=== PATIENT | male | born 1945 | race Caucasian/White ===

== ENCOUNTER → 2017-11-24 08:44 | Outpatient (CLI) | payer MEDICARE, OTHER, SELFPAY ==
[2017-11-24 10:03] LABS: AST(SGOT) 20 U/L (15-37); Alanine Aminotransfer ALT/SGPT 22 U/L (16-61); Albumin, Serum 3.5 g/dL (3.2-5.0); Alkaline Phosphatase 58 U/L (45-117); Bilirubin, Direct 0.26 mg/dL (0.00-0.30); Cholesterol 142 mg/dL (200); High Density Lipoprotein 48 mg/dL; Protein, Total 6.5 g/dL (6.4-8.2); Triglycerides 131 mg/dL; Very Low Density Lipoprotein 26 mg/dL (5-40)
== END ==
PROVIDERS: Family Provider Internal Medicine; PCP Internal Medicine; Visit Provider Internal Medicine Cardiovascular Disease
DX: E78.5 Hyperlipidemia, unspecified (principal); Z79.899 Other long term (current) drug therapy
CPT/HCPCS: 36415; 80061; 80076

== ENCOUNTER → 2018-04-30 10:15 | Outpatient (CLI) | payer MEDICARE, OTHER, SELFPAY ==
[2018-04-30 11:55] LABS: AST(SGOT) 23 U/L (15-37); Alanine Aminotransfer ALT/SGPT 24 U/L (16-61); Albumin, Serum 3.3 g/dL (3.2-5.0); Alkaline Phosphatase 61 U/L (45-117); Bilirubin, Direct 0.19 mg/dL (0.00-0.30); Cholesterol 129 mg/dL (200); Globulin 2.9 g/dL (2.2-4.2); High Density Lipoprotein 46 mg/dL; Protein, Total 6.2 g/dL (6.4-8.2); Triglycerides 95 mg/dL; Very Low Density Lipoprotein 19 mg/dL (5-40)
== END ==
PROVIDERS: Family Provider Internal Medicine; PCP Internal Medicine; Visit Provider Physician Assistant Medical
DX: E78.5 Hyperlipidemia, unspecified (principal); I25.810 Atherosclerosis of coronary artery bypass graft(s) without angina pectoris; Z79.899 Other long term (current) drug therapy
CPT/HCPCS: 80061; 80076

== ENCOUNTER 2018-05-10 04:40 | Inpatient (IN) | payer MEDICARE, OTHER, SELFPAY ==
[2018-05-10] VITALS (26 sets, daily range): BP systolic 63–124; BP diastolic 38–83; PULSE 69–104; RESP 16–20; TEMP 21.1–37.2; O2SAT 94–100; BMI 28.8; BMI 24.6; BMI 24.7
--- NOTE | 2018-05-10 | IMM_PTH ---
PATIENT: MARSHAL PIERCE LOC: [facility] U#:[id number] AGE/SX: 72/M ROOM: [facility] RE05/10/[address]: Dr. Tavia Putnam MD : [id number] BED: 1 DIS: 05/12/2018 SPEC #: [id number] RECD: 05/10/18 14:41 STATUS: SOUT REQ #: [id number] PETE: 05/10/18 00:[address]: Josue Patrick DEPT: IMMUNOHISTOCHEMISTRY RECD BY: Judy Thompson ENTERED: 05/10/18 14:42 SP TYPE: IMMUNO OTHR DR: MD Dr. Becky Cristina MD Dr. Prakash Chand, MD Tissues: Stomach, NOS Procedures: H Pylori (initial) Comments: @ Ordering doctor for H.PYLORI edited from to @ by SHANTEL at 05/10/18 144 @ Submitting doctor edited from to @ by SHANTEL at 05/10/18 144 PHYSICIAN & [place] [id number] SPECIMEN INFORMATION: Tissue Source: Antrum biopsy Clinical Info: GI bleed Specimen Number: [id number] CPT code: 72584 METHODOLOGY: Deparaffinized sections of prefer/formalin-fixed tissue or PAP/DQ stained slides are incubated with monoclonal/polyclonal antibodies/oligonucleotide probes. Localization is made via biotin free immunoperoxidase method. Appropriate controls are performed and reacted as expected. Results on target cell population are indicated in the following table: RESULTS: ANTIBODY / CLONE RESULT H Pylori (polyclonal) negative These tests were developed and their performance characteristics determined by [facility]. They may not have been cleared or approved by the U.S. Food and Drug Administration. The FDA has determined that such clearance or approval is not necessary. INTERPRETATION: Antrum biopsy: Negative for Helicobacter pylori organisms. ALONSO:gavino 05/11/18
--- NOTE | 2018-05-10 04:56 | EKG12_ITS ---
Test Reason : SOB Blood Pressure : / mmHG Vent. Rate : 094 BPM Atrial Rate : 094 BPM P-R Int : 184 ms QRS Dur : 150 ms QT Int : 400 ms P-R-T Axes : 054 -52 037 degrees QTc Int : 500 ms Normal sinus rhythm Right bundle branch block Left anterior fascicular block Bifascicular block Minimal voltage criteria for LVH, may be normal variant Cannot rule out Inferior infarct , age undetermined Abnormal ECG Confirmed by CESAR PAZ, RAKAN ([id number]), photographic editor SUHA HERNÁNDEZ ([id number]) on 05/11/2018 1:59:46 PM Referred By: IRMA Confirmed By:RAKAN GUERRERO MD
--- NOTE | 2018-05-10 04:56 | RAD_ITS ---
STUDY: X-RAY CHEST REASON FOR EXAM: Male, 72 years old. Shortness of breath and weakness TECHNIQUE: Single AP portable view of the chest. COMPARISON: 10/21/2014 FINDINGS: There are superimposed monitor leads. Postsurgical changes bilateral mediastinum as on previous exam. There is hyperinflation of the lungs consistent with chronic obstructive lung disease (COPD). Mild compression of bilateral basilar parenchyma. No focal consolidation detected. There is no demonstrated pleural abnormality. Sternal cerclage wires are present from a prior sternotomy. Normal mediastinum and christoph. Normal visualized pulmonary arteries. There is atherosclerotic calcification of the aortic arch with tortuosity. Obscured thoracic spine. Air distention off intestine below the left diaphragm. RAD/Chest 1 View (Portable) IMPRESSION: Stable COPD and postsurgical changes. Nonspecific compression of basilar parenchyma without confluent pneumonia. Other nonacute findings as outlined above. Electronically Signed: Carol Adhikari MD at 5:40 EDT , Service support ,
[2018-05-10] MEDS: Aspirin 81 MG TAB.CHEW 324 MG PO (05:00)
[2018-05-10 05:17] LABS: Anion Gap 9 (5-15); BUN 47 mg/dL (7-18); BUN/Creat Ratio 48.4 RATIO (10-20); Chloride 107 mmol/L (98-107); Creatinine, Serum 0.97 mg/dL (0.70-1.30); EST Glomerular Filtration Rate 80 mL/min (>60); Est Glom Filt Rate - Afr Amer 97 mL/min (>60); Estimated Creatinine Clearance 73.33 ml/min; Glucose 185 mg/dL (74-106); Potassium 4.8 mmol/L (3.5-5.1); Sodium Level 142 mmol/L (136-145)
[2018-05-10 05:18] LABS: Absolute Lymphocyte Count 2.65 X10^3/ul (0.83-4.51); Absolute Neutrophil Count 7.5 X10^3/uL (2.0-7.7); Basophil# 0.03 X10^3/uL; Basophil% 0.3 % (0-1); Eosinophil# 0.08 X10^3/uL; Eosinophils% 0.7 % (0-5); Hematocrit 35.2 % (40-54); Hemoglobin 11.7 g/dl (13.0-16.5); Lymphocyte # 2.65 X10^3/ul (4.0); Lymphocyte % 24.7 % (19-41); Mean Corp Hgb Conc 33.2 g/gl (32-36); Mean Corpuscular Hgb 31.9 pg (27.0-32.0); Mean Corpuscular Volume 95.9 fL (80-94); Mean Platelet Vol. 11.9 fl (6.2-12.0); Monocyte# 0.44 X10^3/uL; Monocyte% 4.1 % (0-10); Neutrophil # 7.49 X10^3/uL (2.7-7.7); Neutrophil % 69.9 % (47-70); Platelet Count 127 K/mm3 (150-450); RBC Distribution Width SD 43.8 fl (35.1-43.9); Red Blood Count 3.67 M/mm3 (4.6-6.2); White Blood Count 10.7 K/mm3 (4.4-11.0)
[2018-05-10 05:21] LABS: International Normalized Ratio 1.2; Prothrombin Time (Protime)PT. 14.9 SECONDS (11.7-14.9)
[2018-05-10 05:26] LABS: POSITIVE COUNT NO; POSITIVE DIFFERENTIAL NO; POSITIVE MORPHOLOGY NO
--- NOTE | 2018-05-10 05:47 | PCM.HP.STD ---
Problem List (1) HTN (hypertension) Status: Chronic Qualifiers: Hypertension type: essential hypertension Qualified Code(s): I10 - Essential (primary) hypertension (2) Paroxysmal ventricular tachycardia Status: Chronic (3) Atherosclerotic heart disease of [place] coronary artery without angina pectoris Status: Chronic Qualifiers: [place] vs. transplanted heart: unspecified whether [place] or transplanted heart Qualified Code(s): I25.10 - Atherosclerotic heart disease of [place] coronary artery without angina pectoris (4) Aortocoronary bypass status Status: Chronic Comment: CABG TORRES graft LAD, KAMLESH graft to RCA, sapehnous vein graft to Diag 1 (5) Hyperlipidemia Status: Chronic Qualifiers: Hyperlipidemia type: pure hypercholesterolemia Qualified Code(s): E78.00 - Pure hypercholesterolemia, unspecified; E78.0 - Pure hypercholesterolemia History of Present Illness Date of Admission: 05/10/18 Chief Complaint: Dyspnea, diaphoresis The patient is a 72 y/o M w/ PMHx: Hx PVT, HTN, HLD, Former tobacco use, CAD s/p CABG TORRES graft LAD, KAMLESH graft to RCA, sapehnous vein graft to Diag 1 and PCI LCx 05/24/12 and ROSY to LCx secondary to severe in-stent stenosis 12/03/14 who presents to the [facility] ED on 05/10/18 with intermittent diaphoresis and dyspnea over the starting the evening prior to presentation, noted to last < 5 minutes, occurring at rest and resolving; however, he had a more severe episode lasted ~1 hour prompting him to call EMS. He also notes the evening prior having had food that seemed to have not sat well with him with nausea without emesis and stool x 2, the 2nd more soft which is not his usual bowel pattern. Upon ED presentation he noted his symptoms to have resolved and had no further recurrence in the ED. No furthter symptoms upon ED presentation. In the ED work-up included T 97.6, heart rate 104-->88, BP 117/83--> 94/64, respiratory rate 20, 98% on room air, CBC with WBC 10.7, hemoglobin 11.7, platelet 127 without shift, unremarkable coags, BMP with BUN 47, glucose 25, troponin less than 0.015, EKG with slight elevation noted in lead III only, no ST elevation in 2 or aVF, some ST depression in leads V2 and V3 slightly changed from prior, chest x-ray with chronic COPD changes. In ED patient administered aspirin. He most recently evaluated by his executive administrative assistant on 05/07/18. He had a most recent stress test on 05/09/17 which demonstrated evidence of prior myocardial injury no acute evidence of ischemia and was scheduled to have a stress testing per his executive administrative assistant on 05/11/18. Past Medical History Past Medical History (Chronic Problems): Chronic Problems (Last Reviewed 05/07/18 @ 13:15 by Nurys Saldana) HTN (hypertension) (Chronic) Paroxysmal ventricular tachycardia (Chronic) Atherosclerotic heart disease of [place] coronary artery without angina pectoris (Chronic) Presence of stent in coronary artery (Chronic) PTCA with stenting of CX, 05/24/12 @ [facility]; [facility] with ROSY to LCx 12/03/14 Aortocoronary bypass status (Chronic ~07/1986) CABG TORRES graft LAD, KAMLESH graft to RCA, sapehnous vein graft to Diag 1 Encounter for long-term current use of high risk medication (Chronic) Supraventricular tachycardia (Chronic) Hyperlipidemia (Chronic) Medical History: Medical History (Last Reviewed 05/07/18 @ 13:15 by Nurys Saldana) Premature ventricular contraction (Acute) I49.3 Premature atrial contractions (Acute) I49.1 Paroxysmal ventricular tachycardia (Chronic) I47.2 Atherosclerotic heart disease of [place] coronary artery without angina pectoris (Chronic) I25.10 Presence of stent in coronary artery (Chronic) Z95.5 PTCA with stenting of CX, 05/24/12 @ [facility]; [facility] with ROSY to LCx 12/03/14 Encounter for long-term current use of high risk medication (Chronic) Z79.899 Supraventricular tachycardia (Chronic) I47.1 Old myocardial infarction (Resolved) I25.2 1985 Hyperlipidemia (Chronic) E78.5 Allergies No Known Allergies Allergy (Verified 05/10/18 04:45) Home Medications: Ambulatory Orders Medication Instructions Recorded aspirin 81 mg tablet,delayed 81 mg PO QDAY tab 11/23/17 release atorvastatin 80 mg tablet 40 mg PO QDAY 11/23/17 coenzyme Q10 100 mg capsule 100 mg PO QDAY 11/23/17 niacin ER 1,000 mg tablet,extended 1,000 mg PO QDAY tab 11/23/17 release nitroglycerin 0.4 mg sublingual 0.4 mg SUBLINGUAL Q5M PRN 11/23/17 tablet clopidogrel 75 mg tablet 75 mg PO QDAY #90 tab 11/27/17 ezetimibe 10 mg tablet 10 mg PO QDAY #90 tab 11/27/17 flaxseed oil 1,000 mg capsule 1,000 mg PO QDAY 11/27/17 lutein 6 mg capsule 6 mg PO QDAY 11/27/17 metoprolol succinate ER 25 mg 25 mg PO QDAY #90 tab 11/27/17 tablet,extended release 24 hr Surgical History: Surgical History (Last Updated 05/07/18 @ 13:15 by Nurys Saldana) Aortocoronary bypass status (Chronic) Onset Date: ~07/1986 Z95.1 CABG TORRES graft LAD, KAMLESH graft to RCA, sapehnous vein graft to Diag 1 Postsurgical percutaneous transluminal coronary angioplasty (PTCA) status Z98.61 PTCA with stenting of CX, 05/24/12 @ [facility]; [facility] with ROSY to LCx 12/03/14 History of eye surgery Z98.890 History of local excision of skin lesion Z98.890 Lt lower eyelid Surgical History: - - CABG, PCI, BL lower lid region skin CA resection. Psychiatric History: No pertinent psych hx Lives: Spouse/ Significant Other Smoking Status: Former smoker - Quit when he had his CABG 1985. Tobacco Use: Non-smoker Alcohol: None Drugs: None - *Family History Maternal Family History: Family History (Last Reviewed 05/07/18 @ 13:15 by Nurys Saldana) Father CAD (coronary artery disease) Mother CAD (coronary artery disease) Myocardial infarction History Items: Heart Disease Paternal Family History: Family History (Last Reviewed 05/07/18 @ 13:15 by Nurys Saldana) Father CAD (coronary artery disease) Mother CAD (coronary artery disease) Myocardial infarction History Items: Heart Disease Review of Systems Constitutional: Reports: Anorexia, Malaise, Weakness, Fatigue. Denies: Chills, Fever, Weight Change HEENT: Denies: Head Aches, Sinus Congestion, Sinus Drainage Cardiovascular: Denies: Chest Pain, Palpitations Respiratory: Reports: Shortness of Breath, Shortness of breath at rest, Shortness of breath upon exertion. Denies: Cough, Sputum production Gastrointestinal: Reports: Abdominal Pain - Stomach upset/dyspepsia., Dyspepsia, Nausea. Denies: Vomiting Genitourinary: Denies: Dysuria Musculoskeletal: Denies: Joint Pain, Joint Tenderness Skin: Denies: Rash, Wounds Neurological: Denies: Numbness, Tingling, Focal weakness Psychiatric: Denies: Anxiety, Depression, Homicidal Ideations, Suicidal Ideations Hematologic/ Lymphatic: Reports: Anemia. Denies: Easy Bruising, Easy Bleeding VTE Information - Inpt Only VTE Present on Admission: No VTE Mechan Device Prophylaxis: SCD's VTE Pharm Prophylaxis ordered?: Yes Subjective: Seated upright in the ED bed, NAD, notes no current dyspnea, still mild stomach upset and food does not sound appealing. Objective: Physical Examination: General: awake, alert, oriented x 3 and cooperative, seated upright in the ED bed in no apparent distress. Skin: Pale color, turgor, no icterus, cyanosis. HEENT: AT/NC, EOMI, PERRLA, mildly dry MM, no carotid bruits or JVD noted. Lungs: Diminished BS CTA bilaterally, moderate effort, mild decrease BL bases, no rales, ronchi or wheezing. Heart: Regular rate and rhythm; no gallop, rub audible. Abdomen: soft, NTTP, ND, hyperactive BS, no HSM. Extremities: no cyanosis, clubbing, or edema. Neurological: patient awake, alert, oriented x 3; cognitive function intact; pupils equally reactive to light and accomodation; cranial nerves II-XII grossly normal, moving all 4 extremities, no focal deficits, strength moderately globally decreased secondary to acute presentation. Psychiatric: affect appears mildly fatigued, no acute evidence of depressive or anxiety feelings. - Physical Exam Vital Signs Temp Pulse Resp BP Pulse Ox 97.6 F L 104 H 20 H 117/83 H 98 05/10/18 04:41 05/10/18 04:41 05/10/18 04:41 05/10/18 04:41 05/10/18 04:41 Oxygen Flow Rate (L/min) 2 Oxygen Delivery Method Nasal Cannula Weight: 212 lb 8.41 oz Body Mass Index (BMI) 28.8 Laboratory Tests Past 24 Hrs 05/10/18 05/10/18 05/10/18 04:45 04:45 04:45 WBC 10.7 RBC 3.67 L Hgb 11.7 L Hct 35.2 L MCV 95.9 H MCH 31.9 MCHC 33.2 RDW 13.0 RDW Differential 43.8 Plt Count 127 L MPV 11.9 Immature Gran % (Auto) 0.300 Neut % (Auto) 69.9 Lymph % (Auto) 24.7 [place] % (Auto) 4.1 Eos % (Auto) 0.7 Baso % (Auto) 0.3 Absolute Neuts (auto) 7.5 Absolute Lymphs (auto) 2.65 Total Counted Not Reportable PT 14.9 INR 1.2 Sodium 142 Potassium 4.8 Chloride 107 Carbon Dioxide 26.0 Anion Gap 9 BUN 47 H Creatinine 0.97 Estim Creat Clear Calc 73.33 Est GFR (MDRD) Af Amer 97 Est GFR (MDRD) Non-Af 80 BUN/Creatinine Ratio 48.4 H Glucose 185 H Calcium 8.0 L Troponin I < 0.015 Assessment/Plan All Active Problems (Last Reviewed 05/07/18 @ 13:15 by Nurys Saldana) Premature ventricular contraction (Acute) Premature atrial contractions (Acute) Old myocardial infarction (Resolved) The patient is a 72 y/o M w/ PMHx: Hx PVT, HTN, HLD, Former tobacco use, CAD s/p CABG TORRES graft LAD, KAMLESH graft to RCA, sapehnous vein graft to Diag 1 and PCI LCx 05/24/12 and ROSY to LCx secondary to severe in-stent stenosis 12/03/14 who presents to the [facility] ED on 05/10/18 with intermittent diaphoresis and dyspnea over the starting the evening prior to presentation, noted to last < 5 minutes, occurring at rest and resolving; however, he had a more severe episode lasted ~1 hour prompting him to call EMS. (1) Dyspnea, Diaphoresis: ED work-up included T 97.6, heart rate 104--> 88, BP 117/83--> 94/64, respiratory rate 20, 98% on room air, CBC with WBC 10.7, hemoglobin 11.7, platelet 127 without shift, unremarkable coags, BMP with BUN 47, glucose 25, troponin less than 0.015, EKG with slight elevation noted in lead III only, no ST elevation in 2 or aVF, some ST depression in leads V2 and V3 slightly changed from prior, chest x-ray with chronic COPD changes. Will admit to PCU, place on a monitored bed to assure no acute myocardial infarction with serial cardiac enzymes and EKGs. Patient is able to perform exercise and does not have LBBB or V-pacing but does have history of PCI/ST-T changes with unclear wall motion abnormality at rest thus will proceed with AM nuclear treadmill stress test. ASA, NG, morphine. FLP in AM. Mag pending. (2) CAD: s/p CABG TORRES graft LAD, KAMLESH graft to RCA, sapehnous vein graft to Diag 1 and PCI LCx 05/24/12 and ROSY to LCx secondary to severe in-stent stenosis 12/03/14, maintain on asa, plavix, BB, statin therapies. (3) Normocytic anemia: Admission Hgb 11.7, unclear baseline, Fe panel, ferritin, vitamin B12, folic acid pending. (4) Hyperlipidemia: Continue home statin regimen. AM FLP. (5) Hyperglycemia: Admission glucose 185, HgbA1c pending. (6) Former Tobacco use w/ Suspected Chronic COPD: ATC duonebs, PRN albuterol, HOB, IS parameters, encouraged PFTs w/ PCP outpatient. (7) Dyspepsia, Stomach Upset: Possibly secondary to #1; however, may be concurrent mild gastroenteritis, food poisoning. IVFs, PRN antiemetics. (8) DVT Prophylaxis: SCDs, lovenox. Code Visit OBSV E&M: 94060 Initial observation care L3
--- NOTE | 2018-05-10 05:53 | ED.DCSUM_ITS ---
- ER Visit Summary Date of Service: 05/10/18 Chief Complaint: Shortness of breath and diaphoresis History of Present Illness: The patient is a 72 M who presents with shortness of breath and diaphoresis. This has been intermittently occurring all night. He states he is intermittently became diaphoretic and short of breath and this has lasted 5-10 minutes. However before presentation he had a more severe episode which lasted about an hour. Currently he is not short of breath while resting in the bed. His diaphoresis has resolved. He had no associated chest pain. He otherwise denies recent illness except for some mild rhinorrhea. No fever cough nausea vomiting. He is concerned because he does have a significant history of coronary disease and prior PA. He notes that he never had chest pain with his previous heart attacks. He has a history of prior CABG and stents. He is actually scheduled for a routine yearly stress test tomorrow. Physical Examination: Heart rate 104 respiratory rate 20 vitals otherwise unremarkable Patient does appear to have pallor he is not currently diaphoretic Heart regular rate and rhythm Lungs are clear Abdomen soft and nontender Extremities nontender without edema 2+ symmetric radial pulses Test Results: EKG shows sinus rhythm at a rate of 94 with a right bundle branch block and left anterior fascicular block. There is slight elevation noted in lead III only, no ST elevation in 2 or aVF. There is some ST depression in leads V2 and V3. This is slightly changed from prior. Labs notable for hemoglobin 11.7, platelets 127. BUN is 47. Troponin is negative. Chest x-ray shows chronic changes and COPD no consolidation or acute process. Emergency Department Course and Treatment: Patient was given aspirin. Currently he denies any pain or shortness of breath. I am concerned that this is due to cardiac pathology. I feel he will require repeat EKGs serial troponins and cardiology consultation for further evaluation and management. Patient will be discussed with hospitalist and admitted. Treatment Plan: [] Disposition: Admit Impression: Shortness of breath Diaphoresis This note was generated with [employer] dictation software. It may contain incorrect words, spelling, and punctuation that were not noted in review of the chart prior to signing ED Disposition - Plan for ED Patient: Chief Complaint: Shortness of Breath Referrals: Becky Cabral MD [Primary Care Provider] -
--- NOTE | 2018-05-10 05:56 | HP.PCM_ITS ---
Problem List (1) HTN (hypertension) Status: Chronic Qualifiers: Hypertension type: essential hypertension Qualified Code(s): I10 - Essential (primary) hypertension (2) Paroxysmal ventricular tachycardia Status: Chronic (3) Atherosclerotic heart disease of [place] coronary artery without angina pectoris Status: Chronic Qualifiers: [place] vs. transplanted heart: unspecified whether [place] or transplanted heart Qualified Code(s): I25.10 - Atherosclerotic heart disease of [place] coronary artery without angina pectoris (4) Aortocoronary bypass status Status: Chronic Comment: CABG TORRES graft LAD, KAMLESH graft to RCA, sapehnous vein graft to Diag 1 (5) Hyperlipidemia Status: Chronic Qualifiers: Hyperlipidemia type: pure hypercholesterolemia Qualified Code(s): E78.00 - Pure hypercholesterolemia, unspecified; E78.0 - Pure hypercholesterolemia History of Present Illness Date of Admission: 05/10/18 Chief Complaint: Dyspnea, diaphoresis The patient is a 72 y/o M w/ PMHx: Hx PVT, HTN, HLD, Former tobacco use, CAD s/p CABG TORRES graft LAD, KAMLESH graft to RCA, sapehnous vein graft to Diag 1 and PCI LCx 05/24/12 and ROSY to LCx secondary to severe in-stent stenosis 12/03/14 [address] the [facility] ED on 05/10/18 with intermittent diaphoresis and dyspnea over the starting the evening prior to presentation, noted to last < 5 minutes, occurring at rest and resolving; however, he had a more severe episode lasted ~1 hour prompting him to call EMS. He also notes the evening prior having had food that seemed to have not sat well with him with nausea without emesis and stool x 2, the 2nd more soft which is not his usual bowel pattern. Upon ED presentation he noted his symptoms to have resolved and had no further recurrence in the ED. No furthter symptoms upon ED presentation. In the ED work-up included T 97.6, heart rate 104-->88, BP 117/83--> 94/64, respiratory rate 20, 98% on room air, CBC with WBC 10.7, hemoglobin 11.7, platelet 127 without shift, unremarkable coags, BMP with BUN 47, glucose 25, troponin less than 0.015, EKG with slight elevation noted in lead III only, no ST elevation in 2 or aVF, some ST depression in leads V2 and V3 slightly changed from prior, chest x-ray with chronic COPD changes. In ED patient administered aspirin. He most recently evaluated by his camera repairman on 05/07/18. He had a most recent stress test on 05/09/17 which demonstrated evidence of prior myocardial injury no acute evidence of ischemia and was scheduled to have a stress testing per his camera repairman on 05/11/18. Past Medical History Past Medical History (Chronic Problems): Chronic Problems (Last Reviewed 05/07/18 @ 13:15 by Nurys Saldana) HTN (hypertension) (Chronic) Paroxysmal ventricular tachycardia (Chronic) Atherosclerotic heart disease of [place] coronary artery without angina pectoris (Chronic) Presence of stent in coronary artery (Chronic) PTCA with stenting of CX, 05/24/12 @ [facility]; [facility] with ROSY to LCx 12/03/14 Aortocoronary bypass status (Chronic ~07/1986) CABG TORRES graft LAD, KAMLESH graft to RCA, sapehnous vein graft to Diag 1 Encounter for long-term current use of high risk medication (Chronic) Supraventricular tachycardia (Chronic) Hyperlipidemia (Chronic) Medical History: Medical History (Last Reviewed 05/07/18 @ 13:15 by Nurys Saldana) Premature ventricular contraction (Acute) I49.3 Premature atrial contractions (Acute) I49.1 Paroxysmal ventricular tachycardia (Chronic) I47.2 Atherosclerotic heart disease of [place] coronary artery without angina pectoris (Chronic) I25.10 Presence of stent in coronary artery (Chronic) Z95.5 PTCA with stenting of CX, 05/24/12 @ [facility]; [facility] with ROSY to LCx 12/03/14 Encounter for long-term current use of high risk medication (Chronic) Z79.899 Supraventricular tachycardia (Chronic) I47.1 Old myocardial infarction (Resolved) I25.2 1985 Hyperlipidemia (Chronic) E78.5 Allergies No Known Allergies Allergy (Verified 05/10/18 04:45) Home Medications: Ambulatory Orders Medication Instructions Recorded aspirin 81 mg tablet,delayed 81 mg PO QDAY tab 11/23/17 release atorvastatin 80 mg tablet 40 mg PO QDAY 11/23/17 coenzyme Q10 100 mg capsule 100 mg PO QDAY 11/23/17 niacin ER 1,000 mg tablet,extended 1,000 mg PO QDAY tab 11/23/17 release nitroglycerin 0.4 mg sublingual 0.4 mg SUBLINGUAL Q5M PRN 11/23/17 tablet clopidogrel 75 mg tablet 75 mg PO QDAY #90 tab 11/27/17 ezetimibe 10 mg tablet 10 mg PO QDAY #90 tab 11/27/17 flaxseed oil 1,000 mg capsule 1,000 mg PO QDAY 11/27/17 lutein 6 mg capsule 6 mg PO QDAY 11/27/17 metoprolol succinate ER 25 mg 25 mg PO QDAY #90 tab 11/27/17 tablet,extended release 24 hr Surgical History: Surgical History (Last Updated 05/07/18 @ 13:15 by Nurys Saldana) Aortocoronary bypass status (Chronic) Onset Date: ~07/1986 Z95.1 CABG TORRES graft LAD, KAMLESH graft to RCA, sapehnous vein graft to Diag 1 Postsurgical percutaneous transluminal coronary angioplasty (PTCA) status Z98.61 PTCA with stenting of CX, 05/24/12 @ [facility]; [facility] with ROSY to LCx 12/03/14 History of eye surgery Z98.890 History of local excision of skin lesion Z98.890 Lt lower eyelid Surgical History: - - CABG, PCI, BL lower lid region skin CA resection. Psychiatric History: No pertinent psych hx Lives: Spouse/ Significant Other Smoking Status: Former smoker - Quit when he had his CABG 1985. Tobacco Use: Non-smoker Alcohol: None Drugs: None - *Family History Maternal Family History: Family History (Last Reviewed 05/07/18 @ 13:15 by Nurys Saldana) Father CAD (coronary artery disease) Mother CAD (coronary artery disease) Myocardial infarction History Items: Heart Disease Paternal Family History: Family History (Last Reviewed 05/07/18 @ 13:15 by Nurys Saldana) Father CAD (coronary artery disease) Mother CAD (coronary artery disease) Myocardial infarction History Items: Heart Disease Review of Systems Constitutional: Reports: Anorexia, Malaise, Weakness, Fatigue. Denies: Chills, Fever, Weight Change HEENT: Denies: Head Aches, Sinus Congestion, Sinus Drainage Cardiovascular: Denies: Chest Pain, Palpitations Respiratory: Reports: Shortness of Breath, Shortness of breath at rest, Shortness of breath upon exertion. Denies: Cough, Sputum production Gastrointestinal: Reports: Abdominal Pain - Stomach upset/dyspepsia., Dyspepsia, Nausea. Denies: Vomiting Genitourinary: Denies: Dysuria Musculoskeletal: Denies: Joint Pain, Joint Tenderness Skin: Denies: Rash, Wounds Neurological: Denies: Numbness, Tingling, Focal weakness Psychiatric: Denies: Anxiety, Depression, Homicidal Ideations, Suicidal Idea tions Hematologic/ Lymphatic: Reports: Anemia. Denies: Easy Bruising, Easy Bleeding VTE Information - Inpt Only VTE Present on Admission: No VTE Mechan Device Prophylaxis: SCD's VTE Pharm Prophylaxis ordered?: Yes Subjective: Seated upright in the ED bed, NAD, notes no current dyspnea, still mild stomach upset and food does not sound appealing. Objective: Physical Examination: General: awake, alert, oriented x 3 and cooperative, seated upright in the ED bed in no apparent distress. Skin: Pale color, turgor, no icterus, cyanosis. HEENT: AT/NC, EOMI, PERRLA, mildly dry MM, no carotid bruits or JVD noted. Lungs: Diminished BS CTA bilaterally, moderate effort, mild decrease BL bases, no rales, ronchi or wheezing. Heart: Regular rate and rhythm; no gallop, rub audible. Abdomen: soft, NTTP, ND, hyperactive BS, no HSM. Extremities: no cyanosis, clubbing, or edema. Neurological: patient awake, alert, oriented x 3; cognitive function intact; pupils equally reactive to light and accomodation; cranial nerves II-XII grossly normal, moving all 4 extremities, no focal deficits, strength moderately globally decreased secondary to acute presentation. Psychiatric: affect appears mildly fatigued, no acute evidence of depressive or anxiety feelings. - Physical Exam Vital Signs Temp Pulse Resp BP Pulse Ox 97.6 F L 104 H 20 H 117/83 H 98 05/10/18 04:41 05/10/18 04:41 05/10/18 04:41 05/10/18 04:41 05/10/18 04:41 Oxygen Flow Rate (L/min) 2 Oxygen Delivery Method Nasal Cannula Weight: 212 lb 8.41 oz Body Mass Index (BMI) 28.8 Laboratory Tests Past 24 Hrs 05/10/18 05/10/18 05/10/18 04:45 04:45 04:45 WBC 10.7 RBC 3.67 L Hgb 11.7 L Hct 35.2 L MCV 95.9 H MCH 31.9 MCHC 33.2 RDW 13.0 RDW Differential 43.8 Plt Count 127 L MPV 11.9 Immature Gran % (Auto) 0.300 Neut % (Auto) 69.9 Lymph % (Auto) 24.7 [place] % (Auto) 4.1 Eos % (Auto) 0.7 Baso % (Auto) 0.3 Absolute Neuts (auto) 7.5 Absolute Lymphs (auto) 2.65 Total Counted Not Reportable PT 14.9 INR 1.2 Sodium 142 Potassium 4.8 Chloride 107 Carbon Dioxide 26.0 Anion Gap 9 BUN 47 H Creatinine 0.97 Estim Creat Clear Calc 73.33 Est GFR (MDRD) Af Amer 97 Est GFR (MDRD) Non-Af 80 BUN/Creatinine Ratio 48.4 H Glucose 185 H Calcium 8.0 L Troponin I < 0.015 Assessment/Plan All Active Problems (Last Reviewed 05/07/18 @ 13:15 by Nurys Saldana) Premature ventricular contraction (Acute) Premature atrial contractions (Acute) Old myocardial infarction (Resolved) The patient is a 72 y/o M w/ PMHx: Hx PVT, HTN, HLD, Former tobacco use, CAD s/p CABG TORRES graft LAD, KAMLESH graft to RCA, sapehnous vein graft to Diag 1 and PCI LCx 05/24/12 and ROSY to LCx secondary to severe in-stent stenosis 12/03/14 [address] the [facility] ED on 05/10/18 with intermittent diaphoresis and dyspnea over the starting the evening prior to presentation, noted to last < 5 minutes, occurring at rest and resolving; however, he had a more severe episode lasted ~1 hour prompting him to call EMS. (1) Dyspnea, Diaphoresis: ED work-up included T 97.6, heart rate 104--> 88, BP 117/83--> 94/64, respiratory rate 20, 98% on room air, CBC with WBC 10.7, hemoglobin 11.7, platelet 127 without shift, unremarkable coags, BMP with BUN 47, glucose 25, troponin less than 0.015, EKG with slight elevation noted in lead III only, no ST elevation in 2 or aVF, some ST depression in leads V2 and V3 slightly changed from prior, chest x-ray with chronic COPD changes. Will admit to PCU, place on a monitored bed to assure no acute myocardial infarction with serial cardiac enzymes and EKGs. Patient is able to perform exercise and does not have LBBB or V-pacing but does have history of PCI/ST-T changes with unclear wall motion abnormality at rest thus will proceed with AM nuclear treadmill stress test. ASA, NG, morphine. FLP in AM. Mag pending. (2) CAD: s/p CABG TORRES graft LAD, KAMLESH graft to RCA, sapehnous vein graft to Diag 1 and PCI LCx 05/24/12 and ROSY to LCx secondary to severe in-stent stenosis 12/03/14, maintain on asa, plavix, BB, statin therapies. (3) Normocytic anemia: Admission Hgb 11.7, unclear baseline, Fe panel, ferritin, vitamin B12, folic acid pending. (4) Hyperlipidemia: Continue home statin regimen. AM FLP. (5) Hyperglycemia: Admission glucose 185, HgbA1c pending. (6) Former Tobacco use w/ Suspected Chronic COPD: ATC duonebs, PRN albuterol, HOB, IS parameters, encouraged PFTs w/ PCP outpatient. (7) Dyspepsia, Stomach Upset: Possibly secondary to #1; however, may be concurrent mild gastroenteritis, food poisoning. IVFs, PRN antiemetics. (8) DVT Prophylaxis: SCDs, lovenox. Code Visit OBSV E&M: [id number] Initial observation care L3
--- NOTE | 2018-05-10 06:39 | EKG12_ITS ---
Test Reason : ADMISSION EKG Blood Pressure : / mmHG Vent. Rate : 090 BPM Atrial Rate : 090 BPM P-R Int : 164 ms QRS Dur : 152 ms QT Int : 412 ms P-R-T Axes : 073 -51 044 degrees QTc Int : 504 ms Normal sinus rhythm Right bundle branch block Left anterior fascicular block Bifascicular block Cannot rule out Inferior infarct , age undetermined Abnormal ECG Confirmed by Homa Bernstein ([id number]), editor sound SUHA HERNÁNDEZ ([id number]) on 05/14/2018 3:32:55 PM Referred By: Nurys Whitehead Confirmed By:Homa Bernstein
[2018-05-10 07:11] LABS: Ferritin 55 ng/mL (26-388); Iron 160 ug/dL (65-175); Iron Binding Capacity,Total 230 ug/dL (250-450); PERCENT IRON SATURATION 69.6 % (15.0-55.0)
[2018-05-10] MEDS: 0.9% Normal Saline 1,000 ML 100 ML IV (07:18)
[2018-05-10 07:47] LABS: Hemoglobin A1c 5.6 % (4.2-6.3)
--- NOTE | 2018-05-10 08:06 | PCM.PN.HOSP ---
Patient Problems: Active and Suspected Problems (Last Reviewed 05/10/18 @ 12:08 by Alessia Servin PA-C) Hematemesis (Acute) Lightheaded (Acute) Diaphoresis (Acute) Subjective: Nurse called me for hypotension, systolic blood pressure 88/62, map 70/min, heart rate 97/min pulse ox 97% on room air, respiratory rate 18-20/min with hematemesis. Patient had spaghetti and cake last night on the location of his 's birthday. His is not sick. Patient complain of mild upper abdominal discomfort with feeling of diaphoresis and shortness of breath starting last evening. Patient denies any previous history of GI bleed or vomiting. 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 Afterwards, he had 3 stents in left circumflex and is being followed by Dr. Latif. He had seen Dr. Latif a week ago. Patient immediately started on IV Protonix and normal saline 1 L bolus. Was again seen in afternoon. Patient blood pressure has recovered. Blood pressure is 110/69. No tachycardia. Patient had EGD which shows blood clot in the cardia. Cussed with Dr. Josue Patrick Vitals/I&O's: Vital Signs Temp Pulse Resp BP Pulse Ox 97.8 F 97 16 88/62 L 97 05/10/18 06:42 05/10/18 06:42 05/10/18 06:42 05/10/18 06:46 05/10/18 06:42 Oxygen Flow Rate (L/min) 2 Oxygen Delivery Method Room Air Weight: 181 lb 14.102 oz Body Mass Index (BMI) 24.6 General: Alert, Oriented x3, Cooperative HEENT: Atraumatic, PERRLA, EOMI, Normocephalic Neck: Supple, No JVD, Negative Carotid Bruits Lungs: Clear to auscultation, Normal air movement, No rhonchi, No wheeze Cardiovascular: Regular rate, Regular Rhythm, Normal S1, Normal S2, No murmurs, - - On traffic monitor specialist patient has one missed beat otherwise normal sinus rhythm Abdomen: Bowel Sounds Present, Soft, Non Tender Extremities: No edema, Capillary Refill Less than 3 Seconds Skin: No rashes, No breakdown Musculoskeletal: No Tenderness to Palpation of Joints or Extremities Neurological: Cranial nerves II-XII grossly intact Psych/Mental Status: Normal Affect, Appropriate Laboratory Results 05/10/18 04:45: WBC 10.7, RBC 3.67 L, Hgb 11.7 L, Hct 35.2 L, MCV 95.9 H, MCH 31.9, MCHC 33.2, RDW 13.0, RDW Differential 43.8, Plt Count 127 L, MPV 11.9, Immature Gran % (Auto) 0.300, Neut % (Auto) 69.9, Lymph % (Auto) 24.7, [place] % (Auto) 4.1, Eos % (Auto) 0.7, Baso % (Auto) 0.3, Absolute Neuts (auto) 7.5, Absolute Lymphs (auto) 2.65, Total Counted Not Reportable 05/10/18 04:45: PT 14.9, INR 1.2 05/10/18 04:45: Sodium 142, Potassium 4.8, Chloride 107, Carbon Dioxide 26.0, Anion Gap 9, BUN 47 H, Creatinine 0.97, Estim Creat Clear Calc 73.33, Est GFR (MDRD) Af Amer 97, Est GFR (MDRD) Non-Af 80, BUN/Creatinine Ratio 48.4 H, Glucose 185 H, Calcium 8.0 L, Troponin I < 0.015 05/10/18 04:45: Hemoglobin A1c 5.6 05/10/18 04:45: Vitamin B12 Pending 05/10/18 04:45: Iron 160, TIBC 230 L, Iron Saturation 69.6 H, Ferritin 55, Folate 16.80 05/10/18 07:40: Troponin I Pending Current Medications Acetaminophen (Tylenol) 650 mg PO Q6H PRN PRN PRN Reason: Non-cardiac pain (mod-severe) Hydrocodone Bitart/Acetaminophen (Bricelyn 5mg-325mg) 1 - 2 tablet PO Q6H PRN PRN PRN Reason: Moderate-severe pain Al Hydroxide/Mg Hydroxide (Mylanta Ii) 30 ml PO Q6H PRN PRN PRN Reason: Gastric burning Albuterol Sulfate (Ventolin Aerosols) 2.5 mg INHALATION Q2H PRN PRN PRN Reason: dyspnea, wheezing Albuterol/Ipratropium (Duoneb) 3 ml INHALATION Q6HWA.RT THIAGO Atorvastatin Calcium (Lipitor) 40 mg PO QHS [facility] Ezetimibe (Zetia) 10 mg PO DAILY [facility] Famotidine (Pepcid) 20 mg PO BID [facility] Sodium Chloride () 1,000 mls @ 100 mls/hr IV .Q10H [facility] Last Admin: 05/10/18 07:18 Dose: 100 mls/hr Sodium Chloride () 1,000 mls @ 999 mls/hr IV .Q1H1M ONE Stop: 05/10/18 08:39 Pantoprazole Sodium 40 mg/ (Sodium Chloride) 110 mls @ 330 mls/hr IV Q12 [facility] Magnesium Hydroxide (Milk Of Magnesia) 30 ml PO DAILY PRN PRN Reason: Constipation Metoprolol Succinate (Toprol Xl (Beta Corrine)) 25 mg PO DAILY [facility] Morphine Sulfate () 1 - 2 mg IV Q4H PRN PRN PRN Reason: PAIN Nitroglycerin (Nitrostat) 0.4 mg SUBLINGUAL Q5M PRN PRN Reason: CHEST PAIN Ondansetron HCl (Zofran) 4 mg IV Q8H PRN PRN PRN Reason: NAUSEA Promethazine HCl (Phenergan) 12.5 mg IV Q6H PRN PRN PRN Reason: NAUSEA/VOMITING Medical Necessity - Tobacco Use Smoking Status: Former smoker Tobacco Use: Non-smoker Assessment/Plan All Active Problems (Last Reviewed 05/10/18 @ 12:08 by Alessia Servin PA-C) Hematemesis (Acute) Lightheaded (Acute) Diaphoresis (Acute) Premature ventricular contraction (Acute) Premature atrial contractions (Acute) Old myocardial infarction (Resolved) The patient is a 72 y/o M WITH HISTORY OF HTN, HLD, Former tobacco use, CAD s/p CABG TORRES graft LAD, KAMLESH graft to RCA, sapehnous vein graft to Diag 1 and PCI LCx 05/24/12 and ROSY to LCx secondary to severe in-stent stenosis 12/03/14 was 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 1. Hypotension with hypovolemia most probably secondary to upper GI bleed: Started on IV fluid normal saline 1 L bolus and then 125 mill per hour. Titrate IV fluid as per urine output and vitals. General surgeon, Dr. Patrick called in anticipation of need of EGD. Monitor for further any episode of GI bleed. In view of hypotension and hematemesis, hold aspirin, Plavix and Lovenox. Repeat CBC does not show major drop hemoglobin stable at 11.7 and 11.5. Later, patient had EGD which showed a small hiatus hernia. Clotted blood was found in the cardia. Angle of approach was difficult but blood was not dislodged/removed because difficult angle to approach. Gastric antrum was normal. Monitor H&H every 6 hourly. The patient was started on Protonix drip. 2. Dyspnea, diaphoresis with history of coronary artery disease status post CABG and stents high suspicion of angina equivalent: First 2 troponins are negative. Patient had 3 twelve-lead EKG shows normal sinus rhythm with bifascicular block . In view of bifascicular block hard to interpret ST?T wave changes but patient has nonspecific T inversion in V1 and aVR and slight ST depression in V2 to V3. There is mild to be nonspecific in view of bifascicular block. She had a stress test in April 2017 she which reported no obvious ECG patterns during exercise. Chest x-ray chronic COPD changes. In view of follow-up new development, stress test is canceled. 2D echo ordered. Patient also said any previous episodes of MS and in-stent restenosis, he never had chest pain. Serial troponin enzymes to rule out ACS. Discussed verbally with Dr. Latif and reviewed the recent event. He agrees with plan of management. 3. Mild normochromic normal ascitic anemia: Hb terribly stable, 11.7 and 11.5. 4. Other comorbidities include dyslipidemia, hyperglycemia, former tobacco use with chronic COPD: Home medication reconciliation done. DVT propylaxis: On bilateral SCDs. Lovenox discontinued Total time spent in [id number] encounter, review of H&P, vitals, labs and plan of management including hemodynamic monitoring and stabilization, physician consult patient seen and discussion of management with the patient, his and nursing staff total 60 minutes Code Visit Procedures: [id number] Critial Care 1st Hr
--- NOTE | 2018-05-10 08:10 | PN_ITS ---
Patient Problems: Active and Suspected Problems (Last Reviewed 05/10/18 @ 12:08 by Alessia Servin PA-C) Hematemesis (Acute) Lightheaded (Acute) Diaphoresis (Acute) Subjective: Nurse called me for hypotension, systolic blood pressure 88/62, map 70/min, heart rate 97/min pulse ox 97% on room air, respiratory rate 18-20/min with h ematemesis. Patient had spaghetti and cake last night on the location of his 's birthday. His is not sick. Patient complain of mild upper abdominal discomfort with feeling of diaphoresis and shortness of breath starting last evening. Patient denies any previous history of GI bleed or vomiting. He had ND 32 years ago with three-vessel CABG about 3 months later. Afterwards, he had 3 stents in left circumflex and is being followed by Dr. Latif. He had seen Dr. Latif a week ago. Patient immediately started on IV Protonix and normal saline 1 L bolus. Was again seen in afternoon. Patient blood pressure has recovered. Blood pressure is 110/69. No tachycardia. Patient had EGD which shows blood clot in the cardia. Cussed with Dr. Josue Patrick Vitals/I&O's: Vital Signs Temp Pulse Resp BP Pulse Ox 97.8 F 97 16 88/62 L 97 05/10/18 06:42 05/10/18 06:42 05/10/18 06:42 05/10/18 06:46 05/10/18 06:42 Oxygen Flow Rate (L/min) 2 Oxygen Delivery Method Room Air Weight: 181 lb 14.102 oz Body Mass Index (BMI) 24.6 General: Alert, Oriented x3, Cooperative HEENT: Atraumatic, PERRLA, EOMI, Normocephalic Neck: Supple, No JVD, Negative Carotid Bruits Lungs: Clear to auscultation, Normal air movement, No rhonchi, No wheeze Cardiovascular: Regular rate, Regular Rhythm, Normal S1, Normal S2, No murmurs, - - On cardiac nurse specialist patient has one missed beat otherwise normal sinus rhythm Abdomen: Bowel Sounds Present, Soft, Non Tender Extremities: No edema, Capillary Refill Less than 3 Seconds Skin: No rashes, No breakdown Musculoskeletal: No Tenderness to Palpation of Joints or Extremities Neurological: Cranial nerves II-XII grossly intact Psych/Mental Status: Normal Affect, Appropriate Laboratory Results 05/10/18 04:45: WBC 10.7, RBC 3.67 L, Hgb 11.7 L, Hct 35.2 L, MCV 95.9 H, MCH 31.9, MCHC 33.2, RDW 13.0, RDW Differential 43.8, Plt Count 127 L, MPV 11.9, Immature Gran % (Auto) 0.300, Neut % (Auto) 69.9, Lymph % (Auto) 24.7, [place] % (Auto) 4.1, Eos % (Auto) 0.7, Baso % (Auto) 0.3, Absolute Neuts (auto) 7.5, Absolute Lymphs (auto) 2.65, Total Counted Not Reportable 05/10/18 04:45: PT 14.9, INR 1.2 05/10/18 04:45: Sodium 142, Potassium 4.8, Chloride 107, Carbon Dioxide 26.0, Anion Gap 9, BUN 47 H, Creatinine 0.97, Estim Creat Clear Calc 73.33, Est GFR (MDRD) Af Amer 97, Est GFR (MDRD) Non-Af 80, BUN/Creatinine Ratio 48.4 H, Glucose 185 H, Calcium 8.0 L, Troponin I < 0.015 05/10/18 04:45: Hemoglobin A1c 5.6 05/10/18 04:45: Vitamin B12 Pending 05/10/18 04:45: Iron 160, TIBC 230 L, Iron Saturation 69.6 H, Ferritin 55, Folate 16.80 05/10/18 07:40: Troponin I Pending Current Medications Acetaminophen (Tylenol) 650 mg PO Q6H PRN PRN PRN Reason: Non-cardiac pain (mod-severe) Hydrocodone Bitart/Acetaminophen ([place] 5mg-325mg) 1 - 2 tablet PO Q6H PRN PRN PRN Reason: Moderate-severe pain Al Hydroxide/Mg Hydroxide (Mylanta Ii) 30 ml PO Q6H PRN PRN PRN Reason: Gastric burning Albuterol Sulfate (Ventolin Aerosols) 2.5 mg INHALATION Q2H PRN PRN PRN Reason: dyspnea, wheezing Albuterol/Ipratropium (Duoneb) 3 ml INHALATION Q6HWA.RT THIAGO Atorvastatin Calcium (Lipitor) 40 mg PO QHS [facility] Ezetimibe (Zetia) 10 mg PO DAILY [facility] Famotidine (Pepcid) 20 mg PO BID [facility] Sodium Chloride () 1,000 mls @ 100 mls/hr IV .Q10H THIAGO Last Admin: 05/10/18 07:18 Dose: 100 mls/hr Sodium Chloride () 1,000 mls @ 999 mls/hr IV .Q1H1M ONE Stop: 05/10/18 08:39 Pantoprazole Sodium 40 mg/ (Sodium Chloride) 110 mls @ 330 mls/hr IV Q12 [facility] Magnesium Hydroxide (Milk Of Magnesia) 30 ml PO DAILY PRN PRN Reason: Constipation Metoprolol Succinate (Toprol Xl (Beta Corrine)) 25 mg PO DAILY [facility] Morphine Sulfate () 1 - 2 mg IV Q4H PRN PRN PRN Reason: PAIN Nitroglycerin (Nitrostat) 0.4 mg SUBLINGUAL Q5M PRN PRN Reason: CHEST PAIN Ondansetron HCl (Zofran) 4 mg IV Q8H PRN PRN PRN Reason: NAUSEA Promethazine HCl (Phenergan) 12.5 mg IV Q6H PRN PRN PRN Reason: NAUSEA/VOMITING Medical Necessity - Tobacco Use Smoking Status: Former smoker Tobacco Use: Non-smoker Assessment/Plan All Active Problems (Last Reviewed 05/10/18 @ 12:08 by Alessia Servin PA-C) Hematemesis (Acute) Lightheaded (Acute) Diaphoresis (Acute) Premature ventricular contraction (Acute) Premature atrial contractions (Acute) Old myocardial infarction (Resolved) The patient is a 72 y/o M WITH HISTORY OF HTN, HLD, Former tobacco use, CAD s/p CABG TORRES graft LAD, KAMLESH graft to RCA, sapehnous vein graft to Diag 1 and PCI LCx 05/24/12 and ROSY to LCx secondary to severe in-stent stenosis 12/03/14 was admitted der[facility] man 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 1. Hypotension with hypovolemia most probably secondary to upper GI bleed: Started on IV fluid normal saline 1 L bolus and then 125 mill per hour. Titrate IV fluid as per urine output and vitals. General surgeon, Dr. Cebul called in anticipation of need of EGD. Monitor for further any episode of GI bleed. In view of hypotension and hematemesis, hold aspirin, Plavix and Lovenox. Repeat CBC does not show major drop hemoglobin stable at 11.7 and 11.5. Later, patient had EGD which showed a small hiatus hernia. Clotted blood was found in the cardia. Angle of approach was difficult but blood was not dislodged/removed because difficult angle to approach. Gastric antrum was normal. Monitor H&H every 6 hourly. The patient was started on Protonix drip. 2. Dyspnea, diaphoresis with history of coronary artery disease status post CABG and stents high suspicion of angina equivalent: First 2 troponins are negative. Patient had 3 twelve-lead EKG shows normal sinus rhythm with bifascicular block . In view of bifascicular block hard to interpret ST?T wave changes but patient has nonspecific T inversion in V1 and aVR and slight ST depression in V2 to V3. There is mild to be nonspecific in view of bifascicular block. She had a stress test in April 2017 she which reported no obvious ECG patterns during exercise. Chest x-ray chronic COPD changes. In view of follow-up new development, stress test is canceled. 2D echo ordered. Patient also said any previous episodes of ND and in-stent restenosis, he never had chest pain. Serial troponin enzymes to rule out ACS. Discussed verbally with Dr. Latif and reviewed the recent event. He agrees with plan of management. 3. Mild normochromic normal ascitic anemia: Hb terribly stable, 11.7 and 11.5. 4. Other comorbidities include dyslipidemia, hyperglycemia, former tobacco use with chronic COPD: Home medication reconciliation done. DVT propylaxis: On bilateral SCDs. Lovenox discontinued Total time spent in [id number] encounter, review of H&P, vitals, labs and plan of management including hemodynamic monitoring and stabilization, physician consult patient seen and discussion of management with the patient, his and nursing staff total 60 minutes Code Visit Procedures: 97723 Critial Care 1st Hr
--- NOTE | 2018-05-10 08:18 | ECHOCS_ITS ---
Reason For Study: SOB Procedure This was a 2D Doppler, Color Flow transthoracic echocardiogram. The exam was of adequate technical quality. Exam performed portable in patient room. Left Ventricle Normal LV size. Mild concentric left ventricular hypertrophy. Segmental dysfunction with preserved ejection fraction (see wall motion). The estimated ejection fraction is 70 %. Normal diastology for age. Infero-Basal: Akinetic. Right Ventricle Normal RV size. Normal systolic function. Atria Normal left atrium. Normal right atrium. No doppler evidence for ASD. Mitral Valve There is no mitral annular calcification. Normal mitral valve. Trivial mitral valve insufficiency. Tricuspid Valve Normal tricuspid valve. Trivial tricuspid valve insufficiency. Right ventricular systolic pressure estimated to be 28 mmHg. Aortic Valve Trisinus/trileaflet aortic valve. Normal aortic valve. Pulmonic Valve The pulmonic valve is not well visualized. Great Vessels Normal sized aortic root. Pericardium/Pleural No pericardial effusion. MMode/2D Measurements & Calculations LVIDd: 4.2 cm IVSd: 1.3 cm Ao root diam: 3.4 cm LVIDs: 2.7 cm LVPWd: 1.4 cm LA dimension: 3.6 cm RVDd: 3.3 cm FS: 35.8 % LAV(MOD-bp): 26.6 ml EDV(MOD-sp4): 80.3 ml EDV(MOD-sp2): 86.0 ml LAV(MOD-bp) Indexed: 13.0 ml/m2 ESV(MOD-sp4): 23.5 ml EF(MOD-sp2): 63.3 % LAV(MOD-sp2): 31.2 ml EF(MOD-sp4): 70.8 % LAV(MOD-sp4): 22.6 ml SV(MOD-sp4): 56.9 ml SV(MOD-sp2): 54.4 ml LA A4 area: 11.2 cm2 RA A4 area: 9.9 cm2 Doppler Measurements & Calculations MV E max alonso: 45.4 cm/sec Lat Peak E' Alonso: 11.6 cm/sec Med Peak E' Alonso: 8.6 cm/sec MV A max alonso: 73.8 cm/sec E/E' lat: 3.9 E/E' med: 5.3 MV E/A: 0.61 Ao V2 max: 142.2 cm/sec LV V1 max: 104.1 cm/sec PA V2 max: 129.2 cm/sec Ao max P.1 mmHg LV V1 max P.3 mmHg TR max alonso: 250.0 cm/sec TR max P.0 mmHg Interpretation Summary Segmental dysfunction with preserved ejection fraction (see wall motion). The estimated ejection fraction is 70 %. Mild concentric left ventricular hypertrophy. Trivial mitral valve insufficiency. Trivial tricuspid valve insufficiency. Right ventricular systolic pressure estimated to be 28 mmHg. Normal diastology for age. Ordering Physician: Benjamin Coleman Referring Physician: Becky Cabral M.D. Performed By: Raven Farfan RDCS
[2018-05-10] MEDS: 0.9% Normal Saline 1,000 ML 999 ML IV (08:19)
[2018-05-10 08:22] LABS: Absolute Lymphocyte Count 0.82 X10^3/ul (0.83-4.51); Absolute Neutrophil Count 9.7 X10^3/uL (2.0-7.7); Basophil# 0.02 X10^3/uL; Basophil% 0.2 % (0-1); Hematocrit 34.5 % (40-54); Hemoglobin 11.5 g/dl (13.0-16.5); Lymphocyte # 0.82 X10^3/ul (4.0); Lymphocyte % 7.5 % (19-41); Mean Corp Hgb Conc 33.3 g/gl (32-36); Mean Corpuscular Hgb 31.8 pg (27.0-32.0); Mean Corpuscular Volume 95.3 fL (80-94); Monocyte# 0.35 X10^3/uL; Monocyte% 3.2 % (0-10); Neutrophil # 9.67 X10^3/uL (2.7-7.7); Neutrophil % 88.7 % (47-70); POSITIVE COUNT NO; POSITIVE DIFFERENTIAL NO; POSITIVE MORPHOLOGY NO; Platelet Count 122 K/mm3 (150-450); RBC Distribution Width CV 12.9 % (11.6-14.6); RBC Distribution Width SD 43.4 fl (35.1-43.9); Red Blood Count 3.62 M/mm3 (4.6-6.2); White Blood Count 10.9 K/mm3 (4.4-11.0)
[2018-05-10 08:52] LABS: Vitamin B12 425 pg/mL (211-911)
[2018-05-10] MEDS: Metoprolol(XL)Succ 25 MG Tablet PO (09:46)
[2018-05-10] MEDS: Famotidine 20 MG Tablet PO ×2 (09:46→21:16)
[2018-05-10] MEDS: Ezetimibe 10 MG Tablet PO (09:46)
--- NOTE | 2018-05-10 11:33 | PCM.CONS.GEN ---
Problem List (1) Hematemesis Status: Acute (2) Lightheaded Status: Acute (3) Diaphoresis Status: Acute Reason for Consult Date of Consultation: 05/10/18 Reason for Consultation: Acute hematemesis History of Present Illness: The patient is a 72 year old M who presented to the ED with diaphoresis, heaviness in his stomach. Patient noted he was out to eat at an [employer] restaurant for his wives birthday. He had consumed spaghetti, salad, and liliya cracker pie. Patient's noted he told her that his stomach is feeling heavy and that the food feels like it is sitting there. Patient noted he went home and took some TUMs. Patient noted around 1 AM this morning he woke up feeling hot. He tried to go to the bathroom and lay back down. He noted around 0400 AM he became diaphoretic, sweating profusely. Patient had called the squad. He presented to the ED. Patient denies abdominal pain/discomfort, chest pain. He noted shortness of breath and heaviness was his only symptom. Patient noted he was being wheeled to his room in PCU when he went to transfer, he felt lightheaded and nauseated. He vomited one episode of dark, coffee colored emesis. Patient was then placed into bed where his blood pressure was 80's/60's. Patient was given IV boluses. Per patient, ECHO was completed however I am not able to view this. Patient notes a history of cardiac issues. He noted 32 years ago he had a myocardial infarction. He had triple bypass at that time. He has had a stress test almost every year since then. Seventeen years later he had a stress test followed by a cardiac cath with 3 stent placements with non-coated stent. Three years ago he had another abnormal stress test followed by a cardiac cath with a drug coated stent placement within an old stent. Patient is currently on Plavix and aspirin. Patient notes he follows with Dr. Sinha with [facility] and Dr. Latif locally. He notes he is due for a colonoscopy. he denies family history of digestive cancers. He denies smoking. Patient was scheduled for a stress test tomorrow. Patient notes shortness of breath only. Patient notes recent history of basal cell carcinoma excision of the left eye a few weeks ago. Patient's noted he was very nervous for this procedure. She notes since this surgery is when she noticed he was taking more TUMs then normal. Hemoglobin 11.7---->11.5. Platelet count is typically in the 120's. 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 Past Medical History Past Medical History (Chronic Problems): Chronic Problems (Last Reviewed 05/10/18 @ 12:08 by Alessia Servin PA-C) HTN (hypertension) (Chronic) Paroxysmal ventricular tachycardia (Chronic) Atherosclerotic heart disease of [place] coronary artery without angina pectoris (Chronic) Presence of stent in coronary artery (Chronic) PTCA with stenting of CX, 05/24/12 @ [facility]; [facility] with ROSY to LCx 12/03/14 Aortocoronary bypass status (Chronic ~07/1986) CABG TORRES graft LAD, KAMLESH graft to RCA, sapehnous vein graft to Diag 1 Encounter for long-term current use of high risk medication (Chronic) Supraventricular tachycardia (Chronic) Hyperlipidemia (Chronic) Medical History: Medical History (Last Reviewed 05/10/18 @ 12:08 by Alessia Servin PA-C) Premature ventricular contraction (Acute) I49.3 Premature atrial contractions (Acute) I49.1 Paroxysmal ventricular tachycardia (Chronic) I47.2 Atherosclerotic heart disease of [place] coronary artery without angina pectoris (Chronic) I25.10 Presence of stent in coronary artery (Chronic) Z95.5 PTCA with stenting of CX, 05/24/12 @ [facility]; [facility] with ROSY to LCx 12/03/14 Encounter for long-term current use of high risk medication (Chronic) Z79.899 Supraventricular tachycardia (Chronic) I47.1 Old myocardial infarction (Resolved) I25.2 1986 Hyperlipidemia (Chronic) E78.5 Allergies No Known Allergies Allergy (Verified 05/10/18 04:45) Home Medications: Ambulatory Orders Medication Instructions Recorded aspirin 81 mg tablet,delayed 81 mg PO DAILY tab 11/23/17 release coenzyme Q10 100 mg capsule 100 mg PO DAILY 11/23/17 niacin ER 1,000 mg tablet,extended 1,000 mg PO DAILY tab 11/23/17 release nitroglycerin 0.4 mg sublingual 0.4 mg SUBLINGUAL Q5M PRN 11/23/17 tablet flaxseed oil 1,000 mg capsule 1,000 mg PO DAILY 11/27/17 lutein 6 mg capsule 6 mg PO DAILY 11/27/17 Atorvastatin Calcium 40 mg PO QHS 05/10/18 Clopidogrel Bisulfate [Clopidogrel] 75 mg PO DAILY 05/10/18 Ezetimibe 10 mg PO DAILY 05/10/18 Metoprolol(XL)Succ [Toprol Xl 25 mg PO DAILY 05/10/18 (Beta Corrine)] Surgical History: Surgical History (Last Reviewed 05/10/18 @ 12:08 by Alessia Servin PA-C) Aortocoronary bypass status (Chronic) Onset Date: ~07/1986 Z95.1 CABG TORRES graft LAD, KAMLESH graft to RCA, sapehnous vein graft to Diag 1 Postsurgical percutaneous transluminal coronary angioplasty (PTCA) status Z98.61 PTCA with stenting of CX, 05/24/12 @ [facility]; [facility] with ROSY to LCx 12/03/14 History of eye surgery Z98.890 History of local excision of skin lesion Z98.890 Lt lower eyelid Surgical History: - - CABG, PCI, BL lower lid region skin CA resection. Psychiatric History: No pertinent psych hx Lives: Spouse/ Significant Other Smoking Status: Former smoker Tobacco Use: Non-smoker Alcohol: None Drugs: None - *Family History Maternal Family History: Family History (Last Reviewed 05/07/18 @ 13:15 by Nurys Saldana) Father CAD (coronary artery disease) Mother CAD (coronary artery disease) Myocardial infarction History Items: Heart Disease Paternal Family History: Family History (Last Reviewed 05/07/18 @ 13:15 by Nurys Saldana) Father CAD (coronary artery disease) Mother CAD (coronary artery disease) Myocardial infarction History Items: Heart Disease Review of Systems Constitutional: Reports: Malaise, Fatigue HEENT: Denies: Head Aches, Sinus Congestion, Sinus Drainage Cardiovascular: Denies: Chest Pain, Palpitations Respiratory: Reports: Shortness of Breath Gastrointestinal: Reports: Hematemesis Genitourinary: Denies: Dysuria Musculoskeletal: Denies: Joint Pain, Joint Tenderness Skin: Denies: Rash, Wounds Neurological: Denies: Numbness, Tingling, Focal weakness Psychiatric: Denies: Anxiety, Depression, Homicidal Ideations, Suicidal Ideations Hematologic/ Lymphatic: Reports: Easy Bruising, Easy Bleeding Patient Problems: Active and Suspected Problems (Last Reviewed 05/10/18 @ 12:08 by Alessia Servin PA-C) Hematemesis (Acute) Lightheaded (Acute) Diaphoresis (Acute) - Physical Exam General: Alert, Oriented x3, Cooperative HEENT: Atraumatic, PERRLA, EOMI, Normocephalic Neck: Supple, No JVD, Negative Carotid Bruits Lungs: Clear to auscultation, Normal air movement Cardiovascular: Regular rate, No murmurs Abdomen: Bowel Sounds Present, Soft, Non Tender Extremities: No edema, Capillary Refill Less than 3 Seconds Skin: No rashes, No breakdown Musculoskeletal: No Tenderness to Palpation of Joints or Extremities Neurological: Neuro grossly intact Psych/Mental Status: Normal Affect, Appropriate Vital Signs Temp Pulse Resp BP Pulse Ox 98.9 F 91 18 113/61 97 05/10/18 09:40 05/10/18 09:46 05/10/18 09:40 05/10/18 09:40 05/10/18 09:40 Oxygen Flow Rate (L/min) 2 Oxygen Delivery Method Room Air Weight: 181 lb 14.102 oz Body Mass Index (BMI) 24.6 Laboratory Tests Past 24 Hrs 05/10/18 05/10/18 05/10/18 04:45 04:45 04:45 WBC 10.7 RBC 3.67 L Hgb 11.7 L Hct 35.2 L MCV 95.9 H MCH 31.9 MCHC 33.2 RDW 13.0 RDW Differential 43.8 Plt Count 127 L MPV 11.9 Immature Gran % (Auto) 0.300 Neut % (Auto) 69.9 Lymph % (Auto) 24.7 [place] % (Auto) 4.1 Eos % (Auto) 0.7 Baso % (Auto) 0.3 Absolute Neuts (auto) 7.5 Absolute Lymphs (auto) 2.65 Total Counted Not Reportable PT 14.9 INR 1.2 Sodium 142 Potassium 4.8 Chloride 107 Carbon Dioxide 26.0 Anion Gap 9 BUN 47 H Creatinine 0.97 Estim Creat Clear Calc 73.33 Est GFR (MDRD) Af Amer 97 Est GFR (MDRD) Non-Af 80 BUN/Creatinine Ratio 48.4 H Glucose 185 H Hemoglobin A1c Calcium 8.0 L Iron TIBC Iron Saturation Ferritin Troponin I < 0.015 Vitamin B12 Folate 05/10/18 05/10/18 05/10/18 04:45 04:45 04:45 WBC RBC Hgb Hct MCV MCH MCHC RDW RDW Differential Plt Count MPV Immature Gran % (Auto) Neut % (Auto) Lymph % (Auto) [place] % (Auto) Eos % (Auto) Baso % (Auto) Absolute Neuts (auto) Absolute Lymphs (auto) Total Counted PT INR Sodium Potassium Chloride Carbon Dioxide Anion Gap BUN Creatinine Estim Creat Clear Calc Est GFR (MDRD) Af Amer Est GFR (MDRD) Non-Af BUN/Creatinine Ratio Glucose Hemoglobin A1c 5.6 Calcium Iron 160 TIBC 230 L Iron Saturation 69.6 H Ferritin 55 Troponin I Vitamin B12 425 Folate 16.80 05/10/18 05/10/18 05/10/18 07:40 07:40 10:35 WBC 10.9 RBC 3.62 L Hgb 11.5 L Hct 34.5 L MCV 95.3 H MCH 31.8 MCHC 33.3 RDW 12.9 RDW Differential 43.4 Plt Count 122 L MPV 12.0 Immature Gran % (Auto) 0.400 Neut % (Auto) 88.7 H Lymph % (Auto) 7.5 L [place] % (Auto) 3.2 Eos % (Auto) 0.0 Baso % (Auto) 0.2 Absolute Neuts (auto) 9.7 H Absolute Lymphs (auto) 0.82 L Total Counted Not Reportable PT INR Sodium Potassium Chloride Carbon Dioxide Anion Gap BUN Creatinine Estim Creat Clear Calc Est GFR (MDRD) Af Amer Est GFR (MDRD) Non-Af BUN/Creatinine Ratio Glucose Hemoglobin A1c Calcium Iron TIBC Iron Saturation Ferritin Troponin I 0.016 0.019 Vitamin B12 Folate Assessment/Plan All Active Problems (Last Reviewed 05/10/18 @ 12:08 by Alessia Servin PA-C) Hematemesis (Acute) Lightheaded (Acute) Diaphoresis (Acute) Premature ventricular contraction (Acute) Premature atrial contractions (Acute) Old myocardial infarction (Resolved) I have been consulted in conjunction with Dr. Patrick. Impression: Hematemesis, diaphoresis, lightheadedness. Etiology unclear. Plan: Discussed patient with Dr. Patrick. Dr. Patrikc will plan to perform an emergent upper scope. Procedure details, risks and benefits have been explained. Patient and his have had the opportunity to ask and have questions answered. Patient verbally understands and agrees with the plan. Thank you for allowing us to participate in this patient's care. Code Visit Office Visits / Consults: [id number] IP Consult L3
--- NOTE | 2018-05-10 12:51 | OP.ENDO_ITS ---
Patient Name: Mauro Carrillo Procedure Date: 05/10/2018 12:06 PM Date of : 1945 Age: 72 Procedure: Upper GI endoscopy Indications: Hematemesis Providers: Josue Patrick MD Medicines: See the Anesthesia note for documentation of the administered medications Complications: No immediate complications. Procedure: Pre-Anesthesia Assessment: - Prior to the procedure, a History and Physical was performed, and patient medications and allergies were reviewed. The patient's tolerance of previous anesthesia was also reviewed. The risks and benefits of the procedure and the sedation options and risks were discussed with the patient. All questions were answered, and informed consent was obtained. Prior Anticoagulants: The patient has taken Plavix (clopidogrel), last dose was 4 days prior to procedure. ASA Grade Assessment: III - A patient with severe systemic disease. After reviewing the risks and benefits, the patient was deemed in satisfactory condition to undergo the procedure. - Monitored anesthesia care under the supervision of a CHEMISTRY MANAGER was determined to be medically necessary for this procedure based on review of the patient's medical history, medications, and prior anesthesia history. After obtaining informed consent, the endoscope was passed under direct vision. Throughout the procedure, the patient's blood pressure, pulse, and oxygen saturations were monitored continuously. The gastroscope was introduced through the mouth, and advanced to the second part of duodenum. The upper GI endoscopy was performed with difficulty due to excessive bleeding. The patient tolerated the procedure well. Scope In: 12:15:54 PM Scope Out: 12:34:07 PM Total Procedure Duration Time 0 hours 18 minutes 13 seconds Findings: A small hiatal hernia was present. The Z-line was regular and was found 40 cm from the incisors. Clotted blood was found in the cardia. I was not able to completely remove this for visualization. The angle of approach is very difficult. After irrigation and movement of some of the clot I stopped because I did not have an angle to address any bleeding if it were to start. The gastric antrum was normal. Biopsies were taken with a cold forceps for histology. The examined duodenum was normal. Impression: - Small hiatal hernia. - Z-line regular, 40 cm from the incisors. - Clotted blood in the cardia. - Normal antrum. Biopsied. - Normal examined duodenum. Recommendation: - Discontinue aspirin and NSAIDs for 4 days. - Discontinue Plavix (clopidogrel) for 4 weeks. - Observe patient's clinical course. - No aspirin, ibuprofen, naproxen, or other non-steroidal anti-inflammatory drugs for 4 days. Procedure Code(s): --- Professional --- 83697, Esophagogastroduodenoscopy, flexible, transoral; with biopsy, single or multiple Diagnosis Code(s): --- Professional --- K44.9, Diaphragmatic hernia without obstruction or gangrene K92.2, Gastrointestinal hemorrhage, unspecified K92.0, Hematemesis CPT copyright 2017 [employer]. All rights reserved. The codes documented in this report are preliminary and upon senior director review may be revised to meet current compliance requirements. Josue Patrick MD 05/10/2018 12:50:03 PM This report has been signed electronically. Number of Addenda: 0 Note Initiated On: 05/10/2018 12:06 PM
--- NOTE | 2018-05-10 13:00 | EGD_PTH ---
PATIENT: MARSHAL PIERCE LOC: [facility] U#:[id number] AGE/SX: 72/M ROOM: [facility] RE05/10/[address]: Dr. Tavia Putnam MD : [id number] BED: 1 DIS: 05/12/2018 SPEC #: [id number] RECD: 05/10/18 13:37 STATUS: BAO NORA #: [id number] PETE: 05/10/18 13:[address]: Josue Patrick DEPT: SURGICAL PATHOLOGY RECD BY: Stephanie Johnson ENTERED: 05/10/18 14:06 SP TYPE: EGD [facility] DR: MD Dr. Becky Cristina MD Dr. Prakash Chand, MD Tissues: Gastric mucous membrane Procedures: Surgery Specimen Level IV HEADER OPERATION: EGD ([facility] [place]) PRE-OP DIAGNOSIS: GI bleed TISSUE SUBMITTED: Antrum biopsy MICROSCOPIC DIAGNOSIS Antral biopsy: Mild gastritis. Fragments of food particles. ALONSO:gavino 05/11/18 COMMENT The results of immunohistochemistry for Helicobacter pylori will be reported separately ([id number]). MICROSCOPIC DESCRIPTION Slides are reviewed. The specimen shows fragments of gastric mucosa with chronic inflammatory cell infiltrates in the lamina propria consisting of lymphocytes and plasma cells, consistent with mild chronic gastritis. GROSS DESCRIPTION Received in fixative is one container labeled with the patient's name and designated antral biopsy for H. pylori. The specimen consists of one irregular fragment of light woods soft tissue that measures 0.2 x 0.2 x 0.1 cm. The specimen is totally submitted in one cassette. / ALONSO:gavino 05/10/18 TC:3 [facility]: [id number]
[2018-05-10] MEDS: Ipratropium/Albuterol Sulfate 3 ML AMPUL.NEB INHALATION ×2 (13:36→19:40)
[2018-05-10 18:37] LABS: Hematocrit 29.6 % (40-54); Hemoglobin 9.9 g/dl (13.0-16.5)
[2018-05-10] MEDS: Atorvastatin Calcium 40 MG Tablet PO (21:16)
[2018-05-11] VITALS (14 sets, daily range): BP systolic 95–126; BP diastolic 49–67; PULSE 63–78; RESP 16–18; TEMP 36.4–37.1; O2SAT 96–100
[2018-05-11] MEDS: 0.9% Normal Saline 1,000 ML 100 ML IV ×2 (03:19→08:28)
--- NOTE | 2018-05-11 05:12 | PCM.PN.SRG ---
Patient Problems: Active and Suspected Problems (Last Reviewed 05/10/18 @ 12:08 by Alessia Servin PA-C) Hematemesis (Acute) Lightheaded (Acute) Diaphoresis (Acute) Subjective: Pt comfortable,no nausea, no pain, no stools - Physical Exam Abdomen: Soft, Non Tender Vital Signs Temp Pulse Resp BP Pulse Ox 98.5 F 69 16 95/49 L 97 05/11/18 03:20 05/11/18 03:20 05/11/18 03:20 05/11/18 03:20 05/11/18 03:20 Oxygen Flow Rate (L/min) 2 Oxygen Delivery Method Room Air Weight: 181 lb 14.102 oz Body Mass Index (BMI) 24.6 Intake and Output for Last 24 Hours 05/09/18 05/10/18 05/11/18 23:59 23:59 23:59 Intake Total 2594.9 / 2594.9 Output Total 2024 / 2024 Balance 569.9 / 569.9 Laboratory Tests Past 24 Hrs 05/10/18 05/10/18 05/10/18 04:45 04:45 04:45 WBC 10.7 RBC 3.67 L Hgb 11.7 L Hct 35.2 L MCV 95.9 H MCH 31.9 MCHC 33.2 RDW 13.0 RDW Differential 43.8 Plt Count 127 L MPV 11.9 Immature Gran % (Auto) 0.300 Neut % (Auto) 69.9 Lymph % (Auto) 24.7 [place] % (Auto) 4.1 Eos % (Auto) 0.7 Baso % (Auto) 0.3 Absolute Neuts (auto) 7.5 Absolute Lymphs (auto) 2.65 Total Counted Not Reportable PT 14.9 INR 1.2 Sodium 142 Potassium 4.8 Chloride 107 Carbon Dioxide 26.0 Anion Gap 9 BUN 47 H Creatinine 0.97 Estim Creat Clear Calc 73.33 Est GFR (MDRD) Af Amer 97 Est GFR (MDRD) Non-Af 80 BUN/Creatinine Ratio 48.4 H Glucose 185 H Hemoglobin A1c Calcium 8.0 L Iron TIBC Iron Saturation Ferritin Troponin I < 0.015 Vitamin B12 Folate 05/10/18 05/10/18 05/10/18 04:45 04:45 04:45 WBC RBC Hgb Hct MCV MCH MCHC RDW RDW Differential Plt Count MPV Immature Gran % (Auto) Neut % (Auto) Lymph % (Auto) [place] % (Auto) Eos % (Auto) Baso % (Auto) Absolute Neuts (auto) Absolute Lymphs (auto) Total Counted PT INR Sodium Potassium Chloride Carbon Dioxide Anion Gap BUN Creatinine Estim Creat Clear Calc Est GFR (MDRD) Af Amer Est GFR (MDRD) Non-Af BUN/Creatinine Ratio Glucose Hemoglobin A1c 5.6 Calcium Iron 160 TIBC 230 L Iron Saturation 69.6 H Ferritin 55 Troponin I Vitamin B12 425 Folate 16.80 05/10/18 05/10/18 05/10/18 07:40 07:40 10:35 WBC 10.9 RBC 3.62 L Hgb 11.5 L Hct 34.5 L MCV 95.3 H MCH 31.8 MCHC 33.3 RDW 12.9 RDW Differential 43.4 Plt Count 122 L MPV 12.0 Immature Gran % (Auto) 0.400 Neut % (Auto) 88.7 H Lymph % (Auto) 7.5 L [place] % (Auto) 3.2 Eos % (Auto) 0.0 Baso % (Auto) 0.2 Absolute Neuts (auto) 9.7 H Absolute Lymphs (auto) 0.82 L Total Counted Not Reportable PT INR Sodium Potassium Chloride Carbon Dioxide Anion Gap BUN Creatinine Estim Creat Clear Calc Est GFR (MDRD) Af Amer Est GFR (MDRD) Non-Af BUN/Creatinine Ratio Glucose Hemoglobin A1c Calcium Iron TIBC Iron Saturation Ferritin Troponin I 0.016 0.019 Vitamin B12 Folate 05/10/18 18:13 WBC RBC Hgb 9.9 L Hct 29.6 L MCV MCH MCHC RDW RDW Differential Plt Count MPV Immature Gran % (Auto) Neut % (Auto) Lymph % (Auto) [place] % (Auto) Eos % (Auto) Baso % (Auto) Absolute Neuts (auto) Absolute Lymphs (auto) Total Counted PT INR Sodium Potassium Chloride Carbon Dioxide Anion Gap BUN Creatinine Estim Creat Clear Calc Est GFR (MDRD) Af Amer Est GFR (MDRD) Non-Af BUN/Creatinine Ratio Glucose Hemoglobin A1c Calcium Iron TIBC Iron Saturation Ferritin Troponin I Vitamin B12 Folate Medical Necessity - Tobacco Use Smoking Status: Former smoker Tobacco Use: Non-smoker Assessment/Plan All Active Problems (Last Reviewed 05/10/18 @ 12:08 by Alessia Servin PA-C) Hematemesis (Acute) Lightheaded (Acute) Diaphoresis (Acute) Premature ventricular contraction (Acute) Premature atrial contractions (Acute) Old myocardial infarction (Resolved) Will start clears Check serial labs
[2018-05-11 06:30] LABS: Hematocrit 25.8 % (40-54); Hemoglobin 8.6 g/dl (13.0-16.5); Mean Corp Hgb Conc 33.3 g/gl (32-36); Mean Corpuscular Hgb 31.7 pg (27.0-32.0); Mean Corpuscular Volume 95.2 fL (80-94); Mean Platelet Vol. 12.2 fl (6.2-12.0); Platelet Count 90 K/mm3 (150-450); RBC Distribution Width CV 13.2 % (11.6-14.6); Red Blood Count 2.71 M/mm3 (4.6-6.2); White Blood Count 4.8 K/mm3 (4.4-11.0)
[2018-05-11 06:32] LABS: Scan Indicated on CBC? Y/N NO
[2018-05-11 06:33] LABS: International Normalized Ratio 1.2; Prothrombin Time (Protime)PT. 15.4 SECONDS (11.7-14.9)
[2018-05-11 06:34] LABS: Partial Thromboplast Time 25.7 Seconds (24.1-36.2)
[2018-05-11 06:37] LABS: Anion Gap 7 (5-15); BUN 30 mg/dL (7-18); BUN/Creat Ratio 33.4 RATIO (10-20); Calcium,Total 7.4 mg/dL (8.5-10.1); Chloride 116 mmol/L (98-107); Cholesterol 83 mg/dL (200); EST Glomerular Filtration Rate 88 mL/min (>60); Est Glom Filt Rate - Afr Amer 106 mL/min (>60); Estimated Creatinine Clearance 79.04 ml/min; Glucose 88 mg/dL (74-106); High Density Lipoprotein 29 mg/dL; Potassium 3.6 mmol/L (3.5-5.1); Sodium Level 147 mmol/L (136-145); Triglycerides 151 mg/dL; Very Low Density Lipoprotein 30 mg/dL (5-40)
[2018-05-11] MEDS: Ipratropium/Albuterol Sulfate 3 ML AMPUL.NEB INHALATION ×3 (06:59→19:09)
[2018-05-11] MEDS: Ezetimibe 10 MG Tablet PO (09:30)
[2018-05-11] MEDS: Famotidine 20 MG Tablet PO (09:30)
[2018-05-11] MEDS: Metoprolol(XL)Succ 25 MG Tablet PO (09:33)
--- NOTE | 2018-05-11 11:17 | CASEMGMT ---
GABRIELLE SANTIAGO Assessment: Face to Face with patient for initial transition planning/care coordination assessment. GABRIELLE SANTIAGO introduced self and role at [facility], pt voices understanding and consents to assessment at this time. Pt is sitting up in chair in no distress at this time. Pt is A/O x4 at this time and answers all questions appropriately at this time. Care providers, pharmacy, and demographics verified at this time. PCP: Misha Specialists: Bhavya Diaz Pharmacy: [facility] Insurance: [facility] A/B, [employer] Prescription Benefit: [employer] Living Will/HPOA: Yes, has both and , Paulina Carrillo is HPOA and both are on file at [facility] at this time. LNOK: Paulina Carrillo, Living Arrangements: Pt states lives with in home with no concerns at home at this time. Transportation: Pt states drives self and states no transportation concerns at this time. DME/HHC: Cane(does not use currently) and grab bars in shower/tub. Pt states no need for any further DME at this time. Pt states no concerns with going home at time of discharge. Pt states is retired . Pt states does not smoke or drink ETOH. Pt states no further concerns/needs at this time. Advised pt to ask for CM if any further questions/concerns/needs arise, voices understanding Plan: [place] GABRIELLE SANTIAGO
--- NOTE | 2018-05-11 13:11 | PCM.PN.HOSP ---
Patient Problems: Active and Suspected Problems (Last Reviewed 05/10/18 @ 12:08 by Alessia Servin PA-C) Hematemesis (Acute) Lightheaded (Acute) Diaphoresis (Acute) Subjective: Patient entire further episode of hematemesis or melena since yesterday morning. Patient is on IV Protonix drip which we will discontinue and put on Protonix 40 twice daily. Clear liquid diet is started by Dr. Josue Patrick today Currently patient denies epigastric discomfort or pain. Vitals/I&O's: Vital Signs Temp Pulse Resp BP Pulse Ox 98.5 F 63 18 126/53 H 100 05/11/18 09:30 05/11/18 11:03 05/11/18 09:30 05/11/18 09:33 05/11/18 09:30 Oxygen Flow Rate (L/min) 2 Oxygen Delivery Method Room Air Weight: 181 lb 14.102 oz Body Mass Index (BMI) 24.6 Intake and Output for Last 24 Hours 05/09/18 05/10/18 05/11/18 23:59 23:59 23:59 Intake Total 2594.9 / 2594.9 884.1 / 884.1 Output Total 2024 / 2024 Balance 569.9 / 569.9 884.1 / 884.1 General: Alert, Oriented x3, Cooperative HEENT: Atraumatic, PERRLA, EOMI, Normocephalic Neck: Supple, No JVD, Negative Carotid Bruits Lungs: Clear to auscultation, Normal air movement, No rhonchi, No wheeze Cardiovascular: Regular rate, Normal S1, Normal S2, No murmurs Abdomen: Bowel Sounds Present, Soft, Non Tender, Non-Distended Extremities: No edema, Capillary Refill Less than 3 Seconds Skin: No rashes, No breakdown Musculoskeletal: No Tenderness to Palpation of Joints or Extremities, Arthritic Changes Neurological: Cranial nerves II-XII grossly intact Psych/Mental Status: Normal Affect, Appropriate Laboratory Results 05/10/18 18:13: Hgb 9.9 L, Hct 29.6 L 05/11/18 05:34: Sodium 147 H, Potassium 3.6, Chloride 116 H, Carbon Dioxide 24.0, Anion Gap 7, BUN 30 H, Creatinine 0.90, Estim Creat Clear Calc 79.04, Est GFR (MDRD) Af Amer 106, Est GFR (MDRD) Non-Af 88, BUN/Creatinine Ratio 33.4 H, Glucose 88, Calcium 7.4 L, Triglycerides 151, Cholesterol 83, LDL Cholesterol 24, VLDL Cholesterol 30, HDL Cholesterol 29 L 05/11/18 05:34: WBC 4.8, RBC 2.71 L, Hgb 8.6 L, Hct 25.8 L, MCV 95.2 H, MCH 31.7, MCHC 33.3, RDW 13.2, RDW Differential 44.0 H, Plt Count 90 L, MPV 12.2 H 05/11/18 05:34: PT 15.4 H, INR 1.2, APTT 25.7 Current Medications Acetaminophen (Tylenol) 650 mg PO Q6H PRN PRN PRN Reason: Non-cardiac pain (mod-severe) Hydrocodone Bitart/Acetaminophen ([place] 5mg-325mg) 1 - 2 tablet PO Q6H PRN PRN PRN Reason: Moderate-severe pain Al Hydroxide/Mg Hydroxide (Mylanta Ii) 30 ml PO Q6H PRN PRN PRN Reason: Gastric burning Albuterol Sulfate (Ventolin Aerosols) 2.5 mg INHALATION Q2H PRN PRN PRN Reason: dyspnea, wheezing Albuterol/Ipratropium (Duoneb) 3 ml INHALATION Q6HWA.RT [facility] Last Admin: 05/11/18 13:07 Dose: 3 ml Atorvastatin Calcium (Lipitor) 40 mg PO QHS [facility] Last Admin: 05/10/18 21:16 Dose: 40 mg Ezetimibe (Zetia) 10 mg PO DAILY [facility] Last Admin: 05/11/18 09:30 Dose: 10 mg Famotidine (Pepcid) 20 mg PO BID [facility] Last Admin: 05/11/18 09:30 Dose: 20 mg Sodium Chloride () 1,000 mls @ 100 mls/hr IV .Q10H [facility] Last Admin: 05/11/18 08:28 Dose: 100 mls/hr Pantoprazole Sodium 80 mg/ (Sodium Chloride) 100 mls @ 10 mls/hr CONT INF Q10H [facility] Last Admin: 05/11/18 03:19 Dose: 10 mls/hr Magnesium Hydroxide (Milk Of Magnesia) 30 ml PO DAILY PRN PRN Reason: Constipation Metoprolol Succinate (Toprol Xl (Beta Corrine)) 25 mg PO DAILY [facility] Last Admin: 05/11/18 09:33 Dose: 25 mg Morphine Sulfate () 1 - 2 mg IV Q4H PRN PRN PRN Reason: PAIN Nitroglycerin (Nitrostat) 0.4 mg SUBLINGUAL Q5M PRN PRN Reason: CHEST PAIN Ondansetron HCl (Zofran) 4 mg IV Q8H PRN PRN PRN Reason: NAUSEA Promethazine HCl (Phenergan) 12.5 mg IV Q6H PRN PRN PRN Reason: NAUSEA/VOMITING Sodium Chloride () 5 - 30 ml IV UD PRN PRN Reason: SALINE FLUSH Medical Necessity - Tobacco Use Smoking Status: Former smoker Tobacco Use: Non-smoker Assessment/Plan All Active Problems (Last Reviewed 05/10/18 @ 12:08 by Alessia Servin PA-C) Hematemesis (Acute) Lightheaded (Acute) Diaphoresis (Acute) Premature ventricular contraction (Acute) Premature atrial contractions (Acute) Old myocardial infarction (Resolved) The patient is a 72 y/o M WITH HISTORY OF HTN, HLD, Former tobacco use, CAD s/p CABG TORRES graft LAD, KAMLESH graft to RCA, sapehnous vein graft to Diag 1 and PCI LCx 05/24/12 and ROSY to LCx secondary to severe in-stent stenosis 12/03/14 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 1. Hypotension with hypovolemia most probably secondary to upper GI bleed: The patient was started on IV fluid normal saline 1 L bolus and then 125 mill per hour. Titrate IV fluid as per urine output and vitals. Monitor for further any episode of GI bleed. hold aspirin, Plavix and Lovenox. CBC monitoring which shows drop in hemoglobin from 11.7-8.6 g%. On 05/10/2018, patient had EGD which showed a small hiatus hernia. Clotted blood was found in the cardia. Angle of approach was difficult but blood was not dislodged/removed because difficult angle to approach. Gastric antrum was normal. Monitor H&H every 6 hourly. DC Protonix drip and start on Protonix 40 mg IV every 12 hourly. 2. Dyspnea, diaphoresis with history of coronary artery disease status post CABG and stents high suspicion of angina equivalent: Serial 3 troponins are negative. Acute coronary syndrome ruled out. Patient had 3 twelve-lead EKG shows normal sinus rhythm with bifascicular block . Nonspecific ST-T waves abnormalities, difficult to interpret in view of bifascicular block. Repeat 2D echo done yesterday shows EF 70% with segmental dysfunction, akinetic inferobasal. Normal right and left atria. Normal RV size and systolic function. Normal tricuspid and mitral valve with trivial MR. stress test in April 2017 she which reported no obvious ECG patterns during exercise. Chest x-ray chronic COPD changes. In view of follow-up new development, stress test is canceled. Discussed verbally with Dr. Latif and reviewed the recent event. He agrees with plan of management. 3. Acute anemia secondary to upper GI bleed with chronic normochromic normocytic anemia: As mentioned above 4. Other comorbidities include dyslipidemia, hyperglycemia, former tobacco use with chronic COPD: Home medication reconciliation done. DVT propylaxis: On bilateral SCDs. Lovenox discontinued Laboratory Results 05/10/18 18:13: Hgb 9.9 L, Hct 29.6 L 05/11/18 05:34: Sodium 147 H, Potassium 3.6, Chloride 116 H, Carbon Dioxide 24.0, Anion Gap 7, BUN 30 H, Creatinine 0.90, Estim Creat Clear Calc 79.04, Est GFR (MDRD) Af Amer 106, Est GFR (MDRD) Non-Af 88, BUN/Creatinine Ratio 33.4 H, Glucose 88, Calcium 7.4 L, Triglycerides 151, Cholesterol 83, LDL Cholesterol 24, VLDL Cholesterol 30, HDL Cholesterol 29 L 05/11/18 05:34: WBC 4.8, RBC 2.71 L, Hgb 8.6 L, Hct 25.8 L, MCV 95.2 H, MCH 31.7, MCHC 33.3, RDW 13.2, RDW Differential 44.0 H, Plt Count 90 L, MPV 12.2 H 05/11/18 05:34: PT 15.4 H, INR 1.2, APTT 25.7 Code Visit Inpatient E&M: 73533 Subs Hosp L3
--- NOTE | 2018-05-11 13:20 | PN_ITS ---
Patient Problems: Active and Suspected Problems (Last Reviewed 05/10/18 @ 12:08 by Alessia Servin PA-C) Hematemesis (Acute) Lightheaded (Acute) Diaphoresis (Acute) Subjective: Patient entire further episode of hematemesis or melena since yesterday morning. Patient is on IV Protonix drip which we will discontinue and put on Protonix 40 twice daily. Clear liquid diet is started by Dr. Josue Patrick today Currently patient denies epigastric discomfort or pain. Vitals/I&O's: Vital Signs Temp Pulse Resp BP Pulse Ox 98.5 F 63 18 126/53 H 100 05/11/18 09:30 05/11/18 11:03 05/11/18 09:30 05/11/18 09:33 05/11/18 09:30 Oxygen Flow Rate (L/min) 2 Oxygen Delivery Method Room Air Weight: 181 lb 14.102 oz Body Mass Index (BMI) 24.6 Intake and Output for Last 24 Hours 05/09/18 05/10/18 05/11/18 23:59 23:59 23:59 Intake Total 2594.9 / 2594.9 884.1 / 884.1 Output Total 2024 / 2024 Balance 569.9 / 569.9 884.1 / 884.1 General: Alert, Oriented x3, Cooperative HEENT: Atraumatic, PERRLA, EOMI, Normocephalic Neck: Supple, No JVD, Negative Carotid Bruits Lungs: Clear to auscultation, Normal air movement, No rhonchi, No wheeze Cardiovascular: Regular rate, Normal S1, Normal S2, No murmurs Abdomen: Bowel Sounds Present, Soft, Non Tender, Non-Distended Extremities: No edema, Capillary Refill Less than 3 Seconds Skin: No rashes, No breakdown Musculoskeletal: No Tenderness to Palpation of Joints or Extremities, Arthritic Changes Neurological: Cranial nerves II-XII grossly intact Psych/Mental Status: Normal Affect, Appropriate Laboratory Results 05/10/18 18:13: Hgb 9.9 L, Hct 29.6 L 05/11/18 05:34: Sodium 147 H, Potassium 3.6, Chloride 116 H, Carbon Dioxide 24.0, Anion Gap 7, BUN 30 H, Creatinine 0.90, Estim Creat Clear Calc 79.04, Est GFR (MDRD) Af Amer 106, Est GFR (MDRD) Non-Af 88, BUN/Creatinine Ratio 33.4 H, Glucose 88, Calcium 7.4 L, Triglycerides 151, Cholesterol 83, LDL Cholesterol 24, VLDL Cholesterol 30, HDL Cholesterol 29 L 05/11/18 05:34: WBC 4.8, RBC 2.71 L, Hgb 8.6 L, Hct 25.8 L, MCV 95.2 H, MCH 31.7, MCHC 33.3, RDW 13.2, RDW Differential 44.0 H, Plt Count 90 L, MPV 12.2 H 05/11/18 05:34: PT 15.4 H, INR 1.2, APTT 25.7 Current Medications Acetaminophen (Tylenol) 650 mg PO Q6H PRN PRN PRN Reason: Non-cardiac pain (mod-severe) Hydrocodone Bitart/Acetaminophen ([place] 5mg-325mg) 1 - 2 tablet PO Q6H PRN PRN PRN Reason: Moderate-severe pain Al Hydroxide/Mg Hydroxide (Mylanta Ii) 30 ml PO Q6H PRN PRN PRN Reason: Gastric burning Albuterol Sulfate (Ventolin Aerosols) 2.5 mg INHALATION Q2H PRN PRN PRN Reason: dyspnea, wheezing Albuterol/Ipratropium (Duoneb) 3 ml INHALATION Q6HWA.RT [facility] Last Admin: 05/11/18 13:07 Dose: 3 ml Atorvastatin Calcium (Lipitor) 40 mg PO QHS [facility] Last Admin: 05/10/18 21:16 Dose: 40 mg Ezetimibe (Zetia) 10 mg PO DAILY [facility] Last Admin: 05/11/18 09:30 Dose: 10 mg Famotidine (Pepcid) 20 mg PO BID [facility] Last Admin: 05/11/18 09:30 Dose: 20 mg Sodium Chloride () 1,000 mls @ 100 mls/hr IV .Q10H [facility] Last Admin: 05/11/18 08:28 Dose: 100 mls/hr Pantoprazole Sodium 80 mg/ (Sodium Chloride) 100 mls @ 10 mls/hr CONT INF Q10H [facility] Last Admin: 05/11/18 03:19 Dose: 10 mls/hr Magnesium Hydroxide (Milk Of Magnesia) 30 ml PO DAILY PRN PRN Reason: Constipation Metoprolol Succinate (Toprol Xl (Beta Corrine)) 25 mg PO DAILY [facility] Last Admin: 05/11/18 09:33 Dose: 25 mg Morphine Sulfate () 1 - 2 mg IV Q4H PRN PRN PRN Reason: PAIN Nitroglycerin (Nitrostat) 0.4 mg SUBLINGUAL Q5M PRN PRN Reason: CHEST PAIN Ondansetron HCl (Zofran) 4 mg IV Q8H PRN PRN PRN Reason: NAUSEA Promethazine HCl (Phenergan) 12.5 mg IV Q6H PRN PRN PRN Reason: NAUSEA/VOMITING Sodium Chloride () 5 - 30 ml IV UD PRN PRN Reason: SALINE FLUSH Medical Necessity - Tobacco Use Smoking Status: Former smoker Tobacco Use: Non-smoker Assessment/Plan All Active Problems (Last Reviewed 05/10/18 @ 12:08 by Alessia Servin PA-C) Hematemesis (Acute) Lightheaded (Acute) Diaphoresis (Acute) Premature ventricular contraction (Acute) Premature atrial contractions (Acute) Old myocardial infarction (Resolved) The patient is a 72 y/o M WITH HISTORY OF HTN, HLD, Former tobacco use, CAD s/p CABG TORRES graft LAD, KAMLESH graft to RCA, sapehnous vein graft to Diag 1 and PCI LCx 05/24/12 and ROSY to LCx secondary to severe in-stent stenosis 12/03/14 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 1. Hypotension with hypovolemia most probably secondary to upper GI bleed: The patient was started on IV fluid normal saline 1 L bolus and then 125 mill per hour. Titrate IV fluid as per urine output and vitals. Monitor for further any episode of GI bleed. hold aspirin, Plavix and Lovenox. CBC monitoring which shows drop in hemoglobin from 11.7-8.6 g%. On 05/10/2018, patient had EGD which showed a small hiatus hernia. Clotted blood was found in the cardia. Angle of approach was difficult but blood was not dislodged/removed because difficult angle to approach. Gastric antrum was normal. Monitor H&H every 6 hourly. DC Protonix drip and start on Protonix 40 mg IV every 12 hourly. 2. Dyspnea, diaphoresis with history of coronary artery disease status post CABG and stents high suspicion of angina equivalent: Serial 3 troponins are negative. Acute coronary syndrome ruled out. Patient had 3 twelve-lead EKG shows normal sinus rhythm with bifascicular block . Nonspecific ST-T waves abnormalities, difficult to interpret in view of bifascicular block. Repeat 2D echo done yesterday shows EF 70% with segmental dysfunction, akinetic inferobasal. Normal right and left atria. Normal RV size and systolic function . Normal tricuspid and mitral valve with trivial MR. stress test in April 2017 she which reported no obvious ECG patterns during exercise. Chest x-ray chronic COPD changes. In view of follow-up new development, stress test is canceled. Discussed verbally with Dr. Latif and reviewed the recent event. He agrees with plan of management. 3. Acute anemia secondary to upper GI bleed with chronic normochromic normocytic anemia: As mentioned above 4. Other comorbidities include dyslipidemia, hyperglycemia, former tobacco use with chronic COPD: Home medication reconciliation done. DVT propylaxis: On bilateral SCDs. Lovenox discontinued Laboratory Results 05/10/18 18:13: Hgb 9.9 L, Hct 29.6 L 05/11/18 05:34: Sodium 147 H, Potassium 3.6, Chloride 116 H, Carbon Dioxide 24.0, Anion Gap 7, BUN 30 H, Creatinine 0.90, Estim Creat Clear Calc 79.04, Est GFR (MDRD) Af Amer 106, Est GFR (MDRD) Non-Af 88, BUN/Creatinine Ratio 33.4 H, Glucose 88, Calcium 7.4 L, Triglycerides 151, Cholesterol 83, LDL Cholesterol 24, VLDL Cholesterol 30, HDL Cholesterol 29 L 05/11/18 05:34: WBC 4.8, RBC 2.71 L, Hgb 8.6 L, Hct 25.8 L, MCV 95.2 H, MCH 31.7, MCHC 33.3, RDW 13.2, RDW Differential 44.0 H, Plt Count 90 L, MPV 12.2 H 05/11/18 05:34: PT 15.4 H, INR 1.2, APTT 25.7 Code Visit Inpatient E&M: 93016 Subs Hosp L3
--- NOTE | 2018-05-11 13:21 | CASEMGMT ---
Patient has a healthcare power of ip attorney and healthcare living will on file in the e-chart. Rosario ALFORD MSW
[2018-05-11 16:33] LABS: Hematocrit 26.4 % (40-54); Hemoglobin 8.9 g/dl (13.0-16.5)
[2018-05-11] MEDS: 0.9% Normal Saline 1,000 ML 75 ML IV (19:02)
[2018-05-11] MEDS: Atorvastatin Calcium 40 MG Tablet PO (21:38)
[2018-05-11 22:16] LABS: Hematocrit 24.5 % (40-54); Hemoglobin 8.2 g/dl (13.0-16.5)
[2018-05-11] MEDS: 0.9% NaCl Peripheral Flush Adult/Peds IV (23:01)
[2018-05-12] VITALS (13 sets, daily range): BP systolic 102–121; BP diastolic 51–70; PULSE 68–89; RESP 14–18; TEMP 36.8–37.1; O2SAT 95–100
--- NOTE | 2018-05-12 05:44 | PCM.PN.SRG ---
Patient Problems: Active and Suspected Problems (Last Reviewed 05/10/18 @ 12:08 by Alessia Servin PA-C) Hematemesis (Acute) Lightheaded (Acute) Diaphoresis (Acute) Subjective: No stool yesterday Feels well - Physical Exam General: Alert, Oriented x3 Abdomen: Soft, Non Tender Vital Signs Temp Pulse Resp BP Pulse Ox 98.8 F 71 14 111/60 95 05/12/18 03:33 05/12/18 03:33 05/12/18 03:33 05/12/18 03:33 05/12/18 03:33 Oxygen Flow Rate (L/min) 2 Oxygen Delivery Method Room Air Weight: 181 lb 14.102 oz Body Mass Index (BMI) 24.6 Intake and Output for Last 24 Hours 05/10/18 05/11/18 05/12/18 23:59 23:59 23:59 Intake Total 2594.9 / 2594.9 4447.1 / 4447.1 Output Total 2024 Balance 569.9 / 569.9 4447.1 / 4447.1 Laboratory Tests Past 24 Hrs 05/11/18 05/11/18 05/11/18 05:34 05:34 05:34 WBC 4.8 RBC 2.71 L Hgb 8.6 L Hct 25.8 L MCV 95.2 H MCH 31.7 MCHC 33.3 RDW 13.2 RDW Differential 44.0 H Plt Count 90 L MPV 12.2 H PT 15.4 H INR 1.2 APTT 25.7 Sodium 147 H Potassium 3.6 Chloride 116 H Carbon Dioxide 24.0 Anion Gap 7 BUN 30 H Creatinine 0.90 Estim Creat Clear Calc 79.04 Est GFR (MDRD) Af Amer 106 Est GFR (MDRD) Non-Af 88 BUN/Creatinine Ratio 33.4 H Glucose 88 Calcium 7.4 L Triglycerides 151 Cholesterol 83 LDL Cholesterol 24 VLDL Cholesterol 30 HDL Cholesterol 29 L 05/11/18 05/11/18 16:12 22:00 WBC RBC Hgb 8.9 L 8.2 L Hct 26.4 L 24.5 L MCV MCH MCHC RDW RDW Differential Plt Count MPV PT INR APTT Sodium Potassium Chloride Carbon Dioxide Anion Gap BUN Creatinine Estim Creat Clear Calc Est GFR (MDRD) Af Amer Est GFR (MDRD) Non-Af BUN/Creatinine Ratio Glucose Calcium Triglycerides Cholesterol LDL Cholesterol VLDL Cholesterol HDL Cholesterol Medical Necessity - Tobacco Use Smoking Status: Former smoker Tobacco Use: Non-smoker Assessment/Plan All Active Problems (Last Reviewed 05/10/18 @ 12:08 by Alessia Servin PA-C) Hematemesis (Acute) Lightheaded (Acute) Diaphoresis (Acute) Premature ventricular contraction (Acute) Premature atrial contractions (Acute) Old myocardial infarction (Resolved) Pt clinically appears very stable Will await repeat labs He is not passing stool so I have a lower suspicion for significant gastric bleeding. Labs seem to be quite variable with different draws Will plan outpt EGD this coming week if remains stable Will hold anticoagulants till repeat exam performed
[2018-05-12 06:36] LABS: Hematocrit 22.8 % (40-54); Hemoglobin 7.5 g/dl (13.0-16.5); Mean Corp Hgb Conc 32.9 g/gl (32-36); Mean Corpuscular Hgb 31.6 pg (27.0-32.0); Mean Corpuscular Volume 96.2 fL (80-94); Mean Platelet Vol. 11.8 fl (6.2-12.0); Platelet Count 82 K/mm3 (150-450); RBC Distribution Width CV 13.4 % (11.6-14.6); RBC Distribution Width SD 44.3 fl (35.1-43.9); Red Blood Count 2.37 M/mm3 (4.6-6.2); White Blood Count 4.3 K/mm3 (4.4-11.0)
[2018-05-12 06:44] LABS: Scan Indicated on CBC? Y/N NO
[2018-05-12] MEDS: Ipratropium/Albuterol Sulfate 3 ML AMPUL.NEB INHALATION ×2 (07:45→11:25)
[2018-05-12] MEDS: 0.9% Normal Saline 1,000 ML 75 ML IV (10:16)
[2018-05-12] MEDS: Metoprolol(XL)Succ 25 MG Tablet PO (10:16)
[2018-05-12] MEDS: Ezetimibe 10 MG Tablet PO (10:16)
--- NOTE | 2018-05-12 12:53 | DCINST_ITS ---
- Discharge Diagnoses Current Active Problems: Current Active and Chronic Problems (Last Reviewed 05/10/18 @ 12:08 by Alessia Servin PA-C) HTN (hypertension) (Chronic) Hematemesis (Acute) Lightheaded (Acute) Diaphoresis (Acute) You will use the following diet at home:: Cardiac Your food should be the consistency of: Regular Your liquids should be the consistency of: Regular/Thin Weight Bearing Status: Weight bearing as tolerated Allergies/Adverse Reactions: Allergies No Known Allergies Allergy (Verified 05/10/18 04:45) Medications to take at Discharge coenzyme Q10 100 mg capsule 100 mg PO DAILY 11/23/17 niacin ER 1,000 mg tablet,extended release 1,000 mg PO DAILY tab 11/23/17 nitroglycerin 0.4 mg sublingual tablet 0.4 mg SUBLINGUAL Q5M PRN 11/23/17 flaxseed oil 1,000 mg capsule 1,000 mg PO DAILY 11/27/17 lutein 6 mg capsule 6 mg PO DAILY 11/27/17 Atorvastatin Calcium 40 mg PO QHS 05/10/18 Ezetimibe 10 mg PO DAILY 05/10/18 Metoprolol(XL)Succ [Toprol Xl (Beta Corrine)] 25 mg PO DAILY 05/10/18 Primary Care Physician: Becky Cabral MD [Primary Care Provider] - Please follow up with your Primary Care Physician in: one week Test Results: Test results from this visit will be discussed in further detail at your follow- up appointment, if applicable. Please Follow Up With: Becky Cabral MD Proposed Discharge Date: 05/12/18
--- NOTE | 2018-05-12 12:54 | PCM.DC.SUM ---
Discharge Date and Diagnosis Date of Admission: 05/10/18 Date of Discharge: 05/12/18 - Primary Discharge Diagnosis Active and Suspected Problems (Last Reviewed 05/10/18 @ 12:08 by Alessia Servin PA-C) Hematemesis (Acute) Lightheaded (Acute) Diaphoresis (Acute) UGI bleed - Secondary Discharge Diagnosis Chronic Problems (Last Reviewed 05/10/18 @ 12:08 by Alessia Servin PA-C) HTN (hypertension) (Chronic) Paroxysmal ventricular tachycardia (Chronic) Atherosclerotic heart disease of [place] coronary artery without angina pectoris (Chronic) Presence of stent in coronary artery (Chronic) PTCA with stenting of CX, 05/24/12 @ [facility]; [facility] with ROSY to LCx 12/03/14 Aortocoronary bypass status (Chronic ~07/1986) CABG TORRES graft LAD, KAMLESH graft to RCA, sapehnous vein graft to Diag 1 Encounter for long-term current use of high risk medication (Chronic) Supraventricular tachycardia (Chronic) Hyperlipidemia (Chronic) Hospital Course and Treatment Imaging Results: Diagnostic Data Chest X-Ray 05/10/18 04:56 IMPRESSION: Stable COPD and postsurgical changes. Nonspecific compression of basilar parenchyma without confluent pneumonia. Other nonacute findings as outlined above. Electronically Signed: Carol Adhikari MD at 5:40 EDT , Service support , general surgery Procedures: - - EGD Summary of Care Provided: The patient is a 72 year old M with an extensive PMH as listed above. He was admitted by the ED on 05/10/2018 with complaint of intermittent diaphoresis and dyspnea which started 1 day prior to admission, occurring at rest and had a subsequent episode which lasted for more than an hour troponin came to call the EMS. The night before, he had complained of food sitting well with him after eating. The ED, initial troponin was negative and EKG showed slight elevation noted only in lead III with no ST elevation in lead II aVF and mild ST depression in leads V2 and V3. He was given aspirin in the ED and managed initially to rule out ACS. Patient subsequently became hypotensive and complained of mild upper abdominal discomfort with feeling of diaphoresis and shortness of breath. He was started on IV Protonix drip and given a bolus of 1 L. Aspirin and plavix were discontinued. He subsequently had EGD by general surgery which showed normal gastric antrum and showed clotted blood in the gastric cardia. Duodenum was normal. H pylori test of gastric antrum was negative. Angle of approach was difficult blood blood clot was not dislodged and removed due to difficulty in approach. Patient remained stable, but his Hb was noted to have dropped from 11.5 on admission, gradually down to 7.5 on 05/12/18. Patient was transfused one unit of blood on 05/12/18. General surgery advised that patient be transferred to a tertiary center and as there wasnt anything else they could do for patient here. Of note, patient had an echocardiogram done on 05/10/2018 which showed marked concentric left ventricular hypertrophy with normal diastolic for age and estimated EF of 70% with akinetic inferior basal. RVSP was 28 mmHg. Antral gastric biopsy was negative for H. pylori. Patient was transferred to [facility] on 05/12/2018 2 the internal medicine service for specialist GI assessment. Patient seen and examined prior to discharge. He had no complaints and said he felt well. He denied any fever or chills, and cough or chest pain, any shortness of breath, abdominal pain, any diarrhea vomiting. 12 point review of systems otherwise negative. Labs and vitals reviewed. o/e: Vital Signs Height 6 ft Weight: 181 lb 14.102 oz Weight in Pounds 181.9 lbs Pulse Ox 100 Temperature 98.3 F Pulse Rate 87 Respiratory Rate 16 Blood Pressure [2nd BP] 94/63 Blood Pressure 117/70 Blood Pressure Position [2nd Semi-Fowlers BP] Blood Pressure Position Sitting [] General: Alert, Oriented x3, Cooperative HEENT: Atraumatic, PERRLA, EOMI, Normocephalic Neck: Supple, No JVD, Negative Carotid Bruits Lungs: Clear to auscultation, Normal air movement, No rhonchi, No wheeze Cardiovascular: Regular rate, Normal S1, Normal S2, No murmurs Abdomen: Bowel Sounds Present, Soft, Non Tender, Non-Distended Extremities: No edema, Capillary Refill Less than 3 Seconds Skin: No rashes, No breakdown Musculoskeletal: No Tenderness to Palpation of Joints or Extremities, Arthritic Changes Neurological: Cranial nerves II-XII grossly intact Psych/Mental Status: Normal Affect, Appropriate Plan as stated above. He is being transferred to [facility] general medicine floor, for specialist GI evaluation. Discharge Diet: Low fat/ Low Cholesterol Weight Bearing Status: Weight bearing as tolerated Home Medications: Medications to take at Discharge coenzyme Q10 100 mg capsule 100 mg PO DAILY 11/23/17 niacin ER 1,000 mg tablet,extended release 1,000 mg PO DAILY tab 11/23/17 nitroglycerin 0.4 mg sublingual tablet 0.4 mg SUBLINGUAL Q5M PRN 11/23/17 flaxseed oil 1,000 mg capsule 1,000 mg PO DAILY 11/27/17 lutein 6 mg capsule 6 mg PO DAILY 11/27/17 Atorvastatin Calcium 40 mg PO QHS 05/10/18 Ezetimibe 10 mg PO DAILY 05/10/18 Metoprolol(XL)Succ [Toprol Xl (Beta Corrine)] 25 mg PO DAILY 05/10/18 Primary Care Physician: Becky Cabral MD [Primary Care Provider] - Please follow up with your Primary Care Physician in: one week Please Follow Up With: Becky Cabral MD Disposition: [facility] care [facility] - [facility] Minutes spent on discharge:: 40 Patient Condition:: Stable Medical Necessity - Tobacco Use Smoking Status: Former smoker Tobacco Use: Non-smoker Meaningful Use Info Meaningful Use Diagnoses (Choose all that apply): None applicable Code Visit Inpatient E&M: 05281 Disch Hosp
--- NOTE | 2018-05-12 14:38 | NURSING ---
Patient states he was to receive flu vaccine on discharge. Patient declined offer from this nurse to see if vaccine should be ordered. Refuses vaccine at this time.
== END 2018-05-12 14:37 | disposition short-term general hospital (02) | DRG 378 ==
LOC: ED 05:03 → PCU 06:17
PROVIDERS: Internal Medicine; Surgery; Admitting Provider Family Medicine; Emergency Provider Emergency Medicine; Family Provider Internal Medicine; PCP Internal Medicine; Visit Provider Student in an Organized Health Care Education/Training Program
PROC: 0DJ08ZZ Inspection of Upper Intestinal Tract, Via Natural or Artificial Opening Endoscopic (ICD-10-PCS; CPT 43235; principal; 2018-05-10 12:55)
DX: K92.2 Gastrointestinal hemorrhage, unspecified (principal); D62 Acute posthemorrhagic anemia; I45.2 Bifascicular block; I25.10 Atherosclerotic heart disease of native coronary artery without angina pectoris; E78.5 Hyperlipidemia, unspecified; I10 Essential (primary) hypertension; K44.9 Diaphragmatic hernia without obstruction or gangrene; Z95.5 Presence of coronary angioplasty implant and graft; Z95.1 Presence of aortocoronary bypass graft; Z87.891 Personal history of nicotine dependence; I25.2 Old myocardial infarction; Z79.82 Long term (current) use of aspirin; Z79.02 Long term (current) use of antithrombotics/antiplatelets
CPT/HCPCS: 36415; 71045; 80048; 80061; 82607; 82728; 82746; 83036; 83540; 83550; 84484; 85014; 85018; 85025; 85027; 85610; 85730; 86850; 86900; 86920; 86922; 88305; 88342; 93005; 93306; 94640; 99285; J7030; J7040; P9016; A4216; C8929

== ENCOUNTER → 2018-06-01 06:55 | Outpatient (CLI) | payer MEDICARE, OTHER, SELFPAY ==
--- NOTE | 2018-06-01 15:51 | STRESSREP ---
Stress Test Report Date: 06/01/2018 Procedure: Exercise tolerance test/imaging study Indications: CAD; CABG; PCI Consent: Per the patient Procedure: The patient exercised on a Nathan protocol for 7 minutes completing Stage II and 1 minute of Stage III achieving a peak heart rate of 157 bpm (107 % predicted maximal heart rate) with a peak blood pressure 170/80 mmHg and a peak MET capacity of 8 METs. The baseline ECG demonstrated normal sinus rhythm; right bundle branch block pattern. The peak exercise ECG demonstrated approximately 1-2 mm horizontal/downsloping ST segment depression in leads I, aVL, and V2 with gradual resolution towards baseline in recovery. There were rare PVCs during exercise and recovery; there were rare ventricular couplets during recovery. The functional capacity was considered good. There was no complaint of chest discomfort during exercise or recovery. The examination was discontinued secondary to dyspnea. Impression: 1. Technically adequate (percent predicted maximal heart rate greater than 85%) exercise tolerance test 2. Peak exercise ECG demonstrated approximately 1-2 mm horizontal/downsloping ST segment depression in leads I, aVL, and V2 with gradual resolution towards baseline in recovery 3. There were rare PVCs during exercise and recovery; there were rare ventricular couplets during recovery 4. Nuclear images pending Myocardial perfusion imaging study: Technique: The patient was injected with 11 mCi of technetium 99m Cardiolite and subsequently rest SPECT Cardiolite nuclear imaging was obtained in the horizontal long, vertical long, and short axis views. The patient exercised on a Nathan protocol for 7 minutes completing Stage II and 1 minute of Stage III achieving a peak heart rate of 157 bpm (107 % predicted maximal heart rate) with a peak blood pressure 170/80 mmHg and a peak MET capacity of 8 METs. The patient was injected with 33.1 mCi of technetium 99m Cardiolite and subsequently stress SPECT Cardiolite nuclear imaging was obtained in the horizontal long, vertical long, and short axis views. A gated Cardiolite study at peak stress was obtained. Interpretation: Rest and stress SPECT Cardiolite nuclear imaging status post realignment, normalization, and attenuation correction, demonstrates diminished absence of myocardial perfusion/tracer uptake in portions of the basal to mid inferior septal/basal to mid inferior segment which status post stress appears to be somewhat more prominent in the basal to mid inferior segment. There is diminished end systolic thickening and brightening in the aforementioned areas. The gated Cardiolite study demonstrates diminished myocardial thickening and inward wall motion in the aforementioned areas. The reported LVEF is 59 %. Impression: 1. Rest and stress SPECT Cardiolite nuclear imaging demonstrate myocardial perfusion changes appearing compatible with an area of previous myocardial injury/infarction involving portions of the basal to mid inferoseptal/basal to mid inferior segments with post stress myocardial perfusion changes appearing compatible with mild marian-infarct related myocardial ischemia. 2. The gated Cardiolite study reports an LVEF of 59 %. This note was generated with [employer] software. It may contain incorrect words, spelling, and punctuation that were not noted in checking the note before signing.
== END ==
PROVIDERS: Family Provider Internal Medicine; PCP Internal Medicine; Referring Provider Internal Medicine Cardiovascular Disease; Visit Provider Internal Medicine Cardiovascular Disease
DX: I25.10 Atherosclerotic heart disease of native coronary artery without angina pectoris (principal)
CPT/HCPCS: 78452; 93017; A9500; A4216

== ENCOUNTER 2018-10-09 16:30 | Outpatient (RCR) | payer MEDICARE, OTHER, SELFPAY ==
[2018-09-14 14:26] VITALS: BMI 23.8
--- NOTE | 2018-10-02 16:07 | HP.PTEVAL ---
Patient's Visit Information MARSHAL PIERCE is a 73 year old M referred to Physical Therapy by Jeremiah Díaz MD with a diagnosis of L greater trochanteric bursitis. Date of Evaluation: 10/02/18 Physical Therapist: Ignacio Andrade PT, ATC - Visit Plan Frequency: 1x/Week Duration: 2 Weeks Plan: Issue HEP of L hip and core stab ex's. Then follow up in 1 month - Subjective Findings: Pt reports his L hip was really sore this past few weeks. Pt reports he was in the hospital for food poisening when this all started. Pt reports his hips get sore with prolonged ambulation. Pt reports he had xrays taken which revealed no OA. Pt reports his R hip was sore as well, but that has completely healed. Pt reports his L hip is 95 percent recovered. Pt reports the pain is on the lateral aspect of his L hip. Pt reports no clicking, popping, or locking up in L hip. 0/10 pain at rest. 9/10 pain at rest - Pain L hip Pain Intensity (Out of 10): 0 Pain Intensity Range: 9 - Objective Neuro: B LE sensation is WNL to light touch. B Patellar reflex= 2/3. Palpation: Very sore over greater trochanter. No obvious deformity. MMT: B LE 5/5 throughout. ROM: B LE's WNL. Flexibility: Pt is limited in piriformis and IT band flexibility - Goals Goal 1:: I with HEP Goal Time Frame: 1 Week - Rehabilitation Potential Physical Therapy Diagnosis: L hip pain, weakness, and limitations with ambulation secondary to L hip bursitis Rehabilitation Potential: Excellent - Anticipated Interventions Patient/Client Instruction: Educate patient on: Condition, Plan of Care For the Purpose of:: To improve self management Therapeutic Exercise to Include: Strength training, Flexibilty training, Dynamic Lumbar Stabilization For the Purpose of:: To decrease pain, To improve muscle performance and motor function Cryotherapy (ice pack, ice massage): Yes For the Purpose of:: To decrease pain Thank you for the opportunity to evaluate your patient. For Medicare and Medicare HMO plans, please review the plan of care and approve it. It will need to be FAXED BACK to us at [phone] for Medicare purposes. For Medicare only, by signing this I certify the plan of care. Please let me know if there are questions or concerns regarding this plan of care. Physician Signature: Date:
--- NOTE | 2018-11-06 14:07 | HP.PT.NRP ---
HP - Discharge Summary (1) - Patient Information MARSHAL PIERCE was seen in my office for initial evaluation on 10/02/18. The following Plan of Care was established for this patient: Initial Frequency: 1x/Week Initial Duration: 2 Weeks - Anticipated Interventions Patient/Client Instruction: Educate patient on: Condition, Plan of Care For the Purpose of:: To improve self management Therapeutic Exercise to Include: Strength training, Flexibilty training, Dynamic Lumbar Stabilization For the Purpose of:: To decrease pain, To improve muscle performance and motor function Cryotherapy (ice pack, ice massage): Yes For the Purpose of:: To decrease pain This patient was last seen in our office . Pertinent comments regarding their Physical therapy will appear below: Pt was reated for L hip pain for one PT visit on the date of 10/09/18. He was issued a HEP and we discussed following up in one month if pain persisted. Pt phoned the clinic on the date of 11/05/18 to report he was feeling good and wanted to cancel his follow up appt. Pt is therefore discharged at this time. At this point I will be discontinuing this patient from physical therapy. I would be happy to see this patient again in the future if found appropriate by the physician. Thank you! Ignacio Andrade, PT, ATC
== END 2018-10-09 19:00 | disposition home or self-care (01) ==
LOC: PT 16:30
PROVIDERS: Family Provider Internal Medicine; PCP Internal Medicine; Referring Provider Orthopaedic Surgery; Visit Provider Orthopaedic Surgery
DX: M25.551 Pain in right hip (principal); M25.552 Pain in left hip; M70.62 Trochanteric bursitis, left hip
CPT/HCPCS: 97110; 97161

== ENCOUNTER 2018-11-27 09:46 | Day surgery (SDC) | payer MEDICARE, OTHER, SELFPAY ==
[2018-11-14 09:37] VITALS: BMI 23.8
[2018-11-27 10:05] VITALS: BP 150/73; PULSE 70; RESP 16; TEMP 36.2; O2SAT 100; BMI 23.2
[2018-11-27 12:07] VITALS: BP 150/73; BP 96/68; PULSE 84; RESP 16; TEMP 36.5; O2SAT 100
--- NOTE | 2018-11-27 12:09 | OP.ENDO_ITS ---
11/27/2018 Becky Cabral [address] [place] [address] Re : Colonoscopy procedure for Mauro Carrillo Dear Dr. Cabral This procedure was performed on Tuesday, November 27, 2018. My impressions and recommendations are as follows: Impressions : - Hemorrhoids found on perianal exam. - Tortuous colon. - The examination was otherwise normal. - No specimens collected. Recommendations : - Discharge patient to home. - Resume previous diet. - Continue present medications. - Repeat colonoscopy in 10 years for screening purposes. I would anticipate that due to the difficulty of this exam that no further procedures will be required. My findings are described in the full procedure note, which is enclosed. If I can be of further assistance, please feel free to contact me at Doctor phone number(s): Work: . Sincerely, Josue Patrick MD 11/27/2018 12:09:32 PM This report has been signed electronically.
[2018-11-27 12:10] VITALS: BP 100/66; BP 150/73; PULSE 83; RESP 16; O2SAT 100
[2018-11-27 12:15] VITALS: BP 107/72; BP 150/73; PULSE 83; RESP 16; O2SAT 100
[2018-11-27 12:21] VITALS: BP 105/77; BP 150/73; PULSE 81; RESP 16; TEMP 36.5; O2SAT 99
[2018-11-27 13:05] VITALS: BP 150/73
== END 2018-11-27 13:05 | disposition home or self-care (01) ==
LOC: EN 09:47 → AC 09:48
PROVIDERS: Family Provider Internal Medicine; PCP Internal Medicine; Referring Provider Internal Medicine; Visit Provider Surgery
PROC: 0DJD8ZZ Inspection of Lower Intestinal Tract, Via Natural or Artificial Opening Endoscopic (ICD-10-PCS; CPT 45378; principal; 2018-11-27 10:55)
DX: Z12.11 Encounter for screening for malignant neoplasm of colon (principal); K64.9 Unspecified hemorrhoids; D50.9 Iron deficiency anemia, unspecified; Q43.8 Other specified congenital malformations of intestine; I25.10 Atherosclerotic heart disease of native coronary artery without angina pectoris; I10 Essential (primary) hypertension; I47.2 Ventricular tachycardia; I47.1 Supraventricular tachycardia; I25.2 Old myocardial infarction; E78.5 Hyperlipidemia, unspecified; K21.9 Gastro-esophageal reflux disease without esophagitis; Z85.828 Personal history of other malignant neoplasm of skin; Z95.1 Presence of aortocoronary bypass graft; Z95.5 Presence of coronary angioplasty implant and graft; Z79.82 Long term (current) use of aspirin; Z79.899 Other long term (current) drug therapy; Z87.891 Personal history of nicotine dependence
CPT/HCPCS: G0121; J7120; J2405

== ENCOUNTER → 2019-06-12 09:56 | Outpatient (CLI) | payer MEDICARE, OTHER, SELFPAY ==
[2019-03-04 13:08] VITALS: BMI 24.3
[2019-06-12 11:03] LABS: AST(SGOT) 21 U/L (15-37); Alanine Aminotransfer ALT/SGPT 21 U/L (16-61); Albumin, Serum 3.5 g/dL (3.2-5.0); Alkaline Phosphatase 66 U/L (45-117); Bilirubin, Direct 0.22 mg/dL (0.00-0.30); Cholesterol 144 mg/dL (200); Globulin 3.3 g/dL (2.2-4.2); High Density Lipoprotein 49 mg/dL; Protein, Total 6.8 g/dL (6.4-8.2); Triglycerides 138 mg/dL; Very Low Density Lipoprotein 28 mg/dL (5-40)
== END ==
PROVIDERS: Physician Assistant Medical; Family Provider Internal Medicine; PCP Internal Medicine; Referring Provider Internal Medicine Cardiovascular Disease; Visit Provider Internal Medicine Cardiovascular Disease
DX: I25.10 Atherosclerotic heart disease of native coronary artery without angina pectoris (principal); E78.5 Hyperlipidemia, unspecified
CPT/HCPCS: 36415; 80061; 80076

== ENCOUNTER 2020-10-20 17:33 | Outpatient (RCR) | payer MEDICARE, OTHER, SELFPAY ==
[2020-06-22 13:03] VITALS: BMI 23.0
[2020-10-20] MEDS: COVID-19 VACC, MRNA(PFIZER)/PF 30 MCG/0.3 ML SYRINGE IM (16:36)
[2020-11-10] MEDS: COVID-19 VACC, MRNA(PFIZER)/PF 30 MCG/0.3 ML SYRINGE IM (16:31)
== END 2021-01-19 23:59 ==
LOC: IMMUN 17:33
PROVIDERS: PCP Internal Medicine; Visit Provider Family Medicine
DX: Z23 Encounter for immunization (principal)
CPT/HCPCS: 0001A; 0002A; 91300

== ENCOUNTER → 2021-01-06 08:14 | Outpatient (CLI) | payer MEDICARE, OTHER, SELFPAY ==
[2020-06-22 13:03] VITALS: BMI 23.0
[2021-01-06 09:58] LABS: AST(SGOT) 28 U/L (15-37); Alanine Aminotransfer ALT/SGPT 26 U/L (16-61); Albumin, Serum 3.3 g/dL (3.2-5.0); Alkaline Phosphatase 60 U/L (45-117); Bilirubin, Direct 0.22 mg/dL (0.00-0.30); Cholesterol 149 mg/dL (200); Globulin 3.2 g/dL (2.2-4.2); High Density Lipoprotein 55 mg/dL; Protein, Total 6.5 g/dL (6.4-8.2); Triglycerides 102 mg/dL; Very Low Density Lipoprotein 20 mg/dL (5-40)
== END ==
PROVIDERS: PCP Internal Medicine; Referring Provider Nurse Practitioner Family; Visit Provider Nurse Practitioner Family
DX: I25.10 Atherosclerotic heart disease of native coronary artery without angina pectoris (principal); E78.00 Pure hypercholesterolemia, unspecified
CPT/HCPCS: 36415; 80061; 80076

== ENCOUNTER 2021-10-26 06:26 | Outpatient (CLI) | payer MEDICARE, OTHER, SELFPAY ==
[2021-10-26 10:05] LABS: AST(SGOT) 23 U/L (15-37); Alanine Aminotransfer ALT/SGPT 20 U/L (16-61); Albumin, Serum 3.3 g/dL (3.2-5.0); Alkaline Phosphatase 64 U/L (45-117); Cholesterol 143 mg/dL (200); Globulin 3.4 g/dL (2.2-4.2); High Density Lipoprotein 51 mg/dL; Protein, Total 6.7 g/dL (6.4-8.2); Triglycerides 91 mg/dL; Very Low Density Lipoprotein 18 mg/dL (5-40)
--- NOTE | 2021-10-26 13:48 | STRESSREP_ITS ---
Stress Test Report Date: 10-26-2021 Procedure: Exercise tolerance test/imaging study Indications: CAD, PCI, CABG, cardiac dysrhythmia, abnormal ECG/right bundle b ranch block Consent: Per the patient Procedure: The patient exercised on a Nathan protocol for 7 minutes completing Stage II and 1 minute of Stage III achieving a peak heart rate of 151 bpm (106% predicted maximal heart rate) with a peak blood pressure 184/70 mmHg and a peak MET capacity of 10 METs. The baseline ECG demonstrated sinus rhythm; right bundle branch block. The peak exercise ECG demonstrated continued right bundle branch block pattern. There was an occasional PVC and a rare ventricular couplet and an isolated ventricular quadruplet during exercise and an occasional PVC and an isolated ventricular couplet during recovery. The functional capacity was considered good. There was no complaint of chest discomfort during exercise or recovery. The examination was discontinued secondary to dyspnea. Impression: 1. Technically adequate (percent predicted maximal heart rate greater than 85%) exercise tolerance test 2. Peak exercise ECG with continued right bundle branch block pattern 3. There was an occasional PVC and a rare ventricular couplet and an isolated ventricular quadruplet during exercise and an occasional PVC and an isolated ventricular couplet during recovery 4. Nuclear images pending Myocardial perfusion imaging study: Technique: The patient was injected with 11.7 mCi of technetium 99m Cardiolite and subsequently rest SPECT Cardiolite nuclear imaging was obtained in the horizontal long, vertical long, and short axis views. The patient exercised on a Nathan protocol for 7 minutes completing Stage II and 1 minute of Stage III achieving a peak heart rate of 151 bpm (106% predicted maximal heart rate) with a peak blood pressure 184/70 mmHg and a peak MET capacity of 10 METs. The patient was injected with 34.8 mCi of technetium 99m Cardiolite and subsequently stress SPECT Cardiolite nuclear imaging was obtained in the horizontal long, vertical long, and short axis views. A gated Cardiolite study at peak stress was obtained. Interpretation: Rest and stress SPECT Cardiolite nuclear imaging status post realignment, normalization, and attenuation correction, demonstrates diminished myocardial perfusion/tracer uptake in portions of the basal inferoseptal/basal inferior segment extending toward the mid inferior segments and status post stress appearing to be somewhat more prominent in the area of the basal inferoseptal/inferior segments. There is diminished end-systolic thickening and brightening in the aforementioned area. The gated Cardiolite study demonstrates myocardial thickening and inward wall motion. The reported LVEF is 60%. Impression: 1. Rest and stress SPECT Cardiolite nuclear imaging demonstrate myocardial perfusion changes appearing compatible with an area of previous myocardial injury/infarction involving portions of the basal inferoseptal and basal inferior segments with post-rest myocardial perfusion image appearing compatible with an element of mild marian-infarct related myocardial ischemia involving portions of the basal inferior septal/inferior segments. 2. The gated Cardiolite study reports an LVEF of 60%. This note was generated with [employer] software. It may contain incorrect words, spelling, and punctuation that were not noted in checking the note before signing.
== END 2021-10-26 23:59 | disposition home or self-care (01) ==
PROVIDERS: PCP Internal Medicine; Referring Provider Internal Medicine Cardiovascular Disease; Visit Provider Internal Medicine Cardiovascular Disease
DX: E78.00 Pure hypercholesterolemia, unspecified (principal); Z79.899 Other long term (current) drug therapy; Z95.1 Presence of aortocoronary bypass graft; I25.10 Atherosclerotic heart disease of native coronary artery without angina pectoris
CPT/HCPCS: 36415; 78452; 80061; 80076; 93017; A9500; A4216

== ENCOUNTER 2023-09-05 09:07 | Emergency (ER) | payer MEDICARE, OTHER, SELFPAY ==
[2023-09-05 09:09] VITALS: BP 133/69; PULSE 68; RESP 14; TEMP 36.6; O2SAT 93; BMI 24.5
[2023-09-05 09:35] VITALS: PULSE 68; RESP 14; O2SAT 97; O2SAT 98
--- NOTE | 2023-09-05 09:40 | CT_ITS ---
STUDY: CT BRAIN WITHOUT CONTRAST REASON FOR EXAM: Male, 78 years old. Head injury on Plavix RADIATION DOSAGE (If Supplied By Facility): CTDIvol = ( 44.99 ) mGy, DLP = ( 812.98 ) mGycm TECHNIQUE: Transaxial CT imaging of the brain was performed without administration of intravenous contrast material. Individualized dose optimization techniques were used for this CT. COMPARISON: No relevant priors. FINDINGS: Normal soft tissue structures. Normal calvarium. There is mild cerebral atrophy with widening of the extra-axial spaces and ventricular dilatation. There are areas of decreased attenuation within the white matter tracts of the supratentorial brain, consistent with microvascular disease changes. Normal basal ganglia and thalami. Normal brainstem. Normal cerebellum. There is no intracranial hemorrhage. There are no findings of an acute ischemic infarction. Atherosclerotic plaque formation of the vertebral arteries and cavernous portions of the internal carotid arteries bilaterally. Normal visualized paranasal sinuses. CT/Brain/Head without Contrast IMPRESSION: Chronic involutional changes of the brain. Electronically Signed: Tanvir Coughlin MD at 10:39 EST ,
--- NOTE | 2023-09-05 09:40 | RAD_ITS ---
STUDY: X-RAY - LEFT WRIST REASON FOR EXAM: Male, 78 years old. Pain following a fall. TECHNIQUE: 3 view(s) of the wrist were obtained. COMPARISON: None. FINDINGS: There is a nondisplaced fracture through the lateral aspect of the distal radius extending to the articular surface. Nondisplaced avulsion fracture of the ulnar styloid. Normal radiocarpal articulation. Normal distal radioulnar articulation. Normal carpal bones. Normal carpal articulations. Normal carpometacarpal articulation of the thumb. Normal second through fifth carpometacarpal articulations. Normal visualized metacarpal bones. Soft tissue swelling. RAD/Wrist min 3 Views IMPRESSION: Nondisplaced fracture of the distal radius with extension to the articular surface. Wall fracture of the ulnar styloid. Soft tissue swelling. Electronically Signed: Tanvir Coughlin MD at 10:38 EST ,
--- NOTE | 2023-09-05 09:41 | ED.VIS.FALL ---
HPI HPI - Fall History of Present Illness Chief Complaint: Head Injury Informant: patient Narrative Narrative: 78-year-old male was attempting to cross the street today when he slipped on the ice falling backwards and striking his head on the ground. States he first landed on his buttocks and then went Backwards. He does remember striking his head. No loss of consciousness. He denies any headache. Patient states that he also somehow injured the left wrist and notes swelling and pain over the dorsum. He states that he takes Plavix for coronary artery disease. No nausea or vomiting. He denies any back or neck pain. [facility] Medical History Atherosclerotic heart disease of [place] coronary artery without angina pectoris COVID-19 Diaphoresis Encounter for long-term current use of high risk medication Encounter for screening for COVID-19 Essential hypertension Hematemesis HLD (hyperlipidemia) Lightheaded Old myocardial infarction Paroxysmal ventricular tachycardia Premature atrial contractions Premature ventricular contraction Presence of stent in coronary artery (~12/03/14) Pure hypercholesterolemia Screening for intestinal cancer Supraventricular tachycardia Home Medications coenzyme Q10 100 mg capsule 100 mg PO DAILY 11/23/17 [History Last Taken Unknown] flaxseed oil 1,000 mg capsule 1,000 mg PO DAILY 11/27/17 [History Last Taken Unknown] lutein 6 mg capsule 6 mg PO DAILY 11/27/17 [History Last Taken Unknown] atorvastatin 80 mg tablet 80 mg PO QHS #90 tabs 08/29/22 [Rx Last Taken Unknown] clopidogrel 75 mg tablet 75 mg PO DAILY #90 tabs 08/29/22 [Rx Last Taken Unknown] ezetimibe 10 mg tablet 10 mg PO DAILY #90 tabs 08/29/22 [Rx Last Taken Unknown] metoprolol succinate 25 mg tablet,extended release 24 hr 25 mg PO QHS #90 tabs 08/29/22 [Rx Last Taken Unknown] pantoprazole 20 mg tablet,delayed release 20 mg PO DAILY 10/13/22 [History Last Taken Unknown] nitroglycerin 0.4 mg sublingual tablet (Nitrostat) 0.4 mg sublingual Q5-15M PRN Chest pain #25 tabs 04/18/23 [Rx Last Taken Unknown] Allergy/AdvReac Type Severity Reaction Status Date / Time No Known Allergies Allergy Verified 09/05/23 09:08 Family History Father CAD (coronary artery disease) Mother CAD (coronary artery disease) Myocardial infarction Sister Diabetes Arthritis Surgical History Aortocoronary bypass status (~07/1986) Cataract extraction status, right eye History of local excision of skin lesion History of Mohs micrographic surgery for skin cancer Postsurgical percutaneous transluminal coronary angioplasty (PTCA) status Presence of coronary angioplasty implant and graft (~12/03/14) Social History Smoking Status: Former smoker alcohol intake: never substance use type: does not use caffeine: Yes Type: carbonated beverages what type of physical activity do you participate in: walking frequency: 5-6 times per week duration: 45-60 minutes/day seatbelt use: always do you feel safe at home: Yes ROS ROS ED Constitutional Constitutional ED: Denies chills, fever(s) or weight loss Eyes Eyes: Denies change in vision or diplopia ENT ENT ED: Denies ear pain, rhinorrhea or sore throat Cardiovascular Cardiovascular: Denies chest pain, orthopnea, palpitations or racing heartbeat Respiratory/Chest Respiratory/Chest: Denies cough, dyspnea or orthopnea Gastrointestinal Gastrointestinal: Denies abdominal pain, diarrhea, nausea or vomiting Genitourinary Genitourinary ED: Denies dysuria, hematuria or urinary frequency Musculoskeletal Musculoskeletal: Reports other Details: Left wrist pain ; Denies arthralgias, back pain, myalgias or neck pain Integumentary Denies abscess or rash Neurologic Neurologic: Denies headache(s) or weakness Psychiatric Psychiatric: Denies anxiety, depression, suicidal ideation or suicidal thoughts Endocrine Endocrinology: Denies polydipsia, polyphagia or polyuria Allergic/Immunologic Allergic/Immunologic ED: Denies mouth swelling, tongue swelling or urticaria EXAM Physical Exam Const Vital Signs: 09/05/23 09:09 09/05/23 09:35 09/05/23 09:35 Temperature 97.9 F Temperature Source Temporal Pulse Rate 68 68 Respiratory Rate 14 14 Respiratory Effort Normal Non-Labored Blood Pressure 133/69 H Blood Pressure Mean 90 Pulse Ox 93 98 97 Oxygen Delivery Method Room Air Room Air Room Air Positive well nourished and well developed General Appearance ED: well developed HEENT Reports normocephalic and moist mucous membranes HEENT Narrative: There is a small area of soft hematoma in the right posterior occipital parietal region. No palpable bony depression. No tenderness to palpation. Eyes PERRL and EOMs intact bilaterally Neck no lymphadenopathy, supple and no JVD Resp normal respiratory effort and clear to auscultation bilaterally Cardio regular rate, regular rhythm and no murmurs GI normal to inspection, nondistended, normoactive bowel sounds and non-tender Palpation: soft Back/Spine no CVA tenderness and normal ROM Extremity normal to inspection General Extremety ED: Negative for edema General Extremity: Negative for edema Neuro oriented x3 and CN's II-XII intact bilaterally Sensorium / Orientation: alert Motor Exam: strength 5/5 throughout Psych mental status grossly normal Mood & Affect: Negative for depressed or tearful Skin no rashes or lesions noted and no wounds MDM MDM MDM Narrative Medical decision making narrative: My independent interpretation of the plain films of the left wrist is a nondisplaced distal radius fracture. Patient was placed in a AP plaster splint made by this physician. Neurovascular intact pre and post application. He will be referred to on-call orthopedics. CT of the brain was obtained and is negative for hemorrhage or fracture. Patient will be discharged home instructions for follow-up. Radiography Diagnostic Testing: Clinical Impression(s) from Imaging Studies Brain CT 09/05/23 09:40 IMPRESSION: Chronic involutional changes of the brain. Electronically Signed: Tanvir Coughlin MD at 10:39 EST , Wrist X-Ray 09/05/23 09:40 IMPRESSION: Nondisplaced fracture of the distal radius with extension to the articular surface. Wall fracture of the ulnar styloid. Soft tissue swelling. Electronically Signed: Tanvir Coughlin MD at 10:38 EST , Discharge Plan Triage Chief Complaint: Head Injury Other Complaint: Fall ED Provider: Demarcus Greene Dx/Rx/DC Orders Clinical Impression: Head injury, Fall, Closed fracture of left distal radius Instructions: Distal Radius Fx, ED Head Injury (Adult) Prescriptions: No Action lutein 6 mg capsule 6 mg PO DAILY flaxseed oil 1,000 mg capsule 1,000 mg PO DAILY coenzyme Q10 100 mg capsule 100 mg PO DAILY pantoprazole 20 mg tablet,delayed release (DR/EC) 20 mg PO DAILY nitroglycerin [Nitrostat] 0.4 mg tablet, sublingual 0.4 mg SUBLINGUAL Q5-15M PRN (Reason: Chest pain) Qty: 25 3RF clopidogrel 75 mg tablet 75 mg PO DAILY Qty: 90 4RF ezetimibe 10 mg tablet 10 mg PO DAILY Qty: 90 4RF atorvastatin 80 mg tablet 80 mg PO QHS Qty: 90 4RF metoprolol succinate 25 mg tablet extended release 24 hr 25 mg PO QHS Qty: 90 4RF Primary Care Provider: Becky Cabral Referrals: Jonathan Marsh MD [Med Staff - Active Staff] - As soon as possible Becky Cabral MD [Primary Care Provider] - 1 Week Disposition Disposition: Home, Self Care
--- OUTSIDE RECORDS SUMMARY | 2023-09-05 10:56 | XMS RPT_ITS | CCD ---
Author Name Unknown Address [id number] [place] [address] Organization [facility] Care Team Providers Care Accounts Adjustable Clerk Name Role Phone Lev Latif MD Unavailable Landen Ruiz Unavailable Unavailable MEGHNA MCLAUGHLIN Unavailable Unavailable MEGHNA MCLAUGHLIN Unavailable Unavailable Rosalia Pittman Unavailable Unavailable Rosalia Pittman Unavailable Unavailable Amilcar Cabral MD Primary Care Provider Lev Latif Unavailable Branden Sinha MD Unavailable Amilcar Cabral MD Primary Care Provider eLv Latif Unavailable Branden Sinha MD Unavailable [phone] Amilcar Cabral MD Primary Care Provider Lev Latif Unavailable Branden Sinha MD Unavailable Lev Latif Unavailable Branden Sinha MD Unavailable Lev Latif MD Unavailable BRANDEN SINHA Attending Unavailable RONI, AMILCAR [place] Primary Care Unavailable MATIASAMPAS, AMILCAR D Primary Care Unavailable BRENDA SANTIZO Attending Unavailable MATIASAMPCAL, AMILCAR D Primary Care Unavailable TALAMPAS, AMILCAR D Referring Unavailable RONI, AMILCAR D Primary Care Unavailable BRANDEN SINHA Referring Unavailable RNOI, AMILCAR [place] Primary Care Unavailable BRANDEN SINHA Referring Unavailable MATIASAMPCAL, AMILCAR [place] Primary Care Unavailable MATIASAMPAS, AMILCAR D Referring Unavailable SANTIZOBRENDA Nuno Referring Unavailable AMILCAR CABRAL Primary Care Unavailable AMILCAR CABRAL Attending Unavailable Medications Current Medications Medication Drug Class(es) Dates Sig (Normalized) Sig (Original) carbamide peroxide 65 mg/ml otic solution (1 source) Start: 05-03-2022 End: 05-08-2022 carbamide peroxide (DEBROX) 6.5 % otic solution Use 5 Drops in both ears twice daily for 5 days. 15 mL 0 05/03/2022 05/08/2022 Active Completed/Discontinued Medications Medication Drug Class(es) Dates Sig (Normalized) Sig (Original) aspirin 81 mg oral tablet (13 sources) Nonsteroidal Anti-inflammatory Drug Start: 02-15-2011 take 1 tablet by mouth once daily ASPIRIN 81 MG TABS One tablet by mouth daily ASPIRIN [id number] Ira Cowan Problems Active Problems Problem Classification Problem Date Documented Date Episodic/Chronic Cardiac dysrhythmias (20 sources) Supraventricular tachycardia; Translations: [Ventricular tachycardia] Onset: 07-30-2007 02-15-2011 Chronic Coagulation and hemorrhagic disorders (14 sources) Chronic idiopathic thrombocytopenic purpura; Translations: [Immune thrombocytopenic purpura] Onset: 02-23-2018 02-23-2018 Chronic Complication of device; implant or graft (5 sources) Arteriosclerosis of coronary artery bypass graft; Translations: [Atherosclerosis of coronary artery bypass graft(s) without angina pectoris] Onset: 02-15-2011 02-15-2011 Chronic Coronary atherosclerosis and other heart disease (20 sources) Acute ischemic heart disease; Translations: [Acute ischemic heart disease, unspecified] Onset: 07-30-2007 Chronic Disorders of lipid metabolism (20 sources) Hyperlipidemia; Translations: [Hyperlipidemia, unspecified] Onset: 03-22-2005 02-15-2011 Chronic Essential hypertension (15 sources) Essential hypertension; Translations: [Essential (primary) hypertension] Onset: 11-06-2008 05-19-2017 Chronic Gastroduodenal ulcer (except hemorrhage) (14 sources) Peptic ulcer; Translations: [Peptic ulcer, site unspecified, unspecified as acute or chronic, without hemorrhage or perforation] Onset: 05-29-2018 05-29-2018 Chronic Other aftercare (4 sources) Other assisted (current) drug therapy; Translations: [Other equipment operator intermodal 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 therapy] Onset: 02-15-2011 02-15-2011 Episodic Other aftercare (1 source) Patient encounter status; Translations: [correction (current) use of insulin] Onset: 12-06-2022 12-06-2022 Episodic Residual codes; unclassified (2 sources) Family history of aneurysm of abdominal aorta; Translations: [Family history of ischemic heart disease and other diseases of the circulatory system] Episodic Residual codes; unclassified (1 source) FH: Aortic aneurysm; Translations: [Family history of ischemic heart disease and other diseases of the circulatory system] Episodic Residual codes; unclassified (1 source) Family history of ischemic heart disease and other diseases of the circulatory system; Translations: [Family history of aortic aneurysm] Onset: 06-12-2023 Episodic Unclassified (2 sources) Long-term drug therapy; Translations: [Other equipment operator intermodal 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 therapy] Onset: 02-15-2011 02-15-2011 Past or Other Problems Problem Classification Problem Date Documented Da te Episodic/Chronic Coronary atherosclerosis and other heart disease (14 sources) Presence of aortocoronary bypass graft; Translations: [Coronary angioplasty status] Onset: 02-15-2011 02-15-2011 Episodic Immunizations and screening for infectious disease (5 sources) Viral screening status; Translations: [Encounter for screening for other viral diseases] Onset: 12-06-2022 Episodic Other circulatory disease (6 sources) History of myocardial infarction; Translations: [Abnormal result of cardiovascular function study, unspecified] Onset: 02-15-2011 02-15-2011 Episodic Other connective tissue disease (11 sources) Enthesopathy of ankle AND/OR tarsus; Translations: [Other enthesopathy of unspecified foot and ankle] Onset: 03-22-2005 03-22-2005 Episodic Other lower respiratory disease (5 sources) Dyspnea; Translations: [Shortness of breath] Onset: 10-20-2014 10-20-2014 Episodic Other non-epithelial cancer of skin (20 sources) Basal cell carcinoma of skin of left eyelid, including canthus; Translations: [Basal cell carcinoma of skin] Onset: 02-23-2018 02-23-2018 Episodic Other nutritional; endocrine; and metabolic disorders (8 sources) Body mass index (BMI) 25.0-25.9, adult; Translations: [Body mass index (BMI) 26.0-26.9, adult] Onset: 05-27-2013 05-19-2014 Episodic Other nutritional; endocrine; and metabolic disorders (2 sources) Body mass index (BMI) 26.0-26.9, adult; Translations: [Body mass index (BMI) 26.0-26.9, adult] Onset: 05-27-2013 05-27-2013 Episodic Other screening for suspected conditions (not mental disorders or infectious disease) (2 sources) Abnormal result of cardiovascular function study, unspecified; Translations: [Abnormal result of cardiovascular function study, unspecified] Onset: 11-06-2014 11-06-2014 Episodic Results Test Name Value Interpretation Reference Range Facil ity Vital Signs Date Time Vital Sign Value Performing Clinician Radha dunn 12-06-2022 13:48-0400 Body weight 79.38 kg Brenda Santizo APRN.SUBSTATION DESIGNER Work Phone: [facility] 12-06-2022 13:48-0400 Diastolic blood pressure 70 mm[Hg] Brenda Santizo EXTRACTIONS TECHNICIAN.SUBSTATION DESIGNER Work Phone: [facility] 12-06-2022 13:48-0400 Heart rate 62 /min Brenda Santizo EXTRACTIONS TECHNICIAN.SUBSTATION DESIGNER Work Phone: [facility] 12-06-2022 13:48-0400 Respiratory rate 16 /min Brenda Santizo EXTRACTIONS TECHNICIAN.SUBSTATION DESIGNER Work Phone: [facility] 12-06-2022 13:48-0400 SaO2% (BldA) [Mass fraction] 97 % Brenda Santizo EXTRACTIONS TECHNICIAN.SUBSTATION DESIGNER Work Phone: [facility] 12-06-2022 13:48-0400 Systolic blood pressure 124 mm[Hg] Brenda Santizo EXTRACTIONS TECHNICIAN.SUBSTATION DESIGNER Work Phone: [facility] 06-13-2022 10:56-0400 Body height 182.9 cm Branden Sinha MD Work Phone: [facility] 06-13-2022 10:56-0400 Body weight 76.93 kg Branden Sinha MD Work Phone: [facility] 06-13-2022 10:56-0400 Diastolic blood pressure 74 mm[Hg] Branden Sinha MD Work Phone: [facility] 06-13-2022 10:56-0400 Heart rate 72 /min Branden Sinha MD Work Phone: [facility] 06-13-2022 10:56-0400 SaO2% (BldA) [Mass fraction] 98 % Branden Sinha MD Work Phone: [facility] 06-13-2022 10:56-0400 Systolic blood pressure 121 mm[Hg] Branden Sinha MD Work Phone: [facility] 05-03-2022 13:46-0400 Body height 182.9 cm Brenda Santizo EXTRACTIONS TECHNICIAN.SUBSTATION DESIGNER Work Phone: [facility] 05-03-2022 13:46-0400 Body weight 76.66 kg Brenda Santizo EXTRACTIONS TECHNICIAN.SUBSTATION DESIGNER Work Phone: [facility] 05-03-2022 13:46-0400 Diastolic blood pressure 80 mm[Hg] Brenda Santizo EXTRACTIONS TECHNICIAN.SUBSTATION DESIGNER Work Phone: [facility] 05-03-2022 13:46-0400 Heart rate 73 /min Brenda Santizo EXTRACTIONS TECHNICIAN.SUBSTATION DESIGNER Work Phone: [facility] 05-03-2022 13:46-0400 Respiratory rate 16 /min Brenda Santizo EXTRACTIONS TECHNICIAN.SUBSTATION DESIGNER Work Phone: [facility] 05-03-2022 13:46-0400 SaO2% (BldA) [Mass fraction] 98 % Brenda Santizo EXTRACTIONS TECHNICIAN.SUBSTATION DESIGNER Work Phone: [facility] 05-03-2022 13:46-0400 Systolic blood pressure 118 mm[Hg] Brenda Santizo EXTRACTIONS TECHNICIAN.SUBSTATION DESIGNER Work Phone: [facility] 05-01-2017 13:34-0400 BMI (Body Mass Index) 26.04 kg/m2 [facility] Work Phone: 05-01-2017 13:34-0400 BP Diastolic 62 mm[Hg] [facility] Work Phone: 05-01-2017 13:34-0400 BP Systolic 112 mm[Hg] [facility] Work Phone: 05-01-2017 13:34-0400 Height 182.88 cm [facility] Work Phone: 05-01-2017 13:34-0400 Pulse (Heart Rate) 64 /min [facility] Work Phone: 05-01-2017 13:34-0400 Respiratory Rate 16 /min [facility] Work Phone: 05-01-2017 13:34-0400 Weight 87.09 kg [facility] Work Phone: 11-07-2016 13:06-0400 BMI (Body Mass Index) 26.04 kg/m2 Lev Latif MD [facility] Work Phone: 11-07-2016 13:06-0400 BP Diastolic 72 mm[Hg] Lev Latif MD [facility] Work Phone: 11-07-2016 13:06-0400 BP Systolic 140 mm[Hg] Lev Latif MD [facility] Work Phone: 11-07-2016 13:06-0400 Pulse (Heart Rate) 68 /min [facility] Work Phone: 11-07-2016 13:06-0400 Respiratory Rate 16 /min Lev [facility] Work Phone: 11-07-2016 13:06-0400 Weight 87.09 kg Lev [facility] Work Phone: 04-25-2016 13:25-0400 BSA (Body Surface Area) 2.08 m2 Lev Latif MD [facility] Work Phone: 10-20-2014 13:10-0400 Heart rate 70 /min [facility] Work Phone: 05-14-2012 13:27-0400 Heart rate 443 ms [facility] Work Phone: 11-07-2011 13:49-0400 Height 182.88 cm Lev Latif MD [facility] Work Phone: Encounters Encounter Date Encounter Type Care Provider Facility Start: 07-11-2023 End: 07-11-2023 ambulatory AMILCAR CABRAL Facility:[facility] Start: 07-11-2023 End: 07-11-2023 Subsequent hospital visit by physician [facility] Procedures Date Procedure Procedure Detail Performing Clinician Start: 07-11-2023 Myocrd 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 std rst&strs cncrnt ct Branden Sinha MD Work Phone: Start: 06-20-2022 Us abdominal aorta r eal time screen study aaa Brenda Santizo EXTRACTIONS TECHNICIAN.SUBSTATION DESIGNER Work Phone: Start: 05-03-2022 INFLUENZA SEASONAL QUADRIVALENT HIGH DOSE AGE 65+ Brenda Santizo EXTRACTIONS TECHNICIAN.SUBSTATION DESIGNER Work Phone: Start: 05-03-2022 [id number] [employer] Only COVI D-19 BIVALENT BOOSTER VACCINE, AGE 12+ YR Brenda Santizo EXTRACTIONS TECHNICIAN.SUBSTATION DESIGNER Work Phone: Start: 05-03-2022 Adult depression screening assessment Brenda Santizo EXTRACTIONS TECHNICIAN.SUBSTATION DESIGNER Work Phone: Start: 01-13-2021 Adult depression screening assessment Branden Sinha MD Work Phone: Start: 05-01-2017 End: 05-01-2017 Follow Up Appt 6 months Lev Latif MD Start: 05-01-2017 End: 05-09-2017 Nuclear stress test -exercise Lev Latif MD Start: 05-01-2017 End: 05-01-2017 PFM Lev Latif MD Start: 05-01-2017 End: 05-01-2017 Dietary management education, guidance, and counseling Rosalia Toya Start: 05-01-2017 End: 05-01-2017 Follow Up Appt 6 months Lev Latif MD Start: 05-01-2017 End: 05-09-2017 Nuclear stress test -exercise Lev Latif MD Start: 05-01-2017 End: 05-01-2017 PFM Lev Latif MD Start: 04-24-2017 End: 04-24-2017 *Hepatic Function Panel Lev Latif MD Start: 04-24-2017 End: 04-24-2017 Lipid 1996 panel - Serum or Plasma Lev Latif MD Start: 04-24-2017 End: 04-24-2017 *Hepatic Function Panel Lev Latif MD Start: 04-24-2017 End: 04-24-2017 Lipid panel [AGGREGATE] Lev Latif MD Start: 11-07-2016 End: 11-07-2016 Follow Up Appt 6 months Lev Latif MD Start: 11-07-2016 End: 11-07-2016 MMM Lev Latif MD Start: 11-07-2016 End: 11-07-2016 Follow Up Appt 6 months Lev Latif MD Start: 11-07-2016 End: 11-07-2016 MMM Lev Latif MD Start: 04-25-2016 End: 04-25-2016 Follow Up Appt 6 months Lev Latif MD Start: 04-25-2016 End: 04-25-2016 PFM Lev Latif MD Start: 04-25-2016 End: 04-25-2016 Follow Up Appt 6 months Lev Latif MD Start: 04-25-2016 End: 04-25-2016 PFM Lev Latif MD Start: 04-21-2016 End: 04-27-2016 *Hepatic Function Panel Lev Latif MD Start: 04-21-2016 End: 04-27-2016 Lipid 1996 panel - Serum or Plasma Lev Latif MD Start: 04-21-2016 End: 04-27-2016 *Hepatic Function Panel Lev Latif MD Start: 04-21-2016 End: 04-27-2016 Lipid panel [AGGREGATE] Lev Latif MD Start: 11-09-2015 End: 11-10-2015 Follow Up Appt 6 months Lev Latif MD Start: 11-09-2015 End: 11-10-2015 PFM Lev Latif MD Start: 11-09-2015 End: 11-10-2015 Follow Up Appt 6 months Lev Latif MD Start: 11-09-2015 End: 11-10-2015 PFM Lev Latif MD Start: 10-13-2015 End: 10-27-2015 *Hepatic Function Panel Lev Latif MD Start: 10-13-2015 End: 10-27-2015 Lipid 1996 panel - Serum or Plasma eLv Latif MD Start: 10-13-2015 End: 10-27-2015 *Hepatic Function Panel Lev Latif MD Start: 10-13-2015 End: 10-27-2015 Lipid panel [AGGREGATE] Lev Latif MD Start: 04-27-2015 End: 04-27-2015 Follow Up Appt 6 months Lev Latif MD Start: 04-27-2015 End: 04-27-2015 PFM Lev Latif MD Start: 04-27-2015 End: 04-27-2015 Follow Up Appt 6 months Lev Latif MD Start: 04-27-2015 End: 04-27-2015 PFM Lev Latif MD Start: 12-02-2014 History of coronary artery bypass grafting S/P CABG (coronary artery bypass graft) Branden Sinha MD Work Phone: Start: 12-02-2014 History of placement of stent for coronary artery disease S/P drug eluting coronary stent placement Branden Sinha MD Work Phone: Start: 11-06-2014 End: 04-16-2015 Cardiac Referral Lev Latif MD Start: 11-06-2014 End: 04-16-2015 Cardiac Referral Lev Latif MD Start: 10-20-2014 End: 10-21-2014 Documentation of current medications Nurys Whitehead PA-C Work Phone: Start: 10-20-2014 End: 10-20-2014 Ecg routine ecg w/least 12 lds w/i&r Nurys Whitehead PA-C Work Phone: Start: 10-20-2014 End: 10-20-2014 PFM Nurys Whitehead PA-C Work Phone: Start: 10-20-2014 End: 10-21-2014 Documentation of current medications Nurys Whitehead PA-C Work Phone: Start: 10-20-2014 End: 10-20-2014 Electrocardiogram, complete Nurys Whitehead PA-C Work Phone: Start: 10-20-2014 End: 10-20-2014 Follow Up Appt 6 months Nurys sánchez PA-C Work Phone: Start: 10-20-2014 End: 10-20-2014 PFM Nurys Whitehead PA-C Work Phone: Start: 05-19-2014 End: 10-20-2014 *Hepatic Function Panel Lev Latif MD Start: 05-19-2014 End: 10-08-2014 Follow Up Appt 6 months Lev Latif MD Start: 05-19-2014 End: 10-20-2014 Lipid 1996 panel - Serum or Plasma Lev Latif MD Start: 05-19-2014 End: 10-08-2014 PFM Lev Latif MD Start: 05-19-2014 End: 10-20-2014 *Hepatic Function Panel Lev Latif MD Start: 05-19-2014 End: 10-08-2014 Follow Up Appt 6 months Lev Latif MD Start: 05-19-2014 End: 10-20-2014 Lipid panel [AGGREGATE] Lev Latif MD Start: 05-19-2014 End: 10-08-2014 PFM Lev Latif MD Start: 12-02-2013 End: 12-02-2013 Follow Up Appt 6 months Nurys sánchez PA-C Work Phone: Start: 12-02-2013 End: 12-02-2013 PF Nurys Whitehead PA-C Work Phone: Start: 12-02-2013 End: 12-02-2013 Follow Up Appt 6 months Nurys sánchez PA-C Work Phone: Start: 12-02-2013 End: 12-02-2013 PFM Nurys Whitehead PA-C Work Phone: Start: 05-27-2013 End: 05-27-2013 Follow Up Appt 6 months Lev Latif MD Start: 05-27-2013 End: 05-27-2013 PFM Lev Latif MD Start: 05-27-2013 End: 05-27-2013 Follow Up Appt 6 months Lev Latif MD Start: 05-27-2013 End: 05-27-2013 PFM Lev Latif MD Start: 12-10-2012 End: 12-10-2012 Follow Up Appt 6 months Nurys sánchez PA-C Work Phone: Start: 12-10-2012 End: 11-19-2013 Nuclear stress test -exercise Nurys Whitehead PA-C Work Phone: Start: 12-10-2012 End: 12-10-2012 PF Nurys Whitehead PA-C Work Phone: Start: 12-10-2012 End: 12-10-2012 Follow Up Appt 6 months Nurys sánchez PA-C Work Phone: Start: 12-10-2012 End: 11-19-2013 Nuclear stress test -exercise Nurys Whitehead PA-C Work Phone: Start: 12-10-2012 End: 12-10-2012 PF Nurys Whitehead PA-C Work Phone: Start: 10-12-2012 End: 05-07-2013 *Hepatic Function Panel Lev Latif MD Start: 10-12-2012 End: 05-07-2013 Lipid 1996 panel - Serum or Plasma Lev Latif MD Start: 10-12-2012 End: 05-07-2013 *Hepatic Function Panel Lev Latif MD Start: 10-12-2012 End: 05-07-2013 Lipid panel [AGGREGATE] Lev Latif MD Start: 05-14-2012 End: 11-23-2012 Ecg routine ecg w/least 12 lds w/i&r Lev Latif MD Start: 05-14-2012 End: 05-14-2012 eRx Transmitted during this visit (Medicare only) Lev Latif MD Start: 05-14-2012 End: 11-23-2012 Nuclear stress test -exercise Lev Latif MD Start: 05-14-2012 End: 11-23-2012 Electrocardiogram, complete Lev Latif MD Start: 05-14-2012 End: 05-14-2012 eRx Transmitted during this visit (Medicare only) Lev Latif MD Start: 05-14-2012 End: 11-23-2012 Follow Up Appt 6 months Lev Latif MD Start: 05-14-2012 End: 11-23-2012 Nuclear stress test -exercise Lev Latif MD Start: 04-20-2012 End: 05-01-2012 *Hepatic Function Panel Lev Latif MD Start: 04-20-2012 End: 05-01-2012 Lipid 1996 panel - Serum or Plasma Lev Latif MD Start: 04-20-2012 End: 05-01-2012 *Hepatic Function Panel Lev Latif MD Start: 04-20-2012 End: 05-01-2012 Lipid panel [AGGREGATE] Lev Latif MD Start: 11-07-2011 End: 11-07-2011 Follow Up Appt 6 months Lev Latif MD Start: 11-07-2011 End: 11-07-2011 Follow Up Appt 6 months Lev Latif MD History of coronary artery bypass grafting S/P CABG (coronary artery bypass graft) Branden Sinha MD Work Phone: History of coronary artery bypass grafting S/P CABG (coronary artery bypass graft) Brenda Santizo APRN.SUBSTATION DESIGNER Work Phone: History of coronary artery bypass grafting S/P CABG (coronary artery bypass graft) Branden Sinha MD Work Phone: History of coronary artery bypass grafting S/P CABG (coronary artery bypass graft) Brenda Santizo APRN.SUBSTATION DESIGNER Work Phone: History of coronary artery bypass grafting S/P CABG (coronary artery bypass graft) Amilcar Cabral MD Work Phone: History of placement of stent for coronary artery disease S/P drug eluting coronary stent placement Brenda Santizo APRN.SUBSTATION DESIGNER Work Phone: History of placement of stent for coronary artery disease S/P drug eluting coronary stent placement Branden Sinha MD Work Phone: History of placement of stent for coronary artery disease S/P drug eluting coronary stent placement Brenda Santizo APRN.SUBSTATION DESIGNER Work Phone: Plan of Treatment Date Care Activity Detail Author Start: 12-06-2032 Urine microalbumin profile [facility] Start: 06-12-2026 Diabetes Screening Diabetes Screenin g [facility] Start: 06-13-2025 DIABETES SCREEN DIABETES SCREEN [facility] Start: 07-10-2024 Annual PCP Team Microfilm Mounter genesis Disease Visit Annual PCP Team Chronic Disease Visit [facility] Start: 07-10-2024 BP Controlled (<130/80) BP Controlle d (<130/80) [facility] Start: 07-10-2024 RSV Vaccine (1 - 1-d ose 60+ series) RSV Vaccine (1 - 1-dose 60+ series) [facility] Immunizations Immunization Date Immunization Notes Care Provider Fa cililevon 07-10-2023 COVID-19 vaccine, ag e 12+ yr, season ([employer]) Amilcar Cabral MD Work Phone: [facility] 07-10-2023 influenza (HD-IIV4) vaccine, age 65+ yr, high dose, quadrivalent, PF (FLUZONE HIGH-DOSE) Amilcar Cabral MD Work Phone: [facility] 12-06-2022 tetanus toxoid, redu lindsey diphtheria toxoid, and acellular pertussis vaccine, adsorbed Brenda Santizo MARCY.SUBSTATION DESIGNER Work Phone: [facility] Work Phone: 05-03-2022 COVID-19 booster vaccine, age 12+ yr, bivalent (PFIZER-BIONTECH) Brenda Santizo APRN.SUBSTATION DESIGNER Work Phone: [facility] 05-03-2022 influenza, high-dose , quadrivalent vaccine (FLUZONE HIGH DOSE QUADRIVALENT) Brendavero Santizo APRN.SUBSTATION DESIGNER Work Phone: [facility] 05-03-2022 influenza virus vacc ine, unspecified formulation Branden Sinha MD Work Phone: [facility] 07-01-2021 COVID-19 original vaccine, age 12+ yr, monovalent (PFIZER-BIONTECH - PURPLE TOP) Brenda Gambledemetrius VIDAL.SUBSTATION DESIGNER Work Phone: [facility] Work Phone: 11-10-2020 COVID-19 vaccine, ag e 12+ yr (PFIZER-BIONTECH - PURPLE TOP) Branden Sinha MD Work Phone: [facility] Work Phone: 10-20-2020 COVID-19 vaccine, ag e 12+ yr (PFIZER-BIONTECH - PURPLE TOP) Branden Sinha MD Work Phone: [facility] Work Phone: 05-13-2018 influenza, high dose seasonal, preservative-free Branden Sinha MD Work Phone: [facility] 05-26-2017 influenza, high dose seasonal, preservative-free Branden Sinha MD Work Phone: [facility] 05-09-2016 influenza, high dose seasonal, preservative-free Branden Sinha MD Work Phone: [facility] 06-25-2015 pneumococcal conjuga te vaccine, 13 valent Branden Sinha MD Work Phone: [facility] 05-13-2015 influenza, high dose seasonal, preservative-free Branden Sinha MD Work Phone: [facility] 05-12-2014 influenza, seasonal, injectable Branden Sinha MD Work Phone: [facility] 05-07-2013 influenza virus vacc ine, unspecified formulation Branden Sinha MD Work Phone: [facility] 06-08-2012 tetanus toxoid, redu lindsey diphtheria toxoid, and acellular pertussis vaccine, adsorbed Branden Sinha MD Work Phone: [facility] 05-07-2012 influenza virus vacc ine, unspecified formulation Branden Sinha MD Work Phone: [facility] Work Phone: 05-07-2012 pneumococcal polysaccharide vaccine, 23 valent Branden Sinha MD Work Phone: [facility] Work Phone: 08-03-2009 novel influenza-H1N1 -09, preservative-free, injectable Branden Sinha MD Work Phone: [facility] Work Phone: 07-13-2009 novel influenza-H1N1 -09, all formulations Branden Sinha MD Work Phone: [facility] 05-11-2009 influenza virus vacc ine, unspecified formulation Branden Sinha MD Work Phone: [facility] 06-13-2008 influenza virus vacc ine, whole virus Branden Sinha MD Work Phone: [facility] Work Phone: 12-11-2007 zoster vaccine, live Branden Sinha MD Work Phone: [facility] 06-05-2007 influenza virus vacc ine, unspecified formulation Branden Sinha MD Work Phone: [facility] Work Phone: 07-25-2006 pneumococcal polysaccharide vaccine, 23 valent Branden Sinha MD Work Phone: [facility] Work Phone: 02-08-2001 tetanus and diphther ia toxoids, not adsorbed, for adult use Branden Sinha MD Work Phone: [facility] Payers Date Payer Category Payer Medicare [id number] 2017 Private Health Insurance [employer] HU[employer] MEDICARE SUPPLEMENT [id number] 2017-Present [phone] [address] [address] [place] [address] Indemnity [id number] 2017 Private Health Insurance HUMANA HUMANA MEDICARE SUPPLEMENT [id number] 2017-Present [phone] [id number] [place] [id number] Indemnity [id number] 2008 Medicare MEDICARE MEDICAR E A AND B [id number] 2008-Present [phone] [address] [address] [place] [address] Medicare [id number] 2008 Medicare MEDICARE MEDICAR E A AND B [id number] 2008-Present [phone] [address] [address] [place] [address] Medicare [id number] 2008 Medicare [id number] Social History Date Type Detail Facility Start: 05-03-2022 Tobacco smoking status NHIS Ex-smoker [facility] End: 07-23-1986 History of tobacco use Current smoker [facility] End: 07-23-1986 History of tobacco use Cigarette Smoker [facility] Start: 06-11-2021 End: 07-10-2023 Alcohol intake Current drinker of alcohol (finding) [facility] Start: 06-11-2021 End: 06-12-2023 Alcohol intake [facility] Start: 01-13-2021 History SDOH Alcohol Frequency 1 [facility] Start: 07-30-2007 History SDOH Alcohol Comment 4-5 beers a year [facility] Start: 01-13-2021 History SDOH Social Connections Phone 2 [facility] Start: 01-13-2021 History SDOH Social Connections Meetings 3 [facility] Start: 01-13-2021 History SDOH Social Connections Living 4 [facility] Start: 01-13-2021 History SDOH Physical Activity DPW 6 [facility] Start: 01-13-2021 History SDOH Financial 5 [facility] Start: 01-13-2021 Education 21 [facility] Start: 1945 Sex Assigned At Male [facility] Start: 05-03-2022 Tobacco use and exposure Smokeless tobacco non-user [facility] Start: 04-18-2022 End: 06-13-2022 Exposure to SARS-CoV-2 (event) Not sure [facility] Work Phone: Start: 01-13-2021 End: 06-12-2023 Social connection and isolation panel [facility] Do you belong to any clubs or organizations such as buddhist groups, unions, fraternal or athletic groups, or school groups? Yes [facility] Are you now , , , , never or living with a partner? [facility] How often to you hav e a drink containing alcohol? Never [facility] Average Number of Drinks Not on file [facility] Do you feel stress - tense, restless, nervous, or anxious, or unable to sleep at night because your mind is troubled all the time - these days [OSQ] Not at all [facility] (I/We) worried wheth er (my/our) food would run out before (I/we) got money to buy more. Never true [facility] In the past 12 month s, was there a time when you were not able to pay the mortgage or rent on time? No [facility] Start: 02-17-2020 Gender identity Identifies as male gender (finding) [facility] Start: 02-17-2020 Sexual orientation Heterosexual (finding) [facility] Clinical Notes 05-12-2018 to 07-11-2023 Osmar Mccartney RT(R) - 07/11/2023 4:00 PM ESTTelephone Encounter - Cristóbal George - 06/13/2023 9:48 AM EDTTelephone Encounter - Frances Banegas - 06/12/2023 2:19 PM EDTPatient Instructions Note Date & Type Note Facility 07-11-2023 Note HNO ID: [id number] Author: Osmar Mccartney RT(R) Service: ? Author Type: Technologist Type: Progress Notes Filed: 07/11/2023 3:11 PM Note Text: RADIOLOGY SERVICE PROGRESS NOTE SERVICE DATE: 07/11/2023 SERVICE TIME: 2:58 PM PATIENT IDENTITY VERIFICATION COMPLETED USING TWO (2) STANDARD IDENTIFIERS: Name and Date of confirmed by patient verbally and Name and Date of confirmed by identification band FALL SCREENING: Has the patient had 2 falls in the last year or 1 fall with injury or currently using an Ambulatory Assistive Device (Walker, Cane, Wheelchair, Crutches, etc.)? No PATIENT GENDER DATA: .male : No ALLERGIES: Reviewed and unchanged MEDICATIONS REVIEWED: Yes PATIENT RELEVANT IMPLANT DATA REVIEWED: Not Applicable CREATININE: Creatinine Date Value Ref Range Status 06/12/2023 0.88 0.73 - 1.22 mg/dL Final 06/13/2022 0.94 0.73 - 1.22 mg/dL Final 06/24/2020 0.94 0.73 - 1.22 mg/dL Final Estimated Glomerular Filtration Rate Date Value Ref Range Status 06/12/2023 87 >=60 mL/min/1.73m? Final Comment: Estimated Glomerular Filtration Rate (eGFR) is calculated using the 2020 CKD-EPI creatinine equation. This equation utilizes serum creatinine, sex, and age as parameters. The creatinine assay has traceable calibration to isotope dilution-mass spectrometry. Refer to KDIGO guidelines for clinical interpretation. In patients with unstable renal function, e.g. those with acute kidney injury, the eGFR may not accurately reflect actual GFR. eGFR- Date Value Ref Range Status 06/24/2020 >60 Final P.O.C.T. RESULTS: N/A July 11, [address] PERFORMED: No IV SITE: Ambulatory: A peripheral IV was started in the Right antecubital site with a Angio cath: 20 gauge. POST EXAM PIV STATUS: Discontinued PROCEDURE TYPE: NM PET Myocardial Imagin.8 mCi Rb-82(Rubidium) was administered IV for Rest Imaging at 2:55pm. 24.7 mCi Rb-82(Rubidium) was administered IV for Stress Imaging at 3:08pm. Viability Imaging performed: No. ADMINISTRATION TIME: PATIENT DISCHARGED TO: Ambulatory patient, left [place] department area. A Diagnostic radioactive procedure has taken place, with no further precautions necessary other than routine body substance precautions. More information regarding radiation safety can be found using this link: [email or web address] tection [email or web address]%20Nuclear%20Medi cine%20Procedures.[email or web address] SIGNATURE: RT Newton(R) PATIENT NAME: Mauro Carrillo DATE: July 11, 2023 TIME: 2:58 PM PAGER/CONTACT #: [facility] 07-11-2023 History of Present illness Narrative RADIOLOGY SERVICE PROGRESS NOTE SERVICE DATE: 07/11/2023 SERVICE TIME: 2:58 PM PATIENT IDENTITY VERIFICATION COMPLETED USING TWO (2) STANDARD IDENTIFIERS: Name and Date of confirmed by patient verbally and Name and Date of confirmed by identification band FALL SCREENING: Has the patient had 2 falls in the last year or 1 fall with injury or currently using an Ambulatory Assistive Device (Walker, Cane, Wheelchair, Crutches, etc.)? No PATIENT GENDER DATA: .male : No ALLERGIES: Reviewed and unchanged MEDICATIONS REVIEWED: Yes PATIENT RELEVANT IMPLANT DATA REVIEWED: Not Applicable CREATININE: Creatinine Date Value Ref Range Status 06/12/2023 0.88 0.73 - 1.22 mg/dL Final 06/13/2022 0.94 0.73 - 1.22 mg/dL Final 06/24/2020 0.94 0.73 - 1.22 mg/dL Final Estimated Glomerular Filtration Rate Date Value Ref Range Status 06/12/2023 87 >=60 mL/min/1.73m Final Comment: Estimated Glomerular Filtration Rate (eGFR) is calculated using the 2020 CKD-EPI creatinine equation. This equation utilizes serum creatinine, sex, and age as parameters. The creatinine assay has traceable calibration to isotope dilution-mass spectrometry. Refer to KDIGO guidelines for clinical interpretation. In patients with unstable renal function, e.g. those with acute kidney injury, the eGFR may not accurately reflect actual GFR. eGFR- Date Value Ref Range Status 06/24/2020 >60 Final P.O.C.T. RESULTS: N/A July 11, [address] PERFORMED: No IV SITE: Ambulatory: A peripheral IV was started in the Right antecubital site with a Angio cath: 20 gauge. POST EXAM PIV STATUS: Discontinued PROCEDURE TYPE: NM PET Myocardial Imagin.8 mCi Rb-82(Rubidium) was administered IV for Rest Imaging at 2:55pm. 24.7 mCi Rb-82(Rubidium) was administered IV for Stress Imaging at 3:08pm. Viability Imaging performed: No. ADMINISTRATION TIME: PATIENT DISCHARGED TO: Ambulatory patient, left [place] department area. A Diagnostic radioactive procedure has taken place, with no further precautions necessary other than routine body substance precautions. More information regarding radiation safety can be found using this link: [email or web address] %[email or web address] SIGNATURE: RT Newton(Tana) PATIENT NAME: Mauro Carrillo DATE: July 11, 2023 TIME: 2:58 PM PAGER/CONTACT #: documented in this encounter [facility] 07-10-2023 Note HNO ID: [id number] Author: Amilcar Cabral MD Service: ? Author Type: Physician Type: Progress Notes Filed: 08/12/2023 5:41 PM Note Text: This note was created using DanceOnter. Subjective Mauro Carrillo is a 77 year old male. Patient presents with: F/U 6 months SUBJECTIVE: Mauro Carrillo is a 77 year old year old gentleman here today for 6 month follow up appointment for review of medical conditions. Protonix is working. Gets mild reflux symptoms in epigastric area. Little bit of burning. No pain in stomach . If tries to go every other with PPI, reflux recurs. Watches diet. No pop. 1 glass of tea with supper. Avoids eating after 5PM; bedtime 11PM to 12AM Reviewed that did not know when had the stomach ulcer when was found to be anemic and had acute pain with acute bleeding. No H pylori associated. Noted RXs went through as [facility] in May for 4 meds so no more refills left at pharmacy. Walks 40 minutes a day (cut back from walking 4 miles a day. PAST MEDICAL HISTORY Diagnosis Date Cardiac dysrhythmia, unspecified 07/30/2007 history of paroxysmal atrial and ventricular complexes and nonsustained ventricular tachycardia Coronary atherosclerosis of unspecified type of vessel, [place] or graft 07/30/2007 [place] Date: 1985. CABG Date: 1986 - left internal mammary artery to left anterior descending, right internal mammary artery to right coronary artery, and saphenous vein graft to diagonal artery. PCI Date: 05/23/02 - stents in his ostial and proximal circumflex and in his obtuse marginal branch PTCA Date: 05/23/02 - posterior lateral branch COVID-19 07/2021 History of bleeding ulcers History of ventricular tachycardia 04/05/2011 Dr Latif [facility] Pure hypercholesterolemia 03/22/2005 Unspecified cardiovascular disease 03/22/2005 [facility]--Dr. Latif Ventricular tachycardia (HCC) 12/06/2022 Current Outpatient Medications Medication Sig pantoprazole DR (PROTONIX) 20 mg tablet Take 1 tablet by mouth once daily. nitroglycerin sublingual (NITROSTAT) 0.4 mg SL tablet Dissolve 1 tablet under the tongue as needed for chest pain. If no pain relief call 911. clopidogrel (PLAVIX) 75 mg tablet Take 1 tablet by mouth once daily. ezetimibe (ZETIA) 10 mg tablet Take 1 tablet by mouth once daily. metoprolol succinate ER (TOPROL XL) 25 mg 24 hr tablet Take 1 tablet by mouth once daily. rosuvastatin (CRESTOR) 40 mg tablet Take 1 tablet by mouth daily at bedtime. Flaxseed Oil 1,000 mg cap Take 1 capsule by mouth once daily. coenzyme Q10 (COENZYME Q-10) 100 mg cap capsule Take 100 mg by mouth once daily. Lutein 6 mg ORAL Cap Take one(1) tablet daily. Current Facility-Administered Medications Medication Dose Route Frequency perflutren lipid microspheres 1.3 mL in NaCl (PF) 0.9% 10 mL injection (DEFINITY) INTRAVENOUS DIRECTED PRN sodium chloride 0.9 % (flush) 10 mL (BD POSIFLUSH) 10 mL INTRAVENOUS DIRECTED PRN Review of Systems Objective BP 118/68 Pulse 78 Temp 36.8 ?C (98.2 ?F) Resp 18 Wt 79.8 kg (176 lb) SpO2 98% BMI 23.87 kg/m? Last 5 Encounter Wt Readings: Date: Wt: 07/10/2023 79.8 kg (176 lb) 06/12/2023 77.1 kg (170 lb) 12/06/2022 79.4 kg (175 lb) 06/13/2022 76.9 kg (169 lb 9.6 oz) 05/03/2022 76.7 kg (169 lb) No waist measurement recorded Estimated body mass index is 23.87 kg/m? as calculated from the following: Height as of 06/12/23: 182.9 cm (6'). Weight as of this encounter: 79.8 kg (176 lb). Last 5 Encounter BP Readings: Date: BP: 07/10/2023 118/68 06/12/2023 133/81 12/06/2022 124/70 06/13/2022 121/74 05/03/2022 118/80 Physical Exam Vitals reviewed. Constitutional: Appearance: Normal appearance. HENT: Right Ear: Ear canal and external ear normal. There is impacted cerumen. Left Ear: Ear canal and external ear normal. There is impacted cerumen. Eyes: Conjunctiva/sclera: Conjunctivae normal. Cardiovascular: Rate and Rhythm: Normal rate and regular rhythm. Heart sounds: Normal heart sounds. Pulmonary: Effort: Pulmonary effort is normal. Breath sounds: Normal breath sounds. Musculoskeletal: Right lower leg: No edema. Left lower leg: No edema. Skin: General: Skin is warm and dry. Neurological: General: No focal deficit present. Mental Status: He is alert and oriented to person, place, and time. Psychiatric: Mood and Affect: Mood normal. Behavior: Behavior normal. Thought Content: Thought content normal. Judgment: Judgment normal. Assessment and Plan Encounter Diagnosis ICD-10-CM 1. Gastroesophageal reflux disease without esophagitis K21.9 Needs to stay on PPI to control GERD. Continue management.Keep up lifestyle modifications 2. Essential hypertension I10 metoprolol succinate ER (TOPROL XL) 25 mg 24 hr tablet CBC Well controlled. Stay on same meds. 3. Atherosclerosis of [place] coronary artery of [place] heart without angina (more content not included)... [facility] 06-13-2023 Miscellaneous Notes Pt scheduled 07/11 Preliminary Approval for Scheduling Purposes ONLY Are Cardiac PET orders Present: Yes Do the order comments specify a Protocol or Instruction? Yes LVEF: LV Ejection Fraction (%) Date Value 06/27/2022 57 Test Approved: Yes, N/A PET Perfusion Rest & Stress (0109) Additional Comments: N/A Test Approved by: Frances Banegas If additional orders are required route to ordering physician and to P [facility] with recommendations. If all recommended orders are present route to P [facility] This form is used for MAIN CAMPUS APPOINTMENTS ONLY. Is this request for a Main [place] PET scan appointment? Yes: Elevator Constructor Electric: Rashaad Gómez Requesting Person (Last Name, First Name): Area Code + Phone/Pager: [phone] Who do we call to schedule this appointment? Patient Requesting Staff Area Code + Phone/Pager: [phone] PET Orders (A delay in scheduling will result if the orders are not present at time of review): Internal ADDITIONAL ACTION MAY BE REQUIRED IF PATIENTS OON INSURANCE OR SELF PAY COVERAGE HAS NOT BEEN CLEARED FOR REQUESTED APPOINTMENT. Scheduling: ISAAC: As soon as insurance will allow What account will this PET appointment be linked to? P/F Type of PET: Myocardial (Cardiac). Which PET orders are active (select all that apply)? PET Cardiac Rest/Stress Is this cardiac PET for Sarcoidosis?(See orders) No Is this a NON-[facility] Physician ordering a cardiac PET with a FAXED script? No. Same day/next day medically urgent scans please call [phone] to expedite LVEF: LV Ejection Fraction (%) Date Value 06/27/2022 57 LVEF Free text: Yes, see above. Additional comments: N/A Send requests to P CARDIAC PET MD [place] documented in this encounter [facility] 06-12-2023 Miscellaneous Notes Prior auth request received and is available for review under scanned documents Annette documented in this encounter [facility] 06-12-2023 Note HNO ID: [id number] Author: Branden Sinha MD Service: ? Author Type: Physician Type: Progress Notes Filed: 06/15/2023 2:00 PM Note Text: Heart, Vascular and Thoracic [place] [facility]yva Department of Cardiovascular Medicine SECTION OF INTERVENTIONAL CARDIOLOGY OUTPATIENT VISIT DATE June 12, 2023 OUTPATIENT VISIT TYPE ESTABLISHED PRIMARY CARE PHYSICIAN: Amilcar Cabral [address] [place] [address] REFERRING PHYSICIAN: No referring provider defined for this encounter. CHIEF COMPLAINT: Patient presents with: CARD Follow Up Annual HISTORY OF PRESENT ILLNESS: Mr. Carrillo is a 77 year old male with CAD and prior CABG and PCI who presents today for follow-up visit. 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 Over the last summer or ~6 months, has noted SOB with odd things like working with arms above his head (putting up blinds) or unusual yardwork. Does not occur with regular walking 6 days per week, 2.5 mile in 40 minutes (4 mph), still unloads 25-45 cases (33 lbs) of wine without SOB. No chest pain (has never had chest pain). He denies orthopnea, PND, palpitations, lightheadedness, syncope, and leg swelling. PAST CARDIAC HISTORY: 07/23/1986 - [place] - symptoms were SOB after chasing a calf at work (at [employer]). 08/1986 - CABG - TORRES to LAD, KAMLESH to RCA, SVG to diagonal 2001 - abnormal stress test 05/24/2002 - Cath by me - severe CAD, patent grafts. Underwent PCI with BMS to ostial and proximal LCX. 2006 - seen by me with abnormal screen stress test - mild inferior ischemia; no cath performed given absence of ischemic symptoms. 2014 - noted SHIELDS on climbing hills or inclines as part of his regular walk, relieved with rest in ~5 minutes, for which he has reduced his exercise level or activities. Never had in past, and he walks this regularly. 10/31/2014 - Stress test at OSH - performed for patient's complaints of SHIELDS. No chest pain. 9:00 Nathan, 10 METS, patient reports dyspnea during stress test. Nuclear - Inferior scar, marian-infarct ischemia vs attenuation. LVEF 52%. 12/02/2014 - Cardiac catheterization and PCI by me: LM - distal eccentric 80-90% in-stent restenosis LAD - 100% ostial LCX - stents in proximal LCX, mid LCX into OM, and PL widely patent. RCA - small, 100% diffuse mid TORRES to LAD - widely patent, fills large LAD KAMLESH (in situ) to distal RCA - widely patent SVG to Diagonal - widely patent Underwent PCI of the distal LM with Promus Premier 3.5 x 12 mm everolimus eluting stent. 05/09/2017 - Stress Nuclear at OSH - routine, no symptoms Nathan 10:15, Stage IV, 12 METS 111% APMHR, ECG - RBBB, no ischemic changes Rare PVCs, couplet Terminated due to dyspnea Nuclear - inferoseptal and basal inferior scar with mid inferoseptal and inferior marian-infarct ischemia. LVEF 59% My impression at that time: No indication for catheterization in absence of symptoms. His prior stress tests have shown varying degrees of scar + ischemia in inferior distribution, despite patent graft (KAMLESH) to RCA in 11/2014. Certainly, if he were to develop his typical dyspnea symptom (which has been a reliable indicator of ischemia in the past), would proceed with catheterization. 05/12/2018 - awoke with diaphoresis, concerned he was having a heart attack. Taken to ED, found to be anemic, had hematemesis. EGD at OSH showed large clot in stomach. Transfused 1 unit PRBc, transferred to [facility]. 05/14/2018 - EGD showed gastric ulcers and duodenitis, no longer bleeding. Discharge on Protonix, with discontinued clopidogrel, continued aspirin. 06/01/2018 - Stress Nuclear in [place] Nathan 7:00, Stage 3, 107% APMHR, 8 METS ECG - baseline RBBB, exercise 1-[address] depression in I, L, V2 Nuclear - mid inferoseptal/basal, mid inferior perfusion changes appearing compatible with an area of previous [place] LVEF 59% 07/06/2018 - EGD as [facility] - healed gastric ulcers, no bleeding. 07/19/2018 - Capsule endoscopy - normal 06/07/2019 - saw me in [facility] - Clopidogrel has not been restarted. No further GI bleeding. Hemoglobin now above 13 mg/dL. Exercise tolerance preserved. No chest pain or SOB. 06/08/2020 - saw me in [facility] - no ischemic symptoms. Saw GI this year - felt EGD not necessary this year, reduced Protonix to 20 mg daily 06/11/2021 - saw me in [facility] - no ischemic symptoms. LDL 73, atorvastatin increased from 40 to 80 mg daily. 10/26/2021 - saw local software engineering project manager in [place] who ordered repeat stress test for surveillance (patient asymptomatic) 10/28/2021 - OSH exercise SPECT Mild marian-infarct ischemia in the basal inferior/inferoseptal segments. LVEF 60%. 06/13/2022 - saw me in [facility] - no ischemic symptoms. 06/20/2022 - Abdominal ultrasound - Minimal dilatation of the proximal abdominal aorta. No infrarenal abdominal aortic aneurysm. AORTA (AP x TV): Proximal: 3.0 cm x 2.6 cm Mid (level of renal deisy (more content not included)... [facility] 12-06-2022 Note HNO ID: [id number] Author: Brenda Santizo APRN.SUBSTATION DESIGNER Service: ? Author Type: Nurse Specialist Type: Progress Notes Filed: 12/06/2022 3:09 PM Note Text: SUBJECTIVE: SHINGRIX VACCINE(2 of 3) due on 02/05/2008 DTAP,TDAP,TD(2 - Td or Tdap) due on 06/08/2022 ADVANCE DIRECTIVE DISCUSSION due on 08/14/2022 DEPRESSION ASSESSMENT Never done HPI Mauro Carrillo is a 77 year old male. PMH signfiicant for ACTIVE PROBLEM LIST Hyperlipidemia Enthesopathy of Ankle and Tarsus, Unspecified Coronary Atherosclerosis Cardiac Dysrhythmia, Unspecified Essential Hypertension Old Myocardial Infarction Pvc (Premature Ventricular Contraction) S/P Drug Eluting Coronary Stent Placement S/P Cabg (Coronary Artery Bypass Graft) Chronic Idiopathic Thrombocytopenia (Hcc) Bcc (Basal Cell Carcinoma of Skin) Basal Cell Carcinoma of Left Lower Eyelid Peptic Ulcer Atherosclerosis of [place] Coronary Artery of [place] Heart Without Angina Pectoris Pure Hypercholesterolemia Encounter for Long-Term (Current) Use of Insulin (Hcc) Ventricular Tachycardia (Hcc) HPI excerpted from previous visit: ..seen for routine follow up. PMH is significant for CAD, s/p CABG, PCI, HLP, HTN, PUD, chronic idiopathic thrombocytopenia. He notes some stress as primary caregiver for his for the last 3 months for life before passing away. She was bedridden and he was providing total care. Notes her skin some decrease in stress since she . Notes and resumed walking, currently 2 to 3 miles. No symptomatic complaints with this activity. Notes seen by cardiology yesterday. Stable from a cardiac standpoint. Weight is decreased over the last year. Eating a healthy diet.. Notes his chest pain equivalent is shortness of breath, no recent experience of this. He has completed vaccination for covid19. Today reports in his usual state of health. Walking routinely, staying active and socially engaged. Has maintain normal weight. Without report of chest pain or shortness of breath. CAD: Follows with Dr. Sinha and Dr. Latif. CABG at [facility] with Dr. Rider. Last seen by 05/2022 echocardiogram completed showed mild concentric LVH, normal LV systolic function, estimated EF 57%. Grade 1 left ventricular diastolic dysfunction. Mildly dilated RA. No significant valvular abnormalities. Followed by [place] [facility]. Prescribed atorvastatin 80 mg daily, clopidogrel 75 mg daily ezetimibe 10 mg daily and metoprolol ER 25 mg daily. Notes his current software engineering project manager will be leaving [facility]. Considering seeing another software engineering project manager locally HTN: Mr. Carrillo indicates that he is without headache, chest pain, palpitations, dyspnea, peripheral edema, orthopnea, fatigue and PND. Last 14 Encounter BP Readings: Date: BP: 12/06/2022 124/70 06/13/2022 121/74 05/03/2022 118/80 06/11/2021 112/79 01/15/2021 112/70 06/08/2020 135/56 02/19/2020 143/69 06/07/2019 126/72 02/11/2019 110/60 09/17/2018 125/69 08/30/2018 110/62 08/24/2018 110/62 07/31/2018 110/68 06/04/2018 117/66 Hyperlipidemia. Mr. Carrillo reports doing well on current therapy, no AEs noted. Prior history ulcer, is currently on PPI, no current NSAID use. He reports routinely using PPI as he was having GERD symptoms occasionally when he was not taking it. No abdominal pain nausea vomiting BRBPR black or tarry stools. Review of Systems Constitutional: Negative. Respiratory: Negative. Cardiovascular: Negative. Gastrointestinal: Negative. Objective BP 124/70 Pulse 62 Resp 16 Wt 79.4 kg (175 lb) SpO2 97% BMI 23.73 kg/m? Physical Exam Vitals and nursing note reviewed. HENT: Head: Normocephalic and atraumatic. Eyes: Conjunctiva/sclera: Conjunctivae normal. Neck: Thyroid: No thyromegaly or thyroid tenderness. Vascular: Normal carotid pulses. No carotid bruit or JVD. Cardiovascular: Rate and Rhythm: Normal rate and regular rhythm. Pulses: Carotid pulses are 2+ on the right side and 2+ on the left side. Radial pulses are 2+ on the right side and 2+ on the left side. Pulmonary: Effort: Pulmonary effort is normal. Breath sounds: Normal breath sounds. Abdominal: General: Bowel sounds are normal. Musculoskeletal: Right lower leg: No edema. Left lower leg: No edema. Skin: General: Skin is warm and dry. Neurological: General: No focal deficit present. Mental Status: He is oriented to person, place, and time. ALLERGIES No Known Allergies Medications pantoprazole DR (PROTONIX) 20 mg tabletTake 1 tablet by mouth once daily.Disp: 90 tabletRfl: 3 atorvastatin (LIPITOR) 80 mg tabletTake 1 tablet by mouth once daily. As directedDisp: 90 tabletRfl: 3 nitroglycerin sublingual (NITROSTAT) 0.4 mg SL tabletDissolve 1 tablet under the tongue as needed for Chest Pain. If no pain relief call 911.Disp: 1 Bottle of 25Rfl: 3 clopidogrel (PLAVIX) 75 mg tabletTake 1 tablet by mouth (more content not included)... [facility] 12-06-2022 Instructions Brenda Santizo APRN.[facility] - 12/06/2022 2:20 PM EDT documented in this encounter [facility] documented as of this encounter (statuses as of 12/07/2022) [facility]23 History of Past illness Narrative* Problem Noted Date Diagnosed Date Resolved Date Ventricular tachycardia 12/06/202211/13 Hematemesis 05/12/2018 05/15/2018 Hypertension 12/02/2014 01/23/2018 History of ventricular tachycardia 04/05/2011 08/02/2017 Overview: [facility] Postsurgical aortocoronary bypass status 04/05/2011 08/02/2017 Overview: Dr [facility] Tobacco use disorder 11/06/2008 010 Overview: About a 30 pack year from age 18 to 38: quit at age 40 on the day of his [place] US 10-09 showed no aneurysmal dilatation documented as of this encounter (statuses as of 06/13/2023) [facility] History of Past illness Narrative* Problem Noted Date Diagnosed Date Resolved Date Ventricular tachycardia 12/06/202211/13 Hematemesis 05/12/2018 05/15/2018 Hypertension 12/02/2014 01/23/2018 History of ventricular tachycardia 04/05/2011 08/02/2017 Overview: [facility] Postsurgical aortocoronary bypass status 04/05/2011 08/02/2017 Overview: [facility] Tobacco use disorder 11/06/2008 010 Overview: About a 30 pack year from age 18 to 38: quit at age 40 on the day of his [place] US 10-09 showed no aneurysmal dilatation documented as of this encounter (statuses as of 07/12/2023) [place] [id number] History of Past illness Narrative* Problem Noted Date Diagnosed Date Resolved Date Ventricular tachycardia 12/06/2022 04/2 12/2022 Hematemesis 05/12/2018 05/15/2018 Hypertension 12/02/2014 01/23/2018 History of ventricular tachycardia 04/05/2011 08/02/2017 Overview: [facility] Postsurgical aortocoronary bypass status 04/05/2011 08/02/2017 Overview: [facility] Tobacco use disorder 11/06/2008 010 Overview: About a 30 pack year from age 18 to 38: quit at age 40 on the day of his [place] 05-22 showed no aneurysmal dilatation documented as of this encounter (statuses as of 07/12/2023) [facility] History of Present illness Narrative* Brenda Santizo, EXTRACTIONS TECHNICIAN.SUBSTATION DESIGNER - 12/06/2022 2:00 PM EDT SUBJECTIVE: SHINGRIX VACCINE(2 of 3) due on 02/05/2008 DTAP,TDAP,TD(2 - Td or Tdap) due on 06/08/2022 ADVANCE DIRECTIVE DISCUSSION due on 08/14/2022 DEPRESSION ASSESSMENT Never done HPI Mauro Carrillo is a 77 year old male. PMH signfiicant for ACTIVE PROBLEM LIST Hyperlipidemia Enthesopathy of Ankle and Tarsus, Unspecified Coronary Atherosclerosis Cardiac Dysrhythmia, Unspecified Essential Hypertension Old Myocardial Infarction Pvc (Premature Ventricular Contraction) S/P Drug Eluting Coronary Stent Placement S/P Cabg (Coronary Artery Bypass Graft) Chronic Idiopathic Thrombocytopenia (Hcc) Bcc (Basal Cell Carcinoma of Skin) Basal Cell Carcinoma of Left Lower Eyelid Peptic Ulcer Atherosclerosis of [place] Coronary Artery of [place] Heart Without Angina Pectoris Pure Hypercholesterolemia Encounter for Long-Term (Current) Use of Insulin (Hcc) Ventricular Tachycardia (Hcc) HPI excerpted from previous visit: ..seen for routine follow up. PMH is significant for CAD, s/p CABG, PCI, HLP, HTN, PUD, chronic idiopathic thrombocytopenia. He notes some stress as primary caregiver for his for the last 3 months for life before passing away. She was bedridden and he was providing total care. Notes her skin some decrease in stress since she . Notes and resumed walking, currently 2 to 3 miles. No symptomatic complaints with this activity. Notes seen by cardiology yesterday. Stable from a cardiac standpoint. Weight is decreased over the last year. Eating a healthy diet.. Notes his chest pain equivalent is shortness of breath, no recent experience of this. He has completed vaccination for covid19. Today reports in his usual state of health. Walking routinely, staying active and socially engaged. Has maintain normal weight. Without report of chest pain or shortness of breath. CAD: Follows with Dr. Sinha and Dr. Latif. CABG at [facility] with Dr. Rider. Last seen by 05/2022 echocardiogram completed showed mild concentric LVH, normal LV systolic function, estimated EF 57%. Grade 1 left ventricular diastolic dysfunction. Mildly dilated RA. No significant valvular abnormalities. Followed by [facility]. Prescribed atorvastatin 80 mg daily, clopidogrel 75 mg daily ezetimibe 10 mg daily and metoprolol ER 25 mg daily. Notes his current software engineering project manager will be leaving [facility]. Considering seeing another software engineering project manager locally HTN: Mr. Carrillo indicates that he is without headache, chest pain, palpitations, dyspnea, peripheral edema, orthopnea, fatigue and PND. Last 14 Encounter BP Readings: Date: BP: 12/06/2022 124/70 06/13/2022 121/74 05/03/2022 118/80 06/11/2021 112/79 01/15/2021 112/70 06/08/2020 135/56 02/19/2020 143/69 06/07/2019 126/72 02/11/2019 110/60 09/17/2018 125/69 08/30/2018 110/62 08/24/2018 110/62 07/31/2018 110/68 06/04/2018 117/66 Hyperlipidemia. Mr. Carrillo reports doing well on current therapy, no AEs noted. Prior history ulcer, is currently on PPI, no current NSAID use. He reports routinely using PPI as he was having GERD symptoms occasionally when he was not taking it. No abdominal pain nausea vomiting BRBPR black or tarry stools. Review of Systems Constitutional: Negative. Respiratory: Negative. Cardiovascular: Negative. Gastrointestinal: Negative. Objective BP 124/70 Pulse 62 Resp 16 Wt 79.4 kg (175 lb) SpO2 97% BMI 23.73 kg/m Physical Exam Vitals and nursing note reviewed. HENT: Head: Normocephalic and atraumatic. Eyes: Conjunctiva/sclera: Conjunctivae normal. Neck: Thyroid: No thyromegaly or thyroid tenderness. Vascular: Normal carotid pulses. No carotid bruit or JVD. Cardiovascular: Rate and Rhythm: Normal rate and regular rhythm. Pulses: Carotid pulses are 2+ on the right side and 2+ on the left side. Radial pulses are 2+ on the right side and 2+ on the left side. Pulmonary: Effort: Pulmonary effort is normal. Breath sounds: Normal breath sounds. Abdominal: General: Bowel sounds are normal. Musculoskeletal: Right lower leg: No edema. Left lower leg: No edema. Skin: General: Skin is warm and dry. Neurological: General: No focal deficit present. Mental Status: He is oriented to person, place, and time. ALLERGIES No Known Allergies Medications pantoprazole DR (PROTONIX) 20 mg tablet^Take 1 tablet by mouth once daily.^Disp: 90 tablet^Rfl: 3 atorvastatin (LIPITOR) 80 mg tablet^Take 1 tablet by mouth once daily. As directed^Disp: 90 tablet^Rfl: 3 nitroglycerin sublingual (NITROSTAT) 0.4 mg SL tablet^Dissolve 1 tablet under the tongue as needed for Chest Pain. If no pain relief call 911.^Disp: 1 Bottle of 25^Rfl: 3 clopidogrel (PLAVIX) 75 mg tablet^Take 1 tablet by mouth once daily.^Disp: 90 tablet^Rfl: 3 ezetimibe (ZETIA) 10 mg tablet^Take 1 tablet by mouth once daily.^Disp: 90 tablet^Rfl: 3 metoprolol succinate ER (TOPROL XL) 25 mg 24 hr tablet^Take 1 tablet by mouth once daily.^Disp: 90 tablet^Rfl: 3 Flaxseed Oil 1,000 mg cap^Take 1 capsule by mouth once daily.^Disp: ^Rfl: coenzyme Q10 (COENZYME Q-10) 100 mg cap capsule^Take 100 mg by mouth once daily. ^Disp: ^Rfl: Lutein 6 mg ORAL Cap^Take one(1) tablet daily.^Disp: ^Rfl: 0 PAST MEDICAL HISTORY Diagnosis Date Cardiac dysrhythmia, unspecified 07/30/2007 history of paroxysmal atrial and ventricular complexes and nonsustained ventricular tachycardia Coronary atherosclerosis of unspecified type of vessel, soboba or graft 07/30/2007 [place] Date: 1985. CABG Date: 1986 - left internal mammary artery to left anterior descending, right internal mammary artery to right coronary artery, and saphenous vein graft to diagonal artery. PCI Date: 05/23/02 - stents in his ostial and proximal circumflex and in his obtuse marginal branch PTCA Date: 05/23/02 - posterior lateral branch COVID-19 07/2021 History of bleeding ulcers History of ventricular tachycardia 04/05/2011 Dr Latif [facility] Pure hypercholesterolemia 03/22/2005 Unspecified cardiovascular disease 03/22/2005 [facility]--Dr. Latif Social History Tobacco Use Smoking status: Former Packs/day: 1.00 Years: 25.00 Pack years: 25.00 Types: Cigarettes Quit date: 07/23/1986 Years since quittin.3 Smokeless tobacco: Never Vaping Use Vaping Use: Never used Substance Use Topics Alcohol use: Yes Alcohol/week: 1.7 standard drinks Comment: 4-5 beers a year Drug use: No Component Latest Ref Rng & Units 06/13/2022 WBC 3.70 - 11.00 k/uL 4.71 RBC 4.20 - 6.00 m/uL 4.79 Hemoglobin 13.0 - 17.0 g/dL 14.8 Hematocrit 39.0 - 51.0 % 45.0 MCV 80.0 - 100.0 fL 93.9 MCH 26.0 - 34.0 pg 30.9 MCHC 30.5 - 36.0 g/dL 32.9 RDW-CV 11.5 - 15.0 % 13.2 Platelet Count 150 - 400 k/uL 131 (L) MPV 9.0 - 12.7 fL 11.5 Neut% % 55.7 Abs Neut (ANC) 1.45 - 7.50 k/uL 2.62 Lymph% % 32.3 Abs Lymph 1.00 - 4.00 k/uL 1.52 Schley% % 8.7 Abs Schley <0.87 k/uL 0.41 Eosin% % 2.3 Abs Eosin <0.46 k/uL 0.11 Baso% % 0.8 Abs Baso <0.11 k/uL 0.04 Immature Gran % % 0.2 IMMATURE GRANS (ABS) <0.10 k/uL <0.03 NRBC /100 WBC 0.0 Absolute nRBC <0.01 k/uL <0.01 DTYPE Auto Protein, Total 6.3 - 8.0 g/dL 6.5 Albumin 3.9 - 4.9 g/dL 3.9 Calcium 8.5 - 10.2 mg/dL 9.0 Bilirubin, Total 0.2 - 1.3 mg/dL 0.9 Alkaline Phosphatase 38 - 113 U/L 60 AST 14 - 40 U/L 25 ALT 10 - 54 U/L 16 Glucose 74 - 99 mg/dL 102 (H) BUN 9 - 24 mg/dL 13 Creatinine 0.73 - 1.22 mg/dL 0.94 Sodium 136 - 144 mmol/L 141 Potassium 3.7 - 5.1 mmol/L 4.7 Chloride 97 - 105 mmol/L 107 (H) CO2 22 - 30 mmol/L 27 Anion Gap 9 - 18 mmol/L 7 (L) eGFR >=60 mL/min/1.73m 83 Cholesterol, Total <200 mg/dL 145 Triglyceride <150 mg/dL 113 HDL Cholesterol >39 mg/dL 42 Non HDL Cholesterol <130 mg/dL 103 Fasting Time hrs 12 VLDL Cholesterol <30 mg/dL 23 TC:HDL Ratio <5.10 3.45 LDL Cholesterol <100 mg/dL 80 LDL:HDL Ratio <2.54 1.90 Hep C Antibody IA Negative Negative ASSESSMENT/PLAN: 1. S/P CABG (coronary artery bypass graft) - ICD9: V45.81, ICD10: Z95.1 (primary diagnosis) Currently seeing Dr. Sinha at [facility] and [facility] Dr Garcia. His local software engineering project manager will be leaving the practice. He will need to reestablish with a software engineering project manager. He may continue with [place] [facility] or be seen locally here. - CONSULT TO CARDIOLOGY 2. Chronic idiopathic thrombocytopenia (HCC) - ICD9: 287.31, ICD10: D69.3 Stable, currently controlled, continue to monitor. 3. Encounter for immunization - ICD9: V03.89, ICD10: Z23 - TDAP VACCINE, AGE 7+ YR (ADACEL, BOOSTRIX) 4. Mixed hyperlipidemia - ICD9: 272.2, ICD10: E78.2 Continue with ezetimibe. Recommend a plant based diet such as Mediterranean diet with plenty of vegetables, fruits,whole grains, fish, chicken, turkey or plant proteins and routine exercise such as walking 5. Essential hypertension - ICD9: 401.9, ICD10: I10 controlled - Continue current medication(s) - Encouraged dietary sodium restriction/DASH diet - Recommended regular aerobic exercise. 6. Peptic ulcer - ICD9: 533.90, ICD10: K27.9 Continues with PPI daily, no current complaints. Continue unchanged. Continue to monitor 7. S/P drug eluting coronary stent placement - ICD9: V45.82, ICD10: Z95.5 6 mo follow up MD Brenda Rivas APRN.CNS Medical Decision Making: Problems: Moderate: 2+ stable chronic illnesses Risk: Low: Low risk from testing/treatment Medical Decision Making Level: 3 - Low [facility] Miscellaneous Notes* Telephone Encounter - Branden Sinha MD - 07/01/2022 10:21 AM EST 06/27/2022 - Echocardiogram - The left ventricle is normal in size. There is mild concentric left ventricular hypertrophy. Leftventricular systolic function is normal. EF = 57 5% (2D biplane) Grade I left ventricular diastolicdysfunction. Wall Motion: The basal anteroseptal segment is mildly hypokinetic. All remaining scored segments are normal. - The right ventricle is normal in size. Right ventricular systolic function is normal. - The left atrial cavity is mildly dilated. - There are no significant valvular abnormalities. AORTA The visualized aorta is normal in size. Measurements - Mid ascending aorta 3.3 cm. 06/20/2022 - Abdominal ultrasound Minimal dilatation of the proximal abdominal aorta. No infrarenal abdominal aortic aneurysm. Assessment: 1. No evidence of aortic aneurysm. 2. Preserved LV function. RedShelft message sent. Mauricio Sinha MD documented in this encounterChildren[facility] History of Present illness Narrative* Sherri Pierce RDMS - 06/20/2022 10:00 AM EST Radiology Service Progress Note PATIENT NAME: Mauro Carrillo DATE OF SERVICE: June 20, 2022 TIME: 10:30 AM PATIENT IDENTITY VERIFICATION COMPLETED USING TWO (2) IDENTIFIERS: Name and Date of confirmedby patient verbally. FALL SCREENING: Has the patient had 2 falls in the last year or 1 fall with injury or currently using an Ambulatory Assistive Device (Walker, Cane, Wheelchair, Crutches, etc.)? No PATIENT GENDER DATA: Male PATIENT RELEVANT IMPLANT DATA REVIEWED: Not Applicable RADIOLOGY DEPARTMENT: Ultrasound PERIPHERAL IV DATA: Not applicable SIGNED BY: Sherri Pierce RDMS RVT June 20, 2022 10:30 AM documented in this encounterChildren[facility] History of Present illness Narrative* Branden Sinha MD - 06/13/2022 11:30 AM EDT Images from the original note were not included. [facility] [place] Charo Leyva Department of Cardiovascular Medicine SECTION OF INTERVENTIONAL CARDIOLOGY OUTPATIENT VISIT DATE June 11, 2021 OUTPATIENT VISIT TYPE ESTABLISHED PRIMARY CARE PHYSICIAN: Amilcar Cbaral [address] [place] [address] REFERRING PHYSICIAN: Mauricio Sinha [address] [facility] [address] CHIEF COMPLAINT: Patient presents with: Recheck: 12 month HISTORY OF PRESENT ILLNESS: Mr. Carrillo is a 75 year old male with CAD and prior CABG and PCI who presents today for follow-upvisit. His past medical history includes CAD s/p 3V-CABG (TORRES-LAD, KAMLESH-RCA, SVG-Dg, 1986), BMS-o/pLCx (2001), ROSY-LMT (2014), as well as UGIB 2/2 PUD (2018) in setting of DAPT. Today he reports that he is doing well over the past 12 months. If anything he feel he is more active than he was the year prior. 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 No chest pain, no shorntess of breath. He has never had CP. SHIELDS is his anginal equivalent. Tolerating his medications well. He walks 2.5 miles at 4 mph 5-6 days per week without SHIELDS. He lives alone in [place]. His 1.5 years ago due to cancer. No PND, orthopnea, edema No palpitations No syncope, presyncope Points out history of abdominal aortic aneurysm in father and paternal uncle. PAST CARDIAC HISTORY: 07/23/1986 - [place] - symptoms were SOB after chasing a calf at work (at [employer]). 08/1986 - CABG - TORRES to LAD, KAMLESH to RCA, SVG to diagonal 2001 - abnormal stress test 05/24/2002 - Cath by me - severe CAD, patent grafts. Underwent PCI with BMS to ostial and proximal LCX. 2006 - seen by me with abnormal screen stress test - mild inferior ischemia; no cath performed given absence of ischemic symptoms. 2014 - noted SHIELDS on climbing hills or inclines as part of his regular walk, relieved with rest in ~5 minutes, for which he has reduced his exercise level or activities. Never had in past, and he walks this regularly. 10/31/2014 - Stress test at OSH - performed for patient's complaints of SHIELDS. No chest pain. 9:00 Nathan, 10 METS, patient reports dyspnea during stress test. Nuclear - Inferior scar, marian-infarct ischemia vs attenuation. LVEF 52%. 12/02/2014 - Cardiac catheterization and PCI by me: LM - distal eccentric 80-90% in-stent restenosis LAD - 100% ostial LCX - stents in proximal LCX, mid LCX into OM, and PL widely patent. RCA - small, 100% diffuse mid TORRES to LAD - widely patent, fills large LAD KAMLESH (in situ) to distal RCA - widely patent SVG to Diagonal - widely patent Underwent PCI of the distal LM with Promus Premier 3.5 x 12 mm everolimus eluting stent. 05/09/2017 - Stress Nuclear at OSH - routine, no symptoms Nathan 10:15, Stage IV, 12 METS 111% APMHR, ECG - RBBB, no ischemic changes Rare PVCs, couplet Terminated due to dyspnea Nuclear - inferoseptal and basal inferior scar with mid inferoseptal and inferior marian-infarct ischemia. LVEF 59% My impression at that time: No indication for catheterization in absence of symptoms. His prior stress tests have shown varying degrees of scar + ischemia in inferior distribution, despite patent graft (KAMLESH) to RCA in 11/2014. Certainly, if he were to develop his typical dyspnea symptom (which hasbeen a reliable indicator of ischemia in the past), would proceed with catheterization. 05/12/2018 - awoke with diaphoresis, concerned he was having a heart attack. Taken to ED, found to be anemic, had hematemesis. EGD at OSH showed large clot in stomach. Transfused 1 unit PRBc, transferred to [facility]. 05/14/2018 - EGD showed gastric ulcers and duodenitis, no longer bleeding. Discharge on Protonix, with discontinued clopidogrel, continued aspirin. 06/01/2018 - Stress Nuclear in [place] Nathan 7:00, Stage 3, 107% APMHR, 8 METS ECG - baseline RBBB, exercise 1-[address] depression in I, L, V2 Nuclear - mid inferoseptal/basal, mid inferior perfusion changes appearing compatible with an areaof previous [place] LVEF 59% 07/06/2018 - EGD as [facility] - healed gastric ulcers, no bleeding. 07/19/2018 - Capsule endoscopy - normal 06/07/2019 - saw me in [facility] - Clopidogrel has not been restarted. No further GI bleeding. Hemoglobin now above 13 mg/dL. Exercise tolerance preserved. No chest pain or SOB. 06/08/2020 - saw me in [facility] - no ischemic symptoms. Saw GI this year - felt EGD not necessary this year, reduced Protonix to 20 mg daily 06/11/2021 - saw me in [facility] - no ischemic symptoms. LDL 73, atorvastatin increased from 40 to 80 mg daily. 10/26/2021 - saw local software engineering project manager in [place] who ordered repeat stress test for surveillance (patient asymptomatic) 10/28/2021 - OSH exercise SPECT Mild marian-infarct ischemia in the basal inferior/inferoseptal segments. LVEF 60%. PAST MEDICAL HISTORY Diagnosis Date Cardiac dysrhythmia, unspecified 07/30/2007 history of paroxysmal atrial and ventricular complexes and nonsustained ventricular tachycardia Coronary atherosclerosis of unspecified type of vessel, soboba or graft 07/30/2007 [place] Date: 1985. CABG Date: 1986 - left internal mammary artery to left anterior descending, right internal mammary artery to right coronary artery, and saphenous vein graft to diagonal artery. PCI Date: 05/23/02 - stents in his ostial and proximal circumflex and in his obtuse marginal branch PTCA Date: 05/23/02 - posterior lateral branch COVID-19 07/2021 History of bleeding ulcers History of ventricular tachycardia 04/05/2011 Dr Latif [facility] Pure hypercholesterolemia 03/22/2005 Unspecified cardiovascular disease 03/22/2005 [facility]--Dr. Latif PAST SURGICAL HISTORY Procedure Laterality Date ANGIOPLASTY 2001 1 angioplasty COLONOSCOPY FLX DX W/COLLJ SPEC WHEN PFRMD 09/14/2007 Very long/lax colon PAST SURGICAL HISTORY OF 1986 triple bypass surgery heart at [facility] PAST SURGICAL HISTORY OF 2010 Squemous Cell- Face removed PAST SURGICAL HISTORY OF 2015- Dr Mclaughlin BCC face REMV CATARACT EXTRACAP,INSERT LENS Bilateral STENTS (SPECIFY) 2001, 2014 3 stents SOCIAL HISTORY Social History Tobacco Use Smoking status: Former Packs/day: 1.00 Years: 25.00 Pack years: 25.00 Types: Cigarettes Quit date: 07/23/1986 Years since quittin.9 Smokeless tobacco: Never Vaping Use Vaping Use: Never used Substance Use Topics Alcohol use: Yes Alcohol/week: 1.7 standard drinks Comment: 4-5 beers a year Drug use: No FAMILY HISTORY Problem Relation Age of Onset Heart Mother Coronary Artery Disease Mother age 66 Heart Father Coronary Artery Disease Father age 82 other (Aortic Aneurysm) Father AAA-- from complications of surgery for repair Diabetes Paternal Grandfather None Sister None Sister other (Aortic aneurysm) Paternal Uncle ALLERGIES: ALLERGIES No Known Allergies MEDICATIONS: pantoprazole DR (PROTONIX) 20 mg tablet Take 1 tablet by mouth once daily. atorvastatin (LIPITOR) 80 mg tablet Take 1 tablet by mouth once daily. As directed nitroglycerin sublingual (NITROSTAT) 0.4 mg SL tablet Dissolve 1 tablet under the tongue as needed for Chest Pain. If no pain relief call 911. clopidogrel (PLAVIX) 75 mg tablet Take 1 tablet by mouth once daily. ezetimibe (ZETIA) 10 mg tablet Take 1 tablet by mouth once daily. metoprolol succinate ER (TOPROL XL) 25 mg 24 hr tablet Take 1 tablet by mouth once daily. Flaxseed Oil 1,000 mg cap Take 1 capsule by mouth once daily. coenzyme Q10 (COENZYME Q-10) 100 mg cap capsule Take 100 mg by mouth once daily. Lutein 6 mg ORAL Cap Take one(1) tablet daily. REVIEW OF SYSTEMS: GENERAL: Negative for: Weight loss or gain, Fever or Chills, Weakness and Sleep difficulties. HEENT: Negative for: Headache, Impaired Vision, Glasses, Hearing Impairment, Ringing in Ears, Nosebleeds, Poor dental care, Bleeding Gums, Dentures NECK: Negative for: Swelling, Pain, Stiffness RESPIRATORY: Negative for: Cough, Blood in Sputum, Shortness of breath, Wheezing, Apnea GASTROINTESTINAL: Negative for: Trouble swallowing, Heartburn, Change in bowel habits, Blood in stool, Dark black stools MUSCULOSKELETAL: Negative for: Muscle or joint pain, Stiffness , Joint swelling NEUROLOGIC/PSYCHIATRIC: Negative for: Weakness, Paralysis, Numbness, Tingling, Tremor, Nervousness,Depressed mood, Memory loss SKIN: Negative for: Rashes, Itching HEMATOLOGICAL/LYMPHATIC: Negative for: Easy bruising , Easy bleeding ENDOCRINE: Negative for: Heat or cold intolerance, Excessive sweating, Frequent urination, Frequentthirst PHYSICAL EXAMINATION: BP 121/74 Pulse 72 Ht 6' 0 (1.83m) Wt 169 lb 9.6 oz (76.9kg) SpO2 98% BMI 23.00 kg/(m^2). General appearance: well appearing, in no acute distress, alert Skin: skin color, texture, turgor normal, no rashes or lesions Head: normal Neck: neck supple, no adenopathy; thyroid symmetric, normal size Lungs: lungs clear to auscultation, no wheezing or rhonchi Heart: Carotids full without bruits. PMI non-displaced. RRR. Normal S1 and S2, without S3 or S4. Nomurmur or rubs. Abdomen: Normal abdominal exam, Abdomen soft, non-tender. Bowel sounds normal. No masses, organomegaly Extremities: Extremities normal. No deformities or skin discoloration. Good capillary refill. No edema. Peripheral pulses: Normal Neuro: Gait normal. Sensation and muscle strength grossly intact. CARDIOVASCULAR MEDICINE TESTING: Laboratory Testing: See Addendum to this Note I have personally reviewed the Laboratory Testing. IMPRESSION: Mr. Carrillo is a 75 year old male with CAD, prior CABG and PCI 1. CAD - s/p CABG x 3 in in 1986 (Dr. Rider)- TORRES to LAD, KAMLESH to RCA, SVG to diagonal S/p cath and PCI by me in 2001 - grafts patent, underwent bare metal stent placement to ungrafted LCX S/p cath and PCI by my on 12/02/2014 - grafts and multiple stents in LCX all patent. LMT with severefocal distal in-stent restenosis. Underwent PCI of the LMT in-stent restenosis with drug eluting stent. On clopidogrel monotherapy 2. Preserved LV function - LVEF 60% by exercise SPECT 10/28/21. 3. No ischemic symptoms. He has never had chest pain. His anginal equivalent has been SHIELDS, which completely resolved after PCI in 11/2014. 4. Outside stress nuclear 10/28/2021 demonstrating inferior scar and mild periinfarct ischemi similar to study in 06/01/2018 and previously in 04/2017. He had similar finding on stress test in 2014, but catheterization at that time showed him to be completely revascularized in that inferior distribution (KAMLESH to RCA was widely patent). His PCI performed of the LM into the LCX was NOT in the distribution of the apparent inferior ischemia. To my knowledge, he has not had an interim stress test at any point showing resolution of the inferior changes that had been seen in 2014. I am planning stress testing no more frequently every 5 years 5. Hyperlipidemia - on atorvastatin 80 mg, ezetimibe 10 mg daily. Lipid panel 10/26/21 with TC 143, TG 91, HDL 51, LDL 74. 6. S/p upper GI bleed / gastric ulcers - 05/12/2018. No recurrence Followed by GI. On clopidogrel monotherapy - aspirin stopped. 7. HTN - controlled in office today. Home measurements 100-110s/60-70s. 8. FHx aortic aneurysm - abdominal aortic ultrasound normal in 2017. PLAN AND RECOMMENDATIONS: 1. Follow-up repeat lipid panel. 2. Continue current Rx. 3. He is ordered for repeat abdominal aortic aneurysm ultrasound. Will schedule (number for [facility] provided). Will also obtain TTE to screen for ascending aneurysm and for formal biventricular assessment given his known history of severe CAD. Gagan Garcia MD Fellow Physician, PGY-5 [facility] I have reviewed the documentation obtained and documented by the Fellow. I have personally performed a face to face assessment of the patient and have personally participated on the zhou components ofthe history, exam and medical decision making. I have discussed the case and management of the patient's care. Mauricio Sinha MD ADDENDUM Component Latest Ref Rng & Units 06/13/2022 WBC 3.70 - 11.00 k/uL 4.71 RBC 4.20 - 6.00 m/uL 4.79 Hemoglobin 13.0 - 17.0 g/dL 14.8 Hematocrit 39.0 - 51.0 % 45.0 MCV 80.0 - 100.0 fL 93.9 MCH 26.0 - 34.0 pg 30.9 MCHC 30.5 - 36.0 g/dL 32.9 RDW-CV 11.5 - 15.0 % 13.2 Platelet Count 150 - 400 k/uL 131 (L) MPV 9.0 - 12.7 fL 11.5 Neut% % 55.7 Abs Neut (ANC) 1.45 - 7.50 k/uL 2.62 Lymph% % 32.3 Abs Lymph 1.00 - 4.00 k/uL 1.52 Schley% % 8.7 Abs Schley <0.87 k/uL 0.41 Eosin% % 2.3 Abs Eosin <0.46 k/uL 0.11 Baso% % 0.8 Abs Baso <0.11 k/uL 0.04 Immature Gran % % 0.2 IMMATURE GRANS (ABS) <0.10 k/uL <0.03 NRBC /100 WBC 0.0 Absolute nRBC <0.01 k/uL <0.01 DTYPE Auto Protein, Total 6.3 - 8.0 g/dL 6.5 Albumin 3.9 - 4.9 g/dL 3.9 Calcium 8.5 - 10.2 mg/dL 9.0 Bilirubin, Total 0.2 - 1.3 mg/dL 0.9 Alkaline Phosphatase 38 - 113 U/L 60 AST 14 - 40 U/L 25 ALT 10 - 54 U/L 16 Glucose 74 - 99 mg/dL 102 (H) BUN 9 - 24 mg/dL 13 Creatinine 0.73 - 1.22 mg/dL 0.94 Sodium 136 - 144 mmol/L 141 Potassium 3.7 - 5.1 mmol/L 4.7 Chloride 97 - 105 mmol/L 107 (H) CO2 22 - 30 mmol/L 27 Anion Gap 9 - 18 mmol/L 7 (L) eGFR >=60 mL/min/1.73m 83 Cholesterol, Total <200 mg/dL 145 Triglyceride <150 mg/dL 113 HDL Cholesterol >39 mg/dL 42 Non HDL Cholesterol <130 mg/dL 103 Fasting Time hrs 12 VLDL Cholesterol <30 mg/dL 23 TC:HDL Ratio <5.10 3.45 LDL Cholesterol <100 mg/dL 80 LDL:HDL Ratio <2.54 1.90 Assessment: 1. Hyperlipidemia - LDL acceptable although not optimal at 80 mg/dL. He is already on maximum dose statin and ezetimibe. Abdominal ultrasound scheduled 06/20/2022. Echocardiogram scheduled 06/27/2022. Mauricio Sinha MD CONTACT INFORMATION: Mauricio Sinha M.D. Section of Interventional Cardiology Charo Leyva Department of Cardiovascular Medicine Heart and Vascular [facility] Desk [place] [address] Office - [phone] extension [phone] Office Appointments: [phone] extension [phone] documented in this encounterChildren[facility]22 Instructions* Patient Instructions* Brenda Santizo APRN.CNS - 05/03/2022 2:09 PM EDT Check lipids, CBC, CMP - labs at your earliest convenience. documented in this encounterChildren'S [facility]-20-2022 History of Present illness Narrative* Brenda Santizo APRN.CNS - 05/03/2022 2:00 PM EDT SUBJECTIVE: HEPATITIS C SCREENING Never done SHINGRIX VACCINE(2 of 3) due on 02/05/2008 ADVANCE DIRECTIVE DISCUSSION Never done COVID-19 VACCINE(4 - Booster for Pfizer series) due on 10/29/2021 DEPRESSION SCREENING due on 01/13/2022 INFLUENZA(1) due on 04/14/2022 HPI Mauro Carrillo is a 76 year old male. PMH signfiicant for ACTIVE PROBLEM LIST Hyperlipidemia Enthesopathy of Ankle and Tarsus, Unspecified Coronary Atherosclerosis Cardiac Dysrhythmia, Unspecified Essential Hypertension Old Myocardial Infarction Pvc (Premature Ventricular Contraction) S/P Drug Eluting Coronary Stent Placement S/P Cabg (Coronary Artery Bypass Graft) Chronic Idiopathic Thrombocytopenia (Hcc) Bcc (Basal Cell Carcinoma of Skin) Basal Cell Carcinoma of Left Lower Eyelid Peptic Ulcer Atherosclerosis of [place] Coronary Artery of [place] Heart Without Angina Pectoris Pure Hypercholesterolemia HPI excerpted from previous visit: ..seen for routine follow up. PMH is significant for CAD, s/p CABG, PCI, HLP, HTN, PUD, chronic idiopathic thrombocytopenia. He notes some stress as primary caregiver for his for the last 3 months for life before passing away. She was bedridden and he was providing total care. Notes her skin some decrease in stress since she . Notes and resumed walking, currently 2 to 3 miles. No symptomatic complaints with this activity. Notes seen by cardiology yesterday. Stable from a cardiac standpoint. Weight is decreased over the last year. Eating a healthy diet.. Notes his chest pain equivalent is shortness of breath, no recent experience of this. He has completed vaccination for covid19. Today reports in his usual state of health. Walking 2.5 miles, down from 4 miles daily due to some hip pain at the longer distance. CAD: Follows with Dr. Sinha and Dr. Latif. CABG at [facility] with Dr. Rider. Labs [facility] October 2021 HTN: Mr. Carrillo indicates that he is without headache, chest pain, palpitations, dyspnea, peripheral edema, orthopnea, fatigue and PND. Last 14 Encounter BP Readings: Date: BP: 05/03/2022 118/80 06/11/2021 112/79 01/15/2021 112/70 06/08/2020 135/56 02/19/2020 143/69 06/07/2019 126/72 02/11/2019 110/60 09/17/2018 125/69 08/30/2018 110/62 08/24/2018 110/62 07/31/2018 110/68 06/04/2018 117/66 05/29/2018 115/59 05/19/2018 112/64 Hyperlipidemia. Mr. Carrillo reports doing well on current therapy, no AEs noted. Notes he sees Dr Chastity Romero for excess cerumen removal, has not seen for a couple of years.Notes some decrease in hearing Prior history ulcer, not currently on PPI, no current NSAID use. Notes occasional GERD symptoms in the evening helped with Tums. No abdominal pain nausea vomiting BRBPR black or tarry stools. Review of Systems Constitutional: Negative. Respiratory: Negative. Cardiovascular: Negative. Gastrointestinal: Negative. Objective BP 118/80 Pulse 73 Resp 16 Ht 182.9 cm (6' 0.01 ) Wt 76.7 kg (169 lb) SpO2 98% BMI 22.92 kg/m Physical Exam Vitals and nursing note reviewed. HENT: Head: Normocephalic and atraumatic. Right Ear: There is impacted cerumen. Left Ear: There is impacted cerumen. Eyes: Conjunctiva/sclera: Conjunctivae normal. Neck: Thyroid: No thyroid tenderness. Vascular: No carotid bruit. Cardiovascular: Rate and Rhythm: Normal rate and regular rhythm. Pulses: Carotid pulses are 2+ on the right side and 2+ on the left side. Radial pulses are 2+ on the right side and 2+ on the left side. Pulmonary: Effort: Pulmonary effort is normal. Breath sounds: Normal breath sounds. Abdominal: General: Bowel sounds are normal. Musculoskeletal: Right lower leg: No edema. Left lower leg: No edema. Skin: General: Skin is warm and dry. Neurological: General: No focal deficit present. ALLERGIES No Known Allergies Medications atorvastatin (LIPITOR) 80 mg tablet Take 1 tablet by mouth once daily. As directed nitroglycerin sublingual (NITROSTAT) 0.4 mg SL tablet Dissolve 1 tablet under the tongue as needed for Chest Pain. If no pain relief call 911. clopidogrel (PLAVIX) 75 mg tablet Take 1 tablet by mouth once daily. ezetimibe (ZETIA) 10 mg tablet Take 1 tablet by mouth once daily. metoprolol succinate ER (TOPROL XL) 25 mg 24 hr tablet Take 1 tablet by mouth once daily. Flaxseed Oil 1,000 mg cap Take 1 capsule by mouth once daily. coenzyme Q10 (COENZYME Q-10) 100 mg cap capsule Take 100 mg by mouth once daily. Lutein 6 mg ORAL Cap Take one(1) tablet daily. pantoprazole DR (PROTONIX) 20 mg tablet Take 1 tablet by mouth once daily. PAST MEDICAL HISTORY Diagnosis Date Cardiac dysrhythmia, unspecified 07/30/2007 history of paroxysmal atrial and ventricular complexes and nonsustained ventricular tachycardia Coronary atherosclerosis of unspecified type of vessel, [place] or graft 07/30/2007 [place] Date: 1985. CABG Date: 1986 - left internal mammary artery to left anterior descending, right internal mammary artery to right coronary artery, and saphenous vein graft to diagonal artery. PCI Date: 05/23/02 - stents in his ostial and proximal circumflex and in his obtuse marginal branch PTCA Date: 05/23/02 - posterior lateral branch History of bleeding ulcers History of ventricular tachycardia 04/05/2011 Dr Latif [facility] Pure hypercholesterolemia 03/22/2005 Unspecified cardiovascular disease 03/22/2005 [facility]--Dr. Latif Social History Tobacco Use Smoking status: Former Packs/day: 1.00 Years: 25.00 Pack years: 25.00 Types: Cigarettes Quit date: 07/23/1986 Years since quittin.8 Smokeless tobacco: Never Vaping Use Vaping Use: Never used Substance Use Topics Alcohol use: Yes Alcohol/week: 1.7 standard drinks Comment: 4-5 beers a year Drug use: No ASSESSMENT/PLAN: 1. Routine medical exam - ICD9: V70.0, ICD10: Z00.00 (primary diagnosis) - Counseled on healthy diet and regular exercise - Ultrasound screening for AAA 2. Special screening examination for viral disease - ICD9: V73.99, ICD10: Z11.59 - HEP C AB IA W/CONF SCRN 3. Need for shingles vaccine - ICD9: V04.89, ICD10: Z23 - SHINGRIX PRINTED PHARMACY INSTRUCTIONS 4. Encounter for immunization - ICD9: V03.89, ICD10: Z23 in office today - [employer] COVID-19 BIVALENT BOOSTER VACCINE, AGE 12+ YR - INFLUENZA SEASONAL QUADRIVALENT HIGH DOSE AGE 65+ 5. Chronic idiopathic thrombocytopenia (HCC) - ICD9: 287.31, ICD10: D69.3 recheck CBC 6. Other hyperlipidemia - ICD9: 272.4, ICD10: E78.49 Recommend a plant based diet such as Mediterranean diet with plenty of vegetables, fruits,whole grains, fish, chicken, turkey or plant proteins and routine exercise such as walking Continue statin per cardiology - LIPID PANEL BASIC 7. Essential hypertension - ICD9: 401.9, ICD10: I10 Stable, currently controlled, continue to monitor. Endorse dash diet, routine exercise and maintenance of weight - COMP METABOLIC PANEL - CBC + DIFF 8. S/P CABG (coronary artery bypass graft) - ICD9: V45.81, ICD10: Z95.1 Following with cardiology - LIPID PANEL BASIC 9. S/P drug eluting coronary stent placement - ICD9: V45.82, ICD10: Z95.5 - LIPID PANEL BASIC 10. Basal cell carcinoma (BCC), unspecified site - ICD9: 173.91, ICD10: C44.91 follow up with dermatology as indicated 11. Family history of abdominal aortic aneurysm (AAA) - ICD9: V17.49, ICD10: Z82.49 Last US 2017, recheck, no current abdominal pain - US SCREENING FOR AAA 12. Pure hypercholesterolemia - ICD9: 272.0, ICD10: E78.00 13. Peptic ulcer - ICD9: 533.90, ICD10: K27.9 Notes refuls present since stopping PPI. Is helped with Tums. Endorse resuming Protonix . 14. 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 - ICD9: 414.01, ICD10: I25.10 Currently without CP, SOBOE, good exercise tolerance 6-9 mo follow up MD Brenda Rivas APRN.SUBSTATION DESIGNER Medical Decision Making: Problems: Moderate: 2+ stable chronic illnesses Data: Unique test(s) ordered: 3+ Risk: Moderate: Drug management Medical Decision Making Level: 4 - Moderate documented in this encounterChildren[facility]09-29-2018 History of Past illness Narrative* Problem Noted Date Resolved Date Hematemesis 05/12/2018 05/15/2018 Hypertension 12/02/2014 01/23/2018 History of ventricular tachycardia 04/05/2011 08/02/2017 [facility] Postsurgical aortocoronary bypass status 011 08/02/2017 Overview: [facility] Tobacco use disorder 11/06/2008 12/25/2009 Overview: About a 30 pack year from age 18 to 38: quit at age 40 on the day of his [place] US 10-09 showed no aneurysmal dilatation documented as of this encounter (statuses as of 12/07/2021) [facility] History of Past illness Narrative* Problem Noted Date Resolved Date Hematemesis 05/12/2018 05/15/2018 Hypertension 12/02/2014 01/23/2018 History of ventricular tachycardia 04/05/2011 08/02/2017 Overview: [facility] Postsurgical aortocoronary bypass status 011 08/02/2017 Overview: [facility] Tobacco use disorder 11/06/2008 12/25/2009 Overview: About a 30 pack year from age 18 to 38: quit at age 40 on the day of his [place] US 10-09 showed no aneurysmal dilatation documented as of this encounter (statuses as of 05/03/2022) [facility] History of Past illness Narrative* Problem Noted Date Resolved Date Hematemesis 05/12/2018 05/15/2018 Hypertension 12/02/2014 01/23/2018 History of ventricular tachycardia 04/05/2011 08/02/2017 Overview: Dr [facility] Postsurgical aortocoronary bypass status 011 08/02/2017 Overview: [facility] Tobacco use disorder 11/06/2008 12/25/2009 Overview: About a 30 pack year from age 18 to 38: quit at age 40 on the day of his [place] US 10-09 showed no aneurysmal dilatation documented as of this encounter (statuses as of 06/14/2022) [facility] History of Past illness Narrative* Problem Noted Date Resolved Date Hematemesis 05/12/2018 05/15/2018 Hypertension 12/02/2014 01/23/2018 History of ventricular tachycardia 04/05/2011 08/02/2017 Overview: [facility] Postsurgical aortocoronary bypass status 011 08/02/2017 Overview: [facility] Tobacco use disorder 11/06/2008 12/25/2009 Overview: About a 30 pack year from age 18 to 38: quit at age 40 on the day of his [place] US 10-09 showed no aneurysmal dilatation documented as of this encounter (statuses as of 07/01/2022) [facility] of Past illness Narrative* Problem Noted Date Resolved Date Hematemesis 05/12/2018 05/15/2018 Hypertension 12/02/2014 01/23/2018 History of ventricular tachycardia 04/05/2011 08/02/2017 Overview: [facility] Postsurgical aortocoronary bypass status 011 08/02/2017 Overview: [facility] Tobacco use disorder 11/06/2008 12/25/2009 Overview: About a 30 pack year from age 18 to 38: quit at age 40 on the day of his [place] US 10-09 showed no aneurysmal dilatation documented as of this encounter (statuses as of 11/24/2022) [facility] of Past illness Narrative* Problem Noted Date Diagnosed Date Resolved Date Hematemesis 05/12/2018 05/15/2018 Hypertension 12/02/2014 01/23/2018 History of ventricular tachycardia 04/05/2011 08/02/2017 Overview: [facility] Postsurgical aortocoronary bypass status 04/05/2011 08/02/2017 Overview: [facility] Tobacco use disorder 11/06/2008 010 Overview: About a 30 pack year from age 18 to 38: quit at age 40 on the day of his [place] US 10-09 showed no aneurysmal dilatation documented as of this encounter (statuses as of 06/18/2023) [facility] Diagnosis S/P CABG (coronary artery bypass graft)- Primary Postsurgical aortocoronary bypass status Acute ischemic heart disease, unspecified (HCC) documented in this encounter [facility]* Diagnosis Routine medical exam- Primary Routine general medical examination at a health care facility Special screening examination for viral disease Special screening examination for unspecified viral disease Need for shingles vaccine Need for prophylactic vaccination and inoculation against other viral diseases Encounter for immunization Need for other specified prophylactic vaccination against single bacterial disease Chronic idiopathic thrombocytopenia (HCC) Immune thrombocytopenic purpura Other hyperlipidemia Essential hypertension Unspecified essential hypertension S/P CABG (coronary artery bypass graft) Postsurgical aortocoronary bypass status S/P drug eluting coronary stent placement Postsurgical percutaneous transluminal coronary angioplasty status Basal cell carcinoma (BCC), unspecified site Family history of abdominal aortic aneurysm (AAA) Pure hypercholesterolemia Peptic ulcer Peptic ulcer, unspecified site, unspecified as acute or chronic, without mention of hemorrhage, perforation, or obstruction 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 documented in this encounter [facility]* Diagnosis 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- Primary Mixed hyperlipidemia Essential hypertension Unspecified essential hypertension S/P CABG (coronary artery bypass graft) Postsurgical aortocoronary bypass status S/P drug eluting coronary stent placement Postsurgical percutaneous transluminal coronary angioplasty status Family history of aortic aneurysm Family history of other cardiovascular diseases documented in this encounter [facility]* Diagnosis 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- Primary documented in this encounter [facility]* Diagnosis S/P CABG (coronary artery bypass graft)- Primary Postsurgical aortocoronary bypass status Chronic idiopathic thrombocytopenia (HCC) Immune thrombocytopenic purpura Encounter for immunization Need for other specified prophylactic vaccination against single bacterial disease Mixed hyperlipidemia Essential hypertension Unspecified essential hypertension Peptic ulcer Peptic ulcer, unspecified site, unspecified as acute or chronic, without mention of hemorrhage, perforation, or obstruction S/P drug eluting coronary stent placement Postsurgical percutaneous transluminal coronary angioplasty status documented in this encounter [facility]* Diagnosis Family history of abdominal aortic aneurysm (AAA) documented in this encounter [facility]* Diagnosis 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 S/P CABG (coronary artery bypass graft) Postsurgical aortocoronary bypass status documented in this encounter [facility] for referral (narrative)* Diagnostic Procedure Only (Routine) - Pending Review Specialty Diagnoses / Procedures Referred By Daxa t Referred To Contact US IMAGING Diagnoses Family history of abdominal aortic aneurysm (AAA) Procedures US SCREENING FOR AAA (2017) ABDOMINAL AORTA REAL TIME SCREEN STUDY AAA Brenda Santizo APRN.CNS [address] [place] [address] Us Imaging Referral ID Status Reason Start Date Expiration Date Visits Requested Visits Authorized [id number] Pending Review Auto-Generat ed Referral 05/03/2022 06/02/[address] [facility] for referral (narrative)* Outpatient Procedure (Routine) - Authorized Specialty Diagnoses / Procedures Referred By Daxa fuentes Referred To [facility] Diagnoses 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 Essential hypertension S/P CABG (coronary artery bypass graft) Family history of aortic aneurysm Procedures ECHO ECHO TTHRC R-T 2D W/WOM-MODE COMPL SPEC&COLR D Branden Sinha MD [address], [facility] [place] [address] [place] [address] Heart And Vascular [place] [address] Referral ID Status Reason Start Date Expiration Date Visits Requested Visits Authorized [id number] Authorized Auto-Generat ed Referral 06/13/[address] [facility] for referral (narrative)* Diagnostic Procedure Only (Routine) - Closed Specialty Diagnoses / Procedures Referred By Daxa t Referred To Contact US IMAGING Diagnoses Family history of abdominal aortic aneurysm (AAA) Procedures US SCREENING FOR AAA (2017) US ABDOMINAL AORTA REAL TIME SCREEN STUDY AAA Brenda Santizo APRN.CNS [address] [place] [address] Us Imaging [place] [address] Referral ID Status Reason Start Date Expiration Date V isits Requested Visits Authorized [id number] Closed Auto-Generate d Referral 05/03/2022 06/02/2023 [facility] Diagnostic Procedure Only (Routine) - Closed Specialty Diagnoses / Procedures Referred By Daxa fuentes Referred To Contact MOLECULAR & FUNCTIONAL IMAGING Diagnoses 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 S/P CABG (coronary artery bypass graft) Procedures NM PET/CT CARDIAC PERF REST/STRESS MYOCRD IMG PET PRFUJ TRAIN CONDUCTOR STD RST & STRS CNCRNT CT Branden Sinha MD [address] [facility] [address] [place] [id number] Molecular & Functional Imaging [address] [place] [address] Referral ID Status Reason Start Date Expiration Date V isits Requested Visits Authorized [id number] Closed Auto-Generate d Referral 06/12/2023 07/11/2024 1 1 [facility] Summary Purpose Family History No Family History Records FoundNo Family History Records Found Advance Directives No Advanced Directives Records FoundDocuments on File Type Date Recorded Patient Lard Tub Washer Expl anation Advance Directive(s) 05/12/2018 9:31 PM Advance Directive(s) 02/28/2018 9:40 AM Advance Directive(s) 01/30/2017 12:46 PM Advance Directive(s) 12/30/2015 11:40 AM Documents on File Type Date Recorded Patient Lard Tub Washer Expl anation Advance Directive(s) 01/30/2017 12:46 PM Documents on File Type Date Recorded Patient Lard Tub Washer Expl anation Advance Directive(s) 01/30/2017 12:46 PM Reason for Referral Specialty Diagnoses / Procedures Referred By Contac t Referred To Contact Cardiology Diagnoses S/P CABG (coronary artery bypass graft) Procedures CONSULT TO CARDIOLOGY OFFICE/OUTPATIENT [facility] MDM 60-74 MINUTES Brenda Santizo, EXTRACTIONS TECHNICIAN.SUBSTATION DESIGNER [address] [facility] [place] [address] Referral ID Status Reason Start Date Expiration Date Visits Requested Visits Authorized [id number] Authorized PCP Requested Referral 12/06/2022 12/06/2023 1 1 Additional Source Comments (unrecognized sect ion and content) No Status Records FoundNo Status Records Found INFORMATION SOURCE (unrecogn ized section and content) DATE CREATED AUTHOR AUTHOR'S ORGANIZ ATION 08/13/2023 [facility] Source Comments (unrecognize d section and content) In the event this informatio n is protected by the Federal Confidentiality of Alcohol and Drug Abuse Patient Records regulations: The Federal rules restrict any use of the information to criminally investigate or prosecute any alcohol or drug abuse patient.[facility] RehabilitationIn the event this information is protected by the Federal Confidentiality of Alcohol and Drug Abuse Patient Records regulations: The Federal rules restrict any use of the information to criminally investigate or prosecute any alcohol or drug abuse patient.[facility] RehabilitationIn the event this information is protected by the Federal Confidentiality of Alcohol and Drug Abuse Patient Records regulations: The Federal rules restrict any use of the information to criminally investigate or prosecute any alcohol or drug abuse patient.[facility] RehabilitationIn the event this information is protected by the Federal Confidentiality of Alcohol and Drug Abuse Patient Records regulations: The Federal rules restrict any use of the information to criminally investigate or prosecute any alcohol or drug abuse patient.[facility] RehabilitationIn the event this information is protected by the Federal Confidentiality of Alcohol and Drug Abuse Patient Records regulations: The Federal rules restrict any use of the information to criminally investigate or prosecute any alcohol or drug abuse patient.[facility] RehabilitationIn the event this information is protected by the Federal Confidentiality of Alcohol and Drug Abuse Patient Records regulations: The Federal rules restrict any use of the information to criminally investigate or prosecute any alcohol or drug abuse patient.[facility] RehabilitationIn the event this information is protected by the Federal Confidentiality of Alcohol and Drug Abuse Patient Records regulations: The Federal rules restrict any use of the information to criminally investigate or prosecute any alcohol or drug abuse patient.[facility] RehabilitationIn the event this information is protected by the Federal Confidentiality of Alcohol and Drug Abuse Patient Records regulations: The Federal rules restrict any use of the information to criminally investigate or prosecute any alcohol or drug abuse patient.[facility] RehabilitationIn the event this information is protected by the Federal Confidentiality of Alcohol and Drug Abuse Patient Records regulations: The Federal rules restrict any use of the information to criminally investigate or prosecute any alcohol or drug abuse patient.[facility] RehabilitationIn the event this information is protected by the Federal Confidentiality of Alcohol and Drug Abuse Patient Records regulations: The Federal rules restrict any use of the information to criminally investigate or prosecute any alcohol or drug abuse patient.[facility] RehabilitationIn the event this information is protected by the Federal Confidentiality of Alcohol and Drug Abuse Patient Records regulations: The Federal rules restrict any use of the information to criminally investigate or prosecute any alcohol or drug abuse patient.[facility] Care Teams (unrecognized sec tion and content) Accounts Adjustable Clerk Relationship Specialty Start Date End Date Amilcar Cabral MD [address] [place], [place] [id number] PCP - General 12/25/09 Lev Latif [address] [place] [address] Referring Cardiology 06/04/18 Branden Sinha MD [address], [place] [address] [place] [address] Primary Staff Physician Cardiology 10/30/18 Accounts Adjustable Clerk Relationship Specialty Start Date End Date Amilcar Cabral MD [address] [place] [address] PCP - General 12/25/09 Lev Latif [address] [place] [address] Referring Cardiology 06/04/18 Branden Sinha MD [address], [place] [address] [place] [address] Primary Staff Physician Cardiology 10/30/18 Accounts Adjustable Clerk Relationship Specialty Start Date End Date Amilcar Cabral MD [address] [place], [place] [id number] PCP - General 12/25/09 Lev Latif [address] [place] [address] Referring Cardiology 06/04/18 Branden Sinha MD [address], [place] [address] Primary Staff Physician Cardiology 10/30/18 Accounts Adjustable Clerk Relationship Specialty Start Date End Date Amilcar Cabral MD [address] [place] [address] PCP - General 12/25/09 Lev Latif [address] [place] [address] Referring Cardiology 06/04/18 Branden Sinha MD [address], [place] [address] Primary Staff Physician Cardiology 10/30/18 Accounts Adjustable Clerk Relationship Specialty Start Date End Date Amilcar Cabral MD [address] [place] [address] PCP - General 12/25/09 Lev Latif [address] [place] [address] Referring Cardiology 06/04/18 Branden Sinha MD [address], [place] [address] Primary Staff Physician Cardiology 10/30/18 Accounts Adjustable Clerk Relationship Specialty Start Date End Date Amilcar Cabral MD [address] [place] [address] PCP - General 12/25/09 Lev Latif [address] [place] [phone] Referring Cardiology 06/04/18 Branden Sinha MD [address], [address] [place], [place] [id number] Primary Staff Physician Cardiology 10/30/18 Accounts Adjustable Clerk Relationship Specialty Start Date End Date Amilcar Cabral MD [address] [place], [place] [address] PCP - General 12/25/09 Lev Latif [address] [place] [phone] Referring Cardiology 06/04/18 Branden Sinha MD [address], [address] [place], [place] [id number] Primary Staff Physician Cardiology 10/30/18 Accounts Adjustable Clerk Relationship Specialty Start Date End Date Amilcar Cabral MD [address] [place] [address] PCP - General 12/25/09 Lev Latif [address] [place] [phone] Referring Cardiology 06/04/18 Branden Sinha MD [address], [address] [place], [place] [id number] Primary Staff Physician Cardiology 10/30/18 Accounts Adjustable Clerk Relationship Specialty Start Date End Date Amilcar Cabral MD [address] [place], [place] [address] PCP - General 12/25/09 Lev Latif MD [address] [place] [phone] Referring Cardiology 06/04/18 Branden Sinha MD [address], [address] [place], [place] [id number] Primary Staff Physician Cardiology 10/30/18 Accounts Adjustable Clerk Relationship Specialty Start Date End Date Amilcar Cabral MD [address] [place], [place] [id number] PCP - General 12/25/09 Lev Latif MD [address] [place] [phone] Referring Cardiology 06/04/18 Branden Sinha MD [address], [address] [place], [place] [id number] Primary Staff Physician Cardiology 10/30/18 Reason for Visit (unrecogniz ed section and content) Reason Comments Recheck 12 month Reason Comments Follow Up Reason Comments Nm Pet Request Reason Comments Medication Authorization Reason Comments Radiology US Specialty Diagnoses / Procedures Referred By Daxa t Referred To Contact US IMAGING Diagnoses Family history of abdominal aortic aneurysm (AAA) Procedures US SCREENING FOR AAA (2017) US ABDOMINAL AORTA REAL TIME SCREEN STUDY AAA Brenda Santizo, MARCY.SUBSTATION DESIGNER [address] [place] [address] Us Imaging [id number] Referral ID Status Reason Start Date Expiration Date V isits Requested Visits Authorized [id number] Closed Auto-Generate d Referral 05/03/2022 06/02/2023 1 1 Reason Comments Radiology NM Specialty Diagnoses / Procedures Referred By Contac t Referred To Contact MOLECULAR & FUNCTIONAL IMAGING Diagnoses 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 S/P CABG (coronary artery bypass graft) Procedures NM PET/CT CARDIAC PERF REST/STRESS MYOCRD IMG PET PRFUJ TRAIN CONDUCTOR STD RST & STRS CNCRNT CT Branden Sinha MD [address] [facility] [place] [address] [place] [address] Molecular & Functional Imaging [address] [place] [address] Referral ID Status Reason Start Date Expiration Date V isits Requested Visits Authorized [id number] Closed Auto-Generate d Referral 06/12/2023 07/11/2024 1 1 FOR RECORDS PERTAINING TO PATIENTS WHO ARE OR HAVE BEEN ENROLLED IN A CHEMICAL DEPENDENCY/SUBSTANCEABUSE PROGRAM, SOME INFORMATION MAY BE OMITTED. This clinical summary was aggregated from multiple sources. Caution should be exercised in using it in the provision of clinical care. This summary normalizes information from multiple sources, and as a consequence, information in this document may materially change the coding, format and clinical context of patient data. In addition, data may be omitted in some cases. CLINICAL DECISIONS SHOULD BE BASED ON THE PRIMARY CLINICAL RECORDS. [facility]. provides no warranty or guarantee of the accuracy or completeness of information in this document.
== END 2023-09-05 11:38 | disposition home or self-care (01) ==
LOC: ED 10:25
PROVIDERS: Emergency Provider Emergency Medicine; PCP Internal Medicine; Visit Provider Emergency Medicine
DX: S62.102A Fracture of unspecified carpal bone, left wrist, initial encounter for closed fracture (principal); Z87.891 Personal history of nicotine dependence; W00.2XXA Other fall from one level to another due to ice and snow, initial encounter; Y93.89 Activity, other specified; I25.10 Atherosclerotic heart disease of native coronary artery without angina pectoris; Z79.01 Long term (current) use of anticoagulants; I10 Essential (primary) hypertension; E78.5 Hyperlipidemia, unspecified; I25.2 Old myocardial infarction; Z95.5 Presence of coronary angioplasty implant and graft; Z79.899 Other long term (current) drug therapy; Z79.02 Long term (current) use of antithrombotics/antiplatelets; S09.90XA Unspecified injury of head, initial encounter
CPT/HCPCS: 29125; 70450; 73110; 99282

== ENCOUNTER 2025-04-27 16:18 | Inpatient (IN) | payer MEDICARE, OTHER, SELFPAY ==
[2025-04-27] VITALS (26 sets, daily range): BP systolic 133–185; BP diastolic 74–93; PULSE 76–134; RESP 15–26; TEMP 36.1–36.6; O2SAT 81–100; BMI 22.6; BMI 21.6
--- NOTE | 2025-04-27 16:38 | EKG12_ITS ---
Test Reason : SOB Blood Pressure : */* mmHG Vent. Rate : 104 BPM Atrial Rate : 104 BPM P-R Int : 202 ms QRS Dur : 150 ms QT Int : 380 ms P-R-T Axes : 35 -58 37 degrees QTcB Int : 499 ms Sinus tachycardia Right bundle branch block Left anterior fascicular block Bifascicular block Minimal voltage criteria for LVH, may be normal variant ( R in aVL ) Abnormal ECG Confirmed by Joseph Dunn ([id number]), graphics editor LAURA SPARROW ([id number]) on 04/28/2025 1:22:15 PM Referred By: MAGDALENE/FEDERICO Confirmed By: Joseph Dunn
--- NOTE | 2025-04-27 16:39 | ED.VIS.DYS ---
HPI History of Present Illness Chief Complaint: Shortness of Breath Informant: patient Onset/Context/Timing Onset: Today and Hours Context: gradual (Since around noon) Timing: Continuous Current Severity: Gone (Symptoms resolved after he was placed on oxygen. He is not on oxygen at home.) Maximum Severity: Mild Worsened by: Exertion Relieved by: Oxygen Associated Symptoms Negative for cough Chest Pain: Positive for None Narrative Narrative: 79-year-old male with history of prior AK with triple bypass at age 40 that was 39 years ago. He has had 3 cardiac stents and then had another stent placed several years ago. He also has pulmonary fibrosis. He is on Plavix used to be on aspirin and he had to DC the aspirin due to GI bleed. Has been feeling fine today around noon he became short of breath. No chest pain whatsoever. No history of DVT or PE. No leg swelling or calf pain. No mops this. No recent travel surgery immobilization. States normally his pulse ox is in the high 90s. When he drove himself in here today in triage he was 81%. Currently is completely symptom-free after being placed on oxygen. He is not on oxygen at home. Denies any recent illness. 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 Presence of stent in coronary artery (~12/03/14) Encounter for long-term current use of high risk medication Supraventricular tachycardia Old myocardial infarction Home Medications ?Medication ?Instructions ?Recorded ?Last Taken ?Type coenzyme Q10 100 mg capsule 100 mg PO DAILY 11/23/17 Unknown History flaxseed oil 1,000 mg capsule 1,000 mg PO DAILY 11/27/17 Unknown History lutein 6 mg capsule 6 mg PO DAILY 11/27/17 Unknown History clopidogrel 75 mg tablet 75 mg PO DAILY #90 tabs 08/29/22 Unknown Rx ezetimibe 10 mg tablet 10 mg PO DAILY #90 tabs 08/29/22 Unknown Rx metoprolol succinate 25 mg 25 mg PO QHS #90 tabs 08/29/22 Unknown Rx tablet,extended release 24 hr pantoprazole 20 mg tablet,delayed 20 mg PO DAILY 10/13/22 Unknown History release nitroglycerin 0.4 mg sublingual 0.4 mg sublingual Q5-15M PRN Chest 04/18/23 Unknown Rx tablet (Nitrostat) pain #25 tabs rosuvastatin 40 mg tablet 40 mg PO DAILY 09/07/23 Unknown History nintedanib 150 mg capsule (Ofev) PO 04/27/25 Unknown History Allergy/AdvReac Type Severity Reaction Status Date / Time No Known Allergies Allergy Verified 04/27/25 16:20 Family History Father CAD (coronary artery disease) Mother CAD (coronary artery disease) Myocardial infarction Sister Diabetes Arthritis Surgical History Cataract extraction status, right eye Presence of coronary angioplasty implant and graft (~12/03/14) History of Mohs micrographic surgery for skin cancer History of local excision of skin lesion Postsurgical percutaneous transluminal coronary angioplasty (PTCA) status Aortocoronary bypass status (~07/1986) Social History Smoking Status: Former smoker alcohol intake: never substance use type: does not use caffeine: Yes Type: carbonated beverages what type of physical activity do you participate in: walking frequency: 5-6 times per week duration: 45-60 minutes/day seatbelt use: always do you feel safe at home: Yes ROS ROS ED ROS Narrative Shortness of breath starting around noon today. No recent illness. No chest pain whatsoever. Constitutional Constitutional ED: Denies chills or fever(s) Eyes Eyes: Denies blurry vision ENT ENT ED: Denies ear pain Cardiovascular Cardiovascular: Denies chest pain or palpitations Respiratory/Chest Respiratory/Chest: Reports dyspnea and dyspnea on exertion; Denies cough Gastrointestinal Gastrointestinal: Denies abdominal pain, constipation, diarrhea, melena, nausea or vomiting Genitourinary Genitourinary ED: Denies dysuria or hematuria Musculoskeletal Musculoskeletal: Denies arthralgias Integumentary Denies abscess Neurologic Neurologic: Denies headache(s) Psychiatric Psychiatric: Denies anxiety or depression Endocrine Endocrinology: Denies cold intolerance Hematologic/Lymphatic Hematologic/Lymphatic: Denies easy bleeding, easy bruising or lymphadenopathy Allergic/Immunologic Allergic/Immunologic ED: Denies mouth swelling, tongue swelling or urticaria EXAM Physical Exam Narrative Exam Narrative: 79-year-old male sitting upright in bed. Vital signs are stable. Is tachycardic. On room air on arrival in triage his pulse ox was 81% on 4 L and 98% symptom-free. He is tachycardic 120s. H EENT exam pupils round react light. Moist his membranes. Neck nontender no JVD. No lymphadenopathy. Lungs clear to auscultation bilaterally. No rales, rhonchi nor wheezing. Equal symmetric. Heart tachycardic no murmur. Chest wall ribs nontender. Abdomen soft nontender. Moving all 4 extremities. 5-5 stock car driver strength. Equal symmetric radial pulses. Calves are nontender without edema or cords. Dorsi plantarflexion intact. Back nontender. Neurologically is awake and alert. Answering questions following commands. Const Vital Signs: 04/27/25 16:18 04/27/25 16:20 04/27/25 16:20 Temperature 97.8 F 97.8 F Temperature Source Oral Oral Pulse Rate 134 H 107 H Respiratory Rate 20 H 15 Respiratory Effort Respiratory Depth Respiratory Pattern Blood Pressure 185/93 H 158/79 H Blood Pressure Mean 123 105 Pulse Ox 81 98 100 Oxygen Delivery Method Room Air Nasal Cannula Nasal Cannula Oxygen Flow Rate (L/min) 4 2 04/27/25 16:37 04/27/25 16:38 04/27/25 17:18 Temperature Temperature Source Pulse Rate 82 Respiratory Rate 16 Respiratory Effort Short of Breath Respiratory Depth Normal Respiratory Pattern Normal Blood Pressure 137/77 H Blood Pressure Mean 97 Pulse Ox 100 100 Oxygen Delivery Method Nasal Cannula Nasal Cannula Nasal Cannula Oxygen Flow Rate (L/min) 4 2 1 04/27/25 17:20 04/27/25 18:00 04/27/25 18:00 Temperature 97.9 F 97.9 F Temperature Source Oral Oral Pulse Rate 82 82 82 Respiratory Rate 16 16 Respiratory Effort Respiratory Depth Respiratory Pattern Blood Pressure 137/77 H 137/77 H Blood Pressure Mean 97 97 Pulse Ox 100 100 Oxygen Delivery Method Nasal Cannula Nasal Cannula Oxygen Flow Rate (L/min) 1 1 04/27/25 18:07 04/27/25 18:10 04/27/25 18:15 Temperature Temperature Source Pulse Rate 82 84 89 Respiratory Rate 18 19 H 23 H Respiratory Effort Respiratory Depth Respiratory Pattern Blood Pressure 133/74 H 148/78 H Blood Pressure Mean 93 98 Pulse Ox 100 100 100 Oxygen Delivery Method Oxygen Flow Rate (L/min) 04/27/25 18:20 04/27/25 18:25 04/27/25 18:30 Temperature Temperature Source Pulse Rate 87 87 Respiratory Rate 20 H 20 H Respiratory Effort Respiratory Depth Respiratory Pattern Blood Pressure 150/77 H 144/78 H 156/87 H Blood Pressure Mean 98 99 109 Pulse Ox 100 100 Oxygen Delivery Method Oxygen Flow Rate (L/min) 04/27/25 18:35 04/27/25 18:36 04/27/25 18:45 Temperature 97.9 F Temperature Source Oral Pulse Rate 106 H 81 92 Respiratory Rate 24 H 16 26 H Respiratory Effort Respiratory Depth Respiratory Pattern Blood Pressure 172/78 H 172/78 H Blood Pressure Mean 104 109 Pulse Ox 99 100 99 Oxygen Delivery Method Nasal Cannula Oxygen Flow Rate (L/min) 1 04/27/25 19:00 Temperature Temperature Source Pulse Rate 99 Respiratory Rate 22 H Respiratory Effort Respiratory Depth Respiratory Pattern Blood Pressure Blood Pressure Mean Pulse Ox 99 Oxygen Delivery Method Oxygen Flow Rate (L/min) Positive well nourished and well developed; Negative for obese, cachectic, contractures or unkempt General Appearance ED: well developed and NAD; Negative for unkempt, cachectic, contractures or pallor Nutritional Appearance: Negative for cachectic or obese HEENT Reports moist mucous membranes atraumatic; Negative for trauma or tenderness Eyes PERRL and EOMs intact bilaterally Neck no lymphadenopathy and no JVD Resp normal respiratory effort and clear to auscultation bilaterally Auscultation: Negative for rales, rhonchi, wheezes or diminished lung sounds Cardio regular rate, regular rhythm, S1 normal heart sound, S2 normal heart sound and no murmurs Rate: tachycardic GI non-tender, non-distended and no masses Auscultation: normoactive bowel sounds Palpation: soft; Negative for tender, guarding or rebound tenderness present Back/Spine no CVA tenderness and normal to inspection Extremity normal to inspection General Extremety ED: Negative for edema or tenderness General Extremity: Negative for edema Neuro oriented x3, CN's II-XII intact bilaterally and no sensory deficits noted Sensorium / Orientation: alert, oriented to person, oriented to place and oriented to time; Negative for orientation impaired, confused or lethargic Speech: speech normal Motor Exam: strength 5/5 throughout Psych mental status grossly normal Appearance: Negative for unkempt Mood & Affect: Negative for depressed, anxious or tearful Thought Process: normal thought process Skin no wounds and skin turgor normal General Skin Exam: Negative for jaundice or pallor Lesions: no lesions Rashes: no rashes Trauma: Negative for abrasion, laceration or puncture MDM MDM MDM Narrative Medical decision making narrative: 79-year-old male with shortness of breath with a history of coronary disease, stents and prior triple bypass on Plavix. Also history of pulmonary fibrosis. He is hypoxic. EKG is abnormal but does not show an acute AK. I will be placing a cardiac workup. We will do a D-dimer but he is never had a DVT or PE or risk factors for it. Versus other etiologies of hypoxia and shortness of breath. Pneumonia or CHF would be considerations. Business Banking Relationship Manager reviewed his EKG also. Agrees with just continuing cardiac workup. Multiple repeat exams unchanged. His heart rate has come down to the 90s. I discussed with the patient all his test results and primarily his CTA of his chest. Given his hypoxia and the diffuse quantity of pulmonary emboli I feel needs to be admitted. I have the hospitalist on page for admission and will discuss what they want to use for anticoagulation. Patient was started on IV heparin bolus and drip. History & Record Review Discussion w/independent historian: Patient Additional record(s) reviewed:: Prior inpatient record, Prior outpatient record, Prior ED visit and Prior labs Lab Data Attestation: I reviewed the patient's lab results. Lab results narrative: CBC shows a white count of 9.0. H&H of 14 and 42. Platelets are low at 111. PT/INR of 14.1 and 1.1. PTT is 26.5. D-dimer elevated 12.6. Troponin 21. BNP 223. Electrolytes show gap of 12. Normal BUN of 17 creatinine 0.8. Glucose 112. CTA of the chest shows multiple bilateral diffuse pulmonary emboli including the main pulmonary arteries. Labs: Laboratory Results - last 24 hr 04/27/25 04/27/25 04/27/25 16:32 16:56 18:30 WBC 9.0 RBC 4.59 L Hgb 14.2 Hct 42.8 MCV 93.2 MCH 30.9 MCHC 33.2 RDW Std Deviation 46.6 H RDW Coeff of Tracy 13.6 Plt Count 111 L MPV 11.8 Immature Gran % (Auto) 0.200 Neut % (Auto) 55.3 Lymph % (Auto) 31.0 [place] % (Auto) 9.5 Eos % (Auto) 3.6 Baso % (Auto) 0.4 Absolute Neuts (auto) 5.0 Absolute Lymphs (auto) 2.79 Nucleated RBC % 0 PT 14.1 INR 1.1 APTT 26.5 D-Dimer Quant (PE/DVT) 12.60 H* Sodium 139 Potassium 3.7 Chloride 103 Carbon Dioxide 23.6 Anion Gap 12 BUN 17 Creatinine 0.82 Estim Creat Clear Calc 75.45 Est GFR (MDRD) Non-Af 88 BUN/Creatinine Ratio 20.9 H Glucose 112 H Calcium 8.9 Troponin T High Sens 21 Troponin T Hi Sens 2 Hr 25 H NT pro BNP II 223 Cancelled Radiography Chest X-Ray - ED: 1 View, Read by ED Physician, Heart, Lungs, Mediastinum, Bony Structures, No Acute Disease and Chronic Changes Diagnostic Testing: Clinical Impression(s) from Imaging Studies Chest X-Ray 04/27/25 16:48 IMPRESSION: 1. Small bibasilar opacities, likely atelectasis or infiltrates. 2. Bilateral interstitial coarsening, suggesting interstitial lung disease. Reading Location: [facility] Chest CTA 04/27/25 18:33 IMPRESSION: 1. Acute pulmonary emboli bilaterally with saddle emboli in the distal right and left pulmonary arteries extending into segmental and subsegmental pulmonary arteries bilaterally. Moderate clot burden. Evidence of right heart strain. 2. Usual interstitial pneumonia (UIP) pattern of interstitial lung disease. 3. Scattered tree-in-bud nodules bilaterally, can be seen with mucoid impaction or endobronchial spread of infection. Red Alert: Acute pulmonary emboli bilaterally with saddle emboli in the distal right and left pulmonary arteries extending into segmental and subsegmental pulmonary arteries bilaterally. Moderate clot burden. Evidence of right heart strain. The critical findings in the findings and impression above were relayed directly by me by telephone to Dr. Moctezuma On 04/27/2025 at 4:59 pm [place] standard time with readback verification. Reading Location: [facility] Chest x-ray, portable, single view interpreted by myself shows normal cardiac silhouette mediastinum. No pneumonia. No effusions. Normal cardiac silhouette. Prior sternotomy. Rhythm Strip Rhythm Strip: Sinus Tach Rate: 104 Ectopy: None EKG Initial EKG: Attestation: I personally reviewed and interpreted this EKG as follows: Interpretation: Sinus Tachycardia, RBBB and LAFB Comments: Sinus tachycardia rate of 104. Left anterior fascicular block. Right bundle branch block. ST depression in V2 and 3. Slight elevation in lead III. But nothing to call an acute AK. Currently symptom-free and patient has had no chest pain. Discharge Plan Dx/Rx/DC Orders Clinical Impression: Acute dyspnea, Hypoxia, Bilateral pulmonary embolism, Hx of pulmonary fibrosis, Hx of coronary artery bypass graft Disposition Disposition: Acute Care Hospital [facility]
--- NOTE | 2025-04-27 16:48 | RAD_ITS ---
PROCEDURE: CHEST 1 VIEW (PORTABLE) 04/27/2025 REASON FOR EXAM: CHEST PAIN TECHNIQUE: Frontal view of the chest. COMPARISON: 05/10/2018 FINDINGS: LUNGS AND PLEURA: Interstitial coarsening and small opacities noted in both lung bases. No pleural effusion or pneumothorax. HEART AND MEDIASTINUM: The cardiac silhouette is mildly enlarged. The mediastinal contour is normal. Evidence of prior CABG with sternal wires in place. BONES: No acute osseous abnormality. RAD/Chest 1 View (Portable) IMPRESSION: 1. Small bibasilar opacities, likely atelectasis or infiltrates. 2. Bilateral interstitial coarsening, suggesting interstitial lung disease. Reading Location: [id number]
--- OUTSIDE RECORDS SUMMARY | 2025-04-27 17:20 | XMS RPT_ITS | CCD ---
Author Organization [facility] Care Team Providers Care Extrusion Die Corrector Name Role Phone Lev Latif MD Unavailable Landen Ruiz Unavailable Unavailable WATSON MCLAUGHLIN Unavailable Unavailable WATSON MCLAUGHLIN Unavailable Unavailable Rosalia Pittman Unavailable Unavailable Rosalia Pittman Unavailable Unavailable Dr. Amilcar Tamayo Primary Care Provider Dr. Amilcar Tamayo Referring Provider Dr. Lev Latif Attending Provider GHADA Ivey Attending Provider Dr. Lev Latif Referring Provider Dr. Lev Latif Other Provider Amilcar Tamayo MD Primary Care Provider Lev Latif Unavailable Branden Hickman MD Unavailable Amilcar Tamayo MD Primary Care Provider Lev Latif Unavailable Branden Hickman MD Unavailable Amilcar Tamayo MD Primary Care Provider Lev Latif Unavailable Branden Hickman MD Unavailable Lev Latif Unavailable Branden Hickman MD Unavailable Lev Latif MD Unavailable Talampas, Amilcar D Referring Unavailable Montrlel, Dale Attending Unavailable Talampas, Amilcar D Primary Care Unavailable Talampas, Amilcar D Referring Unavailable Marsh Jonathan Attending Unavailable Talampas, Amilcar D Primary Care Unavailable Talampas, Amilcar D Referring Unavailable Talampas, Amilcar D Primary Care Unavailable Maximo Jonathan Attending Unavailable Talampas, Amilcar D Primary Care Unavailable Jose, [place] Attending Unavailable Talampas, Amilcar D Primary Care Unavailable Marsh Jonathan Attending Unavailable Talampas, Amilcar D Referring Unavailable Talampas, Amilcar D Primary Care Unavailable Jose, Kirby Attending Unavailable Demarcus Greene Attending Unavailable Talampas, Amilcar D Primary Care Unavailable Scottampas Amilcar PAZ Primary Care Provider Bhavya PAZ, Lev Noel Unavailable Lev Latif MD Unavailable Lev Latif MD Unavailable Santizo TAPER OPERATOR.ELECTROMECHANISMS DESIGN DRAFTER, Brenda Unavailable Shawn TAPER OPERATOR.LARGE ANIMAL VETERINARIAN, Talib Unavailable Shawn TAPER OPERATOR.LARGE ANIMAL VETERINARIAN, Talib Unavailable Shawn TAPER OPERATOR.LARGE ANIMAL VETERINARIAN, Talib Unavailable Santizo TAPER OPERATOR.ELECTROMECHANISMS DESIGN DRAFTER, Brenda Unavailable TALAMPAS, AMILCAR D Primary Care Unavailable HOMA COLEMAN Referring Unavailable TALAMPAS, AMILCAR D Primary Care Unavailable HOMA COLEMAN Referring Unavailable TALAMPAS, AMILCAR D Primary Care Unavailable HOMA COLEMAN Attending Unavailable TALAMPAS, AMILCAR D Primary Care Unavailable MILLEI CHESTER Referring Unavailable TALAMPAS, AMILCAR D Primary Care Unavailable HOMA COLEMAN Attending Unavailable TALAMPAS, AMILCAR D Primary Care Unavailable HOMA COLEMAN Referring Unavailable TALAMPAS, AMILCAR D Primary Care Unavailable HOMA COLEMAN Attending Unavailable HOMA COLEMAN Referring Unavailable TALAMPAS, AMILCAR D Primary Care Unavailable TALAMPAS, AMILCAR D Primary Care Unavailable MILLIE CHESTER Referring Unavailable TALAMPAS, AMILCAR D Primary Care Unavailable TALAMPAS, AMILCAR D Referring Unavailable TALAMPAS, AMILCAR D Attending Unavailable TALAMPAS, AMILCAR D Primary Care Unavailable TALAMPAS, AMILCAR D Primary Care Unavailable TALAMPAS, AMILCAR D Primary Care Unavailable MILLIE CHESTER Attending Unavailable TALAMPAS, AMILCAR D Primary Care Unavailable TALAMPAS, AMILCAR D Primary Care Unavailable MILLIE CHESTER Referring Unavailable TALAMPAS, AMILCAR D Primary Care Unavailable HOMA COLEMAN Referring Unavailable TALAMPAS, AMILCAR D Primary Care Unavailable HOMA COLEMAN Referring Unavailable TALAMPAS, AMILCAR D Primary Care Unavailable BRANDEN IHCKMAN Referring Unavailable BRANDEN HICKMAN Attending Unavailable TALAMPAS, AMILCAR D Primary Care Unavailable JINAOFFBRANDEN Referring Unavailable TALAMPAS, AMILCAR D Primary Care Unavailable LINCOFF, BRANDEN Referring Unavailable TALAMPAS, AMILCAR D Primary Care Unavailable TALIB JUNG Attending Unavailable Medications Current Medications Medication Drug Class(es) Dates Sig (Normalized) Sig (Original) carbamide peroxide 65 mg/ml otic solution (1 source) Start: 05-03-2022 End: 05-08-2022 carbamide peroxide (DEBROX) 6.5 % otic solution Use 5 Drops in both ears twice daily for 5 days. 15 mL 0 05/03/2022 05/08/2022 Active Comment on above: Use 5 Drops in both ears twice daily for 5 days. clopidogrel 75 mg oral tablet (20 sources) [id number] Platelet Inhibitor Start: 06-07-2019 End: 07-01-2025 take 1 tablet by mouth once daily clopidogrel (PLAVIX) 75 mg tablet Indications: Atherosclerosis 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 pectoris Take 1 tablet by mouth once daily. 90 tablet 3 07/01/2024 07/01/2025 Active Start: 05-10-2018 End: 05-12-2018 take 75 mg by mouth once daily Clopidogrel Discontinue d 75 MG PO DAILY May 10, 2018 7:17am May 12, 2018 12:52pm Start: 11-23-2017 End: 11-27-2017 take 75 mg by mouth once daily Clopidogrel Discontinue d 75 MG PO daily November 23, 2017 12:02pm November 27, 2017 1:45pm Start: 12-09-2014 take 1 tablet by harvey once daily CLOPIDOGREL BISULFATE 75 MG TABS One tablet by mouth daily CLOPIDOGREL BISULFATE [id number] Lev Latif MD Comment on above: Take 1 tablet by harvey once daily. ubidecarenone 100 mg oral capsule (20 sources) Start: 11-23-2017 Coenzyme Q10 Active 100 MG PO DAILY November 23, 2017 12:03pm Start: 11-07-2011 take 1 tablet by harvey th once daily CO Q-10 100 MG CAPS One tablet by mouth daily COENZYME Q10 [id number] Lev Latif MD Start: 11-07-2011 take 1 tablet by harvey th once daily CO Q-10 100 MG CAPS One tablet by mouth daily COENZYME Q10 [id number] Lev Latif MD Comment on above: Take 100 mg by mouth once daily. 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 90 tablet 3 07/01/2024 07/01/2025 Active Start: 11-27-2017 End: 11-27-2017 take 1 tablet by mouth once daily Ezetimibe (Zetia) 10 mg tablet Discontinued 10 MG PO daily November 27, 2017 1:42pm November 27, 2017 1:45pm Start: 02-15-2011 take 1 tablet by harvey once daily ZETIA 10 MG TABS One tablet by mouth daily EZETIMIBE [id number] Lev Latif MD Comment on above: Take 1 tablet by harvey once daily. lutein 6 mg oral capsule (20 sources) Start: 7 take 1 tablet by mouth once daily Lutein 6 mg ORAL Cap Take one(1) tablet daily. 0 06/05/2007 Active Comment on above: Take one(1) tablet d aily. 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 90 tablet 3 07/01/2024 07/01/2025 Active Start: 11-23-2017 End: 11-27-2017 take 25 mg by mouth once daily Metoprolol Succinate Di scontinued 25 MG PO daily November 23, 2017 12:04pm November 27, 2017 1:45pm Start: 05-29-2013 take 1 tablet by harvey th once daily METOPROLOL SUCCINATE ER 25 MG [id number] One tablet by mouth daily METOPROLOL SUCCINATE [id number] Lev Latif MD Start: 02-15-2011 take 1 tablet by harvey th once daily TOPROL XL 50 MG [id number] One tablet by mouth daily METOPROLOL SUCCINATE [id number] Lev Latif MD Start: 02-15-2011 take 1 tablet by harvey th once daily TOPROL XL 50 MG [id number] One tablet by mouth daily METOPROLOL SUCCINATE [id number] Lev Latif MD Comment on above: Take 1 tablet by harvey th once daily. nintedanib 150 mg oral capsule (15 sources) Kinase Inhibitor Start: 12-17-2024 take 1 capsule by mouth twice daily at mealtime nintedanib (OFEV) 150 mg capsule Indications: IPF (idiopathic pulmonary fibrosis) (HCC) TAKE 1 CAPSULE BY MOUTH TWICE A DAY 12 HOURS APART WITH FOOD 60 capsule 11 12/17/2024 Active Start: 06-11-2024 End: 12-17-2024 take 1 capsule by mouth every twelve hours nintedanib (OFEV) 150 mg capsule Indications: IPF (idiopathic pulmonary fibrosis) (HCC) Take 1 capsule by mouth every 12 hours. 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 If no pain relief call 911. 25 tablet 3 06/12/2023 Active Start: 11-23-2017 End: 01-13-2021 Nitroglycerin (Nitrostat) 0. 4 mg tablet, sublingual Discontinued 0.4 MG SL Q5M November 23, 2017 12:04pm January 13, 2021 1:08pm Start: 05-27-2013 NITROSTAT 0.4 MG SUBL 1 tablet under tongue every 5 min up to 3 X as needed for chest pain NITROGLYCERIN [id number] Nurys Whitehead PA-C Start: 02-15-2011 NITROGLYCERIN 0.4 MG/HR PT24 1 tablet under tongue every 5 min up to 3 X NITROGLYCERIN [id number] Ira Cowan Comment on above: Dissolve 1 tablet un cindi the tongue as needed for Chest Pain. If no pain relief call 911. 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 90 tablet 3 07/01/2024 07/01/2025 Active Start: 09-14-2018 End: 07-19-2021 take 1 tablet by mouth once daily Pantoprazole (Protonix) 40 mg tablet,delayed release (DR/EC) Discontinued 40 MG PO DAILY September 14, 2018 3:27pm July 19, 2021 2:42pm Comment on above: Take 1 tablet by harvey once daily. perflutren lipid microspheres 1.3 mL in NaCl (PF) 0.9% 10 mL injection (DEFINITY) (9 sources) Start: 2 End: 4 perflutren lipid microspheres 1.3 mL in NaCl (PF) 0.9% 10 mL injection (DEFINITY) rosuvastatin calcium 40 mg oral tablet (20 sources) HMG-CoA Reductase Inhibitor Start: 3 End: 4 take 1 tablet by mouth once daily at bedtime rosuvastatin (CRESTOR) 40 mg tablet Take 1 tablet by mouth daily at bedtime. 90 tablet 3 07/01/2024 Active Comment on above: Take 1 tablet by harvey th daily at bedtime. 125 ml sodium chloride 9 mg/ml prefilled syringe (9 sources) Start: 2 End: 4 sodium chloride 0.9 % (flush) 10 mL (BD POSIFLUSH) Completed/Discontinued Medications Medication Drug Class(es) Dates Sig (Normalized) Sig (Original) aspirin 81 mg delayed release oral tablet (17 sources) Nonsteroidal Anti-inflammatory Drug Start: 09-14-2018 End: 06-17-2019 take 81 mg by mouth once daily Aspirin Discontinued 81 MG PO DAILY September 14, 2018 3:27pm June 17, 2019 2:06pm Start: 11-23-2017 End: 05-12-2018 Aspirin (Adult Low Dose Aspi rin) 81 mg tablet,delayed release (DR/EC) Discontinued 81 MG PO DAILY November 23, 2017 12:01pm May 12, 2018 12:52pm Start: 02-15-2011 take 1 tablet by harvey th once daily ASPIRIN 81 MG TABS One tablet by mouth daily ASPIRIN [id number] Ira Cowan Start: 02-15-2011 take 1 tablet by harvey th once daily ASPIRIN 81 MG TABS One tablet by mouth daily ASPIRIN [id number] Yessy Dumont RN Start: 02-15-2011 take 1 tablet by harvey th once daily ASPIRIN EC 81 MG TBEC One tablet by mouth daily ASPIRIN [id number] Lev Latif MD atorvastatin 80 mg oral tablet (20 sources) HMG-CoA Reductase Inhibitor Start: 06-14-2021 End: 06-12-2023 take 80 mg by mouth at bedtime Atorvastatin Discontinued 80 MG PO AT BEDTIME July 19, 2021 2:08pm August 29, 2022 7:40pm Start: 01-13-2021 End: 07-19-2021 take 40 mg by mouth at bedtime Atorvastatin Discontinu ed 40 MG PO AT BEDTIME January 13, 2021 12:07pm July 19, 2021 2:09pm Start: 06-17-2019 End: 01-13-2021 take 40 mg by mouth at bedtime Atorvastatin Discontinu ed 40 MG PO AT BEDTIME 45 December 16, 2019 12:07pm January 13, 2021 12:06pm Start: 11-26-2018 End: 06-17-2019 take 40 mg by mouth once daily Atorvastatin Discontinu ed 40 MG PO DAILY November 26, 2018 9:25am June 17, 2019 2:06pm Start: 05-10-2018 End: 06-25-2018 take 40 mg by mouth at bedtime Atorvastatin Discontinu ed 40 MG PO AT BEDTIME May 10, 2018 7:17am June 25, 2018 4:58pm Start: 05-27-2013 take 0.5 tablet by m outh once daily ATORVASTATIN CALCIUM 80 MG TABS One-half tablet by mouth daily ATORVASTATIN CALCIUM [id number] Lev Latif MD Start: 02-15-2011 take 1 tablet by harvey th once daily LIPITOR 40 MG TABS One tablet by mouth daily ATORVASTATIN CALCIUM [id number] Lev Latif MD Comment on above: Take 1 tablet by harvey th once daily. As directed Flaxseed extract (3 sources) Non-Standardized Food Allergenic Extract, Non-Standardized Plant Allergenic Extract Start: 05-01-2017 take 1 tablet by mouth once daily FLAX SEED OIL CAPS One tablet by mouth daily FLAXSEED (LINSEED) CAPS [id number] Lev Latif MD Start: 05-01-2017 take 1 tablet by harvey th once daily FLAX SEED OIL CAPS One tablet by mouth daily FLAXSEED (LINSEED) CAPS [id number] Lev Latif MD linseed oil 1000 mg oral capsule (14 sources) Start: 11-27-2017 End: 01-09-2024 take 1 capsule by mouth once daily Flaxseed Oil 1,000 mg cap Take 1 capsule by mouth once daily. 0 01/23/2018 01/09/2024 Discontinued Comment on above: Take 1 capsule by mouth once daily. MULTIPLE VITAMIN (8 sources) Start: 12-02-2013 take 1 tablet by mouth every other day MULTIVITAMINS TABS One tablet by mouth every other day MULTIPLE VITAMIN Nurys Whitehead PA-C Start: 12-02-2013 take 1 tablet by harvey th every other day MULTIVITAMINS TABS One tablet by mouth every other day MULTIPLE VITAMIN Nurys Whitehead PA-C Start: 02-15-2011 take 1 tablet by harvey th once daily MULTIVITAMINS TABS One tablet by mouth daily MULTIPLE VITAMIN [id number] Ira Cowan MULTIPLE VITAMIN (2 sources) Start: 02-15-2011 take 1 tablet by mouth once daily MULTIVITAMINS TABS One tablet by mouth daily MULTIPLE VITAMIN [id number] Ira Bass Cowan Start: 02-15-2011 take 1 tablet by harvey th once daily MULTIVITAMINS TABS One tablet by mouth daily MULTIPLE VITAMIN [id number] Ira Shelia Camryn 24 hr niacin 1000 mg extended release oral tablet (7 sources) Nicotinic Acid Start: 11-23-2017 End: 06-17-2019 take 1000 mg by mouth at bedtime Niacin Discontinued 1000 MG PO AT BEDTIME November 23, 2017 12:04pm June 17, 2019 2:07pm Start: 02-15-2011 take 1 tablet by harvey th once daily NIACIN ER 1000 MG CR-TABS (ER) One tablet by mouth daily NIACIN [id number] Ira M Camryn Problems Active Problems Problem Classification Problem Date Documented Date Episodic/Chronic Cardiac dysrhythmias (20 sources) Supraventricular tachycardia; Translations: [Ventricular tachycardia] Onset: 07-30-2007 Resolved: 12-06-2022 02-15-2011 Chronic Chronic obstructive pulmonary disease and bronchiectasis (9 sources) Chronic obstructive lung disease; Translations: [Chronic obstructive pulmonary disease, unspecified] Onset: 04-30-2024 01-09-2024 Chronic Coagulation and hemorrhagic disorders (20 sources) Chronic idiopathic thrombocytopenic purpura; Translations: [Immune thrombocytopenic purpura] Onset: 02-23-2018 02-23-2018 Chronic Complication of device; implant or graft (5 sources) Arteriosclerosis of coronary artery bypass graft; Translations: [Atherosclerosis of coronary artery bypass graft(s) without angina pectoris] Onset: 02-15-2011 02-15-2011 Chronic Conditions associated with dizziness or vertigo (2 sources) Lightheadedness; Translations: [Dizziness and giddiness] 03-04-2019 Episodic Coronary atherosclerosis and other heart disease (20 sources) Old myocardial infarction; Translations: [Old myocardial infarction] Onset: 07-30-2007 Chronic Disorders of lipid metabolism (20 sources) Hyperlipidemia; Translations: [Hyperlipidemia, unspecified] Onset: 03-22-2005 02-15-2011 Chronic E Codes: Fall (1 source) Fall; Translations: [Unspecified fall, initial encounter] 09-05-2023 Episodic Esophageal disorders (2 sources) Gastroesophageal reflux disease without esophagitis; Translations: [Gastro-esophageal reflux disease without esophagitis] Onset: 01-20-2025 01-20-2025 Chronic Essential hypertension (20 sources) Essential hypertension; Translations: [Essential (primary) hypertension] Onset: 11-06-2008 Resolved: 01-23-2018 Chronic Fracture of upper limb (5 sources) Closed fracture of distal end of radius; Translations: [Unspecified fracture of the lower end of left radius, initial encounter for closed fracture] Onset: 09-07-2023 09-05-2023 Episodic Gastroduodenal ulcer (except hemorrhage) (20 sources) Peptic ulcer; Translations: [Peptic ulcer, site unspecified, unspecified as acute or chronic, without hemorrhage or perforation] Onset: 05-29-2018 05-29-2018 Chronic Gastroduodenal ulcer (except hemorrhage) (2 sources) H/O: peptic ulcer; Translations: [Personal history of peptic ulcer disease] Onset: 01-20-2025 01-20-2025 Episodic Immunizations and screening for infectious disease (14 sources) Patient encounter status; Translations: [Encounter for screening for COVID-19] Onset: 12-06-2022 Episodic Nausea and vomiting (2 sources) Nausea; Translations: [Nausea] Onset: 01-20-2025 01-20-2025 Episodic Other aftercare (1 source) Long-term current use of drug therapy; Translations: [Other termite control technician (current) drug therapy] 01-20-2025 Episodic Other injuries and conditions due to external causes (1 source) Injury of head; Translations: [Unspecified injury of head, initial encounter] 09-05-2023 Episodic Other lower respiratory disease (3 sources) Interstitial lung disease; Translations: [Interstitial pulmonary disease, unspecified] 04-30-2024 Chronic Other lower respiratory disease (20 sources) Idiopathic pulmonary fibrosis; Translations: [Idiopathic pulmonary fibrosis] Onset: 07-01-2024 05-28-2024 Chronic Other lower respiratory disease (2 sources) Idiopathic pulmonary fibrosis; Translations: [Idiopathic pulmonary fibrosis (HCC)] Onset: 07-01-2024 Chronic Other lower respiratory disease (1 source) Interstitial pulmonary disease, unspecified; Translations: [Interstitial pulmonary disease (HCC)] Onset: 05-16-2024 Chronic Other lower respiratory disease (6 sources) Dyspnea; Translations: [Shortness of breath] Onset: 10-20-2014 10-20-2014 Episodic Other lower respiratory disease (1 source) Nodule of lung; Translations: [Solitary pulmonary nodule] 05-28-2024 Episodic Other skin disorders (2 sources) Excessive sweating; Translations: [Generalized hyperhidrosis] 03-04-2019 Episodic Other upper respiratory disease (1 source) Allergic rhinitis; Translations: [Allergic rhinitis, unspecified] 08-28-2024 Chronic Other upper respiratory disease (1 source) Allergic rhinitis, unspecified; Translations: [Allergic rhinitis, unspecified seasonality, unspecified trigger] Onset: 10-29-2024 Chronic Other upper respiratory disease (1 source) Nasal discharge; Translations: [Other specified disorders of nose and nasal sinuses] 08-28-2024 Episodic Residual codes; unclassified (2 sources) Family history of aneurysm of abdominal aorta; Translations: [Family history of ischemic heart disease and other diseases of the circulatory system] Episodic Residual codes; unclassified (3 sources) FH: Aortic aneurysm; Translations: [Family history of ischemic heart disease and other diseases of the circulatory system] Episodic Unclassified (2 sources) Long-term drug therapy; Translations: [Other termite control technician (current) drug therapy] Onset: 02-15-2011 02-15-2011 Viral infection (3 sources) Disease caused by 2019-nCoV; Translations: [COVID-19] Episodic Past or Other Problems Problem Classification Problem Date Documented Da te Episodic/Chronic Coronary atherosclerosis and other heart disease (18 sources) Presence of aortocoronary bypass graft; Translations: [Coronary angioplasty status] Onset: 08-14-1985 02-15-2011 Episodic E Codes: Adverse effects of medical drugs (1 source) Adverse effect of unspecified drugs, medicaments and biological substances, initial encounter; Translations: [Adverse effect of drug, initial encounter] Onset: 12-31-2024 Episodic Gastrointestinal hemorrhage (20 sources) Hematemesis; Translations: [Hematemesis] Onset: 05-12-2018 Resolved: 05-15-2018 03-04-2019 Episodic Other aftercare (4 sources) Other termite control technician (current) drug therapy; Translations: [Other care home (current) drug therapy] Onset: 02-15-2011 02-15-2011 Episodic Other circulatory disease (6 sources) History of myocardial infarction; Translations: [Abnormal result of cardiovascular function study, unspecified] Onset: 02-15-2011 02-15-2011 Episodic Other circulatory disease (20 sources) History of cardiac arrhythmia; Translations: [Personal history of other diseases of the circulatory system] Onset: 04-05-2011 Resolved: 08-02-2017 08-09-2021 Episodic Other connective tissue disease (20 sources) Enthesopathy of ankle AND/OR tarsus; Translations: [Other enthesopathy of unspecified foot and ankle] Onset: 03-22-2005 03-22-2005 Episodic Other lower respiratory disease (1 source) Solitary pulmonary nodule; Translations: [Lung nodule] Onset: 12-31-2024 Episodic Other lower respiratory disease (1 source) Shortness of breath; Translations: [SOB (shortness of breath)] Onset: 07-08-2024 Episodic Other non-epithelial cancer of skin (20 [...] function study, unspecified] Onset: 11-06-2014 11-06-2014 Episodic Residual codes; unclassified (1 source) Family history of ischemic heart disease and other diseases of the circulatory system; Translations: [Family history of aortic aneurysm] Onset: 07-08-2024 Episodic Screening and history of mental health and substance abuse codes (3 sources) Ex-smoker; Translations: [Personal history of nicotine dependence] Onset: 07-01-2024 04-30-2024 Episodic Substance-related disorders (20 sources) Tobacco user; Translations: [Nicotine dependence, unspecified, uncomplicated] Onset: 11-06-2008 Resolved: 12-25-2009 12-25-2009 Chronic Results Test Name Value Interpretation Reference Range Facility CBC W Auto Differential pane l (Bld)on 01-20-2025 Basophils (Bld) [#/Vol] 0.05 10*3/uL [facility] Basophils/100 WBC (Bld) 0.7 % [facility] Differential cell count method Nom (Bld) Auto [facility] Eosinophils (Bld) [#/Vol] 0.24 10*3/uL [facility] Eosinophils/100 WBC (Bld) 3.4 % [facility] Erythrocyte distribution width (RBC) [Ratio] 13.3 % 11.5 - 15.0 % [facility] Hematocrit (Bld) [Volume fraction] 43.7 % 39.0 - 51.0 % [facility] Hemoglobin (Bld) [Mass/Vol] 14.3 g/dL 13.0 - 17.0 g/dL [facility] Immature granulocytes (Bld) [#/Vol] [facility]F [facility] Immature granulocytes/100 WBC (Bld) 0.1 % [facility] Interpretation and review of laboratory results Abnormal [facility] Lymphocytes (Bld) [#/Vol] 1.67 10*3/uL [facility] Lymphocytes/100 WBC (Bld) 23.4 % [facility] MCH (RBC) [Entitic mass] 31.2 pg 26.0 - 34.0 pg [facility] MCHC (RBC) [Mass/Vol] 32.7 g/dL 30.5 - 36.0 g/dL [facility] MCV (RBC) [Entitic vol] 95.4 fL 80.0 - 100.0 fL [facility] Monocytes (Bld) [#/Vol] 0.69 10*3/uL [facility] Monocytes/100 WBC (Bld) 9.7 % [facility] Neutrophils (Bld) [#/Vol] 4.47 10*3/uL [facility] Neutrophils/100 WBC (Bld) 62.7 % [facility] Nucleated RBC (Bld) [#/Vol] NINF [facility] Nucleated RBC/100 WBC (Bld) [Ratio] 0 % /100 WBC [facility] Platelet mean volume (Bld) [Entitic vol] 11.9 fL 9.0 - 12.7 fL [facility] Platelets (Bld) [#/Vol] 137 10*3/uL [facility] RBC (Bld) [#/Vol] 4.58 10*6/uL 4.20 - 6.00 m/uL [facility] WBC (Bld) [#/Vol] 7.13 10*3/uL [facility] Basophils (Bld) [#/Vol] 0.05 10*3/uL Normal <0.11 [facility] Comment on above: Order Comment: Speci men Type: BLOOD SPECIMENOrdering Facility: [facility] Address: [address] [place] [address] Performed By: #### [id number] ####[facility] [id number] [place] [address] [place] Basophils/100 WBC (Bld) 0.7 % Normal [facility] Comment on above: Order Comment: Speci men Type: BLOOD SPECIMENOrdering Facility: [facility] Address: [address] [place] [address] Performed By: #### 5 7021-8 ####[facility] LABCLIA [id number] [place] [address] [place] Differential cell count method Nom (Bld) Auto Normal [facility] Comment on above: Order Comment: Speci men Type: BLOOD SPECIMENOrdering Facility: [facility] Address: [address] [place] [address] Performed By: #### 5 7021-8 ####[facility] LABCLIA [id number] [place] [address] [place] Eosinophils (Bld) [#/Vol] 0.24 10*3/uL Normal <0.46 [facility] Comment on above: Order Comment: Speci men Type: BLOOD SPECIMENOrdering Facility: [facility] Address: [address] [place] [address] Performed By: #### 5 7021-8 ####[facility] LABCLIA [id number] [facility] [place] [address] [place] Eosinophils/100 WBC (Bld) 3.4 % Normal [facility] Comment on above: Order Comment: Speci men Type: BLOOD SPECIMENOrdering Facility: [facility] Address: [address] [place] [address] Performed By: #### 5 7021-8 ####[facility] LABCLIA [id number] [facility] [address], [place] [address] [place] Erythrocyte distribution width (RBC) [Ratio] 13.3 % Normal 11.5-15.0 [facility] Comment on above: Order Comment: Speci men Type: BLOOD SPECIMENOrdering Facility: [facility] Address: [address] [place] [address] Performed By: #### 5 7021-8 ####[facility] LABCLIA [id number] [place] [address] [place] Hematocrit (Bld) [Volume fraction] 43.7 % Normal 39.0-51.0 [facility] Comment on above: Order Comment: Speci men Type: BLOOD SPECIMENOrdering Facility: [facility] Address: [address] [place] [address] Performed By: #### 5 7021-8 ####[facility] LABCLIA [id number] [facility] [place] [id number] [place] Hemoglobin (Bld) [Mass/Vol] 14.3 g/dL Normal 13.0-17.0 [facility] Comment on above: Order Comment: Speci men Type: BLOOD SPECIMENOrdering Facility: [facility] Address: [address] [place] [address] Performed By: #### 5 7021-8 ####[facility] LABCLIA [id number] [address], [place] [address] [place] Immature granulocytes (Bld) [#/Vol] 10*3/uL Normal <0.10 [facility] Comment on above: Order Comment: Speci men Type: BLOOD SPECIMENOrdering Facility: [facility] Address: [address] [place] [address] Performed By: #### 5 7021-8 ####[facility] LABCLIA [id number] [address], [address] [place] Immature granulocytes/100 WBC (Bld) 0.1 % Normal [facility] Comment on above: Order Comment: Speci men Type: BLOOD SPECIMENOrdering Facility: [facility] Address: [address] [place] [address] Performed By: #### 5 7021-8 ####[facility] LABCLIA [id number] [address], [place] [address] [place] Lymphocytes (Bld) [#/Vol] 1.67 10*3/uL Normal 1.00-4.00 [facility] Comment on above: Order Comment: Speci men Type: BLOOD SPECIMENOrdering Facility: [facility] Address: [address] [place] [address] Performed By: #### 5 7021-8 ####[facility] LABCLIA [id number] [address], [facility]95 [place] Lymphocytes/100 WBC (Bld) 23.4 % Normal [facility] Comment on above: Order Comment: Speci men Type: BLOOD SPECIMENOrdering Facility: [facility] Address: [address] [place] [address] Performed By: #### 5 7021-8 ####[facility] LABCLIA [id number] [address] [place] [address] [place] MCH (RBC) [Entitic mass] 31.2 pg Normal 26.0-34.0 [facility] Comment on above: Order Comment: Speci men Type: BLOOD SPECIMENOrdering Facility: [facility] Address: [address] [place] [address] Performed By: #### 5 7021-8 ####[facility] LABCLIA [id number] [place] [address] [place] MCHC (RBC) [Mass/Vol] 32.7 g/dL Normal 30.5-36.0 [facility] Comment on above: Order Comment: Speci men Type: BLOOD SPECIMENOrdering Facility: [facility] Address: [address] [place] [address] Performed By: #### 5 7021-8 ####[facility] LABIA [id number] [place] [address] [place] MCV (RBC) [Entitic vol] 95.4 fL Normal 80.0-100.0 [facility] Comment on above: Order Comment: Speci men Type: BLOOD SPECIMENOrdering Facility: [facility] Address: [address] [place] [address] Performed By: #### 5 7021-8 ####[facility] LABIA [id number] [place] [address] [place] Monocytes (Bld) [#/Vol] 0.69 10*3/uL Normal <0.87 [facility] Comment on above: Order Comment: Speci men Type: BLOOD SPECIMENOrdering Facility: [facility] Address: [address] [place] [address] Performed By: #### 5 7021-8 ####[facility] LABCLIA [id number] [address] [place] Monocytes/100 WBC (Bld) 9.7 % Normal [facility] Comment on above: Order Comment: Speci men Type: BLOOD SPECIMENOrdering Facility: [facility] Address: [address] [place] [address] Performed By: #### 5 7021-8 ####[facility] LABCLIA [id number] [place] [address] [place] Neutrophils (Bld) [#/Vol] 4.47 10*3/uL Normal 1.45-7.50 [facility] Comment on above: Order Comment: Speci men Type: BLOOD SPECIMENOrdering Facility: [facility] Address: [address] [place] [address] Performed By: #### 5 7021-8 ####[facility] LABCLIA [id number] [place] [address] [place] Neutrophils/100 WBC (Bld) 62.7 % Normal [facility] Comment on above: Order Comment: Speci men Type: BLOOD SPECIMENOrdering Facility: [facility] Address: [address] [place] [address] Performed By: #### 5 7021-8 ####[facility] LABCLIA [id number] [place] [address] [place] Nucleated RBC (Bld) [#/Vol] 10*3/uL Normal <0.01 [facility] Comment on above: Order Comment: Speci men Type: BLOOD SPECIMENOrdering Facility: [facility] Address: [address] [place] [address] Performed By: #### 5 7021-8 ####[facility] LABCLIA [id number] [facility] [address], [facility]95 [place] Nucleated RBC/100 WBC (Bld) [Ratio] 0.0 /100 WBC Normal [facility] Comment on above: Order Comment: Speci men Type: BLOOD SPECIMENOrdering Facility: [facility] Address: [address] [place] [address] Performed By: #### 5 7021-8 ####[facility] LABCLIA [id number] [place] [id number] [place] Platelet mean volume (Bld) [Entitic vol] 11.9 fL Normal 9.0-12.7 [facility] Comment on above: Order Comment: Speci men Type: BLOOD SPECIMENOrdering Facility: [facility] Address: [address] [place] [address] Performed By: #### 5 7021-8 ####[facility] LABIA [id number] [place] [address] [place] Platelets (Bld) [#/Vol] 137 10*3/uL Low 150-400 [facility] Comment on above: Order Comment: Speci men Type: BLOOD SPECIMENOrdering Facility: [facility] Address: [address] [place] [address] Performed By: #### 5 7021-8 ####[facility] LABIA [id number] [place] [address] [place] RBC (Bld) [#/Vol] 4.58 10*6/uL Normal 4.20-6.00 [facility] Comment on above: Order Comment: Speci men Type: BLOOD SPECIMENOrdering Facility: [facility] Address: [address] [place] [address] Performed By: #### 5 7021-8 ####[facility] LABIA [id number] [place] [id number] [place] WBC (Bld) [#/Vol] 7.13 10*3/uL Normal 3.70-11.00 [facility] Comment on above: Order Comment: Speci men Type: BLOOD SPECIMENOrdering Facility: [facility] Address: [address] [place] [address] Performed By: #### 5 7021-8 ####[facility] LABIA [id number] [place] [id number] [place] CNOVon 01-20-2025 CNOV Office Visit (INTMWS ) MARSHAL CARRILLO ([id number]) 1945 M Date Time Provider Department 01/20/25 9:20 AM AMILCAR TAMAYO INTMWS During your visit today, we recorded the following information about you: Pulse Respiration Blood pressure Weight 59/minute 16/minute 115/65 75 kg Amilcar Tamayo MD 01/20/2025 10:18 AM Signed This note was created using Crowdtap. Subjective Marshal Carrillo is a 79 year old male. Patient presents with: F/U 6 Month Roscoe Carrillo is a 79-year-old male with a history of idiopathic pulmonary fibrosis, presenting for a 6-month follow-up visit. Roscoe reports a recent diagnosis of idiopathic pulmonary fibrosis, which has necessitated modifications to his outdoor activities. He experiences dyspnea when walking on inclines but can ascend a flight of stairs at home without difficulty. 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 He is not currently using supplemental oxygen and hopes to avoid it for as long as possible. He is currently taking Ofev for his condition. Last night, Roscoe experienced nausea after consuming meals in an unusual order while visiting his sister. He attempted to induce emesis but was unsuccessful. He requests a hemoglobin test due to a history of a bleeding ulcer 6-7 years ago, which resulted in significant hematemesis and hospitalization. He is concerned about a potential recurrence of the ulcer. He is currently taking Protonix and reports occasional heartburn at night if he discontinues the medication. He denies any current symptoms of melena or hematemesis. PAST MEDICAL HISTORY Diagnosis Date Cardiac dysrhythmia, unspecified 07/30/2007 history of paroxysmal atrial and ventricular complexes and nonsustained ventricular tachycardia Coronary atherosclerosis of unspecified type of vessel, [place] or graft 07/30/2007 [place] Date: 1985. 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 Latif Ventricular tachycardia (HCC) 12/06/2022 Current Outpatient Medications Medication Sig nintedanib (OFEV) 150 mg capsule TAKE 1 CAPSULE BY MOUTH TWICE A DAY 12 HOURS APART WITH FOOD pantoprazole DR (PROTONIX) 20 mg tablet Take 1 tablet by mouth once daily. rosuvastatin (CRESTOR) 40 mg tablet Take 1 tablet by mouth daily at bedtime. metoprolol succinate ER (TOPROL XL) 25 mg 24 hr tablet Take 1 tablet by mouth once daily. ezetimibe (ZETIA) 10 mg tablet Take 1 tablet by mouth once daily. clopidogrel (PLAVIX) 75 mg tablet Take 1 tablet by mouth once daily. nitroglycerin sublingual (NITROSTAT) 0.4 mg SL tablet Dissolve 1 tablet under the tongue as needed for chest pain. If no pain relief call 911. coenzyme Q10 (COENZYME Q-10) 100 mg cap capsule Take 100 mg by mouth once daily. Lutein 6 mg ORAL Cap Take one(1) tablet daily. No current facility-administered medications for this visit. Review of Systems Objective BP 115/65 Pulse (!) 59 Resp 16 Wt 75 kg (165 lb 5.5 oz) BMI 22.42 kg/m? Last 5 Encounter Wt Readings: Date: Wt: 01/20/2025 75 kg (165 lb 5.5 oz) 01/13/2025 77.1 kg (170 lb) 12/31/2024 76.7 kg (169 lb) 08/28/2024 79.8 kg (176 lb) 07/08/2024 79.8 kg (176 lb) No waist measurement recorded Estimated body mass index is 22.42 kg/m? as calculated from the following: Height as of 07/08/24: 182.9 cm (6'). Weight as of this encounter: 75 kg (165 lb 5.5 oz). Last 5 Encounter BP Readings: Date: BP: 01/20/2025 115/65 07/08/2024 153/73 07/01/2024 138/54 05/28/2024 120/65 01/09/2024 110/68 Physical Exam Vitals reviewed. Constitutional: Appearance: Normal appearance. Eyes: Conjunctiva/sclera: Conjunctivae normal. Cardiovascular: Rate and [...] Content: Thought content normal. Judgment: Judgment normal. Latest Ref Rng 06/12/2023 07/10/2023 (more content not included)... Normal [facility] Basic metabolic 2000 panelon 01-13-2025 Anion gap [Moles/Vol] 12 mmol/L Normal 8-15 [facility] Comment on above: Order Comment: Speci men Type: BLOOD SPECIMENOrdering Facility: [facility] Address: [address] [place], [place] [address] Performed By: #### 2 4325-3, 2777-1, 57862-4 ####[facility] [id number] [place] [address] [place] Calcium [Mass/Vol] 9.2 mg/dL Normal 8.5-10.2 [facility] Comment on above: Order Comment: Speci men Type: BLOOD SPECIMENOrdering Facility: [facility] Address: [address] [place] [address] Performed By: #### 2 4325-3, 2777-1, 04046-2 ####[facility] [id number] [place] [address] [place] Chloride [Moles/Vol] 104 mmol/L Normal 98-107 [facility] Comment on above: Order Comment: Speci men Type: BLOOD SPECIMENOrdering Facility: [facility] Address: [address] [place] [address] Performed By: #### 2 4325-3, 2777-1, 19832-0 ####[facility] [id number] [place] [address] [place] CO2 [Moles/Vol] 24 mmol/L Normal 22-30 [facility] Comment on above: Order Comment: Speci men Type: BLOOD SPECIMENOrdering Facility: [facility] Address: [address] [place] [address] Performed By: #### 2 4325-3, 2777-1, 55706-5 ####[facility] [id number] [place] [address] [place] Creatinine [Mass/Vol] 0.86 mg/dL Normal 0.73-1.22 [facility] Comment on above: Order Comment: Speci men Type: BLOOD SPECIMENOrdering Facility: [facility] Address: [address] [place] [address] Performed By: #### 2 4325-3, 2777-1, 50280-2 ####[facility] [id number] [place] [address] [place] Creatinine and Glomerular filtration rate.predicted panel (S/P/Bld) 87 mL/min/1.73m??? Normal >=60 [facility] Comment on above: Order Comment: Speci men Type: BLOOD SPECIMENOrdering Facility: [facility] Address: [address] [place] [address] Result Comment: Yoko mated Glomerular Filtration Rate (eGFR) is calculated using the 2020 CKD-EPI creatinine equation. This equation utilizes serum creatinine, sex, and age as parameters. The creatinine assay has traceable calibration to isotope dilution-mass spectrometry. Refer to KDIGO guidelines for clinical interpretation. In patients with unstable renal function, e.g. those with acute kidney injury, the eGFR may not accurately reflect actual GFR. Performed By: #### 2 4325-3, 2777-1, 25299-4 ####[facility] EMERALD COASTNCMALENA [id number] [place] [address] [place] Glucose [Mass/Vol] 80 mg/dL Normal 74-99 [facility] Comment on above: Order Comment: Speci men Type: BLOOD SPECIMENOrdering Facility: [facility] Address: [address] [place] [id number] Result Comment: The [place] Diabetes Association (ADA) provides guidance for cutoff values for fasting glucose and random glucose. The ADA defines fasting as no caloric intake for at least 8 hours. Fasting plasma glucose results between 100 to 125 mg/dL indicate increased risk for diabetes (prediabetes). Fasting plasma glucose results greater than or equal to 126 mg/dL meet the criteria for diagnosis of diabetes. In the absence of unequivocal hyperglycemia, results should be confirmed by repeat testing. In a patient with classic symptoms of hyperglycemia or hyperglycemic crisis, random plasma glucose results greater than or equal to 200 mg/dL meet the criteria for diagnosis of diabetes. Reference: Standards of Medical Care in Diabetes 2016, [place] [employer] Association. Diabetes Care. 2016.39(Suppl 1). Performed By: #### 2 4325-3, 2777-, ####[facility] EMERALD COASTNCLIA [id number] [place] [address] [place] Potassium [Moles/Vol] 3.8 mmol/L Normal 3.7-5.1 [facility] Comment on above: Order Comment: Speci men Type: BLOOD SPECIMENOrdering Facility: [facility] Address: [address] [place] [address] Performed By: #### 2 4325-3, 2777-, 53258-8 ####[facility] EMERALD COASTNCLIA [id number] [place] [address] [place] Sodium [Moles/Vol] 140 mmol/L Normal 136-144 [facility] Comment on above: Order Comment: Speci men Type: BLOOD SPECIMENOrdering Facility: [facility] Address: [address] [place] [address] Performed By: #### 2 4325-3, 2777-1, 07478-4 ####[facility] NELDAWNCLIA [id number] [place] [address] [place] Urea nitrogen [Mass/Vol] 12 mg/dL Normal 9-24 [facility] Comment on above: Order Comment: Speci men Type: BLOOD SPECIMENOrdering Facility: [facility] Address: [address] [place] [address] Performed By: #### 2 4325-3, 2777-1, 57372-2 ####[facility] EMERALD COASTNCLIA [id number] [place] [address] [place] Hepatic function 2000 panelo n 01-13-2025 Albumin [Mass/Vol] 3.8 g/dL Low 3.9-4.9 [facility] Comment on above: Order Comment: Speci men Type: BLOOD SPECIMENOrdering Facility: [facility] Address: [address] [place] [address] Performed By: #### 2 4325-3, 2777-1, 00069-1 ####[facility] EMERALD COASTNCLIA [id number] [place] [address] [place] ALP [Catalytic activity/Vol] 47 U/L Normal 38-113 [facility] Comment on above: Order Comment: Speci men Type: BLOOD SPECIMENOrdering Facility: [facility] Address: [address] [place] [address] Performed By: #### 2 4325-3, 2777-1, 61120-2 ####[facility]ITALWNCLIA [id number] [place] [address] [place] ALT [Catalytic activity/Vol] 28 U/L Normal 10-54 [facility] Comment on above: Order Comment: Speci men Type: BLOOD SPECIMENOrdering Facility: [facility] Address: [address] [place] [address] Performed By: #### 2 4325-3, 277-1, 34589-9 ####[facility] HEATHER LUTZSHANENCLIA [id number] [place] [address] [place] AST [Catalytic activity/Vol] 35 U/L Normal 14-40 [facility] Comment on above: Order Comment: Speci men Type: BLOOD SPECIMENOrdering Facility: [facility] Address: [address] [place] [address] Performed By: #### 2 4325-3, 2777-1, 86728-7 ####[facility] NELDATesfayeNCMALENAA [id number] [place] [address] [place] Bilirubin [Mass/Vol] 0.5 mg/dL Normal 0.2-1.3 [facility] Comment on above: Order Comment: Speci men Type: BLOOD SPECIMENOrdering Facility: [facility] Address: [address] [place] [address] Performed By: #### 2 4325-3, 277-1, 78484-8 ####[facility] EMERALD COASTNCLIA [id number] [place] [address] [place] Bilirubin.conjugate d [Mass/Vol] 0.2 mg/dL Normal <0.3 [facility] Comment on above: Order Comment: Speci men Type: BLOOD SPECIMENOrdering Facility: [facility] Address: [address] [place] [address] Performed By: #### 2 4325-3, 277-1, 15768-0 ####[facility]ITALWNCLIA [id number] [place] [address] [place] Protein [Mass/Vol] 6.5 g/dL Normal 6.3-8.0 [facility] Comment on above: Order Comment: Speci men Type: BLOOD SPECIMENOrdering Facility: [facility] Address: [facility] [place] [place] [address] Performed By: #### 2 4325-3, 2777-1, 40789-4 ####[facility] [id number] [place] [address] [place] LUNG DIFFUSION CAPACITY (PASCUAL O)on 01-13-2025 LUNG DIFFUSION CAPACITY (DLCO) [facility] [address] [place] [id number] Test Date: 2025-01-13 Pat Name: MARSHAL CARRILLO Department: Room: Gender: Male Configuration Management Specialist: : 1945 Requested By: Order Number: [id number] Reading MD: Millie Chester MD Interpretive Statements Medications and Allergies were reviewed for possible drug interactions per policy. No contraindications or sensitivities were noted. Meds taken: No inhaled respiratory medications taken before testing. The two largest FVCs were not repeatable. The two largest FEV1s were repeatable. incomplete inspiratory prior to forced exhalation. Current ATS/ERS acceptability and repeatability standards for lung volumes met. Current ATS/ERS acceptability and repeatability standards for DLCO met with 2 acceptable maneuvers. IMPRESSION: Spirometry is normal. Decrease in TLC indicates restriction. The diffusing capacity (uncorrected for hemoglobin) is reduced. The reduced kCO (DLCO/VA) reflects an alteration of the normal transfer/diffusion of CO from the alveolar regions to the blood. Clinical correlation recommended. Electronically Signed On 01-13-2025 18:02:16 EDT by Millie Chester MD ID: [id number] Name: MARSHAL CARRILLO Race: White Ht: 71.50 in Wt: 170.00 lbs Age: 79 Gender: Male : 1945 Dx: Idiopathic pulmonary fibrosis Smoking Hx: Non-smoker Doctor: HOMA COLEMAN Test Date: 01/13/2025 Site: [facility] Tech: Alondra Merlos PRE-BRONCH POST-BRONCH Kal LLN Pred ULN %Pred ZScore Kal %Pred %Chg ZScore SPIROMETRY FVC 3.60 2.94 3.99 5.07 90 -0.61 FEV1 2.81 2.09 2.90 3.67 96 -0.19 FEV1/FVC 0.78 0.61 0.75 0.86 104 0.41 FEFMax 8.40 4.99 7.40 9.82 113 0.68 FEF50 3.65 1.78 3.90 6.03 93 -0.20 FIF50 7.33 FEF50/FIF50 0.50 90-100 FIVC 3.49 YBL72-73 2.46 0.76 2.05 3.97 119 0.40 ExpiredTime 5.29 TimeToFEFMax 0.09 FABY 0.15 VolExtrap% 4 LUNG VOLUMES FRC(Pleth) 3.66 3.00 4.29 5.89 85 -0.76 ERV 2.04 1.33 153 RV(Pleth) 1.64 1.61 2.93 4.57 55 -1.60 SVC 3.77 2.94 3.99 5.07 94 -0.34 IC 1.71 2.66 64 TLC(Pleth) 5.37 5.77 7.42 9.10 72 -2.05 RV/TLC(Pleth) 31 27 41 55 75 -1.22 LUNG DIFFUSION DLCOunc 13.75 18.19 25.24 33.72 54 -2.89 DLCOStdPB 13.50 18.19 25.24 33.72 53 -2.97 VA 5.29 5.31 6.63 8.05 79 -1.67 Kco 2.55 2.77 3.82 4.98 66 -2.02 Comments: Medications and Allergies were reviewed for possible drug interactions per policy. No contraindications or sensitivities were noted. Meds taken: No inhaled respiratory medications taken before testing. The two largest FVCs were not repeatable. The two largest FEV1s were repeatable. incomplete inspiratory prior to forced exhalation. Current ATS/ERS acceptability and repeatability standards for lung volumes met. Current ATS/ERS acceptability and repeatability standards for DLCO met with 2 acceptable maneuvers. Normal [facility] LUNG VOLUMESon 01-13-2025 LUNG VOLUMES [facility] [address] [place] [address] Test Date: 2025-01-13 Pat Name: MARSHAL CARRILLO Department: Room: Gender: Male Configuration Management Specialist: : 1945 Requested By: Order Number: [id number] Reading MD: Millie Chester MD Interpretive Statements Medications and Allergies were reviewed for possible drug interactions per policy. No contraindications or sensitivities were noted. Meds taken: No inhaled respiratory medications taken before testing. The two largest FVCs were not repeatable. The two largest FEV1s were repeatable. incomplete inspiratory prior to forced exhalation. Current ATS/ERS acceptability and repeatability standards for lung volumes met. Current ATS/ERS acceptability and repeatability standards for DLCO met with 2 acceptable maneuvers. IMPRESSION: Spirometry is normal. Decrease in TLC indicates restriction. The diffusing capacity (uncorrected for hemoglobin) is reduced. The reduced kCO (DLCO/VA) reflects an alteration of the normal transfer/diffusion of CO from the alveolar regions to the blood. Clinical correlation recommended. Electronically Signed On 01-13-2025 18:02:16 EDT by Millie Chester MD ID: [id number] Name: MARSHAL CARRILLO Race: White Ht: 71.50 in Wt: 170.00 lbs Age: 79 Gender: Male : 1945 Dx: Idiopathic pulmonary fibrosis Smoking Hx: Non-smoker Doctor: HOMA COLEMAN Test Date: 01/13/2025 Site: [facility] Tech: Alondra Merlos PRE-BRONCH POST-BRONCH Kal LLN Pred ULN %Pred ZScore Kal %Pred %Chg ZScore SPIROMETRY FVC 3.60 2.94 3.99 5.07 90 -0.61 FEV1 2.81 2.09 2.90 3.67 96 -0.19 FEV1/FVC 0.78 0.61 0.75 0.86 104 0.41 FEFMax 8.40 4.99 7.40 9.82 113 0.68 FEF50 3.65 1.78 3.90 6.03 93 -0.20 FIF50 7.33 FEF50/FIF50 0.50 90-100 FIVC 3.49 CYC43-05 2.46 0.76 2.05 3.97 119 0.40 ExpiredTime 5.29 TimeToFEFMax 0.09 FABY 0.15 VolExtrap% 4 LUNG VOLUMES FRC(Pleth) 3.66 3.00 4.29 5.89 85 -0.76 ERV 2.04 1.33 153 RV(Pleth) 1.64 1.61 2.93 4.57 55 -1.60 SVC 3.77 2.94 3.99 5.07 94 -0.34 IC 1.71 2.66 64 TLC(Pleth) 5.37 5.77 7.42 9.10 72 -2.05 RV/TLC(Pleth) 31 27 41 55 75 -1.22 LUNG DIFFUSION DLCOunc 13.75 18.19 25.24 33.72 54 -2.89 DLCOStdPB 13.50 18.19 25.24 33.72 53 -2.97 VA 5.29 5.31 6.63 8.05 79 -1.67 Kco 2.55 2.77 3.82 4.98 66 -2.02 Comments: Medications and Allergies were reviewed for possible drug interactions per policy. No contraindications or sensitivities were noted. Meds taken: No inhaled respiratory medications taken before testing. The two largest FVCs were not repeatable. The two largest FEV1s were repeatable. incomplete inspiratory prior to forced exhalation. Current ATS/ERS acceptability and repeatability standards for lung volumes met. Current ATS/ERS acceptability and repeatability standards for DLCO met with 2 acceptable maneuvers. Normal [facility] Phosphate SerPl-ncon 01-13 Phosphate [Mass/Vol] 2.6 mg/dL Low 2.7-4.8 [facility] Comment on above: Order Comment: Speci men Type: BLOOD SPECIMENOrdering Facility: [facility] Address: [address] [place] [address] Performed By: #### 2 4325-3, 2777-1, 39696-0 ####[facility] [id number] [place] [address] [place] SPIROMETRY WITH DILATOR IF O BSTRUCTEDon 01-13-2025 SPIROMETRY WITH DILATOR IF OBSTRUCTED [facility] [place] [id number] Test Date: 2025-01-13 Pat Name: MARSHAL CARRILLO Department: Room: Gender: Male Configuration Management Specialist: : 1945 Requested By: Order Number: [id number] Reading MD: Millie Chester MD Interpretive Statements Medications and Allergies were reviewed for possible drug interactions per policy. No contraindications or sensitivities were noted. Meds taken: No inhaled respiratory medications taken before testing. The two largest FVCs were not repeatable. The two largest FEV1s were repeatable. incomplete inspiratory prior to forced exhalation. Current ATS/ERS acceptability and repeatability standards for lung volumes met. Current ATS/ERS acceptability and repeatability standards for DLCO met with 2 acceptable maneuvers. IMPRESSION: Spirometry is normal. Decrease in TLC indicates restriction. The diffusing capacity (uncorrected for hemoglobin) is reduced. The reduced kCO (DLCO/VA) reflects an alteration of the normal transfer/diffusion of CO from the alveolar regions to the blood. Clinical correlation recommended. Electronically Signed On 01-13-2025 18:02:16 EDT by Millie Chester MD ID: [id number] Name: MARSHAL CARRILLO Race: White Ht: 71.50 in Wt: 170.00 lbs Age: 79 Gender: Male : 1945 Dx: Idiopathic pulmonary fibrosis Smoking Hx: Non-smoker Doctor: HOMA COLEMAN Test Date: 01/13/2025 Site: Tech: Alondra Melros PRE-BRONCH POST-BRONCH Kal LLN Pred ULN %Pred ZScore Kal %Pred %Chg ZScore SPIROMETRY FVC 3.60 2.94 3.99 5.07 90 -0.61 FEV1 2.81 2.09 2.90 3.67 96 -0.19 FEV1/FVC 0.78 0.61 0.75 0.86 104 0.41 FEFMax 8.40 4.99 7.40 9.82 113 0.68 FEF50 3.65 1.78 3.90 6.03 93 -0.20 FIF50 7.33 FEF50/FIF50 0.50 90-100 FIVC 3.49 CQZ80-38 2.46 0.76 2.05 3.97 119 0.40 ExpiredTime 5.29 TimeToFEFMax 0.09 FABY 0.15 VolExtrap% 4 LUNG VOLUMES FRC(Pleth) 3.66 3.00 4.29 5.89 85 -0.76 ERV 2.04 1.33 153 RV(Pleth) 1.64 1.61 2.93 4.57 55 -1.60 SVC 3.77 2.94 3.99 5.07 94 -0.34 IC 1.71 2.66 64 TLC(Pleth) 5.37 5.77 7.42 9.10 72 -2.05 RV/TLC(Pleth) 31 27 41 55 75 -1.22 LUNG DIFFUSION DLCOunc 13.75 18.19 25.24 33.72 54 -2.89 DLCOStdPB 13.50 18.19 25.24 33.72 53 -2.97 VA 5.29 5.31 6.63 8.05 79 -1.67 Kco 2.55 2.77 3.82 4.98 66 -2.02 Comments: Medications and Allergies were reviewed for possible drug interactions per policy. No contraindications or sensitivities were noted. Meds taken: No inhaled respiratory medications taken before testing. The two largest FVCs were not repeatable. The two largest FEV1s were repeatable. incomplete inspiratory prior to forced exhalation. Current ATS/ERS acceptability and repeatability standards for lung volumes met. Current ATS/ERS acceptability and repeatability standards for DLCO met with 2 acceptable maneuvers. FVC_PRE (L) : 3.60 L FVC_PRED (L) : 3.99 L FVC_LLN (L) : 2.94 L FVC_ULN (L) : 5.07 L FEV1_PRE (L) : 2.81 L FEV1_PRED (L) : 2.90 L FEV1_LLN (L) : 2.09 L FEV1_ULN (L) : 3.67 L FEV1/FVC_PRE (%) : 78 % FEV1/FVC_PRED (%) : 75 % FEV1/FVC_LLN (%) : 61 % BJG83_JAR (L/S) : 8.21 L/S UHA17_LEA (L/S) : 0.72 L/S EZR79_WKPW (L/S) : 0.50 L/S WOW70_QAD (L/S) : 0.17 L/S BKC10_NAP (L/S) : 1.46 L/S MAN58-87%_PRE (L/S) : 2.46 L/S BNC19-20%_PRED (L/S) : 2.05 L/S ZTD25-30%_LLN (L/S) : 0.76 L/S PEF_PRE (L/S) : 8.40 L/S PEFMAX_LLN (L/S) : 4.99 L/S PEFMAX_ULN (L/S) : 9.82 L/S VC BOX (L) : 3.77 L SVC_PRED (L) : 3.99 L/S SVC_LLN (L) : 2.94 L/S SVC_ULN (L/S) : 5.07 L/S IC BOX (L) : 1.71 L IC_PRED (L) : 2.66 L/S ERV BOX (L) : 2.04 L ERV_PREDICTED (L) : 1.33 L/S DLCO (ML/MIN/MMHG) : 13.75 ml/min/mmHg DLCO_PRED (ML/MIN/MMHG) : 25.24 ml/min/mmHg DLCO_LLN(ML/MIN/MMHG) : 18.19 ml/min/mmHg DLCO_ULN (ML/MIN/MMHG) : 33.72 ml/min/mmHg FET_PRE (S) : 5.29 S FRC BOX (L) : 3.66 L RV BOX (L) : 1.64 L RV_PLETH_PRED (L) : 2.93 L TLC BOX (L) : 5.37 L TLC_PLETH_PRED (L) : 7.42 L RV/TLC BOX (%) : 31 % RV_TLC_PLETH_PRED (%) : 41 % VA (L) : 5.29 L VA_PRD (L) : 6.63 L DLCO/VA (ML/MIN/MMHG/L) : 0.03 ml/min/mmHg/L DLCO_VA_PRED (L) : 0.03 ml/min/mmHg/L DLCOCOR (ML/MIN/MMHG) : 13.50 ml/min/mmHg DLCOCOR_PRED (ML/MIN/MMHG) : 25.24 ml/min/mmHg DLCO/VACOR (ML/MIN/MMHG/L) : 0.03 ml/min/mmHg/L Normal [facility] CNOVon 12-31-2024 CNOV Office Visit (PULMWS ) MARSHAL CARRILLO ([id number]) 1945 M Date Time Provider Department 12/31/24 10:00 AM HOMA COLEMAN PULMWS During your visit today, we recorded the following information about you: Weight 76.7 kg Homa Coleman, TAPER OPERATOR.LARGE ANIMAL VETERINARIAN 12/31/2024 5:53 PM Signed Pulmonary Medicine Patients name: Marshal Malhotra PCP: Amilcar Tamayo MD CC: follow-up HPI: Marshal Carrillo is a 79 year old male former 25 pack year smoker, quitting in 1985 with PMH significant for CAD s/p CABG/stents, HLD, VT, PUD with GIB, and IPF. Current therapy consists of OFEV. He presents today for follow-up. JACEY 08/2024. He has been on Ofev for approximately 5 months and has tolerated it well. Denies concerns with diarrhea, nausea. He has noticed a decrease in appetite and has lost 7lbs over the past few months. Since his last visit, he notes a subtle decline in exertional activity. He consistently walks 1.5-2 miles per day but has noted feeling more winded on the last half mile. Also has noticed exertional dyspnea with yard work/mowing when this wasn't a concern prior. Continues to deny coughing, wheezing or chest tightness. Has thick phelgm in his throat and rhinorrhea despite normal allergy testing. No fevers, chills, or night sweats. No recent hospitalizations or ED visits or upper respiratory infections. PAST MEDICAL HISTORY Diagnosis Date Cardiac dysrhythmia, unspecified 07/30/2007 history of paroxysmal atrial and ventricular complexes and nonsustained ventricular tachycardia Coronary atherosclerosis of unspecified type of vessel, [place] or graft 07/30/2007 [place] Date: 1985. 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 Latif Ventricular tachycardia (HCC) 12/06/2022 Allergies: No Known Allergies Medication List Accurate as of December 30, 2024 2:50 PM. If you have any questions, ask your nurse or doctor. CONTINUE taking these medications clopidogrel 75 mg tablet Commonly known as: PLAVIX Take 1 tablet by mouth once daily. coenzyme Q10 100 mg Cap capsule Commonly known as: COENZYME Q-10 ezetimibe 10 mg tablet Commonly known as: ZETIA Take 1 tablet by mouth once daily. lutein 6 mg Cap metoprolol succinate ER 25 mg 24 hr tablet Commonly known as: TOPROL XL Take 1 tablet by mouth once daily. nitroglycerin sublingual 0.4 mg SL tablet Commonly known as: NITROSTAT Dissolve 1 tablet under the tongue as needed for chest pain. If no pain relief call 911. OFEV 150 mg capsule Generic drug: nintedanib TAKE 1 CAPSULE BY MOUTH TWICE A DAY 12 HOURS APART WITH FOOD pantoprazole DR 20 mg tablet Commonly known as: PROTONIX Take 1 tablet by mouth once daily. rosuvastatin 40 mg tablet Commonly known as: CRESTOR Take 1 tablet by mouth daily at bedtime. DATA: I personally reviewed and analyzed all labs, radiographs and available pulmonary function testing PFT: 04/2024 Spirometry is normal. Minimal reduction in diffusion that corrects for alveolar volume. CXR: Last XR Chest - Impression Only XR CHEST 2V FRONTAL/LAT Exam End: 04/30/2024 12:18 PM (Final result) Impression: IMPRESSION: Findings as described above are most consistent with chronic interstitial disease. No superimposed acute process Conveyor System Operator: PAMELA Transcribe Date/Time: Apr 30 2024 4:22P... CT Chest: 05/2024 IMPRESSION: 1. Bilateral reticular opacities in a prominently peripheral and lower lung distribution with interstitial lung disease 2. There is a 4 mm nodule in the anterior left upper lobe 3. No thoracic lymphadenopathy Conveyor System Operator: PSCMegan Transcribe Date/Time: May 21 2024 12:42P Dictated by : KANDY MOTA MD This examination was interpreted and the report reviewed and electronically signed by: KANDY MOTA MD on May 21 2024 1:33PM EST Results-Findings * * *Final Report* * * DATE OF EXAM: May 16 2024 10:15AM [facility] 0541 - CT CHEST WO IVCON / PROCEDURE REASON: Interstitial pulmonary disease (HCC) * * * * Physician Interpretation * * * * EXAMINATION: CHEST CT WITHOUT CONTRAST CLINICAL HISTORY: Interstitial pulmonary disease Technique: Spiral CT acquisition of the chest from the thoracic inlet to the upper abdomen without contrast. MQ: CTCWO_6 CT Radiation dose: Integrated Dose-length product (DLP) (more content not included)... Normal [facility] GRPon 10-29 A. alternata IgE Qn (S) <0.35 Normal <0.35 [facility] Comment on above: Order Comment: Speci men Type: BLOOD SPECIMENOrdering Facility: [facility] Address: [address] [place] [address] Performed By: #### G RTLKS ####[facility]PITAL[facility] [id number] [place] [address] [place] A. alternata IgE RAST class (S) Class 0 Normal Class 0 [facility] Comment on above: Order Comment: Speci men Type: BLOOD SPECIMENOrdering Facility: [facility] Address: [address] [place] [address] Performed By: #### G RTLKS ####[facility] LABIA [id number] [place] [address] [place] house dust mite IgE Qn (S) <0.35 Normal <0.35 [facility] Comment on above: Order Comment: Speci men Type: BLOOD SPECIMENOrdering Facility: [facility] Address: [address] [place] [address] Performed By: #### G RTLKS ####[facility] LABCLIA [id number] [place] [address] [place] house dust mite IgE RAST class (S) Class 0 Normal Class 0 [facility] Comment on above: Order Comment: Speci men Type: BLOOD SPECIMENOrdering Facility: [facility] Address: [address] [place] [address] Performed By: #### G RTLKS ####[facility] LABCLIA [id number] [place] [address] [place] C. herbarum IgE Qn (S) <0.35 Normal <0.35 [facility] Comment on above: Order Comment: Speci men Type: BLOOD SPECIMENOrdering Facility: [facility] Address: [address] [place] [address] Performed By: #### G RTLKS ####[facility] LABCLIA [id number] [place] [address] [place] C. herbarum IgE RAST class (S) Class 0 Normal Class 0 [facility] Comment on above: Order Comment: Speci men Type: BLOOD SPECIMENOrdering Facility: [facility] Address: [address] [place] [address] Performed By: #### G RTLKS ####[facility] LABCLIA [id number] [place] [address] [place] Cat dander IgE Qn (S) <0.35 Normal <0.35 [facility] Comment on above: Order Comment: Speci men Type: BLOOD SPECIMENOrdering Facility: [facility] Address: [address] [place] [address] Performed By: #### G RTLKS ####[facility] LABCLIA [id number] [place] [address] [place] Cat dander IgE RAST class (S) Class 0 Normal Class 0 [facility] Comment on above: Order Comment: Speci men Type: BLOOD SPECIMENOrdering Facility: [facility] Address: [address] [place] [address] Performed By: #### G RTLKS ####[facility] LABCLIA [id number] [address] STATES OF [facility] Common Ragweed IgE Qn (S) <0.35 Normal <0.35 [facility] Comment on above: Order Comment: Speci men Type: BLOOD SPECIMENOrdering Facility: [facility] Address: [address] [place] [address] Performed By: #### G RTLKS ####[facility] LABCLIA [id number] [address] STATES OF [facility] Common Ragweed IgE RAST class (S) Class 0 Normal Class 0 [facility] Comment on above: Order Comment: Speci men Type: BLOOD SPECIMENOrdering Facility: [facility] Address: [address] [place] [address] Performed By: #### G RTLKS ####[facility] LABCLIA [id number] [address] [place] Dog dander IgE Qn (S) <0.35 Normal <0.35 [facility] Comment on above: Order Comment: Speci men Type: BLOOD SPECIMENOrdering Facility: [facility] Address: [address] [place] [address] Performed By: #### G RTLKS ####[facility] LABCLIA [id number] [address] [place] Dog dander IgE RAST class (S) Class 0 Normal Class 0 [facility] Comment on above: Order Comment: Speci men Type: BLOOD SPECIMENOrdering Facility: [facility] Address: [address] [place] [address] Performed By: #### G RTLKS ####[facility] LABCLIA [id number] [facility] [address] [place] [address] [place] Goosefoot IgE Qn (S) <0.35 Normal <0.35 [facility] Comment on above: Order Comment: Speci men Type: BLOOD SPECIMENOrdering Facility: [facility] Address: [address] [place] [address] Performed By: #### G RTLKS ####[facility] LABCLIA [id number] [facility] [address], [place] [address] [place] Goosefoot IgE RAST class (S) Class 0 Normal Class 0 [facility] Comment on above: Order Comment: Speci men Type: BLOOD SPECIMENOrdering Facility: [facility] Address: [address] [place] [address] Performed By: #### G RTLKS ####[facility] LABCLIA [id number] [facility] [address], [place] [address] [place] [facility] blue grass IgE Qn (S) <0.35 Normal <0.35 [facility] Comment on above: Order Comment: Speci men Type: BLOOD SPECIMENOrdering Facility: [facility] Address: [address] [place] [address] Performed By: #### G RTLKS ####[facility] LABCLIA [id number] [facility] [address], [place] [address] [place] blue grass IgE RAST class (S) Class 0 Normal Class 0 [facility] Comment on above: Order Comment: Speci men Type: BLOOD SPECIMENOrdering Facility: [facility] Address: [address] [place], [place] [id number] Performed By: #### G RTLKS ####[facility] LABCLIA [id number] [facility] [address] [place] [address] [place] Karthik IgE Qn (S) <0.35 Normal <0.35 [facility] Comment on above: Order Comment: Speci men Type: BLOOD SPECIMENOrdering Facility: [facility] Address: [address] [place] [address] Performed By: #### G RTLKS ####[facility] LABCLIA [id number] [address] [place] [address] [place] Karthik IgE RAST class (S) Class 0 Normal Class 0 [facility] Comment on above: Order Comment: Speci men Type: BLOOD SPECIMENOrdering Facility: [facility] Address: [address] [place] [address] Performed By: #### G RTLKS ####[facility] LABCLIA [id number] [address], [facility]95 [place] IgE Qn (S) <0.35 Normal <0.35 [facility] Comment on above: Order Comment: Speci men Type: BLOOD SPECIMENOrdering Facility: [facility] Address: [address] [place] [address] Performed By: #### G RTLKS ####[facility] LABCLIA [id number] [address], [facility] [place] IgE RAST class (S) Class 0 Normal Class 0 [facility] Comment on above: Order Comment: Speci men Type: BLOOD SPECIMENOrdering Facility: [facility] Address: [address] [place] [address] Performed By: #### G RTLKS ####[facility] LABCLIA [id number] [address] [place] [address] [place] Basic metabolic 2000 panelon 10-29-2024 Anion gap [Moles/Vol] 8 mmol/L Normal 8-15 [facility] Comment on above: Order Comment: Speci men Type: BLOOD SPECIMENOrdering Facility: [facility] Address: [address] [place] [address] Performed By: #### 2 4321-2 ####[facility] [id number] [place] [address] [place] Calcium [Mass/Vol] 9.0 mg/dL Normal 8.5-10.2 [facility] Comment on above: Order Comment: Speci men Type: BLOOD SPECIMENOrdering Facility: [facility] Address: [address] [place] [address] Performed By: #### 2 4321-2 ####[facility] HOSPITALWVTLIA [id number] [place] [address] [place] Chloride [Moles/Vol] 105 mmol/L Normal 98-107 [facility] Comment on above: Order Comment: Speci men Type: BLOOD SPECIMENOrdering Facility: [facility] Address: [address] [place], [place] [address] Performed By: #### 2 4321-2 ####[facility] [id number] [place] [address] [place] CO2 [Moles/Vol] 27 mmol/L Normal 22-30 [facility] Comment on above: Order Comment: Speci men Type: BLOOD SPECIMENOrdering Facility: [facility] Address: [address] [place] [address] Performed By: #### 2 4321-2 ####[facility]ITALLIA [id number] [place] [address] [place] Creatinine [Mass/Vol] 0.83 mg/dL Normal 0.73-1.22 [facility] Comment on above: Order Comment: Speci men Type: BLOOD SPECIMENOrdering Facility: [facility] Address: [address] [place] [address] Performed By: #### 2 4321-2 ####[facility] COASTNCLIA [id number] [place] [address] [place] Creatinine and Glomerular filtration rate.predicted panel (S/P/Bld) 88 mL/min/1.73m??? Normal >=60 [facility] Comment on above: Order Comment: [place] fields Type: BLOOD SPECIMENOrdering Facility: [facility] Address: [address] [place] [id number] Result Comment: Yoko mated Glomerular Filtration Rate (eGFR) is calculated using the 2020 CKD-EPI creatinine equation. This equation utilizes serum creatinine, sex, and age as parameters. The creatinine assay has traceable calibration to isotope dilution-mass spectrometry. Refer to KDIGO guidelines for clinical interpretation. In patients with unstable renal function, e.g. those with acute kidney injury, the eGFR may not accurately reflect actual GFR. Performed By: #### 2 4321-2 ####[facility] [id number] [place] [address] [place] Glucose [Mass/Vol] 97 mg/dL Normal 74-99 [facility] Comment on above: Order Comment: Carlton fields Type: BLOOD SPECIMENOrdering Facility: [facility] Address: [address] [place] [address] Result Comment: The [place] Diabetes Association (ADA) provides guidance for cutoff values for fasting glucose and random glucose. The ADA defines fasting as no caloric intake for at least 8 hours. Fasting plasma glucose results between 100 to 125 mg/dL indicate increased risk for diabetes (prediabetes). Fasting plasma glucose results greater than or equal to 126 mg/dL meet the criteria for diagnosis of diabetes. In the absence of unequivocal hyperglycemia, results should be confirmed by repeat testing. In a patient with classic symptoms of hyperglycemia or hyperglycemic crisis, random plasma glucose results greater than or equal to 200 mg/dL meet the criteria for diagnosis of diabetes. Reference: Standards of Medical Care in Diabetes 2016, [place] Diabetes Association. Diabetes Care. 2016.39(Suppl 1). Performed By: #### 2 4321-2 ####[facility] [id number] [place] [address] [place] Potassium [Moles/Vol] 4.3 mmol/L Normal 3.7-5.1 [facility] Comment on above: Order Comment: Carlton fields Type: BLOOD SPECIMENOrdering Facility: [facility] Address: [address] [place] [address] Performed By: #### 2 4321-2 ####[facility] H[facility]ITALWNCLIA [id number] [place] [address] [place] Sodium [Moles/Vol] 140 mmol/L Normal 136-144 [facility] Comment on above: Order Comment: Speci men Type: BLOOD SPECIMENOrdering Facility: [facility] Address: [address] [place] [address] Performed By: #### 2 4321-2 ####[facility] [id number] [place] [address] [place] Urea nitrogen [Mass/Vol] 12 mg/dL Normal 9-24 [facility] Comment on above: Order Comment: Speci men Type: BLOOD SPECIMENOrdering Facility: [facility] Address: [address] [place] [address] Performed By: #### 2 4321-2 ####[facility] [id number] [place] [address] [place] IgE SerPl-aCncon 10-29-2024 IgE Qn 29.1 kU/l Normal <114.0 [facility] Comment on above: Order Comment: Speci men Type: BLOOD SPECIMENOrdering Facility: [facility] Address: [address] [place] [address] Performed By: #### 1 9113-0 ####[facility] LABCLIA [id number] [place] [id number] [place] CNOVon 08-28-2024 CNOV Office Visit (PULMWS ) MARSHAL CARRILLO ([id number]) 1945 M Date Time Provider Department 08/28/24 9:30 AM HOMA COLEMAN PULMWS During your visit today, we recorded the following information about you: Pulse Weight 56/minute 79.8 kg Homa Coleman APRN.LARGE ANIMAL VETERINARIAN 08/28/2024 1:10 PM Signed Pulmonary Medicine Patients name: Marshal Malhotra PCP: Amilcar Tamayo MD CC: IPF follow-up HPI: Marshal Carrillo is a 78 year old male former 25 pack year smoker, quitting in 1985 with PMH significant for CAD s/p CABG/stents, HLD, VT, PUD with GIB, and IPF. Current therapy consists of OFEV. He presents today for follow-up. JACEY 05/28/24 and was started on OFEV. Has been taking OFEV for 6 weeks, tolerating well with no side effects. Continues to walk daily, 1.5-2 miles daily. Denies further functional decline. Current respiratory symptoms include continued daily productive cough with white sputum. Has significant rhinorrhea and PND which he feels like contributes to cough symptoms. Symptoms are worse in the summer when out mowing. Also concerned for dust mites. Never been allergy tested. No hemoptysis. No wheezing. No dyspnea at rest. Exertional dyspnea with heavy activity. No fevers, chills, or night sweats. No unintended weight loss. No recent hospitalizations or ED visits or upper respiratory infections. Has not been monitoring SPO2 as frequently at home. PAST MEDICAL HISTORY Diagnosis Date Cardiac dysrhythmia, unspecified 07/30/2007 history of paroxysmal atrial and ventricular complexes and nonsustained ventricular tachycardia Coronary atherosclerosis of unspecified type of vessel, [place] or graft 07/30/2007 IA Date: 1985. 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 Latif Ventricular tachycardia (HCC) 12/06/2022 Allergies: No Known Allergies Medication List Accurate as of August 23, 2024 2:13 PM. If you have any questions, ask your nurse or doctor. CONTINUE taking these medications clopidogrel 75 mg tablet Commonly known as: PLAVIX Take 1 tablet by mouth once daily. coenzyme Q10 100 mg Cap capsule Commonly known as: COENZYME Q-10 ezetimibe 10 mg tablet Commonly known as: ZETIA Take 1 tablet by mouth once daily. lutein 6 mg Cap metoprolol succinate ER 25 mg 24 hr tablet Commonly known as: TOPROL XL Take 1 tablet by mouth once daily. nintedanib 150 mg capsule Commonly known as: OFEV Take 1 capsule by mouth every 12 hours. nitroglycerin sublingual 0.4 mg SL tablet Commonly known as: NITROSTAT Dissolve 1 tablet under the tongue as needed for chest pain. If no pain relief call 911. pantoprazole DR 20 mg tablet Commonly known as: PROTONIX Take 1 tablet by mouth once daily. rosuvastatin 40 mg tablet Commonly known as: CRESTOR Take 1 tablet by mouth daily at bedtime. DATA: I personally reviewed and analyzed all labs, radiographs and available pulmonary function testing Oximetry with Ambulation: 05/2024 PFT: 04/2024 Spirometry is normal. Minimal reduction in diffusion that corrects for alveolar volume. CXR: Last XR Chest - Impression Only XR CHEST 2V FRONTAL/LAT Exam End: 04/30/2024 12:18 PM (Final result) Impression: IMPRESSION: Findings as described above are most consistent with chronic interstitial disease. No superimposed acute process Conveyor System Operator: PAMELA Transcribe Date/Time: Apr 30 2024 4:22P... CT Chest: 05/2024 IMPRESSION: 1. Bilateral reticular opacities in a prominently peripheral and lower lung distribution with interstitial lung disease 2. There is a 4 mm nodule in the anterior left upper lobe 3. No thoracic lymphadenopathy Conveyor System Operator: PAMELA Transcribe Date/Time: May 21 2024 12:42P Dictated by : KANDY MOTA MD This examination was interpreted and the report reviewed and electronically signed by: KANDY MOTA MD on May 21 2024 1:33PM EST Results-Findings * * *Final Report* * * DATE OF EXAM: May 16 2024 10:15AM [facility] 0541 - CT CHEST WO IVCON / PROCEDURE REASON: Interstitial pulmonary disease (HCC) * * * * Physician Interpretation * * * * EXAMINATION: CHEST CT WITHOUT CONTRAST CLINICAL HISTORY: Interstitial pulmonary disease Technique: Spiral CT acquisition of the chest from the thoracic inlet to the upper abdomen without cont (more content not included)... Normal [facility] CNOVon 07-08-2024 CNOV Office Visit (CATHMN ) MARSHAL CARRILLO ([id number]) 1945 M Date Time Provider Department 07/08/24 3:30 PM BRANDEN HICKMAN CATHELZBIETA During your visit today, we recorded the following information about you: Pulse Respiration Blood pressure Weight 74/minute 18/minute 153/73 79.8 kg Height 1.829 m Branden Hickman MD 07/09/2024 6:03 PM Signed Heart, Vascular and Thoracic [facility] Ley[facility] Department of Cardiovascular Medicine SECTION OF INTERVENTIONAL CARDIOLOGY OUTPATIENT VISIT DATE July 08, 2024 OUTPATIENT VISIT TYPE ESTABLISHED PRIMARY CARE PHYSICIAN: Amilcar Tamayo [address] [place] [address] REFERRING PHYSICIAN: Mauricio Hickman [address], Desk J2-3 [facility] [id number] CHIEF COMPLAINT: Patient presents with: Follow Up HISTORY OF PRESENT ILLNESS: Mr. Carrillo is a 78 year old male with CAD and prior CABG and PCI who presents today for follow-up visit. Since 05/2023, continued to have SOB. 04/30/2024 - Pulmonary evaluation (Dr. Chester) 1. ILD -Physical exam, chest x-ray findings and pulmonary function testing most consistent with pulmonary fibrosis -Chest CT. Results of chest CT will determine extent of further workup -Oxygen assessment 2. Former smoker -Former remote smoker without evidence of COPD -Continue abstinence 05/16/2024 - CT Chest 1. Bilateral reticular opacities in a prominently peripheral and lower lung distribution with interstitial lung disease 2. There is a 4 mm nodule in the anterior left upper lobe 3. No thoracic lymphadenopathy Feels his exercise tolerance has gradually declined since 2018, although stable since 2021. This was during a period when he was walking regularly. SHIELDS occurs on activity such as working over his head or after getting out of the shower. Also notes that he has SHIELDS on climbing hills or climbing more than 1 flight of stairs. But he is walking 2.5 miles daily over 40 minutes. He denies orthopnea, PND, palpitations, lightheadedness, syncope, and leg swelling. BP at home running 115-120s mm Hg. PAST CARDIAC HISTORY: 07/23/1986 - IA - symptoms were SOB after chasing a calf at work (at [employer]). 08/1986 - CABG - TORRES to LAD, [...] continued aspirin. 06/01/2018 - Stress Nuclear in [place] 7:00, Stage 3, 107% APMHR, 8 METS ECG - baseline RBBB, exercise 1-[address] depression in I, L, V2 Nuclear - mid inferoseptal/basal, mid inferior perfusion changes appearing compatible with an area of previous IA LVEF 59% 07/06/2018 - EGD as [facility] - healed gastric ulcers, n (more content not included)... Normal [facility] ECG COMPLETEon 07-08-2024 ECG COMPLETE Ventricular Rate : 7 6 BPM Atrial Rate : 76 BPM P-R Interval : 224 ms QRS Duration : 154 ms Q-T Interval : 436 ms QTC Calculation(Bazett) : 490 ms Calculated P Vernon : 64 degrees Calculated R Vernon : -51 degrees Calculated T Vernon : 47 degrees SINUS RHYTHM WITH 1ST DEGREE AV BLOCK COMPLETE RIGHT BUNDLE BRANCH BLOCK LEFT ANTERIOR FASCICULAR BLOCK BIFASCICULAR BLOCK MINIMAL VOLTAGE CRITERIA FOR LVH, MAY BE NORMAL VARIANT ( R in aVL ) ABNORMAL ECG Confirmed by PADMINI BROCK MD ([id number]) on 08/16/2024 5:30:51 PM NAME : MARSHAL CARRILLO PID : [id number] : 1945 Gender : Male Race : ORD : [id number] Procedure Date : Jul 08 2024 13:44:39 Edit Date : Aug 16 2024 17:30:53 Diagnosis: SINUS RHYTHM WITH 1ST DEGREE AV BLOCK COMPLETE RIGHT BUNDLE BRANCH BLOCK LEFT ANTERIOR FASCICULAR BLOCK BIFASCICULAR BLOCK MINIMAL VOLTAGE CRITERIA FOR LVH, MAY BE NORMAL VARIANT ( R in aVL ) ABNORMAL ECG Confirmed by PADMINI BROCK MD ([id number]) on 08/16/2024 5:30:51 PM Test Reason : Location : 314 : 14 J14 Overread By : PADMINI BROCK MD Edited By : PADMINI BROCK MD Referred By : BRANDEN HICKMAN Acquired by : ENA KAT [facility] ECHOon 07-08-2024 Echocardiography Echocardiography Rep ort: Transthoracic Echo [facility] J1-5 Date of service: 07/08/2024 2:58:16 PM PRINCIPAL Ordering physician: BRANDEN HICKMAN Indication: CAD, s/p CABG Technologist: Frances Myles Fellow: Shadi Corea MD and Moses Montesinos MD Interpreting physician: Johnie Reddy MD PATIENT: Name: MR. MARSHAL CARRILLO : 1945 Age: 78 years Gender: M History of hypertension, dyslipidemia and coronary artery disease. Previous cardiovascular interventions: PCI CABG Primary rhythm: sinus. Secondary rhythm: RBBB. Height: 181.60 cm BSA: 2.01 m Weight: 79.90 kg BMI: 24.2 kg/m Heart rate 71 bpm Blood pressure 153/71 mmHg Color Doppler was utilized to interrogate the cardiac valves assessed and spectral Doppler was utilized to determine the flow velocities and pressure gradients reported in this exam. Myocardial strain analysis was performed in this exam to aid in the assessment of cardiac function. MEASUREMENTS: Value Indexed Normal Max aortic dimension 3.8 cm Ao < 3.8 Left atrial volume 75 ml (biplane A-L) 37 ml/m Santiago <= 34 LV ID (diastole) 4.9 cm (2D) 2.44 cm/m LV ID (systole) 3.4 cm (2D) 1.69 cm/m IVS, leaflet tips 1.5 cm (2D) Posterior wall thickness 1.5 cm (2D) Left ventricular mass 313 g (2D) 156 g/m LV stroke volume 64 ml (2D biplane) LV end diastolic volume 110 ml (2D biplane) 54.8 ml/m 34<=EDVi<75 LV end systolic volume 46 ml (2D biplane) 23.1 ml/m Ejection Fraction 58 % (2D biplane) EF > 52 FINDINGS: LEFT VENTRICLE The left ventricle is normal in size. There is mild concentric left ventricular hypertrophy. Left ventricular systolic function is normal. Global LV myocardial strain is normal. Grade I left ventricular diastolic dysfunction. Mitral annular lateral E/e': 5.3. Mitral annular septal E/e': 12.1. Wall Motion: The basal anteroseptal segment, basal inferior segment, and basal inferoseptal segment are mildly hypokinetic. All remaining scored segments are normal. RIGHT VENTRICLE The right ventricle is normal in size. Right ventricular systolic function is low normal. RV systolic tissue Doppler velocity is 8.1 cm/s. Tricuspid annular displacement is 1.4 cm. Estimated right ventricular systolic pressure is likely underestimated due to a weak or incomplete tricuspid regurgitation signal and is, at least, 27 mmHg plus right atrial pressure. Estimated right atrial pressure is not included as the IVC was not seen. LEFT ATRIUM The left atrial cavity is dilated. Pulmonary Veins: The pulmonary venous pattern showed normal systolic flow. RIGHT ATRIUM The right atrial cavity is normal in size. MITRAL VALVE There is trace mitral valve regurgitation. There is mild thickening. The pressure half time is 56 msec. The peak mitral E/A ratio is 0.63. The mitral flow deceleration time is 193 msec. TRICUSPID VALVE The tricuspid valve leaflets are structurally normal. There is trace (trace - 1+) tricuspid valve regurgitation. AORTIC VALVE There is trace (trace - 1+) aortic valve regurgitation. Tricuspid aortic valve. There is moderate thickening. PULMONIC VALVE The pulmonic valve cusps are structurally normal. There is trace pulmonic valve regurgitation. AORTA The visualized aorta is borderline dilated. Measurements - Sinus: 3.6 cm. Mid ascending aorta 3.8 cm. PULMONARY ARTERIES The pulmonary arteries are normal. INTERATRIAL SEPTUM There is no evidence of intracardiac shunting as detected by Doppler. INTERVENTRICULAR SEPTUM There is no flow through the interventricular septum as detected by Doppler. CONCLUSIONS: - Exam indication: CAD, s/p CABG - The left ventricle is normal in size. There is mild concentric left ventricular hypertrophy. Left ventricular systolic function is normal. EF = 58 5% (2D biplane) Grade I left ventricular diastolic dysfunction. - The right ventricle is normal in size. Right ventricular systolic function is low normal. - The left atrial cavity is dilated. - The visualized aorta is borderline dilated with a maximal dimension of 3.8 cm. - There are no significant valvular abnormalities. - Exam was compared with the prior CC echocardiographic exam performed on 06/27/2022. Similar findings. * * * Final * * * CC [employer] Image : [id number] Normal [facility] CNOVon 07-01-2024 CNOV Office Visit (INTMWS ) MARSHAL CARRILLO ([id number]) 1945 M Date Time Provider Department 07/01/24 11:20 AM TALIB JUNG INTMWS During your visit today, we recorded the following information about you: Pulse Blood pressure Weight 59/minute 138/54 79.9 kg Talib Jung APRN.LARGE ANIMAL VETERINARIAN 07/01/2024 11:58 AM Signed SUBJECTIVE Marshal Carrillo is a 78 year old male here today for a check up on his medical problems. Chief Complaint Patient presents with: F/U 6 months HPI Marshal Carrillo is a 78 year old male. He is an established patient of Amilcar Tamayo MD. Here today for a routine follow up. He has a history of GERD, HTN, CAD, HLD, thrombocytopenia. Last visit we did a work up for shortness of breath, he was referred to pulmonary and diagnosed with idiopathic pulmonary fibrosis. Following with [facility] pulmonary. Prescribed Ofev. Still walking 2.5 miles a day. Following with cardiology too. Dr. Hickman. His medications were reviewed today and his list is now up to date. Medications Current Outpatient Medications Medication Sig nintedanib (OFEV) 150 mg capsule Take 1 capsule by mouth every 12 hours. nitroglycerin sublingual (NITROSTAT) 0.4 mg SL tablet Dissolve 1 tablet under the tongue as needed for chest pain. If no pain relief call 911. coenzyme Q10 (COENZYME Q-10) 100 mg cap capsule Take 100 mg by mouth once daily. Lutein 6 mg ORAL Cap Take one(1) tablet daily. pantoprazole DR (PROTONIX) 20 mg tablet Take 1 tablet by mouth once daily. rosuvastatin (CRESTOR) 40 mg tablet Take 1 tablet by mouth daily at bedtime. metoprolol succinate ER (TOPROL XL) 25 mg 24 hr tablet Take 1 tablet by mouth once daily. ezetimibe (ZETIA) 10 mg tablet Take 1 tablet by mouth once daily. clopidogrel (PLAVIX) 75 mg tablet Take 1 tablet by mouth once daily. No current facility-administered medications for this visit. ALLERGIES No Known Allergies ACTIVE PROBLEM LIST Idiopathic Pulmonary Fibrosis (Hcc) - 07/01/2024 Atherosclerosis of [place] Coronary Artery of [place] Heart Without Angina Pectoris - 06/07/2019 Pure Hypercholesterolemia - 06/07/2019 Peptic Ulcer - 05/29/2018 Basal Cell Carcinoma of Left Lower Eyelid - 02/28/2018 Chronic Idiopathic Thrombocytopenia (Hcc) - 02/23/2018 Bcc (Basal Cell Carcinoma of Skin) - 02/23/2018 S/P Drug Eluting Coronary Stent Placement - 12/02/2014 Comment: D/c plavix Keep on ASA S/P Cabg (Coronary Artery Bypass Graft) - 12/02/2014 Old Myocardial Infarction - 04/05/2011 Comment: Dr [facility] Pvc (Premature Ventricular Contraction) - 04/05/2011 Comment: Dr [facility] Essential Hypertension - 11/06/2008 Comment: Creat 0.9 in 10-20, 1 in - Coronary Atherosclerosis - 07/30/2007 Comment: IA Date: 1985 CABG Date: 1986: TORRES-LAD, KAMLESH-RCA, SVG-Diag PCI 05-15 - stents in his ostial and proximal circumflex and in his obtuse marginal branch PTCA 05-15 - posterior lateral branch Cath 05-16:Patent SVG-Diag, TORRES-LAD, KAMLESH-RCA [place] 11-20: rec SPECT in 6 mo Mixed Hyperlipidemia - 03/22/2005 Comment: LDL 70, HDL 41, TG 94 in 3- LDL 80, HDL 43, TG 81 in 04-22 Enthesopathy of Ankle and Tarsus, 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 Respiratory: Negative. Cardiovascular: Negative. OBJECTIVE BP 138/54 Pulse 59 Wt 176 lb 2.4 oz (79.9kg) SpO2 93% Physical Exam Vitals and nursing note reviewed. Constitutional: General: He is awake. He is not in acute distress. Appearance: Normal appearance. He is well-developed and well-groomed. He is not ill-appearing, toxic-appearing or diaphoretic. HENT: Head: Normocephalic. Right Ear: External ear normal. Left Ear: External ear normal. Nose: Nose normal. Eyes: General: Vision grossly intact. Conjunctiva/sclera: Conjunctivae normal. Pupils: Pupils are equal, round, and reactive to light. Neck: Vascular: No JVD. Trachea: Trachea normal. Cardiovascular: Rate and Rhythm: Normal rate and regular rhythm. Pulses: Normal pulses. Heart sounds: Normal heart sounds. No murmur heard. Pulmonary: Effort: Pulmonary effort is normal. No accessory muscle usage, prolonged expiration or respiratory distress. Breath sounds: Normal breath sounds. Musculoskeletal: Cervical back: Neck supple. Skin: General: Skin is warm and dry. Capillary Refill: Capillary refill takes less than 2 seconds. Neurological: General: No focal deficit present. Ment (more content not included)... Normal [facility] WILLIAM BY IFA SCREENon 05-29-20 24 Nuclear Ab Ql (S) Negative Normal Negative [facility] Comment on above: Order Comment: Speci men Type: BLOOD SPECIMEN [facility] Address: [address] [place] [address] Result Comment: Anti -nuclear antibody test is used as an aid in diagnosis of systemic autoimmune diseases. Where positive and clinically warranted, follow-up using disease-specific testing is recommended. Low positive titers are not uncommon with advanced age, certain chronic infections, and malignancies among others. Test methodology: Indirect fluorescence immunoassay (IFA) using HEp-2 cells. Performed By: #### M YOSPL #### [facility] CLIA [id number] [address] [place] [address] ANTI NEUTRO CYTO ABon 2023 INTERPRETATION (ANCA) Normal [facility] Comment on above: Order Comment: Carlton fields Type: BLOOD SPECIMEN [facility]: [facility] Address: [address] [place] [address] Result Comment: Nega tive for C-ANCA and P-ANCA by indirect immunofluorescence. A negative result cannot reliably rule out ANCA-associated vaculitides especially when in remission. Clinical correlation is required. Performed By: #### M YOSPL #### [facility] CLIA [id number] [address] [place] [address] Neutrophil cytoplasmic Ab.classic IF Ql (S) Negative Normal Negative [facility] Comment on above: Order Comment: [place] Type: BLOOD SPECIMEN [facility] Address: [address] [place] [address] Performed By: #### M YOSPL #### [facility] CLIA [id number] [address] [place] [address] Neutrophil cytoplasmic Ab.perinuclear IF Ql (S) Negative Normal Negative [facility] Comment on above: Order Comment: [place] diamond Type: BLOOD SPECIMEN [facility]: [facility] Address: [address] [place] [address] Performed By: #### M YOSPL #### [facility] CLIA [id number] [address] [place] [address] STAFF REVIEW (ANCA) No review performed. Normal [facility] Comment on above: Order Comment: [place] diamond Type: BLOOD SPECIMEN [facility] Address: [address] [place] [address] Performed By: #### M YOSPL #### [facility] [id number] [address] [place] [address] Bilirub [facility] Bilirubin.conjugate d [Mass/Vol] mg/dL Normal <0.2 [facility] Comment on above: Order Comment: Speci men Type: BLOOD SPECIMENOrdering Facility: [facility] Address: [address] [place] [address] Performed By: #### 1 5152-2, 01882-3, 37376-4, 19903-9 ####[facility] LABCLIA [id number] [place] [address] [place] CBC panel Auto (Bld)on 05-29 Erythrocyte distribution width (RBC) [Ratio] 13.2 % Normal 11.5-15.0 [facility] Comment on above: Order Comment: Speci men Type: BLOOD SPECIMENOrdering Facility: [facility] Address: [address] [place] [address] Performed By: #### 5 8410-2 ####[facility] LABIA [id number] [place] [address] [place] Hematocrit (Bld) [Volume fraction] 44.9 % Normal 39.0-51.0 [facility] Comment on above: Order Comment: Speci men Type: BLOOD SPECIMENOrdering Facility: [facility] Address: [address] [place] [address] Performed By: #### 5 8410-2 ####[facility] LABIA [id number] [place] [id number] [place] Hemoglobin (Bld) [Mass/Vol] 14.4 g/dL Normal 13.0-17.0 [facility] Comment on above: Order Comment: Speci men Type: BLOOD SPECIMENOrdering Facility: [facility] Address: [address] [place] [address] Performed By: #### 5 8410-2 ####[facility] LABIA [id number] [place] [address] [place] MCH (RBC) [Entitic mass] 29.9 pg Normal 26.0-34.0 [facility] Comment on above: Order Comment: Speci men Type: BLOOD SPECIMENOrdering Facility: [facility] Address: [address] [place] [address] Performed By: #### 5 8410-2 ####[facility] LABIA [id number] [place] [address] [place] MCHC (RBC) [Mass/Vol] 32.1 g/dL Normal 30.5-36.0 [facility] Comment on above: Order Comment: Speci men Type: BLOOD SPECIMENOrdering Facility: [facility] Address: [address] [place] [address] Performed By: #### 5 8410-2 ####[facility] [id number] [place] [address] [place] MCV (RBC) [Entitic vol] 93.2 fL Normal 80.0-100.0 [facility] Comment on above: Order Comment: Speci men Type: BLOOD SPECIMENOrdering Facility: [facility] Address: [address] [place] [address] Performed By: #### 5 8410-2 ####[facility] [id number] [place] [address] [place] Nucleated RBC (Bld) [#/Vol] 10*3/uL Normal <0.01 [facility] Comment on above: Order Comment: Speci men Type: BLOOD SPECIMENOrdering Facility: [facility] Address: [address] [place] [address] Performed By: #### 5 8410-2 ####[facility] [id number] [place] [address] [place] Platelet mean volume (Bld) [Entitic vol] 11.6 fL Normal 9.0-12.7 [facility] Comment on above: Order Comment: Speci men Type: BLOOD SPECIMENOrdering Facility: [facility] Address: [address] [place] [address] Performed By: #### 5 8410-2 ####[facility] LABCLIA [id number] [place] [address] [place] Platelets (Bld) [#/Vol] 135 10*3/uL Low 150-400 [facility] Comment on above: Order Comment: Speci men Type: BLOOD SPECIMENOrdering Facility: [facility] Address: [address] [place] [address] Performed By: #### 5 8410-2 ####[facility] LABCLIA [id number] [place] [address] [place] RBC (Bld) [#/Vol] 4.82 10*6/uL Normal 4.20-6.00 [facility] Comment on above: Order Comment: Speci men Type: BLOOD SPECIMENOrdering Facility: [facility] Address: [address] [place] [address] Performed By: #### 5 8410-2 ####[facility] LABIA [id number] [place] [address] [place] WBC (Bld) [#/Vol] 5.80 10*3/uL Normal 3.70-11.00 [facility] Comment on above: Order Comment: Speci men Type: BLOOD SPECIMENOrdering Facility: [facility] Address: [address] [place] [address] Performed By: #### 5 8410-2 ####[facility] LABIA [id number] [place] [address] [place] Centromere Ab IF Ql (S)on Centromere Ab Qn (S) <0.2 Normal <1.0 [facility] Comment on above: Order Comment: Speci men Type: BLOOD SPECIMEN [facility] Facility: [facility] Address: [address] [place] [address] Result Comment: Anti -centromere antibody is used as in aid in diagnosis of systemic sclerosis. Clinical correlation is required. Test Methodology: Multiplex flow immunoassay. Performed By: #### M YOSPL #### [facility] CLIA [id number] [address] [place] [address] CENTROMERE AB QUAL Negative Normal Negative [facility] Comment on above: Order Comment: Speci men Type: BLOOD SPECIMEN [facility] Facility: [facility] Address: [address] [place] [address] Performed By: #### M YOSPL #### [facility] CLIA [id number] [address] [place] [address] Chromatin Ab Qnon 05-29-2024 CHROMATIN AB QUAL Negative Normal Negative [facility] Comment on above: Order Comment: Speci men Type: BLOOD SPECIMEN [facility] Address: [address] [place] [address] Performed By: #### M YOSPL #### [facility] CLIA [id number] [address] [place] [address] Chromatin [facility] Chromatin Ab Qn <0.2 Normal <1.0 [facility] Comment on above: Order Comment: Speci men Type: BLOOD SPECIMEN [facility] Address: [address] [place] [address] Result Comment: Test Methodology: Multiplex flow immunoassay. Performed By: #### M YOSPL #### [facility] CLIA [id number] [address] [place] [address] Comprehensive metabolic 2000 panelon 05-29-2024 Albumin [Mass/Vol] 4.0 g/dL Normal 3.9-4.9 [facility] Comment on above: Order Comment: Speci men Type: BLOOD SPECIMENOrdering Facility: [facility] Address: [address] [place] [address] Performed By: #### 1 5152-2, 26391-4, 91900-4, 58052-5 ####[facility] LABCLIA [id number] [address] [address] [place] ALP [Catalytic activity/Vol] 53 U/L Normal 38-113 [facility] Comment on above: Order Comment: Speci men Type: BLOOD SPECIMENOrdering Facility: [facility] Address: [address] [place] [address] Performed By: #### 1 5152-2, 09317-3, 68309-5, ####[facility] LABCLIA [id number] [place] [id number] [place] ALT [Catalytic activity/Vol] 16 U/L Normal 10-54 [facility] Comment on above: Order Comment: Speci men Type: BLOOD SPECIMENOrdering Facility: [facility] Address: [address] [place] [address] Performed By: #### 1 5152-2, 13329-4, 74107-0, ####[facility] LABIA [id number] [place] [address] [place] Anion gap [Moles/Vol] 8 mmol/L Normal 8-15 [facility] Comment on above: Order Comment: Speci men Type: BLOOD SPECIMENOrdering Facility: [facility] Address: [address] [place] [address] Performed By: #### 1 5152-2, 60222-2, 11433-7, ####[facility] LABCLIA [id number] [place] [id number] [place] AST [Catalytic activity/Vol] 29 U/L Normal 14-40 [facility] Comment on above: Order Comment: Speci men Type: BLOOD SPECIMENOrdering Facility: [facility] Address: [address] [place] [address] Performed By: #### 1 5152-2, 49713-4, 20174-8, 34286-4 ####[facility] LABCLIA [id number] [address] [address] [place] Bilirubin [Mass/Vol] 0.5 mg/dL Normal 0.2-1.3 [facility] Comment on above: Order Comment: Speci men Type: BLOOD SPECIMENOrdering Facility: [facility] Address: [address] [place] [address] Performed By: #### 1 5152-2, 04641-4, 76329-0, ####[facility] LABCLIA [id number] [place] [address] [place] Calcium [Mass/Vol] 9.2 mg/dL Normal 8.5-10.2 [facility] Comment on above: Order Comment: Speci men Type: BLOOD SPECIMENOrdering Facility: [facility] Address: [address] [place] [address] Performed By: #### 1 5152-2, 62069-1, 72661-1, ####[facility] LABCLIA [id number] [place] [address] [place] Chloride [Moles/Vol] 105 mmol/L Normal 98-107 [facility] Comment on above: Order Comment: Speci men Type: BLOOD SPECIMENOrdering Facility: [facility] Address: [address] [place] [address] Performed By: #### 1 5152-2, 00504-8, 04039-5, ####[facility] LABCLIA [id number] [place] [id number] [place] CO2 [Moles/Vol] 26 mmol/L Normal 22-30 [facility] Comment on above: Order Comment: Speci men Type: BLOOD SPECIMENOrdering Facility: [facility] Address: [address] [place] [address] Performed By: #### 1 5152-2, 51628-9, 47340-6, 44452-0 ####[facility] LABCLIA [id number] [address] [address] [place] Creatinine [Mass/Vol] 0.91 mg/dL Normal 0.73-1.22 [facility] Comment on above: Order Comment: Carlton fields Type: BLOOD SPECIMENOrdering Facility: [facility] Address: [address] [place] [address] Performed By: #### 1 5152-2, 32200-9, 90822-1, ####[facility] LABCLIA [id number] [place] [address] [place] Creatinine and Glomerular filtration rate.predicted panel (S/P/Bld) 85 mL/min/1.73m??? Normal >=60 [facility] Comment on above: Order Comment: Carl[place] fields Type: BLOOD SPECIMENOrdering Facility: [facility] Address: [address] [place] [address] Result Comment: Yoko mated Glomerular Filtration Rate (eGFR) is calculated using the 2020 CKD-EPI creatinine equation. This equation utilizes serum creatinine, sex, and age as parameters. The creatinine assay has traceable calibration to isotope dilution-mass spectrometry. Refer to KDIGO guidelines for clinical interpretation. In patients with unstable renal function, e.g. those with acute kidney injury, the eGFR may not accurately reflect actual GFR. Performed By: #### 1 5152-2, 17876-4, 43501-0, ####[facility] LABCLIA [id number] [place] [id number] [place] Glucose [Mass/Vol] 100 mg/dL High 74-99 [facility] Comment on above: Order Comment: Carlton fields Type: BLOOD SPECIMENOrdering Facility: [facility] Address: [address] [place] [address] Result Comment: The [place] Diabetes Association (ADA) provides guidance for cutoff values for fasting glucose and random glucose. The ADA defines fasting as no caloric intake for at least 8 hours. Fasting plasma glucose results between 100 to 125 mg/dL indicate increased risk for diabetes (prediabetes). Fasting plasma glucose results greater than or equal to 126 mg/dL meet the criteria for diagnosis of diabetes. In the absence of unequivocal hyperglycemia, results should be confirmed by repeat testing. In a patient with classic symptoms of hyperglycemia or hyperglycemic crisis, random plasma glucose results greater than or equal to 200 mg/dL meet the criteria for diagnosis of diabetes. Reference: Standards of Medical Care in Diabetes 2016, [place] Diabetes Association. Diabetes Care. 2016.39(Suppl 1). Performed By: #### 1 5152-2, 54074-4, 09124-3, 75974-0 ####[facility] LABCLIA [id number] [place] [address] [place] Potassium [Moles/Vol] 4.2 mmol/L Normal 3.7-5.1 [facility] Comment on above: Order Comment: Speci diamond Type: BLOOD SPECIMENOrdering Facility: [facility] Address: [address] [place] [address] Performed By: #### 1 5152-2, 23565-5, 97887-7, ####[facility] LABCLIA [id number] [place] [address] [place] Protein [Mass/Vol] 6.9 g/dL Normal 6.3-8.0 [facility] Comment on above: Order Comment: Otonieli diamond Type: BLOOD SPECIMENOrdering Facility: [facility] Address: [address] [place] [address] Performed By: #### 1 5152-2, 77454-3, 71602-0, 58559-1 ####[facility] LABCLIA [id number] [place] [address] [place] Sodium [Moles/Vol] 139 mmol/L Normal 136-144 [facility] Comment on above: Order Comment: Otonieli men Type: BLOOD SPECIMENOrdering Facility: [facility] Address: [address] [place] [address] Performed By: #### 1 5152-2, 85571-8, 79775-2, 77751-7 ####[facility] LABCLIA [id number] [place] [address] [place] Urea nitrogen [Mass/Vol] 12 mg/dL Normal 9-24 [facility] Comment on above: Order Comment: Speci men Type: BLOOD SPECIMENOrdering Facility: [facility] Address: [address] [place] [address] Performed By: #### 1 5152-2, 57990-4, 96104-0, 24212-2 ####[facility] LABCLIA [id number] [place] [address] [place] Cyclic citrullinated peptide IgG Qnon 05-29-2024 CCP ANTIBODY IGG QUALITATIVE Negative Normal Negative [facility] Comment on above: Order Comment: Speci men Type: BLOOD SPECIMENOrdering Facility: [facility] Address: [address] [place] [address] Performed By: #### 3 3935-8 ####[facility] LABCLIA [id number] [place] [address] [place] DNA ANTIBODY DS BLDon 2023 DNA ANTIBODY 45 IU/mL Normal <=200 [facility] Comment on above: Order Comment: Speci men Type: BLOOD SPECIMENOrdering Facility: [facility] Address: [address] [place] [address] Result Comment: Nega tive: <200 IU/mL Equivocal: 201-300 IU/mL Moderate Positive: 301-800 IU/mL Strong Positive: >801 IU/mL Performed By: #### D NAAB ####[facility] LABCLIA [id number] [place] [address] [place] DNA ANTIBODY QUALITATIVE INTERPRETATION Negative Normal Negative [facility] Comment on above: Order Comment: Speci men Type: BLOOD SPECIMENOrdering Facility: [facility] Address: [address] [place] [address] Performed By: #### D NAAB ####[facility] LABCLIA [id number] [place] [address] [place] HARITHA Jo1 Ab Ser-aCncon 2023 Fallon-1 extractable nuclear Ab Qn (S) <0.2 Normal <1.0 [facility] Comment on above: Order Comment: Speci men Type: BLOOD SPECIMENOrdering Facility: [facility] Address: [address] [place] [address] Performed By: #### 1 7792-3, 49315-2, 94662-8, 86699-6, 68048-9, 47842-1, 05408-0, 93404-5 ####[facility] LABIA [id number] [place] [address] [place] HARITHA [employer] Ab Ser-aCncon 2023 Ribonucleoprotein extractable nuclear Ab Qn (S) <0.2 Normal <1.0 [facility] Comment on above: Order Comment: Speci men Type: BLOOD SPECIMEN [facility] Address: [address] [place] [address] Performed By: #### M [facility] #### [facility] [id number] [address] [place] [address] Ribonucleoprotein extractable nuclear Ab Qn (S) 0.3 AI Normal <1.0 [facility] Comment on above: Order Comment: Speci men Type: BLOOD SPECIMENOrdering Facility: [facility] Address: [address] [place] [address] Performed By: #### 1 7792-3, 88310-6, 89730-3, 79961-8, 55931-6, 91486-2, 42661-4, 63374-0 ####[facility] [id number] [place] [address] [place] HARITHA SM IgG Ser-aCncon 2023 Lazaro extractable nuclear IgG Qn (S) <0.2 Normal <1.0 [facility] Comment on above: Order Comment: Speci men Type: BLOOD SPECIMEN [facility] Address: [address] [place] [address] Performed By: #### M YOSPL #### [facility] CLIA [id number] [address] [place] [address] HARITHA SS-A Ab Ser-aCncon 05-29 Sjogrens syndrome-A extractable nuclear Ab Qn (S) <0.2 Normal <1.0 [facility] Comment on above: Order Comment: Speci men Type: BLOOD SPECIMENOrdering Facility: [facility] Address: [address] [place] [address] Result Comment: Test Methodology: Multiplex flow immunoassay. Performed By: #### 1 7792-3, 10925-8, 54577-3, 23275-5, 41592-9, 40139-4, 45988-2, 23475-3 ####[facility] LABCLIA [id number] [place] [address] [place] HARITHA SS-B Ab Ser-aCncon 05-29 Sjogrens syndrome-B extractable nuclear Ab Qn (S) <0.2 Normal <1.0 [facility] Comment on above: Order Comment: Speci men Type: BLOOD SPECIMEN [facility] Address: [address] [place] [address] Result Comment: Anti -SSB (anti-La) antibody is used as an aid in diagnosis of a variety of systemic autoimmune diseases, especially for Sjogren's syndrome and systemic lupus erythematosus. Clinical correlation is required. Test Methodology: Multiplex flow immunoassay. Performed By: #### M YOSPL #### [facility] [place] [id number] [address] [place] [address] Fallon-1 extractable nuclear Ab Qn (S)on 05-29-2024 FALLON 1 ANTIBODY QUAL Negative Normal Negative [facility] Comment on above: Order Comment: Speci men Type: BLOOD SPECIMENOrdering Facility: [facility] Address: [address] [place] [address] Result Comment: Anti -FALLON-1 antibody is used as an aid in diagnosis of polymyositis and dermatomyositis especially with pulmonary involvement. A negative result cannot rule out polymyositis or dermatomyositis. Clinical correlation is required. Test Methodology: Multiplex flow immunoassay. Performed By: #### 1 7792-3, 99305-5, 42667-4, 08456-7, 46813-6, 58505-5, 93632-5, 78199-5 ####[facility] LABCLIA [id number] [place] [address] [place] Lipid 1996 panelon 4 Cholesterol [Mass/Vol] 147 mg/dL Normal <200 [facility] Comment on above: Order Comment: Speci men Type: BLOOD SPECIMENOrdering Facility: [facility] Address: [address] [place] [address] Result Comment: <200 mg/dL, Desirable 200-239 mg/dL, Borderline high >239 mg/dL, High Performed By: #### 1 5152-2, 84088-3, 15686-3, 53791-0 ####[facility] LABCLIA [id number] [address] [place] Cholesterol in HDL [Mass/Vol] 49 mg/dL Normal >39 [facility] Comment on above: Order Comment: Speci men Type: BLOOD SPECIMENOrdering Facility: [facility] Address: [address] [place] [address] Result Comment: 40-5 9 mg/dL, Acceptable >59 mg/dL, High: Negative risk factor for coronary heart disease <40 mg/dL, Low: Positive risk factor for coronary heart disease Performed By: #### 1 5152-2, 61253-7, 14774-1, 74412-0 ####[facility] LABCLIA [id number] [place] [id number] [place] Cholesterol in LDL [Mass/Vol] 79 mg/dL Normal <100 [facility] Comment on above: Order Comment: Speci men Type: BLOOD SPECIMENOrdering Facility: [facility] Address: [address] [place] [address] Result Comment: <100 mg/dL, Optimal 100-129 mg/dL, Near optimal/above optimal 130-159 mg/dL, Borderline high 160-189 mg/dL, High >189 mg/dL, Very high Secondary prevention optimal LDL Cholesterol levels are recommended to be < 70 mg/dL Performed By: #### 1 5152-2, 04596-1, 01300-2, 74179-6 ####[facility] LABCLIA [id number] [address] [address] [place] Cholesterol in LDL/Cholesterol in HDL [Mass ratio] 1.61 {ratio} Normal <2.54 [facility] Comment on above: Order Comment: Speci men Type: BLOOD SPECIMENOrdering Facility: [facility] Address: [address] [place] [address] Result Comment: Refe oswaldoce: 1. National Cholesterol Education Program ATP III Guideline At-A-Glance Quick Desk Reference: National Heart, Lung, and Blood Lovely. National Institutes of Health. 2001: NIH Publication No. 01-3305. 2. An International Atherosclerosis Society position paper: global recommendations for the management of dyslipidemia: executive summary, Atherosclerosis. 2014: 232(2):410-413. Performed By: #### 1 5152-2, 60069-5, 68248-9, ####[facility] LABIA [id number] [place] [address] [place] Cholesterol in VLDL [Mass/Vol] 19 mg/dL Normal <30 [facility] Comment on above: Order Comment: Speci men Type: BLOOD SPECIMENOrdering Facility: [facility] Address: [address] [place] [address] Performed By: #### 1 5152-2, 35337-4, 28431-4, 07010-9 ####[facility] LABCLIA [id number] [place] [address] [place] Cholesterol non HDL [Mass/Vol] 98 mg/dL Normal <130 [facility] Comment on above: Order Comment: Speci men Type: BLOOD SPECIMENOrdering Facility: [facility] Address: [address] [place] [address] Result Comment: <130 mg/dL, Optimal 130-159 mg/dL, Near optimal/above optimal 160-189 mg/dL, Borderline high 190-219 mg/dL, High >219 mg/dL, Very high Secondary prevention optimal non HDL Cholesterol levels are recommended to be <100 mg/dL Performed By: #### 1 5152-2, 82879-6, 93124-4, ####[facility] LABCLIA [id number] [place] [address] [place] Cholesterol.total/C holesterol in HDL [Mass ratio] 3.00 {ratio} Normal <5.10 [facility] Comment on above: Order Comment: Speci men Type: BLOOD SPECIMENOrdering Facility: [facility] Address: [address] [place] [address] Performed By: #### 1 5152-2, 62292-2, 05303-7, ####[facility] LABCLIA [id number] [place] [address] [place] FASTING TIME 12 hrs Normal [facility] Comment on above: Order Comment: Speci men Type: BLOOD SPECIMENOrdering Facility: [facility] Address: [address] [place] [address] Performed By: #### 1 5152-2, 72668-7, 79052-0, ####[facility] LABCLIA [id number] [place] [address] [place] Triglyceride [Mass/Vol] 96 mg/dL Normal <150 [facility] Comment on above: Order Comment: Speci men Type: BLOOD SPECIMENOrdering Facility: [facility] Address: [address] [place] [address] Result Comment: <150 mg/dL, Normal 150-199 mg/dL, Borderline high 200-499 mg/dL, High >499 mg/dL, Very high Performed By: #### 1 5152-2, 61179-1, 00955-8, ####[facility] LABCLIA [id number] [place] [address] [place] Magnesium SerPl-mCncon 05-29 Magnesium [Mass/Vol] 2.3 mg/dL Normal 1.7-2.3 [facility] Comment on above: Order Comment: Carl[place] fields Type: BLOOD SPECIMENOrdering Facility: [facility] Address: [address] [place] [address] Performed By: #### 1 5152-2, 13173-7, 20731-7, 86593-5 ####[facility] LABCLIA [id number] [place] [address] [place] POLYMYOSITIS AND DERMATOMYOS ITIS PANELon 05-29-2024 EJ (GLYCYL-TRNA SYNTHETASE) ANTIBODY Negative Normal Negative [facility] Comment on above: Order Comment: Otonieli diamond Type: BLOOD SPECIMEN [facility] Address: [address] [place] [address] Performed By: #### M YOSPL #### [facility] [id number] [address] [place] [address] FALLON-1 (HISTIDYL-TRNA SYNTHETASE) AB, IGG 2 AU/mL Normal 0-40 [facility] Comment on above: Order Comment: Carl[place] fields Type: BLOOD SPECIMEN [facility] Address: [address] [place] [address] Result Comment: INTE RPRETIVE INFORMATION: Fallon-1 Antibody, IgG 29 AU/mL or less.........Negative 30-40 AU/mL..............Equivocal 41 AU/mL or greater......Positive Presence of Fallon-1 (antihistidyl transfer RNA [t-RNA] synthetase) antibody is associated with polymyositis and may also be seen in patients with dermatomyositis. Fallon-1 antibody is associated with pulmonary involvement (interstitial lung disease), Raynaud phenomenon, arthritis, and thermostat mechanic's hands (implicated in antisynthetase syndrome). Performed By: #### M YOSPL #### [facility] CLIA [id number] [address] [place] [address] MDA5 (CADM-140) AB Negative Normal Negative [facility] Comment on above: Order Comment: Speci men Type: BLOOD SPECIMEN [facility] Address: [address] [place] [address] Performed By: #### M YOSPL #### [facility] CLIA [id number] [address] [place] [address] IA-2 (NUCLEAR HELICASE PROTEIN) ANTIBODY Negative Normal Negative [facility] Comment on above: Order Comment: Speci men Type: BLOOD SPECIMEN [facility] Address: [address] [place] [address] Performed By: #### M YOSPL #### [id number] [address] [place] [address] MYOSITIS INTERPRETIVE INFORMATION See Note Normal [facility] Comment on above: Order Comment: Speci men Type: BLOOD SPECIMEN [facility] Address: [address] [place] [address] Result Comment: INTE RPRETIVE INFORMATION: Dermatomyositis and Polymyositis Panel If present, myositis-specific antibodies (MSA) are specific for myositis, and may be useful in establishing diagnosis as well as prognosis. MSAs are generally regarded as mutually exclusive with rare exceptions; the occurrence of two or more MSAs should be carefully evaluated in the context of patient's clinical presentation. Myositis-associated antibodies (MAA) may be found in patients with CTD, including overlap syndromes, and are generally not specific for myositis. The following table will help in identifying the association of any antibodies found as either MSAs or Иван. Antibody Specificity . . . . . . . . . . . . MSA . . . . MAA Fallon-1 (histidyl-tRNA synthetase) Ab, IgG . . X PL-12 (alanyl-tRNA synthetase) Antibody . . X PL-7 (threonyl-tRNA synthetase) Antibody . . X EJ (glycyl-tRNA synthetase) Antibody . . . . X OJ (isoleucyl-tRNA synthetase) Antibody . . X SRP (Signal Recognition Particle) Ab . . . . X Mi-2 (nuclear helicase protein) Antibody . . X P155/140 Antibody . . . . . . . . . . . . . X TIF-1 gamma (155 kDA) Ab . . . . . . . . . X SAE1 (SUMO activating enzyme) Ab . . . . . . X MDA5 (CADM-140) Ab . . . . . . . . . . . . . X NXP2 (Nuclear matrix protein-2) Ab . . . . . X This test was developed and its performance characteristics determined by [employer]. It has not been cleared or approved by the [place] Food and Drug Administration. This test was performed in a CLIA certified laboratory and is intended for clinical purposes. Performed By: #### M YOSPL #### [facility] CLIA [id number] [address] [place] [address] NXP2 (NUCLEAR MATRIX PROTEIN-2) AB Negative Normal Negative [facility] Comment on above: Order Comment: Speci men Type: BLOOD SPECIMEN [facility] Address: [address] [place] [address] Performed By: #### M YOSPL #### [id number] [address] [place] [address] OJ (ISOLEUCYL-TRNA SYNTHETASE) ANTIBODY Negative Normal Negative [facility] Comment on above: Order Comment: Speci men Type: BLOOD SPECIMEN [facility] Address: [address] [place] [address] Performed By: #### M YOSPL #### [facility] [id number] [address] [place] [address] P155/140 ANTIBODY Negative Normal Negative [facility] Comment on above: Order Comment: Speci men Type: BLOOD SPECIMEN Ordering Facility: [facility] Address: [address] [place] [address] Result Comment: Perf ormed By: [address] [place] [address] Bodywork Therapist: Kaushal Lowe MD, PhD CLIA Number: [id number] Performed By: #### M YOSPL #### [facility] [id number] [address] [place] [address] PL-12 (ALANYL-TRNA SYNTHETASE) ANTIBODY Negative Normal Negative [facility] Comment on above: Order Comment: Speci men Type: BLOOD SPECIMEN Ordering Facility: [facility] Address: [address] [place] [address] Performed By: #### M YOSPL #### [facility] [id number] [address] [place] [address] PL-7 (THREONYL-TRNA SYNTHETASE) ANTIBODY Negative Normal Negative [facility] Comment on above: Order Comment: Speci men Type: BLOOD SPECIMEN Ordering Facility: [facility] Address: [address] [place] [address] Performed By: #### M YOSPL #### [facility] [id number] [address] [place] [address] SAE1 (SUMO ACTIVATING ENZYME) AB Negative Normal Negative [facility] Comment on above: Order Comment: Speci men Type: BLOOD SPECIMEN Ordering Facility: [facility] Address: [address] [place] [address] Performed By: #### M YOSPL #### [facility] [place] [id number] [address] [place] [address] SRP (SIGNAL RECOGNITION PARTICLE) AB Negative Normal Negative [facility] Comment on above: Order Comment: Speci men Type: BLOOD SPECIMEN Ordering Facility: [facility] Address: [address] [place] [address] Performed By: #### M YOSPL #### [facility] [id number] [address] [place] [address] TIF-1 GAMMA (155 KDA) AB Negative Normal Negative [facility] Comment on above: Order Comment: Speci men Type: BLOOD SPECIMEN Ordering Facility: [facility] Address: [address] [place] [address] Performed By: #### M YOSPL #### [facility] [id number] [address] [place] [address] RNA POLYMERASE III ABon 10- RNA POLYMERASE III AB 12 Units Normal 0-19 [facility] Comment on above: Order Comment: Speci men Type: BLOOD SPECIMEN Ordering Facility: [facility] Address: [address] [place] [address] Result Comment: INTE RPRETIVE INFORMATION: RNA Polymerase III Antibody, IgG 19 Units or less ......Negative 20 - 39 Units .........Weak Positive 40 - 80 Units .........Moderate Positive 81 Units or greater ...Strong Positive The presence of RNA polymerase III IgG antibody, when considered in conjunction with other laboratory and clinical findings, is an aid in the diagnosis of systemic sclerosis (SSc) with increased incidence of skin involvement and renal crisis with the diffuse cutaneous form of SSc. RNA polymerase III IgG antibody occur in about 11-23 percent of SSc patients, and typically in the absence of anti-centromere and anti-Scl-70 antibodies. A negative result indicates no detectable IgG antibodies to the dominant antigen of RNA polymerase III and does not rule out the possibility of SSc. False-positive results may also occur due to non-specific binding of immune complexes. Strong clinical correlation is recommended. If clinical suspicion remains, consider additional testing for other antibodies associated with SSc, including centromere, Scl-70, U3-SUPERVISOR PLASTERING, PM/Scl, or Th/To. Performed By: [address] [place] [address] Bodywork Therapist: Kaushal Lowe MD, PhD CLIA Number: [id number] Performed By: #### R NAIII #### [facility] [address] CLIA [id number] [address] [place] [address] Rheumatoid fact SerPl-aCncon 05-29-2024 Rheumatoid factor Qn [IU]/mL Normal <16 [facility] Comment on above: Order Comment: Carlton fields Type: BLOOD SPECIMEN Ordering Facility: [facility] Address: [address] [place] [address] Performed By: #### M YOSPL #### [facility] [address] [place] [id number] [address] [place] [address] Ribonucleoprotein extractabl e nuclear Ab Qn (S)on 05-29-2024 ANTI-SUPERVISOR PLASTERING QUAL Negative Normal Negative [facility] Comment on above: Order Comment: Carl[place] fields Type: BLOOD SPECIMENOrdering Facility: [facility] Address: [address] [place] [address] Performed By: #### 1 7792-3, 83911-6, 68525-3, 35766-8, 93782-3, 02730-3, 82914-0, 77075-4 ####[facility]IA [id number] [address] [address] [place] RIBOSOMAL SUPERVISOR PLASTERING QUAL Negative Normal Negative [facility] Comment on above: Order Comment: Speci men Type: BLOOD SPECIMEN Ordering Facility: [facility] Address: [address] [place] [address] Result Comment: Anti -Ribosomal RNA (Ribosomal P) antibody is used as an aid in diagnosis of systemic autoimmune diseases especially systemic lupus erythematosus and mixed connective tissue disease. Cross-reactivity with Anti-lazaro antibody is not uncommon. Clinical correlation is required. Test Methodology: Multiplex flow immunoassay. Performed By: #### M QASIM #### [facility] [id number] [address] [place] [address] SCL-70 extractable nuclear I gG IA Qn (S)on 05-29-2024 SCLERODERMA AB QUAL Negative Normal Negative [facility] Comment on above: Order Comment: Speci men Type: BLOOD SPECIMENOrdering Facility: [facility] Address: [address] [place] [address] Performed By: #### 1 7792-3, 23414-3, 57714-4, 67278-3, 23374-3, 52120-5, 61201-9, 29644-3 ####[facility] LABIA [id number] [address] [address] [place] SCLERODERMA IGG AB <0.2 Normal <1.0 [facility] Comment on above: Order Comment: Carl[place] fields Type: BLOOD SPECIMENOrdering Facility: [facility] Address: [address] [place] [address] Result Comment: Scl- 70/Scleroderma antibody test is used as an aid in diagnosis of systemic sclerosis especially the diffuse cutaneous form. A negative result cannot rule out systemic sclerosis. The final interpretation should consider clinical picture and other test results such as anti-centromere antibody. Test Methodology: Multiplex flow immunoassay. Performed By: #### 1 7792-3, 84337-4, 73933-8, 96613-7, 35270-2, 95406-8, 23652-8, 89300-7 ####[facility] [id number] [place] [address] [place] Sjogrens syndrome-A extracta ble nuclear Ab Qn (S)on 05-29-2024 SSA ANTIBODY QUAL Negative Normal Negative [facility] Comment on above: Order Comment: Speci men Type: BLOOD SPECIMENOrdering Facility: [facility] Address: [address] [place] [address] Performed By: #### 1 7792-3, 18415-9, 53489-4, 77089-0, 39547-3, 22456-7, 42504-7, 78052-3 ####[facility] [id number] [address] [place] Sjogrens syndrome-B extracta ble nuclear Ab Qn (S)on 05-29-2024 SSB ANTIBODY QUAL Negative Normal Negative [facility] Comment on above: Order Comment: Speci men Type: BLOOD SPECIMEN Ordering Facility: [facility] Address: [address] [place] [address] Performed By: #### M YOANTONIOL #### [employer] [address] CLIA [id number] [address] [place] [address] Lazaro extractable nuclear Ig G Qn (S)on 05-29-2024 SM ANTIBODY QUAL Negative Normal Negative [facility] Comment on above: Order Comment: Speci men Type: BLOOD SPECIMEN Ordering Facility: [facility] Address: [address] [place] [address] Result Comment: Anti -Sm (Lazaro) antibody is used as an aid in diagnosis of systemic lupus erythematosus and its presence is associated with renal disease. A negative result cannot rule out systemic lupus erythematosus. Clinical correlation is required. Test Methodology: Multiplex flow immunoassay. Performed By: #### M YOSPL #### [facility] CLIA [id number] [address] [place] [address] cCP IgG [facility] 024 Cyclic citrullinated peptide IgG Qn <15 Normal <20 [facility] Comment on above: Order Comment: Speci men Type: BLOOD SPECIMENOrdering Facility: [facility] Address: [address] [place] [address] Performed By: #### 3 3935-8 ####[facility] LABCLIA [id number] [address] [id number] [address] [id number] [facility] CNOVon 05-28-2024 CNOV Office Visit (PULMWS ) MARSHAL CARRILLO ([id number]) 1945 M Date Time Provider Department 05/28/24 10:00 AM HOMA COLEMAN PULMWS During your visit today, we recorded the following information about you: Temperature Pulse Blood pressure Weight 97.3 degrees 70/minute 120/65 79.9 kg Homa Coleman APRN.LARGE ANIMAL VETERINARIAN 05/28/2024 12:57 PM Signed Pulmonary Medicine Patients name: Marshal Carrillo PCP: Amilcar Tamayo MD CC: CT follow-up HPI: Marshal Carrillo is a 78 year old male former 25 pack year smoker, quitting in 1985 with PMH significant for CAD s/p CABG/stents, HLD, VT, PUD with GIB. He was referred to Dr. Chester for COPD evaluation and was seen 04/30/2024. Work-up included spirometry at that time was normal with mildly reduced diffusion. He underwent oximetry with ambulation which showed his oxygen level dropped to 90% but did not qualify for oxygen. Subsequent overnight oximetry exam was stable. Chest CT is consistent with IPF. Symptomatically, he is doing well. He reports the most noticeable functional decline was from [id number]. He has a history of CAD and has annual stress tests which have been normal. Currently, he walks 2.5 miles every day (previously 4 miles in 2019) and has been able to maintain that the past 2 years. He does check his SPO2 after walking which is frequently around 86%. He reports a daily productive cough with white sputum. No hemoptysis. No wheezing. Denies dyspnea at rest. His weight has been stable. GERD/heartburn controlled with Pantoprazole. PAST MEDICAL HISTORY Diagnosis Date Cardiac dysrhythmia, unspecified 07/30/2007 history of paroxysmal atrial and ventricular complexes and nonsustained ventricular tachycardia Coronary atherosclerosis of unspecified type of vessel, kaguyuk or graft 07/30/2007 [place] Date: 1985. 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 Latif Ventricular tachycardia (HCC) 12/06/2022 Allergies: No Known Allergies Medication List Accurate as of May 24, 2024 2:41 PM. If you have any questions, ask your nurse or doctor. CONTINUE taking these medications clopidogrel 75 mg tablet Commonly known as: PLAVIX Take 1 tablet by mouth once daily. coenzyme Q10 100 mg Cap capsule Commonly known as: COENZYME Q-10 ezetimibe 10 mg tablet Commonly known as: ZETIA Take 1 tablet by mouth once daily. lutein 6 mg Cap metoprolol succinate ER 25 mg 24 hr tablet Commonly known as: TOPROL XL Take 1 tablet by mouth once daily. nitroglycerin sublingual 0.4 mg SL tablet Commonly known as: NITROSTAT Dissolve 1 tablet under the tongue as needed for chest pain. If no pain relief call 911. pantoprazole DR 20 mg tablet Commonly known as: PROTONIX Take 1 tablet by mouth once daily. rosuvastatin 40 mg tablet Commonly known as: CRESTOR Take 1 tablet by mouth daily at bedtime. DATA: I personally reviewed and analyzed all labs, radiographs and available pulmonary function testing PFT: 04/30/2024 IMPRESSION: Spirometry is normal. Minimal reduction in diffusion that corrects for alveolar volume. Oximetry with Ambulation 05/16/2024 CXR: Last XR Chest - Impression Only XR CHEST 2V FRONTAL/LAT Exam End: 04/30/2024 12:18 PM (Final result) Impression: IMPRESSION: Findings as described above are most consistent with chronic interstitial disease. No superimposed acute process Conveyor System Operator: [facility] Transcribe Date/Time: Apr 30 2024 4:22P... CT Chest: 05/16/2024 IMPRESSION: 1. Bilateral reticular opacities in a prominently peripheral and lower lung distribution with interstitial lung disease 2. There is a 4 mm nodule in the anterior left upper lobe 3. No thoracic lymphadenopathy Conveyor System Operator: [facility] Transcribe Date/Time: May 21 2024 12:42P Dictated by : KANDY MOTA MD This examination was interpreted and the report reviewed and electronically signed by: KANDY MOTA MD on May 21 2024 1:33PM EST Results-Findings * * *Final Report* * * DATE OF EXAM: May 16 2024 10:15AM [facility] - [facility] CHEST WO IVCON / PROCEDURE REASON: Interstitial pulmonary disease (HCC) * * * * Physician Interpretation * * * * EXAMINATION: CHEST CT WITHOUT CONTRAST CLINICAL HISTORY: Interstitial pulmonary disease Technique: Spiral CT acquisition of the chest from the thoracic inlet to the upper abdome (more content not included)... Normal [facility] CT CHEST WO IVCONon 05-16-20 CT CHEST WO IVCON * * *Final Report* * * DATE OF EXAM: May 16 2024 10:15AM [facility] 0541 - CT CHEST WO IVCON / PROCEDURE REASON: Interstitial pulmonary disease (HCC) * * * * Physician Interpretation * * * * EXAMINATION: CHEST CT WITHOUT CONTRAST CLINICAL HISTORY: Interstitial pulmonary disease Technique: Spiral CT acquisition of the chest from the thoracic inlet to the upper abdomen without contrast. MQ: [id number]_6 CT Radiation dose: Integrated Dose-length product (DLP) for this visit = 233 mGy*cm CT Dose Reduction Employed: Automated exposure control(AEC) and iterative recon Comparison: No prior CT chest is available for comparison RESULT: Limitations: None. Lines, tubes, and devices: None. Lung parenchyma and airways: Bilateral reticular opacities in a predominantly peripheral and lower lung distribution with associated architectural distortion and bronchiectasis/bronchiolectasis . Bilateral lower lobe honeycombing. 4 mm nodule anterior left upper lobe (11:89). No acute airspace disease. Central airways are patent. Pleural space: No pleural effusion. No pleural thickening. Lower neck, lymph nodes, and mediastinum: The imaged thyroid gland is normal. No lymphadenopathy in the supraclavicular, axillary, mediastinal, or hilar regions. Calcified mediastinal and hilar lymph nodes consistent with remote granulomatous disease. Heart, pericardium, and thoracic vessels: The thoracic aorta and main pulmonary artery are normal in caliber. The cardiac chambers are normal in size. Postoperative changes from CABG. Coronary artery atherosclerotic calcifications are noted, although the study is not optimized for coronary assessment. No pericardial effusion or thickening. Bones and soft tissues: No destructive bone lesion. Chest wall is unremarkable. Upper abdomen: No acute abnormality in the imaged upper abdomen. Calcified splenic granulomas. Localizer images: No additional findings. IMPRESSION: 1. Bilateral reticular opacities in a prominently peripheral and lower lung distribution with interstitial lung disease 2. There is a 4 mm nodule in the anterior left upper lobe 3. No thoracic lymphadenopathy Conveyor System Operator: [facility] Transcribe Date/Time: May 21 2024 12:42P Dictated by : KANDY MOTA MD This examination was interpreted and the report reviewed and electronically signed by: KANDY MOTA MD on May 21 2024 1:33PM EST [id number] Normal [facility] OXIMETRY WITH AMBULATIONon 1 Alondra Merlos RPF T 05/16/2024 9:38 AM RESPIRATORY THERAPY OXIMETRY WITH AMBULATION Oximetry with Ambulation Test for This Encounter O2 Device O2 Adapter NC O2 Flow SpO2% HR Activity Ft Walked (ft) Time (min) Avg Speed (MPH) R/A 98 76 Resting R/A 92 103 Walking, usual pace 695 3 2.63 R/A 90 111 Walking, fastest pace 800 3 3.03 General Information Pulse Oximetry Site Total Time Spent Walking Assistance/O2 Supply Carrier L Index Finger 30 None NAME: Alondra FeldmanTHELMA salas PATIENT NAME: Marshal Carrillo DATE: May 16, 2024 TIME: 9:38 AM Comment: [facility] CNOVon 04-30-2024 CNOV Office Visit (PULMWS ) MARSHAL CARRILLO ([id number]) 1945 M Date Time Provider Department 04/30/24 1:30 PM MILLIE CHESTER PULMWS During your visit today, we recorded the following information about you: Pulse Respiration Weight Height 76/minute 16/minute 78.9 kg 1.816 m Jasmina Urban LPN 04/30/2024 12:49 PM Signed Intake information documented in the prior visit with THELMA Mireles today. Millie Chester MD 04/30/2024 5:23 PM Signed . Respiratory Lovely Note Patient name: Marshal Carrillo PCP: Amilcar Tamayo MD Referring Physician: Same Consultation requested by Dr. Tamayo for an opinion regarding COPD. My final recommendations will be communicated back to the requesting physician by way of shared Medical record or letter to requesting physician via US mail. CC: Shortness of breath HPI: Marshal Carrillo 78 year old male former 25 pack year smoker, quitting in 1985 with PMH significant for CAD s/p CABG/stents, HLD, VT, PUD with GIB, being referred for evaluation of COPD. Patient has an extensive cardiac history, status post CABG and multiple stents. He states that his cardiac disease is manifested by shortness of breath and negative nuclear medicine treadmill stress testing. He is very active walking up to 4 miles a day. He also exercises on treadmill at 4 miles an hour. He first noted issues with worsening dyspnea on exertion based on treadmill stress testing. In 2018 he could exercise up to the level for but in 2021 he had dramatic decline in his exercise capacity. When walking on his treadmill at home, he can no longer use an incline. He gets very short of breath having to rest to catch his breath. It takes him up to 5 minutes to recover once he stops and rests. He purchased an oximeter and self monitor SpO2 with activity drops to 83%. He has had some cough with mucus production ever since he had COVID in 2020. No prior respiratory illnesses such as recurrent pneumonia or asthma. Although he was a former smoker, his pulmonary function testing does not show evidence of COPD. He states that he was told his chest x-ray was consistent with COPD. Chest x-ray obtained today is more consistent with interstitial lung disease. 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 He has no current pets at home. To his knowledge, he has never been on amiodarone. He has no symptoms to suggest an autoimmune disorder. DATA: PFT 12/2023: Pulmonary function testing shows no obstruction, mild restriction and minimal reduction in diffusion which corrects for alveolar volume PFT: Pulmonary function test today confirmed the absence of obstruction and persistent diffusion defect Labs: Component Ref Range AND Units 9 mo ago (07/10/23) WBC 3.70 - 11.00 k/uL 7.15 RBC 4.20 - 6.00 m/uL 4.74 Hemoglobin 13.0 - 17.0 g/dL 14.6 Hematocrit 39.0 - 51.0 % 45.0 MCV 80.0 - 100.0 fL 94.9 MCH 26.0 - 34.0 pg 30.8 MCHC 30.5 - 36.0 g/dL 32.4 RDW-CV 11.5 - 15.0 % 13.3 Platelet Count 150 - 400 k/uL 129 Low MPV 9.0 - 12.7 fL 11.7 Absolute nRBC <0.01 k/uL <0.01 Imaging / Diagnostic Studies: DATE OF EXAM: Jan 09 2024 11:16AM [facility]OX [id number] - XR CHEST 2V FRONTAL/LAT / EXAM DATE/TIME: 01/09/2024 11:16 AM COMPARISON: No relevant prior studies available. RESULT: Lines, tubes, and devices: None. Lungs and pleura: COPD. Bibasilar atelectasis/scarring, infectiousprocess less likely. No consolidation. No lung mass. No pleural effusion. No pneumothorax. Cardiomediastinal silhouette: Normal cardiomediastinal silhouette. Bones and soft tissues: Median sternotomy wires and surgical clips. CXR today: Review of chest x-ray shows basilar increased interstitial/reticular markings PAST MEDICAL HISTORY Diagnosis Date Cardiac dysrhythmia, unspecified 07/30/2007 history of paroxysmal atrial and ventricular complexes and nonsustained ventricular tachycardia Coronary atherosclerosis of unspecified type of vessel, kaguyuk or graft 07/30/2007 [place] Date: 1985. 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 Latif Ventricular tachycardia (HCC) 12/06/2022 ALLERGIES No Known Allergies pantoprazole DR (PROTONIX) 20 mg tablet Take 1 tablet by mouth once daily. clopidogrel (PLAVIX) 75 m (more content not included)... Normal [facility] LUNG DIFFUSION CAPACITY (PASCUAL O)on 04-30-2024 DLCO (ml/min/mmHg) 16.51 ml/min/mm H g [facility] DLCO LLN (ml/min/mmHg) 14.39 ml/min/mmH g [facility] DLCO PREDICTED (ml/min/mmHg) 24.33 ml/min/mmH g [facility] DLCO ULN (ml/min/mmHg) 34.26 ml/min/mmH g [facility] DLCO/VA (ml/min/mmHg/L) 3.48 ml/min/mmH g/L [facility] DLCO/VA PREDICTED (ml/min/mmHg/L) 3.52 ml/min/mmH g/L [facility] DLCOcor PREDICTED (ml/min/mmHg) 24.33 ml/min/mmH g [facility] ERV PREDICTED (L) 1.34 L/S [facility] FEF25% PRE (L/S) 7.88 L/S [facility] ZSJ54-48% LLN (L/S) 0.78 L/S [facility] HMX32-24% PRE (L/S) 2.74 L/S [facility] UWQ24-16% PREDICTED (L/S) 2.08 L/S [facility] FEF75% LLN (L/S) 0.17 L/S [facility] FEF75% PRE (L/S0 0.79 L/S [facility] FEF75% PREDICTED (L/S) 0.51 L/S [facility] FEF75% ULN (L/S) 1.48 L/S [facility] FET PRE (S) 5.14 S [facility] FEV1 LLN (L) 2.10 L [facility] FEV1 PRE (L) 2.84 L [facility] FEV1 PREDICTED (L) 2.92 L [facility] FEV1 ULN (L) 3.69 L [facility] FEV1/FVC LLN (%) 61 % [facility] FEV1/FVC PRE (%) 79 % [facility] FEV1/FVC PREDICTED (%) 75 % [facility] FVC LLN (L) 2.95 L [facility] FVC PRE (L) 3.59 L [facility] FVC PREDICTED (L) 4.01 L [facility] FVC ULN (L) 5.09 L [facility] IC PREDICTED (L) 2.67 L/S [facility] PEF LLN (L/S) 5.08 L/S [facility] PEF PRE (L/S) 7.89 L/S [facility] PEF ULN (L/S) 9.91 L/S [facility] SVC LLN (L) 2.95 L/S [facility] SVC PREDICTED (L) 4.01 L/S [facility] SVC ULN (L) 5.09 L/S [facility] VA (L) 4.83 L [facility] VA PREDICTED (L) 7.11 L [facility] No Panel Informationon 04-30 [facility] [address] [facility], [place] [address] Test Date: 2024-04-30 Pat Name: MARSHAL CARRILLO Department: Room: Gender: M Configuration Management Specialist: : 1945 Requested By: Order Number: [id number] Reading MD: Millie Chester MD Interpretive Statements Medications and Allergies were reviewed for possible drug interactions per policy. No contraindications or sensitivities were noted. Meds taken: none before testing. Current ATS/ERS acceptability and repeatability standards for DLCO met with 2 acceptable maneuvers. The two largest FVCs were not repeatable. The two largest FEV1s were not repeatable. Extrapolated volume greater than ATS/ERS allows; FEV1 may not be valid. Best test reported despite difficult testing session. IMPRESSION: Spirometry is normal. Minimal reduction in diffusion that corrects for alveolar volume. Electronically Signed On 04-30-2024 16:31:40 EDT by Millie Chester MD ID: [id number] Name: MARSHAL CARRILLO Race: White Ht: 71.50 in Wt: 174.00 lbs Age: 78 Gender: Male : 1945 Dx: COPD_ Smoking Hx: Non-smoker Doctor: MILLIE CHESTER Test Date: 04/30/2024 Site: WO Tech: Alondra Merlos PRE-BRONCH POST-BRONCH Pre LLN Pred ULN %Pred Post %Pred %Chg SPIROMETRY FVC (L) 3.59 2.95 4.01 5.09 89 FEV1 (L) 2.84 2.10 2.92 3.69 97 FEV1/FVC 0.79 0.61 0.75 0.86 105 PEF L/s (L/sec) 7.89 5.08 7.49 9.91 105 FEF50 (L/sec) 4.29 1.80 3.93 6.05 109 FIF50 (L/sec) 6.67 FEF50/FIF50 0.64 90-100 FIVC (L) 3.58 MRK08-60 (L/sec) 2.74 0.78 2.08 4.00 132 Time (sec) 5.14 FET PEF (sec) 0.12 FABY (L) 0.19 Vol Extrap % (%) 5 LUNG DIFFUSION DLCOunc (ml/min/mmHg) 16.51 14.39 24.33 34.26 67 VA (L) 4.83 5.74 7.11 8.48 67 DLunc/VA (ml/min/mmHg/L) 3.48 2.32 3.52 4.72 98 BHT (sec) 10.70 IVC (L) 3.46 Comments: Medications and Allergies were reviewed for possible drug interactions per policy. No contraindications or sensitivities were noted. Meds taken: none before testing. Current ATS/ERS acceptability and repeatability standards for DLCO met with 2 acceptable maneuvers. The two largest FVCs were not repeatable. The two largest FEV1s were not repeatable. Extrapolated volume greater than ATS/ERS allows; FEV1 may not be valid. Best test reported despite difficult testing session. PULMONARY FUNCTION LAB [facility] XR CHEST 2V FRONTAL/LATon XR CHEST 2V FRONTAL/LAT * * *Final Report* * * DATE OF EXAM: Apr 30 2024 12:18PM [id number] 5291 - XR CHEST 2V FRONTAL/LAT / PROCEDURE REASON: Chronic obstructive pulmonary disease, unspecified COPD type (HCC) * * * * Physician Interpretation * * * * EXAMINATION: CHEST RADIOGRAPH (2 VIEW FRONTAL and LATERAL) CLINICAL HISTORY: Chronic obstructive pulmonary disease, unspecified COPD type (HCC) MQ: XC2_6 EXAM DATE/TIME: 04/30/2024 12:18 PM COMPARISON: 01/09/2024 RESULT: Lines, tubes, and devices: Mediastinal wires are seen. Lungs and pleura: Emphysema is again noted. Interstitial fibrosis, most predominant at the lung bases, is stable. No new significant collapse or consolidation. No pleural fluid or pneumothorax Cardiomediastinal silhouette: Normal cardiomediastinal silhouette. Bones and soft tissues: Unremarkable. IMPRESSION: Findings as described above are most consistent with chronic interstitial disease. No superimposed acute process Conveyor System Operator: PSCB Transcribe Date/Time: Apr 30 2024 4:22P Dictated by : AWA CONCEPCION MD This examination was interpreted and the report reviewed and electronically signed by: AWA CONCEPCION MD on Apr 30 2024 4:24PM EST [id number] Normal [facility] XR Chest PA and Lateralon IMPRESSION: Findings as described above are most consistent with chronic interstitial disease. No superimposed acute process Conveyor System Operator: PSCB Transcribe Date/Time: Apr 30 2024 4:22P Dictated by : AWA CONCEPCION MD This examination was interpreted and the report reviewed and electronically signed by: AWA CONCEPCION MD on Apr 30 2024 4:24PM EST DIVISION OF RADIOLOGY * * *Final Report* * * DATE OF EXAM: Apr 30 2024 12:18PM [id number] - XR CHEST 2V FRONTAL/LAT / PROCEDURE REASON: Chronic obstructive pulmonary disease, unspecified COPD type (HCC) * * * * Physician Interpretation * * * * EXAMINATION: CHEST RADIOGRAPH (2 VIEW FRONTAL & LATERAL) CLINICAL HISTORY: Chronic obstructive pulmonary disease, unspecified COPD type (HCC) MQ: XC2_6 EXAM DATE/TIME: 04/30/2024 12:18 PM COMPARISON: 01/09/2024 RESULT: Lines, tubes, and devices: Mediastinal wires are seen. Lungs and pleura: Emphysema is again noted. Interstitial fibrosis, most predominant at the lung bases, is stable. No new significant collapse or consolidation. No pleural fluid or pneumothorax Cardiomediastinal silhouette: Normal cardiomediastinal silhouette. Bones and soft tissues: Unremarkable. DIVISION OF RADIOLOGY [facility], [facility] 04/30/[facility]24 * * *Final Report* * * DATE OF EXAM: Apr 30 2024 12:18PM [id number] - XR CHEST 2V FRONTAL/LAT / PROCEDURE REASON: Chronic obstructive pulmonary disease, unspecified COPD type (HCC) * * * * Physician Interpretation * * * * EXAMINATION: CHEST RADIOGRAPH (2 VIEW FRONTAL & LATERAL) CLINICAL HISTORY: Chronic obstructive pulmonary disease, unspecified COPD type (HCC) MQ: XC2_6 EXAM DATE/TIME: 04/30/2024 12:18 PM COMPARISON: 01/09/2024 RESULT: Lines, tubes, and devices: Mediastinal wires are seen. Lungs and pleura: Emphysema is again noted. Interstitial fibrosis, most predominant at the lung bases, is stable. No new significant collapse or consolidation. No pleural fluid or pneumothorax Cardiomediastinal silhouette: Normal cardiomediastinal silhouette. Bones and soft tissues: Unremarkable. IMPRESSION IMPRESSION: Findings as described above are most consistent with chronic interstitial disease. No superimposed acute process Conveyor System Operator: PAMELA Transcribe Date/Time: Apr 30 2024 4:22P Dictated by : AWA CONCEPCION MD This examination was interpreted and the report reviewed and electronically signed by: AWA CONCEPCION MD on Apr 30 2024 4:24PM EST [facility] Radiology [facility]narrative) [facility] and LateralOrder ed By: [facility] Provider on 04-30-2024 [facility] No Panel Informationon 01-10 [facility] [address] [place] [address] Test Date: 2024-01-11 Pat Name: MARSHAL CARRILLO Department: Room: Gender: Male Configuration Management Specialist: : 1945 Requested By: Order Number: [id number] Reading MD: Millie Chester MD Interpretive Statements Medications and Allergies were reviewed for possible drug interactions per policy. No contraindications or sensitivities were noted. Meds taken: none before testing. The two largest FVCs[were repeatable. The two largest FEV1s were repeatable. Extrapolated volume greater than ATS/ERS allows; FEV1 may not be valid. Time to Peak Flow greater than ATS/ERS standard, FEV1 may not be valid. Current ATS/ERS acceptability and repeatability standards for lung volumes met. Current ATS/ERS acceptability and repeatability standards for DLCO met with 2 acceptable maneuvers. IMPRESSION: Spirometry shows no obstruction.The reduced FVC suggests restriction. The TLC is reduced indicating restriction. The diffusing capacity is normal. Electronically Signed On 01-11-2024 12:01:03 EDT by Millie Chester MD ID: [id number] Name: MARSHAL CARRILLO Race: White Ht: 71.50 in Wt: 174.00 lbs Age: 78 Gender: Male : 1945 Dx: COPD_ Smoking Hx: Non-smoker Doctor: TALIB JUNG Test Date: 01/11/2024 Site: [facility] Tech: Alondra Merlos PRE-BRONCH POST-BRONCH Pre LLN Pred ULN %Pred Post %Pred %Chg SPIROMETRY FVC (L) 2.74 2.96 4.02 5.09 68 FEV1 (L) 2.21 2.11 2.93 3.70 75 FEV1/FVC 0.81 0.61 0.75 0.86 107 PEF L/s (L/sec) 4.73 5.11 7.53 9.95 62 FEF50 (L/sec) 3.82 1.81 3.94 6.06 97 FIF50 (L/sec) 2.87 FEF50/FIF50 1.33 90-100 FIVC (L) 2.83 CYL33-66 (L/sec) 2.43 0.79 2.09 4.01 116 Time (sec) 5.86 FET PEF (sec) 0.26 FABY (L) 0.19 Vol Extrap % (%) 7 LUNG VOLUMES TGV (L) 3.87 2.82 4.00 5.19 96 ERV (L) 1.87 1.34 139 RV (Pleth) (L) 2.00 2.13 2.75 3.36 72 SVC (L) 3.37 2.96 4.02 5.09 83 IC (L) 1.46 2.68 54 TLC (Pleth) (L) 5.33 6.06 7.36 8.66 72 RV/TLC (Pleth) (%) 38 32 39 46 96 LUNG DIFFUSION DLCOunc (ml/min/mmHg) 15.88 14.46 24.40 34.33 65 VA (L) 5.18 5.74 7.11 8.47 72 DLunc/VA (ml/min/mmHg/L) 3.07 2.33 3.53 4.73 86 BHT (sec) 10.81 IVC (L) 3.22 Comments: Medications and Allergies were reviewed for possible drug interactions per policy. No contraindications or sensitivities were noted. Meds taken: none before testing. The two largest FVCs[were repeatable. The two largest FEV1s were repeatable. Extrapolated volume greater than ATS/ERS allows; FEV1 may not be valid. Time to Peak Flow greater than ATS/ERS standard, FEV1 may not be valid. Current ATS/ERS acceptability and repeatability standards for lung volumes met. Current ATS/ERS acceptability and repeatability standards for DLCO met with 2 acceptable maneuvers. PULMONARY FUNCTION LAB [facility] SPIROMETRY WITH DILATOR IF O BSTRUCTEDon 01-11-2024 DLCO (ml/min/mmHg) 15.88 ml/min/mm H g [facility] DLCO/VA (ml/min/mmHg/L) 3.07 ml/min/mmH g/L [facility] ERV BOX (L) 1.87 L [facility] YTP36-07% PRE (L/S) 2.43 L/S [facility] FEV1 PRE (L) 2.21 L [facility] FEV1/FVC PRE (%) 81 % [facility] FRC Box (L) 3.87 L [facility] FVC PRE (L) 2.74 L [facility] IC BOX (L) 1.46 L [facility] PEF PRE (L/S) 4.73 L/S [facility] RV Box (L) 2.00 L [facility] RV/TLC Box (%) 38 % [facility] TLC Box (L) 5.33 L [facility] VA (L) 5.18 L [facility] VC (L) BOX 3.37 L [facility] XR Chest PA and Lateralon IMPRESSION: As above. Conveyor System Operator: PSCB Transcribe Date/Time: Jan 10 2024 9:08A Dictated by : ASHLEY DEVLIN MD This examination was interpreted and the report reviewed and electronically signed by: ASHLEY DEVLIN MD on Jan 10 2024 9:09AM [facility] DIVISION OF RADIOLOGY * * *Final Report* * * DATE OF EXAM: Jan 09 2024 11:16AM [id number] - XR CHEST 2V FRONTAL/LAT / PROCEDURE REASON: Chronic obstructive pulmonary disease, unspecified COPD type (HCC) * * * * Physician Interpretation * * * * EXAMINATION: CHEST RADIOGRAPH (2 VIEW FRONTAL & LATERAL) CLINICAL HISTORY: Chronic obstructive pulmonary disease, unspecified COPD type (HCC) MQ: XC2_6 EXAM DATE/TIME: 01/09/2024 11:16 AM COMPARISON: No relevant prior studies available. RESULT: Lines, tubes, and devices: None. Lungs and pleura: COPD. Bibasilar atelectasis/scarring, infectious process less likely. No consolidation. No lung mass. No pleural effusion. No pneumothorax. Cardiomediastinal silhouette: Normal cardiomediastinal silhouette. Bones and soft tissues: Median sternotomy wires and surgical clips. DIVISION OF RADIOLOGY Provider, [facility] - 01/10/2024 * * *Final Report* * * DATE OF EXAM: Jan 09 2024 11:16AM WOX [id number] - XR CHEST 2V FRONTAL/LAT / PROCEDURE REASON: Chronic obstructive pulmonary disease, unspecified COPD type (HCC) * * * * Physician Interpretation * * * * EXAMINATION: CHEST RADIOGRAPH (2 VIEW FRONTAL & LATERAL) CLINICAL HISTORY: Chronic obstructive pulmonary disease, unspecified COPD type ([facility]) MQ: XC2_6 EXAM DATE/TIME: 01/09/2024 11:16 AM COMPARISON: No relevant prior studies available. RESULT: Lines, tubes, and devices: None. Lungs and pleura: COPD. Bibasilar atelectasis/scarring, infectious process less likely. No consolidation. No lung mass. No pleural effusion. No pneumothorax. Cardiomediastinal silhouette: Normal cardiomediastinal silhouette. Bones and soft tissues: Median sternotomy wires and surgical clips. IMPRESSION IMPRESSION: As above. Conveyor System Operator: PSCB Transcribe Date/Time: Jan 10 2024 9:08A Dictated by : ASHLEY DEVLIN MD This examination was interpreted and the report reviewed and electronically signed by: ASHLEY DEVLIN MD on Jan 10 2024 9:09AM EST [facility] XR Chest PA and LateralOrder ed By: Ccf Provider on 01-10-2024 [facility] XR Chest PA and Lateralon Radiology Study observation (narrative) [facility] Orthopedic Visit Reporton Orthopedic Visit Report [facility] [address] [place] [address] OFFICE VISIT Date of Service: 10/12/23 MR#: [id number] Acct: [id number] Name: MARSHAL CARRILLO Rep #: [id number] : 1945 Provider: Dr. Jonathan Marsh MD Age/Sex: 78/M Location: [facility] Status: Signed Intake Vital Signs 09/05/23 09:09 Height 6 ft Intake Visit Reasons: LEFT WRIST Accompanied by: Self Is patient in pain?: No Allergies No Known Allergies Allergy (Verified 10/12/23 10:30) Medications coenzyme Q10 100 mg capsule 100 mg PO DAILY 11/23/17 [History Confirmed 10/12/23] flaxseed oil 1,000 mg capsule 1,000 mg PO DAILY 11/27/17 [History Confirmed 10/12/23] lutein 6 mg capsule 6 mg PO DAILY 11/27/17 [History Confirmed 10/12/23] clopidogrel 75 mg tablet 75 mg PO DAILY #90 tabs 08/29/22 [Rx Confirmed 10/12/23] ezetimibe 10 mg tablet 10 mg PO DAILY #90 tabs 08/29/22 [Rx Confirmed 10/12/23] metoprolol succinate 25 mg tablet,extended release 24 hr 25 mg PO QHS #90 tabs 08/29/22 [Rx Confirmed 10/12/23] pantoprazole 20 mg tablet,delayed release 20 mg PO DAILY 10/13/22 [History Confirmed 10/12/23] nitroglycerin 0.4 mg sublingual tablet (Nitrostat) 0.4 mg sublingual Q5-15M PRN Chest pain #25 tabs 04/18/23 [Rx Confirmed 10/12/23] rosuvastatin 40 mg tablet 40 mg PO DAILY 09/07/23 [History Confirmed 10/12/23] [facility] Medical History Atherosclerotic heart disease of [place] coronary artery without angina pectoris COVID-19 Diaphoresis Encounter for long-term current use of high risk medication Encounter for screening for COVID-19 Essential hypertension Hematemesis HLD (hyperlipidemia) Lightheaded Old myocardial infarction Paroxysmal ventricular tachycardia Premature atrial contractions Premature ventricular contraction Presence of stent in coronary artery ( 12/03/14) Pure hypercholesterolemia Screening for intestinal cancer Supraventricular tachycardia Surgical History Aortocoronary bypass status ( 07/1986) Cataract extraction status, right eye History of local excision of skin lesion History of Mohs micrographic surgery for skin cancer Postsurgical percutaneous transluminal coronary angioplasty (PTCA) status Presence of coronary angioplasty implant and graft ( 12/03/14) Family History Father CAD (coronary artery disease) Mother CAD (coronary artery disease) Myocardial infarction Sister Diabetes Arthritis Social History Smoking Status: Former smoker alcohol intake: never substance use type: does not use caffeine: Yes Type: carbonated beverages what type of physical activity do you participate in: walking frequency: 5-6 times per week duration: 45-60 minutes/day seatbelt use: always do you feel safe at home: Yes HPI LEFT WRIST Details: This documentation accurately reflects the service provided and the decisions made by me, Dr. Jonathan Marsh MD 10/12/23 1027. Part of today???s visit was documented by Rupali BORGES, acting as scribe. MARSHAL CARRILLO is a 78 year old M here today for follow-up of left wrist. Patient states he is not currently experiencing any pain. Patient states that the cast is still holding up well. Denies numbness, tingling or other associated symptoms. Marshal is here for follow-up and is almost 5 weeks since his injury in late August. He is tolerating the cast well. He says that the fracture area is no longer hurting. He has been able to move his fingers without any swelling or discomfort. Ortho Exam General General: Yes no acute distress Neurologic: Yes alert and Yes oriented x3 Spine SPINE TESTING CERVICAL THORACIC LUMBAR Musculoskeletal Strength 0=absent - 5=normal Details: Examination of the left hand in cast shows free active movements of all fingers and thumb without any distal neurovascular deficit. Cast was removed today in the clinic. No tenderness in the fracture area. Coding Level of Care Code Off vis,est,level 3 Diagnoses Other closed intra-articular fracture of distal end of left radius, sequela S52.572S Encounter type: sequela Fracture morphology: other intra-articular Time Spent (min) 30 Assessment and Plan Assessment and Plan (1) Closed fracture of left distal radius: Status: Acute Qualifiers: Encounter type: sequela Fracture morphology: other intra-articular Qualified Code(s): S52.572S - Other intraarticular fracture of lower end of left radius, sequela Orders: Orders Wrist min 3 Views Today S52.502A - Unspecified fracture of the lower end of left radius, initial encounter for closed fracture Plan X-rays within cast show good m (more content not included)... Normal [facility] Wrist min 3 Viewson 10-12-19 24 Wrist min 3 Views [facility] [address] [place] [address] Wrist min 3 Views MR#: [id number] Acct: [id number] Name: MARSHAL CARRILLO Rep #: [id number] : 1945 M 78 From: Olga romo MD PCP: Dr. Amilcar Tamayo MD Status: DEP AMB Study: Wrist min 3 Views Date of Exam: 10/12/23 Exam# [id number] Ordering Dr: Jonathan Marsh MD [id number] INDICATION: distal radius fx EXAMINATION/TECHNIQUE: X-RAY - LEFT XR Wrist Min 3 Views 3 VIEWS COMPARISON: 09/14/2023, 09/05/2023 FINDINGS: Patient is casted in fiberglass which reduces bony detail. Previously noted fracture is not well demonstrated. No new or displaced fracture. Alignment is anatomic. Joint spaces are well-maintained. Soft tissues are unremarkable. RAD/Wrist min 3 Views IMPRESSION: Anatomic alignment. No new fracture. Electronically Signed: Olga Benson MD at 19:42 EST Reading Location ID and State: [id number] / Tel , Service support , CC: Dr. Jonathan Marsh MD; Dr. Amilcar Tamayo MD Conveyor System Operator: Signed Normal [facility] Orthopedic Visit Reporton Orthopedic Visit Report [facility] [address] [place] [address] OFFICE VISIT Date of Service: 09/14/23 MR#: [id number] Acct: [id number] Name: MARSHAL CARRILLO Rep #: [id number] : 1945 Provider: Dr. Jonathan Marsh MD Age/Sex: 78/M Location: [facility] Status: Signed Intake Vital Signs 09/05/23 09:09 Height 6 ft Intake Visit Reasons: LEFT WRIST Is patient in pain?: Yes Allergies No Known Allergies Allergy (Verified 09/14/23 10:36) Medications coenzyme Q10 100 mg capsule 100 mg PO DAILY 11/23/17 [History Confirmed 09/14/23] flaxseed oil 1,000 mg capsule 1,000 mg PO DAILY 11/27/17 [History Confirmed 09/14/23] lutein 6 mg capsule 6 mg PO DAILY 11/27/17 [History Confirmed 09/14/23] clopidogrel 75 mg tablet 75 mg PO DAILY #90 tabs 08/29/22 [Rx Confirmed 09/14/23] ezetimibe 10 mg tablet 10 mg PO DAILY #90 tabs 08/29/22 [Rx Confirmed 09/14/23] metoprolol succinate 25 mg tablet,extended release 24 hr 25 mg PO QHS #90 tabs 08/29/22 [Rx Confirmed 09/14/23] pantoprazole 20 mg tablet,delayed release 20 mg PO DAILY 10/13/22 [History Confirmed 09/14/23] nitroglycerin 0.4 mg sublingual tablet (Nitrostat) 0.4 mg sublingual Q5-15M PRN Chest pain #25 tabs 04/18/23 [Rx Confirmed 09/14/23] rosuvastatin 40 mg tablet 40 mg PO DAILY 09/07/23 [History Confirmed 09/14/23] [facility] Medical History Atherosclerotic heart disease of [place] coronary artery without angina pectoris COVID-19 Diaphoresis Encounter for long-term current use of high risk medication Encounter for screening for COVID-19 Essential hypertension Hematemesis HLD (hyperlipidemia) Lightheaded Old myocardial infarction Paroxysmal ventricular tachycardia Premature atrial contractions Premature ventricular contraction Presence of stent in coronary artery ( 12/03/14) Pure hypercholesterolemia Screening for intestinal cancer Supraventricular tachycardia Surgical History Aortocoronary bypass status ( 07/1986) Cataract extraction status, right eye History of local excision of skin lesion History of Mohs micrographic surgery for skin cancer Postsurgical percutaneous transluminal coronary angioplasty (PTCA) status Presence of coronary angioplasty implant and graft ( 12/03/14) Family History Father CAD (coronary artery disease) Mother CAD (coronary artery disease) Myocardial infarction Sister Diabetes Arthritis Social History Smoking Status: Former smoker alcohol intake: never substance use type: does not use caffeine: Yes Type: carbonated beverages what type of physical activity do you participate in: walking frequency: 5-6 times per week duration: 45-60 minutes/day seatbelt use: always do you feel safe at home: Yes HPI LEFT WRIST Details: This documentation accurately reflects the service provided and the decisions made by me, Dr. Jonathan Marsh MD 09/14/23 1035. Part of today???s visit was documented by Sammi Fajardo ATC, acting as scribe. MARSHAL CARRILLO is a 78 year old M here today for follow-up of left wrist. Patient states he is not currently experiencing any pain but does state his wrist is achy. Patient states he will take Tylenol at night so he can sleep well and keep the achiness down but has not been taking anything for pain during the day. Patient states the cast is still holding up well. Marshal says that he has minor ache in the region of the wrist and the dorsal hand. He says the cast is holding up pretty well. He denies any significant swelling. He is using his left hand for light work. Following his his previous history. 09/07/23: MARSHAL CARRILLO is a 78 year old M here today for ED F/U closed fracture of left distal radius. He states that Monday he was outside walking and slipped on ice and fell backwards landing on his buttocks but is unsure how he landed with his wrist. He states that he doesn't have pain when he's not using the hand but if he tries to ticker installer something he does have pain. He describes his pain as an aching pain. He takes Tylenol for the pain but notes that the Tylenol doesn't help with the pain he gets when he tries to ticker installer something. Denies numbness, tingling or other associated symptoms. He states that he has good ROM. He states that if he tries to ticker installer anything he gets a sharp pain and that his thumb id the most sensitive. Marshal slipped and fell on ice on Monday. He says that he fell backwards but somehow injured his left wrist. He says that his pain has been minimal after the splint application in the ER. He denies any other injuries. He did hit his head but was evaluated in the ER for head injury. He denies any tingling n (more content not included)... Normal [facility] Wrist min 3 [facility] 09-14-19 24 Wrist min 3 Views [facility] [address] [place] [address] Wrist min 3 Views MR#: [id number] Acct: [id number] Name: MARSHAL CARRILLO Rep #: [id number] : 1945 M 78 From: Nilson valadez MD PCP: Dr. Amilcar Tamayo MD Status: DEP AMB Study: Wrist min 3 Views Date of Exam: 09/14/23 Exam# [id number] Ordering Dr: Jonathan Marsh MD [id number] STUDY: X-RAY - LEFT WRIST REASON FOR EXAM: Male, 78 years old. Left distal radius fracture TECHNIQUE: 3 view(s) of the wrist were obtained. COMPARISON: 03/05/2024. FINDINGS: Cast obscures bone detail. Normal bone contours. Previously seen fracture of the distal radial metaphysis and through the base of the radial styloid, is in anatomic alignment and position. Small mildly displaced fracture of the tip of the ulnar styloid, also stable. ____ RAD/Wrist min 3 Views IMPRESSION: Distal radial fracture in anatomic alignment and position. Electronically Signed: Nilson Jaffe MD at 16:55 EST , CC: Dr. Jonathan Marsh MD; Dr. Amilcar Tamayo MD Conveyor System Operator: Signed Normal [facility] Orthopedic Visit Reporton Orthopedic Visit Report [facility] [address] [place] [address] OFFICE VISIT Date of Service: 09/07/23 MR#: [id number] Acct: [id number] Name: MARSHAL CARRILLO Rep #: [id number] : 1945 Provider: Dr. Jonathan Marsh MD Age/Sex: 78/M Location: [facility] Status: Signed with Addenda ADDENDUM by Betsy Sterling on 09/07/23 at 1124 Office Procedure Documentation entered by Betsy Sterling 09/07/23 11:24: Cast Applied Cast Cast placed: Short arm cast applied to Left Closed treatment of... distal radial fx/epi sep,w/w/o fx ulnar sty;w/o manip 91200: Yes Navarre Navarre Material: No Date ____ cc: Dr. Amilcar Tamayo MD * Signed Intake Vital Signs 09/05/23 09:09 Height 6 ft Intake Visit Reasons: LEFT WRIST Accompanied by: Self Allergies No Known Allergies Allergy (Verified 09/07/23 10:23) Medications coenzyme Q10 100 mg capsule 100 mg PO DAILY 11/23/17 [History Confirmed 09/07/23] flaxseed oil 1,000 mg capsule 1,000 mg PO DAILY 11/27/17 [History Confirmed 09/07/23] lutein 6 mg capsule 6 mg PO DAILY 11/27/17 [History Confirmed 09/07/23] clopidogrel 75 mg tablet 75 mg PO DAILY #90 tabs 08/29/22 [Rx Confirmed 09/07/23] ezetimibe 10 mg tablet 10 mg PO DAILY #90 tabs 08/29/22 [Rx Confirmed 04/18/23] metoprolol succinate 25 mg tablet,extended release 24 hr 25 mg PO QHS #90 tabs 08/29/22 [Rx Confirmed 09/07/23] pantoprazole 20 mg tablet,delayed release 20 mg PO DAILY 10/13/22 [History Confirmed 09/07/23] nitroglycerin 0.4 mg sublingual tablet (Nitrostat) 0.4 mg sublingual Q5-15M PRN Chest pain #25 tabs 04/18/23 [Rx Confirmed 04/18/23] rosuvastatin 40 mg tablet 40 mg PO DAILY 09/07/23 [History Confirmed 09/07/23] [facility] Medical History Atherosclerotic heart disease of [place] coronary artery without angina pectoris COVID-19 Diaphoresis Encounter for long-term current use of high risk medication Encounter for screening for COVID-19 Essential hypertension Hematemesis HLD (hyperlipidemia) Lightheaded Old myocardial infarction Paroxysmal ventricular tachycardia Premature atrial contractions Premature ventricular contraction Presence of stent in coronary artery ( 12/03/14) Pure hypercholesterolemia Screening for intestinal cancer Supraventricular tachycardia Surgical History Aortocoronary bypass status ( 07/1986) Cataract extraction status, right eye History of local excision of skin lesion History of Mohs micrographic surgery for skin cancer Postsurgical percutaneous transluminal coronary angioplasty (PTCA) status Presence of coronary angioplasty implant and graft ( 12/03/14) Family History Father CAD (coronary artery disease) Mother CAD (coronary artery disease) Myocardial infarction Sister Diabetes Arthritis Social History Smoking Status: Former smoker alcohol intake: never substance use type: does not use caffeine: Yes Type: carbonated beverages what type of physical activity do you participate in: walking frequency: 5-6 times per week duration: 45-60 minutes/day seatbelt use: always do you feel safe at home: Yes HPI LEFT WRIST Details: This documentation accurately reflects the service provided and the decisions made by me, Dr. Jonathan Marsh MD 09/07/23 1020. Part of today???s visit was documented by Rupali BORGES, acting as scribe. MARSHAL CARRILLO is a 78 year old M here today for ED F/U closed fracture of left distal radius. He states that Monday he was outside walking and slipped on ice and fell backwards landing on his buttocks but is unsure how he landed with his wrist. He states that he doesn't have pain when he's not using the hand but if he tries to ticker installer something he does have pain. He describes his pain as an aching pain. He takes Tylenol for the pain but notes that the Tylenol doesn't help with the pain he gets when he tries to ticker installer something. Denies numbness, tingling or other associated symptoms. He states that he has good ROM. He states that if he tries to ticker installer anything he gets a sharp pain and that his thumb id the most sensitive. Marshal slipped and fell on ice on Monday. He says that he fell backwards but somehow injured his left wrist. He says that his pain has been minimal after the splint application in the ER. He denies any other injuries. He did hit his head but was evaluated in the ER for head injury. He denies any tingling numbness in the fingers. Ortho Exam General General: Yes no acute distress Neurologic: Yes alert and Yes oriented x3 Left Wrist/Hand Date of injury: 09/05/23 WRIST: Exami (more content not included)... [facility] Brain/Head without Contrasto n 09-05-2023 Brain/Head without Contrast [facility] Imaging Services [address] [place] [address] Brain/Head without Contrast MR#: [id number] Acct: [id number] Name: MARSHAL CARRILLO Rep #: [id number] : 1945 78 From: Tanvir maharaj MD PCP: Dr. Amilcar Tamayo MD Status: REG ER Study: Brain/Head without Contrast Date of Exam: 08/15 11/04 Exam# [id number] Ordering Dr: Demarcus Greene DO [id number] STUDY: CT BRAIN WITHOUT CONTRAST REASON FOR EXAM: Male, 78 years old. Head injury on Plavix RADIATION DOSAGE (If Supplied By Facility): CTDIvol = ( 44.99 ) mGy, DLP = ( 812.98 ) mGycm TECHNIQUE: Transaxial CT imaging of the brain was performed without administration of intravenous contrast material. Individualized dose optimization techniques were used for this CT. COMPARISON: No relevant priors. ____ FINDINGS: Normal soft tissue structures. Normal calvarium. There is mild cerebral atrophy with widening of the extra-axial spaces and ventricular dilatation. There are areas of decreased attenuation within the white matter tracts of the supratentorial brain, consistent with microvascular disease changes. Normal basal ganglia and thalami. Normal brainstem. Normal cerebellum. There is no intracranial hemorrhage. There are no findings of an acute ischemic infarction. Atherosclerotic plaque formation of the vertebral arteries and cavernous portions of the internal carotid arteries bilaterally. Normal visualized paranasal sinuses. ____ CT/Brain/Head without Contrast IMPRESSION: Chronic involutional changes of the brain. Electronically Signed: Tanvir Coughlin MD at 10:39 EST Reading Location ID and State: [address] [place] [address] , Service support , CC: Dr. Demarcus Greene DO; Dr. Amilcar Tamayo MD Conveyor System Operator: Signed Normal [facility] Emergency Department Summary on 09-05-2023 Emergency Department Summary [facility] Medical Records Department [address] [place] [id number] Emergency Department Summary 09/05/23 MR#: [id number] Acct: [id number] Name: MARSHAL CARRILLO Rep #: [id number] : 1945 78 From: Demarcus Greene DO PCP: Dr. Amilcar Tamayo MD Status:DEP ER Location: ED HPI HPI - Fall History of Present Illness Chief Complaint: Head Injury Informant: patient Narrative Narrative: 78-year-old male was attempting to cross the street today when he slipped on the ice falling backwards and striking his head on the ground. States he first landed on his buttocks and then went Backwards. He does remember striking his head. No loss of consciousness. He denies any headache. Patient states that he also somehow injured the left wrist and notes swelling and pain over the dorsum. He states that he takes Plavix for coronary artery disease. No nausea or vomiting. He denies any back or neck pain. [facility] Medical History Atherosclerotic heart disease of [place] coronary artery without angina pectoris COVID-19 Diaphoresis Encounter for long-term current use of high risk medication Encounter for screening for COVID-19 Essential hypertension Hematemesis HLD (hyperlipidemia) Lightheaded Old myocardial infarction Paroxysmal ventricular tachycardia Premature atrial contractions Premature ventricular contraction Presence of stent in coronary artery ( 12/03/14) Pure hypercholesterolemia Screening for intestinal cancer Supraventricular tachycardia Home Medications coenzyme Q10 100 mg capsule 100 mg PO DAILY 11/23/17 [History Last Taken Unknown] flaxseed oil 1,000 mg capsule 1,000 mg PO DAILY 11/27/17 [History Last Taken Unknown] lutein 6 mg capsule 6 mg PO DAILY 11/27/17 [History Last Taken Unknown] atorvastatin 80 mg tablet 80 mg PO QHS #90 tabs 08/29/22 [Rx Last Taken Unknown] clopidogrel 75 mg tablet 75 mg PO DAILY #90 tabs 08/29/22 [Rx Last Taken Unknown] ezetimibe 10 mg tablet 10 mg PO DAILY #90 tabs 08/29/22 [Rx Last Taken Unknown] metoprolol succinate 25 mg tablet,extended release 24 hr 25 mg PO QHS #90 tabs 08/29/22 [Rx Last Taken Unknown] pantoprazole 20 mg tablet,delayed release 20 mg PO DAILY 10/13/22 [History Last Taken Unknown] nitroglycerin 0.4 mg sublingual tablet (Nitrostat) 0.4 mg sublingual Q5-15M PRN Chest pain #25 tabs 04/18/23 [Rx Last Taken Unknown] Allergy/AdvReac Type Severity Reaction Status Date / Time No Known Allergies Allergy Verified 09/05/23 09:08 Family History Father CAD (coronary artery disease) Mother CAD (coronary artery disease) Myocardial infarction Sister Diabetes Arthritis Surgical History Aortocoronary bypass status ( 07/1986) Cataract extraction status, right eye History of local excision of skin lesion History of Mohs micrographic surgery for skin cancer Postsurgical percutaneous transluminal coronary angioplasty (PTCA) status Presence of coronary angioplasty implant and graft ( 12/03/14) Social History Smoking Status: Former smoker alcohol intake: never substance use type: does not use caffeine: Yes Type: carbonated beverages what type of physical activity do you participate in: walking frequency: 5-6 times per week duration: 45-60 minutes/day seatbelt use: always do you feel safe at home: Yes ROS ROS ED Constitutional Constitutional ED: Denies chills, fever(s) or weight loss Eyes Eyes: Denies change in vision or diplopia ENT ENT ED: Denies ear pain, rhinorrhea or sore throat Cardiovascular Cardiovascular: Denies chest pain, orthopnea, palpitations or racing heartbeat Respiratory/Chest Respiratory/Chest: Denies cough, dyspnea or orthopnea Gastrointestinal Gastrointestinal: Denies abdominal pain, diarrhea, nausea or vomiting Genitourinary Genitourinary ED: Denies dysuria, hematuria or urinary frequency Musculoskeletal Musculoskeletal: Reports other Details: Left wrist pain ; Denies arthralgias, back pain, myalgias or neck pain Integumentary Denies abscess or rash Neurologic Neurologic: Denies headache(s) or weakness Psychiatric Psychiatric: Denies anxiety, depression, suicidal ideation or suicidal thoughts Endocrine Endocrinology: Denies polydipsia, polyphagia or polyuria Allergic/Immunologic Allergic/Immunologic ED: Denies mouth swelling, tongue swelling or urticaria EXAM Physical Exam Const Vital Signs: 09/05/23 09:09 09/05/23 09:35 09/05/23 09:35 Temperature 97.9 F Temperature Source Temporal Pulse Rate 68 68 Respiratory Rate 14 14 Respiratory Effort Normal Non-Labored Blood Pressure 133/69 H Blood Press (more content not included)... Normal [facility] Wrist min 3 Viewson 09-05-19 24 Wrist min 3 Views [facility] Imaging Services [address] [place] [address] Wrist min 3 Views MR#: [id number] Acct: [id number] Name: MARSHAL CARRILLO Rep #: [id number] : 1945 M 78 From: Tanvir maharaj MD PCP: Dr. Amilcar Tamayo MD Status: REG ER Study: Wrist min 3 Views Date of Exam: 09/05/23 Exam# [id number] Ordering Dr: Demarcus Greene DO [id number] STUDY: X-RAY - LEFT WRIST REASON FOR EXAM: Male, 78 years old. Pain following a fall. TECHNIQUE: 3 view(s) of the wrist were obtained. COMPARISON: None. FINDINGS: There is a nondisplaced fracture through the lateral aspect of the distal radius extending to the articular surface. Nondisplaced avulsion fracture of the ulnar styloid. Normal radiocarpal articulation. Normal distal radioulnar articulation. Normal carpal bones. Normal carpal articulations. Normal carpometacarpal articulation of the thumb. Normal second through fifth carpometacarpal articulations. Normal visualized metacarpal bones. Soft tissue swelling. ____ RAD/Wrist min 3 Views IMPRESSION: Nondisplaced fracture of the distal radius with extension to the articular surface. Wall fracture of the ulnar styloid. Soft tissue swelling. Electronically Signed: Tanvir Coughlin MD at 10:38 EST Reading Location ID and State: [facility] / [place] , Service support , CC: Dr. Demarcus Greene DO; Dr. Amilcar Tamayo MD Conveyor System Operator: Signed Normal [facility] PET/CT CARDIAC PERF REST/ STRESSon 07-11-2023 [facility] Cardiology Visit Reporton Cardiology Visit Report [facility] [address] [place] [address]. [address] [place] [address] OFFICE VISIT Date of Service: 04/18/23 MR#: [id number] Acct: [id number] Name: MARSHAL CARRILLO Rep #: [id number] : 1945 Provider: Dr. Dale Stock MD Age/Sex: 77/M Location: [facility] [place] Status: Signed [facility] History of Present Illness Details: This patient is here for follow-up visit. He has history of coronary artery disease status post CABG and then status post PCI with drug-eluting stents. Denies any complaints today. No chest pain. He has chronic shortness of breath with exertion which remains unchanged. Denies any orthopnea or PND. No ankle edema. Intake Vital Signs 10/13/22 15:10 04/18/23 14:06 Height 6 ft 6 ft Weight: 178 lb 4 oz 173 lb BMI 24.1 23.4 BP 138/72 H 153/73 H Blood Pressure Location Lt brachial Lt brachial Position Sitting Sitting Respiration 16 16 Pulse 60 69 Pulse Source Auscultation Monitor Intake Visit Reasons: 6 m fu PREV PFM PT Pipe Stem Sawyer Required: No Accompanied by: Self Is patient in pain?: No Allergies No Known Allergies Allergy (Verified 04/18/23 14:06) Medications coenzyme Q10 100 mg capsule 100 mg PO DAILY 11/23/17 [History Confirmed 04/18/23] flaxseed oil 1,000 mg capsule 1,000 mg PO DAILY 11/27/17 [History Confirmed 04/18/23] lutein 6 mg capsule 6 mg PO DAILY 11/27/17 [History Confirmed 04/18/23] atorvastatin 80 mg tablet 80 mg PO QHS #90 tabs 08/29/22 [Rx Confirmed 04/18/23] clopidogrel 75 mg tablet 75 mg PO DAILY #90 tabs 08/29/22 [Rx Confirmed 04/18/23] ezetimibe 10 mg tablet 10 mg PO DAILY #90 tabs 08/29/22 [Rx Confirmed 04/18/23] metoprolol succinate 25 mg tablet,extended release 24 hr 25 mg PO QHS #90 tabs 08/29/22 [Rx Confirmed 04/18/23] pantoprazole 20 mg tablet,delayed release 20 mg PO DAILY 10/13/22 [History Confirmed 04/18/23] nitroglycerin 0.4 mg sublingual tablet (Nitrostat) 0.4 mg sublingual Q5-15M PRN Chest pain #25 tabs 04/18/23 [Rx Confirmed 04/18/23] Ejection fraction %: 65 to 70 [facility] Medical History (Updated 04/18/23 @ 14:[address] Dale Stock MD) Atherosclerotic heart disease of [place] coronary artery without angina pectoris COVID-19 Diaphoresis Encounter for long-term current use of high risk medication Encounter for screening for COVID-19 Essential hypertension Hematemesis HLD (hyperlipidemia) Lightheaded Old myocardial infarction Paroxysmal ventricular tachycardia Premature atrial contractions Premature ventricular contraction Presence of stent in coronary artery ( 12/03/14) Pure hypercholesterolemia Screening for intestinal cancer Supraventricular tachycardia Surgical History Aortocoronary bypass status ( 07/1986) Cataract extraction status, right eye History of local excision of skin lesion History of Mohs micrographic surgery for skin cancer Postsurgical percutaneous transluminal coronary angioplasty (PTCA) status Presence of coronary angioplasty implant and graft ( 12/03/14) Family History Father CAD (coronary artery disease) Mother CAD (coronary artery disease) Myocardial infarction Sister Diabetes Arthritis Social History Smoking Status: Former smoker alcohol intake: never substance use type: does not use caffeine: Yes Type: carbonated beverages what type of physical activity do you participate in: walking frequency: 5-6 times per week duration: 45-60 minutes/day seatbelt use: always do you feel safe at home: Yes ROS Const Const: Negative for fatigue, weakness, headache(s), daytime sleepiness or difficulty sleeping Eyes Eyes: Negative for change in vision ENT ENT: Negative for headache(s), dizziness or Nosebleed/epistaxis Cardio Chest Pain: No Palpitations: No Edema: None Muscle aches with walking: None Resp Respiratory: Negative for SOB with activity, SOB at rest, SOB orthopnea SOB lying down or Cough GI GI: Negative nausea, vomiting or heartburn Neuro Neuro: Negative for dizziness, lightheadedness, near syncope, headache(s) or weakness Endo Endo: Negative for fatigue Cardiology Exam Const Appearance: comfortable and no acute distress Nutritional Appearance: well nourished Neck Neck: no JVD Carotids: Negative bruit Chest Auscultation: Bilateral: Clear to Auscultation Cardio Rate: regular rate Rhythm: regular rhythm Heart sounds: S1 normal and S2 normal Neuro General: patient alert, patient awake and patient oriented x3 Extremities Lower Extremity Edema: None: Bilateral Supplemental Info Supplemental Information ECHOCARDIOGRAM 06/27/22: CONCLUSIONS - The left ventricle is normal in size. There is mild (more content not included)... [facility] US SCREENING FOR AAAon 06-20 [facility] Basophil percentageon 2021 Bilirubin [Mass/Vol] 0.70 mg/dL 0.20-1.00 [facility] Work Phone: Comment on above: For patients on eltr ombopag therapy, use of Dimension [place] TBIL is not recommended. Cholesterol [Mass/Vol] 143 mg/dL <200 [facility] Work Phone: Comment on above: <200 mg/dL Desirable 200-240 mg/dL Borderline >240 mg/dL High Risk Protein [Mass/Vol] 6.7 g/dL 6.4-8.2 [facility] Work Phone: Triglyceride [Mass/Vol] 91 mg/dL [facility] Work Phone: Comment on above: The drugs N-Acetylcy steine and Metamizole may falsely depress this assay.Serum Triglycerides Reference Interval Normal <150 mg/dL Borderline high 150 - 199 mg/dL High 200 - 499 mg/dL Very High > or = 500 mg/dL Direct bilirubinon 2 Bilirubin.direct [Mass/Vol] 0.20 mg/dL 0.00-0.30 [facility] Work Phone: Laboratory - Chemistry and C hemistry - challengeon 10-26-2021 ALP [Catalytic activity/Vol] 64 U/L 45-117 [facility] Work Phone: ALT [Catalytic activity/Vol] 20 U/L 16-61 [facility] Work Phone: Globulin (S) [Mass/Vol] 3.4 g/dL 2.2-4.2 [facility] Work Phone: Serum or plasma albumin kal urement (mass/volume)on 10-26-2021 Albumin [Mass/Vol] 3.3 g/dL 3.2-5.0 [facility] Work Phone: Serum or plasma cholesterol in HDL measurement (mass/volume)on 10-26-2021 Cholesterol in HDL [Mass/Vol] 51 mg/dL [facility] Work Phone: Comment on above: The drugs N-Acetylcy steine and Metamizole may falsely depress this assay. Reference Range HDL <40 mg/dL Low HDL Cholesterol HDL >or= 60 mg/dL High HDL Cholesterol Serum or plasma cholesterol in VLDL measurement (mass/volume)on 10-26-2021 Cholesterol in VLDL [Mass/Vol] 18 mg/dL 5-40 [facility] Work Phone: Serum or plasma low density lipoprotein (LDL) cholesterol measurement (mass/volume)on 10-26-2021 Cholesterol in LDL [Mass/Vol] 74 mg/dL 0-130 [facility] Work Phone: Thin prep Papanicolaou smear with manual screeningon 10-26-2021 Thin prep Papanicolaou smear with manual screening 23 U/L 15-37 [facility] Work Phone: No Panel Informationon 08-13 POC SARS CoV-2 Antigen Positive [facility] Work Phone: ANES [place] 02-28-2018 ANES POST HNO ID: [id number] thor: Dayanna Fletcherervice: AnesthesiologyAuthor Type: AnesthesiologistType: Anesthesia PostOpFiled: 02/28/2018 11:58 AMNote Text:POST ANESTHESIA EVALUATION NOTESERVICE DATE: 02/28/2018SERVICE TIME: 11:58 AMDOB: 1945Vitals: 02/28/1811Temp: 36.2 ?C (97.1 ?F) 36.2 ?C (97.2 ?F) 02/28/1811BP: 160/88 120/63 122/63 02/28/1811Pulse: 62 68 67 02/28/1811Resp: 18 16 16 02/28/1811SpO2: 100% 100% 100%Validated Vital Signs: YesPOST ANES STATUS: No apparent anesthetic complications. The patient isappropriately hydrated with stable respiratory and cardiovascular status.Patient has safe and adequate airway control. The patient has appropriatepain relief and no significant post operative nausea or vomiting. Thepatient has achieved baseline mental status.Further assessment by Anesthesia Service: NoneOther Remarks:SIGNATURE: Dayanna Dykes MD PATIENT NAME: Marshal CarrilloDATE: February 28, 2018 PAGER/CONTACT #[facility] PREOPon 02-28-2018 ANES PREOP HNO ID: [id number] thor: Dayanna ZamaniniService: AnesthesiologyAuthor Type: AnesthesiologistType: Anesthesia PreOpFiled: 02/28/2018 10:00 AMNote Text: ANESTHESIOLOGY DAY OF SURGERY NOTESERVICE DATE: 02/28/2018SERVICE TIME: 10:00 AMDOB: 4Procedure(s) (LRB):TRANSFER / REARRANGEMENT,ADJACENT TISSUE, EYELIDS, NOSE, EARS DEFECT 10 SQCM OR LESS (Left)GRAFT SKIN FULL THICKNESS FREE, INCL DIRECT CLOSURE DONOR SITE, NOSE,EARS, EYELIDS, AND/OR LIPS; 20 SQ CM OR LESS (Left)Surgeon(s):Watson ZunigainEstimenrique body mass index is 25.69 kg/m? as calculated from the following: Height as of 02/23/18: 182.9 cm (6'). Weight as of 02/23/18: 85.9 kg (189 lb 6.4 oz).Most recent hematocrit and potassium results:Hematocrit 46.2 01/12/2018Potassium 4.4 01/12/2018ANES DOS/PREOP NOTE:Vitals:There were no vitals filed for this visit.ACTIVE PROBLEM LISTHyperlipidemiaEnthesopathy of Ankle and Tarsus, UnspecifiedCoronary AtherosclerosisCardiac Dysrhythmia, UnspecifiedEssential HypertensionOld Myocardial InfarctionPvc (Premature Ventricular Contraction)S/P Drug Eluting Coronary Stent PlacementS/P Cabg (Coronary Artery Bypass Graft)Chronic Idiopathic Thrombocytopenia (Hcc)Bcc (Basal Cell Carcinoma of Skin)Basal Cell Carcinoma of Left Lower EyelidPAST MEDICAL HISTORYDiagnosis Date- Cardiac dysrhythmia, unspecified 07/30/2007 history of paroxysmal atrial and ventricular complexes and nonsustainedventricular tachycardia- Coronary atherosclerosis of unspecified type of vessel, [place] or graft07/30/2007 [place] Date: 1985. CABG Date: 1986 - left internal mammary artery toleft anterior descending, right internal mammary artery to right coronaryartery, and saphenous vein graft to diagonal artery. PCI Date: 05/23/02- stents in his ostial and proximal circumflex and in his obtuse marginalbranch PTCA Date: 05/23/02 - posterior lateral branch- History of ventricular tachycardia 04/05/2011 Dr [facility]- Pure hypercholesterolemia 03/22/2005- Unspecified cardiovascular disease 03/22/2005 Flight Follower--Dr. Nguyen SURGICAL HISTORYProcedure Laterality Date- ANGIOPLASTY 2001 08 angioplasty- COLONOSCOP W/ OR W/O BRSH SPEC 09/14/07 Very long/lax colon- PAST SURGICAL HISTORY OF 1986 triple bypass surgery heart at [place]- PAST SURGICAL HISTORY OF 2010 Squemous Cell- Face removed- PAST SURGICAL HISTORY OF 2015- Dr Mclaughlin BCC face- STENTS (SPECIFY) 2001, 2014 3 stentsFAMILY HISTORYProblem Relation Age of Onset- Heart Mother- Coronary Artery Disease Mother age 66- Heart Father- Coronary Artery Disease Father age 82- Aortic Aneurysm [OTHER] Father AAA-- from complications of surgery for repair- Diabetes Paternal Grandfather- None Sister- None Sister- Aortic aneurysm [OTHER] Paternal UncleSocial History:Social HistorySubstance Use Topics- Smoking status: Former Smoker Packs/day: 1.00 Years: 25.00 Types: Cigarettes Quit date: 07/23/1986- Smokeless tobacco: Never Used- Alcohol use 1.0 oz/week Comment: 4-5 beers a yearNo current facility-administered medications on file prior to encounter.Current Outpatient Prescriptions on File Prior to Encounter:Flaxseed Oil 1,000 mg cap Take 1 capsule by mouth once daily.metoprolol succinate ER (TOPROL XL) 25 mg 24 hr tablet Take 1 tablet bymouth once daily.atorvastatin (LIPITOR) 80 mg tablet Take 1 tablet by mouth once daily. Asdirectedezetimibe (ZETIA) 10 mg tablet Take 1 tablet by mouth once daily.coenzyme Q10 (CO Q-10) 100 mg cap Take 100 mg by mouth once daily.Lutein 6 mg ORAL Cap Take one(1) tablet daily.clopidogrel (PLAVIX) 75 mg tablet Take 1 tablet by mouth once daily.NIACIN SR 1,000 MG TAB Take one(1) tablet daily.ASPIRIN 81 MG ORAL TAB Take one (1) tablet daily .Current Facility-Administered Medications:proparacaine 0.5 % 1 Drop (ALCAINE) 1 Drop BOTH EYES q 5 MIN Watson RCostinNaCl 0.9% iv infusion 30 mL/hr INTRAVENOUS CONTINUOUS Watson R Costinlidocaine 1%-EPINEPHrine 1:100,000 10 mL injection 10 mL OTHER ONCE WatsonR Costinhyaluronidase 120 Units injection (AMPHADASE) 120 Units OTHER ONCE Watson RCostinAllergies: ALLERGIESNo Known AllergiesDOS EXAM: Adequate NPO status: YesAnesthetic risks, benefits, alternatives, personnel and consent discussed:YesPatient agrees to proceed: YesPrevious Anesthesia: No history of adverse event.Airway Assessment: MP 2; Neck ROM: Full ROM without neurologic symptoms;Airway Evaluation: No significant abnormalitiesSymptoms of Sleep Apnea: SnoringDentition: Teeth intactAdditional Physical Exam:Lungs: Patient health status unchanged since recent history and physical.See history and physical for exam findings.Cardiac: Patient health status unchanged since recent history andphysical. See history and physical for exam findings.Additional Pertinent Findings: N/ABlood Products: Not anticipated for this procedure.Anesthetic Plan: General, Standard ASA MonitorsPain Management Plan: Parenteral or OralASA Class: 3Other Medical Problems: NoneChronic Beta Corrine medication administered within 24 hours: N/AI have interviewed and examined the patient. I have reviewed the medicalrecord and/or the pre-anesthesia evaluation, pertinent labs, and testresults.Significant changes in the patient's condition since the History andPhysical, not otherwise documented in primary service progress notes: NoThis contains updated information obtained within 48 hours ofSurgery/Procedure.SIGNATURE: Dayanna Dykes MD PATIENT NAME: Marshal CarrilloDATE: February 28, 2018 : 10:00 AM CSN: [id number] [facility] OPERATIVE NOon 02-28-2018 OPERATIVE NO HNO ID: [id number] thor: Watson Fajardo CostinService: OphthalmologyAuthor Type: PhysicianType: Operative ReportFiled: 02/28/2018 11:37 AMNote Text:OPERATIVE/PROCEDURE REPORTLOG ID: [id number]/PROCEDURE DATE: 02/28/2018INCISION/PROCEDURE START TIME: 10:32 AMINCISION CLOSE/PROCEDURE END TIME: 11:25 AMSURGEON(S)/PROCEDURALIST(S) AND VITICULTURIST(S):Surgeon(s) and Role: * Watson Mclaughlin - Diego Additional StaffProcedure(s):1. Repair left lower eyelid defect 2 cm x 2 cm with adjacent tissuetransfer (bilobed flap); 2. Bonilla suture left eye?Anesthesia: General?Procedure Details:?After the risks, benefits, and alternatives of planned procedure wereexplained at length with the patient in layman's terms, informed consentwas obtained. The patient was identified by the surgeon, Watson Mclaughlin M.D. and the correct side was marked to indicate the correct procedure andsite. The patient was then taken to the operating room where a sign-in wasperformed in which the proper patient, proper procedure, proper proceduresite were all reconfirmed. General anesthesia was induced.?The left lower eyelid defect was anesthetized locally with 1% lidocainewith 1:100,000 epinephrine and hyaluronidase.?A bilobed flap was crafted using a 15-degree blade and Mirna scissorsand rotated into the wound bed. The flap was secured using 2 buried 4-0vicryl sutures and closed with a 6-0 Surgipro suture and a 5-0 Surgipro onthe nose.?A Bonilla suture was placed using a 6-0 prolene suture to maintain the lowereyelid position during the healing phase. The wounds were dressed withantibiotic ointment and a pressure patch was applied.The patient was then taken to the PACU in stable condition afterextubation having tolerated the procedure well. There were nocomplications to the above case.?Pre-Op/Pre-Procedure Diagnosis:?Cutaneous defect 2 cm x 2 cm left lowereyelid status post resection basal cell carcinoma status post Mohsmicrographic surgery?Post-Op/Post-Procedure? Diagnosis:?Same?Estimated Blood Loss:?<5 mls?Specimens:?None?Implantable Devices:?None?Drains:?None?Comp lications: None?I performed the entire procedure.SIGNATURE: Watson Mclaughlin MD PATIENT NAME: Marshal CarrilloDATE: February 28, 2018 : 11:31 AM PAGER/CONTACT #: [facility] OF [facility] 02-28-2018 PLAN OF CARE O ID: [id number] thor: Anahi Lazaro (Fig Washer)Service: (none)Author Type: TechnicianType: Plan of CareFiled: 02/28/2018 1:52 PMNote Text:MANUFACTURE SPECIALIST BEDSIDE DELIVERY SURVEY1. Patient to use [facility] Bedside Delivery - YES2. If fax, patient would like us to fax prescriptions to [facility]. Pharmacy: b. Location: c. Phone:3. Insurance card on file - YES4. Credit card for payment - NO [facility] PLAN OF CARE HNO ID: [id number] thor: Anahi Lazaro (beneSol)Service: (none)Author Type: TechnicianType: Plan of CareFiled: 02/28/2018 1:53 PMNote Text:Pharmacy Discharge Medication Service:This patient [facility]. Theprescriptions are currently being processed. A follow-up note will beentered once the prescriptions have been filled and delivered to thepatient. Please contact me with any questions or updates to the patient'sdischarge medications.Anahi Lazaro (beneSol)DCT Contact Info: [facility] PLAN OF CARE HNO ID: [id number] thor: Anahi Lazaro (beneSol)Service: (none)Author Type: TechnicianType: Plan of CareFiled: 02/28/2018 1:53 PMNote Text:PHARMACY BEDSIDE DELIVERY SERVICEPatient Name: Marshal CarrilloMRN: [id number] marked outpatient medications were Filled at: [facility] and delivered tothe patient's bedside to patientMedication ListSTART taking these medicationserythromycin ophthalmic ointmentApply 1/2 inch ribbon per application to left eye and nose AFTER PATCHREMOVED BY DOCTOR IN 1 WEEKX HYDROcodone-acetaminophen 5-325 mg per tabletCommonly known as: NORCOTake 1 tablet by mouth every 4 hours as needed (Moderate Pain (4-6),Severe Pain (7-10)) for up to 7 days.Anahi Lazaro (beneSol)PAGER: Timoteo 2017 1:53 PM [facility] PT EDon 02-28-2018 PT ED HNO ID: [id number] thor: Lorena MariaRn) Kevin, DUONGervice: NursingAuthor Type: Registered NurseType: Patient EducationFiled: 02/28/2018 12:19 PMNote Text:POST OP LEARNING RESPONSEINSTRUCTION PROVIDED TO: Patient and family memberMETHOD OF INSTRUCTION: Written instruction - handoutsVerbal instructionPATIENT / FAMILY RESPONSE: Verbalizes understanding of: [id number]-Naij ect actions to take to reduce post procedurecomplicationsFOLLOW-UP PLAN: Follow up phone call.SUPPLEMENTAL MATERIAL: NoneREFERRAL (RECOMMENDATION): NoneElectronically Signed By: Lorena Brown RN In Department: [facility] SURGERY Normal [facility] PT ED HNO ID: [id number] thor: Roxie (Rn) Compa Billy: (none)Author Type: Registered NurseType: Patient EducationFiled: 02/28/2018 10:04 AMNote Text:PRE OP LEARNING ASSESSMENTPROCEDURE/SURGERY: SURGERY: L lower eyelid MohsREADINESS TO LEARNCOGNITIVE ABILITY: Alert and orientedMOTIVATION TO LEARN: EagerFAMILY SUPPORT: High - Very involved in pt carePATIENT LEARNS BEST BY: Individual InstructionVerbal InstructionFACTORS AFFECTING LEARNING: NonePHYSICAL LIMITATIONS AFFECTING LEARNING: NoneElectronically Signed By: Roxie Billy RN In Department: [facility] NURSING PROGon 02-27-2018 NURSING PROG HNO ID: [id number] thor: Danyelle (Rn) Roxy: (none)Author Type: Registered NurseType: Nursing Progress NoteFiled: 02/27/2018 12:53 PMNote Text:PACC Nurse Progress NoteHistory AND Physical:PACC Visit Date: 4-39-09Dualoobj HANDP Date: 02-23-18ED visit Date: N/AOutside HANDP Scanned Date: N/ALabs Within Last 6 Months:CBC: Date 01-12-18 Platelet count 120; known thrombocytopenia and resultsconsistent with all previous resultsBMP/CMP: Date 01-12-18 WNLDermatopathology Report Date: 02-07-18; external and scanned into Epic [id number] Within Last 12 Months:N/ACardiac Testing:EKG in last 12 Months: Yes: Date: 06-26-17, Comment: Confirmed; see Epicfor resultsStress Test Date: 05-09-17, Comment: External and scanned into Epic [id number]; see [facility] for resultsBMI Percentile (PEDS):N/ARisk Assessment:N/AAnesthesia Review:N/ANarrative:N/APre-op Considerations:Per PACC visit note 02-23-18:CAD - With previous stent placement and CABG - The patient is currently onPlavix. Based on my discussion with cardiology stop [address] Hickman( per pt and and per Roosevelt in Dr Mclaughlin's office)Chart Check:Alistair Cuenca 2017 12:44 PM [facility] HOSP 02-22-2018 HOSP Patient:Roscoe Carrillo AMRN: Height:6' 0(1.829 m)Weight:189 lb 6.4 oz (85.911 kg)Outpatient Medications as of 02/28/18:Flaxseed Oil 1,000 mg capmetoprolol succinate ER (TOPROL XL) 25 mg 24 hr tabletatorvastatin (LIPITOR) 80 mg tabletclopidogrel (PLAVIX) 75 mg tabletezetimibe (ZETIA) 10 mg tablet coenzyme Q10 (CO Q-10) 100 mg capLutein 6 mg ORAL CapNIACIN SR 1,000 MG TABASPIRIN 81 MG ORAL TABAdmission/Clinic Administered Medications as of 02/28/18:NaCl 0.9% iv infusionlidocaine 1%-EPINEPHrine 1:100,000 10 mL injectionhyaluronidase 120 Units injection (AMPHADASE)Problem List:Hyperlipidemia [E78.5]Enthesopathy of ankle and tarsus, unspecified [M77.9]Coronary atherosclerosis [I25.10]Cardiac dysrhythmia, unspecified [I49.9]Essential hypertension [I10]Old myocardial infarction [I25.2]PVC (premature ventricular contraction) [I49.3]S/P drug eluting coronary stent placement [Z95.5]S/P CABG (coronary artery bypass graft) [Z95.1]Chronic idiopathic thrombocytopenia (HCC) [D69.3]BCC (basal cell carcinoma of skin) [C44.91]Basal cell carcinoma of left lower eyelid [C44.119]Allergies:No Known AllergiesDate Verified:02/28/18Lab ValuesNo results within the last 30 days for the following basenames: K,HCTProgress Notes ([facility] REJ):Rita Landers RACE CAR MECHANIC 02/28/2018 10:11 AM Sign at close encounterMOHS MICROGRAPHIC OPERATIVE REPORTSERVICE DATE: 02/28/2018SERVICE TIME: 7:24 AMLOCATION:[facility], [place] [address]CVJLINPEK PROVIDER:Watson Mclaughlin MD[address] [facility] [address]IYRUPCBUK START TIME: 0810PROCEDURE END TIME: 9:22 AMSURGEON: Dr. Homa GranadosFELLOW: WilkersonREGISTERED NURSE: Mo PRACTICAL NURSE: HeatherEDICVIDHYA VITICULTURIST: BarnoANTICOAGULANTS:PlavixIMPLA NTED DEVICES: NoneANTIBIOTIC PROPHYLAXIS: Not requiredTRANSPLANT PATIENT: NoPHOTOS: Photos takenVERIFICATION OF PROCEDURE:Procedure to be Performed: Mohs SurgeryPatient Verified By: Name and Date of BirthSite(s) Confirmed: Patient confirmed site from image in the EMR. Patient usedmirror(s) to identify site(s). Patient pointed to site(s). Patient identifiedsite in photo(s) taken during consult or preprocedure then signed photo. Patientverbalized agreement of surgical site(s).Site(s) Marked: Provider marking the site with patient involvement.Provider physically marking the site on or near incision site, with persistentmarker and remains visible once patient prepped.Relevant documentation, images, implants or special equipment present: YesSIGN IN COMMUNICATION: CompletedTime Out: Team Confirms the Correct Patient, Correct Procedure, Correct Site(s)and Site Marked, Correct Position (if applicable).Time: 0810Affirmation of Time Out: YesSign out Discussion: CompletedLESION #1Preoperative Diagnosis: BCC with nodular features, peripherally transected ofthe left lower eyelidTumor Type: PrimaryPath Report Available at Bedside: Outside pathology report # [id number]([facility])Pre-op Size: 1.1 cm - 2 cm, (1.3cm X 0.8cm)Lymphadenopathy: NoneIndication for Mohs: Anatomic Location where lesion is prone to recur, Type oftumor and Ill-defined bordersLocation: Area H: (Mask Areas of the Face - Includes Central Face, Eyelids,Inner/Outer [place], Eyebrows, Nose, Chin, Lips, Ears, Periauricular Skin andTemple)Preparation: Povidone-iodineLAYER AThe patient was positioned, prepped with alcohol and draped in the usual manner.Anesthesia was obtained with local infiltration. The clinically apparent tumorwas then debulked with a curette. A 1-2 mm rim of tissue was markedcircumferentially around the defect. The area thus outlined was excised deep tothe subcutis. Hemostasis was achieved with electrocautery. The specimen wasoriented, subdivided into 2 sections, chromacoded and submitted for horizontalfrozen sections. The patient tolerated the procedure well and no complicationswere noted.Upon review of the horizontal frozen sections for Layer A, no residual tumor wasidentified in pieces A1 and A2.CLOSURETo be performed by Dr Arnoldo rogers in the ASC today.Diagnosis: Surgical defect secondary to Mohs micrographic surgery on a Primarytumor type from left lower eyelid (location of tumor).Post-op Defect Size: 1.9 x 1.3cmFinal Size: Area 1.9 x 1.3 [id number] ANESTHETIC: 3cc 1% Lidocaine HCl with Epinephrine 1:100,000ESTIMATED BLOOD LOSS: Less Than Minimal Unless Noted Here.COMPLICATIONS: None, patient tolerated procedure well.TOTAL OPERATIVE TIME: 1 Hour 12 MinutesThe primary surgeon/proceduralist performed the procedure with assistance.I performed the procedure with assistance.I have personally reviewed the specimens and worked as the pathologist.POST OP MEDS: Tylenol 1-2 tabs every 4-6 hours as needed for pain reliefPOST OP CARE: eye gauze pad and a band aidMOHS POST OP INSTRUCTIONS GIVEN WITH VERBAL UNDERSTANDING: to be given by Lolly post repairPATIENT DISCHARGED TO LEASING MACHINE TENDER/NAME: wifeFOLLOW UP: Referred to Oculoplastic Surgery for closure of defect per discussionduring consult visit.See Dermatology yearly or as needed for FSE'sPRNThe documentation for this note was completed by Paris Willoughby Ma acting as scribefor Homa Lozano MD. February 28, 2018 9:25 AM.I agree with the Operative Report independently gathered by the clinical supportstaff and the remaining scribed note accurately describes my personal service tothe patient.SIGNATURE: Homa Lozano MD PATIENT NAME: Marshal CarrilloDATE: February 28, 2018 : 7:24 AM PAGER/CONTACT #:Previous VersionProgress Notes (CARD INTERVENTION MAIN):Theresa Calvertthanhakira Coord 02/22/2018 9:09 AM SignedAnalisa [facility] [phone] ext [phone] scheduled for surgery on 02/28 need to know by today if patient can stopPlavix/aspirinShe states that a fax was sent earlier this weekSlilagloria [facility] 02/26/2018 8:41 AM SignedRec'd fax request concerning the Plavix / ASA for MOHS repair OS lower eyelid.Faxed back reply on 02/22/18 with the following directives:OK to d/c Plavix 5 days prior to procedure and resume when physician feels itOK.Patient MUST remain on ASA without interruption.(also discussed with office staff on telephone) [facility] Office Visiton 05-01-2017 Dietary management education, guidance, and counseling (procedure) yes Invalid Interpretation Code [employer] Work Phone: Documentation of current medications (procedure) Done Invalid Interpretation Code [employer] Work Phone: Fall risk assessment No Invalid Interpretation Code [employer] Work Phone: [phone] Protein mass conc Done Invalid Interpretation Code [employer] Work Phone: Tobacco smoking status NHIS Former smoker Invalid Interpretation Code [employer] Work Phone: [phone] Tobacco use CPHS Former smoker Invalid Interpretation Code [employer] Work Phone: Lab Report: Lipid Profileon 04-22-2017 Cholesterol 144 mg/dL Invalid Interpretation Code 200 [employer] Work Phone: [phone] HDL Cholesterol 54 mg/dL Invalid Interpretation Code [employer] Work Phone: [phone] LDL Cholesterol 67 mg/dL Invalid Interpretation Code 0-130 [employer] Work Phone: Triglyceride 114 mg/dL Invalid Interpretation Code [employer] Work Phone: very low density lipoproteins 23 mg/dL Invalid Interpretation Code 5-40 [employer] Work Phone: [phone] Lab Report: Liver Profileon 04-22-2017 Alanine aminotransferase (ALT) 25 U/L Invalid Interpretation Code 12-78 [employer] Work Phone: [phone] Albumin 3.6 g/dL Invalid Interpretation Code 3.4-5.0 [employer] Phone: [phone] Alkaline phosphatase (ALP) 60 U/L Invalid Interpretation Code 45-117 [employer] Work Phone: [phone] ALP enzyme act/vol (Bld) 60 U/L Invalid Interpretation Code 45-117 [employer] Work Phone: [phone] Aspartate aminotransferase (AST) 30 U/L Invalid Interpretation Code 15-37 [employer] Phone: [phone] Bilirubin (direct) 0.27 mg/dL Invalid Interpretation Code 0.00-0.30 [employer] Phone: [phone] Bilirubin (total) 1.00 mg/dL Invalid Interpretation Code 0.20-1.00 [employer] Phone: [phone] Globulin 3.2 g/dL Invalid Interpretation Code 2.3-3.5 [employer] Phone: [phone] Globulin mass conc (S) 3.2 g/dL 2.3-3.5 [employer] Phone: [phone] Protein 6.8 g/dL Invalid Interpretation Code 6.4-8.2 [employer] Phone: [phone] Office Visiton 11-07-2016 Dietary management education, guidance, and counseling (procedure) yes Invalid Interpretation Code [employer] Phone: [phone] Documentation of current medications (procedure) Done Invalid Interpretation Code [employer] Phone: [phone] Clinical Lists Update: Prelo electronic service technician 02-09-2016 Calcium 8.6 mg/dL Invalid Interpretation Code [employer] Phone: [phone] Chloride 103 mmol/L Invalid Interpretation Code [employer] Phone: [phone] CO2 26 mmol/L Invalid Interpretation Code [employer] Work Phone: [phone] CO2 ppres (BldV) 26 mmol/L Invalid Interpretation Code [employer] Work Phone: [phone] Creatinine 0.96 mg/dL Invalid Interpretation Code [employer] Work Phone: [phone] Glucose 84 mg/dL Invalid Interpretation Code [employer] Work Phone: [phone] Glucose mass conc 84 mg/dL Invalid Interpretation Code [employer] Work Phone: [phone] Hematocrit (HCT) 43.6 % Invalid Interpretation Code [employer] Work Phone: [phone] Hematocrit Volume Fraction (Bld) 43.6 % [employer] Work Phone: [phone] Hemoglobin (HGB) 14.3 g/dL Invalid Interpretation Code [employer] Work Phone: [phone] Platelets 125 10*3/mm3 Invalid Interpretation Code [employer] Work Phone: [phone] Platelets #/vol (Bld) 125 10*3/mm3 [employer] Work Phone: [phone] Potassium 4.1 mmol/L Invalid Interpretation Code [employer] Work Phone: [phone] Sodium 141 mmol/L Invalid Interpretation Code [employer] Work Phone: [phone] Urea nitrogen 16 mg/dL Invalid Interpretation Code [employer] Work Phone: [phone] WBC #/vol (Bld) 5.3 10*3/uL [employer] Work Phone: [phone] WBC (Leukocytes) 5.3 10*3/uL Invalid Interpretation Code [employer] Work Phone: [phone] Office Visiton 11-09-2015 Fall risk assessment 26/26 Invalid Interpretation Code [employer] Phone: [phone] Clinical Lists Updateon 10-13 Left ventricular Ejection fraction 55 % Invalid Interpretation Code [employer] Work Phone: [phone] Office Visiton 04-27-2015 Tobacco use CPHS Former smoker Invalid Interpretation Code [employer] Phone: [phone] Office Visit: [facility] 10-21-19 15 cardiac risk group C Invalid Interpretation Code [employer] Work Phone: [phone] General cardiovascular disease 10Y risk [#] [place] no N/A Invalid Interpretation Code [employer] Work Phone: [phone] Tobacco smoking status NHIS Never Invalid Interpretation Code [employer] Work Phone: [phone] Replaced Document: Sandi Dawnon 10-20-2014 BUN (urea nitrogen) Sinus Rhythm - occas ional ectopic ventricular beat -Right bundle branch block. ABNORMAL Invalid Interpretation Code [employer] Work Phone: [phone] EKG QRS axis -24 deg Invalid Interpretation Code [employer] Work Phone: [phone] GE use only - for [employer] import when terms are not otherwise specified 457 ms Invalid Interpretation Code [employer] Work Phone: P Vernon 50 deg Invalid Interpretation Code [employer] Work Phone: [phone] P wave axis, electrocardiogram 50 deg Invalid Interpretation Code [employer] Work Phone: MA Interval 174 ms Invalid Interpretation Code [employer] Work Phone: MA interval, electrocardiogram 174 ms Invalid Interpretation Code [employer] Work Phone: [phone] Pulse (Heart Rate) 70 /min Invalid Interpretation Code [employer] Work Phone: QRS axis, electrocardiogram -24 deg Invalid Interpretation Code [employer] Work Phone: QRS Duration 152 ms Invalid Interpretation Code [employer] Work Phone: QRS duration, electrocardiogram 152 ms Invalid Interpretation Code [employer] Work Phone: QT Interval new path ms Invalid Interpretation Code [employer] Work Phone: QT interval, electrocardiogram new path ms Invalid Interpretation Code [employer] Work Phone: QTc Nelson 457 ms Invalid Interpretation Code [employer] Work Phone: T [place] 8 deg Invalid Interpretation Code [employer] Work Phone: T wave axis, electrocardiogram 8 deg Invalid Interpretation Code [employer] Work Phone: [phone] Urea nitrogen mass conc Sinus Rhythm - occasional ectopic ventricular beat -Right bundle branch block. ABNORMAL [employer] Work Phone: [phone] External Other: Preferred Me thod of Contacton 06-18-2014 methcontact secmsg Invalid Interpretation Code [employer] Work Phone: [phone] Patient's prefered method of contact secmsg Invalid Interpretation Code [employer] Work Phone: [phone] Office Visiton 04-29-2014 Anion gap 10 mmol/L Invalid Interpretation Code [employer] Work Phone: [phone] Anion gap 4 molar conc 10 Invalid Interpretation Code [employer] Work Phone: [phone] Anion gap molar conc 10 mmol/L [employer] Work Phone: [phone] Glucose 82 mg/dL Invalid Interpretation Code [employer] Work Phone: [phone] Glucose fasting mass conc 82 mg/dL [employer] Work Phone: [phone] Glucose fasting mass conc (BldV) 82 mg/dL Invalid Interpretation Code [employer] Work Phone: [phone] Clinical Lists 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: 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-2014 Erythrocytes (RBC) 4.77 10*6/uL Invalid Interpretation Code [employer] Work Phone: [phone] MCH 26.6 pg Low [employer] Work Phone: [phone] MCH Entitic mass (RBC) 26.6 pg Low [employer] Work Phone: [phone] MCV 79.0 fL Low [employer] Work Phone: [phone] MCV Entitic volume (RBC) 79.0 fL Low [employer] Work Phone: [phone] RBC #/vol (Bld) 4.77 10*6/uL [employer] Work Phone: [phone] Office Visit: [facility] 11-27-19 14 Triglyceride 118 mg/dL Invalid Interpretation Code [employer] Work Phone: [phone] Office Visiton 05-04-2013 MCHC 33 g/dL Invalid Interpretation Code [employer] Work Phone: [phone] MCHC mass conc (RBC) 33 g/dL [employer] Work Phone: [phone] Replaced Document: Sandi Coyle 05-14-2012 Pulse (Heart Rate) 443 ms Invalid Interpretation Code [employer] Work Phone: [phone] Lab Report: Mary Jo @ CCFon Globulin 2.4 g/dL Invalid Interpretation Code [employer] Work Phone: [phone] Globulin mass conc (S) 2.4 g/dL [employer] Work Phone: [phone] Erythrocyte distribution width Ratio (RBC) 13.0 % [employer] Work Phone: [phone] MCHC 34.2 % Invalid Interpretation Code [employer] Work Phone: [phone] MCHC mass conc (RBC) 34.2 % [employer] Work Phone: [phone] Platelet mean volume Entitic volume (Bld) 12.0 fL [employer] Work Phone: [phone] PMV by Loida 12.0 fL Invalid Interpretation Code [employer] Work Phone: [phone] RDW-CA 13.0 % Invalid Interpretation Code [employer] Work Phone: [phone] Vital Signs Date Time Vital Sign Value Performing Clinician Facility 01-20-2025 09:30-0400 Body mass index (BMI) [Ratio] 22.42 kg/m2 Amilcar Tamayo MD Work Phone: [facility] 01-20-2025 09:30-0400 Body weight 75 kg Amilcar Tamayo MD Work Phone: [facility] 01-20-2025 09:30-0400 Diastolic blood pressure 65 mm[Hg] Amilcar Tamayo MD Work Phone: [facility] 01-20-2025 09:30-0400 Heart rate 59 /min Amilcar Tamayo MD Work Phone: [facility] 01-20-2025 09:30-0400 Respiratory rate 16 /min Amilcar Tamayo MD Work Phone: [facility] 01-20-2025 09:30-0400 Systolic blood pressure 115 mm[Hg] Amilcar Tamayo MD Work Phone: [facility] 01-13-2025 09:26-0400 Body mass index (BMI) [Ratio] 23.06 kg/m2 Pulm Wstr Work Phone: [facility] 01-13-2025 09:26-0400 Body weight 77.11 kg Pulm Wstr Work Phone: [facility] 08-28-2024 09:24-0500 Body mass index (BMI) [Ratio] 23.87 kg/m2 Homa Click TAPER OPERATOR.LARGE ANIMAL VETERINARIAN Work Phone: [facility] 08-28-2024 09:24-0500 Body weight 79.83 kg Homa Click TAPER OPERATOR.LARGE ANIMAL VETERINARIAN Work Phone: [facility] 08-28-2024 09:24-0500 Heart rate 56 /min Homa Click TAPER OPERATOR.LARGE ANIMAL VETERINARIAN Work Phone: [facility] 08-28-2024 09:24-0500 SaO2% (BldA) [Mass fraction] 92 % Homa Click TAPER OPERATOR.LARGE ANIMAL VETERINARIAN Work Phone: [facility] 07-08-2024 15:53-0500 Body height 182.9 cm Branden Hickman MD Work Phone: [facility] 07-08-2024 15:53-0500 Body mass index (BMI) [Ratio] 23.87 kg/m2 Branden Hickman MD Work Phone: [facility] 07-08-2024 15:53-0500 Body weight 79.83 kg Branden Hickman MD Work Phone: [facility] 07-08-2024 15:53-0500 Diastolic blood pressure 73 mm[Hg] Branden Hickman MD Work Phone: [facility] 07-08-2024 15:53-0500 Heart rate 74 /min Branden Hickman MD Work Phone: [facility] 07-08-2024 15:53-0500 Respiratory rate 18 /min Branden Hickmna MD Work Phone: [facility] 07-08-2024 15:53-0500 SaO2% (BldA) [Mass fraction] 99 % Branden Hickman MD Work Phone: [facility] Comment on above: RA 07-08-2024 15:53-0500 Systolic blood pressure 153 mm[Hg] Branden Hickman MD Work Phone: [facility] 07-01-2024 11:15-0500 Diastolic blood pressure 54 mm[Hg] Talib Shawn TAPER OPERATOR.LARGE ANIMAL VETERINARIAN Work Phone: [facility] 07-01-2024 11:15-0500 Systolic blood pressure 138 mm[Hg] Talib Shawn TAPER OPERATOR.LARGE ANIMAL VETERINARIAN Work Phone: [facility] 07-01-2024 11:14-0500 Body mass index (BMI) [Ratio] 24.23 kg/m2 Talib Shawn TAPER OPERATOR.LARGE ANIMAL VETERINARIAN Work Phone: [facility] 07-01-2024 11:14-0500 Body weight 79.9 kg Talib Shawn TAPER OPERATOR.LARGE ANIMAL VETERINARIAN Work Phone: [facility] 07-01-2024 11:14-0500 Heart rate 59 /min Talib Shawn TAPER OPERATOR.LARGE ANIMAL VETERINARIAN Work Phone: [facility] 07-01-2024 11:14-0500 SaO2% (BldA) [Mass fraction] 93 % Talib Shawn TAPER OPERATOR.LARGE ANIMAL VETERINARIAN Work Phone: [facility] 05-28-2024 09:53-0400 Body mass index (BMI) [Ratio] 24.23 kg/m2 Homa Click TAPER OPERATOR.LARGE ANIMAL VETERINARIAN Work Phone: [facility] 05-28-2024 09:53-0400 Body temperature 97.3 [degF] Homa Click TAPER OPERATOR.LARGE ANIMAL VETERINARIAN Work Phone: [facility] 05-28-2024 09:53-0400 Body weight 79.92 kg Homa Click TAPER OPERATOR.LARGE ANIMAL VETERINARIAN Work Phone: [facility] 05-28-2024 09:53-0400 Diastolic blood pressure 65 mm[Hg] Homa Click TAPER OPERATOR.LARGE ANIMAL VETERINARIAN Work Phone: [facility] 05-28-2024 09:53-0400 Heart rate 70 /min Homa Click TAPER OPERATOR.LARGE ANIMAL VETERINARIAN Work Phone: [facility] 05-28-2024 09:53-0400 SaO2% (BldA) [Mass fraction] 99 % Homa Click TAPER OPERATOR.LARGE ANIMAL VETERINARIAN Work Phone: [facility] 05-28-2024 09:53-0400 Systolic blood pressure 120 mm[Hg] Homa Click TAPER OPERATOR.LARGE ANIMAL VETERINARIAN Work Phone: [facility] 05-16-2024 09:36-0400 Body mass index (BMI) [Ratio] 23.93 kg/m2 Pulm Wstr Work Phone: [facility] 05-16-2024 09:36-0400 Body weight 78.93 kg Pulm Wstr Work Phone: [facility] 04-30-2024 12:58-0400 Body height 181.6 cm Pulm Wstr Work Phone: [facility] 04-30-2024 12:58-0400 Body mass index (BMI) [Ratio] 23.93 kg/m2 Pulm Wstr Work Phone: [facility] 04-30-2024 12:58-0400 Body weight 78.93 kg Pulm Wstr Work Phone: [facility] 04-30-2024 12:58-0400 Heart rate 76 /min Pulm Wstr Work Phone: [facility] 04-30-2024 12:58-0400 Respiratory rate 16 /min Pulm Wstr Work Phone: [facility] 04-30-2024 12:58-0400 SaO2% (BldA) [Mass fraction] 96 % [facility]m [facility] Work Phone: [facility] 01-11-2024 11:07-0400 Body height 181.6 cm Pulm Wstr Work Phone: [facility] 01-11-2024 11:07-0400 Body mass index (BMI) [Ratio] 23.93 kg/m2 Pulm [facility]str Work Phone: [facility] 01-11-2024 11:07-0400 Body weight 78.93 kg Pulm Wstr Work Phone: [facility] 01-11-2024 11:07-0400 Heart rate 74 /min Pulm Wstr Work Phone: [facility] 01-11-2024 11:07-0400 Respiratory rate 14 /min Pulm Wstr Work Phone: [facility] 01-11-2024 11:07-0400 SaO2% (BldA) [Mass fraction] 98 % Pulm [facility]str Work Phone: [facility] 01-09-2024 10:27-0400 Body mass index (BMI) [Ratio] 23.73 kg/m2 Talib Shawn TAPER OPERATOR.LARGE ANIMAL VETERINARIAN Work Phone: [facility] 01-09-2024 10:27-0400 Body weight 79.38 kg Talib Shawn TAPER OPERATOR.LARGE ANIMAL VETERINARIAN Work Phone: [facility] 01-09-2024 10:27-0400 Diastolic blood pressure 68 mm[Hg] Talib Shawn TAPER OPERATOR.LARGE ANIMAL VETERINARIAN Work Phone: [facility] 01-09-2024 10:27-0400 Heart rate 83 /min Talib Shawn TAPER OPERATOR.LARGE ANIMAL VETERINARIAN Work Phone: [facility] 01-09-2024 10:27-0400 SaO2% (BldA) [Mass fraction] 98 % Talib Shawn TAPER OPERATOR.LARGE ANIMAL VETERINARIAN Work Phone: [facility] 01-09-2024 10:27-0400 Systolic blood pressure 110 mm[Hg] Talib Shawn TAPER OPERATOR.LARGE ANIMAL VETERINARIAN Work Phone: [facility] 09-05-2023 09:35-0500 Heart rate 68 /min [facility] 09-05-2023 09:35-0500 Respiratory rate 14 /min [facility] 09-05-2023 09:35-0500 SaO2% (BldA) [Mass fraction] 97 % [facility] 09-05-2023 09:09-0500 Body height 182.88 cm [facility] 09-05-2023 09:09-0500 Body mass index (BMI) [Ratio] 24.5 kg/m2 [facility] 09-05-2023 09:09-0500 Body temperature 97.9 [degF] [facility] 09-05-2023 09:09-0500 Body weight 82 kg [facility] 09-05-2023 09:09-0500 Diastolic blood pressure 69 mm[Hg] [facility] 09-05-2023 09:09-0500 Systolic blood pressure 133 mm[Hg] [facility] 12-06-2022 13:48-0400 Body weight 79.38 kg Brenda Santizo TAPER OPERATOR.ELECTROMECHANISMS DESIGN DRAFTER Work Phone: [facility] 12-06-2022 13:48-0400 Diastolic blood pressure 70 mm[Hg] Brenda Santizo TAPER OPERATOR.ELECTROMECHANISMS DESIGN DRAFTER Work Phone: [facility] 12-06-2022 13:48-0400 Heart rate 62 /min Brenda Santizo TAPER OPERATOR.ELECTROMECHANISMS DESIGN DRAFTER Work Phone: [facility] 12-06-2022 13:48-0400 Respiratory rate 16 /min Brenda Santizo TAPER OPERATOR.ELECTROMECHANISMS DESIGN DRAFTER Work Phone: [facility] 12-06-2022 13:48-0400 SaO2% (BldA) [Mass fraction] 97 % Brenda Santizo TAPER OPERATOR.ELECTROMECHANISMS DESIGN DRAFTER Work Phone: [facility] 12-06-2022 13:48-0400 Systolic blood pressure 124 mm[Hg] Brenda Santizo TAPER OPERATOR.ELECTROMECHANISMS DESIGN DRAFTER Work Phone: [facility] 06-13-2022 10:56-0400 Body height 182.9 cm Branden Hickman MD Work Phone: [facility] 06-13-2022 10:56-0400 Body weight 76.93 kg Branden Hickman MD Work Phone: [facility] 06-13-2022 10:56-0400 Diastolic blood pressure 74 mm[Hg] Branden Hickman MD Work Phone: [facility] 06-13-2022 10:56-0400 Heart rate 72 /min Branden Hickman MD Work Phone: [facility] 06-13-2022 10:56-0400 SaO2% (BldA) [Mass fraction] 98 % Branden Hickman MD Work Phone: [facility] 06-13-2022 10:56-0400 Systolic blood pressure 121 mm[Hg] Branden Hickman MD Work Phone: [facility] 05-03-2022 13:46-0400 Body height 182.9 cm Brenda Santizo TAPER OPERATOR.ELECTROMECHANISMS DESIGN DRAFTER Work Phone: [facility] 05-03-2022 13:46-0400 Body weight 76.66 kg Brenda Santizo TAPER OPERATOR.ELECTROMECHANISMS DESIGN DRAFTER Work Phone: [facility] 05-03-2022 13:46-0400 Diastolic blood pressure 80 mm[Hg] Brenda Santizo TAPER OPERATOR.ELECTROMECHANISMS DESIGN DRAFTER Work Phone: [facility] 05-03-2022 13:46-0400 Heart rate 73 /min Brenda Santizo TAPER OPERATOR.ELECTROMECHANISMS DESIGN DRAFTER Work Phone: [facility] 05-03-2022 13:46-0400 Respiratory rate 16 /min Brenda Santizo TAPER OPERATOR.ELECTROMECHANISMS DESIGN DRAFTER Work Phone: [facility] 05-03-2022 13:46-0400 SaO2% (BldA) [Mass fraction] 98 % Brenda Santizo TAPER OPERATOR.ELECTROMECHANISMS DESIGN DRAFTER Work Phone: [facility] 05-03-2022 13:46-0400 Systolic blood pressure 118 mm[Hg] Brenda Santizo TAPER OPERATOR.ELECTROMECHANISMS DESIGN DRAFTER Work Phone: [facility] 08-13-2021 07:59-0500 Body temperature 97.5 [degF] Dr. Amilacr Tamayo Work Phone: [facility] Work Phone: 08-13-2021 07:59-0500 Diastolic blood pressure 60 mm[Hg] Dr. Amilcar Tamayo Work Phone: [facility] Work Phone: 08-13-2021 07:59-0500 Heart rate 86 /min Dr. Amilcar Tamayo Work Phone: [facility] Work Phone: 08-13-2021 07:59-0500 Respiratory rate 15 /min Dr. Amilcar Tamayo Work Phone: [facility] Work Phone: 08-13-2021 07:59-0500 SaO2% (BldA) [Mass fraction] 96 % Dr. Amilcar Tamayo Work Phone: [facility] Work Phone: 08-13-2021 07:59-0500 Systolic blood pressure 104 mm[Hg] Dr. Amilcar Tamayo Work Phone: [facility] Work Phone: 07-19-2021 12:41-0500 Body height 182.[address] Amilcar Tamayo Work Phone: [facility] Work Phone: 07-19-2021 12:41-0500 Body weight 78.[address] Amilcar Tamayo Work Phone: [facility] Work Phone: 07-19-2021 12:41-0500 Diastolic blood pressure 64 mm[Hg] Dr. Amilcar Tamayo Work Phone: [facility] Work Phone: 07-19-2021 12:41-0500 Heart rate 68 /min Dr. Amilcar Tamayo Work Phone: [facility] Work Phone: 07-19-2021 12:41-0500 Respiratory rate 18 /min Dr. Amilcar Tamayo Work Phone: [facility] Work Phone: 07-19-2021 12:41-0500 Systolic blood pressure 130 mm[Hg] Dr. Amilcar Tamayo Work Phone: [facility] Work Phone: 06-22-2020 12:03-0500 Body mass index (BMI) [Ratio] 23 kg/m2 Dr. Amilcar Tamayo Work Phone: [facility] Work Phone: 05-01-2017 13:34-0400 BMI (Body Mass Index) 26.04 kg/m2 Rosalia Pittman [facility] Work Phone: 05-01-2017 13:34-0400 BP Diastolic 62 mm[Hg] [facility] Work Phone: 05-01-2017 13:34-0400 BP Systolic 112 mm[Hg] Rosalia Pittman [facility] Work Phone: 05-01-2017 13:34-0400 Height 182.88 cm Rosalia Pittman [facility] Work Phone: 05-01-2017 13:34-0400 Pulse (Heart Rate) 64 /min [facility] Work Phone: 05-01-2017 13:34-0400 Respiratory Rate 16 /min Rosalia Pittman [facility] Work Phone: 05-01-2017 13:34-0400 Weight 87.09 kg Rosalia Pittman [facility] Work Phone: 11-07-2016 13:06-0400 BMI (Body Mass Index) 26.04 kg/m2 Lev Latif MD [facility] Work Phone: 11-07-2016 13:06-0400 BP Diastolic 72 mm[Hg] Lev Latif MD [facility] Work Phone: 11-07-2016 13:06-0400 BP Systolic 140 mm[Hg] Lev Latif MD [facility] Work Phone: 11-07-2016 13:06-0400 Pulse (Heart Rate) 68 /min [facility] Work Phone: 11-07-2016 13:06-0400 Respiratory Rate 16 /min Lev Latif MD [facility] Work Phone: 11-07-2016 13:06-0400 Weight 87.09 kg Lev Latif MD [facility] Work Phone: 04-25-2016 13:25-0400 BSA (Body Surface Area) 2.08 m2 Lev Latif MD [facility] Work Phone: 10-20-2014 13:10-0400 Heart rate 70 /min Rosalia Pittman [facility] Work Phone: 05-14-2012 13:27-0400 Heart rate 443 ms Rosalia Pittman [facility] Work Phone: 11-07-2011 13:49-0400 Height 182.88 cm Lev Latif MD [facility] Work Phone: Encounters Encounter Date Encounter Type Care Provider Facility Start: 04-02-2025 End: 04-02-2025 ambulatory Amilcar Tamayo MD Work Phone: [employer] Comment on above: [facility] Coordin ator- Other (Chart Review ) Start: 04-02-2025 End: 04-02-2025 E-mail encounter from caregiver Amilcar Tamayo MD Work Phone: [employer] Start: 01-20-2025 End: 01-20-2025 ambulatory AMILCAR TAMAYO Facility:[facility] Start: 01-20-2025 End: 01-20-2025 Office outpatient visit 25 minutes Amilcar Tamayo MD Work Phone: [facility] Comment on above: Nausea (Primary Dx); Gastroesophageal reflux disease without esophagitis; Essential hypertension; History of bleeding ulcers; Idiopathic pulmonary fibrosis (HCC); Encounter for long-term current use of medication; Encounter for immunization; Chronic idiopathic thrombocytopenia (HCC) Start: 01-20-2025 End: 01-20-2025 ambulatory [facility] Facility:[facility] Start: 01-13-2025 End: 01-13-2025 Patient encounter procedure [facility] Work Phone: [facility] Start: 01-13-2025 End: 01-13-2025 ambulatory [facility] Work Phone: [facility] Comment on above: Spirometry Start: 12-31-2024 End: 12-31-2024 ambulatory [facility] Facility:[facility] Start: 12-16-2024 End: 12-17-2024 Refill Homa Coleman APRN.JULIA Work Phone: Pulmonary Medicine Comment on above: Refill Request Start: 10-30-2024 End: 12-30-2024 Follow-up encounter Homa Coleman APRN.JULIA Work Phone: [facility] Start: 10-29-2024 End: 10-29-2024 ambulatory [facility] Facility:[facility] Start: 09-17-2024 End: 09-17-2024 Refill Talib Jung APRN.LARGE ANIMAL VETERINARIAN Work Phone: [facility] [place] Comment on above: Refill Request Start: 08-28-2024 End: 08-28-2024 [facility] Facility:[facility] Start: 08-28-2024 End: 08-28-2024 Office outpatient visit 15 minutes Homa Coleman APRN.LARGE ANIMAL VETERINARIAN Work Phone: Pulmonary Medicine Comment on above: IPF (idiopathic pulm onary fibrosis) ([facility]) (Primary Dx); Allergic rhinitis, unspecified seasonality, unspecified trigger; Rhinorrhea Start: 07-08-2024 End: 07-08-2024 ambulatory [facility] Facility:[facility] Start: 07-08-2024 End: 07-08-2024 Patient encounter procedure Branden Hickman MD Work Phone: Cardiology Comment on above: Atherosclerosis of n ative coronary artery of [place] heart without angina pectoris (Primary Dx); S/P CABG (coronary artery bypass graft); S/P drug eluting coronary stent placement; Essential hypertension; Mixed hyperlipidemia; Family history of aortic aneurysm Start: 07-08-2024 End: 07-08-2024 ambulatory [facility] Facility:[facility] Start: 07-05-2024 End: 07-05-2024 Orders Only Branden Hickman MD Work Phone: Cardiology Comment on above: Atherosclerosis of n ative coronary artery of [place] heart without angina pectoris (Primary Dx); S/P CABG (coronary artery bypass graft); Essential hypertension; Family history of aortic aneurysm Start: 07-01-2024 End: 07-01-2024 Patient encounter procedure Talib Jung APRN.LARGE ANIMAL VETERINARIAN Work Phone: [facility] Comment on above: Idiopathic pulmonary fibrosis (HCC) (Primary Dx); Atherosclerosis 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 pectoris; Essential hypertension; Mixed hyperlipidemia; Chronic idiopathic thrombocytopenia (HCC); Screening for depression; Encounter for screening examination for other mental health and behavioral disorders; Encounter for immunization Start: 07-01-2024 End: 07-01-2024 ambulatory [facility] Facility:[facility] Start: 06-11-2024 End: 06-11-2024 Orders Only Homa Coleman APRN.LARGE ANIMAL VETERINARIAN Work Phone: Pulmonary Medicine Comment on above: IPF (idiopathic pulm onary fibrosis) (HCC) Start: 05-29-2024 End: 05-29-2024 [facility] Facility:[facility] Start: 05-28-2024 End: 05-28-2024 [facility] Facility:[facility] Start: 05-28-2024 End: 05-28-2024 Office outpatient visit 25 minutes Homa Coleman APRN.JULIA Work Phone: Pulmonary Medicine Comment on above: IPF (idiopathic pulm onary fibrosis) (HCC) (Primary Dx); Lung nodule Start: 05-16-2024 End: 05-16-2024 ambulatory [facility] Work Phone: [facility] Comment on above: Spirometry Start: 05-16-2024 End: 05-16-2024 Patient encounter procedure [facility] Work Phone: [facility] Start: 05-16-2024 End: 05-16-2024 Subsequent hospital visit by physician [facility] Work Phone: Cat Scan Comment on above: Interstitial pulmona ry disease (HCC) [J84.9] Start: 04-30-2024 End: 04-30-2024 Patient encounter procedure [facility] Work Phone: [facility] Comment on above: Interstitial pulmona ry disease (HCC) (Primary Dx); Former smoker Start: 04-30-2024 End: 04-30-2024 ambulatory [facility] Work Phone: [facility] Comment on above: Spirometry Start: 04-30-2024 End: 04-30-2024 Subsequent hospital visit by physician K[facility] Work Phone: Radiology Comment on above: Chronic obstructive pulmonary disease, unspecified COPD type (HCC) [J44.9] Start: 04-25-2024 End: 04-25-2024 Orders Only Branden Hickman MD Work Phone: Cardiology Comment on above: SOB (shortness of br eath) (Primary Dx) Start: 01-11-2024 End: 01-11-2024 ambulatory [facility] Work Phone: [facility] Comment on above: Spirometry Start: 01-11-2024 End: 01-11-2024 Patient encounter procedure [facility] Work Phone: [facility] Start: 01-09-2024 End: 01-09-2024 Subsequent hospital visit by physician Krystle [facility] Work Phone: Radiology Comment on above: Chronic obstructive pulmonary disease, unspecified COPD type (HCC) [J44.9] Start: 01-09-2024 End: 01-09-2024 Patient encounter procedure Talib Jung APRN.CNP Work Phone: [facility] Comment on above: Chronic obstructive pulmonary disease, unspecified COPD type (HCC) (Primary Dx); Essential hypertension; Atherosclerosis 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 pectoris; Mixed hyperlipidemia Start: 10-12-2023 End: 10-12-2023 ambulatory Amilcar D [place] Facility:[facility] Start: 09-14-2023 End: 09-14-2023 ambulatory Amilcar D [place] Facility:[facility] Start: 09-07-2023 End: 09-07-2023 ambulatory Amilcar D [place] Facility:[facility] Start: 09-05-2023 End: 09-05-2023 Emergency department patient visit [facility] Facility:[facility] Start: 09-05-2023 End: 09-05-2023 Emergency department patient visit [facility] Work Phone: Start: 07-11-2023 End: 07-11-2023 Subsequent hospital visit by physician [facility] Comment on above: Atherosclerosis of n ative coronary artery of [place] heart without angina pectoris [I25.10] Start: 06-12-2023 Telephone encounter Branden silva MD Work Phone: Cardiology Comment on above: Nm Pet Request Medication Authoriza tion Start: 04-18-2023 End: 04-18-2023 ambulatory Amilcar D [facility] Facility:[facility] Start: 12-06-2022 End: 12-06-2022 Office outpatient visit 15 minutes Brenda Santizo APRN.ELECTROMECHANISMS DESIGN DRAFTER Work Phone: [facility] [place] Comment on above: S/P CABG (coronary a rtery bypass graft) (Primary Dx); Chronic idiopathic thrombocytopenia (HCC); Encounter for immunization; Mixed hyperlipidemia; Essential hypertension; Peptic ulcer; S/P drug eluting coronary stent placement Start: 11-23-2022 Orders Only Branden noel MD Work Phone: Cardiology Comment on above: Atherosclerosis of n ative coronary artery of [place] heart without angina pectoris (Primary Dx) Start: 07-01-2022 ambulatory Branden noel MD Work Phone: Cardiology Comment on above: Your ultrasound and echocardiogram Start: 07-01-2022 E-mail encounter fro m caregiver Branden Hickman MD Work Phone: [facility] Start: 06-20-2022 End: 06-20-2022 Subsequent hospital visit by physician [facility] Work Phone: Radiology Comment on above: Family history of ab dominal aortic aneurysm (AAA) [Z82.49] Start: 06-13-2022 End: 06-13-2022 Patient encounter procedure Branden Hickman MD Work Phone: Cardiology Comment on above: Atherosclerosis of n ative coronary artery of [place] heart without angina pectoris (Primary Dx); Mixed hyperlipidemia; Essential hypertension; S/P CABG (coronary artery bypass graft); S/P drug eluting coronary stent placement; Family history of aortic aneurysm Start: 05-03-2022 End: 05-03-2022 Patient encounter procedure Brenda Santizo APRN.ELECTROMECHANISMS DESIGN DRAFTER Work Phone: [facility] [place] Comment on above: Routine medical exam (Primary Dx); Special screening examination for viral disease; Need for shingles vaccine; Encounter for immunization; Chronic idiopathic thrombocytopenia (HCC); Other hyperlipidemia; Essential hypertension; S/P CABG (coronary artery bypass graft); S/P drug eluting coronary stent placement; Basal cell carcinoma (BCC), unspecified site; Family history of abdominal aortic aneurysm (AAA); Pure hypercholesterolemia; Peptic ulcer; Atherosclerosis 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 pectoris Start: 05-03-2022 End: 05-03-2022 Patient encounter status Brenda Santizo APRN.ELECTROMECHANISMS DESIGN DRAFTER Work Phone: [facility] Start: 12-07-2021 Orders Only Branden noel MD Work Phone: Cardiology Comment on above: S/P CABG (coronary a rtery bypass graft) (Primary Dx); Acute ischemic heart disease, unspecified (HCC) Start: 10-26-2021 Non-patient / Non-visit Dr. Malena Tamayo Work Phone: [facility] Start: 10-26-2021 End: 10-26-[address] Amilcar Tamayo Work Phone: [facility] Start: 08-13-2021 End: 08-13-[address] Amilcar Tamayo Work Phone: [facility] Start: 07-19-2021 End: 07-19-[address] Amilcar Tamayo Work Phone: [facility] Start: 02-28-2018 End: 02-28-2018 Patient encounter [facility] Procedures Date Procedure Procedure Detail Performing Clinician Start: 01-13-2025 Brncdilat rspse spmtry pre&post-brncdilat admn Homa Coleman APRN.LARGE ANIMAL VETERINARIAN Work Phone: Start: 07-01-2024 P[employer] COVID-19 VACCINE AGE 12+ YR (COMIRNATY) Talib Jung APRN.LARGE ANIMAL VETERINARIAN Work Phone: Start: 07-01-2024 Adult depression screening assessment Talib Jung APRN.LARGE ANIMAL VETERINARIAN Work Phone: Start: 05-16-2024 Noninvasive ear/pulse oximetry multiple deter Millie Chester MD Work Phone: Start: 04-30-2024 Brncdilat rspse spmtry pre&post-brncdilat admn Millie Chester MD Work Phone: Start: 04-30-2024 Radiologic exam chest 2 views Millie Chester MD Work Phone: Start: 01-11-2024 Brncdilat rspse spmtry pre&post-brncdilat admn Talib Jung APRN.LARGE ANIMAL VETERINARIAN Work Phone: Start: 01-09-2024 Radiologic exam chest 2 views Talib Jung APRN.LARGE ANIMAL VETERINARIAN Work Phone: Start: 09-05-2023 CT of head without contrast Start: 09-05-2023 Plain x-ray of wrist Start: 07-11-2023 Myocrd img pet prfuj er medical technician std rst&strs cncrnt ct Branden Hickman MD Work Phone: Start: 06-20-2022 Us abdominal aorta real time screen study aaa Brenda Santizo APRN.ELECTROMECHANISMS DESIGN DRAFTER Work Phone: Start: 05-03-2022 INFLUENZA SEASONAL QUADRIVALENT HIGH DOSE AGE 65+ Brenda Santizo TAPER OPERATOR.ELECTROMECHANISMS DESIGN DRAFTER Work Phone: Start: 05-03-2022 [employer] COVID-19 BIVALENT BOOSTER VACCINE, AGE 12+ YR Brenda Santizo TAPER OPERATOR.ELECTROMECHANISMS DESIGN DRAFTER Work Phone: Start: 05-03-2022 Adult depression screening assessment Brenda Santizo APRN.ELECTROMECHANISMS DESIGN DRAFTER Work Phone: Start: 10-26-2021 Radionuclide imaging of perfusion of myocardium under exercise stress Dr. Amilcar Tamayo Work Phone: Start: 01-13-2021 Adult depression screening assessment Branden Hickman MD Work Phone: Start: 05-01-2017 End: 05-01-2017 Follow Up Appt 6 months Lev Latif MD Start: 05-01-2017 End: 05-09-2017 Nuclear stress test -exercise Lev Latif MD Start: 05-01-2017 End: 05-01-2017 PFM Lev Latif MD Start: 05-01-2017 End: 05-01-2017 Dietary management education, guidance, and counseling Rosalia Pittman Start: 05-01-2017 End: 05-01-2017 Follow Up Appt 6 months Lev Latif MD Start: 05-01-2017 End: 05-09-2017 Nuclear stress test -exercise Lev Latif MD Start: 05-01-2017 End: 05-01-2017 PFShelia Latif MD Start: 04-24-2017 End: 04-24-2017 *Hepatic [...] Lev Latif MD Start: 11-07-2016 End: 11-07-2016 MM Lev Latif MD Start: 04-25-2016 End: 04-25-2016 [...] 04-21-2016 End: 04-27-2016 Lipid panel [AGGREGATE] Lev Latfi MD Start: 11-09-2015 End: 11-10-2015 Follow Up [...] Serum or Plasma Lev Latif MD Start: 10-13-2015 End: 10-27-2015 [...] S/P CABG (coronary artery bypass graft) Branden Hickman MD Work Phone: Start: 12-02-2014 History of placement of stent for coronary artery disease S/P drug eluting coronary stent placement Branden Hickman MD Work Phone: Start: 11-06-2014 End: 04-16-2015 [...] PA-C Work Phone: Start: 10-20-2014 End: 10-20-2014 Shelia Whitehead PA-C Work Phone: Start: 05-19-2014 End: [...] PFM Nurys Whitehead PA-C Work Phone: Start: 12-02-2013 [...] PA-C Work Phone: Start: 12-10-2012 End: 12-10-2012 PFM Nurys Whitehead PA-C Work Phone: Start: 12-10-2012 [...] End: 11-23-2012 Follow Up Appt 6 months Lve Latif MD Start: 05-14-2012 End: 11-23-2012 Nuclear [...] Appt 6 months Lev Latif MD Start: 04-05-2011 End: 08-02-2017 History of coronary artery bypass grafting Postsurgical aortocoronary bypass status Talib Jung TAPER OPERATOR.LARGE ANIMAL VETERINARIAN Work Phone: Start: 08-14-1985 History of coronary artery bypass grafting Aortocoronary bypass status Dr. Amilcar Tamayo Work Phone: History of coronary artery bypass grafting S/P CABG (coronary artery bypass graft) Branden Hickman MD Work Phone: History of coronary artery bypass grafting S/P CABG (coronary artery bypass graft) Brenda Santizo TAPER OPERATOR.ELECTROMECHANISMS DESIGN DRAFTER Work Phone: History of coronary artery bypass grafting S/P CABG (coronary artery bypass graft) Branden Hickman MD Work Phone: History of coronary artery bypass grafting S/P CABG (coronary artery bypass graft) Brenda Santizo APRN.ELECTROMECHANISMS DESIGN DRAFTER Work Phone: History of coronary artery bypass grafting S/P CABG (coronary artery bypass graft) Amilcar Tamayo MD Work Phone: History of coronary artery bypass grafting S/P CABG (coronary artery bypass graft) Branden Hickman MD Work Phone: History of coronary artery bypass grafting S/P CABG (coronary artery bypass graft) Branden Hickman MD Work Phone: History of placement of stent for coronary artery disease S/P drug eluting coronary stent placement Brenda Santizo APRN.ELECTROMECHANISMS DESIGN DRAFTER Work Phone: History of placement of stent for coronary artery disease S/P drug eluting coronary stent placement Branden Hickman MD Work Phone: History of placement of stent for coronary artery disease S/P drug eluting coronary stent placement Brenda Santizo APRN.ELECTROMECHANISMS DESIGN DRAFTER Work Phone: History of placement of stent for coronary artery disease S/P drug eluting coronary stent placement Branden Hickman MD Work Phone: Plan of Treatment Date Care Activity Detail Author Start: 12-06-2032 Urine microalbumin profile [facility] Start: 01-14-2028 Diabetes Screening Diabetes Screenin g [facility] Start: 10-30-2027 Diabetes Screening Diabetes Screenin g [facility] Start: 05-29-2027 Diabetes Screening Diabetes Screenin g [facility] Start: 06-12-2026 Diabetes Screening Diabetes Screenin g [facility] Start: 01-20-2026 Covid-19 Vaccine ( season) Covid-19 Vaccine () [facility] Comment on above: Postponed from 12/29 (Declined at this time) Start: 01-20-2026 RSV Vaccine (1 - 1-d ose 75+ series) RSV Vaccine (1 - 1-dose 75+ series) [facility] Comment on above: Postponed from 09/03 (Declined at this time) Start: 01-20-2026 End: 01-20-2026 Patient encounter procedure 01/20/2026 9:20 AM EDT Office Visit [facility] [address] [place] [address] Amilcar Tamayo MD [address] [place] [address] 6 month f/u [facility] Comment on above: 6 month f/u Start: 08-18-2025 End: 08-18-2025 Patient encounter procedure 08/18/2025 10:00 AM EST Office Visit Internal Medicine [facility] [address] [place] [address] Amilcar Tamayo MD [address] [place] [address] MWV/Medicare [facility] Comment on above: MWV/Medicare Start: 07-22-2025 End: 07-22-2025 Patient encounter procedure 07/22/2025 1:15 PM EST Office Visit Cardiology [address] [id number] Branden Hickman MD [address] [facility] [address] [place] [address] Dx Atherosclerosis 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 pectoris Cardiology Comment on above: Dx Atherosclerosis o f [place] coronary artery of [place] heart without angina pectoris Start: 07-22-2025 End: 07-22-2025 ambulatory 07/22/2025 12:30 PM EST Results Only [facility] [address] [id number] Dx Atherosclerosis 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 pectoris [place] [address] Draw Station Comment on above: Dx Atherosclerosis o f [place] coronary artery of [place] heart without angina pectoris Start: 07-08-2025 End: 10-07-2025 Comprehensive metabolic 2000 panel - Serum or Plasma COMPREHENSIVE METABOLIC PANEL Lab Routine Atherosclerosis 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 pectoris Expected: 07/08/2025, Expires: 10/07/2025 [facility] Work Phone: Comment on above: Expected: 07/08/2025 , Expires: 10/07/2025 Start: 07-08-2025 End: 10-07-2025 Lipid 1996 panel - Serum or Plasma LIPID PANEL BASIC Lab Routine Atherosclerosis 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 pectoris Expected: 07/08/2025, Expires: 10/07/2025 [facility] Comment on above: Expected: 07/08/2025 , Expires: 10/07/2025 Start: 07-01-2025 Annual PCP Team Sponge Hooker genesis Disease Visit Annual PCP Team Chronic Disease Visit [facility] Start: 07-01-2025 Anxiety Screening Anxiety Screening [facility] Start: 07-01-2025 Depression Screening Depression Scre ening [facility] Start: 06-13-2025 DIABETES SCREEN DIABETES SCREEN [facility] Start: 05-29-2025 Hepatitis B surface antibody level LDL Cholesterol [facility] Start: 05-29-2025 End: 05-29-2025 Patient encounter procedure Cat Scan Comment on above: Lung nodule [R91.1] 5 month f/u-review C T Start: 05-28-2025 BP Controlled (<130/80) BP Controlle d (<130/80) [facility] Start: 05-28-2025 End: 06-27-2025 CT Chest WO contrast CT CHEST WO IVCON Radiology Routine Lung nodule Expected: 05/28/2025 (Approximate), Expires: 06/27/2025 [facility] Comment on above: Expected: 05/28/2025 (Approximate), Expires: 06/27/2025 Start: 04-14-2025 Influenza vaccination Influenza Vacc ine (#1) [facility] Start: 01-20-2025 End: 01-20-2025 Patient encounter procedure 01/20/2025 9:20 AM EDT Office Visit Internal Medicine [facility] [address] [place] [id number] Amilcar Tamayo MD [address] [place] [id number] 6 month follow up [facility] Medicine [facility] Comment on above: 6 month follow up Start: 01-08-2025 Annual PCP Team Sponge Hooker genesis Disease Visit Annual PCP Team Chronic Disease Visit [facility] Start: 01-08-2025 BP Controlled (<130/80) BP Controlle d (<130/80) [facility] Start: 12-31-2024 End: 12-31-2024 Patient encounter procedure Pulmonary Medicine Comment on above: 4m f/up Start: 12-29-2024 Covid-19 Vaccine () Covid-19 Vaccine () [facility] Start: 09-11-2024 End: 12-11-2024 Basic metabolic 2000 panel - Serum or Plasma BASIC METABOLIC PANEL Lab Routine IPF (idiopathic pulmonary fibrosis) (HCC) Expected: 09/11/2024 (Approximate), Expires: 12/11/2024 [facility] Comment on above: Expected: 09/11/2024 (Approximate), Expires: 12/11/2024 Start: 08-28-2024 End: 11-27-2024 [facility] Lab Routine Allergic rhinitis, unspecified seasonality, unspecified trigger Expected: 08/28/2024, Expires: 11/27/2024 [facility] Work Phone: Comment on above: Expected: 08/28/2024 , Expires: 11/27/2024 Start: 08-28-2024 End: 11-27-2024 IgE [Units/volume] in Serum or Plasma IMMUNOGLOBULIN E Lab Routine Allergic rhinitis, unspecified seasonality, unspecified trigger Expected: 08/28/2024, Expires: 11/27/2024 [facility] Comment on above: Expected: 08/28/2024 , Expires: 11/27/2024 Start: 08-28-2024 End: 08-28-2024 Patient encounter procedure 08/28/2024 9:30 AM EST Office Visit Pulmonary Medicine [address] [place] [address] Homa Coleman APRN.LARGE ANIMAL VETERINARIAN [address] [place] [address] 3 month f/u Pulmonary Medicine Comment on above: 3 month f/u Start: 08-14-2024 Advance Directive Discussion Advance Directive Discussion [facility] Start: 07-10-2024 Annual PCP Team Sponge Hooker genesis Disease Visit Annual PCP Team Chronic Disease Visit [facility] Start: 07-10-2024 BP Controlled (<130/80) BP Controlle d (<130/80) [facility] Start: 07-10-2024 RSV Vaccine (1 - 1-d ose 60+ series) RSV Vaccine (1 - 1-dose 60+ series) [facility] Comment on above: Postponed from 09/03 (Declined at this time) Start: 07-10-2024 RSV Vaccine (1 - 1-d ose 75+ series) RSV Vaccine (1 - 1-dose 75+ series) [facility] Comment on above: Postponed from 09/03 (Declined at this time) Start: 07-10-2024 Shingrix Vaccine (2 of 3) Leon grix Vaccine (2 of 3) [facility] Comment on above: Postponed from 02/04 (Declined at this time) Start: 07-08-2024 End: 07-08-2024 Patient encounter procedure Cardiology Comment on above: 1 YR F/U Dx: Atherosclerosis 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 pectoris [I25.10 (ICD-10-CM)] Start: 07-08-2024 End: 07-08-2024 ambulatory 07/08/2024 1:30 PM EST Results Only Cardiology [address] [place] [address] 1 YR F/U Cardiology Comment on above: 1 YR F/U Start: 07-01-2024 End: 07-01-2024 Patient encounter procedure 07/01/2024 11:20 AM EST Office Visit [facility] [address] [place], [place] [id number] Talib Jung APRN.LARGE ANIMAL VETERINARIAN [address] [place] [address] 6 month follow up [facility] Comment on above: 6 month follow up Start: 06-12-2024 Hepatitis B surface antibody level LDL Cholesterol [facility] Start: 06-12-2024 End: 06-12-2024 Orders Only 06/12/2024 Orders Only Cardiology [address] [place] [address] Branden Hickman MD [address] [facility] [address] [place] [address] Atherosclerosis 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 pectoris Cardiology Comment on above: Atherosclerosis of n ative coronary artery of [place] heart without angina pectoris Start: 06-11-2024 End: 09-10-2024 Hepatic function 2000 panel - Serum or Plasma HEPATIC FUNCTION PNL Lab Routine IPF (idiopathic pulmonary fibrosis) (HCC) Expected: 06/11/2024, Expires: 09/10/2024 [facility] Work Phone: Comment on above: Expected: 06/11/2024 , Expires: 09/10/2024 Start: 05-28-2024 End: 08-27-2024 WILLIAM BY IFA SCREEN WILLIAM BY IFA SCREEN Lab Routine IPF (idiopathic pulmonary fibrosis) (HCC) Expected: 05/28/2024, Expires: 08/27/2024 [facility] Work Phone: Comment on above: Expected: 05/28/2024 , Expires: 08/27/2024 Start: 05-28-2024 End: 08-27-2024 ANTI NEUTRO CYTO AB ANTI NEUTRO CYTO AB Lab Routine IPF (idiopathic pulmonary fibrosis) (HCC) Expected: 05/28/2024, Expires: 08/27/2024 [facility] Comment on above: Expected: 05/28/2024 , Expires: 08/27/2024 Start: 05-28-2024 End: 08-27-2024 Basic metabolic 2000 panel - Serum or Plasma BASIC METABOLIC PANEL Lab Routine IPF (idiopathic pulmonary fibrosis) (HCC) Expected: 05/28/2024, Expires: 08/27/2024 [facility] Comment on above: Expected: 05/28/2024 , Expires: 08/27/2024 Start: 05-28-2024 End: 08-27-2024 Cyclic citrullinated peptide IgG Ab [Units/volume] in Serum or Plasma CCP ANTIBODY IGG Lab Routine IPF (idiopathic pulmonary fibrosis) (HCC) Expected: 05/28/2024, Expires: 08/27/2024 [facility] Comment on above: Expected: 05/28/2024 , Expires: 08/27/2024 Start: 05-28-2024 End: 08-27-2024 DNA ANTIBODY DS BLD DNA ANTIBODY DS BLD Lab Routine IPF (idiopathic pulmonary fibrosis) (HCC) Expected: 05/28/2024, Expires: 08/27/2024 [facility] Comment on above: Expected: 05/28/2024 , Expires: 08/27/2024 Start: 05-28-2024 End: 08-27-2024 Extractable nuclear Ab panel - Serum ANTI HARITHA ID Lab Routine IPF (idiopathic pulmonary fibrosis) (HCC) Expected: 05/28/2024, Expires: 08/27/2024 [facility] Comment on above: Expected: 05/28/2024 , Expires: 08/27/2024 Start: 05-28-2024 End: 08-27-2024 Hepatic function 2000 panel - Serum or Plasma HEPATIC FUNCTION PNL Lab Routine IPF (idiopathic pulmonary fibrosis) (HCC) Expected: 05/28/2024, Expires: 08/27/2024 [facility] Comment on above: Expected: 05/28/2024 , Expires: 08/27/2024 Start: 05-28-2024 End: 08-27-2024 POLYMYOSITIS AND DERMATOMYOSITIS PANEL POLYMYOSITIS AND DERMATOMYOSITIS PANEL Lab Routine IPF (idiopathic pulmonary fibrosis) (HCC) Expected: 05/28/2024, Expires: 08/27/2024 [facility] Comment on above: Expected: 05/28/2024 , Expires: 08/27/2024 Start: 05-28-2024 End: 08-27-2024 Rheumatoid factor [Units/volume] in Serum or Plasma RHEUMATOID FACTOR Lab Routine IPF (idiopathic pulmonary fibrosis) (HCC) Expected: 05/28/2024, Expires: 08/27/2024 [facility] Comment on above: Expected: 05/28/2024 , Expires: 08/27/2024 Start: 05-28-2024 End: 08-27-2024 RNA POLYMERASE III AB RNA POLYMERASE III AB Lab Routine IPF (idiopathic pulmonary fibrosis) (HCC) Expected: 05/28/2024, Expires: 08/27/2024 [facility] Comment on above: Expected: 05/28/2024 , Expires: 08/27/2024 Start: 05-28-2024 End: 05-28-2024 Patient encounter procedure 05/28/2024 10:00 AM EDT Office Visit Pulmonary Medicine [address] [place] [address] Homa Coleman APRN.LARGE ANIMAL VETERINARIAN [address] [place] [address] testing follow up Pulmonary Medicine Comment on above: testing follow up Start: 05-16-2024 End: 05-16-2024 Patient encounter procedure 05/16/2024 10:20 AM EDT Appointment Cat Scan [address] [place] [address] Interstitial pulmonary disease (HCC) [J84.9] Cat Scan Comment on above: Interstitial pulmona ry disease (HCC) [J84.9] Start: 05-16-2024 End: 05-16-2024 ambulatory 05/16/2024 9:30 AM EDT Procedure PULM [facility] [address] [place] [address] [facility], Pul[facility] [address] [place] [address] Interstitial pulmonary disease (HCC) [J84.9] [facility] Comment on above: Interstitial pulmona ry disease (HCC) [J84.9] Start: 04-30-2024 End: 04-30-2024 ambulatory [facility] Comment on above: COPD Start: 04-30-2024 End: 04-30-2024 Patient encounter procedure Radiology Comment on above: COPD Start: 04-14-2024 Covid-19 Vaccine ( season) Covid-19 Vaccine ( season) [facility] Start: 04-14-2024 Covid-19 Vaccine ( season) Covid-19 Vaccine () [facility] Start: 04-14-2024 Influenza vaccination Influenza Vacc ine (#1) [facility] Start: 01-11-2024 End: 01-11-2024 ambulatory [facility]UL[facility] Comment on above: Chronic obstructive pulmonary disease, unspecified COPD type (HCC) [J44.9] Start: 12-07-2023 BP CONTROLLED (<130/80) BP CONTROLLE D (<130/80) [facility] Start: 11-08-2023 Covid-19 Vaccine () Covid-19 Vaccine () [facility] Start: 09-05-2023 [facility] Start: 08-14-2023 Behavioral Health Screening Behavioral Health Screening [facility] Start: 06-24-2023 DIABETES SCREEN DIABETES SCREEN [facility] Start: 06-13-2023 BP CONTROLLED (<130/80) BP CONTROLLE D (<130/80) [facility] Start: 06-13-2023 Hepatitis B surface antibody level LDL CHOLESTEROL [facility] Start: 06-12-2023 End: 08-12-2023 Comprehensive metabolic 2000 panel - Serum or Plasma COMP METABOLIC PANEL Lab Routine Atherosclerosis 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 pectoris Expected: 06/12/2023, Expires: 08/12/2023 [facility] Work Phone: Comment on above: Expected: 06/12/2023 , Expires: 08/12/2023 Start: 06-12-2023 End: 08-12-2023 Lipid 1996 panel - Serum or Plasma LIPID PANEL BASIC Lab Routine Atherosclerosis 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 pectoris Expected: 06/12/2023, Expires: 08/12/2023 [facility] Work Phone: Comment on above: Expected: 06/12/2023 , Expires: 08/12/2023 Start: 05-03-2023 Adult depression screening assessment DEPRESSION SCREENING [facility] Start: 05-03-2023 ANNUAL PCP TEAM CELLOPHANER GENESIS DISEASE VISIT ANNUAL PCP TEAM CHRONIC DISEASE VISIT [facility] Start: 05-03-2023 BP CONTROLLED (<130/80) BP CONTROLLE D (<130/80) [facility] Start: 04-14-2023 Covid-19 Vaccine () Covid-19 Vaccine () [facility] Start: 04-14-2023 Influenza vaccination Influenza Vacc ine (#1) [facility] Start: 09-02-2022 COVID-19 VACCINE (4 - Booster for Pfizer series) COVID-19 VACCINE (4 - Booster for Pfizer series) [facility] Start: 08-14-2022 ADVANCE DIRECTIVE DISCUSSION ADVANCE DIRECTIVE DISCUSSION [facility] Start: 08-14-2022 DEPRESSION ASSESSMENT DEPRESSION ASS ESSMENT [facility] Start: 06-11-2022 BP CONTROLLED (<130/80) BP CONTROLLE D (<130/80) [facility] Start: 06-11-2022 Hepatitis B surface antibody level LDL CHOLESTEROL [facility] Start: 06-08-2022 Urine microalbumin profile DTAP,TDAP,TD (2 - Td or Tdap) [facility] Start: 05-03-2022 End: 07-03-2022 CBC W Auto Differential panel - Blood CBC + DIFF Lab Routine Essential hypertension Expected: 05/03/2022, Expires: 07/03/2022 [facility] Work Phone: Comment on above: Expected: 05/03/2022 , Expires: 07/03/2022 Start: 05-03-2022 End: 07-03-2022 Comprehensive metabolic 2000 panel - Serum or Plasma COMP METABOLIC PANEL Lab Routine Essential hypertension Expected: 05/03/2022, Expires: 07/03/2022 [facility] Work Phone: Comment on above: Expected: 05/03/2022 , Expires: 07/03/2022 Start: 05-03-2022 End: 07-03-2022 Hepatitis C virus Ab [Presence] in Serum HEP C AB IA W/CONF SCRN Lab Routine Special screening examination for viral disease Expected: 05/03/2022, Expires: 07/03/2022 [facility] Work Phone: Comment on above: Expected: 05/03/2022 , Expires: 07/03/2022 Start: 05-03-2022 End: 07-03-2022 Lipid 1996 panel - Serum or Plasma LIPID PANEL BASIC Lab Routine Other hyperlipidemia S/P CABG (coronary artery bypass graft) S/P drug eluting coronary stent placement Expected: 05/03/2022, Expires: 07/03/2022 [facility] Work Phone: Comment on above: Expected: 05/03/2022 , Expires: 07/03/2022 Start: 04-14-2022 Influenza vaccination INFLUENZA (Sea son Ended) [facility] Start: 01-13-2022 Adult depression screening assessment DEPRESSION SCREENING [facility] Start: 12-07-2021 End: 02-06-2022 Comprehensive metabolic 2000 panel - Serum or Plasma COMP METABOLIC PANEL Lab Routine S/P CABG (coronary artery bypass graft) Expected: 12/07/2021, Expires: 02/06/2022 [facility] Work Phone: Comment on above: Expected: 12/07/2021 , Expires: 02/06/2022 Start: 12-07-2021 End: 02-06-2022 LIPID PANEL BASIC LIPID PANEL BASIC Lab Routine S/P CABG (coronary artery bypass graft) Acute ischemic heart disease, unspecified (HCC) Expected: 12/07/2021, Expires: 02/06/2022 [facility] Work Phone: Comment on above: Expected: 12/07/2021 , Expires: 02/06/2022 Start: 08-14-2021 ADVANCE DIRECTIVE DISCUSSION ADVANCE DIRECTIVE DISCUSSION [facility] Start: 08-14-2021 DEPRESSION ASSESSMENT DEPRESSION ASS ESSMENT [facility] Start: 04-12-2021 COVID-19 VACCINE (3 - Booster for Pfizer series) COVID-19 VACCINE (3 - Booster for Pfizer series) [facility] Start: 07-31-2019 ANNUAL PCP TEAM CELLOPHANER GENESIS DISEASE VISIT ANNUAL PCP TEAM CHRONIC DISEASE VISIT [facility] Start: 2018 RSV Vaccine (1 - 1-d ose 75+ series) RSV Vaccine (1 - 1-dose 75+ series) [facility] Start: 05-07-2018 End: 05-07-2018 Appointment Appointment [facility] Work Phone: Start: 11-06-2017 End: 11-06-2017 Appointment Appointment [facility] Work Phone: Start: 10-23-2017 End: 04-25-2017 *Hepatic Function Panel *Hepatic Function Panel [facility] Work Phone: Start: 10-23-2017 End: 04-25-2017 Lipid 1996 panel *Lipid Profile CC [facility]CP [facility] Work Phone: Start: 10-23-2017 End: 04-25-2017 *Hepatic Function Panel *Hepatic Function Panel [facility] Work Phone: Start: 10-23-2017 End: 04-25-2017 Lipid panel [AGGREGATE] *Lipid Profile CC PCP [facility] Work Phone: Start: 05-11-2017 End: 05-11-2017 Cardiac Referral Cardiac Referral [address], [address], [place], [address] [facility] Work Phone: Start: 05-03-2017 End: 04-24-2017 *Hepatic Function Panel *Hepatic Function Panel [facility] Work Phone: Start: 05-03-2017 End: 04-24-2017 Lipid 1996 panel *Lipid Profile CC PCP [facility] Work Phone: Start: 05-03-2017 End: 04-24-2017 *Hepatic Function Panel *Hepatic Function Panel [facility] Work Phone: Start: 05-03-2017 End: 04-24-2017 Lipid panel [AGGREGATE] *Lipid Profile CC PCP [facility] Work Phone: Start: 05-01-2017 End: 05-01-2017 Follow Up Appt 6 months Follow Up Appt 6 months [facility] Work Phone: Start: 05-01-2017 End: 05-01-2017 Nuclear stress test -exercise Nuclear stress test -exercise [facility] Work Phone: Start: 05-01-2017 End: 05-01-2017 PFM PFM [facility] Work Phone: Start: 05-01-2017 End: 05-01-2017 Appointment Appointment [facility] Work Phone: Start: 05-01-2017 End: 05-01-2017 Follow Up Appt 6 months Follow Up Appt 6 months [facility] Work Phone: Start: 05-01-2017 End: 05-01-2017 Nuclear stress test -exercise Nuclear stress test -exercise [facility] Work Phone: Start: 05-01-2017 End: 05-01-2017 PFM PFM [facility] Work Phone: Start: 11-07-2016 End: 11-07-2016 Follow Up Appt 6 months Follow Up Appt 6 months [facility] Work Phone: Start: 11-07-2016 End: 11-07-2016 MMM MMM [facility] Work Phone: Start: 11-07-2016 End: 11-07-2016 Follow Up Appt 6 months Follow Up Appt 6 months [facility] Work Phone: Start: 11-07-2016 End: 11-07-2016 MM MMM [facility] Work Phone: Start: 04-25-2016 End: 04-25-2016 *Hepatic Function Panel *Hepatic Function Panel [facility] Work Phone: Start: 04-25-2016 End: 04-25-2016 Follow Up Appt 6 months Follow Up Appt 6 months [facility] Work Phone: Start: 04-25-2016 End: 04-25-2016 Lipid 1996 panel *Lipid Profile CC [facility]CP [facility] Work Phone: Start: 04-25-2016 End: 04-25-2016 PFM PFM [facility] Work Phone: Start: 04-25-2016 End: 04-25-2016 *Hepatic Function Panel *Hepatic Function Panel [facility] Work Phone: Start: 04-25-2016 End: 04-25-2016 Follow Up Appt 6 months Follow Up Appt 6 months [facility] Work Phone: Start: 04-25-2016 End: 04-25-2016 Lipid panel [AGGREGATE] *Lipid Profile CC PCP [facility] Work Phone: Start: 04-25-2016 End: 04-25-2016 PFM PFM [facility] Work Phone: Start: 04-21-2016 End: 04-27-2016 *Hepatic Function Panel *Hepatic Function Panel [facility] Work Phone: Start: 04-21-2016 End: 04-27-2016 Lipid 1996 panel *Lipid Profile CC PCP [facility] Work Phone: Start: 04-21-2016 End: 04-27-2016 *Hepatic Function Panel *Hepatic Function Panel [facility] Work Phone: Start: 04-21-2016 End: 04-27-2016 Lipid panel [AGGREGATE] *Lipid Profile CC PCP [facility] Work Phone: Start: 11-09-2015 End: 11-10-2015 Follow Up Appt 6 months Follow Up Appt 6 months [facility] Work Phone: Start: 11-09-2015 End: 11-10-2015 PFM PFM [facility] Work Phone: Start: 11-09-2015 End: 11-10-2015 Follow Up Appt 6 months Follow Up Appt 6 months [facility] Work Phone: Start: 11-09-2015 End: 11-10-2015 PFM PFM [facility] Work Phone: Start: 10-13-2015 End: 10-27-2015 *Hepatic Function Panel *Hepatic Function Panel [facility] Work Phone: Start: 10-13-2015 End: 10-27-2015 Lipid 1996 panel *Lipid Profile CC PCP [facility] Work Phone: Start: 10-13-2015 End: 10-27-2015 *Hepatic Function Panel *Hepatic Function Panel [facility] Work Phone: Start: 10-13-2015 End: 10-27-2015 Lipid panel [AGGREGATE] *Lipid Profile CC PCP [employer] Phone: Start: 04-27-2015 End: 04-27-2015 Follow Up Appt 6 months Follow Up Appt 6 months [employer] Phone: Start: 04-27-2015 End: 05-27-2015 Nuclear stress test -exercise Nuclear stress test -exercise [employer] Phone: Start: 04-27-2015 End: 04-27-2015 PFM [employer] [employer] Phone: Start: 04-27-2015 End: 04-27-2015 Follow Up Appt 6 months Follow Up Appt 6 months [employer] Phone: Start: 04-27-2015 End: 05-27-2015 Nuclear stress test -exercise Nuclear stress test -exercise [employer] Phone: Start: 04-27-2015 End: 04-27-2015 PFM [facility] Work Phone: Start: 11-06-2014 End: 11-06-2014 Cardiac Referral Cardiac Referral [address], [place], [address] [employer] Phone: Start: 11-06-2014 End: 11-06-2014 Cardiac Referral Cardiac Referral [address], [place], [address] [employer] Phone: Start: 10-20-2014 End: 10-20-2014 Chest x-ray X-Ray, Chest, PA & Lateral [employer] Phone: Start: 10-20-2014 End: 10-20-2014 Ecg routine ecg w/least 12 lds w/i&r EKG (In office) [employer] Phone: Start: 10-20-2014 End: 10-20-2014 Follow Up Appt 6 months Follow Up Appt 6 months [facility] Work Phone: Start: 10-20-2014 End: 10-24-2014 Nuclear stress test -exercise Nuclear stress test -exercise [facility] Work Phone: Start: 10-20-2014 End: 10-20-2014 PFM PFM [facility] Work Phone: Start: 10-20-2014 End: 10-20-2014 Chest x-ray X-Ray, Chest, PA & Lateral [facility] Work Phone: Start: 10-20-2014 End: 10-20-2014 Electrocardiogram, complete EKG (In office) [facility] Work Phone: Start: 10-20-2014 End: 10-20-2014 Follow Up Appt 6 months Follow Up Appt 6 months [facility] Work Phone: Start: 10-20-2014 End: 10-24-2014 Nuclear stress test -exercise Nuclear stress test -exercise [facility] Work Phone: Start: 10-20-2014 End: 10-20-2014 PFM PF [facility] Work Phone: Start: 05-19-2014 End: 10-20-2014 *Hepatic Function Panel *Hepatic Function Panel [facility] Work Phone: Start: 05-19-2014 End: 10-08-2014 Follow Up Appt 6 months Follow Up Appt 6 months [facility] Work Phone: Start: 05-19-2014 End: 10-20-2014 Lipid 1996 panel *Lipid Profile CC PCP [facility] Work Phone: Start: 05-19-2014 End: 10-08-2014 PFM PFM [facility] Work Phone: Start: 05-19-2014 End: 10-20-2014 *Hepatic Function Panel *Hepatic Function Panel [facility] Work Phone: Start: 05-19-2014 End: 10-08-2014 Follow Up Appt 6 months Follow Up Appt 6 months [facility] Work Phone: Start: 05-19-2014 End: 10-20-2014 Lipid panel [AGGREGATE] *Lipid Profile CC PCP [facility] Work Phone: Start: 05-19-2014 End: 10-08-2014 PFM PFM [facility] Work Phone: Start: 12-02-2013 End: 12-02-2013 Follow Up Appt 6 months Follow Up Appt 6 months [facility] Work Phone: Start: 12-02-2013 End: 12-02-2013 PFM PFM [facility] Work Phone: Start: 12-02-2013 End: 12-02-2013 Follow Up Appt 6 months Follow Up Appt 6 months [facility] Work Phone: Start: 12-02-2013 End: 12-02-2013 PFM PFM [facility] Work Phone: Start: 05-27-2013 End: 05-27-2013 Follow Up Appt 6 months Follow Up Appt 6 months [facility] Work Phone: Start: 05-27-2013 End: 05-27-2013 PFM PFM [facility] Work Phone: Start: 05-27-2013 End: 05-27-2013 Follow Up Appt 6 months Follow Up Appt 6 months [facility] Work Phone: Start: 05-27-2013 End: 05-27-2013 PFM PFM [facility] Work Phone: Start: 12-10-2012 End: 12-10-2012 Follow Up Appt 6 months Follow Up Appt 6 months [facility] Work Phone: Start: 12-10-2012 End: 12-10-2012 Nuclear stress test -exercise Nuclear stress test -exercise [facility] Work Phone: Start: 12-10-2012 End: 12-10-2012 PFM PFM [facility] Work Phone: Start: 12-10-2012 End: 12-10-2012 Follow Up Appt 6 months Follow Up Appt 6 months [facility] [employer] Work Phone: Start: 12-10-2012 End: 12-10-2012 Nuclear stress test -exercise Nuclear stress test -exercise [facility] Work Phone: Start: 12-10-2012 End: 12-10-2012 PFM PFM [facility] Work Phone: Start: 10-12-2012 End: 05-07-2013 *Hepatic Function Panel *Hepatic Function Panel [facility] Work Phone: Start: 10-12-2012 End: 05-07-2013 Lipid 1996 panel *Lipid Profile [facility] Work Phone: Start: 10-12-2012 End: 05-07-2013 *Hepatic Function Panel *Hepatic Function Panel [facility] [employer] Work Phone: Start: 10-12-2012 End: 05-07-2013 Lipid panel [AGGREGATE] *Lipid Profile [facility] Work Phone: Start: 05-14-2012 End: 05-14-2012 Ecg routine ecg w/least 12 lds w/i&r EKG (In office) [facility] Work Phone: Start: 05-14-2012 End: 11-23-2012 Follow Up Appt 6 months Follow Up Appt 6 months [facility] [employer] Work Phone: Start: 05-14-2012 End: 05-14-2012 Nuclear stress test -exercise Nuclear stress test -exercise [facility] Work Phone: Start: 05-14-2012 End: 05-14-2012 Electrocardiogram, complete EKG (In office) [facility] Work Phone: Start: 05-14-2012 End: 11-23-2012 Follow Up Appt 6 months Follow Up Appt 6 months [facility] Work Phone: Start: 05-14-2012 End: 05-14-2012 Nuclear stress test -exercise Nuclear stress test -exercise [facility] Work Phone: Start: 04-20-2012 End: 05-01-2012 *Hepatic Function Panel *Hepatic Function Panel [facility] Work Phone: Start: 04-20-2012 End: 05-01-2012 Lipid 1996 panel *Lipid Profile [facility] Work Phone: Start: 04-20-2012 End: 05-01-2012 *Hepatic Function Panel *Hepatic Function Panel [facility] Work Phone: Start: 04-20-2012 End: 05-01-2012 Lipid panel [AGGREGATE] *Lipid Profile [facility] Work Phone: Start: 11-07-2011 End: 11-07-2011 Follow Up Appt 6 months Follow Up Appt 6 months [facility] Work Phone: Start: 11-07-2011 End: 11-07-2011 Follow Up Appt 6 months Follow Up Appt 6 months [facility] Work Phone: Start: 08-14-2008 Medicare Annual Well ness Visit Medicare Annual Wellness Visit [facility] Start: 02-05-2008 SHINGRIX VACCINE (2 of 3) LEON GRIX VACCINE (2 of 3) [facility] Start: 2003 RSV Vaccine (1 - 1-d ose 60+ series) RSV Vaccine (1 - 1-dose 60+ series) [facility] Start: 1961 Anxiety Screening Anxiety Screening [facility] Start: 1961 [facility]: [facility] HEPAT[facility]IS C SCREENING HEPATITIS C [facility] End: 05-30-2025 CT Chest WO contrast CT CHEST WO IVCON Radiology Routine Interstitial pulmonary disease (HCC) 1 Occurrences starting 04/30/2024 until 05/30/2025 [facility] Work Phone: Comment on above: 1 Occurrences starti ng 04/30/2024 until 05/30/2025 CT Chest WO contrast CT CHEST WO IVCON Radiology Routine Interstitial pulmonary disease (HCC) 05/16/2024 10:15 AM EDT [facility] Work Phone: End: 04-25-2025 ECG COMPLETE ECG COMPLETE ECG Routine SOB (shortness of breath) 1 Occurrences starting 04/25/2024 until 04/25/2025 [facility] Work Phone: Comment on above: 1 Occurrences starti ng 04/25/2024 until 04/25/2025 End: 06-13-2023 Echocardiography ECHO Cardiology Routine Atherosclerosis 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 pectoris Essential hypertension S/P CABG (coronary artery bypass graft) Family history of aortic aneurysm 1 Occurrences starting 06/13/2022 until 06/13/2023 [facility] Work Phone: Comment on above: 1 Occurrences starti ng 06/13/2022 until 06/13/2023 End: 07-05-2025 Echocardiography ECHO Cardiology Routine Atherosclerosis 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 pectoris S/P CABG (coronary artery bypass graft) Essential hypertension Family history of aortic aneurysm 1 Occurrences starting 07/05/2024 until 07/05/2025 [facility] Work Phone: Comment on above: 1 Occurrences starti ng 07/05/2024 until 07/05/2025 End: 02-07-2025 LUNG DIFFUSION CAPACITY (DLCO) LUNG DIFFUSION CAPACITY (DLCO) PFT Routine Chronic obstructive pulmonary disease, unspecified COPD type (HCC) 1 Occurrences starting 01/09/2024 until 02/07/2025 [facility] Comment on above: 1 Occurrences starti ng 01/09/2024 until 02/07/2025 LUNG DIFFUSION CAPAC ITY (DLCO) LUNG DIFFUSION CAPACITY (DLCO) PFT Routine IPF (idiopathic pulmonary fibrosis) (HCC) 01/13/2025 9:03 AM EDT [facility] Work Phone: End: 02-07-2025 LUNG VOLUMES LUNG VOLUMES PFT Routine Chronic obstructive pulmonary disease, unspecified COPD type (HCC) 1 Occurrences starting 01/09/2024 until 02/07/2025 [facility] Comment on above: 1 Occurrences starti ng 01/09/2024 until 02/07/2025 LUNG VOLUMES LUNG VOLUMES PFT Routine IPF (idiopathic pulmonary fibrosis) (HCC) 01/13/2025 9:03 AM EDT [facility] Work Phone: OXIMETRY - NOCTURNAL OXIMETRY - NOCTURNAL Procedures Routine Interstitial pulmonary disease (HCC) Ordered: 04/30/2024 [facility] Comment on above: Ordered: 04/30/2024 End: 05-30-2025 OXIMETRY WITH AMBULATION OXIMETRY WITH AMBULATION PFT Routine Interstitial pulmonary disease (HCC) 1 Occurrences starting 04/30/2024 until 05/30/2025 [facility] Comment on above: 1 Occurrences starti ng 04/30/2024 until 05/30/2025 Patient Education [facility] Work Phone: Patient referral [facility] Work Phone: End: 02-07-2025 SPIROMETRY WITH DILATOR IF OBSTRUCTED SPIROMETRY WITH DILATOR IF OBSTRUCTED PFT Routine Chronic obstructive pulmonary disease, unspecified COPD type (HCC) 1 Occurrences starting 01/09/2024 until 02/07/2025 [facility] Comment on above: 1 Occurrences starti ng 01/09/2024 until 02/07/2025 SPIROMETRY WITH DILA TOR IF OBSTRUCTED SPIROMETRY WITH DILATOR IF OBSTRUCTED PFT Routine IPF (idiopathic pulmonary fibrosis) (HCC) 01/13/2025 9:03 AM EDT [facility] Work Phone: End: 06-02-2023 Us abdominal aorta real time screen study aaa US SCREENING FOR AAA Radiology Routine Family history of abdominal aortic aneurysm (AAA) 1 Occurrences starting 05/03/2022 until 06/02/2023 [facility] Work Phone: Comment on above: 1 Occurrences starti ng 05/03/2022 until 06/02/2023 End: 02-07-2025 XR Chest PA and Lateral XR CHEST 2V FRONTAL/LAT Radiology Routine Chronic obstructive pulmonary disease, unspecified COPD type (HCC) 1 Occurrences starting 01/09/2024 until 02/07/2025 [facility] Work Phone: Comment on above: 1 Occurrences starti ng 01/09/2024 until 02/07/2025 XR Chest PA and Lateral XR CHEST 2V FRONTAL/LAT Radiology Routine Chronic obstructive pulmonary disease, unspecified COPD type (HCC) 01/09/2024 11:16 AM EDT [facility] Immunizations Immunization Date Immunization Notes Care Provider Elroy alexandra 07-01-2024 COVID-19 vaccine, ag e 12+ yr (PFIZER-BIONTECH COMIRNATY) Talib Jung TAPER OPERATOR.LARGE ANIMAL VETERINARIAN Work Phone: [facility] 07-01-2024 influenza, high dose seasonal, preservative-free Talib Jung TAPER OPERATOR.LARGE ANIMAL VETERINARIAN Work Phone: [facility] 07-01-2024 influenza virus vacc ine, unspecified formulation Amilcar Tamayo MD Work Phone: [facility] 07-10-2023 COVID-19 vaccine, ag e 12+ yr, season (PFIZER-BIONTECH) Amilcar Tamayo MD Work Phone: [facility] 07-10-2023 influenza (HD-IIV4) vaccine, age 65+ yr, high dose, quadrivalent, PF (FLUZONE HIGH-DOSE) Amilcar Tamayo MD Work Phone: [facility] 07-10-2023 influenza virus vacc ine, unspecified formulation Xr Heather Work Phone: [facility] 12-06-2022 tetanus toxoid, redu lindsey diphtheria toxoid, and acellular pertussis vaccine, adsorbed Brendavero Santizo TAPER OPERATOR.ELECTROMECHANISMS DESIGN DRAFTER Work Phone: [facility] Work Phone: 05-03-2022 COVID-19 booster vaccine, age 12+ yr, bivalent (PFIZER-BIONTECH) Brenda Santizo TAPER OPERATOR.ELECTROMECHANISMS DESIGN DRAFTER Work Phone: [facility] 05-03-2022 influenza, high-dose , quadrivalent vaccine (FLUZONE HIGH DOSE QUADRIVALENT) Brenda Santizo TAPER OPERATOR.ELECTROMECHANISMS DESIGN DRAFTER Work Phone: [facility] 05-03-2022 influenza virus vacc ine, unspecified formulation Branden Hickman MD Work Phone: [facility] 07-01-2021 COVID-19 original vaccine, age 12+ yr, monovalent (PFIZER-BIONTECH - PURPLE TOP) Brenda Santizo TAPER OPERATOR.ELECTROMECHANISMS DESIGN DRAFTER Work Phone: [facility] Work Phone: 11-10-2020 Covid (Pfizer) Dr. Amilcar adler Work Phone: [facility] Work Phone: 10-20-2020 Covid (Pfizer) Dr. Amilcar adler Work Phone: [facility] Work Phone: 05-13-2018 influenza, high dose seasonal, preservative-free Branden Hickman MD Work Phone: [facility] 05-26-2017 influenza, high dose seasonal, preservative-free Branden Hickman MD Work Phone: [facility] 05-09-2016 influenza, high dose seasonal, preservative-free Branden Hickman MD Work Phone: [facility] 06-25-2015 pneumococcal conjuga te vaccine, 13 valent Branden Hickman MD Work Phone: [facility] 05-13-2015 influenza, high dose seasonal, preservative-free Branden Hickman MD Work Phone: [facility] 05-12-2014 influenza, seasonal, injectable Branden Hickman MD Work Phone: [facility] 05-07-2013 influenza virus vacc ine, unspecified formulation Branden Hickman MD Work Phone: [facility] 06-08-2012 tetanus toxoid, redu lindsey diphtheria toxoid, and acellular pertussis vaccine, adsorbed Branden Hickman MD Work Phone: [facility] 05-07-2012 influenza virus vacc ine, unspecified formulation Branden Hickman MD Work Phone: [facility] Work Phone: 05-07-2012 pneumococcal polysaccharide vaccine, 23 valent Branden Hickman MD Work Phone: [facility] Work Phone: 08-03-2009 novel influenza-H1N1 -09, preservative-free, injectable Branden Hickman MD Work Phone: [facility] Work Phone: 07-13-2009 novel influenza-H1N1 -09, all formulations Branden Hickman MD Work Phone: [facility] 05-11-2009 influenza virus vacc ine, unspecified formulation Branden Hickman MD Work Phone: [facility] 06-13-2008 influenza virus vacc ine, whole virus Branden Hickman MD Work Phone: [facility] Work Phone: 12-11-2007 zoster vaccine, live Branden Hickman MD Work Phone: [facility] 06-05-2007 influenza virus vacc ine, unspecified formulation Branden Hickman MD Work Phone: [facility] Work Phone: 07-25-2006 pneumococcal polysaccharide vaccine, 23 valent Branden Hickman MD Work Phone: [facility] Work Phone: 02-08-2001 tetanus and diphther ia toxoids, not adsorbed, for adult use Branden Hickman MD Work Phone: [facility] Payers Date Payer Category Payer Self-pay [id number] 2017 Private Health Insurance HUMANA HU[employer] MEDICARE SUPPLEMENT [id number] 2017-Present [phone] [address] [address] [place] [address] Indemnity [id number] 2017 Private Health Insurance [id number] 2017 Private Health Insurance [id number] 2015 Unknown [id number] 2008 Medicare MEDICARE MEDICAR E A AND B [id number] 2008-Present [phone] [place] [address] Medicare [id number] 2008 Medicare [id number] 2008 Medicare [id number] Unknown [id number] Unknown [id number] Unknown [id number] Unknown [id number] Unknown [id number] Unknown [id number] Unknown [id number] Social History Date Type Detail Facility Start: 08-13-2021 End: 09-05-2023 Tobacco smoking status OKIS Unknown if ever smoked [facility] Start: 05-10-2018 None [facility] Start: 05-10-2018 Spouse/ Significant Other [facility] Start: 11-26-2018 Non-smoker [facility] Start: 1945 Sex Assigned At Male [facility] Start: 05-03-2022 End: 04-30-2024 Tobacco smoking status NHIS Ex-smoker [facility] Start: 07-23-1961 End: 07-23-1986 History of tobacco use Current smoker [facility] Start: 07-23-1961 End: 07-23-1986 History of tobacco use Cigarette Smoker [facility] Start: 06-11-2021 End: 01-20-2025 Alcohol intake Current drinker of alcohol (finding) [facility] Start: 06-11-2021 End: 06-12-2023 Alcohol intake [facility] Start: 01-13-2021 History SDOH Alcohol Frequency 1 [facility] Start: 07-30-2007 History SDOH Alcohol Comment 4-5 beers a year [facility] Start: 01-13-2021 History SDOH Social Connections Phone 2 [facility] Start: 01-13-2021 History SDOH Social Connections Meetings 3 [facility] Start: 01-13-2021 History SDOH Social Connections Living 4 [facility] Start: 01-13-2021 History SDOH Physical Activity DPW 6 [facility] Start: 01-13-2021 History SDOH Financial 5 [facility] Start: 01-13-2021 Education 21 [facility] Start: 05-03-2022 End: 04-30-2024 Tobacco use and exposure Smokeless tobacco non-user [facility] Start: 04-18-2022 End: 06-13-2022 Exposure to SARS-CoV-2 (event) Not sure [facility] Work Phone: Start: 01-13-2021 End: 06-12-2023 Social connection and isolation panel [facility] Do you belong to any clubs or organizations such as buddhist groups, unions, fraternal or athletic groups, or school groups? Yes [facility] Are you now , , , , never or living with a partner? [facility] How often to you hav e a drink containing alcohol? Never [facility] Start: 07-15-2012 Average Number of Drinks [facility] Do you feel stress - tense, restless, nervous, or anxious, or unable to sleep at night because your mind is troubled all the time - these days [OSQ] Not at all [facility] (I/We) worried wheth er (my/our) food would run out before (I/we) got money to buy more. Never true [facility] In the past 12 month s, was there a time when you were not able to pay the mortgage or rent on time? No [facility] Start: 02-17-2020 Gender identity Identifies as male gender (finding) [facility] Start: 02-17-2020 Sexual orientation Heterosexual (finding) [facility] How often to you hav e a drink containing alcohol? Monthly or less [facility] Goals Date Patient Goal Desired Activity /State Personal health goal Functional Status Date Assessment Result Facility 05-15-2018 Are you deaf, or do you have serious difficulty hearing No 05/15/2018 1:16 PM Destiney Wheeler (Rn)(Hist), RN No [facility] 05-15-2018 Are you blind, or do you have serious difficulty seeing, even when wearing glasses No 05/15/2018 1:16 PM Destiney Wheeler)(Hist), RN No [facility] 05-15-2018 Do you have serious difficulty walking or climbing stairs No 05/15/2018 1:16 PM Destiney Wheeler (Rn)(Hist), RN No [facility] 05-15-2018 Do you have difficul ty dressing or bathing No 05/15/2018 1:16 PM Destiney Wheeler (Rn)(Hist), RN No [facility] 05-15-2018 Because of a physica l, mental, or emotional condition, do you have difficulty doing errands alone such as visiting a physician's office or shopping No 05/15/2018 1:16 PM Destiney Wheeler (Sita)(Hist), RN No [facility] Mental Status Date Assessment Result Facility 05-15-2018 Because of a physica l, mental, or emotional condition, do you have serious difficulty concentrating, remembering, or making decisions No 05/15/2018 1:16 PM Destiney Wheeler (Sita)(Hist), RN No [facility] Clinical Notes 05-12-2018 to 04-02-2025 Roosevelt Cam RN - 04/02/2025 3:10 PM EDTPatient InstructionsAmilcar Tamayo MD - 01/20/2025 10:03 AM EDTTelephone Encounter - Jasmina Urban LPN - 12/17/2024 1:35 PM EDTPatient Instructions Note Date & Type Note Facility 04-02-2025 Note HNO ID: [id number] Author: ROOSEVELT CAM RN Service: ? Author Type: Registered Nurse Type: Progress Notes Filed: 04/02/2025 15:11 Note Text: Value Based Care Coordination Chart Review Provider Action / FYI: Upon review of patient chart, the patient is excluded from Chronic Disease Management Patient is not a candidate for CDM at this time and placed in the following status: Deferred Action taken: No action needed . Roosevelt Cam RN April 02, 2025 3:10 PM [facility] 04-02-2025 History of Present illness Narrative Value Based Care Coordination Chart Review Provider Action / FYI: Upon review of patient chart, the patient is excluded from Chronic Disease Management Patient is not a candidate for CDM at this time and placed in the following status: Deferred Action taken: No action needed . Roosevelt Cam RN April 02, 2025 3:10 PM documented in this encounter [facility] 04-02-2025 Note Patient Outreach (AM BC) MARSHAL CARRILLO ([id number]) 1945 M Date Time Provider Department 04/02/[facility] [place] [place] During your visit today, we recorded the following information about you: Roosevelt Cam RN 04/02/2025 3:11 PM Signed Value Based Care Coordination Chart Review Provider Action / FYI: Upon review of patient chart, the patient is excluded from Chronic Disease Management Patient is not a candidate for CDM at this time and placed in the following status: Deferred Action taken: No action needed . 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 - rosuvastatin (CRESTOR) 40 mg tablet Take 1 tablet by mouth daily at bedtime. - metoprolol succinate ER (TOPROL XL) 25 mg 24 hr tablet Take 1 tablet by mouth once daily. - ezetimibe (ZETIA) 10 mg tablet Take 1 tablet by mouth once daily. - clopidogrel (PLAVIX) 75 mg tablet Take 1 tablet by mouth once daily. - nitroglycerin sublingual (NITROSTAT) 0.4 mg SL tablet Dissolve 1 tablet under the tongue as needed for chest pain. If no pain relief call 911. - coenzyme Q10 (COENZYME Q-10) 100 mg cap capsule Take 100 mg by mouth once daily. - Lutein 6 mg ORAL Cap Take one(1) tablet daily. Problem List As Of Date 04/02/2025 Noted Resolved Mixed hyperlipidemia [E78.2] 03/22/2005 ANKLE ENTHESOPATHY NOS [M77.50] 03/22/2005 Coronary atherosclerosis [I25.10] 07/30/2007 Essential hypertension [I10] 11/06/2008 Tobacco Use Disorder [F17.200] 11/06/2008 12/25/2009 Old myocardial infarction [I25.2] 04/05/2011 History of ventricular tachycardia [Z86.79] 04/05/2011 08/02/2017 PVC (premature ventricular contraction) [I49.3] 04/05/2011 Postsurgical aortocoronary bypass status [Z95.1]04/05/2011 08/02/2017 S/P drug eluting coronary stent placement [Z95.*12/02/2014 S/P CABG (coronary artery bypass graft) [Z95.1] 12/02/2014 Hypertension [I10] 12/02/2014 01/23/2018 Chronic idiopathic thrombocytopenia (HCC) [D69.*02/23/2018 BCC (basal cell carcinoma of skin) [C44.91] 02/23/2018 Basal cell carcinoma of left lower eyelid [C44.*02/28/2018 Hematemesis [K92.0] 05/12/2018 05/15/2018 Peptic ulcer [K27.9] 05/29/2018 Atherosclerosis of [place] coronary artery of na*06/07/2019 Pure hypercholesterolemia [E78.00] 06/07/2019 Ventricular tachycardia (HCC) [I47.20] 12/06/2022 12/06/2022 Idiopathic pulmonary fibrosis (HCC) [J84.112] 07/01/2024 Encounter Status:Closed by ROOSEVELT CAM on 04/02/25 [facility] 01-20-2025 Instructions Amilcar Tamayo MD - 01/20/2025 10:16 AM EDT - Continue your Ofev (nintedanib) as prescribed to help keep your idiopathic pulmonary fibrosis stable. - Continue Protonix daily to prevent acid reflux and protect your stomach lining. - Keep your protein intake up to support healthy albumin levels. - Get a complete blood count (CBC) drawn per today s lab order to check your hemoglobin and hematocrit. - Maintain your regular walking routine (about 2 miles on flat terrain) to support your lung health. - RSV vaccine declined today; consider getting it this fall when available for those over 75. - COVID booster declined today; you can revisit this option in the fall if you decide to receive one. - Advanced directives from 2017 are on file and require no updates. - Attend your scheduled CT scan and follow-up appointment with Dr. Chester in May. - Schedule a combined Medicare annual wellness visit and regular checkup within the next 6 months; [facility] will contact you to set this up. documented in this encounter [facility] 01-20-2025 Note HNO ID: [id number] Author: AMILCAR TAMAYO MD Service: ? Author Type: Physician Type: Progress Notes Filed: 01/20/2025 10:18 Note Text: This note was created using NoteWriter. Jas Balbuena Gerardo is a 79 year old male. Patient presents with: F/U 6 Month Roscoe Carrillo is a 79-year-old male with a history of idiopathic pulmonary fibrosis, presenting for a 6-month follow-up visit. Roscoe reports a recent diagnosis of idiopathic pulmonary fibrosis, which has necessitated modifications to his outdoor activities. He experiences dyspnea when walking on inclines but can ascend a flight of stairs at home without difficulty. 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 He is not currently using supplemental oxygen and hopes to avoid it for as long as possible. He is currently taking Ofev for his condition. Last night, Roscoe experienced nausea after consuming meals in an unusual order while visiting his sister. He attempted to induce emesis but was unsuccessful. He requests a hemoglobin test due to a history of a bleeding ulcer 6-7 years ago, which resulted in significant hematemesis and hospitalization. He is concerned about a potential recurrence of the ulcer. He is currently taking Protonix and reports occasional heartburn at night if he discontinues the medication. He denies any current symptoms of melena or hematemesis. PAST MEDICAL HISTORY Diagnosis Date Cardiac dysrhythmia, unspecified 07/30/2007 history of paroxysmal atrial and ventricular complexes and nonsustained ventricular tachycardia Coronary atherosclerosis of unspecified type of vessel, [place] or graft 07/30/2007 [place] Date: 1985. 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 Latif Ventricular tachycardia (HCC) 12/06/2022 Current Outpatient Medications Medication Sig nintedanib (OFEV) 150 mg capsule TAKE 1 CAPSULE BY MOUTH TWICE A DAY 12 HOURS APART WITH FOOD pantoprazole (PROTONIX) 20 mg tablet Take 1 tablet by mouth once daily. rosuvastatin (CRESTOR) 40 mg tablet Take 1 tablet by mouth daily at bedtime. metoprolol succinate ER (TOPROL XL) 25 mg 24 hr tablet Take 1 tablet by mouth once daily. ezetimibe (ZETIA) 10 mg tablet Take 1 tablet by mouth once daily. clopidogrel (PLAVIX) 75 mg tablet Take 1 tablet by mouth once daily. nitroglycerin sublingual (NITROSTAT) 0.4 mg SL tablet Dissolve 1 tablet under the tongue as needed for chest pain. If no pain relief call 911. coenzyme Q10 (COENZYME Q-10) 100 mg cap capsule Take 100 mg by mouth once daily. Lutein 6 mg ORAL Cap Take one(1) tablet daily. No current facility-administered medications for this visit. Review of Systems Objective BP 115/65 Pulse (!) 59 Resp 16 Wt 75 kg (165 lb 5.5 oz) BMI 22.42 kg/m? Last 5 Encounter Wt Readings: Date: Wt: 01/20/2025 75 kg (165 lb 5.5 oz) 01/13/2025 77.1 kg (170 lb) 12/31/2024 76.7 kg (169 lb) 08/28/2024 79.8 kg (176 lb) 07/08/2024 79.8 kg (176 lb) No waist measurement recorded Estimated body mass index is 22.42 kg/m? as calculated from the following: Height as of 07/08/24: 182.9 cm (6'). Weight as of this encounter: 75 kg (165 lb 5.5 oz). Last 5 Encounter BP Readings: Date: BP: 01/20/2025 115/65 07/08/2024 153/73 07/01/2024 138/54 05/28/2024 120/65 01/09/2024 110/68 Physical Exam Vitals reviewed. Constitutional: Appearance: Normal appearance. Eyes: Conjunctiva/sclera: Conjunctivae normal. Cardiovascular: Rate and [...] Content: Thought content normal. Judgment: Judgment normal. Latest Ref Rng 06/12/2023 07/10/2023 05/29/2024 10/29/2024 01/13/2025 Protein, Total 6.3 - 8.0 g/dL 6.6 6.9 6.5 Albumin 3.9 - 4.9 g/dL 3.9 4.0 3.8 (L) Calcium 8.5 - 10.2 mg/dL 9.3 9.2 9.0 9.2 Bilirubin, Total 0.2 - 1.3 mg/dL 1.2 0.5 0.5 Alkaline Phosphatase 38 - 113 U/L 64 53 47 AST 14 - 40 U/L 24 29 35 AL (more content not included)... [facility] 01-20-2025 History of Present illness Narrative This note was created using Crowdtap. Subjective Marshal Carrillo is a 79 year old male. Patient presents with: F/U 6 Month Roscoe Carrillo is a 79-year-old male with a history of idiopathic pulmonary fibrosis, presenting for a 6-month follow-up visit. Roscoe reports a recent diagnosis of idiopathic pulmonary fibrosis, which has necessitated modifications to his outdoor activities. He experiences dyspnea when walking on inclines but can ascend a flight of stairs at home without difficulty. 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 He is not currently using supplemental oxygen and hopes to avoid it for as long as possible. He is currently taking Ofev for his condition. Last night, Roscoe experienced nausea after consuming meals in an unusual order while visiting his sister. He attempted to induce emesis but was unsuccessful. He requests a hemoglobin test due to a history of a bleeding ulcer 6-7 years ago, which resulted in significant hematemesis and hospitalization. He is concerned about a potential recurrence of the ulcer. He is currently taking Protonix and reports occasional heartburn at night if he discontinues the medication. He denies any current symptoms of melena or hematemesis. PAST MEDICAL HISTORY Diagnosis Date Cardiac dysrhythmia, unspecified 07/30/2007 history of paroxysmal atrial and ventricular complexes and nonsustained ventricular tachycardia Coronary atherosclerosis of unspecified type of vessel, [place] or graft 07/30/2007 [place] Date: 1985. 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 Latif Ventricular tachycardia (HCC) 12/06/2022 Current Outpatient Medications Medication Sig nintedanib (OFEV) 150 mg capsule TAKE 1 CAPSULE BY MOUTH TWICE A DAY 12 HOURS APART WITH FOOD pantoprazole DR (PROTONIX) 20 mg tablet Take 1 tablet by mouth once daily. rosuvastatin (CRESTOR) 40 mg tablet Take 1 tablet by mouth daily at bedtime. metoprolol succinate ER (TOPROL XL) 25 mg 24 hr tablet Take 1 tablet by mouth once daily. ezetimibe (ZETIA) 10 mg tablet Take 1 tablet by mouth once daily. clopidogrel (PLAVIX) 75 mg tablet Take 1 tablet by mouth once daily. nitroglycerin sublingual (NITROSTAT) 0.4 mg SL tablet Dissolve 1 tablet under the tongue as needed for chest pain. If no pain relief call 911. coenzyme Q10 (COENZYME Q-10) 100 mg cap capsule Take 100 mg by mouth once daily. Lutein 6 mg ORAL Cap Take one(1) tablet daily. No current facility-administered medications for this visit. Review of Systems Objective BP 115/65 Pulse (!) 59 Resp 16 Wt 75 kg (165 lb 5.5 oz) BMI 22.42 kg/m Last 5 Encounter Wt Readings: Date: Wt: 01/20/2025 75 kg (165 lb 5.5 oz) 01/13/2025 77.1 kg (170 lb) 12/31/2024 76.7 kg (169 lb) 08/28/2024 79.8 kg (176 lb) 07/08/2024 79.8 kg (176 lb) No waist measurement recorded Estimated body mass index is 22.42 kg/m as calculated from the following: Height as of 07/08/24: 182.9 cm (6'). Weight as of this encounter: 75 kg (165 lb 5.5 oz). Last 5 Encounter BP Readings: Date: BP: 01/20/2025 115/65 07/08/2024 153/73 07/01/2024 138/54 05/28/2024 120/65 01/09/2024 110/68 Physical Exam Vitals reviewed. Constitutional: Appearance: Normal appearance. Eyes: Conjunctiva/sclera: Conjunctivae normal. Cardiovascular: Rate and [...] Content: Thought content normal. Judgment: Judgment normal. Latest Ref Rng 06/12/2023 07/10/2023 05/29/2024 10/29/2024 01/13/2025 Protein, Total 6.3 - 8.0 g/dL 6.6 6.9 6.5 Albumin 3.9 - 4.9 g/dL 3.9 4.0 3.8 (L) Calcium 8.5 - 10.2 mg/dL 9.3 9.2 9.0 9.2 Bilirubin, Total 0.2 - 1.3 mg/dL 1.2 0.5 0.5 Alkaline Phosphatase 38 - 113 U/L 64 53 47 AST 14 - 40 U/L 24 29 35 ALT 10 - 54 U/L 11 16 28 Glucose 74 - 99 mg/dL 98 100 (H) 97 80 BUN 9 - 24 mg/dL 14 12 12 12 Creatinine 0.73 - 1.22 mg/dL 0.88 0.91 0.83 0.86 Sodium 136 - 144 mmol/L 142 139 140 140 Potassium 3.7 - 5.1 mmol/L 4.7 4.2 4.3 3.8 Chloride 98 - 107 mmol/L 106 (H) 105 105 104 CO2 22 - 30 mmol/L 28 26 27 24 Anion Gap 8 - 15 mmol/L 8 (L) 8 8 12 eGFR >=60 mL/min/1.73m 87 85 88 87 WBC 3.70 - 11.00 k/uL 7.15 5.80 RBC 4.20 - 6.00 m/uL 4.74 4.82 Hemoglobin 13.0 - 17.0 g/dL 14.6 14.4 Hematocrit 39.0 - 51.0 % 45.0 44.9 MCV 80.0 - 100.0 fL 94.9 93.2 MCH 26.0 - 34.0 pg 30.8 29.9 MCHC 30.5 - 36.0 g/dL 32.4 32.1 RDW-CV 11.5 - 15.0 % 13.3 13.2 Platelet Count 150 - 400 k/uL 129 (L) 135 (L) MPV 9.0 - 12.7 fL 11.7 11.6 Absolute nRBC <0.01 k/uL <0.01 <0.01 Cholesterol, Total <200 mg/dL 149 147 Triglyceride <150 mg/dL 103 96 HDL Cholesterol >39 mg/dL 47 49 Non HDL Cholesterol <130 mg/dL 102 98 Fasting Time hrs 12 12 VLDL Cholesterol <30 mg/dL 21 19 TC:HDL Ratio <5.10 3.17 3.00 LDL Cholesterol, Calculated <100 mg/dL 81 79 LDL:HDL Ratio <2.54 1.72 1.61 Bilirubin, Direct <0.3 mg/dL 0.2 Magnesium 1.7 - 2.3 mg/dL 2.3 2.3 Phosphorus 2.7 - 4.8 mg/dL 2.6 (L) Legend: (H) High (L) Low Assessment and Plan # Nausea (R11.0) - Recent episode of nausea after altering meal routine; no emesis occurred. - Ordered CBC to evaluate hemoglobin levels due to history of bleeding ulcers. # Gastroesophageal reflux disease without esophagitis (K21.9) - Managed with Protonix; patient reports occasional heartburn if medication is missed. - Continue current Protonix regimen. # Essential hypertension (I10) - Blood pressure remains stable; no changes in management required. # History of bleeding ulcers (Z87.11) - Significant history of severe bleeding ulcers approximately 6-7 years ago. - No current signs of melena or hematemesis. - Ordered CBC to monitor hemoglobin levels. # Idiopathic pulmonary fibrosis (HCC) (J84.112) - Condition stable; patient reports dyspnea on exertion, particularly on hills, but can manage daily activities and short walks without supplemental oxygen. - Currently on Ofev; no recent adverse effects reported. - Recent pulmonary function tests show no significant changes; diffusion capacity issues noted but stable. - Next follow-up with mathematics department chair Dr. Chester in May, including a scheduled CT scan. # Encounter for long-term current use of medication (Z79.899) - Continues on Ofev for idiopathic pulmonary fibrosis management. - Continues on Protonix for GERD management. # Encounter for immunization (Z23) - Discussed RSV vaccine; recommended consideration in the fall due to lung condition. - COVID-19 vaccine up to date as of June; next dose to be considered in the fall. - Shingles vaccine previously administered. # Chronic idiopathic thrombocytopenia (HCC) (D69.3) -Stable around 130s--will update today with CBC. Low since had IA. Amilcar Tamayo MD Recording using Ookbee software for draft documentation of the visit was discussed with the patient/authorized motor vehicle field representative; all questions welcomed and answered. Patient/authorized motor vehicle field representative agreed to proceed documented in this encounter [facility] 12-31-2024 Note HNO ID: [id number] Author: HOMA COLEMAN APRN.[employer] Service: ? Author Type: Nurse Practitioner Type: Progress Notes Filed: 12/31/2024 17:53 Note Text: Pulmonary Medicine Patients name: Marshal Malhotra PCP: Amilcar Tamayo MD CC: follow-up HPI: Marshal Carrillo is a 79 year old male former 25 pack year smoker, quitting in 1985 with PMH significant for CAD s/p CABG/stents, HLD, VT, PUD with GIB, and IPF. Current therapy consists of OFEV. He presents today for follow-up. [facility] 08/2024. He has been on Ofev for approximately 5 months and has tolerated it well. Denies concerns with diarrhea, nausea. He has noticed a decrease in appetite and has lost 7lbs over the past few months. Since his last visit, he notes a subtle decline in exertional activity. He consistently walks 1.5-2 miles per day but has noted feeling more winded on the last half mile. Also has noticed exertional dyspnea with yard work/mowing when this wasn't a concern prior. Continues to deny coughing, wheezing or chest tightness. Has thick phelgm in his throat and rhinorrhea despite normal allergy testing. No fevers, chills, or night sweats. No recent hospitalizations or ED visits or upper respiratory infections. PAST MEDICAL HISTORY Diagnosis Date Cardiac dysrhythmia, unspecified 07/30/2007 history of paroxysmal atrial and ventricular complexes and nonsustained ventricular tachycardia Coronary atherosclerosis of unspecified type of vessel, [place] or graft 07/30/2007 [place] Date: 1985. 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 Latif Ventricular tachycardia (HCC) 12/06/2022 Allergies: No Known Allergies Medication List Accurate as of December 30, 2024 2:50 PM. If you have any questions, ask your nurse or doctor. CONTINUE taking these medications clopidogrel 75 mg tablet Commonly known as: PLAVIX Take 1 tablet by mouth once daily. coenzyme Q10 100 mg Cap capsule Commonly known as: COENZYME Q-10 ezetimibe 10 mg tablet Commonly known as: ZETIA Take 1 tablet by mouth once daily. lutein 6 mg Cap metoprolol succinate ER 25 mg 24 hr tablet Commonly known as: TOPROL XL Take 1 tablet by mouth once daily. nitroglycerin sublingual 0.4 mg SL tablet Commonly known as: NITROSTAT Dissolve 1 tablet under the tongue as needed for chest pain. If no pain relief call 911. OFEV 150 mg capsule Generic drug: nintedanib TAKE 1 CAPSULE BY MOUTH TWICE A DAY 12 HOURS APART WITH FOOD pantoprazole DR 20 mg tablet Commonly known as: PROTONIX Take 1 tablet by mouth once daily. rosuvastatin 40 mg tablet Commonly known as: CRESTOR Take 1 tablet by mouth daily at bedtime. DATA: I personally reviewed and analyzed all labs, radiographs and available pulmonary function testing PFT: 04/2024 Spirometry is normal. Minimal reduction in diffusion that corrects for alveolar volume. CXR: Last XR Chest - Impression Only XR CHEST 2V FRONTAL/LAT Exam End: 04/30/2024 12:18 PM (Final result) Impression: IMPRESSION: Findings as described above are most consistent with chronic interstitial disease. No superimposed acute process Conveyor System Operator: PSCB Transcribe Date/Time: Apr 30 2024 4:22P... CT Chest: 05/2024 IMPRESSION: 1. Bilateral reticular opacities in a prominently peripheral and lower lung distribution with interstitial lung disease 2. There is a 4 mm nodule in the anterior left upper lobe 3. No thoracic lymphadenopathy Conveyor System Operator: PSCB Transcribe Date/Time: May 21 2024 12:42P Dictated by : KANDY MOTA MD This examination was interpreted and the report reviewed and electronically signed by: KANDY MOTA MD on May 21 2024 1:33PM EST Results-Findings * * *Final Report* * * DATE OF EXAM: May 16 2024 10:15AM [facility] 0541 - CT CHEST WO IVCON / PROCEDURE REASON: Interstitial pulmonary disease (HCC) * * * * Physician Interpretation * * * * EXAMINATION: CHEST CT WITHOUT CONTRAST CLINICAL HISTORY: Interstitial pulmonary disease Technique: Spiral CT acquisition of the chest from the thoracic inlet to the upper abdomen without contrast. MQ: CTCWO_6 CT Radiation dose: Integrated Dose-length product (DLP) for this visit = 233 mGy*cm CT Dose Reduction Employed: Automated exposure control(AEC) and iterative recon Comparison: No prior CT chest is available for comparison RESULT: Limitations: None. Lines (more content not included)... [facility] 12-17-2024 Telephone encounter Note JACEY 08/28/24 Patient phones requesting refills as follows: Requested Prescriptions Pending Prescriptions Disp Refills OFEV 150 mg capsule [Pharmacy Med Name: OFEV 150MG Capsule] 60 capsule 5 Sig: TAKE 1 CAPSULE BY MOUTH TWICE A DAY 12 HOURS APART WITH FOOD Please review and advise. Jasmina Urban LPN [facility] 12-17-2024 Miscellaneous Notes [facility] 08/28/24 Patient phones requesting refills as follows: Requested Prescriptions Pending Prescriptions Disp Refills OFEV 150 mg capsule [Pharmacy Med Name: OFEV 150MG Capsule] 60 capsule 5 Sig: TAKE 1 CAPSULE BY MOUTH TWICE A DAY 12 HOURS APART WITH FOOD Please review and advise. Jasmina Urban LPN documented in this encounter [facility] 08-28-2024 History of Present illness Narrative Images from the original note were not included. Pulmonary Medicine Patients name: Marshal Malhotra PCP: Amilcar Tamayo MD CC: IPF follow-up HPI: Marshal Carrillo is a 78 year old male former 25 pack year smoker, quitting in 1985 with PMH significant for CAD s/p CABG/stents, HLD, VT, PUD with GIB, and IPF. Current therapy consists of OFEV. He presents today for follow-up. [facility] 05/28/24 and was started on OFEV. Has been taking OFEV for 6 weeks, tolerating well with no side effects. Continues to walk daily, 1.5-2 miles daily. Denies further functional decline. Current respiratory symptoms include continued daily productive cough with white sputum. Has significant rhinorrhea and PND which he feels like contributes to cough symptoms. Symptoms are worse in the summer when out mowing. Also concerned for dust mites. Never been allergy tested. No hemoptysis. No wheezing. No dyspnea at rest. Exertional dyspnea with heavy activity. No fevers, chills, or night sweats. No unintended weight loss. No recent hospitalizations or ED visits or upper respiratory infections. Has not been monitoring SPO2 as frequently at home. PAST MEDICAL HISTORY Diagnosis Date Cardiac dysrhythmia, unspecified 07/30/2007 history of paroxysmal atrial and ventricular complexes and nonsustained ventricular tachycardia Coronary atherosclerosis of unspecified type of vessel, [place] or graft 07/30/2007 [place] Date: 1985. 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 Latif Ventricular tachycardia (HCC) 12/06/2022 Allergies: No Known Allergies Medication List Accurate as of August 23, 2024 2:13 PM. If you have any questions, ask your nurse or doctor. CONTINUE taking these medications clopidogrel 75 mg tablet Commonly known as: PLAVIX Take 1 tablet by mouth once daily. coenzyme Q10 100 mg Cap capsule Commonly known as: COENZYME Q-10 ezetimibe 10 mg tablet Commonly known as: ZETIA Take 1 tablet by mouth once daily. lutein 6 mg Cap metoprolol succinate ER 25 mg 24 hr tablet Commonly known as: TOPROL XL Take 1 tablet by mouth once daily. nintedanib 150 mg capsule Commonly known as: OFEV Take 1 capsule by mouth every 12 hours. nitroglycerin sublingual 0.4 mg SL tablet Commonly known as: NITROSTAT Dissolve 1 tablet under the tongue as needed for chest pain. If no pain relief call 911. pantoprazole DR 20 mg tablet Commonly known as: PROTONIX Take 1 tablet by mouth once daily. rosuvastatin 40 mg tablet Commonly known as: CRESTOR Take 1 tablet by mouth daily at bedtime. DATA: I personally reviewed and analyzed all labs, radiographs and available pulmonary function testing Oximetry with Ambulation: 05/2024 PFT: 04/2024 Spirometry is normal. Minimal reduction in diffusion that corrects for alveolar volume. CXR: Last XR Chest - Impression Only XR CHEST 2V FRONTAL/LAT Exam End: 04/30/2024 12:18 PM (Final result) Impression: IMPRESSION: Findings as described above are most consistent with chronic interstitial disease. No superimposed acute process Conveyor System Operator: PAMELA Transcribe Date/Time: Apr 30 2024 4:22P... CT Chest: 05/2024 IMPRESSION: 1. Bilateral reticular opacities in a prominently peripheral and lower lung distribution with interstitial lung disease 2. There is a 4 mm nodule in the anterior left upper lobe 3. No thoracic lymphadenopathy Conveyor System Operator: PSCB Transcribe Date/Time: May 21 2024 12:42P Dictated by : KANDY MOTA MD This examination was interpreted and the report reviewed and electronically signed by: KANDY MOTA MD on May 21 2024 1:33PM EST Results-Findings * * *Final Report* * * DATE OF EXAM: May 16 2024 10:15AM [facility] 0541 - CT CHEST WO IVCON / PROCEDURE REASON: Interstitial pulmonary disease (HCC) * * * * Physician Interpretation * * * * EXAMINATION: CHEST CT WITHOUT CONTRAST CLINICAL HISTORY: Interstitial pulmonary disease Technique: Spiral CT acquisition of the chest from the thoracic inlet to the upper abdomen without contrast. MQ: CTCWO_6 CT Radiation dose: Integrated Dose-length product (DLP) for this visit = 233 mGy*cm CT Dose Reduction Employed: Automated exposure control(AEC) and iterative recon Comparison: No prior CT chest is available for comparison RESULT: Limitations: None. Lines, tubes, and devices: None. Lung parenchyma and airways: Bilateral reticular opacities in a predominantly peripheral and lower lung distribution with associated architectural distortion and bronchiectasis/bronchiolectasis. Bilateral lower lobe honeycombing. 4 mm nodule anterior left upper lobe (11:89). No acute airspace disease. Central airways are patent. Pleural space: No pleural effusion. No pleural thickening. Lower neck, lymph nodes, and mediastinum: The imaged thyroid gland is normal. No lymphadenopathy in the supraclavicular, axillary, mediastinal, or hilar regions. Calcified mediastinal and hilar lymph nodes consistent with remote granulomatous disease. Heart, pericardium, and thoracic vessels: The thoracic aorta and main pulmonary artery are normal in caliber. The cardiac chambers are normal in size. Postoperative changes from CABG. Coronary artery atherosclerotic calcifications are noted, although the study is not optimized for coronary assessment. No pericardial effusion or thickening. Bones and soft tissues: No destructive bone lesion. Chest wall is unremarkable. Upper abdomen: No acute abnormality in the imaged upper abdomen. Calcified splenic granulomas. Localizer images: No additional findings. IMMUNIZATIONS Prevnar - xx Pneumovax 23 - xx Influenza - 07/01/2024 COVID-19 - 07/01/2024 RSV- xx Review of Systems Constitutional: Negative for activity change, appetite change and unexpected weight change. HENT: Positive for postnasal drip and rhinorrhea. Negative for congestion and sinus pressure. Respiratory: Positive for cough. Negative for chest tightness, shortness of breath and wheezing. Cardiovascular: Negative for chest pain, palpitations and leg swelling. Musculoskeletal: Negative for arthralgias and myalgias. Neurological: Negative for weakness, light-headedness and headaches. BP (P) 132/66 Pulse (!) 56 Wt 79.8 kg (176 lb) SpO2 92% BMI 23.87 kg/m Physical Exam Vitals reviewed. Constitutional: General: He is not in acute distress. Appearance: Normal appearance. HENT: Head: Normocephalic. Nose: No congestion or rhinorrhea. Mouth/Throat: Mouth: Mucous membranes are moist. Pharynx: No oropharyngeal exudate. Cardiovascular: Rate and Rhythm: Normal rate and regular rhythm. Heart sounds: Normal heart sounds. Pulmonary: Effort: Pulmonary effort is normal. No respiratory distress. Breath sounds: No wheezing or rhonchi. Musculoskeletal: Right lower leg: No edema. Left lower leg: No edema. Skin: General: Skin is warm and dry. Capillary Refill: Capillary refill takes less than 2 seconds. Neurological: General: No focal deficit present. Mental Status: He is alert. ASSESSMENT/PLAN: 1. IPF (idiopathic pulmonary fibrosis) (HCC) - ICD9: 516.31, ICD10: J84.112 (primary diagnosis) - currently with stable symptoms - Tolerating OFEV - Due for hepatic and renal function testing in 6 weeks - close monitoring for need for supplemental oxygen. Patient to continue self monitoring. - surveillance CT in May 2025 2. Allergic rhinitis, unspecified seasonality, unspecified trigger - ICD9: 477.9, ICD10: J30.9 3. Rhinorrhea - ICD9: 478.19, ICD10: J34.89 - allergy testing - PRN antihistamines - [facility] [place] [facility] - IMMUNOGLOBULIN E F/u 3-4 months Portions of this documentation were copied and pasted from previous office visit notes in order to provide a cohesive continuity of the history. The note has been reviewed and edited and updated as necessary. Homa Coleman APRN.JULIA I spent a total of 29 minutes on the date of the service which included preparing to see the patient, [id number]-[id number] patient care, completing clinical documentation, performing a medically appropriate examination, counseling and educating the patient/family/caregiver, and ordering medications, tests, or procedures. documented in this encounter [facility] 08-28-2024 Note HNO ID: [id number] Author: HOMA COLEMAN APRN.JULIA Service: ? Author Type: Nurse Practitioner Type: Progress Notes Filed: 08/28/2024 13:10 Note Text: Pulmonary Medicine Patients name: Marshal Malhotra PCP: Amilcar Tamayo MD CC: IPF follow-up HPI: Marshal Carrillo is a 78 year old male former 25 pack year smoker, quitting in 1985 with PMH significant for CAD s/p CABG/stents, HLD, VT, PUD with GIB, and IPF. Current therapy consists of OFEV. He presents today for follow-up. JACEY 05/28/24 and was started on OFEV. Has been taking OFEV for 6 weeks, tolerating well with no side effects. Continues to walk daily, 1.5-2 miles daily. Denies further functional decline. Current respiratory symptoms include continued daily productive cough with white sputum. Has significant rhinorrhea and PND which he feels like contributes to cough symptoms. Symptoms are worse in the summer when out mowing. Also concerned for dust mites. Never been allergy tested. No hemoptysis. No wheezing. No dyspnea at rest. Exertional dyspnea with heavy activity. No fevers, chills, or night sweats. No unintended weight loss. No recent hospitalizations or ED visits or upper respiratory infections. Has notbeen monitoring SPO2 as frequently at home. PAST MEDICAL HISTORY Diagnosis Date Cardiac dysrhythmia, unspecified 07/30/2007 history of paroxysmal atrial and ventricular complexes and nonsustained ventricular tachycardia Coronary atherosclerosis of unspecified type of vessel, [place] or graft 07/30/2007 IA Date: 1985. 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 Latif Ventricular tachycardia (HCC) 12/06/2022 Allergies: No Known Allergies Medication List Accurate as of August 23, 2024 2:13 PM. If you have any questions, ask your nurse or doctor. CONTINUE taking these medications clopidogrel 75 mg tablet Commonly known as: PLAVIX Take 1 tablet by mouth once daily. coenzyme Q10 100 mg Cap capsule Commonly known as: COENZYME Q-10 ezetimibe 10 mg tablet Commonly known as: ZETIA Take 1 tablet by mouth once daily. lutein 6 mg Cap metoprolol succinate ER 25 mg 24 hr tablet Commonly known as: TOPROL XL Take 1 tablet by mouth once daily. nintedanib 150 mg capsule Commonly known as: OFEV Take 1 capsule by mouth every 12 hours. nitroglycerin sublingual 0.4 mg SL tablet Commonly known as: NITROSTAT Dissolve 1 tablet under the tongue as needed for chest pain. If no pain relief call 911. pantoprazole DR 20 mg tablet Commonly known as: PROTONIX Take 1 tablet by mouth once daily. rosuvastatin 40 mg tablet Commonly known as: CRESTOR Take 1 tablet by mouth daily at bedtime. DATA: I personally reviewed and analyzed all labs, radiographs and available pulmonary function testing Oximetry with Ambulation: 05/2024 PFT: 04/2024 Spirometry is normal. Minimal reduction in diffusion that corrects for alveolar volume. CXR: Last XR Chest - Impression Only XR CHEST 2V FRONTAL/LAT Exam End: 04/30/2024 12:18 PM (Final result) Impression: IMPRESSION: Findings as described above are most consistent with chronic interstitial disease. No superimposed acute process Conveyor System Operator: [facility] Transcribe Date/Time: Apr 30 2024 4:22P... CT Chest: 05/2024 IMPRESSION: 1. Bilateral reticular opacities in a prominently peripheral and lower lung distribution with interstitial lung disease 2. There is a 4 mm nodule in the anterior left upper lobe 3. No thoracic lymphadenopathy Conveyor System Operator: [facility] Transcribe Date/Time: May 21 2024 12:42P Dictated by : KANDY MOTA MD This examination was interpreted and the report reviewed and electronically signed by: KANDY MOTA MD on May 21 2024 1:33PM EST Results-Findings * * *Final Report* * * DATE OF EXAM: May 16 2024 10:15AM [facility] 0541 - CT CHEST WO IVCON / PROCEDURE REASON: Interstitial pulmonary disease (HCC) * * * * Physician Interpretation * * * * EXAMINATION: CHEST CT WITHOUT CONTRAST CLINICAL HISTORY: Interstitial pulmonary disease Technique: Spiral CT acquisition of the chest from the thoracic inlet to the upper abdomen without contrast. MQ: [id number] CT Radiation dose: Integrated Dose-length product (DLP) for this visit = 233 mGy*cm CT Dose Reduction Employed: Automated exposure control(AEC) and iterative recon Comparison: No prior CT chest is av (more content not included)... [facility] 07-08-2024 Note HNO ID: [id number] Author: BRANDEN HICKMAN MD Service: ? Author Type: Physician Type: Progress Notes Filed: 07/09/2024 18:03 Note Text: Heart, Vascular and Thoracic [facility] Department of Cardiovascular Medicine SECTION OF INTERVENTIONAL CARDIOLOGY OUTPATIENT VISIT DATE July 08, 2024 OUTPATIENT VISIT TYPE ESTABLISHED PRIMARY CARE PHYSICIAN: Amilcar Tamayo [address] [place] [address] REFERRING PHYSICIAN: Mauricio Hickman [address], Desk J2-3 [facility] [id number] CHIEF COMPLAINT: Patient presents with: Follow Up HISTORY OF PRESENT ILLNESS: Mr. Carrillo is a 78 year old male with CAD and prior CABG and PCI who presents today for follow-up visit. Since 05/2023, continued to have SOB. 04/30/2024 - Pulmonary evaluation (Dr. Chester) 1. ILD -Physical exam, chest x-ray findings and pulmonary function testing most consistent with pulmonary fibrosis -Chest CT. Results of chest CT will determine extent of further workup -Oxygen assessment 2. Former smoker -Former remote smoker without evidence of COPD -Continue abstinence 05/16/2024 - CT Chest 1. Bilateral reticular opacities in a prominently peripheral and lower lung distribution with interstitial lung disease 2. There is a 4 mm nodule in the anterior left upper lobe 3. No thoracic lymphadenopathy Feels his exercise tolerance has gradually declined since 2019, although stable since 2021. This was during a period when he was walking regularly. SHIELDS occurs on activity such as working over his head or after getting out of the shower. Also notes that he has SHIELDS on climbing hills or climbing more than 1 flight of stairs. But he is walking 2.5 miles daily over 40 minutes. He denies orthopnea, PND, palpitations, lightheadedness, syncope, and leg swelling. BP at home running 115-120s mm Hg. PAST CARDIAC HISTORY: 07/23/1986 - IA - symptoms were SOB after chasing a calf at work (at [employer]). 08/1986 - CABG - TORRES to LAD, [...] continued aspirin. 06/01/2018 - Stress Nuclear in [place] 7:00, Stage 3, 107% APMHR, 8 METS ECG - baseline RBBB, exercise 1-[address] depression in I, L, V2 Nuclear - mid inferoseptal/basal, mid inferior perfusion changes appearing compatible with an area of previous IA LVEF 59% 07/06/2018 - EGD as [facility] - healed gastric ulcers, no bleeding. 07/19/2018 - Capsule endoscopy - normal 06/07/2019 - saw me in [place] - Clopidogrel has not been restarted. No further GI bleeding. Hemoglobin now above 13 mg/dL. Exercise tolerance preserved. No chest pain or SOB. 06/08/2020 - saw me in [facility] - no ischemic symptoms. Saw GI th (more content not included)... [facility] 07-08-2024 History of Present illness Narrative Images from the original note were not included. Heart, Vascular and Thoracic [facility] Leyva Department of Cardiovascular Medicine SECTION OF INTERVENTIONAL CARDIOLOGY OUTPATIENT VISIT DATE July 08, 2024 OUTPATIENT VISIT TYPE ESTABLISHED PRIMARY CARE PHYSICIAN: Amilcar Tamayo [address] [place] [address] REFERRING PHYSICIAN: Mauricio Hickman [address], Desk J2-3 [facility] [id number] CHIEF COMPLAINT: Patient presents with: Follow Up HISTORY OF PRESENT ILLNESS: Mr. Carrillo is a 78 year old male with CAD and prior CABG and PCI who presents today for follow-up visit. Since 05/2023, continued to have SOB. 04/30/2024 - Pulmonary evaluation (Dr. Chester) 1. ILD -Physical exam, chest x-ray findings and pulmonary function testing most consistent with pulmonary fibrosis -Chest CT. Results of chest CT will determine extent of further workup -Oxygen assessment 2. Former smoker -Former remote smoker without evidence of COPD -Continue abstinence 05/16/2024 - CT Chest 1. Bilateral reticular opacities in a prominently peripheral and lower lung distribution with interstitial lung disease 2. There is a 4 mm nodule in the anterior left upper lobe 3. No thoracic lymphadenopathy Feels his exercise tolerance has gradually declined since 2018, although stable since 2021. This was during a period when he was walking regularly. SHIELDS occurs on activity such as working over his head or after getting out of the shower. Also notes that he has SHIELDS on climbing hills or climbing more than 1 flight of stairs. But he is walking 2.5 miles daily over 40 minutes. He denies orthopnea, PND, palpitations, lightheadedness, syncope, and leg swelling. BP at home running 115-120s mm Hg. PAST CARDIAC HISTORY: 07/23/1986 - IA - symptoms were SOB after chasing a calf at work (at [employer]). 08/1986 - CABG - TORRES to LAD, [...] continued aspirin. 06/01/2018 - Stress Nuclear in [place] 7:00, Stage 3, 107% APMHR, 8 METS ECG - baseline RBBB, exercise 1-[address] depression in I, L, V2 Nuclear - mid inferoseptal/basal, mid inferior perfusion changes appearing compatible with an area of previous [place] LVEF 59% 07/06/2018 - EGD as [facility] [...] 80 mg daily. 10/26/2021 - saw local environmental marketer in [place] who ordered repeat stress test for surveillance [...] x 2.6 cm Mid (level of renal arteries): 2.2 cm x 2.3 cm Distal: 1.7 cm x 1.8 cm Common Iliac Arteries (AP x TV): Right: 1.3 cm x 1.2 cm Left: 1.3 cm x 1.1 cm 06/27/2022 - Echocardiogram - The left ventricle is normal in size. There is mild concentric left ventricular hypertrophy. Left ventricular systolic function is normal. EF = 57 5% (2D biplane) Grade I left ventricular diastolic dysfunction. - The right ventricle is normal in size. Right ventricular systolic function is normal. - The left atrial cavity is mildly dilated. - There are no significant valvular abnormalities. 06/12/2023 - saw me in [facility] - Over the last summer or ~6 months, has noted SOB with odd things like working with arms above his head (putting up blinds) or unusual yardwork. Does not occur with regular walking 6 days per week, 2.5 mile in 40 minutes (4 mph), still unloads 25-45 cases (33 lbs) of wine without SOB. 07/11/2023 - Stress PET 1. PET Perfusion Study: Abnormal. 2. There is mild (<10%) ischemia in the territory of the LAD(basal septum). 3. There is evidence of a small (<10%) scar in the territory of the RCA. 4. Left ventricle is normal in size. The left ventricle systolic function is normal. 5. Right ventricle is normal in size. The right ventricle systolic function is normal. 6. This is a low risk scan. Gated Stress TOF:SC:CTAC Gated Rest TOF:SC:CTAC LVEF % 62 59 PAST MEDICAL HISTORY Diagnosis Date Cardiac dysrhythmia, unspecified 07/30/2007 history of paroxysmal atrial and ventricular complexes and nonsustained ventricular tachycardia Coronary atherosclerosis of unspecified type of vessel, [place] or graft 07/30/2007 IA Date: 1985. 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 Latif Ventricular tachycardia (HCC) 12/06/2022 PAST SURGICAL HISTORY Procedure Laterality Date ANGIOPLASTY 2001 1 angioplasty COLONOSCOPY FLX DX W/COLLJ SPEC WHEN PFRMD 09/14/2007 Very long/lax colon PAST SURGICAL HISTORY OF 1986 triple bypass surgery heart at [place] PAST SURGICAL HISTORY OF 2010 Squemous Cell- Face removed PAST SURGICAL HISTORY OF 2015- Dr Mclaughlin BCC face PAST SURGICAL HISTORY OF CABG bilateral jason, 1 vein graft REMV CATARACT EXTRACAP,INSERT LENS Bilateral STENTS (SPECIFY) 2001, 2014 3 stents SOCIAL HISTORY Social History Tobacco Use Smoking status: Former Current packs/day: 0.00 Average packs/day: 1 pack/day for 25.0 years (25.0 ttl pk-yrs) Types: Cigarettes Start date: 07/23/1961 Quit date: 07/23/1986 Years since quittin.9 Smokeless tobacco: Never Vaping Use Vaping status: Never Used Substance Use Topics Alcohol use: Yes Comment: 4-5 beers a year Drug use: No FAMILY HISTORY Problem Relation Age of Onset Heart Mother Coronary Artery Disease Mother age 66 Heart Father Coronary Artery Disease Father age 82 other (Aortic Aneurysm) Father AAA-- from complications of surgery for repair Diabetes Paternal Grandfather None Sister None Sister other (Aortic aneurysm) Paternal Uncle ALLERGIES: ALLERGIES No Known Allergies MEDICATIONS: Current Outpatient Medications Medication Sig pantoprazole DR (PROTONIX) 20 mg tablet Take 1 tablet by mouth once daily. rosuvastatin (CRESTOR) 40 mg tablet Take 1 tablet by mouth daily at bedtime. metoprolol succinate ER (TOPROL XL) 25 mg 24 hr tablet Take 1 tablet by mouth once daily. ezetimibe (ZETIA) 10 mg tablet Take 1 tablet by mouth once daily. clopidogrel (PLAVIX) 75 mg tablet Take 1 tablet by mouth once daily. nintedanib (OFEV) 150 mg capsule Take 1 capsule by mouth every 12 hours. nitroglycerin sublingual (NITROSTAT) 0.4 mg SL tablet Dissolve 1 tablet under the tongue as needed for chest pain. If no pain relief call 911. coenzyme Q10 (COENZYME Q-10) 100 mg cap capsule Take 100 mg by mouth once daily. Lutein 6 mg ORAL Cap Take one(1) tablet daily. No current facility-administered medications for this visit. REVIEW OF SYSTEMS: GENERAL: negative for: fevers, chills, and change in weight HEENT: negative for: headaches, hearing loss, difficulty swallowing, visual changes, nose bleeds, dentures, own teeth SKIN: rashes, lesions, and ulcers RESPIRATORY: SEE HPI CARDIOVASCULAR: See HPI GASTROINTESTINAL: negative for: abdominal pain, nausea, vomiting, difficulty or painful swallowing, and melanotic stools GENITOURINARY: negative for: dysuria, frequency, nocturia, and male potency MUSCULOSKELETAL: negative for: joint pain, joint swelling, muscle pain or myalgias, and pain with walking NEUROLOGIC: negative for: numbness, tingling, and sensation of pins and needles HEMATOLOGY: negative for: bruising easily, prolonged bleeding, anemia, and cancer ENDOCRINE: negative for: cold or heat intolerance, polyuria, polydipsia, goiter, diabetes, and thyroid disease PSYCH: negative for: sleep disturbance, mood disorders, and recent psychosocial stressors PHYSICAL EXAMINATION: BP 153/73 Pulse 74 Resp 18 Ht 6' 0 (1.83m) Wt 176 lb (79.8kg) SpO2 99[RA]% BMI 23.86 kg/(m^2). General appearance: well appearing, in no acute distress, alert Skin: skin color, texture, turgor normal, no rashes or lesions Head: normal Neck: neck supple, no adenopathy; thyroid symmetric, normal size Lungs: lungs clear to auscultation, no wheezing or rhonchi Heart: Carotids full without bruits. PMI non-displaced. RRR. Normal S1 and S2, without S3 or S4. No murmur or rubs. Abdomen: Normal abdominal exam, Abdomen soft, non-tender. Bowel sounds normal. No masses, organomegaly Extremities: Extremities normal. No deformities or skin discoloration. Good capillary refill. No edema. Peripheral pulses: Normal Neuro: Gait normal. Sensation and muscle strength grossly intact. CARDIOVASCULAR MEDICINE TESTING: Latest Ref Rng 05/29/2024 Protein, Total 6.3 - 8.0 g/dL 6.9 Albumin 3.9 - 4.9 g/dL 4.0 Calcium 8.5 - 10.2 mg/dL 9.2 Bilirubin, Total 0.2 - 1.3 mg/dL 0.5 Alkaline Phosphatase 38 - 113 U/L 53 AST 14 - 40 U/L 29 ALT 10 - 54 U/L 16 Glucose 74 - 99 mg/dL 100 (H) BUN 9 - 24 mg/dL 12 Creatinine 0.73 - 1.22 mg/dL 0.91 Sodium 136 - 144 mmol/L 139 Potassium 3.7 - 5.1 mmol/L 4.2 Chloride 98 - 107 mmol/L 105 CO2 22 - 30 mmol/L 26 Anion Gap 8 - 15 mmol/L 8 eGFR >=60 mL/min/1.73m 85 Cholesterol, Total <200 mg/dL 147 Triglyceride <150 mg/dL 96 HDL Cholesterol >39 mg/dL 49 Non HDL Cholesterol <130 mg/dL 98 Fasting Time hrs 12 VLDL Cholesterol <30 mg/dL 19 TC:HDL Ratio <5.10 3.00 LDL Cholesterol <100 mg/dL 79 LDL:HDL Ratio <2.54 1.61 Legend: (H) High I have personally reviewed the Laboratory Testing. IMPRESSION: Mr. Carrillo is a 78 year old male with CAD, prior CABG and PCI 1. CAD - S/p IA on 07/23/1986 S/p CABG x 3 in in 1986 (Dr. Rider)- TORRES to LAD, KAMLESH to RCA, SVG to diagonal S/p cath and PCI by me in 2001 - grafts patent, underwent bare metal stent placement to ungrafted LCX S/p cath and PCI by me on 12/02/2014 - grafts and multiple stents in LCX all patent. LMT with severe focal distal in-stent restenosis. Underwent PCI of the LMT in-stent restenosis with drug eluting stent. On clopidogrel monotherapy 2. Preserved LV function - normal by last echo 06/27/2022. 3. SHIELDS - gradually progressive. No apparent cardiac etiology. He is under evaluation by Pulmonary Medicine, with working diagnosis of interstitial lung disease. 4. Stress PET at [facility] on 07/11/2023 showing small area of basal anterior ischemia - this is consistent with ostial LAD occlusion with patent TORRES to mid LAD. 5. Hyperlipidemia - on rosuvastatin 40 mg, ezetimibe 10 mg daily. LDL not quite optimal at 79 mg/dL, with target for control <70 mg/dL. He states he is adherent to medications. 6. S/p upper GI bleed / gastric ulcers - 05/12/2018. No recurrence Followed by GI. On clopidogrel monotherapy - aspirin stopped. 7. HTN - elevated at 153/73 mm Hg, but sporadic measurements at home seem adequately controlled. 8. FHx aortic aneurysm - abdominal aortic ultrasound normal in 2017. No aortic root dilatation by echo 06/27/2022 (3.3 cm). Abdominal US 06/20/2022 showing minimal dilatation of the proximal abdominal aorta, no infrarenal abdominal aortic aneurysm. PLAN AND RECOMMENDATIONS: 1. Given that he has been clinically stable from cardiac standpoint with LDL slightly above target for several years, discussed but will not start [id number]. 2. Measure BP BID x 1 weeks and send to me by MyChart. Mauricio Hickman MD CONTACT INFORMATION: Mauricio Hickman M.D. Section of Interventional Cardiology Department of Cardiovascular Medicine Heart, Vascular, and Thoracic [facility] [address], [place] [address] Office - [phone] extension [phone] Office Appointments: [phone] -[phone] extension [phone] documented in this encounter [facility] 07-01-2024 Note HNO ID: [id number] Author: TALIB JUNG APRN.[employer]ET[employer]INARIAN Service: ? Author Type: Nurse Practitioner Type: Progress Notes Filed: 07/01/2024 11:58 Note Text: JAS Carrillo is a 78 year old male here today for a check up on his medical problems. Chief Complaint Patient presents with: F/U 6 months HPI Marshal Carrillo is a 78 year old male. He is an established patient of Amilcar Tamayo MD. Here today for a routine follow up. He has a history of GERD, HTN, CAD, HLD, thrombocytopenia. Last visit we did a work up for shortness of breath, he was referred to pulmonary and diagnosed with idiopathic pulmonary fibrosis. Following with [facility] pulmonary. Prescribed Ofev. Still walking 2.5 miles a day. Following with cardiology too. Dr. Hickman. His medications were reviewed today and his list is now up to date. Medications Current Outpatient Medications Medication Sig nintedanib (OFEV) 150 mg capsule Take 1 capsule by mouth every 12 hours. nitroglycerin sublingual (NITROSTAT) 0.4 mg SL tablet Dissolve 1 tablet under the tongue as needed for chest pain. If no pain relief call 911. coenzyme Q10 (COENZYME Q-10) 100 mg cap capsule Take 100 mg by mouth once daily. Lutein 6 mg ORAL Cap Take one(1) tablet daily. pantoprazole DR (PROTONIX) 20 mg tablet Take 1 tablet by mouth once daily. rosuvastatin (CRESTOR) 40 mg tablet Take 1 tablet by mouth daily at bedtime. metoprolol succinate ER (TOPROL XL) 25 mg 24 hr tablet Take 1 tablet by mouth once daily. ezetimibe (ZETIA) 10 mg tablet Take 1 tablet by mouth once daily. clopidogrel (PLAVIX) 75 mg tablet Take 1 tablet by mouth once daily. No current facility-administered medications for this visit. ALLERGIES No Known Allergies ACTIVE PROBLEM LIST Idiopathic Pulmonary Fibrosis (Hcc) - 07/01/2024 Atherosclerosis of [place] Coronary Artery of [place] Heart Without Angina Pectoris - 06/07/2019 Pure Hypercholesterolemia - 06/07/2019 Peptic Ulcer - 05/29/2018 Basal Cell Carcinoma of Left Lower Eyelid - 02/28/2018 Chronic Idiopathic Thrombocytopenia (Hcc) - 02/23/2018 Bcc (Basal Cell Carcinoma of Skin) - 02/23/2018 S/P Drug Eluting Coronary Stent Placement - 12/02/2014 Comment: D/c plavix Keep on ASA S/P Cabg (Coronary Artery Bypass Graft) - 12/02/2014 Old Myocardial Infarction - 04/05/2011 Comment: Dr [facility] Pvc (Premature Ventricular Contraction) - 04/05/2011 Comment: Dr [facility] Essential Hypertension - 11/06/2008 Comment: Creat 0.9 in 10-20, 1 in 04-22 Coronary Atherosclerosis - 07/30/2007 Comment: IA Date: 1985 CABG Date: 1986: TORRES-LAD, KAMLESH-RCA, SVG-Diag PCI 05-15 - stents in his ostial and proximal circumflex and in his obtuse marginal branch PTCA 05-15 - posterior lateral branch Cath 05-16:Patent SVG-Diag, TORRES-LAD, KAMLESH-RCA Bhavya 11-20: rec SPECT in 6 mo Mixed Hyperlipidemia - 03/22/2005 Comment: LDL 70, HDL 41, TG 94 in 10-20 LDL 80, HDL 43, TG 81 in 04-22 Enthesopathy of Ankle and Tarsus, 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 Respiratory: Negative. Cardiovascular: Negative. OBJECTIVE BP 138/54 Pulse 59 Wt 176 lb 2.4 oz (79.9kg) SpO2 93% Physical Exam Vitals and nursing note reviewed. Constitutional: General: He is awake. He is not in acute distress. Appearance: Normal appearance. He is well-developed and well-groomed. He is not ill-appearing, toxic-appearing or diaphoretic. HENT: Head: Normocephalic. Right Ear: External ear normal. Left Ear: External ear normal. Nose: Nose normal. Eyes: General: Vision grossly intact. Conjunctiva/sclera: Conjunctivae normal. Pupils: Pupils are equal, round, and reactive to light. Neck: Vascular: No JVD. Trachea: Trachea normal. Cardiovascular: Rate and Rhythm: Normal rate and regular rhythm. Pulses: Normal pulses. Heart sounds: Normal heart sounds. No murmur heard. Pulmonary: Effort: Pulmonary effort is normal. No accessory muscle usage, prolonged expiration or respiratory distress. Breath sounds: Normal breath sounds. Musculoskeletal: Cervical back: Neck supple. Skin: General: Skin is warm and dry. Capillary Refill: Capillary refill takes less than 2 seconds. Neurological: General: No focal deficit present. Mental Status: He is alert and oriented to person, place, and time. Mental status is at baseline. Psychiatric: Attention and Perception: Attention and perception normal. Mood and Affect: Mood and affect normal. Speech: Speech normal. Beh (more content not included)... [facility] 07-01-2024 History of Present illness Narrative SUBJECTIVE Marshal Carrillo is a 78 year old male here today for a check up on his medical problems. Chief Complaint Patient presents with: F/U 6 months HPI Marshal Carrillo is a 78 year old male. He is an established patient of Amilcar Tamayo MD. Here today for a routine follow up. He has a history of GERD, HTN, CAD, HLD, thrombocytopenia. Last visit we did a work up for shortness of breath, he was referred to pulmonary and diagnosed with idiopathic pulmonary fibrosis. Following with [facility] pulmonary. Prescribed Ofev. Still walking 2.5 miles a day. Following with cardiology too. Dr. Hickman. His medications were reviewed today and his list is now up to date. Medications Current Outpatient Medications Medication Sig nintedanib (OFEV) 150 mg capsule Take 1 capsule by mouth every 12 hours. nitroglycerin sublingual (NITROSTAT) 0.4 mg SL tablet Dissolve 1 tablet under the tongue as needed for chest pain. If no pain relief call 911. coenzyme Q10 (COENZYME Q-10) 100 mg cap capsule Take 100 mg by mouth once daily. Lutein 6 mg ORAL Cap Take one(1) tablet daily. pantoprazole DR (PROTONIX) 20 mg tablet Take 1 tablet by mouth once daily. rosuvastatin (CRESTOR) 40 mg tablet Take 1 tablet by mouth daily at bedtime. metoprolol succinate ER (TOPROL XL) 25 mg 24 hr tablet Take 1 tablet by mouth once daily. ezetimibe (ZETIA) 10 mg tablet Take 1 tablet by mouth once daily. clopidogrel (PLAVIX) 75 mg tablet Take 1 tablet by mouth once daily. No current facility-administered medications for this visit. ALLERGIES No Known Allergies ACTIVE PROBLEM LIST Idiopathic Pulmonary Fibrosis (Hcc) - 07/01/2024 Atherosclerosis of [place] Coronary Artery of [place] Heart Without Angina Pectoris - 06/07/2019 Pure Hypercholesterolemia - 06/07/2019 Peptic Ulcer - 05/29/2018 Basal Cell Carcinoma of Left Lower Eyelid - 02/28/2018 Chronic Idiopathic Thrombocytopenia (Hcc) - 02/23/2018 Bcc (Basal Cell Carcinoma of Skin) - 02/23/2018 S/P Drug Eluting Coronary Stent Placement - 12/02/2014 Comment: D/c plavix Keep on ASA S/P Cabg (Coronary Artery Bypass Graft) - 12/02/2014 Old Myocardial Infarction - 04/05/2011 Comment: Dr [facility] Pvc (Premature Ventricular Contraction) - 04/05/2011 Comment: Dr [facility] Essential Hypertension - 11/06/2008 Comment: Creat 0.9 in 10-20, 1 in 04-22 Coronary Atherosclerosis - 07/30/2007 Comment: [place] Date: 1985 CABG Date: 1986: TORRES-LAD, KAMLESH-RCA, SVG-Diag PCI 05-15 - stents in his ostial and proximal circumflex and in his obtuse marginal branch PTCA 05-15 - posterior lateral branch Cath 05-16:Patent SVG-Diag, TORRES-LAD, KAMLESH-RCA Bhavya 11-20: rec SPECT in 6 mo Mixed Hyperlipidemia - 03/22/2005 Comment: LDL 70, HDL 41, TG 94 in 10-20 LDL 80, HDL 43, TG 81 in 04-22 Enthesopathy of Ankle and Tarsus, 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 Respiratory: Negative. Cardiovascular: Negative. OBJECTIVE BP 138/54 Pulse 59 Wt 176 lb 2.4 oz (79.9kg) SpO2 93% Physical Exam Vitals and nursing note reviewed. Constitutional: General: He is awake. He is not in acute distress. Appearance: Normal appearance. He is well-developed and well-groomed. He is not ill-appearing, toxic-appearing or diaphoretic. HENT: Head: Normocephalic. Right Ear: External ear normal. Left Ear: External ear normal. Nose: Nose normal. Eyes: General: Vision grossly intact. Conjunctiva/sclera: Conjunctivae normal. Pupils: Pupils are equal, round, and reactive to light. Neck: Vascular: No JVD. Trachea: Trachea normal. Cardiovascular: Rate and Rhythm: Normal rate and regular rhythm. Pulses: Normal pulses. Heart sounds: Normal heart sounds. No murmur heard. Pulmonary: Effort: Pulmonary effort is normal. No accessory muscle usage, prolonged expiration or respiratory distress. Breath sounds: Normal breath sounds. Musculoskeletal: Cervical back: Neck supple. Skin: General: Skin is warm and dry. Capillary Refill: Capillary refill takes less than 2 seconds. Neurological: General: No focal deficit present. Mental Status: He is alert and oriented to person, place, and time. Mental status is at baseline. Psychiatric: Attention and Perception: Attention and perception normal. Mood and Affect: Mood and affect normal. Speech: Speech normal. Behavior: Behavior normal. Behavior is cooperative. Thought Content: Thought content normal. Cognition and Memory: Cognition and memory normal. Judgment: Judgment normal. ASSESSMENT/PLAN: 1. Idiopathic pulmonary fibrosis (HCC) - ICD9: 516.31, ICD10: J84.112 (primary diagnosis) Following with pulmonary. 2. Atherosclerosis 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 pectoris - ICD9: 414.01, ICD10: I25.10 Following with cardiology. - PANTOPRAZOLE 20 MG TABLET,DELAYED RELEASE - METOPROLOL SUCCINATE ER 25 MG TABLET,EXTENDED RELEASE 24 HR - EZETIMIBE 10 MG TABLET - CLOPIDOGREL 75 MG TABLET 3. Essential hypertension - ICD9: 401.9, ICD10: I10 - Controlled - Continue current medications - Recommend home blood pressure monitoring, to bring results to next visit - Encouraged sodium restriction, DASH or Mediterranean diet - Recommend regular aerobic exercise - METOPROLOL SUCCINATE ER 25 MG TABLET,EXTENDED RELEASE 24 HR 4. Mixed hyperlipidemia - ICD9: 272.2, ICD10: E78.2 Stable. - Counseled on healthy diet and regular exercise - EZETIMIBE 10 MG TABLET 5. Chronic idiopathic thrombocytopenia (HCC) - ICD9: 287.31, ICD10: D69.3 Stable. 6. Screening for depression - ICD9: V79.0, ICD10: Z13.31 - DEPRESSION SCREENING 7. Encounter for screening examination for other mental health and behavioral disorders - ICD9: V79.8, ICD10: Z13.39 - ANXIETY SCREENING 8. Encounter for immunization - ICD9: V03.89, ICD10: Z23 - INFLUENZA VACCINE, PRSV FREE, AGE 65+ YR, HIGH DOSE, TRIVALENT (FLUZONE HIGH-DOSE) - [employer] COVID-19 VACCINE AGE 12+ YR ([place]Y) Portions of this note have been entered by ancillary staff. I have reviewed and when necessary edited, so that they are an adequate record of my encounter with this patient Please note that parts of this document were created using voice recognition software and therefore may contain grammatical errors. Patient verbalizes understanding of instructions from today's visit and in agreement with treatment plan. Questions answered. Agrees to call the office if questions, concerns of issues with acute symptoms not improving or if they worsen. See diagnoses and orders for additional plan(s). Allergies and medications were reviewed, list was updated, and refills given if needed. Past medical, surgical, social, and family history reviewed and updated as appropriate. Encouraged proper diet & exercise as well as compliance with taking medications. Age-appropriate health preventative measures were discussed. Return if symptoms worsen or fail to improve, for Keep next scheduled appointment.. Talib Jung APRN-JULIA documented in this encounter [facility] 05-28-2024 Instructions Homa Coleman APRN.CNP - 05/28/2024 10:31 AM EDT Blood work today. Based on blood work, we can decide on medication. Ofev or Esbriet are the two medications we can consider. documented in this encounter [facility] 05-28-2024 History of Present illness Narrative Images from the original note were not included. Pulmonary Medicine Patients name: Marshal Carrillo PCP: Amilcar Tamayo MD CC: CT follow-up HPI: Marshal Carrillo is a 78 year old male former 25 pack year smoker, quitting in 1985 with PMH significant for CAD s/p CABG/stents, HLD, VT, PUD with GIB. He was referred to Dr. Chester for COPD evaluation and was seen 04/30/2024. Work-up included spirometry at that time was normal with mildly reduced diffusion. He underwent oximetry with ambulation which showed his oxygen level dropped to 90% but did not qualify for oxygen. Subsequent overnight oximetry exam was stable. Chest CT is consistent with IPF. Symptomatically, he is doing well. He reports the most noticeable functional decline was from [id number]. He has a history of CAD and has annual stress tests which have been normal. Currently, he walks 2.5 miles every day (previously 4 miles in 2019) and has been able to maintain that the past 2 years. He does check his SPO2 after walking which is frequently around 86%. He reports a daily productive cough with white sputum. No hemoptysis. No wheezing. Denies dyspnea at rest. His weight has been stable. GERD/heartburn controlled with Pantoprazole. PAST MEDICAL HISTORY Diagnosis Date Cardiac dysrhythmia, unspecified 07/30/2007 history of paroxysmal atrial and ventricular complexes and nonsustained ventricular tachycardia Coronary atherosclerosis of unspecified type of vessel, [place] or graft 07/30/2007 [place] Date: 1985. 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 Latif Ventricular tachycardia (HCC) 12/06/2022 Allergies: No Known Allergies Medication List Accurate as of May 24, 2024 2:41 PM. If you have any questions, ask your nurse or doctor. CONTINUE taking these medications clopidogrel 75 mg tablet Commonly known as: PLAVIX Take 1 tablet by mouth once daily. coenzyme Q10 100 mg Cap capsule Commonly known as: COENZYME Q-10 ezetimibe 10 mg tablet Commonly known as: ZETIA Take 1 tablet by mouth once daily. lutein 6 mg Cap metoprolol succinate ER 25 mg 24 hr tablet Commonly known as: TOPROL XL Take 1 tablet by mouth once daily. nitroglycerin sublingual 0.4 mg SL tablet Commonly known as: NITROSTAT Dissolve 1 tablet under the tongue as needed for chest pain. If no pain relief call 911. pantoprazole DR 20 mg tablet Commonly known as: PROTONIX Take 1 tablet by mouth once daily. rosuvastatin 40 mg tablet Commonly known as: CRESTOR Take 1 tablet by mouth daily at bedtime. DATA: I personally reviewed and analyzed all labs, radiographs and available pulmonary function testing PFT: 04/30/2024 IMPRESSION: Spirometry is normal. Minimal reduction in diffusion that corrects for alveolar volume. Oximetry with Ambulation 05/16/2024 CXR: Last XR Chest - Impression Only XR CHEST 2V FRONTAL/LAT Exam End: 04/30/2024 12:18 PM (Final result) Impression: IMPRESSION: Findings as described above are most consistent with chronic interstitial disease. No superimposed acute process Conveyor System Operator: [facility] Transcribe Date/Time: Apr 30 2024 4:22P... CT Chest: 05/16/2024 IMPRESSION: 1. Bilateral reticular opacities in a prominently peripheral and lower lung distribution with interstitial lung disease 2. There is a 4 mm nodule in the anterior left upper lobe 3. No thoracic lymphadenopathy Conveyor System Operator: [facility] Transcribe Date/Time: May 21 2024 12:42P Dictated by : KANDY MOTA MD This examination was interpreted and the report reviewed and electronically signed by: KANDY MOTA MD on May 21 2024 1:33PM EST Results-Findings * * *Final Report* * * DATE OF EXAM: May 16 2024 10:15AM [facility] 0541 - CT CHEST WO IVCON / PROCEDURE REASON: Interstitial pulmonary disease (HCC) * * * * Physician Interpretation * * * * EXAMINATION: CHEST CT WITHOUT CONTRAST CLINICAL HISTORY: Interstitial pulmonary disease Technique: Spiral CT acquisition of the chest from the thoracic inlet to the upper abdomen without contrast. MQ: CTCWO_6 CT Radiation dose: Integrated Dose-length product (DLP) for this visit = 233 mGy*cm CT Dose Reduction Employed: Automated exposure control(AEC) and iterative recon Comparison: No prior CT chest is available for comparison RESULT: Limitations: None. Lines, tubes, and devices: None. Lung parenchyma and airways: Bilateral reticular opacities in a predominantly peripheral and lower lung distribution with associated architectural distortion and bronchiectasis/bronchiolectasis. Bilateral lower lobe honeycombing. 4 mm nodule anterior left upper lobe (11:89). No acute airspace disease. Central airways are patent. Pleural space: No pleural effusion. No pleural thickening. Lower neck, lymph nodes, and mediastinum: The imaged thyroid gland is normal. No lymphadenopathy in the supraclavicular, axillary, mediastinal, or hilar regions. Calcified mediastinal and hilar lymph nodes consistent with remote granulomatous disease. Heart, pericardium, and thoracic vessels: The thoracic aorta and main pulmonary artery are normal in caliber. The cardiac chambers are normal in size. Postoperative changes from CABG. Coronary artery atherosclerotic calcifications are noted, although the study is not optimized for coronary assessment. No pericardial effusion or thickening. Bones and soft tissues: No destructive bone lesion. Chest wall is unremarkable. Upper abdomen: No acute abnormality in the imaged upper abdomen. Calcified splenic granulomas. Localizer images: No additional findings. IMMUNIZATIONS Prevnar - xx Pneumovax 23 - xx Influenza - 06/2023 COVID-19 - 06/2023 RSV- xx Review of Systems Constitutional: Negative for activity change, appetite change and unexpected weight change. HENT: Negative for congestion, postnasal drip and sinus pressure. Respiratory: Positive for shortness of breath. Negative for cough, chest tightness and wheezing. Cardiovascular: Negative for chest pain, palpitations and leg swelling. Allergic/Immunologic: Negative for environmental allergies. Neurological: Negative for dizziness, weakness and light-headedness. BP 120/65 Pulse 70 Temp 36.3 C (97.3 F) (Temporal) Wt 79.9 kg (176 lb 3.2 oz) SpO2 99% BMI 24.23 kg/m Physical Exam Vitals reviewed. Constitutional: General: He is not in acute distress. Appearance: Normal appearance. He is normal weight. HENT: Head: Normocephalic. Nose: No congestion or rhinorrhea. Mouth/Throat: Mouth: Mucous membranes are moist. Pharynx: No oropharyngeal exudate. Cardiovascular: Rate and Rhythm: Normal rate and regular rhythm. Heart sounds: Normal heart sounds. Pulmonary: Effort: Pulmonary effort is normal. No respiratory distress. Breath sounds: No wheezing. Musculoskeletal: Right lower leg: No edema. Left lower leg: No edema. Lymphadenopathy: Cervical: No cervical adenopathy. Skin: General: Skin is warm and dry. Capillary Refill: Capillary refill takes less than 2 seconds. Neurological: General: No focal deficit present. Mental Status: He is alert. ASSESSMENT/PLAN: 1. IPF (idiopathic pulmonary fibrosis) (HCC) - ICD9: 516.31, ICD10: J84.112 - chest CT consistent with pulmonary fibrosis - labs to work up autoimmune disease - WILLIAM BY IFA SCREEN - ANTI HARITHA ID - DNA ANTIBODY DS BLD - RHEUMATOID FACTOR - CCP ANTIBODY IGG - ANTI NEUTRO CYTO AB - POLYMYOSITIS AND DERMATOMYOSITIS PANEL - RNA POLYMERASE III AB - HEPATIC FUNCTION PNL - BASIC METABOLIC PANEL - reviewed testing results - discussed treatment with anti-fibrotics - no current need for oxygen supplementation however SPO2 90% with ambulation, consider reassessment at follow-up 2. Lung nodule - ICD9: 793.11, ICD10: R91.1 - single 4 mm nodule in [place] - CT follow-up in 1 year F/u 3 months Portions of this documentation were copied and pasted from previous office visit notes in order to provide a cohesive continuity of the history. The note has been reviewed and edited and updated as necessary. Homa Coleman APRN.CNP I spent a total of 36 minutes on the date of the service which included preparing to see the patient, [id number] patient care, completing clinical documentation, performing a medically appropriate examination, counseling and educating the patient/family/caregiver, ordering medications, tests, or procedures, and communicating results to the patient/family/caregiver. documented in this encounter [facility] 05-28-2024 Note HNO ID: [id number] Author: HMOA COLEMAN APRN.CNP Service: ? Author Type: Nurse Practitioner Type: Progress Notes Filed: 05/28/2024 12:57 Note Text: Pulmonary Medicine Patients name: Marshal Carrillo PCP: Amilcar Tamayo MD CC: CT follow-up HPI: Marshal Carrillo is a 78 year old male former 25 pack year smoker, quitting in 1985 with PMH significant for CAD s/p CABG/stents, HLD, VT, PUD with GIB. He was referred to Dr. Chester for COPD evaluation and was seen 04/30/2024. Work-up included spirometry at that time was normal with mildly reduced diffusion. He underwent oximetry with ambulation which showed his oxygen level dropped to 90% but did not qualify for oxygen. Subsequent overnight oximetry exam was stable. Chest CT is consistent with IPF. Symptomatically, he is doing well. He reports the most noticeable functional decline was from [id number]. He has a history of CAD and has annual stress tests which have been normal. Currently, he walks 2.5 miles every day (previously 4 miles in 2019) and has been able to maintain that the past 2 years. He does check his SPO2 after walking which is frequently around 86%. He reports a daily productive cough with white sputum. No hemoptysis. No wheezing. Denies dyspnea at rest. His weight has been stable. GERD/heartburn controlled with Pantoprazole. PAST MEDICAL HISTORY Diagnosis Date Cardiac dysrhythmia, unspecified 07/30/2007 history of paroxysmal atrial and ventricular complexes and nonsustained ventricular tachycardia Coronary atherosclerosis of unspecified type of vessel, [place] or graft 07/30/2007 [place] Date: 1985. CABG Date: 1986 - left [...] History of ventricular tachycardia 04/05/2011 Dr Latif [facility] Pure hypercholesterolemia 03/22/2005 Unspecified cardiovascular disease 03/22/2005 Flight Follower--Dr. Latif Ventricular tachycardia (HCC) 12/06/2022 Allergies: No Known Allergies Medication List Accurate as of May 24, 2024 2:41 PM. If you have any questions, ask your nurse or doctor. CONTINUE taking these medications clopidogrel 75 mg tablet Commonly known as: PLAVIX Take 1 tablet by mouth once daily. coenzyme Q10 100 mg Cap capsule Commonly known as: COENZYME Q-10 ezetimibe 10 mg tablet Commonly known as: ZETIA Take 1 tablet by mouth once daily. lutein 6 mg Cap metoprolol succinate ER 25 mg 24 hr tablet Commonly known as: TOPROL XL Take 1 tablet by mouth once daily. nitroglycerin sublingual 0.4 mg SL tablet Commonly known as: NITROSTAT Dissolve 1 tablet under the tongue as needed for chest pain. If no pain relief call 911. pantopraz[address] DR 20 mg tablet Commonly known as: PROTONIX Take 1 tablet by mouth once daily. rosuvastatin 40 mg tablet Commonly known as: CRESTOR Take 1 tablet by mouth daily at bedtime. DATA: I personally reviewed and analyzed all labs, radiographs and available pulmonary function testing PFT: 04/30/2024 IMPRESSION: Spirometry is normal. Minimal reduction in diffusion that corrects for alveolar volume. Oximetry with Ambulation 05/16/2024 CXR: Last XR Chest - Impression Only XR CHEST 2V FRONTAL/LAT Exam End: 04/30/2024 12:18 PM (Final result) Impression: IMPRESSION: Findings as described above are most consistent with chronic interstitial disease. No superimposed acute process Conveyor System Operator: [facility] Transcribe Date/Time: Apr 30 2024 4:22P... CT Chest: 05/16/2024 IMPRESSION: 1. Bilateral reticular opacities in a prominently peripheral and lower lung distribution with interstitial lung disease 2. There is a 4 mm nodule in the anterior left upper lobe 3. No thoracic lymphadenopathy Conveyor System Operator: [facility] Transcribe Date/Time: May 21 2024 12:42P Dictated by : KANDY MOTA MD This examination was interpreted and the report reviewed and electronically signed by: KANDY MOTA MD on May 21 2024 1:33PM EST Results-Findings * * *Final Report* * * DATE OF EXAM: May 16 2024 10:15AM [facility] 0541 - CT CHEST WO IVCON / PROCEDURE REASON: Interstitial pulmonary disease (HCC) * * * * Physician Interpretation * * * * EXAMINATION: CHEST CT WITHOUT CONTRAST CLINICAL HISTORY: Interstitial pulmonary disease Technique: Spiral CT acquisition of the chest from the thoracic inlet to the upper abdomen without contrast. MQ: CTCWO_6 CT Radiation dose: Integrated Dose-length product (DLP) for this visit = 233 mGy*cm CT Dose Reduction Employed: Automated exposure control(AEC) and iterative recon Comparison: No prior CT chest is available for comparison RESULT: (more content not included)... [facility] 05-16-2024 History of Present illness Narrative Radiology Service Progress Note PATIENT NAME: Marshal Carrillo DATE OF SERVICE: May 16, 2024 TIME: 4:04 PM PATIENT IDENTITY VERIFICATION COMPLETED USING TWO (2) IDENTIFIERS: Name and Date of confirmed by patient verbally. FALL SCREENING: Has the patient had 2 falls in the last year or 1 fall with injury or currently using an Ambulatory Assistive Device (Walker, Cane, Wheelchair, Crutches, etc.)? No PATIENT GENDER DATA: Male PATIENT RELEVANT IMPLANT DATA REVIEWED: Yes PATIENT PRESENTS WITH AN IMPLANTABLE OR ATTACHED CHEMICAL UNIT OPERATOR: No RADIOLOGY DEPARTMENT: CT; Exam(s) Completed: Chest PERIPHERAL IV DATA: Not applicable SIGNED BY: RT Terell(Tana) May 16, 2024 4:04 PM documented in this encounter [facility] 05-16-2024 Note HNO ID: [id number] Author: LIA STUART RT(Tana) Service: ? Author Type: Configuration Management Specialist Type: Progress Notes Filed: 05/16/2024 16:04 Note Text: Radiology Service Progress Note PATIENT NAME: Marshal Carrillo DATE OF SERVICE: May 16, 2024 TIME: 4:04 PM PATIENT IDENTITY VERIFICATION COMPLETED USING TWO (2) IDENTIFIERS: Name and Date of confirmed by patient verbally. FALL SCREENING: Has the patient had 2 falls in the last year or 1 fall with injury or currently using an Ambulatory Assistive Device (Walker, Cane, Wheelchair, Crutches, etc.)? No PATIENT GENDER DATA: Male PATIENT RELEVANT IMPLANT DATA REVIEWED: Yes PATIENT PRESENTS WITH AN IMPLANTABLE OR ATTACHED CHEMICAL UNIT OPERATOR: No RADIOLOGY DEPARTMENT: CT; Exam(s) Completed: Chest PERIPHERAL IV DATA: Not applicable SIGNED BY: RT Terell(Tana) May 16, 2024 4:04 PM [facility] 05-16-2024 Note HNO ID: [id number] Author: ALONDRA MERLOS RPFT Service: ? Author Type: Respiratory Therapist Type: Procedures Filed: 05/16/2024 09:38 Note Text: RESPIRATORY THERAPY OXIMETRY WITH AMBULATION Oximetry with Ambulation Test for This Encounter O2 Device O2 Adapter NC O2 Flow SpO2% HR Activity Ft Walked (ft) Time (min) Avg Speed (MPH) R/A 98 76 Resting R/A 92 103 Walking, usual pace 695 3 2.63 R/A 90 111 Walking, fastest pace 800 3 3.03 General Information Pulse Oximetry Site Total Time Spent Walking Assistance/O2 Supply Carrier L Index Finger 30 None NAME: Alondra THELMA Merlos PATIENT NAME: Marshal Balbuena Stites DATE: May 16, 2024 TIME: 9:38 AM Comment: [facility] 05-16-2024 Procedure note Associated Ord er(s): OXIMETRY WITH AMBULATION RESPIRATORY THERAPY OXIMETRY WITH AMBULATION Oximetry with Ambulation Test for This Encounter O2 Device O2 Adapter NC O2 Flow SpO2% HR Activity Ft Walked (ft) Time (min) Avg Speed (MPH) R/A 98 76 Resting R/A 92 103 Walking, usual pace 695 3 2.63 R/A 90 111 Walking, fastest pace 800 3 3.03 General Information Pulse Oximetry Site Total Time Spent Walking Assistance/O2 Supply Carrier L Index Finger 30 None NAME: THELMA Mireles PATIENT NAME: Marshal Balbuena Stites DATE: May 16, 2024 TIME: 9:38 AM Comment: [facility] 05-16-2024 Procedure note Associated Ord er(s): OXIMETRY WITH AMBULATION RESPIRATORY THERAPY OXIMETRY WITH AMBULATION Oximetry with Ambulation Test for This Encounter O2 Device O2 Adapter NC O2 Flow SpO2% HR Activity Ft Walked (ft) Time (min) Avg Speed (MPH) R/A 98 76 Resting R/A 92 103 Walking, usual pace 695 3 2.63 R/A 90 111 Walking, fastest pace 800 3 3.03 General Information Pulse Oximetry Site Total Time Spent Walking Assistance/O2 Supply Carrier L Index Finger 30 None NAME: THELMA Mireles PATIENT NAME: Marshal Carrillo DATE: May 16, 2024 TIME: 9:38 AM Comment: documented in this [facility] 05[facility]16-2024 Note HNO ID: [id number] Author: ALONDRA MERLOS RPFT Service: ? Author Type: Respiratory Therapist Type: Progress Notes Filed: 05/16/2024 09:38 Note Text: PULM FUNCTION: Provider: Millie Chester MD Assisting Tech: Alondra Merlos RPFT Oximetry - Ambulation: 1 [facility] 05-16-2024 History of Present illness Narrative PULM FUNCTION: Provider: Millie Chester MD Assisting Tech: Alondra Merlos RPFT Oximetry - Ambulation: 1 documented in this encounter [facility] 04-30-2024 History of Present illness Narrative Images from the original note were not included. . Respiratory Lovely Note Patient name: Marshal Carrillo PCP: Amilcar Tamayo MD Referring Physician: Same Consultation requested by Dr. Tamayo for an opinion regarding COPD. My final recommendations will be communicated back to the requesting physician by way of shared Medical record or letter to requesting physician via US mail. CC: Shortness of breath HPI: Marshal Carrillo 78 year old male former 25 pack year smoker, quitting in 1985 with PMH significant for CAD s/p CABG/stents, HLD, VT, PUD with GIB, being referred for evaluation of COPD. Patient has an extensive cardiac history, status post CABG and multiple stents. He states that his cardiac disease is manifested by shortness of breath and negative nuclear medicine treadmill stress testing. He is very active walking up to 4 miles a day. He also exercises on treadmill at 4 miles an hour. He first noted issues with worsening dyspnea on exertion based on treadmill stress testing. In 2019 he could exercise up to the level for but in 2021 he had dramatic decline in his exercise capacity. When walking on his treadmill at home, he can no longer use an incline. He gets very short of breath having to rest to catch his breath. It takes him up to 5 minutes to recover once he stops and rests. He purchased an oximeter and self monitor SpO2 with activity drops to 83%. He has had some cough with mucus production ever since he had COVID in 2020. No prior respiratory illnesses such as recurrent pneumonia or asthma. Although he was a former smoker, his pulmonary function testing does not show evidence of COPD. He states that he was told his chest x-ray was consistent with COPD. Chest x-ray obtained today is more consistent with interstitial lung disease. 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 He has no current pets at home. To his knowledge, he has never been on amiodarone. He has no symptoms to suggest an autoimmune disorder. DATA: PFT 12/2023: Pulmonary function testing shows no obstruction, mild restriction and minimal reduction in diffusion which corrects for alveolar volume PFT: Pulmonary function test today confirmed the absence of obstruction and persistent diffusion defect Labs: Component Ref Range & Units 9 mo ago (07/10/23) WBC 3.70 - 11.00 k/uL 7.15 RBC 4.20 - 6.00 m/uL 4.74 Hemoglobin 13.0 - 17.0 g/dL 14.6 Hematocrit 39.0 - 51.0 % 45.0 MCV 80.0 - 100.0 fL 94.9 MCH 26.0 - 34.0 pg 30.8 MCHC 30.5 - 36.0 g/dL 32.4 RDW-CV 11.5 - 15.0 % 13.3 Platelet Count 150 - 400 k/uL 129 Low MPV 9.0 - 12.7 fL 11.7 Absolute nRBC <0.01 k/uL <0.01 Imaging / Diagnostic Studies: DATE OF EXAM: Jan 09 2024 11:16AM WOX 5291 - XR CHEST 2V FRONTAL/LAT / EXAM DATE/TIME: 01/09/2024 11:16 AM COMPARISON: No relevant prior studies available. RESULT: Lines, tubes, and devices: None. Lungs and pleura: COPD. Bibasilar atelectasis/scarring, infectiousprocess less likely. No consolidation. No lung mass. No pleural effusion. No pneumothorax. Cardiomediastinal silhouette: Normal cardiomediastinal silhouette. Bones and soft tissues: Median sternotomy wires and surgical clips. CXR today: Review of chest x-ray shows basilar increased interstitial/reticular markings PAST MEDICAL HISTORY Diagnosis Date Cardiac dysrhythmia, unspecified 07/30/2007 history of paroxysmal atrial and ventricular complexes and nonsustained ventricular tachycardia Coronary atherosclerosis of unspecified type of vessel, [place] or graft 07/30/2007 IA Date: 1985. 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 Latif Ventricular tachycardia (HCC) 12/06/2022 ALLERGIES No Known Allergies pantoprazole (PROTONIX) 20 mg tablet Take 1 tablet by mouth once daily. clopidogrel (PLAVIX) 75 mg tablet Take 1 tablet by mouth once daily. ezetimibe (ZETIA) 10 mg tablet Take 1 tablet by mouth once daily. metoprolol succinate ER (TOPROL XL) 25 mg 24 hr tablet Take 1 tablet by mouth once daily. rosuvastatin (CRESTOR) 40 mg tablet Take 1 tablet by mouth daily at bedtime. coenzyme Q10 (COENZYME Q-10) 100 mg cap capsule Take 100 mg by mouth once daily. Lutein 6 mg ORAL Cap Take one(1) tablet daily. nitroglycerin sublingual (NITROSTAT) 0.4 mg SL tablet Dissolve 1 tablet under the tongue as needed for chest pain. If no pain relief call 911. Social History Tobacco Use Smoking status: Former Current packs/day: 0.00 Average packs/day: 1 pack/day for 25.0 years (25.0 ttl pk-yrs) Types: Cigarettes Start date: 07/23/1961 Quit date: 07/23/1986 Years since quittin.7 Smokeless tobacco: Never Vaping Use Vaping status: Never Used Substance Use Topics Alcohol use: Yes Comment: 4-5 beers a year Drug use: No Animal lab Pets: None FAMILY HISTORY Problem Relation Age of Onset Heart Mother Coronary Artery Disease Mother age 66 Heart Father Coronary Artery Disease Father age 82 other (Aortic Aneurysm) Father AAA-- from complications of surgery for repair Diabetes Paternal Grandfather None Sister None Sister other (Aortic aneurysm) Paternal Uncle PAST SURGICAL HISTORY Procedure Laterality Date ANGIOPLASTY 2001 1 angioplasty COLONOSCOPY FLX DX W/COLLJ SPEC WHEN PFRMD 09/14/2007 Very long/lax colon PAST SURGICAL HISTORY OF 1986 triple bypass surgery heart at [place] PAST SURGICAL HISTORY OF 2010 Squemous Cell- Face removed PAST SURGICAL HISTORY OF 2015- Dr Mclaughlin BCC face PAST SURGICAL HISTORY OF CABG bilateral jason, 1 vein graft REMV CATARACT EXTRACAP,INSERT LENS Bilateral STENTS (SPECIFY) 2001, 2014 3 stents PMH, Social history, family history and surgical history reviewed and updated in EMR REVIEW OF SYSTEMS: CONSTITUTIONAL: No fevers, chills, nightsweats, unintended weight loss HEENT: Denies nasal congestion/sinus symptoms, problematic allergy problems. EYES: No visual changes or eye pain CARDIOVASCULAR: No chest pain, palpitations, orthopnea, PND, edema. PULM: See HPI GI: No dysphagia/odynophagia, problematic reflux NEURO: No balance problems, peripheral weakness/paresthesias or numbness of concern. MUSC-SKEL: No joint pain, swelling, or erythema. INTEGUMENTARY: No new skin changes or rashes PHYSICAL EXAMINATION: Pulse 76 Resp 16 Ht 5' 11.5 (1.82m) Wt 174 lb (78.9kg) SpO2 96% BMI 23.93 kg/(m^2). General Appearance: Thin elderly male, NAD. Skin: Skin color, texture, turgor normal, no suspicious rashes or lesions. Few ecchymoses Head: Normocephalic, no masses, lesions, tenderness or abnormalities. Eyes: Scleral injection. Oropharynx: No oral lesions, telangiectasias, erythema. Neck: No JVD, no masses, no adenopathy. Lungs: Not labored, normal to percussion, bibasilar faint dry crackles. Heart: Regular rate and rhythm, no murmurs. Extremities: No clubbing. Mild pitting edema left. Musculoskeletal: No joint deformities or effusions. Neurologic: Alert and oriented, no focal findings. Assessment/Plan: 1. ILD -Physical exam, chest x-ray findings and pulmonary function testing most consistent with pulmonary fibrosis -Chest CT. Results of chest CT will determine extent of further workup -Oxygen assessment 2. Former smoker -Former remote smoker without evidence of COPD -Continue abstinence Millie Chester MD Respiratory Lovely documented in this [facility] 04-30-2024 Note HNO ID: [id number] Author: MILLIE CHESTER MD Service: ? Author Type: Physician Type: Progress Notes Filed: 04/30/2024 17:23 Note Text: . Respiratory Lovely Note Patient name: Marshal Carrillo PCP: Amilcar Tamayo MD Referring Physician: Same Consultation requested by Dr. Tamayo for an opinion regarding COPD. My final recommendations will be communicated back to the requesting physician by way of shared Medical record or letter to requesting physician via US mail. CC: Shortness of breath HPI: Marshal Carrillo 78 year old male former 25 pack year smoker, quitting in 1985 with PMH significant for CAD s/p CABG/stents, HLD, VT, PUD with GIB, being referred for evaluation of COPD. Patient has an extensive cardiac history, status post CABG and multiple stents. He states that his cardiac disease is manifested by shortness of breath and negative nuclear medicine treadmill stress testing. He is very active walking up to 4 miles a day. He also exercises on treadmill at 4 miles an hour. He first noted issues with worsening dyspnea on exertion based on treadmill stress testing. In 2018 he could exercise up to the level for but in 2021 he had dramatic decline in his exercise capacity. When walking on his treadmill at home, he can no longer use an incline. He gets very short of breath having to rest to catch his breath. It takes him up to 5 minutes to recover once he stops and rests. He purchased an oximeter and self monitor SpO2 with activity drops to 83%. He has had some cough with mucus production ever since he had COVID in 2020. No prior respiratory illnesses such as recurrent pneumonia or asthma. Although he was a former smoker, his pulmonary function testing does not show evidence of COPD. He states that he was told his chest x-ray was consistent with COPD. Chest x-ray obtained today is more consistent with interstitial lung disease. 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 He has no current pets at home. To his knowledge, he has never been on amiodarone. He has no symptoms to suggest an autoimmune disorder. DATA: PFT 12/2023: Pulmonary function testing shows no obstruction, mild restriction and minimal reduction in diffusion which corrects for alveolar volume PFT: Pulmonary function test today confirmed the absence of obstruction and persistent diffusion defect Labs: Component Ref Range AND Units 9 mo ago (07/10/23) WBC 3.70 - 11.00 k/uL 7.15 RBC 4.20 - 6.00 m/uL 4.74 Hemoglobin 13.0 - 17.0 g/dL 14.6 Hematocrit 39.0 - 51.0 % 45.0 MCV 80.0 - 100.0 fL 94.9 MCH 26.0 - 34.0 pg 30.8 MCHC 30.5 - 36.0 g/dL 32.4 RDW-CV 11.5 - 15.0 % 13.3 Platelet Count 150 - 400 k/uL 129 Low MPV 9.0 - 12.7 fL 11.7 Absolute nRBC <0.01 k/uL <0.01 Imaging / Diagnostic Studies: DATE OF EXAM: Jan 09 2024 11:16AM WOX 5291 - XR CHEST 2V FRONTAL/LAT / EXAM DATE/TIME: 01/09/2024 11:16 AM COMPARISON: No relevant prior studies available. RESULT: Lines, tubes, and devices: None. Lungs and pleura: COPD. Bibasilar atelectasis/scarring, infectiousprocess less likely. No consolidation. No lung mass. No pleural effusion. No pneumothorax. Cardiomediastinal silhouette: Normal cardiomediastinal silhouette. Bones and soft tissues: Median sternotomy wires and surgical clips. CXR today: Review of chest x-ray shows basilar increased interstitial/reticular markings PAST MEDICAL HISTORY Diagnosis Date Cardiac dysrhythmia, unspecified 07/30/2007 history of paroxysmal atrial and ventricular complexes and nonsustained ventricular tachycardia Coronary atherosclerosis of unspecified type of vessel, [place] or graft 07/30/2007 IA Date: 1985. 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 Latif Ventricular tachycardia (HCC) 12/06/2022 ALLERGIES No Known Allergies pantoprazole DR (PROTONIX) 20 mg tablet Take 1 tablet by mouth once daily. clopidogrel (PLAVIX) 75 mg tablet Take 1 tablet by mouth once daily. ezetimibe (ZETIA) 10 mg tablet Take 1 tablet by mouth once daily. metoprolol succinate ER (TOPROL XL) 25 mg 24 hr tablet Take 1 tablet by mouth once daily. rosuvastatin (CRESTOR) 40 mg tablet Take 1 tablet by mouth daily at bedtime. coenzyme Q10 (COENZYME Q-10) 100 mg cap capsule Take 100 mg by mouth once daily. Lutein 6 mg ORAL Cap Take one(1) tablet (more content not included)... [facility] 04-30-2024 Note HNO ID: [id number] Author: ALONDRA MERLOS RPFT Service: ? Author Type: Respiratory Therapist Type: Progress Notes Filed: 04/30/2024 13:00 Note Text: PULM FUNCTION: Provider: Millie Chester MD Assisting Tech: Alondra Merlos RPFT Spirometry: 1 DLCO: 1 [facility] 04-30-2024 History of Present illness Narrative PULM FUNCTION: Provider: Millie Chester MD Assisting Tech: Alondra Merlos RPFT Spirometry: 1 DLCO: 1 documented in this encounter [facility] 04-30-2024 Nurse Note Intake information documented in the prior visit with THELMA Mireles today. [facility] 04-30-[facility]24 Nurse Note Intake information documented in the prior visit with THELMA Mireles today. documented in this encounter [facility] 04-30-2024 History of Present illness Narrative Radiology Service Progress Note PATIENT NAME: Marshal Carrillo DATE OF SERVICE: April 30, 2024 TIME: 12:13 PM PATIENT IDENTITY VERIFICATION COMPLETED USING TWO (2) IDENTIFIERS: Name and Date of confirmed by patient verbally. FALL SCREENING: Has the patient had 2 falls in the last year or 1 fall with injury or currently using an Ambulatory Assistive Device (Walker, Cane, Wheelchair, Crutches, etc.)? No PATIENT GENDER DATA: Male PATIENT RELEVANT IMPLANT DATA REVIEWED: Not Applicable PATIENT PRESENTS WITH AN IMPLANTABLE OR ATTACHED CHEMICAL UNIT OPERATOR: No RADIOLOGY DEPARTMENT: General X-ray: Exam(s) Completed: Chest X-Ray PERIPHERAL IV DATA: Not applicable SIGNED BY: GIBSON Carlos) April 30, 2024 12:13 PM documented in this [facility] 04-30-2024 Note HNO ID: [id number] Author: JOESPH PERALES RT (R) Service: Radiology Author Type: Technologist Type: Progress Notes Filed: 04/30/2024 12:18 Note Text: Radiology Service Progress Note PATIENT NAME: Marshal Carrillo DATE OF SERVICE: April 30, 2024 TIME: 12:13 PM PATIENT IDENTITY VERIFICATION COMPLETED USING TWO (2) IDENTIFIERS: Name and Date of confirmed by patient verbally. FALL SCREENING: Has the patient had 2 falls in the last year or 1 fall with injury or currently using an Ambulatory Assistive Device (Walker, Cane, Wheelchair, Crutches, etc.)? No PATIENT GENDER DATA: Male PATIENT RELEVANT IMPLANT DATA REVIEWED: Not Applicable PATIENT PRESENTS WITH AN IMPLANTABLE OR ATTACHED CHEMICAL UNIT OPERATOR: No RADIOLOGY DEPARTMENT: General X-ray: Exam(s) Completed: Chest X-Ray PERIPHERAL IV DATA: Not applicable SIGNED BY: RT Breanna(R) April 30, 2024 12:13 PM [facility] 01-11-2024 History of Present illness Narrative PULM FUNCTION SMARTBLOCK: Provider: Talib Jung APRN.[employer] Assisting Tech: Alondra Merlos RPFT Spirometry: 1 DLCO: 1 LV - Box: 1 documented in this encounter [facility] 01-09-2024 History of Present illness Narrative Radiology Service Progress Note PATIENT NAME: Marshal Carrillo DATE OF SERVICE: January 09, 2024 TIME: 11:10 AM PATIENT IDENTITY VERIFICATION COMPLETED USING TWO (2) IDENTIFIERS: Name and Date of confirmed by patient verbally. FALL SCREENING: Has the patient had 2 falls in the last year or 1 fall with injury or currently using an Ambulatory Assistive Device (Walker, Cane, Wheelchair, Crutches, etc.)? No PATIENT GENDER DATA: Male PATIENT RELEVANT IMPLANT DATA REVIEWED: Not Applicable PATIENT PRESENTS WITH AN IMPLANTABLE OR ATTACHED CHEMICAL UNIT OPERATOR: No RADIOLOGY DEPARTMENT: General X-ray: Exam(s) Completed: Chest X-Ray PERIPHERAL IV DATA: Not applicable SIGNED BY: RT Breanna(R) January 09, 2024 11:10 AM documented in this encounter [facility] 01-09-2024 History of Present illness Narrative SUBJECTIVE Marshal Carrillo is a 78 year old male here today for a check up on his medical problems. Chief Complaint Patient presents with: F/U 6 months HPI Marshal Carrillo is a 78 year old male. He is an established patient of Amilcar Tamayo MD. Here today for a routine 6 month follow up. Last seen 07/10. History of GERD, HTN, CAD, HLD. Notes today some concerns, noticing he gets some shortness of breath with activity, it is manageable but noticeable. Dr. Hickman for cardiology, had a stress test. Low risk screen. Prior smoker. Has not followed with a mathematics department chair. Walks about 2.5 miles a day. Prior cxr 2018. Questionable signs of COPD. Has a pulse ox at home, runs low 90's when home and moving around. No issues with persistent cough or chest tightness. His medications were reviewed today and his list is now up to date. Medications Current Outpatient Medications Medication Sig pantoprazole DR (PROTONIX) 20 mg tablet Take 1 tablet by mouth once daily. clopidogrel (PLAVIX) 75 mg tablet Take 1 [...] pain. If no pain relief call 911. rosuvastatin (CRESTOR) 40 mg tablet Take 1 tablet by mouth daily at bedtime. coenzyme Q10 (COENZYME Q-10) 100 mg cap capsule Take 100 mg by mouth once daily. Lutein 6 mg ORAL Cap Take one(1) tablet daily. No current facility-administered medications for this visit. ALLERGIES No Known Allergies ACTIVE PROBLEM LIST Atherosclerosis of [place] Coronary Artery of [place] Heart Without Angina Pectoris - 06/07/2019 Pure Hypercholesterolemia - 06/07/2019 Peptic Ulcer - 05/29/2018 Basal Cell Carcinoma of Left Lower Eyelid - 02/28/2018 Chronic Idiopathic Thrombocytopenia (Hcc) - 02/23/2018 Bcc (Basal Cell Carcinoma of Skin) - 02/23/2018 S/P Drug Eluting Coronary Stent Placement - 12/02/2014 Comment: D/c plavix Keep on ASA S/P Cabg (Coronary Artery Bypass Graft) - 12/02/2014 Old Myocardial Infarction - 04/05/2011 Comment: Dr Latif [facility] Pvc (Premature Ventricular Contraction) - 04/05/2011 Comment: Dr [facility] Essential Hypertension - 11/06/2008 Comment: Creat 0.9 in 10-20, 1 in 04-22 Coronary Atherosclerosis - 07/30/2007 Comment: [place] Date: 1985 CABG Date: 1986: TORRES-LAD, KAMLESH-RCA, SVG-Diag PCI 05-15 - stents in his ostial and proximal circumflex and in his obtuse marginal branch PTCA 05-15 - posterior lateral branch Cath 05-16:Patent SVG-Diag, TORRES-LAD, KAMLESH-RCA Bhavya 11-20: rec SPECT in 6 mo Mixed Hyperlipidemia - 03/22/2005 Comment: LDL 70, HDL 41, TG 94 in 10-20 LDL 80, HDL 43, TG 81 in 04-22 Enthesopathy of Ankle and Tarsus, Unspecified - 03/22/2005 Social History Tobacco Use Smoking status: Former Packs/day: 1.00 Years: 25.00 Additional pack years: 0.00 Total pack years: 25.00 Types: Cigarettes Quit date: 07/23/1986 Years since quittin.4 Smokeless tobacco: Never Vaping Use Vaping Use: Never used Substance Use Topics Alcohol use: Yes Comment: 4-5 beers a year Drug use: No Review of Systems Respiratory: Positive for shortness of breath. Negative for apnea, cough, choking, chest tightness, wheezing and stridor. Cardiovascular: Negative. OBJECTIVE BP 110/68 Pulse 83 Wt 175 lb (79.4kg) SpO2 98% Physical Exam Vitals and nursing note reviewed. Constitutional: General: He is awake. He is not in acute distress. Appearance: Normal appearance. He is well-developed and well-groomed. He is not ill-appearing, toxic-appearing or diaphoretic. HENT: Head: Normocephalic. Right Ear: External ear normal. Left Ear: External ear normal. Nose: Nose normal. Eyes: General: Vision grossly intact. Conjunctiva/sclera: Conjunctivae normal. Pupils: Pupils are equal, round, and reactive to light. Neck: Vascular: No JVD. Trachea: Trachea normal. Cardiovascular: Rate and Rhythm: Normal rate and regular rhythm. Pulses: Normal pulses. Heart sounds: Normal heart sounds. No murmur heard. Pulmonary: Effort: Pulmonary effort is normal. No accessory muscle usage, prolonged expiration or respiratory distress. Breath sounds: Normal breath sounds. Musculoskeletal: Cervical back: Neck supple. Skin: General: Skin is warm and dry. Capillary Refill: Capillary refill takes less than 2 seconds. Neurological: General: No focal deficit present. Mental Status: He is alert and oriented to person, place, and time. Mental status is at baseline. Psychiatric: Attention and Perception: Attention and perception normal. Mood and Affect: Mood and affect normal. Speech: Speech normal. Behavior: Behavior normal. Behavior is cooperative. Thought Content: Thought content normal. Cognition and Memory: Cognition and memory normal. Judgment: Judgment normal. ASSESSMENT/PLAN: 1. Chronic obstructive pulmonary disease, unspecified COPD type (HCC) - ICD9: 496, ICD10: J44.9 (primary diagnosis) Given his smoking history and prior imaging COPD is very likely, update cxr and get PFTs. Will call with results. - XR CHEST 2V FRONTAL/LAT - SPIROMETRY WITH DILATOR IF OBSTRUCTED - LUNG DIFFUSION CAPACITY (DLCO) - LUNG VOLUMES 2. Essential hypertension - ICD9: 401.9, ICD10: I10 - Controlled - Continue current medications - Recommend home blood pressure monitoring, to bring results to next visit - Encouraged sodium restriction, DASH or Mediterranean diet - Recommend regular aerobic exercise 3. Atherosclerosis 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 pectoris - ICD9: 414.01, ICD10: I25.10 Stable. 4. Mixed hyperlipidemia - ICD9: 272.2, ICD10: E78.2 - Controlled - Continue current medications - Counseled on healthy diet and regular exercise Portions of this note have been entered by ancillary staff. I have reviewed and when necessary edited, so that they are an adequate record of my encounter with this patient Please note that parts of this document were created using voice recognition software and therefore may contain grammatical errors. Patient verbalizes understanding of instructions from today's visit and in agreement with treatment plan. Questions answered. Agrees to call the office if questions, concerns of issues with acute symptoms not improving or if they worsen. See diagnoses and orders for additional plan(s). Allergies and medications were reviewed, list was updated, and refills given if needed. Past medical, surgical, social, and family history reviewed and updated as appropriate. Encouraged proper diet & exercise as well as compliance with taking medications. Age-appropriate health preventative measures were discussed. Return in about 6 months (around 07/11/2024) for Follow up on chronic conditions and medications.. SHANIQUA White documented in this encounter [facility] 07-11-2023 History of Present illness Narrative [...] TIME: PATIENT DISCHARGED TO: Ambulatory patient, left [place] department area. A Diagnostic radioactive procedure has taken place, with no further precautions necessary other than routine body substance precautions. More information regarding radiation safety can be found using this link: [email or web address] SIGNATURE: RT Newton(R) PATIENT NAME: Marshal Carrillo DATE: July 11, 2023 TIME: 2:58 PM PAGER/CONTACT #: documented in this encounter [facility] 06-13-2023 Miscellaneous Notes Pt scheduled 07/11 Card Preliminary Approval for Scheduling Purposes ONLY Are Cardiac PET orders Present: Yes Do the order comments specify a Protocol or Instruction? Yes LVEF: LV Ejection Fraction (%) Date Value 06/27/2022 57 Test Approved: Yes, N/A PET Perfusion Rest & Stress (0109) Additional Comments: N/A Test Approved by: Frances Banegas If additional orders are required route to ordering physician and to P PET CAR CHECKER [facility] with recommendations. If all recommended orders are present route to P PET CAR CHECKER [facility] This form is used for MAIN CAMPUS APPOINTMENTS ONLY. Is this request for a [facility] PET scan appointment? Yes: Manager Home: Rashaad Gómez Requesting Person (Last Name, First Name): Area Code + Phone/Pager: [phone] Who do we call to schedule this appointment? Patient Requesting Staff Area Code + Phone/Pager: ex#[phone] PET Orders (A delay in scheduling will [...] day/next day medically urgent scans please call [phone] to expedite LVEF: LV Ejection Fraction (%) Date Value 06/27/2022 57 LVEF Free text: Yes, see above. Additional comments: N/A Send requests to P CARDIAC PET MD [place] documented in this encounter [facility] 06-12-2023 Miscellaneous Notes Prior auth request received and is available for review under scanned documents Annette documented in this encounter [facility] 12-06-2022 Instructions Brenda Santizo APRN.CNS - 12/06/2022 2:20 PM EDT documented in this encounter [facility] 12-06-2022 History of Past i llness Narrative Problem Noted Date Resolved Date Ventricular tachycardia 12/06/2022 12/07/19 23 Hematemesis 05/12/2018 05/15/2018 Hypertension 12/02/2014 01/23/2018 History of ventricular tachycardia 04/05/2011 08/02/2017 Overview: [facility] Postsurgical aortocoronary bypass status 011 08/02/2017 Overview: [facility] Tobacco use disorder 11/06/2008 12/25/2009 Overview: About a 30 pack year from age 18 to 38: quit at age 40 on the day of his IA US 10-09 showed no aneurysmal dilatation documented as of this encounter (statuses as of 12/07/2022) [facility] of Past illness Narrative* Problem Noted [...] age 40 on the day of his IA US 10-09 showed no aneurysmal dilatation documented as of this encounter (statuses as of 06/13/2023) [facility] History of Past illness Narrative* Problem Noted [...] age 40 on the day of his IA US 10-09 showed no aneurysmal dilatation documented as of this encounter (statuses as of 07/12/2023) [facility] History of Past illness Narrative* Problem Noted [...] age 40 on the day of his IA 05-22 showed no aneurysmal dilatation documented as of this encounter (statuses as of 07/12/2023) [facility] History of Present illness Narrative* Brenda Santizo, TAPER OPERATOR.ELECTROMECHANISMS DESIGN DRAFTER - 12/06/2022 2:00 PM EDT SUBJECTIVE: SHINGRIX VACCINE(2 of 3) due on 02/05/2008 DTAP,TDAP,TD(2 - Td or Tdap) due on 06/08/2022 ADVANCE DIRECTIVE DISCUSSION due on 08/14/2022 DEPRESSION ASSESSMENT Never done HPI Marshal Carrillo is a 77 year old male. [...] Left Lower Eyelid Peptic Ulcer Atherosclerosis of [place] Coronary Artery of [place] Heart Without Angina Pectoris Pure Hypercholesterolemia Encounter [...] shortness of breath. CAD: Follows with Dr. Hickman and Dr. Latif. CABG at [facility] with Dr. Rider. Last seen by 05/2022 echocardiogram completed showed mild concentric LVH, normal LV systolic function, estimated EF 57%. Grade 1 left ventricular diastolic dysfunction. Mildly dilated RA. No significant valvular abnormalities. Followed by [place] [facility]. Prescribed atorvastatin 80 mg daily, clopidogrel 75 mg daily ezetimibe 10 mg daily and metoprolol ER 25 mg daily. Notes his current environmental marketer will be leaving [facility]. Considering seeing another environmental marketer locally HTN: Mr. Carrillo indicates that he [...] Coronary atherosclerosis of unspecified type of vessel, [place] or graft 07/30/2007 IA Date: 1985. 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 Latif Social History Tobacco Use Smoking status: [...] Abs Lymph 1.00 - 4.00 k/uL 1.52 [place]% % 8.7 Abs [place] <0.87 k/uL 0.41 Eosin% % 2.3 Abs [...] ICD10: Z95.1 (primary diagnosis) Currently seeing Dr. Hickman at [facility] and [facility] Dr Garcia. His local environmental marketer will be leaving the practice. He will need to reestablish with a environmental marketer. He may continue with [facility] or be seen locally here. [...] 6 mo follow up MD Brenda Rivas APRN.ELECTROMECHANISMS DESIGN DRAFTER Medical Decision Making: Problems: Moderate: 2+ stable chronic illnesses Risk: Low: Low risk from testing/treatment Medical Decision Making Level: 3 - Low [facility] Miscellaneous Notes* Telephone Encounter - Branden Hickman MD - 07/01/2022 10:21 AM EST 06/27/2022 [...] of aortic aneurysm. 2. Preserved LV function. [employer] message sent. Mauricio Hickman MD [facility] History of Present illness Narrative* Sherri Pierce RDMS - 06/20/2022 10:00 AM EST Radiology Service Progress Note PATIENT NAME: Marshal Carrillo DATE OF SERVICE: June 20, 2022 [...] 20, 2022 10:30 AM [facility] History of Present illness Narrative* Branden Hickman MD - 06/13/2022 11:30 AM EDT Images from the original note were not included. [facility] Department of Cardiovascular Medicine SECTION OF INTERVENTIONAL CARDIOLOGY OUTPATIENT VISIT DATE June 11, 2021 OUTPATIENT VISIT TYPE ESTABLISHED PRIMARY CARE PHYSICIAN: Amilcar Tamayo [address] [place] [address] REFERRING PHYSICIAN: Mauricio Hickman [address] [facility] [address] CHIEF COMPLAINT: Patient presents with: Recheck: 12 [...] week without SHIELDS. He lives alone in [place]. His 1.5 years ago due to cancer. No PND, orthopnea, edema No palpitations No syncope, presyncope Points out history of abdominal aortic aneurysm in father and paternal uncle. PAST CARDIAC HISTORY: 07/23/1986 - IA - symptoms were SOB after chasing a calf at work (at [employer]). 08/1986 - CABG - TORRES to LAD, [...] continued aspirin. 06/01/2018 - Stress Nuclear in [place] 7:00, Stage 3, 107% APMHR, 8 METS ECG - baseline RBBB, exercise 1-[address] depression in I, L, V2 Nuclear - mid inferoseptal/basal, mid inferior perfusion changes appearing compatible with an areaof previous IA LVEF 59% 07/06/2018 - EGD as [facility] [...] 80 mg daily. 10/26/2021 - saw local environmental marketer in [place] who ordered repeat stress test for surveillance (patient asymptomatic) 10/28/2021 - OSH exercise SPECT Mild marian-infarct ischemia in the basal inferior/inferoseptal segments. LVEF 60%. PAST MEDICAL HISTORY Diagnosis Date Cardiac dysrhythmia, unspecified 07/30/2007 history of paroxysmal atrial and ventricular complexes and nonsustained ventricular tachycardia Coronary atherosclerosis of unspecified type of vessel, [place] or graft 07/30/2007 IA Date: 1985. 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 Latif PAST SURGICAL HISTORY Procedure Laterality Date ANGIOPLASTY 2001 1 angioplasty COLONOSCOPY FLX DX W/COLLJ SPEC WHEN PFRMD 09/14/2007 Very long/lax colon PAST SURGICAL HISTORY OF 1986 triple bypass surgery heart at [place] PAST SURGICAL HISTORY OF 2010 Squemous Cell- [...] and management of the patient's care. Mauricio Hickman MD ADDENDUM Component Latest Ref Rng & [...] Abs Lymph 1.00 - 4.00 k/uL 1.52 [place]% % 8.7 Abs [place] <0.87 k/uL 0.41 Eosin% % 2.3 Abs [...] ultrasound scheduled 06/20/2022. Echocardiogram scheduled 06/27/2022. Mauricio Hickman MD CONTACT INFORMATION: Mauricio Hickman M.D. Section of Interventional Cardiology [facility] Department of Cardiovascular Medicine [facility] Desk [place] [address] Office - [phone] extension [phone] Office Appointments: [phone] extension [phone] documented in [facility] encounter[facility]09-[facility] Instructions* Patient Instructions* Brenda Santizo APRN.CNS - 05/03/2022 2:09 PM EDT Check lipids, CBC, CMP - labs at your earliest convenience. documented in [facility] encounter[facility]09[facility] History of Present illness Narrative* Brenda Santizo APRN.CNS - 05/03/2022 2:00 PM EDT SUBJECTIVE: HEPATITIS C SCREENING Never done SHINGRIX VACCINE(2 of 3) due on 02/05/2008 ADVANCE DIRECTIVE DISCUSSION Never done COVID-19 VACCINE(4 - Booster for Pfizer series) due on 10/29/2021 DEPRESSION SCREENING due on 01/13/2022 INFLUENZA(1) due on 04/14/2022 HPI Marshal Carrillo is a 76 year old male. [...] Left Lower Eyelid Peptic Ulcer Atherosclerosis of [place] Coronary Artery of [place] Heart Without Angina Pectoris Pure Hypercholesterolemia HPI [...] the longer distance. CAD: Follows with Dr. Hickman and Dr. Latif. CABG at [facility] with Dr. Rider. Labs [facility] October 2021 HTN: Mr. Carrillo indicates that he is without headache, chest pain, palpitations, dyspnea, peripheral edema, orthopnea, fatigue and PND. Last 14 Encounter BP Readings: Date: BP: 05/03/2022 118/80 06/11/2021 112/79 01/15/2021 112/70 06/08/2020 135/56 02/19/2020 143/69 06/07/2019 126/72 02/11/2019 110/60 09/17/2018 125/69 08/30/2018 110/62 08/24/2018 110/62 07/31/2018 110/68 06/04/2018 117/66 05/29/2018 11505/19/2018 112/64 Hyperlipidemia. Mr. Carrillo reports doing well [...] 73 Resp 16 Ht 182.9 cm (6' 0.01) Wt 76.7 kg (169 lb) SpO2 98% [...] Coronary atherosclerosis of unspecified type of vessel, [place] or graft 07/30/2007 IA Date: 1985. 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 Latif Social History Tobacco Use Smoking status: [...] V03.89, ICD10: Z23 in office today - PFIZER-[employer] COVID-19 BIVALENT BOOSTER VACCINE, AGE 12+ YR [...] Endorse resuming Protonix . 14. Atherosclerosis 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 pectoris - ICD9: 414.01, ICD10: I25.10 Currently without CP, SOBOE, good exercise tolerance 6-9 mo follow up MD Brenda Rivas APRN.ELECTROMECHANISMS DESIGN DRAFTER Medical Decision Making: Problems: Moderate: 2+ stable chronic illnesses Data: Unique test(s) ordered: 3+ Risk: Moderate: Drug management Medical Decision Making Level: 4 - Moderate documented in [facility] encounter[facility]09-29-2018 History of Past illness Narrative* Problem Noted Date Resolved Date Hematemesis 05/12/2018 05/15/2018 Hypertension 12/02/2014 01/23/2018 History of ventricular tachycardia 04/05/2011 08/02/2017 Overview: Dr Latif [facility] Postsurgical aortocoronary bypass status 011 08/02/2017 Overview: [facility] Tobacco use disorder 11/06/2008 12/25/2009 Overview: About a 30 pack year from age 18 to 38: quit at age 40 on the day of his IA US 10-09 showed no aneurysmal dilatation documented as of this encounter (statuses as of 12/07/2021) [facility] History of Past illness Narrative* Problem Noted [...] age 40 on the day of his IA US 10-09 showed no aneurysmal dilatation documented as of this encounter (statuses as of 05/03/2022) [facility] of Past illness Narrative* Problem Noted [...] age 40 on the day of his IA US 10-09 showed no aneurysmal dilatation documented as of this encounter (statuses as of 06/14/2022) [facility] of Past illness Narrative* Problem Noted [...] age 40 on the day of his IA US 10-09 showed no aneurysmal dilatation documented as of this encounter (statuses as of 07/01/2022) [facility] of Past illness Narrative* Problem Noted [...] age 40 on the day of his IA US 10-09 showed no aneurysmal dilatation documented as of this encounter (statuses as of 11/24/2022) [facility] Past illness Narrative* Problem Noted [...] age 40 on the day of his IA US - showed no aneurysmal dilatation documented as of this encounter (statuses as of 06/18/2023) [facility] Hospital[facility] complaint+Reason for visit Narrative* Chief Complaint 1 Y FU COVID TEST/PROCEDURE CABG CABG Reason for Visit HLD (hyperlipidemia) Aortocoronary bypass status Atherosclerotic heart disease of [place] coronary artery without angina pectoris Essential hypertension Paroxysmal ventricular tachycardia Presence of stent in coronary artery COVID-19 [facility] Work Phone: Evaluation note* Diagnosis Onset Date Resolution Status HLD (hyperlipidemia) acute Aortocoronary bypass status 1985 chronic Atherosclerotic heart diseas e of [place] coronary artery without angina pectoris chronic Essential hypertension chron ic Paroxysmal ventricular tachycardia chronic Presence of stent in coronary artery November, chronic COVID-19 acute [facility] Work Phone: Evaluation note* Diagnosis S/P CABG (coronary artery bypass graft)- Primary Postsurgical aortocoronary bypass status Acute ischemic heart disease, unspecified (HCC) [facility] this encounter [facility]* Diagnosis Routine medical exam- Primary Routine [...] of hemorrhage, perforation, or obstruction Atherosclerosis 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 pectoris documented [facility] this encounter [facility]* Diagnosis Atherosclerosis 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 pectoris- Primary Mixed hyperlipidemia Essential hypertension Unspecified essential hypertension S/P CABG (coronary artery bypass graft) Postsurgical aortocoronary bypass status S/P drug eluting coronary stent placement Postsurgical percutaneous transluminal coronary angioplasty status Family history of aortic aneurysm Family history of other cardiovascular diseases [facility] Diagnosis Atherosclerosis 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 pectoris- Primary [facility] in [facility] encounter [facility]* Diagnosis S/P CABG (coronary artery bypass [...] coronary angioplasty status [facility]* Diagnosis Family history of abdominal aortic aneurysm (AAA) documented [facility] encounter [facility]* Diagnosis Atherosclerosis 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 pectoris S/P CABG (coronary artery bypass graft) Postsurgical aortocoronary bypass status documented in this encounter [facility] noteNo assessment information availableWSt. Francis Hospital Work Phone: Evaluation note* Diagnosis Chronic obstructive pulmonary disease, unspecified COPD type (HCC)- Primary Essential hypertension Unspecified essential hypertension Atherosclerosis 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 pectoris Mixed hyperlipidemia documented in this encounter [facility]* Diagnosis Chronic obstructive pulmonary disease, unspecified COPD type (HCC) documented [facility] encounter [facility]* Diagnosis Chronic obstructive pulmonary disease, unspecified COPD type (HCC) documented in this encounter [facility]* Diagnosis SOB (shortness of breath)- Primary Shortness of breath documented [facility] this encounter [facility]* Diagnosis Chronic obstructive pulmonary disease, unspecified COPD type (HCC) documented [facility] this encounter [facility]* Diagnosis 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 Former smoker Personal history of tobacco use, presenting hazards to health [facility] encounter [facility]* Diagnosis Chronic obstructive pulmonary disease, unspecified COPD type (HCC) documented in this encounter [facility]* Diagnosis Interstitial pulmonary disease (HCC) Postinflammatory pulmonary fibrosis [facility] Diagnosis Interstitial pulmonary disease (HCC) Postinflammatory pulmonary fibrosis [facility]* Diagnosis IPF (idiopathic pulmonary fibrosis) (HCC)- Primary Idiopathic pulmonary fibrosis Lung nodule Solitary pulmonary nodule [facility] Diagnosis IPF (idiopathic pulmonary fibrosis) (HCC) Idiopathic pulmonary fibrosis Atherosclerosis 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 pectoris [facility] Diagnosis Idiopathic pulmonary fibrosis (HCC)- Primary Idiopathic pulmonary fibrosis Atherosclerosis 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 pectoris Essential hypertension Unspecified essential hypertension Mixed hyperlipidemia Chronic idiopathic thrombocytopenia (HCC) Immune thrombocytopenic purpura Screening for depression Encounter for screening examination for other mental health and behavioral disorders Encounter for immunization Need for other specified prophylactic vaccination against single bacterial disease [facility] Diagnosis Atherosclerosis 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 pectoris- Primary S/P CABG (coronary artery bypass graft) Postsurgical aortocoronary bypass status Essential hypertension Unspecified essential hypertension Family history of aortic aneurysm Family history of other cardiovascular diseases [facility] Diagnosis Atherosclerosis 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 pectoris- Primary S/P CABG (coronary artery bypass graft) Postsurgical aortocoronary bypass status S/P drug eluting coronary stent placement Postsurgical percutaneous transluminal coronary angioplasty status Essential hypertension Unspecified essential hypertension Mixed hyperlipidemia Family history of aortic aneurysm Family history of other cardiovascular diseases [facility] Diagnosis IPF (idiopathic pulmonary fibrosis) (HCC)- Primary Idiopathic pulmonary fibrosis Allergic rhinitis, unspecified seasonality, unspecified trigger Rhinorrhea Other diseases of nasal cavity and sinuses [facility]* Diagnosis Atherosclerosis 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 pectoris Essential hypertension Unspecified essential hypertension Mixed hyperlipidemia [facility]* Diagnosis IPF (idiopathic pulmonary fibrosis) (HCC) Idiopathic pulmonary fibrosis [facility] Diagnosis IPF (idiopathic pulmonary fibrosis) (HCC) Idiopathic pulmonary fibrosis [facility] Diagnosis IPF (idiopathic pulmonary fibrosis) (HCC) Idiopathic pulmonary fibrosis [facility] Diagnosis Nausea- Primary Nausea alone Gastroesophageal reflux disease without esophagitis Esophageal reflux Essential hypertension Unspecified essential hypertension History of bleeding ulcers Personal history of peptic ulcer disease Idiopathic pulmonary fibrosis (HCC) Idiopathic pulmonary fibrosis Encounter for long-term current use of medication Encounter for immunization Need for other specified prophylactic vaccination against single bacterial disease Chronic idiopathic thrombocytopenia (HCC) Immune thrombocytopenic purpura documented in this encounter [facility] for referral (narrative)* Diagnostic Procedure Only (Routine) - Pending Review Specialty Diagnoses / Procedures Referred By Contac t Referred To Contact US IMAGING Diagnoses Family history of abdominal aortic aneurysm (AAA) Procedures US SCREENING FOR AAA (2017) US ABDOMINAL AORTA REAL TIME SCREEN STUDY AAA Brenda Santizo APRN.ELECTROMECHANISMS DESIGN DRAFTER [address] [place] [address] Us Imaging Referral ID Status Reason Start Date Expiration Date Visits Requested Visits Authorized [id number] Pending Review Auto-Generat ed Referral 05/03/2022 06/02/2023 1 1 [facility] for referral (narrative)* Outpatient Procedure (Routine) - Authorized Specialty Diagnoses / Procedures Referred By Contac t Referred To Contact [facility] Diagnoses Atherosclerosis 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 pectoris Essential hypertension S/P CABG (coronary artery bypass graft) Family history of aortic aneurysm Procedures ECHO ECHO TTHRC R-T 2D W/WOM-MODE COMPL SPEC&COLR D Branden Hickman MD [address], Desk [address] [place] [address] Heart And Vascular [facility] [place] [address] Referral ID Status Reason Start Date Expiration Date Visits Requested Visits Authorized [id number] Authorized Auto-Generat ed Referral 06/13/2023 1 1 [facility] for referral (narrative)* Diagnostic Procedure Only (Routine) - Closed Specialty Diagnoses / Procedures Referred By Contac t Referred To Contact US IMAGING Diagnoses Family history of abdominal aortic aneurysm (AAA) Procedures US SCREENING FOR AAA (2017) US ABDOMINAL AORTA REAL TIME SCREEN STUDY AAA Brenda Santizo APRN.ELECTROMECHANISMS DESIGN DRAFTER [address] [place] [address] [place] [id number] Referral ID Status Reason Start Date Expiration Date V isits Requested Visits Authorized [id number] Closed Auto-Generate d Referral 05/03/2022 06/02/2023 1 1 [facility] for referral (narrative)* Diagnostic Procedure Only (Routine) - Closed Specialty Diagnoses / Procedures Referred By Contac t Referred To Contact MOLECULAR & FUNCTIONAL IMAGING Diagnoses Atherosclerosis 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 pectoris S/P CABG (coronary artery bypass graft) Procedures NM PET/CT CARDIAC PERF REST/STRESS MYOCRD IMG PET PRFUJ LAP MACHINE TENDER STD RST & STRS CNCRNT CT Branden Hickman MD [address] [facility], Desk [address] [place] [address] Molecular & Functional Imaging [address] [place] [address] Referral ID Status Reason Start Date Expiration Date V isits Requested Visits Authorized [id number] Closed Auto-Generate d Referral 06/12/2023 07/11/2024 1 1 [facility] for referral (narrative)* Outpatient Procedure (Routine) - Authorized Specialty Diagnoses / Procedures [facility] Diagnoses Chronic obstructive pulmonary disease, unspecified COPD type (HCC) Procedures LUNG VOLUMES Talib Jung APRN.CNP [address] [place] [address] Respiratory [facility] [address] [place] [address] Referral ID Status Reason Start Date Expiration Date Visits Requested Visits Authorized [id number] Authorized Auto-Generat ed Referral 01/09/2024 02/07/2025 1 1 * Outpatient Procedure (Routine) - Authorized Specialty Diagnoses / Procedures [facility] Diagnoses Chronic obstructive pulmonary disease, unspecified COPD type (HCC) Procedures LUNG DIFFUSION CAPACITY (DLCO) DIFFUSING CAPACITY Talib Jung APRN.LARGE ANIMAL VETERINARIAN [address] [place] [address] [address] Referral ID Status Reason Start Date Expiration Date Visits Requested Visits Authorized [id number] Authorized Auto-Generat ed Referral 01/09/2024 02/07/2025 1 1 * Outpatient Procedure (Routine) - Authorized Specialty Diagnoses / Procedures Referred By Contac t Referred To Contact [facility] Diagnoses Chronic obstructive pulmonary disease, unspecified COPD type (HCC) Procedures SPIROMETRY WITH DILATOR IF OBSTRUCTED BRNCDILAT RSPSE SPMTRY PRE&POST-BRNCDILAT ADMN Talib Jung APRN.CNP [address] [place] [address] Respiratory [place] [id number] Referral ID Status Reason Start Date Expiration Date Visits Requested Visits Authorized [id number] Authorized Auto-Generat ed Referral 01/09/2024 02/07/2025 1 1 [facility] for referral (narrative)* Outpatient Procedure (Routine) - Authorized Specialty Diagnoses / Procedures Referred By Contac t Referred To [facility] Diagnoses SOB (shortness of breath) Procedures ECG COMPLETE ECG ROUTINE ECG W/LEAST 12 LDS W/I&R Branden Hickman MD [address] [facility], Desk [address] [place] [address] [facility] [place] [address] Referral ID Status Reason Start Date Expiration Date Visits Requested Visits Authorized [id number] Authorized Auto-Generat ed Referral 04/25/2024 04/25/2025 1 1 [facility] for referral (narrative)* Outpatient Procedure (Routine) - Authorized Specialty Diagnoses / Procedures Referred By Contac t Referred To Contact [facility] Diagnoses Interstitial pulmonary disease (HCC) Procedures OXIMETRY WITH AMBULATION NONINVASIVE EAR/PULSE OXIMETRY MULTIPLE Millie Espinoza MD [address] [place] [address] [facility] [address] [place] [address] Referral ID Status Reason Start Date Expiration Date Visits Requested Visits Authorized [id number] Authorized Auto-Generat ed Referral 04/30/2024 05/30/2025 1 1 * MRI/CT (Routine) - Authorized Specialty Diagnoses / Procedures Referred By Contac t Referred To Contact CT IMAGING Diagnoses Interstitial pulmonary disease (HCC) Procedures CT CHEST WO IVCON DIAGNOSTIC COMPUTED TOMOGRAPHY THORAX W/O CNTRSMillie Santoro MD [address] [place] [address] Ct Imaging [facility]95 Referral ID Status Reason Start Date Expiration Date Visits Requested Visits Authorized [id number] Authorized Auto-Generat ed Referral 04/30/2024 05/30/2025 1 1 [facility] for referral (narrative)* Outpatient Procedure (Routine) - Authorized Specialty Diagnoses / Procedures Referred By Contac t Referred To [facility] Diagnoses Atherosclerosis 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 pectoris S/P CABG (coronary artery bypass graft) Essential hypertension Family history of aortic aneurysm Procedures ECHO ECHO TTHRC R-T 2D W/WOM-MODE COMPL SPEC&COLR D Branden Hickman MD [address], [facility] [address] [place] [address] [facility] [address] [place] [address] Referral ID Status Reason Start Date Expiration Date Visits Requested Visits Authorized [id number] Authorized Auto-Generat ed Referral 4 07/05/[address] 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 Advance Directive(s) 05/12/2018 9:31 PM Advance Directive(s) 02/28/2018 9:40 AM Advance Directive(s) 01/30/2017 12:46 PM Advance Directive(s) 12/30/2015 11:40 AM Documents on File Type Date Recorded 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 Advance Directive(s) 01/30/2017 12:46 PM Documents on File Type Date Recorded 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 Advance Directive(s) 01/30/2017 12:46 PM Advance Directive Response Recorded Date/ Time Living Will No September 05 9:35am Power of [employer] Lead No September 05, 2023 9:35am Reason for Referral Specialty Diagnoses / Procedures Referred By Contac t Referred To Contact Cardiology Diagnoses S/P CABG (coronary artery bypass graft) Procedures CONSULT TO CARDIOLOGY OFFICE/OUTPATIENT NEW HIGH MDM 60-74 MINUTES Brenda Santizo, TAPER OPERATOR.ELECTROMECHANISMS DESIGN DRAFTER [address] [place] [address] Referral ID Status Reason Start Date Expiration Date Visits Requested Visits Authorized [id number] Authorized PCP Requested Referral 12/06/2022 12/06/2023 1 1 Specialty Diagnoses / Procedures Referred By Contac t Referred To Contact CT IMAGING Diagnoses Lung nodule Procedures CT CHEST WO IVCON DIAGNOSTIC COMPUTED TOMOGRAPHY THORAX W/O CNTRST Homa Coleman, TAPER OPERATOR.LARGE ANIMAL VETERINARIAN [address] [facility] Desk [address] [place] [address] Ct Imaging [facility]95 Referral ID Status Reason Start Date Expiration Date Visits Requested Visits Authorized [id number] New Request Auto-Generat ed Referral 06/27/2025 1 1 Specialty Diagnoses / Procedures Referred By Contac t Referred To [facility] Diagnoses Atherosclerosis 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 pectoris Procedures CARDIOVASCULAR MEDICINE OP FOLLOW UP APPT ORDER Branden Hickman MD [address], [address] [place] [address] [facility] [address] [place] [address] Referral ID Status Reason Start Date Expiration Date Visits Requested Visits Authorized [id number] Ref Not Required PCP Requested Referral 04/09/2025 07/08/2025 1 1 Chief Complaint and Reason for Visit Chief Complaint FALL Additional Source Comments (unrecognized sect ion and content) No Status Records FoundNo Status Records FoundNo Status Records Found INFORMATION SOURCE (unrecogn ized section and content) DATE CREATED AUTHOR 03/01/2018 [facility] DATE CREATED AUTHOR AUTHOR'S ORGANIZ ATION 10/14/2023 [facility] DATE CREATED AUTHOR AUTHOR'S ORGANIZ ATION 04/04/2025 [facility] Goals (unrecognized section and content) Goals may be documented in a n alternate sectionGoals may be documented in an alternate section Source Comments (unrecognize d section and content) In the event this informatio n is protected by the Federal Confidentiality of Alcohol and Drug Abuse Patient Records regulations: The Federal rules restrict any use of the information to criminally investigate or prosecute any alcohol or drug abuse patient.[facility] HospitalIn the event this information is protected by the Federal Confidentiality of Alcohol and Drug Abuse Patient Records regulations: The Federal rules restrict any use of the information to criminally investigate or prosecute any alcohol or drug abuse patient.[facility] HospitalIn the event this information is protected by the Federal Confidentiality of Alcohol and Drug Abuse Patient Records regulations: The Federal rules restrict any use of the information to criminally investigate or prosecute any alcohol or drug abuse patient.[facility] HospitalIn the event this information is protected by the Federal Confidentiality of Alcohol and Drug Abuse Patient Records regulations: The Federal rules restrict any use of the information to criminally investigate or prosecute any alcohol or drug abuse patient.[facility] HospitalIn the event this information is protected by the Federal Confidentiality of Alcohol and Drug Abuse Patient Records regulations: The Federal rules restrict any use of the information to criminally investigate or prosecute any alcohol or drug abuse patient.[facility] HospitalIn the event this information is protected by the Federal Confidentiality of Alcohol and Drug Abuse Patient Records regulations: The Federal rules restrict any use of the information to criminally investigate or prosecute any alcohol or drug abuse patient.[facility] HospitalIn the event this information is protected by the Federal Confidentiality of Alcohol and Drug Abuse Patient Records regulations: The Federal rules restrict any use of the information to criminally investigate or prosecute any alcohol or drug abuse patient.[facility] HospitalIn the event this information is protected by the Federal Confidentiality of Alcohol and Drug Abuse Patient Records regulations: The Federal rules restrict any use of the information to criminally investigate or prosecute any alcohol or drug abuse patient.[facility] HospitalIn the event this information is protected by the Federal Confidentiality of Alcohol and Drug Abuse Patient Records regulations: The Federal rules restrict any use of the information to criminally investigate or prosecute any alcohol or drug abuse patient.[facility] HospitalIn the event this information is protected by the Federal Confidentiality of Alcohol and Drug Abuse Patient Records regulations: The Federal rules restrict any use of the information to criminally investigate or prosecute any alcohol or drug abuse patient.[facility] HospitalIn the event this information is protected by the Federal Confidentiality of Alcohol and Drug Abuse Patient Records regulations: The Federal rules restrict any use of the information to criminally investigate or prosecute any alcohol or drug abuse patient.[facility] HospitalIn the event this information is protected by the Federal Confidentiality of Alcohol and Drug Abuse Patient Records regulations: The Federal rules restrict any use of the information to criminally investigate or prosecute any alcohol or drug abuse patient.[facility] HospitalIn the event this information is protected by the Federal Confidentiality of Alcohol and Drug Abuse Patient Records regulations: The Federal rules restrict any use of the information to criminally investigate or prosecute any alcohol or drug abuse patient.[facility] HospitalIn the event this information is protected by the Federal Confidentiality of Alcohol and Drug Abuse Patient Records regulations: The Federal rules restrict any use of the information to criminally investigate or prosecute any alcohol or drug abuse patient.[facility] HospitalIn the event this information is protected by the Federal Confidentiality of Alcohol and Drug Abuse Patient Records regulations: The Federal rules restrict any use of the information to criminally investigate or prosecute any alcohol or drug abuse patient.[facility] HospitalIn the event this information is protected by the Federal Confidentiality of Alcohol and Drug Abuse Patient Records regulations: The Federal rules restrict any use of the information to criminally investigate or prosecute any alcohol or drug abuse patient.[facility] HospitalIn the event this information is protected by the Federal Confidentiality of Alcohol and Drug Abuse Patient Records regulations: The Federal rules restrict any use of the information to criminally investigate or prosecute any alcohol or drug abuse patient.[facility] HospitalIn the event this information is protected by the Federal Confidentiality of Alcohol and Drug Abuse Patient Records regulations: The Federal rules restrict any use of the information to criminally investigate or prosecute any alcohol or drug abuse patient.[facility] HospitalIn the event this information is protected by the Federal Confidentiality of Alcohol and Drug Abuse Patient Records regulations: The Federal rules restrict any use of the information to criminally investigate or prosecute any alcohol or drug abuse patient.[facility] HospitalIn the event this information is protected by the Federal Confidentiality of Alcohol and Drug Abuse Patient Records regulations: The Federal rules restrict any use of the information to criminally investigate or prosecute any alcohol or drug abuse patient.[facility] HospitalIn the event this information is protected by the Federal Confidentiality of Alcohol and Drug Abuse Patient Records regulations: The Federal rules restrict any use of the information to criminally investigate or prosecute any alcohol or drug abuse patient.[facility] HospitalIn the event this information is protected by the Federal Confidentiality of Alcohol and Drug Abuse Patient Records regulations: The Federal rules restrict any use of the information to criminally investigate or prosecute any alcohol or drug abuse patient.[facility] HospitalIn the event this information is protected by the Federal Confidentiality of Alcohol and Drug Abuse Patient Records regulations: The Federal rules restrict any use of the information to criminally investigate or prosecute any alcohol or drug abuse patient.[facility] HospitalIn the event this information is protected by the Federal Confidentiality of Alcohol and Drug Abuse Patient Records regulations: The Federal rules restrict any use of the information to criminally investigate or prosecute any alcohol or drug abuse patient.[facility] HospitalIn the event this information is protected by the Federal Confidentiality of Alcohol and Drug Abuse Patient Records regulations: The Federal rules restrict any use of the information to criminally investigate or prosecute any alcohol or drug abuse patient.[facility] HospitalIn the event this information is protected by the Federal Confidentiality of Alcohol and Drug Abuse Patient Records regulations: The Federal rules restrict any use of the information to criminally investigate or prosecute any alcohol or drug abuse patient.[facility] HospitalIn the event this information is protected by the Federal Confidentiality of Alcohol and Drug Abuse Patient Records regulations: The Federal rules restrict any use of the information to criminally investigate or prosecute any alcohol or drug abuse patient.[facility] HospitalIn the event this information is protected by the Federal Confidentiality of Alcohol and Drug Abuse Patient Records regulations: The Federal rules restrict any use of the information to criminally investigate or prosecute any alcohol or drug abuse patient.[facility] HospitalIn the event this information is protected by the Federal Confidentiality of Alcohol and Drug Abuse Patient Records regulations: The Federal rules restrict any use of the information to criminally investigate or prosecute any alcohol or drug abuse patient.[facility] HospitalIn the event this information is protected by the Federal Confidentiality of Alcohol and Drug Abuse Patient Records regulations: The Federal rules restrict any use of the information to criminally investigate or prosecute any alcohol or drug abuse patient.[facility] HospitalIn the event this information is protected by the Federal Confidentiality of Alcohol and Drug Abuse Patient Records regulations: The Federal rules restrict any use of the information to criminally investigate or prosecute any alcohol or drug abuse patient.[facility] HospitalIn the event this information is protected by the Federal Confidentiality of Alcohol and Drug Abuse Patient Records regulations: The Federal rules restrict any use of the information to criminally investigate or prosecute any alcohol or drug abuse patient.[facility] HospitalIn the event this information is protected by the Federal Confidentiality of Alcohol and Drug Abuse Patient Records regulations: The Federal rules restrict any use of the information to criminally investigate or prosecute any alcohol or drug abuse patient.[facility] HospitalIn the event this information is protected by the Federal Confidentiality of Alcohol and Drug Abuse Patient Records regulations: The Federal rules restrict any use of the information to criminally investigate or prosecute any alcohol or drug abuse patient.[facility] HospitalIn the event this information is protected by the Federal Confidentiality of Alcohol and Drug Abuse Patient Records regulations: The Federal rules restrict any use of the information to criminally investigate or prosecute any alcohol or drug abuse patient.[facility] HospitalIn the event this information is protected by the Federal Confidentiality of Alcohol and Drug Abuse Patient Records regulations: The Federal rules restrict any use of the information to criminally investigate or prosecute any alcohol or drug abuse patient.[facility] HospitalIn the event this information is protected by the Federal Confidentiality of Alcohol and Drug Abuse Patient Records regulations: The Federal rules restrict any use of the information to criminally investigate or prosecute any alcohol or drug abuse patient.[facility] HospitalIn the event this information is protected by the [facility] Confidentiality of Alcohol and Drug Abuse Patient Records regulations: The Federal rules restrict any use of the information to criminally investigate or prosecute any alcohol or drug abuse patient.[facility] HospitalIn the event this information is protected by the Federal Confidentiality of Alcohol and Drug Abuse Patient Records regulations: The Federal rules restrict any use of the information to criminally investigate or prosecute any alcohol or drug abuse patient.[facility] Care Teams (unrecognized sec tion and content) Extrusion Die Corrector Relationship Specialty Start Date End Date Amilcar Tamayo MD [address] [place] [address] PCP - General 12/25/09 Lev Latif [address] [place] [address] Referring Cardiology 06/04/18 Branden Hickman MD [address], Desk [address] [place] [address] Primary Staff Physician Cardiology 10/30/18 Extrusion Die Corrector Relationship Specialty Start Date End Date Amilcar Tamayo MD [address] [facility] [place] [address] PCP - General 12/25/09 [address] [facility] [address] Referring Cardiology 06/04/18 Branden Hickman MD [address], Desk [address] [place] [address] Primary Staff Physician Cardiology 10/30/18 Extrusion Die Corrector Relationship Specialty Start Date End Date Amilcar Tamayo MD [address] [facility] [place] [address] PCP - General 12/25/09 Lev Latif [address] [place] [facility] [place] [address] Referring Cardiology 06/04/18 Branden Hickman MD [address], Desk [address] [place] [address] Primary Staff Physician Cardiology 10/30/18 Extrusion Die Corrector Relationship Specialty Start Date End Date Amilcar Tamayo MD [address] [facility] [place] [address] PCP - General 12/25/09 Lev Latif [address] [place] [address] Referring Cardiology 06/04/18 Branden Hickman MD [address], Desk [address] [place] [address] Primary Staff Physician Cardiology 10/30/18 Extrusion Die Corrector Relationship Specialty Start Date End Date Amilcar Tamayo MD [address] [facility] [place] [address] PCP - General 12/25/09 Lev Latif [address] Of[address] [facility] [facility] [place] [place] [address] Referring Cardiology 06/04/18 Branden Hickman MD [address], Desk [address] [place] [address] Primary Staff Physician Cardiology 10/30/18 Extrusion Die Corrector Relationship Specialty Start Date End Date Amilcar Tamayo MD [address] [place] [address] PCP - General 12/25/09 Lev Latif [address] [place] [address] Referring Cardiology 06/04/18 Branden Hickman MD [address], [address] [place] [address] Primary Staff Physician Cardiology 10/30/18 Extrusion Die Corrector Relationship Specialty Start Date End Date Amilcar Tamayo MD [address] [place] [address] PCP - General 12/25/09 Lev Latif [address] [place] [address] Referring Cardiology 06/04/18 Branden Hickman MD [address], [address] [place] [address] Primary Staff Physician Cardiology 10/30/18 Extrusion Die Corrector Relationship Specialty Start Date End Date Amilcar Tamayo MD [address] [place], [place] [address] PCP - General 12/25/09 Lev Latif [address] [place] [address] Referring Cardiology 06/04/18 Branden Hickman MD [address], Desk [address] [place], [place] [address] Primary Staff Physician Cardiology 10/30/18 Extrusion Die Corrector Relationship Specialty Start Date End Date Amilcar Tamayo MD [address] [place], [place] [address] PCP - General 12/25/09 Lev Latif [address] [place] [address] Referring Cardiology 06/04/18 Branden Hickman MD [address], [address] [place] [address] Primary Staff Physician Cardiology 10/30/18 Extrusion Die Corrector Relationship Specialty Start Date End Date Amilcar Tamayo MD [address] [place], [place] [address] PCP - General 12/25/09 Lev Latif MD [address] [place] [address] Referring Cardiology 06/04/18 Branden Hickman MD [address], [address] [place] [address] Primary Staff Physician Cardiology 10/30/18 Extrusion Die Corrector Relationship Specialty Start Date End Date Amilcar Tamayo MD [address] [place] [address] PCP - General 12/25/09 Lev Latif MD [address] [place] [address] Referring Cardiology 06/04/18 Branden Hickman MD [address], [address]k [address] [place] [address] Primary Staff Physician Cardiology 10/30/18 Team Status: Active Member Role Status Dates Dr. Amilcar Tamayo MD Family Provider Active Dr. Amilcar Tamayo MD Primary Care Provider Active Team Status: Inactive Member Role Status Dates Dr. Amilcar Tamayo MD Primary Care Provider Active Dr. Demarcus Greene DO Emergency Provider Active Extrusion Die Corrector Relationship Specialty Start Date End Date Amilcar Tamayo MD [address] [place] [address] PCP - General 12/25/09 Lev Latif MD [address] [place] [address] Referring Cardiology 06/04/18 Branden Hickman MD [address], Desk [address] [place], [place] [address] Primary Staff Physician Cardiology 10/30/18 Extrusion Die Corrector Relationship Specialty Start Date End Date Amilcar Tamayo MD [address] [place] [address] PCP - General 12/25/09 Lev Latif MD [address] [place] [address] Referring Cardiology 06/04/18 Branden Hickman MD [address], [address] [place] [address] Primary Staff Physician Cardiology 10/30/18 Extrusion Die Corrector Relationship Specialty Start Date End Date Amilcar Tamayo MD [address] [place] [address] PCP - General 12/25/09 Lev Latif MD [address] [place] [address] Referring Cardiology 06/04/18 Branden Hickman MD [address], [address] [place] [address] Primary Staff Physician Cardiology 10/30/18 Extrusion Die Corrector Relationship Specialty Start Date End Date Amilcar Tamayo MD [address] [place] [address] PCP - General 12/25/09 Lev Latif MD [address] [place] [address] Referring Cardiology 06/04/18 Branden Hickman MD [address], [address] [place] [address] Primary Staff Physician Cardiology 10/30/18 Extrusion Die Corrector Relationship Specialty Start Date End Date Amilcar Tamayo MD [address] [place] [address] PCP - General 12/25/09 Lev Latif MD [address] [place] [address] Referring Cardiology 06/04/18 Branden Hickman MD [address], [address] [place] [address] Primary Staff Physician Cardiology 10/30/18 Extrusion Die Corrector Relationship Specialty Start Date End Date Amilcar Tamayo MD [address] [place] [address] PCP - General 12/25/09 Lev Latfi MD [address] [place], [place] [address] Referring Cardiology 06/04/18 Branden Hickman MD [address], [address] [place] [address] Primary Staff Physician Cardiology 10/30/18 Extrusion Die Corrector Relationship Specialty Start Date End Date Amilcar Tamayo MD [address] [place] [address] PCP - General 12/25/09 Lev Latif MD [address] [place] [address] Referring Cardiology 06/04/18 Branden Hickman MD [address], [address] [place] [address] Primary Staff Physician Cardiology 10/30/18 Extrusion Die Corrector Relationship Specialty Start Date End Date Amilcar Tamayo MD [address] [place] [address] PCP - General 12/25/09 Lev Latif MD [address] [place] [address] Referring Cardiology 06/04/18 Branden Hickman MD [address], [address] [place] [address] Primary Staff Physician Cardiology 10/30/18 Extrusion Die Corrector Relationship Specialty Start Date End Date Amilcar Tamayo MD [address] [place] [address] PCP - General 12/25/09 Lev Latif MD [address] [place] [address] Referring Cardiology 06/04/18 Branden Hickman MD [address], [address] [place] [address] Primary Staff Physician Cardiology 10/30/18 Extrusion Die Corrector Relationship Specialty Start Date End Date Amilcar Tamayo MD [address] [place] [address] PCP - General 12/25/09 Lev Latif MD [address] [place], [place] [address] Referring Cardiology 06/04/18 Branden Hickman MD [address], [address] [place] [address] Primary Staff Physician Cardiology 10/30/18 Extrusion Die Corrector Relationship Specialty Start Date End Date Amilcar Tamayo MD [address] [place] [address] PCP - General 12/25/09 Lev Latif MD [address] [place], [place] [address] Referring Cardiology 06/04/18 Branden Hickman MD [address], [address] [place] [address] Primary Staff Physician Cardiology 10/30/18 Extrusion Die Corrector Relationship Specialty Start Date End Date Amilcar Tamayo MD [address] [place] [address] PCP - General 12/25/09 Lev Latif MD [address] [place] [address] Referring Cardiology 06/04/18 Branden Hickman MD [address], Desk [address] [place] [address] Primary Staff Physician Cardiology 10/30/18 Extrusion Die Corrector Relationship Specialty Start Date End Date Amilcar Tamayo MD [address] [place] [address] PCP - General 12/25/09 Lev Latif MD [address] [place] [address] Referring Cardiology 06/04/18 Branden Hickman MD [address], Desk [address] [place] [address] Primary Staff Physician Cardiology 10/30/18 Extrusion Die Corrector Relationship Specialty Start Date End Date Amilcar Tamayo MD [address] [place] [address] PCP - General 12/25/09 Lev Latif MD [address] [place], [place] [address] Referring Cardiology 06/04/18 Branden Hickman MD [address], Desk [address] [place] [address] Primary Staff Physician Cardiology 10/30/18 Brenda Santizo, TAPER OPERATOR.ELECTROMECHANISMS DESIGN DRAFTER [address] [place] [address] Archives Specialist Internal Medicine 07/22/24 Talib Jung TAPER OPERATOR.LARGE ANIMAL VETERINARIAN [address] [place] [address] Archives Specialist Internal Medicine 07/22/24 Extrusion Die Corrector Relationship Specialty Start Date End Date Amilcar Tamayo MD [address] [place] [address] PCP - General 12/25/09 Lev Latif MD [address] [place] [address] Referring Cardiology 06/04/18 Branden Hickman MD [address], Desk [address] [place] [address] Primary Staff Physician Cardiology 10/30/18 Brenda Santizo, MARCY.ELECTROMECHANISMS DESIGN DRAFTER [address] [place] [address] Archives Specialist Internal Medicine 07/22/24 Talib Jung APRN.LARGE ANIMAL VETERINARIAN [address] [place] [address] Archives Specialist Internal Medicine 07/22/24 Extrusion Die Corrector Relationship Specialty Start Date End Date Amilcar Tamayo MD [address] [place] [address] PCP - General 12/25/09 Lev Latif MD [address] [place] [address] Referring Cardiology 06/04/18 Branden Hickman MD [address], Desk [address] [place] [address] Primary Staff Physician Cardiology 10/30/18 Brenda Santizo, TAPER OPERATOR.ELECTROMECHANISMS DESIGN DRAFTER [address] [place] [address] Archives Specialist Internal Medicine 07/22/24 Talib Jung APRN.LARGE ANIMAL VETERINARIAN [address] [place] [address] [facility] Internal Medicine 11/05/24 Extrusion Die Corrector Relationship Specialty Start Date End Date Amilcar Tamayo MD [address] [place] [address] PCP - General 12/25/09 Lev Latif MD [address] [place], [place] [address] Referring Cardiology 06/04/18 Branden Hickman MD [address] [facility] [place] [address] Primary Staff Physician Cardiology 10/30/18 Brenda Santizo APRN.ELECTROMECHANISMS DESIGN DRAFTER [address] [place] [address] [facility] Internal Medicine 07/22/24 Talib Jung APRN.LARGE ANIMAL VETERINARIAN [address] [place] [address] [facility] Internal Medicine 07/22/24 11/01/24 Talib Jung APRN.LARGE ANIMAL VETERINARIAN [address] [place] [address] [facility] Internal Medicine 11/05/24 Extrusion Die Corrector Relationship Specialty Start Date End Date Amilcar Tamayo MD [address] [place] [address] PCP - General 12/25/09 Lev Latif MD [address] [place] [address] Referring Cardiology 06/04/18 Branden Hickman MD [address], Desk [address] [place] [address] Primary Staff Physician Cardiology 10/30/18 Talib Jung APRN.LARGE ANIMAL VETERINARIAN [address] [place] [address] Archives Specialist Internal Medicine 11/05/24 Brenda Santizo APRN.ELECTROMECHANISMS DESIGN DRAFTER [address] [place] [address] Archives Specialist Internal Medicine 01/01/25 Extrusion Die Corrector Relationship Specialty Start Date End Date Amilcar Tamayo MD [address] [place] [address] PCP - General 12/25/09 Lev Latif MD [address] [place] [address] Referring Cardiology 06/04/18 Branden Hickman MD [address], Desk [address] [place] [address] Primary Staff Physician Cardiology 10/30/18 Talib Jung APRN.LARGE ANIMAL VETERINARIAN [address] [place] [address] Archives Specialist Internal Medicine 11/05/24 Brenda Santizo APRN.ELECTROMECHANISMS DESIGN DRAFTER [address] [place] [address] Archives Specialist Internal Medicine 01/01/25 Extrusion Die Corrector Relationship Specialty Start Date End Date Amilcar Tamayo MD [address] [place] [address] PCP - General 12/25/09 Lev Latif MD [address] [place] [address] Referring Cardiology 06/04/18 Branden Hickman MD [address], Desk [address] [place] [address] Primary Staff Physician Cardiology 10/30/18 Talib Jung, TAPER OPERATOR.LARGE ANIMAL VETERINARIAN [address] [place] [address] Archives Specialist Internal Medicine 11/05/24 Brenda Santizo, TAPER OPERATOR.ELECTROMECHANISMS DESIGN DRAFTER [address] [place] [address] Archives Specialist Internal Medicine 01/01/25 Extrusion Die Corrector Relationship Specialty Start Date End Date Amilcar Tamayo MD [address] [place] [address] PCP - General 12/25/09 Lev Latif MD [address] [place], [place] [address] Referring Cardiology 06/04/18 Branden Hickman MD [address], Desk [address] [place] [address] Primary Staff Physician Cardiology 10/30/18 Talib Jung APRN.LARGE ANIMAL VETERINARIAN [address] [place], [place] [address] [facility] Internal Medicine 11/05/24 Brenda Santizo APRN.ELECTROMECHANISMS DESIGN DRAFTER [address] [place], [place] [address] [facility] Internal Medicine 01/01/25 Reason for Visit (unrecogniz ed section and content) Reason Comments Follow Up Specialty Diagnoses / Procedures Referred By Lindaac t Referred To Contact Diagnoses Atherosclerosis 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 pectoris Procedures CARDIOVASCULAR MEDICINE OP FOLLOW UP APPT ORDER Branden Hickman MD [address] [address] [place] [address] Referral ID Status Reason Start Date Expiration Date V isits Requested Visits Authorized [id number] Closed PCP Requested Referral 06/12/2023 06/11/2024 1 1 Reason Comments Yearly Exam Reason Comments Recheck 12 month Reason Comments Nm Pet Request Reason Comments Medication Authorization Reason Comments Radiology US Specialty Diagnoses / Procedures Referred By Daxa fuentes Referred To Contact US IMAGING Diagnoses Family history of abdominal aortic aneurysm (AAA) Procedures US SCREENING FOR AAA (2017) US ABDOMINAL AORTA REAL TIME SCREEN STUDY AAA Brenda Santizo, MARCY.ELECTROMECHANISMS DESIGN DRAFTER [address] [place] [address] [facility] [place] [address] Referral ID Status Reason Start Date Expiration Date V isits Requested Visits Authorized [id number] Closed Auto-Generate d Referral 05/03/2022 06/02/2023 1 1 Reason Comments Radiology NM Specialty Diagnoses / Procedures Referred By Daxa t Referred To Contact MOLECULAR & FUNCTIONAL IMAGING Diagnoses Atherosclerosis 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 pectoris S/P CABG (coronary artery bypass graft) Procedures NM PET/CT CARDIAC PERF REST/STRESS MYOCRD IMG PET PRFUJ LAP MACHINE TENDER STD RST & STRS CNCRNT CT Branden Hickman MD [address], Desk [address] [place] [address] Molecular & Functional Imaging [address] [place] [address] Referral ID Status Reason Start Date Expiration Date V isits Requested Visits Authorized [id number] Closed Auto-Generate d Referral 06/12/2023 07/11/2024 1 1 Reason Comments F/U 6 months Reason Comments Spirometry Specialty Diagnoses / Procedures Referred By Contac t Referred To Contact [facility] Diagnoses Chronic obstructive pulmonary disease, unspecified COPD type (HCC) Procedures SPIROMETRY WITH DILATOR IF OBSTRUCTED BRNCDILAT RSPSE SPMTRY PRE&POST-BRNCDILAT ADMN Talib Jung APRN.LARGE ANIMAL VETERINARIAN [address] [place] [address] [facility] [address] [place] [address] Referral ID Status Reason Start Date Expiration Date V isits Requested Visits Authorized [id number] Closed Auto-Generate d Referral 01/09/2024 02/07/2025 1 1 Specialty Diagnoses / Procedures Referred By Contac t Referred To [facility] Diagnoses Chronic obstructive pulmonary disease, unspecified COPD type (HCC) Procedures LUNG DIFFUSION CAPACITY (DLCO) DIFFUSING CAPACITY Talib Jung APRN.LARGE ANIMAL VETERINARIAN [address] [place] [address] [address] Referral ID Status Reason Start Date Expiration Date V isits Requested Visits Authorized [id number] Closed Auto-Generate d Referral 01/09/2024 02/07/2025 1 1 Specialty Diagnoses / Procedures Referred By Contac t Referred To [facility] Diagnoses Chronic obstructive pulmonary disease, unspecified COPD type (HCC) Procedures LUNG VOLUMES Talib Jung APRN.LARGE ANIMAL VETERINARIAN [address] [place] [address] [address] Referral ID Status Reason Start Date Expiration Date V isits Requested Visits Authorized [id number] Closed Auto-Generate d Referral 01/09/2024 02/07/2025 1 1 Specialty Diagnoses / Procedures Referred By Contac t Referred To Contact [facility] Diagnoses Chronic obstructive pulmonary disease, unspecified COPD type (HCC) Procedures SPIROMETRY WITH DILATOR IF OBSTRUCTED BRNCDILAT RSPSE SPMTRY PRE&POST-BRNCDILAT ADMN Millie Chester MD [address] [place] [address] [address] Referral ID Status Reason Start Date Expiration Date V isits Requested Visits Authorized [id number] Closed Auto-Generate d Referral 01/30/2024 02/28/2025 1 1 Specialty Diagnoses / Procedures Referred By Contac t Referred To Contact [facility] Diagnoses Chronic obstructive pulmonary disease, unspecified COPD type (HCC) Procedures LUNG DIFFUSION CAPACITY (DLCO) DIFFUSING CAPACITY Millie Chester MD [address] [place] [address] Respiratory [place] [phone] Referral ID Status Reason Start Date Expiration Date V isits Requested Visits Authorized [id number] Closed Auto-Generate d Referral 01/30/2024 02/28/2025 1 1 Reason Comments New Patient COPD Specialty Diagnoses / Procedures Referred By Contac t Referred To Contact [facility] Diagnoses Interstitial pulmonary disease (HCC) Procedures OXIMETRY WITH AMBULATION NONINVASIVE EAR/PULSE OXIMETRY MULTIPLE Millie Espinoza MD [address] [place] [address] [address] Referral ID Status Reason Start Date Expiration Date V isits Requested Visits Authorized [id number] Closed Auto-Generate d Referral 04/30/2024 05/30/2025 [address] Specialty Diagnoses / Procedures Referred By Contac t Referred To Contact CT IMAGING Diagnoses Interstitial pulmonary disease (HCC) Procedures CT CHEST WO IVCON DIAGNOSTIC COMPUTED TOMOGRAPHY THORAX W/O CNTRST Millie Chester MD [address] [place] [address] Ct Imaging [place] [address] Referral ID Status Reason Start Date Expiration Date V isits Requested Visits Authorized [id number] Closed Auto-Generate d Referral 04/30/2024 05/30/2025 1 1 Reason Comments Established Patient Follow-Up Reason Comments F/U 6 months Reason Comments Established Patient 3 month follow up IP F Reason Onset Date Comments Refill Request 09/17/2024 Reason Comments Refill Request Specialty Diagnoses / Procedures Referred By Contac t Referred To Contact [facility] Diagnoses IPF (idiopathic pulmonary fibrosis) ([facility]) Procedures SPIROMETRY WITH DILATOR IF OBSTRUCTED BRNCDILAT RSPSE SPMTRY PRE&POST-BRNCDILAT ADMN Homa Coleman APRN.LARGE ANIMAL VETERINARIAN [address] [place] [address] Phone: tel: fax: [facility] [place] [phone] Referral ID Status Reason Start Date Expiration Date V isits Requested Visits Authorized [id number] Closed Auto-Generate d Referral 12/31/2024 01/30/2026 1 1 Specialty Diagnoses / Procedures Referred By Contac t Referred To Contact [facility] Diagnoses IPF (idiopathic pulmonary fibrosis) ([facility]) Procedures LUNG VOLUMES Homa Coleman APRN.LARGE ANIMAL VETERINARIAN [address] [place] [address] Phone: tel: fax: [address] [phone] Referral ID Status Reason Start Date Expiration Date V isits Requested Visits Authorized [id number] Closed Auto-Generate d Referral 12/31/2024 01/30/2026 1 1 Specialty Diagnoses / Procedures Referred By Contac t Referred To Contact [facility] Diagnoses IPF (idiopathic pulmonary fibrosis) ([facility]) Procedures LUNG DIFFUSION CAPACITY (DLCO) DIFFUSING CAPACITY Homa Coleman APRN.LARGE ANIMAL VETERINARIAN [address] [place] [address] Phone: tel: fax: Respiratory [address] [address] Referral ID Status Reason Start Date Expiration Date V isits Requested Visits Authorized [id number] Closed Auto-Generate d Referral 12/31/2024 01/30/2026 1 1 Reason Comments F/U 6 Month Reason Onset Date Comments Engineering Mechanic- 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 [facility] [employer] [facility]. provides no warranty or guarantee of the accuracy or completeness of information in this document.
[2025-04-27 17:24] LABS: Hematocrit 42.8 % (40-54); Hemoglobin 14.2 g/dL (13.0-16.5); Immature Granulocytes Count 0.020 X10^3/uL (0.0-0.0); Mean Corp Hgb Conc 33.2 g/dL (32-36); Mean Corpuscular Volume 93.2 fL (80-94); Mean Platelet Vol. 11.8 fl (6.2-12.0); NRBC Flagged by Analyzer 0 % (0-5); Platelet Count 111 K/mm3 (150-450); RBC Distribution Width CV 13.6 % (11.6-14.6); RBC Distribution Width SD 46.6 fl (35.1-43.9); Red Blood Count 4.59 M/mm3 (4.6-6.2); White Blood Count 9.0 K/mm3 (4.4-11.0)
[2025-04-27 17:43] LABS: Prothrombin Time (Protime)PT. 14.1 SECONDS (11.7-14.9)
[2025-04-27 17:44] LABS: Partial Thromboplast Time 26.5 Seconds (24.1-36.2)
[2025-04-27 18:05] LABS: Anion Gap 12 (5-15); BUN 17 mg/dL (4-19); BUN/Creat Ratio 20.9 RATIO (10-20); Calcium,Total 8.9 mg/dL (7.6-11.0); Carbon Dioxide 23.6 mmol/L (21.0-32.0); Chloride 103 mmol/L (98-108); Estimated Creatinine Clearance 75.45 ml/min (50-250); Glucose 112 mg/dL (70-99); Potassium 3.7 mmol/L (3.3-5.1); Pro- Brain NATRIURETIC PEPTIDE 223 pg/mL (<=1800); Troponin T High Sensitivity 21 ng/L (<=22)
[2025-04-27 18:31] LABS: D-Dimer Quantitative (DVT/PE) 12.60 FEU/ug/m (0.27-0.49)
--- NOTE | 2025-04-27 18:33 | CT_ITS ---
PROCEDURE: CTA CHEST W/WO CONTRAST 04/27/2025 REASON FOR EXAM: HYPOXIA WITH ELEVATED D-DIMER. TECHNIQUE: Procedure Code: [id number] Modality: CT Procedure: CTA CHEST W/WO CONTRAST Axial CTA images obtained of the chest after the administration of intravenous contrast. MIP reconstructed images were created and reviewed. CONTRAST: Isovue 370 VOLUME: 100 mL One or more dose reduction techniques were used (e.g., Automated exposure control, adjustment of the mA and/or kV according to patient size, use of iterative reconstruction technique). RADIATION DOSE SUMMARY: CTDlvol: 14.25, 8.55 mGy DLP: 334.6 mGycm COMPARISON: None. FINDINGS: PULMONARY ARTERIES Multiple hypodense intraluminal filling defects with saddle emboli in the distal right and left pulmonary arteries extending into all segmental and many subsegmental pulmonary arteries bilaterally. AORTA No thoracic aortic aneurysm or dissection. Scattered calcified atherosclerosis. LUNGS No pulmonary mass. Bilateral reticular pattern and groundglass opacification with a subpleural and basilar distribution with traction bronchiectasis and honeycombing. Scattered tree-in-bud nodules bilaterally. PLEURAL SPACES No pleural effusion. No pneumothorax. HEART Mild cardiomegaly. Elevated RV/LV ratio of 1.7. No significant pericardial effusion. Coronary artery calcification with prior CABG. Sternal wires are present. MEDIASTINUM/HILUM No significant lymphadenopathy. Calcified mediastinal and bilateral hilar lymph nodes. CHEST WALL The chest wall is unremarkable. BONES No focal osseous abnormality or acute fracture. UPPER ABDOMEN Small hiatal hernia. Multiple calcified hepatic and splenic granulomas. CT/CTA Chest W/WO Contrast IMPRESSION: 1. Acute pulmonary emboli bilaterally with saddle emboli in the distal right a nd left pulmonary arteries extending into segmental and subsegmental pulmonary arteries bilaterally. Moderate clot burde n. Evidence of right heart strain. 2. Usual interstitial pneumonia (UIP) pattern of interstitial lung disease. 3. Scattered tree-in-bud nodules bilaterally, can be seen with mucoid impactio n or endobronchial spread of infection. Red Alert: Acute pulmonary emboli bilaterally with saddle emboli in the distal right and left pulmonary arteries extending into segmental and subsegmental pulmonary arteries bilaterally. Moderate clot burde n. Evidence of right heart strain. The critical findings in the findings and impression above were relayed directl y by me by telephone to Dr. [place] On 04/27/2025 at 4:59 pm [place] standard time with readback verification. Reading Location: [id number]
[2025-04-27 19:24] LABS: Troponin T High Sens 2 HR 25 ng/L (<=22)
--- NOTE | 2025-04-27 20:05 | PCM.HP.STD ---
[facility] - General General Date of Admission: 04/27/25 Date of Service: 04/27/25 Chief Complaint: SOB. [facility] Narrative MARSHAL CARRILLO, is a 79 M with a past medical history of essential hypertension; on metoprolol, hyperlipidemia; on rosuvastatin and ezetimibe, former tobacco abuse, CAD; s/p UT and CABG x 3 (~1985) with subsequent stents x 3 (~2011/~2014) on clopidogrel daily plus as needed SL NTG, history of SVT, history of PVC's/PAC's, history of COVID-19, pulmonary fibrosis; on nintedanib (not on home oxygen), history of skin cancer; s/p Mohs micrographic surgery (~2015), GERD; with history of GI bleed (leading to discontinuation of aspirin) on omeprazole and OA; and recent admission here who presents to [facility] ER complaining of shortness of breath. Mr. Carrillo reports his symptoms began around noon today with a gradual-onset of dyspnea on exertion that progressed to shortness of breath at rest. He admits his symptoms are made worse with exertion but he denies associated chest pain, leg swelling, calf pain, history of VTE, recent travel/surgery/immobilization. He denies being on home oxygen in addition to recent illness or medication changes. He additionally denies associated fever, chills, runny nose, sore throat, ear pain, chest pain, palpitations, heart racing, lower extremity edema, cough, abdominal pain, nausea, vomiting, diarrhea, constipation, dysuria, hematuria, arthralgias, myalgias, headache or rash. In the ER he was noted to have a critically elevated D-dimer of 12.6 present on admission with a subsequent CTA of the chest with IV contrast that revealed acute pulmonary emboli bilaterally with saddle emboli in the distal Right and Left pulmonary arteries extending into the segmental and subsegmental pulmonary arteries bilaterally with moderate clot burden and evidence of Right heart strain with additional evidence of unusual interstitial pneumonia pattern of interstitial lung disease with scattered tree-in-bud nodules bilaterally which can be seen with mucoid impaction or endobronchial spread of infection complicated by clinical evidence of Acute Respiratory Insufficiency and laboratory evidence of moderate Thrombocytopenia with 111K and mildly elevated second troponin T of 25 ng/L suspected to be due to acute heart strain from PE. He was then admitted to the PCU for ongoing care for status is expected to extend beyond 2 midnights. [facility] Medical History (Updated 04/27/25 @ 22:[address] Jesus Novak DO) GI bleed Former smoker Pulmonary fibrosis COVID-19 Encounter for screening for COVID-19 HLD (hyperlipidemia) Pure hypercholesterolemia Screening for intestinal cancer Essential hypertension Diaphoresis Lightheaded Hematemesis Premature ventricular contraction Premature atrial contractions Paroxysmal ventricular tachycardia Atherosclerotic heart disease of [place] coronary artery without angina pectoris Presence of stent in coronary artery (~12/03/14) Encounter for long-term current use of high risk medication Supraventricular tachycardia Old myocardial infarction Home Medications ?Medication ?Instructions ?Recorded ?Last Taken ?Type coenzyme Q10 100 mg capsule 100 mg PO DAILY 11/23/17 Unknown History lutein 6 mg capsule 6 mg PO DAILY 11/27/17 Unknown History clopidogrel 75 mg tablet 75 mg PO DAILY #90 tabs 08/29/22 Unknown Rx ezetimibe 10 mg tablet 10 mg PO DAILY #90 tabs 08/29/22 Unknown Rx metoprolol succinate 25 mg 25 mg PO QHS #90 tabs 08/29/22 Unknown Rx tablet,extended release 24 hr pantoprazole 20 mg tablet,delayed 20 mg PO DAILY 10/13/22 Unknown History release nitroglycerin 0.4 mg sublingual 0.4 mg sublingual Q5-15M PRN Chest 04/18/23 Unknown Rx tablet (Nitrostat) pain #25 tabs rosuvastatin 40 mg tablet 40 mg PO DAILY 09/07/23 Unknown History nintedanib 150 mg capsule (Ofev) 150 mg PO Q12H 04/27/25 Unknown History Allergy/AdvReac Type Severity Reaction Status Date / Time No Known Allergies Allergy Verified 04/27/25 16:20 Family History Father CAD (coronary artery disease) Mother CAD (coronary artery disease) Myocardial infarction Sister Diabetes Arthritis Surgical History Cataract extraction status, right eye Presence of coronary angioplasty implant and graft (~12/03/14) History of Mohs micrographic surgery for skin cancer History of local excision of skin lesion Postsurgical percutaneous transluminal coronary angioplasty (PTCA) status Aortocoronary bypass status (~07/1986) Social History Smoking Status: Former smoker alcohol intake: never substance use type: does not use caffeine: Yes Type: carbonated beverages what type of physical activity do you participate in: walking frequency: 5-6 times per week duration: 45-60 minutes/day seatbelt use: always do you feel safe at home: Yes ROS ROS Narrative Review of Systems: Constitutional: Patient denies fever or chills. Eyes: Patient denies changes in vision or discharge from eyes. ENT: Patient denies runny nose, sore throat or ear pain. Resp: Patient admits to dyspnea on exertion the progressive shortness of breath at rest made worse with activity as per HPI. He denies cough. GI: Patient denies abdominal pain, nausea, vomiting, diarrhea or constipation. : Patient denies dysuria or hematuria. MSK: Patient denies arthralgias or myalgias. Skin: Patient denies rash, abscess, wounds or jaundice. Psych: Patient denies symptoms uncontrolled depression or anxiety. Neuro: Patient denies headache, paresthesias or focal neurologic deficits. Allergy: Patient denies lip swelling, tongue swelling or urticaria. Hematology: Patient denies easy bleeding or easy bruisability. Endocrinology: Patient denies polyuria, polydipsia, polyphagia or heat/cold intolerance. 14 point ROS otherwise negative except for positives noted above HPI. Vital Signs Vital Signs Vital Signs: 04/27/25 16:18 04/27/25 16:20 04/27/25 16:20 Temperature 97.8 F 97.8 F Temperature Source Oral Oral Pulse Rate 134 H 107 H Respiratory Rate 20 H 15 Respiratory Effort Respiratory Depth Respiratory Pattern Blood Pressure 185/93 H 158/79 H Blood Pressure Mean 123 105 Pulse Ox 81 98 100 Oxygen Delivery Method Room Air Nasal Cannula Nasal Cannula Oxygen Flow Rate (L/min) 4 2 04/27/25 16:37 04/27/25 16:38 04/27/25 17:18 Temperature Temperature Source Pulse Rate 82 Respiratory Rate 16 Respiratory Effort Short of Breath Respiratory Depth Normal Respiratory Pattern Normal Blood Pressure 137/77 H Blood Pressure Mean 97 Pulse Ox 100 100 Oxygen Delivery Method Nasal Cannula Nasal Cannula Nasal Cannula Oxygen Flow Rate (L/min) 4 2 1 04/27/25 17:20 04/27/25 18:00 04/27/25 18:00 Temperature 97.9 F 97.9 F Temperature Source Oral Oral Pulse Rate 82 82 82 Respiratory Rate 16 16 Respiratory Effort Respiratory Depth Respiratory Pattern Blood Pressure 137/77 H 137/77 H Blood Pressure Mean 97 97 Pulse Ox 100 100 Oxygen Delivery Method Nasal Cannula Nasal Cannula Oxygen Flow Rate (L/min) 1 1 04/27/25 18:07 04/27/25 18:10 04/27/25 18:15 Temperature Temperature Source Pulse Rate 82 84 89 Respiratory Rate 18 19 H 23 H Respiratory Effort Respiratory Depth Respiratory Pattern Blood Pressure 133/74 H 148/78 H Blood Pressure Mean 93 98 Pulse Ox 100 100 100 Oxygen Delivery Method Oxygen Flow Rate (L/min) 04/27/25 18:20 04/27/25 18:25 04/27/25 18:30 Temperature Temperature Source Pulse Rate 87 87 Respiratory Rate 20 H 20 H Respiratory Effort Respiratory Depth Respiratory Pattern Blood Pressure 150/77 H 144/78 H 156/87 H Blood Pressure Mean 98 99 109 Pulse Ox 100 100 Oxygen Delivery Method Oxygen Flow Rate (L/min) 04/27/25 18:35 04/27/25 18:36 04/27/25 18:45 Temperature 97.9 F Temperature Source Oral Pulse Rate 106 H 81 92 Respiratory Rate 24 H 16 26 H Respiratory Effort Respiratory Depth Respiratory Pattern Blood Pressure 172/78 H 172/78 H Blood Pressure Mean 104 109 Pulse Ox 99 100 99 Oxygen Delivery Method Nasal Cannula Oxygen Flow Rate (L/min) 1 04/27/25 19:00 Temperature Temperature Source Pulse Rate 99 Respiratory Rate 22 H Respiratory Effort Respiratory Depth Respiratory Pattern Blood Pressure Blood Pressure Mean Pulse Ox 99 Oxygen Delivery Method Oxygen Flow Rate (L/min) Weight Weight: 166 lb 7.184 oz Body Mass Index (BMI) 22.6 Physical Exam Const alert, oriented x3, no apparent distress and average body habitus General Appearance: cooperative HEENT normocephalic, head/scalp atraumatic, hearing grossly normal bilaterally and moist oral mucous membranes Eyes PERRL, EOMs intact bilaterally and conjunctivae normal Neck no lymphadenopathy, supple and no JVD Resp normal respiratory effort, no retractions, no use of accessory muscles and clear to auscultation bilaterally Cardio regular rate and regular rhythm GI normal to inspection, nondistended, normoactive bowel sounds, soft to palpation, non-tender and non-distended Extremity normal to inspection, full ROM and no clubbing, cyanosis or edema Skin Skin Narrative: Patient also has rash, abscess, wounds or jaundice. Neuro oriented x3, CN's II-XII intact bilaterally, moves all extremities and no focal motor deficits Sensorium / Orientation: awake, alert, oriented to person, oriented to place and oriented to time Speech: speech normal Psych affect normal Results Medical Records Data Attestation: I reviewed the patient's medical records Lab / Micro Data Attestation: I reviewed the patient's lab results. 04/28/25 03:07 04/28/25 03:07 Labs: Laboratory Results - last 24 hr 04/27/25 16:32: WBC 9.0, RBC 4.59 L, Hgb 14.2, Hct 42.8, MCV 93.2, MCH 30.9, MCHC 33.2, RDW Std Deviation 46.6 H, RDW Coeff of [place] 13.6, Plt Count 111 L, MPV 11.8, Immature Gran % (Auto) 0.200, Neut % (Auto) 55.3, Lymph % (Auto) 31.0, Cotton % (Auto) 9.5, Eos % (Auto) 3.6, Baso % (Auto) 0.4, Absolute Neuts (auto) 5.0, Absolute Lymphs (auto) 2.79, Nucleated RBC % 0, PT 14.1, INR 1.1, APTT 26.5, D-Dimer Quant (PE/DVT) 12.60 H*, Sodium 139, Potassium 3.7, Chloride 103, Carbon Dioxide 23.6, Anion Gap 12, BUN 17, Creatinine 0.82, Estim Creat Clear Calc 75.45, Est GFR (MDRD) Non-Af 88, BUN/Creatinine Ratio 20.9 H, Glucose 112 H, Calcium 8.9, Troponin T High Sens 21, NT pro BNP II 223 04/27/25 16:56: NT pro BNP II Cancelled 04/27/25 18:30: Troponin T Hi Sens 2 Hr 25 H Rhythm Strip Rhythm Strip: Sinus Tach Rate: 104 Ectopy: None Imaging Radiology Impression Chest X-Ray 04/27/25 16:48 IMPRESSION: 1. Small bibasilar opacities, likely atelectasis or infiltrates. 2. Bilateral interstitial coarsening, suggesting interstitial lung disease. Reading Location: [id number] Imaging Services [address] [place] [address] [id number] CTA Chest W/WO Contrast MR#: [id number] Acct: [id number] Name: MARSHAL CARRILLO Rep #: [id number] : 1945 79 From: Emily Breaux MD PCP: Dr. Becky Cabral MD Status: [facility] Study: CTA Chest W/WO Contrast Date of Exam: 04/27/25 Exam# [id number] Ordering Dr: Maverick Paris MD PROCEDURE: CTA CHEST W/WO CONTRAST 04/27/2025 REASON FOR EXAM: HYPOXIA WITH ELEVATED D-DIMER. TECHNIQUE: Procedure Code: [id number] Modality: CT Procedure: CTA CHEST W/WO CONTRAST Axial CTA images obtained of the chest after the administration of intravenous contrast. MIP reconstructed images were created and reviewed. CONTRAST: Isovue 370 VOLUME: 100 mL One or more dose reduction techniques were used (e.g., Automated exposure control, adjustment of the mA and/or kV according to patient size, use of iterative reconstruction technique). RADIATION DOSE SUMMARY: CTDlvol: 14.25, 8.55 mGy DLP: 334.6 mGycm COMPARISON: None. FINDINGS: PULMONARY ARTERIES Multiple hypodense intraluminal filling defects with saddle emboli in the distal right and left pulmonary arteries extending into all segmental and many subsegmental pulmonary arteries bilaterally. AORTA No thoracic aortic aneurysm or dissection. Scattered calcified atherosclerosis. LUNGS No pulmonary mass. Bilateral reticular pattern and groundglass opacification with a subpleural and basilar distribution with traction bronchiectasis and honeycombing. Scattered tree-in-bud nodules bilaterally. PLEURAL SPACES No pleural effusion. No pneumothorax. HEART Mild cardiomegaly. Elevated RV/LV ratio of 1.7. No significant pericardial effusion. Coronary artery calcification with prior CABG. Sternal wires are present. MEDIASTINUM/HILUM No significant lymphadenopathy. Calcified mediastinal and bilateral hilar lymph nodes. CHEST WALL The chest wall is unremarkable. BONES No focal osseous abnormality or acute fracture. UPPER ABDOMEN Small hiatal hernia. Multiple calcified hepatic and splenic granulomas. CT/CTA Chest W/WO Contrast IMPRESSION: 1. Acute pulmonary emboli bilaterally with saddle emboli in the distal right and left pulmonary arteries extending into segmental and subsegmental pulmonary arteries bilaterally. Moderate clot burden. Evidence of right heart strain. 2. Usual interstitial pneumonia (UIP) pattern of interstitial lung disease. 3. Scattered tree-in-bud nodules bilaterally, can be seen with mucoid impaction or endobronchial spread of infection. Red Alert: Acute pulmonary emboli bilaterally with saddle emboli in the distal right and left pulmonary arteries extending into segmental and subsegmental pulmonary arteries bilaterally. Moderate clot burden. Evidence of right heart strain. The critical findings in the findings and impression above were relayed directly by me by telephone to Dr. Moct[place] On 04/27/2025 at 4:59 pm [place] standard time with readback verification. Reading Location: [facility] CC: Dr. Maverick Prais MD; Dr. Becky Cabral MD ~ Supply Chain Logistics Manager: Signed Assessment & Plan Assessment/Plan (1) Bilateral pulmonary embolism: (2) Respiratory insufficiency: (3) Elevated troponin: (4) Hx of pulmonary fibrosis: (5) Thrombocytopenia: (6) GERD (gastroesophageal reflux disease): QUALIFIERS: Esophagitis presence: esophagitis presence not specified Qualified Code(s): K21.9 - Gastro-esophageal reflux disease without esophagitis (7) History of GI bleed: (8) Aortocoronary bypass status: (9) Presence of stent in coronary artery: (10) Old myocardial infarction: PLAN: Plan 1. Critically elevated D-dimer of 12.6 present on admission with a subsequent CTA of the chest with IV contrast that revealed acute pulmonary emboli bilaterally with saddle emboli in the distal Right and Left pulmonary arteries extending into the segmental and subsegmental pulmonary arteries bilaterally with moderate clot burden and evidence of Right heart strain with additional evidence of unusual interstitial pneumonia pattern of interstitial lung disease with scattered tree-in-bud nodules bilaterally which can be seen with mucoid impaction or endobronchial spread of infection in the setting of previously known Pulmonary Fibrosis - Admit to PCU. Maintain IV heparin begun in ER and titrate per protocol. We will also check echocardiogram to evaluate LVEF with CT evidence of Right heart strain. Serialize troponin with a mildly elevated second troponin of 25 ng/L. Started on IV piperacillin-tazobactam for coverage of possible superimposed pneumonia in the setting of previously known interstitial lung disease. Continue nintedanib as before. Check lower extremity Doppler to evaluate for residual clot burden. Give ondansetron IV as needed for nausea vomiting. Give acetaminophen as needed for [id number] (level 1-5/10) pain or fever. Give morphine IV as needed for severe (level 6-10/10) pain. Finally, we will consult vascular surgery this is patient for further recommendations with help appreciated in advance. 2. Acute Respiratory Insufficiency due to #1 - Wean supplemental oxygen as tolerated. 3. Thrombocytopenia with 111K present on admission complicating #1 & #2 - Check CBC daily to follow trend and stop heparin if platelet count dips < 100K. 4. GERD; with history of GI bleed (leading to discontinuation of aspirin) on omeprazole adding to the medical complexity of #1 - #3 - Noted with no signs of bleeding at this time. Hemoccult stools. Type & Screen blood in case bleeding ensues and transfuse for hemoglobin <7 g/dL. 5. CAD; s/p UT and CABG x 3 (~1985) with subsequent stents x 3 (~2011/~2014) on clopidogrel daily plus as needed SL NTG - Maintain current regimen for now but stop clopidogrel if bleeding is detected. 6. Essential hypertension; on metoprolol - Resume metoprolol plus give hydralazine IV prn for systolic blood pressure > 160 mmHg. 7. Hyperlipidemia; on rosuvastatin and ezetimibe - Continue current therapy plus check Lipid Profile. 8. Former tobacco abuse - Noted. 9. History of SVT plus PVC's/PAC's - Apparently stable with no evidence of recurrence at this time. 10. History of COVID-19 - Noted. 11. History of skin cancer; s/p Mohs micrographic surgery (~2015) - Noted for the sake of completeness. 12. OA - Give acetaminophen prn as outlined in #1. 13. DVT/GI prophylaxis - Patient on IV heparin for #1. Continue Pantoprazole 20 mg PO daily. Total time: Approximately (but not less than) 75 minutes. Charges/Coding Visit Charges Inpatient E&M: 54889 Init Hosp L3
--- NOTE | 2025-04-27 20:45 | ECHOD_ITS ---
Reason For Study Reason For Study: EMBOLI Procedure This was a 2D Doppler, Color Flow transthoracic echocardiogram. Exam performed portable in patient room. Left Ventricle Normal LV size. Mild concentric left ventricular hypertrophy. Stage 1 diastolic dysfunction. The left ventricular ejection fraction is 55 %. Right Ventricle Normal RV size. Normal systolic function. Atria The left atrium is severely enlarged. The right atrium is mildly enlarged. Mitral Valve The mitral valve is structurally normal. No prolapse or stenosis seen. Trivial mitral valve insufficiency. Tricuspid Valve Normal tricuspid valve. Mild (1+) tricuspid valve insufficiency. Pulmonary artery systolic pressure is 38 mmHg. Aortic Valve Trisinus/trileaflet aortic valve. Mild focal aortic valve thickening. There is no aortic stenosis. Trivial aortic valve insufficiency. Pulmonic Valve Normal pulmonic valve. Mild (1+) pulmonic valve insufficiency. Great Vessels Normal sized aortic root. Pericardium/Pleural No pericardial effusion. MMode/2D Measurements & Calculations LVIDd: 4.7 cm IVSd: 1.2 cm Ao root diam: 3.2 cm LVIDs: 3.7 cm LVPWd: 1.3 cm LA dimension: 4.9 cm RVDd: 3.8 cm FS: 20.1 % LAV(MOD-bp): 62.5 ml LVAd ap4: 28.9 cm2 SV(MOD-sp4): 58.4 ml LAV(MOD-bp) Indexed: 31.8 ml/m2 LVLd ap4: 7.5 cm SI(MOD-sp4): 29.7 ml/m2 LAV(MOD-sp2): 47.9 ml EDV(MOD-sp4): 93.2 ml LAV(MOD-sp4): 70.1 ml EDV(sp4-el): 94.7 ml LVAs ap4: 15.8 cm2 LVLs ap4: 6.0 cm ESV(MOD-sp4): 34.8 ml ESV(sp4-el): 35.6 ml EF(MOD-sp4): 62.7 % EF(sp4-el): 62.4 % SV(sp4-el): 59.1 ml LA A4 area: 22.4 cm2 LA dimension(2D): 5.1 cm RA A4 area: 11.9 cm2 Time Measurements MV dec time: 0.23 sec Doppler Measurements & Calculations MV E max alonso: 71.3 cm/sec Lat Peak E' Alonso: 11.3 cm/sec Med Peak E' Alonso: 5.0 cm/sec MV A max alonso: 69.0 cm/sec E/E' lat: 6.3 E/E' med: 14.4 MV E/A: 1.0 MV V2 max: 79.3 cm/sec Ao V2 max: 114.2 cm/sec MV max P.5 mmHg MV dec slope: 319.9 cm/sec2 Ao max P.2 mmHg MV V2 mean: 49.8 cm/sec Ao V2 mean: 77.6 cm/sec MV mean P.1 mmHg Ao mean P.8 mmHg MV V2 VTI: 30.8 cm Ao V2 VTI: 30.2 cm AV (velocity ratio): 0.89 LV V1 max: 102.0 cm/sec PA V2 max: 80.8 cm/sec TR max alonso: 296.9 cm/sec LV V1 max P.2 mmHg PA V2 mean: 65.5 cm/sec TR max P.3 mmHg LV V1 mean P.1 mmHg LV V1 mean: 66.5 cm/sec LV V1 VTI: 26.8 cm ECHO/Echo Complete Interpretation Summary The left ventricular ejection fraction is 55 %. Stage 1 diastolic dysfunction. Mild concentric left ventricular hypertrophy. Mild (1+) tricuspid valve insufficiency. Mild focal aortic valve thickening. The left atrium is severely enlarged. The right atrium is mildly enlarged. Ordering Physician: Jesus Novak Referring Physician: Becky Cabral M.D. Performed By: Christina Herrmann RCS
[2025-04-27] MEDS: HEPARIN/D5w 25,000 UNITS 25,000 UNITS/250 ML IV.SOLN. 9.1 UNITS CONT INF (20:49)
[2025-04-27] MEDS: Heparin Injection (Vial) 5,000 UNIT/ML VIAL 4000 UNIT IV (20:49)
--- OUTSIDE RECORDS SUMMARY | 2025-04-27 20:51 | XMS RPT_ITS | CCD ---
Author Organization [facility] Care Team Providers Care Retreader Name Role Phone Lev Latif MD Unavailable [...] MD Unavailable Talampas, Amilcar D Referring Unavailable Montrell, Dale Attending Unavailable Talampas, Amilcar D Primary Care Unavailable Talampas, Amilcar D Referring Unavailable Marsh Jonathan Attending Unavailable Talampas, Amilcar D Primary Care Unavailable Talampas, Amilcar D Referring Unavailable Talampas, Amilcar D Primary Care Unavailable Maximo Jonathan Attending Unavailable Talampas, Amilcar D Primary Care Unavailable Jose, Selma Attending Unavailable Talampas, Amilcar D Primary Care Unavailable Marsh Jonathan Attending Unavailable Talampas, Amilcar D Referring Unavailable Talampas, Amilcar D Primary Care Unavailable Jose, Kirby Attending Unavailable Demarcus Greene Attending Unavailable Talampas, Amilcar D Primary Care Unavailable Scottampas Amilcar PAZ Primary Care Provider Bhavya PAZ, Lev Noel Unavailable Lev Latif MD Unavailable [phone] Lev Latif MD Unavailable Santizo PRODUCT DESIGN SPECIALIST.ARMATURE STRAIGHTENER, Brenda Unavailable Shawn PRODUCT DESIGN SPECIALIST.PRESS ROOM SUPERVISOR, Talib Unavailable Shawn PRODUCT DESIGN SPECIALIST.PRESS ROOM SUPERVISOR, Talib Unavailable Shawn PRODUCT DESIGN SPECIALIST.PRESS ROOM SUPERVISOR, Talib Unavailable Santizo PRODUCT DESIGN SPECIALIST.ARMATURE STRAIGHTENER, Brenda Unavailable TALAMPAS, AMILCAR D Primary Care [...] TALAMPAS, AMILCAR D Primary Care Unavailable BRANDEN HICKMAN Referring Unavailable BRANDEN HICKMAN Attending Unavailable TALAMPAS, [...] (PLAVIX) 75 mg tablet Indications: 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 ubidecarenone 100 mg oral capsule (20 sources) Start: 11-23-2017 Coenzyme Q10 Active 100 MG PO DAILY November 23, 2017 12:03pm Start: 11-07-2011 take 1 tablet by harvey th once daily CO Q-10 100 MG CAPS One tablet by mouth daily COENZYME Q10 [id number] Lev Latif MD Start: 11-07-2011 take 1 tablet by harvey th once daily CO Q-10 100 MG CAPS One tablet by mouth daily COENZYME Q10 [id number] Lev Latif MD Comment on above: Take 100 mg by mouth once daily. 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 90 tablet 3 07/01/2024 07/01/2025 Active Start: 11-23-2017 End: 11-27-2017 take 25 mg by mouth once daily Metoprolol Succinate Di scontinued 25 MG PO daily November 23, 2017 12:04pm November 27, 2017 1:45pm Start: 05-29-2013 take 1 tablet by harvey th once daily METOPROLOL SUCCINATE ER 25 MG [id number] One tablet by mouth daily METOPROLOL SUCCINATE 69708455214 Lev Latif MD Start: 02-15-2011 take 1 tablet by harvey th once daily TOPROL XL 50 MG [id number] One tablet by mouth daily METOPROLOL SUCCINATE 45807564850 Lev Latif MD Start: 02-15-2011 take 1 tablet by harvey th once daily TOPROL XL 50 MG [id number] One tablet by mouth daily METOPROLOL SUCCINATE 28030774576 Lev Latif MD Comment on above: Take [...] 0.4 mg SL tablet Indications: 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 If no pain relief call 911. 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 Take 1 tablet [...] TABS One tablet by mouth daily ASPIRIN [id number] Ira Cowan Start: 02-15-2011 take 1 tablet by harvey th once daily ASPIRIN 81 MG TABS One tablet by mouth daily ASPIRIN 50651701132 Yessy Dumont RN Start: 02-15-2011 take 1 tablet by harvey th once daily ASPIRIN EC 81 MG TBEC One tablet by mouth daily ASPIRIN 07417084433 Lev Latif MD atorvastatin 80 mg oral [...] One-half tablet by mouth daily ATORVASTATIN CALCIUM 03507073364 Lev Latif MD Start: 02-15-2011 take 1 tablet by harvey th once daily LIPITOR 40 MG TABS One tablet by mouth daily ATORVASTATIN CALCIUM 67391141463 Lev Latif MD Comment on above: Take 1 tablet by harvey th once daily. As directed Flaxseed extract (3 sources) Non-Standardized Food Allergenic Extract, Non-Standardized Plant Allergenic Extract Start: 05-01-2017 take 1 tablet by mouth once daily FLAX SEED OIL CAPS One tablet by mouth daily FLAXSEED (LINSEED) CAPS 27311241570 Lev Latif MD Start: 05-01-2017 take 1 tablet by harvey th once daily FLAX SEED OIL CAPS One tablet by mouth daily FLAXSEED (LINSEED) CAPS 15437125768 Lev Latif MD linseed oil 1000 mg [...] One tablet by mouth daily MULTIPLE VITAMIN 79172377721 Ira Cowan MULTIPLE VITAMIN (2 sources) Start: 02-15-2011 take 1 tablet by mouth once daily MULTIVITAMINS TABS One tablet by mouth daily MULTIPLE VITAMIN 04752481631 Ira Bass Cowan Start: 02-15-2011 take 1 tablet by harvey th once daily MULTIVITAMINS TABS One tablet by mouth daily MULTIPLE VITAMIN 32184504841 Ira Shelia Camryn 24 hr niacin 1000 [...] (ER) One tablet by mouth daily NIACIN [id number] Ira M Camryn Problems Active Problems Problem [...] current use of drug therapy; Translations: [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] 01-20-2025 Episodic Other injuries [...] (2 sources) Long-term drug therapy; Translations: [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] Onset: 02-15-2011 02-15-2011 Viral [...] 03-04-2019 Episodic Other aftercare (4 sources) 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; Translations: [Other senior care (current) drug therapy] Onset: 02-15-2011 02-15-2011 Episodic [...] (Bld)on 01-20-2025 Basophils (Bld) [#/Vol] 0.05 10*3/uL [facility] Basophils/100 WBC (Bld) 0.7 % [facility] Differential cell count method Nom (Bld) Auto [facility] Eosinophils (Bld) [#/Vol] 0.24 10*3/uL [facility] Eosinophils/100 WBC (Bld) 3.4 % [facility] Erythrocyte distribution width (RBC) [Ratio] 13.3 % 11.5 - 15.0 % [facility] Hematocrit (Bld) [Volume fraction] 43.7 % 39.0 - 51.0 % [facility] Hemoglobin (Bld) [Mass/Vol] 14.3 g/dL 13.0 - 17.0 g/dL [facility] Immature granulocytes (Bld) [#/Vol] [facility] Immature granulocytes/100 WBC (Bld) 0.1 % [facility] Interpretation and review of laboratory results Abnormal [facility] Lymphocytes (Bld) [#/Vol] 1.67 10*3/uL [facility] Lymphocytes/100 WBC (Bld) 23.4 % [facility] MCH (RBC) [Entitic mass] 31.2 pg 26.0 - 34.0 pg [facility] MCHC (RBC) [Mass/Vol] 32.7 g/dL 30.5 - 36.0 g/dL [facility] MCV (RBC) [Entitic vol] 95.4 fL 80.0 - 100.0 fL [facility] Monocytes (Bld) [#/Vol] 0.69 10*3/uL [facility] Monocytes/100 WBC (Bld) 9.7 % [facility] Neutrophils (Bld) [#/Vol] 4.47 10*3/uL [facility] Neutrophils/100 WBC (Bld) 62.7 % [facility] Nucleated RBC (Bld) [#/Vol] NINF [facility] Nucleated RBC/100 WBC (Bld) [Ratio] 0 % /100 WBC [facility] Platelet mean volume (Bld) [Entitic vol] 11.9 fL 9.0 - 12.7 fL [facility] Platelets (Bld) [#/Vol] 137 10*3/uL Low [facility] RBC (Bld) [#/Vol] 4.58 10*6/uL 4.20 - 6.00 m/uL [facility] WBC (Bld) [#/Vol] 7.13 10*3/uL [facility] Basophils (Bld) [#/Vol] 0.05 10*3/uL Normal <0.11 [facility] Comment on above: Order Comment: Speci men Type: BLOOD SPECIMENOrdering Facility: [facility] Address: [address] [place] [address] Performed By: #### 5 7021-8 ####[facility] LABIA [id number] [place] [address] [place] Basophils/100 WBC (Bld) 0.7 % Normal [facility] Comment on above: Order Comment: Speci men Type: BLOOD SPECIMENOrdering Facility: [facility] Address: [address] [place] [address] Performed By: #### 5 7021-8 ####[facility] LABCLIA [id number] [place] [address] [place] Differential cell count method Nom (Bld) Auto Normal [facility] Comment on above: Order Comment: Speci men Type: BLOOD SPECIMENOrdering Facility: [facility] Address: [address] [place] [address] Performed By: #### 5 7021-8 ####[facility] LABCLIA [id number] [place] [address] [place] Eosinophils (Bld) [#/Vol] 0.24 10*3/uL Normal <0.46 [facility] Comment on above: Order Comment: Speci men Type: BLOOD SPECIMENOrdering Facility: [facility] Address: [address] [place] [address] Performed By: #### 5 7021-8 ####[facility] LABCLIA [id number] [facility]UEKAIS[facility] [place] [address] [place] Eosinophils/100 WBC (Bld) 3.4 % Normal [facility] Comment on above: Order Comment: Speci men Type: BLOOD SPECIMENOrdering Facility: [facility] Address: [address] [place] [address] Performed By: #### 5 7021-8 ####[facility] LABCLIA [id number] [facility] [address], [place] [address] [place] Erythrocyte distribution width (RBC) [Ratio] 13.3 % Normal 11.5-15.0 [facility] Comment on above: Order Comment: Speci men Type: BLOOD SPECIMENOrdering Facility: [facility] Address: [address] [place] [address] Performed By: #### 5 7021-8 ####[facility] LABCLIA [id number] [facility] [place] [address] [place] Hematocrit (Bld) [Volume fraction] 43.7 % Normal 39.0-51.0 [facility] Comment on above: Order Comment: Speci men Type: BLOOD SPECIMENOrdering Facility: [facility] Address: [address] [place] [address] Performed By: #### 5 7021-8 ####[facility] LABCLIA [id number] [facility] [place] [address] [place] Hemoglobin (Bld) [Mass/Vol] 14.3 g/dL Normal 13.0-17.0 [facility] Comment on above: Order Comment: Speci men Type: BLOOD SPECIMENOrdering Facility: [facility] Address: [address] [place] [address] Performed By: #### 5 7021-8 ####[facility] LABCLIA [id number] [address], [place] [address] [place] Immature granulocytes (Bld) [#/Vol] 10*3/uL Normal <0.10 [facility] Comment on above: Order Comment: Speci men Type: BLOOD SPECIMENOrdering Facility: [facility] Address: [address] [place] [address] Performed By: #### 5 7021-8 ####[facility] LABCLIA [id number] [address], [address] [place] Immature granulocytes/100 WBC (Bld) 0.1 % Normal [facility] Comment on above: Order Comment: Speci men Type: BLOOD SPECIMENOrdering Facility: [facility] Address: [address] [place] [address] Performed By: #### 5 7021-8 ####[facility] LABCLIA [id number] [address], [place] [address] [place] Lymphocytes (Bld) [#/Vol] 1.67 10*3/uL Normal 1.00-4.00 [facility] Comment on above: Order Comment: Speci men Type: BLOOD SPECIMENOrdering Facility: [facility] Address: [address] [place] [address] Performed By: #### 5 7021-8 ####[facility] LABCLIA [id number] [address], [facility] [place] Lymphocytes/100 WBC (Bld) 23.4 % Normal [facility] Comment on above: Order Comment: Speci men Type: BLOOD SPECIMENOrdering Facility: [facility] Address: [address] [place] [address] Performed By: #### 5 7021-8 ####[facility] LABCLIA [id number] [address] [place] [address] [place] MCH (RBC) [Entitic mass] 31.2 pg Normal 26.0-34.0 [facility] Comment on above: Order Comment: Speci men Type: BLOOD SPECIMENOrdering Facility: [facility] Address: [address] [place] [address] Performed By: #### 5 7021-8 ####[facility] LABCLIA [id number] [place] [address] [place] MCHC (RBC) [Mass/Vol] 32.7 g/dL Normal 30.5-36.0 [facility] Comment on above: Order Comment: Speci men Type: BLOOD SPECIMENOrdering Facility: [facility] Address: [address] [place] [address] Performed By: #### 5 7021-8 ####[facility] LABIA [id number] [place] [address] [place] MCV (RBC) [Entitic vol] 95.4 fL Normal 80.0-100.0 [facility] Comment on above: Order Comment: Speci men Type: BLOOD SPECIMENOrdering Facility: [facility] Address: [address] [place] [address] Performed By: #### 5 7021-8 ####[facility] LABIA [id number] [place] [address] [place] Monocytes (Bld) [#/Vol] 0.69 10*3/uL Normal <0.87 [facility] Comment on above: Order Comment: Speci men Type: BLOOD SPECIMENOrdering Facility: [facility] Address: [address] [place] [address] Performed By: #### 5 7021-8 ####[facility] LABCLIA [id number] [address] [place] Monocytes/100 WBC (Bld) 9.7 % Normal [facility] Comment on above: Order Comment: Speci men Type: BLOOD SPECIMENOrdering Facility: [facility] Address: [address] [place] [address] Performed By: #### 5 7021-8 ####[facility] LABCLIA [id number] [place] [address] [place] Neutrophils (Bld) [#/Vol] 4.47 10*3/uL Normal 1.45-7.50 [facility] Comment on above: Order Comment: Speci men Type: BLOOD SPECIMENOrdering Facility: [facility] Address: [address] [place] [address] Performed By: #### 5 7021-8 ####[facility] LABCLIA [id number] [place] [address] [place] Neutrophils/100 WBC (Bld) 62.7 % Normal [facility] Comment on above: Order Comment: Speci men Type: BLOOD SPECIMENOrdering Facility: [facility] Address: [address] [place] [address] Performed By: #### 5 7021-8 ####[facility] LABCLIA [id number] [place] [address] [place] Nucleated RBC (Bld) [#/Vol] 10*3/uL Normal <0.01 [facility] Comment on above: Order Comment: Speci men Type: BLOOD SPECIMENOrdering Facility: [facility] Address: [address] [place] [address] Performed By: #### 5 7021-8 ####[facility] LABCLIA [id number] [facility] [address], [facility] [place] Nucleated RBC/100 WBC (Bld) [Ratio] 0.0 /100 WBC Normal [facility] Comment on above: Order Comment: Speci men Type: BLOOD SPECIMENOrdering Facility: [facility] Address: [address] [place] [address] Performed By: #### 5 7021-8 ####[facility] LABCLIA [id number] [place] [id number] [place] Platelet mean volume (Bld) [Entitic vol] 11.9 fL Normal 9.0-12.7 [facility] Comment on above: Order Comment: Speci men Type: BLOOD SPECIMENOrdering Facility: [facility] Address: [address] [place] [address] Performed By: #### 5 7021-8 ####[facility] LABIA [id number] [place] [address] [place] Platelets (Bld) [#/Vol] 137 10*3/uL Low 150-400 [facility] Comment on above: Order Comment: Speci men Type: BLOOD SPECIMENOrdering Facility: [facility] Address: [address] [place] [address] Performed By: #### 5 7021-8 ####[facility] LABIA [id number] [place] [address] [place] RBC (Bld) [#/Vol] 4.58 10*6/uL Normal 4.20-6.00 [facility] Comment on above: Order Comment: Speci men Type: BLOOD SPECIMENOrdering Facility: [facility] Address: [address] [place] [address] Performed By: #### 5 7021-8 ####[facility] LABIA [id number] [place] [id number] [place] WBC (Bld) [#/Vol] 7.13 10*3/uL Normal 3.70-11.00 [facility] Comment on above: Order Comment: Speci men Type: BLOOD SPECIMENOrdering Facility: [facility] Address: [address] [place] [address] Performed By: #### 5 7021-8 ####[facility] LABIA [id number] [place] [id number] [place] CNOVon 01-20-2025 CNOV Office Visit (INTMWS ) MARSHAL CARRILLO ([id number]) 1945 M Date Time Provider Department 01/20/25 9:20 AM AMILCAR TAMAYO INTMWS During your visit today, we recorded the following information about you: Pulse Respiration Blood pressure Weight 59/minute 16/minute 115/65 75 kg Amilcar Tamayo MD 01/20/2025 10:18 AM Signed This note was created using [employer]. Subjective Marshal Carrillo is a 79 year [...] Coronary atherosclerosis of unspecified type of vessel, andreafski or graft 07/30/2007 [place] Date: 1985. CABG Date: 1986 - left [...] History of ventricular tachycardia 04/05/2011 Dr Latif [facility] Interstitial lung disease (HCC) Pure hypercholesterolemia 03/22/2005 Unspecified cardiovascular disease 03/22/2005 [place]--Dr. Latif Ventricular tachycardia (HCC) 12/06/2022 Current Outpatient [...] 06/12/2023 07/10/2023 (more content not included)... Normal [facility] Basic metabolic 2000 panelon 01-13-2025 Anion gap [Moles/Vol] 12 mmol/L Normal 8-15 [facility] Comment on above: Order Comment: Speci men Type: BLOOD SPECIMENOrdering Facility: [facility] Address: [address] [place], [place] [address] Performed By: #### 2 4325-3, 2777-1, 43737-4 ####[facility] [id number] [place] [address] [place] Calcium [Mass/Vol] 9.2 mg/dL Normal 8.5-10.2 [facility] Comment on above: Order Comment: Speci men Type: BLOOD SPECIMENOrdering Facility: [facility] Address: [address] [place] [address] Performed By: #### 2 4325-3, 2777-1, 02332-2 ####[facility] [id number] [place] [address] [place] Chloride [Moles/Vol] 104 mmol/L Normal 98-107 [facility] Comment on above: Order Comment: Speci men Type: BLOOD SPECIMENOrdering Facility: [facility] Address: [address] [place] [address] Performed By: #### 2 4325-3, 2777-1, 87588-3 ####[facility] [id number] [place] [address] [place] CO2 [Moles/Vol] 24 mmol/L Normal 22-30 [facility] Comment on above: Order Comment: Speci men Type: BLOOD SPECIMENOrdering Facility: [facility] Address: [address] [place] [address] Performed By: #### 2 4325-3, 2777-1, 13726-1 ####[facility] [id number] [place] [address] [place] Creatinine [Mass/Vol] 0.86 mg/dL Normal 0.73-1.22 [facility] Comment on above: Order Comment: Speci men Type: BLOOD SPECIMENOrdering Facility: [facility] Address: [address] [place] [address] Performed By: #### 2 4325-3, 2777-1, 30157-8 ####[facility] [id number] [place] [address] [place] Creatinine and Glomerular filtration rate.predicted panel (S/P/Bld) 87 mL/min/1.73m??? Normal >=60 [facility] Comment on above: Order Comment: Speci men Type: BLOOD SPECIMENOrdering Facility: [facility] Address: [address] [place] [address] Result Comment: Yoko mated Glomerular Filtration Rate [...] GFR. Performed By: #### 2 4325-3, 2777-1, 61466-5 ####[facility] [id number] [place] [address] [place] Glucose [Mass/Vol] 80 mg/dL Normal 74-99 [facility] Comment on above: Order Comment: Speci men Type: BLOOD SPECIMENOrdering Facility: [facility] Address: [address] [place] [id number] Result Comment: The [place] [employer] (ADA) provides guidance for cutoff [...] Standards of Medical Care in Diabetes 2016, [employer]. Diabetes Care. 2016.39(Suppl 1). Performed By: #### 2 4325-3, 2777-, ####[facility] [id number] [place] [address] [place] Potassium [Moles/Vol] 3.8 mmol/L Normal 3.7-5.1 [facility] Comment on above: Order Comment: Speci men Type: BLOOD SPECIMENOrdering Facility: [facility] Address: [address] [place] [address] Performed By: #### 2 4325-3, 2777-, 73407-5 ####[facility] [id number] [place] [address] [place] Sodium [Moles/Vol] 140 mmol/L Normal 136-144 [facility] Comment on above: Order Comment: Speci men Type: BLOOD SPECIMENOrdering Facility: [facility] Address: [address] [place] [address] Performed By: #### 2 4325-3, 2777-1, 90109-1 ####[facility] NELDAWNCLIA [id number] [place] [address] [place] Urea nitrogen [Mass/Vol] 12 mg/dL Normal 9-24 [facility] Comment on above: Order Comment: Speci men Type: BLOOD SPECIMENOrdering Facility: [facility] Address: [address] [place] [address] Performed By: #### 2 4325-3, 2777-1, 27809-1 ####[facility] [id number] [place] [address] [place] Hepatic function 2000 panelo n 01-13-2025 Albumin [Mass/Vol] 3.8 g/dL Low 3.9-4.9 [facility] Comment on above: Order Comment: Speci men Type: BLOOD SPECIMENOrdering Facility: [facility] Address: [address] [place] [address] Performed By: #### 2 4325-3, 2777-1, 32306-2 ####[facility] [id number] [place] [address] [place] ALP [Catalytic activity/Vol] 47 U/L Normal 38-113 [facility] Comment on above: Order Comment: Speci men Type: BLOOD SPECIMENOrdering Facility: [facility] Address: [address] [place] [address] Performed By: #### 2 4325-3, 2777-1, 22418-5 ####[facility] ERWNCLIA [id number] [place] [address] [place] ALT [Catalytic activity/Vol] 28 U/L Normal 10-54 [facility] Comment on above: Order Comment: Speci men Type: BLOOD SPECIMENOrdering Facility: [facility] Address: [address] [place] [address] Performed By: #### 2 4325-3, 277-1, 86256-9 ####[facility] LUTZSHANENCLIA [id number] [place] [address] [place] AST [Catalytic activity/Vol] 35 U/L Normal 14-40 [facility] Comment on above: Order Comment: Speci men Type: BLOOD SPECIMENOrdering Facility: [facility] Address: [address] [place] [address] Performed By: #### 2 4325-3, 2777-1, 16760-0 ####[facility] NELDATesfayeNCMALENAA [id number] [place] [address] [place] Bilirubin [Mass/Vol] 0.5 mg/dL Normal 0.2-1.3 [facility] Comment on above: Order Comment: Speci men Type: BLOOD SPECIMENOrdering Facility: [facility] Address: [address] [place] [address] Performed By: #### 2 4325-3, 277-1, 98379-3 ####[facility] [id number] [place] [address] [place] Bilirubin.conjugate d [Mass/Vol] 0.2 mg/dL Normal <0.3 [facility] Comment on above: Order Comment: Speci men Type: BLOOD SPECIMENOrdering Facility: [facility] Address: [address] [place] [address] Performed By: #### 2 4325-3, 277-1, 38349-6 ####[facility] ERWNCLIA [id number] [place] [address] [place] Protein [Mass/Vol] 6.5 g/dL Normal 6.3-8.0 [facility] Comment on above: Order Comment: Speci men Type: BLOOD SPECIMENOrdering Facility: [facility] Address: [facility] [address] Performed By: #### 2 4325-3, 2777-1, 11647-4 ####[facility] [id number] [place] [address] [place] LUNG DIFFUSION CAPACITY (PASCUAL O)on 01-13-2025 LUNG DIFFUSION CAPACITY (DLCO) [facility] [address] [id number] Test Date: 2025-01-13 Pat Name: MARSHAL CARRILLO Department: Room: Gender: Male Accountant Manager: : 1945 Requested By: Order Number: [id number] Reading MD: Millie Chester MD Interpretive Statements [...] 18:02:16 EDT by Millie Chester MD ID: [id number] Name: MARSHAL CARRILLO Race: White Ht: 71.50 [...] FIF50 7.33 FEF50/FIF50 0.50 90-100 FIVC 3.49 DCY69-53 2.46 0.76 2.05 3.97 119 0.40 ExpiredTime [...] DLCO met with 2 acceptable maneuvers. Normal [facility] LUNG VOLUMESon 01-13-2025 LUNG VOLUMES [facility] [address] [place] [address] Test Date: 2025-01-13 Pat Name: MARSHAL CARRILLO Department: Room: Gender: Male Accountant Manager: : 1945 Requested By: Order Number: [id number] Reading MD: Millie Chester MD Interpretive Statements [...] 18:02:16 EDT by Millie Chester MD ID: [id number] Name: MARSHAL CARRILLO Race: White Ht: 71.50 in Wt: 170.00 lbs Age: 79 Gender: Male : 1945 Dx: Idiopathic pulmonary fibrosis Smoking Hx: Non-smoker Doctor: [place] COLEMAN Test Date: 01/13/2025 Site: [facility] Tech: [...] FIF50 7.33 FEF50/FIF50 0.50 90-100 FIVC 3.49 VFU18-85 2.46 0.76 2.05 3.97 119 0.40 ExpiredTime [...] DLCO met with 2 acceptable maneuvers. Normal [facility] Phosphate SerPl-ncon 01-13 Phosphate [Mass/Vol] 2.6 mg/dL Low 2.7-4.8 [facility] Comment on above: Order Comment: Speci men Type: BLOOD SPECIMENOrdering Facility: [facility] Address: [address] [place] [address] Performed By: #### 2 4325-3, 2777-1, 95182-4 ####[facility] [id number] [place] [address] [place] SPIROMETRY WITH DILATOR IF O BSTRUCTEDon 01-13-2025 SPIROMETRY WITH DILATOR IF OBSTRUCTED [facility] [address] [id number] Test Date: 2025-01-13 Pat Name: MARSHAL CARRILLO Department: Room: Gender: Male Accountant Manager: : 1945 Requested By: Order Number: [id number] Reading MD: Millie Chester MD Interpretive Statements [...] 18:02:16 EDT by Millie Chester MD ID: [id number] Name: MARSHAL CARRILLO Race: White Ht: 71.50 in Wt: 170.00 lbs Age: 79 Gender: Male : 1945 Dx: Idiopathic pulmonary fibrosis Smoking Hx: Non-smoker Doctor: HOMA COLEMAN Test Date: 01/13/2025 Site: Tech: Alondra Merlos PRE-BRONCH POST-BRONCH Kal LLN Pred ULN %Pred ZScore Kal %Pred %Chg ZScore SPIROMETRY FVC 3.60 2.94 3.99 5.07 90 -0.61 FEV1 2.81 2.09 2.90 3.67 96 -0.19 FEV1/FVC 0.78 0.61 0.75 0.86 104 0.41 FEFMax 8.40 4.99 7.40 9.82 113 0.68 FEF50 3.65 1.78 3.90 6.03 93 -0.20 FIF50 7.33 FEF50/FIF50 0.50 90-100 FIVC 3.49 ESU56-24 2.46 0.76 2.05 3.97 119 0.40 ExpiredTime [...] 75 % FEV1/FVC_LLN (%) : 61 % NOJ04_YNE (L/S) : 8.21 L/S HPC47_XAH (L/S) : 0.72 L/S IGV13_BWLN (L/S) : 0.50 L/S SBT60_WME (L/S) : 0.17 L/S QVD74_AIV (L/S) : 1.46 L/S SKC37-33%_PRE (L/S) : 2.46 L/S QUF31-81%_PRED (L/S) : 2.05 L/S CWD93-83%_LLN (L/S) : 0.76 L/S PEF_PRE (L/S) : [...] ml/min/mmHg DLCO/VACOR (ML/MIN/MMHG/L) : 0.03 ml/min/mmHg/L Normal [facility] CNOVon 12-31-2024 CNOV Office Visit (PULMWS ) MARSHAL CARRILLO ([id number]) 1945 M Date Time Provider Department 12/31/24 10:00 AM HOMA COLEMAN PULMWS During your visit today, we recorded the following information about you: Weight 76.7 kg Homa Coleman, PRODUCT DESIGN SPECIALIST.PRESS ROOM SUPERVISOR 12/31/2024 5:53 PM Signed Pulmonary Medicine Patients [...] Coronary atherosclerosis of unspecified type of vessel, andreafski or graft 07/30/2007 [place] Date: 1985. CABG Date: 1986 - left [...] History of ventricular tachycardia 04/05/2011 Dr Latif [facility] Interstitial lung disease (HCC) Pure hypercholesterolemia 03/22/2005 Unspecified cardiovascular disease 03/22/2005 Sand Buffer--Dr. Latif Ventricular tachycardia (HCC) 12/06/2022 Allergies: No [...] chronic interstitial disease. No superimposed acute process Mender Hand: PAMELA Transcribe Date/Time: Apr 30 2024 4:22P... CT Chest: 05/2024 IMPRESSION: 1. Bilateral reticular opacities in a prominently peripheral and lower lung distribution with interstitial lung disease 2. There is a 4 mm nodule in the anterior left upper lobe 3. No thoracic lymphadenopathy Mender Hand: PSCMegan Transcribe Date/Time: May 21 2024 12:42P Dictated by : KANDY MOTA MD This examination was interpreted and the report reviewed and electronically signed by: KANDY MOTA MD on May 21 2024 1:33PM EST Results-Findings * * *Final Report* * * DATE OF EXAM: May 16 2024 10:15AM [facility] 0541 - CT CHEST WO IVCON / [...] product (DLP) (more content not included)... Normal [facility] GRPon 10-29 A. alternata IgE Qn (S) <0.35 Normal <0.35 [facility] Comment on above: Order Comment: Speci men Type: BLOOD SPECIMENOrdering Facility: [facility] Address: [address] [place] [address] Performed By: #### G RTLKS ####[facility]ITAL[facility] [id number] [place] [address] [place] A. alternata IgE RAST class (S) Class 0 Normal Class 0 [facility] Comment on above: Order Comment: Speci men Type: BLOOD SPECIMENOrdering Facility: [facility] Address: [address] [place] [address] Performed By: #### G RTLKS ####[facility] LABIA [id number] [place] [address] [place] Armenian house dust mite IgE Qn (S) <0.35 Normal <0.35 [facility] Comment on above: Order Comment: Speci men Type: BLOOD SPECIMENOrdering Facility: [facility] Address: [address] [place] [address] Performed By: #### G RTLKS ####[facility] LABCLIA [id number] [place] [address] [place] Armenian house dust mite IgE RAST class (S) Class 0 Normal Class 0 [facility] Comment on above: Order Comment: Speci men Type: BLOOD SPECIMENOrdering Facility: [facility] Address: [address] [place] [address] Performed By: #### G RTLKS ####[facility] LABCLIA [id number] [place] [address] [place] C. herbarum IgE Qn (S) <0.35 Normal <0.35 [facility] Comment on above: Order Comment: Speci men Type: BLOOD SPECIMENOrdering Facility: [facility] Address: [address] [place] [address] Performed By: #### G RTLKS ####[facility] LABCLIA [id number] [place] [address] [place] C. herbarum IgE RAST class (S) Class 0 Normal Class 0 [facility] Comment on above: Order Comment: Speci men Type: BLOOD SPECIMENOrdering Facility: [facility] Address: [address] [place] [address] Performed By: #### G RTLKS ####[facility] LABCLIA [id number] [place] [address] [place] Cat dander IgE Qn (S) <0.35 Normal <0.35 [facility] Comment on above: Order Comment: Speci men Type: BLOOD SPECIMENOrdering Facility: [facility] Address: [address] [place] [address] Performed By: #### G RTLKS ####[facility] LABCLIA [id number] [place] [address] [place] Cat dander IgE RAST class (S) Class 0 Normal Class 0 [facility] Comment on above: Order Comment: Speci men Type: BLOOD SPECIMENOrdering Facility: [facility] Address: [address] [place] [address] Performed By: #### G RTLKS ####[facility] LABCLIA [id number] [address] STATES OF [facility] Common Ragweed IgE Qn (S) <0.35 Normal <0.35 [facility] Comment on above: Order Comment: Speci men Type: BLOOD SPECIMENOrdering Facility: [facility] Address: [address] [place] [address] Performed By: #### G RTLKS ####[facility] LABCLIA [id number] [address] STATES OF [facility] Common Ragweed IgE RAST class (S) Class 0 Normal Class 0 [facility] Comment on above: Order Comment: Speci men Type: BLOOD SPECIMENOrdering Facility: [facility] Address: [address] [place] [address] Performed By: #### G RTLKS ####[facility] LABCLIA [id number] [address] [place] Dog dander IgE Qn (S) <0.35 Normal <0.35 [facility] Comment on above: Order Comment: Speci men Type: BLOOD SPECIMENOrdering Facility: [facility] Address: [address] [place] [address] Performed By: #### G RTLKS ####[facility] LABCLIA [id number] [address] OF [place] Dog dander IgE RAST class (S) Class 0 Normal Class 0 [facility] Comment on above: Order Comment: Speci men Type: BLOOD SPECIMENOrdering Facility: [facility] Address: [address] [place] [address] Performed By: #### G RTLKS ####[facility] LABCLIA [id number] [facility] [address] [place] [address] [place] Goosefoot IgE Qn (S) <0.35 Normal <0.35 [facility] Comment on above: Order Comment: Speci men Type: BLOOD SPECIMENOrdering Facility: [facility] Address: [address] [place] [address] Performed By: #### G RTLKS ####[facility] LABCLIA [id number] [facility] [address], [place] [address] [place] Goosefoot IgE RAST class (S) Class 0 Normal Class 0 [facility] Comment on above: Order Comment: Speci men Type: BLOOD SPECIMENOrdering Facility: [facility] Address: [address] [place] [address] Performed By: #### G RTLKS ####[facility] LABCLIA [id number] [facility] [address], [place] [address] [place] [facility] blue grass IgE Qn (S) <0.35 Normal <0.35 [facility] Comment on above: Order Comment: Speci men Type: BLOOD SPECIMENOrdering Facility: [facility] Address: [address] [place] [address] Performed By: #### G RTLKS ####[facility] LABCLIA [id number] [facility] [address], [place] [address] [place] Kentucky blue grass IgE RAST class (S) Class 0 Normal Class 0 [facility] Comment on above: Order Comment: Speci men Type: BLOOD SPECIMENOrdering Facility: [facility] Address: [address] [place], [place] [address] Performed By: #### G RTLKS ####[facility] LABCLIA [id number] [facility] [address] [place] [address] [place] Karthik IgE Qn (S) <0.35 Normal <0.35 [facility] Comment on above: Order Comment: Speci men Type: BLOOD SPECIMENOrdering Facility: [facility] Address: [address] [place] [address] Performed By: #### G RTLKS ####[facility] LABCLIA [id number] [address] [place] [address] [place] Karthik IgE RAST class (S) Class 0 Normal Class 0 [facility] Comment on above: Order Comment: Speci men Type: BLOOD SPECIMENOrdering Facility: [facility] Address: [address] [place] [address] Performed By: #### G RTLKS ####[facility] LABCLIA [id number] [address], [facility] [place] Nesquehoning IgE Qn (S) <0.35 Normal <0.35 [facility] Comment on above: Order Comment: Speci men Type: BLOOD SPECIMENOrdering Facility: [facility] Address: [address] [place] [address] Performed By: #### G RTLKS ####[facility] LABCLIA [id number] [address], [facility] [place] Nesqueh[place] IgE RAST class (S) Class 0 Normal Class 0 [facility] Comment on above: Order Comment: Speci men Type: BLOOD SPECIMENOrdering Facility: [facility] Address: [address] [place] [address] Performed By: #### G RTLKS ####[facility] LABCLIA [id number] [address] [place] [address] [place] Basic metabolic 2000 panelon 10-29-2024 Anion gap [Moles/Vol] 8 mmol/L Normal 8-15 [facility] Comment on above: Order Comment: Speci men Type: BLOOD SPECIMENOrdering Facility: [facility] Address: [address] [place] [address] Performed By: #### 2 4321-2 ####[facility] [id number] [place] [address] [place] Calcium [Mass/Vol] 9.0 mg/dL Normal 8.5-10.2 [facility] Comment on above: Order Comment: Speci men Type: BLOOD SPECIMENOrdering Facility: [facility] Address: [address] [place] [address] Performed By: #### 2 4321-2 ####[facility] ERWNDLIA [id number] [place] [address] [place] Chloride [Moles/Vol] 105 mmol/L Normal 98-107 [facility] Comment on above: Order Comment: Speci men Type: BLOOD SPECIMENOrdering Facility: [facility] Address: [address] [place], [place] [address] Performed By: #### 2 4321-2 ####[facility] [id number] [place] [address] [place] CO2 [Moles/Vol] 27 mmol/L Normal 22-30 [facility] Comment on above: Order Comment: Speci men Type: BLOOD SPECIMENOrdering Facility: [facility] Address: [address] [place] [address] Performed By: #### 2 4321-2 ####[facility] GLENBEIGHLIA [id number] [place] [address] [place] Creatinine [Mass/Vol] 0.83 mg/dL Normal 0.73-1.22 [facility] Comment on above: Order Comment: Speci men Type: BLOOD SPECIMENOrdering Facility: [facility] Address: [address] [place] [address] Performed By: #### 2 4321-2 ####[facility] [id number] [place] [address] [place] Creatinine and Glomerular filtration rate.predicted panel (S/P/Bld) 88 mL/min/1.73m??? Normal >=60 [facility] Comment on above: Order Comment: Carlton fields Type: BLOOD SPECIMENOrdering Facility: [facility] Address: [address] [id number] Result Comment: Yoko mated Glomerular Filtration Rate [...] actual GFR. Performed By: #### 2 4321-2 ####[facility] [id number] [place] [address] [place] Glucose [Mass/Vol] 97 mg/dL Normal 74-99 [facility] Comment on above: Order Comment: Carlton fields Type: BLOOD SPECIMENOrdering Facility: [facility] Address: [address] [place] [address] Result Comment: The [place] Diabetes Association (ADA) provides guidance for cutoff [...] Standards of Medical Care in Diabetes 2016, [place] Diabetes Association. Diabetes Care. 2016.39(Suppl 1). Performed By: #### 2 4321-2 ####[facility] [id number] [place] [address] [place] Potassium [Moles/Vol] 4.3 mmol/L Normal 3.7-5.1 [facility] Comment on above: Order Comment: Carlton fields Type: BLOOD SPECIMENOrdering Facility: [facility] Address: [address] [place] [address] Performed By: #### 2 4321-2 ####[facility] ERWNCLIA [id number] [place] [address] [place] Sodium [Moles/Vol] 140 mmol/L Normal 136-144 [facility] Comment on above: Order Comment: Speci men Type: BLOOD SPECIMENOrdering Facility: [facility] Address: [address] [place] [address] Performed By: #### 2 4321-2 ####[facility] [id number] [place] [address] [place] Urea nitrogen [Mass/Vol] 12 mg/dL Normal 9-24 [facility] Comment on above: Order Comment: Speci men Type: BLOOD SPECIMENOrdering Facility: [facility] Address: [address] [place] [address] Performed By: #### 2 4321-2 ####[facility] [id number] [place] [address] [place] IgE SerPl-aCncon 10-29-2024 IgE Qn 29.1 kU/l Normal <114.0 [facility] Comment on above: Order Comment: Speci men Type: BLOOD SPECIMENOrdering Facility: [facility] Address: [address] [place] [address] Performed By: #### 1 9113-0 ####[facility] LABCLIA [id number] [place] [id number] [place] CNOVon 08-28-2024 CNOV Office Visit (PULMWS ) MARSHAL CARRILLO ([id number]) 1945 M Date Time Provider Department 08/28/24 9:30 AM HOMA COLEMAN PULMWS During your visit today, we recorded the following information about you: Pulse Weight 56/minute 79.8 kg Homa Coleman APRN.PRESS ROOM SUPERVISOR 08/28/2024 1:10 PM Signed Pulmonary Medicine Patients [...] Coronary atherosclerosis of unspecified type of vessel, andreafski or graft 07/30/2007 [place] Date: 1985. CABG Date: 1986 - left [...] History of ventricular tachycardia 04/05/2011 Dr Latif [facility] Interstitial lung disease (HCC) Pure hypercholesterolemia 03/22/2005 Unspecified cardiovascular disease 03/22/2005 Sand Buffer--Dr. Latif Ventricular tachycardia (HCC) 12/06/2022 Allergies: No [...] chronic interstitial disease. No superimposed acute process Mender Hand: PAMELA Transcribe Date/Time: Apr 30 2024 4:22P... CT Chest: 05/2024 IMPRESSION: 1. Bilateral reticular opacities in a prominently peripheral and lower lung distribution with interstitial lung disease 2. There is a 4 mm nodule in the anterior left upper lobe 3. No thoracic lymphadenopathy Mender Hand: PAMELA Transcribe Date/Time: May 21 2024 12:42P [...] without cont (more content not included)... Normal [facility] CNOVon 07-08-2024 CNOV Office Visit (CATHMN ) MARSHAL CARRILLO ([id number]) 1945 M Date Time Provider Department 07/08/24 3:30 PM BRANDEN HICKMAN CATHELZBIETA During your visit today, we recorded the following information about you: Pulse Respiration Blood pressure Weight 74/minute 18/minute 153/73 79.8 kg Height 1.829 m Branden Hickman MD 07/09/2024 6:03 PM Signed Heart[facility] Vascular [facility] Thoracic [place] Charo Leyva Department of Cardiovascular Medicine SECTION OF INTERVENTIONAL CARDIOLOGY OUTPATIENT VISIT DATE July 08, 2024 OUTPATIENT VISIT TYPE ESTABLISHED PRIMARY CARE PHYSICIAN: Amilcar Tamayo [address] [place] [address] REFERRING PHYSICIAN: Mauricio Hickman [address], Desk J2-3 [facility] [address] CHIEF COMPLAINT: Patient presents with: Follow Up [...] mm Hg. PAST CARDIAC HISTORY: 07/23/1986 - [place] - symptoms were SOB after chasing a calf at work (at [employer]). 08/1986 - CABG - TORRES to LAD, [...] continued aspirin. 06/01/2018 - [facility] in [place] 7:00, Stage 3, 107% APMHR, 8 METS ECG - baseline RBBB, exercise 1-[address] depression in I, L, V2 Nuclear - mid inferoseptal/basal, mid inferior perfusion changes appearing compatible with an area of previous SD LVEF 59% 07/06/2018 - EGD as [facility] - healed gastric ulcers, n (more content not included)... 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 BIFASCICULAR BLOCK MINIMAL VOLTAGE CRITERIA FOR LVH, MAY BE NORMAL VARIANT ( R in aVL ) ABNORMAL ECG Confirmed by PADMINI BROCK MD ([id number]) on 08/16/2024 5:30:51 PM NAME : MARSHAL CARRILLO PID : [id number] : 1945 Gender : Male Race : ORD : [id number] Procedure Date : Jul 08 2024 13:44:39 Edit Date : Aug 16 2024 17:30:53 Diagnosis: SINUS RHYTHM WITH 1ST DEGREE AV BLOCK COMPLETE RIGHT BUNDLE BRANCH BLOCK LEFT ANTERIOR FASCICULAR BLOCK BIFASCICULAR BLOCK MINIMAL VOLTAGE CRITERIA FOR LVH, MAY BE NORMAL VARIANT ( R in aVL ) ABNORMAL ECG Confirmed by PADMINI BROCK MD ([id number]) on 08/16/2024 5:30:51 PM Test Reason : Location : 314 : 14 J14 Overread By : PADMINI BROCK MD Edited By : PADMINI BROCK MD Referred By : BRANDEN HICKMAN Acquired by : ENA KAT [facility] ECHOon 07-08-2024 Echocardiography Echocardiography Rep ort: Transthoracic Echo [facility] J1-5 Date of service: 07/08/2024 2:58:16 PM 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 Ordering physician: BRANDEN HICKMAN Indication: CAD, s/p [...] * * Final * * * [employer] Image : [id number] namicsSISUID Normal [facility] CNOVon 07-01-2024 CNOV Office Visit (INTMWS ) MARSHAL CARRILLO ([id number]) 1945 M Date Time Provider Department 07/01/24 11:20 AM TALIB JUNG INTMWS During your visit today, we recorded the following information about you: Pulse Blood pressure Weight 59/minute 138/54 79.9 kg Talib Jung APRN.PRESS ROOM SUPERVISOR 07/01/2024 11:58 AM Signed SUBJECTIVE Marshal Carrillo [...] Pulmonary Fibrosis (Hcc) - 07/01/2024 Atherosclerosis of [place] Coronary Artery of [place] Heart Without Angina Pectoris - 06/07/2019 Pure [...] in - Coronary Atherosclerosis - 07/30/2007 Comment: [place] Date: 1985 CABG Date: 1986: TORRES-LAD, KAMLESH-RCA, [...] present. Ment (more content not included)... Normal [facility] WILLIAM BY IFA SCREENon 05-29-20 24 Nuclear Ab Ql (S) Negative Normal [facility] Comment on above: Order Comment: Speci men Type: BLOOD SPECIMEN [facility] Address: [address] [place] [address] Result Comment: Anti -nuclear antibody test is used as an aid in diagnosis of systemic autoimmune diseases. Where positive and clinically warranted, follow-up using disease-specific testing is recommended. Low positive titers are not uncommon with advanced age, certain chronic infections, and malignancies among others. Test methodology: Indirect fluorescence immunoassay (IFA) using HEp-2 cells. Performed By: #### M YOSPL #### [facility] CLIA [id number] [address] [place] [address] ANTI NEUTRO CYTO ABon 2023 INTERPRETATION (ANCA) Normal [facility] Comment on above: Order Comment: Carlton fields Type: BLOOD SPECIMEN Ordering Facility: [facility] Address: [address] [place] [address] Result Comment: Nega tive for C-ANCA and P-ANCA by indirect immunofluorescence. A negative result cannot reliably rule out ANCA-associated vaculitides especially when in remission. Clinical correlation is required. Performed By: #### M YOSPL #### [facility] CLIA [id number] [address] [place] [address] Neutrophil cytoplasmic Ab.classic IF Ql (S) Negative Normal Negative [facility] Comment on above: Order Comment: Carlton diamond Type: BLOOD SPECIMEN Ordering Facility: [facility] Address: [address] [place] [address] Performed By: #### M YOSPL #### [facility] CLIA [id number] [address] [place] [address] Neutrophil cytoplasmic Ab.perinuclear IF Ql (S) Negative Normal Negative [facility] [place] Comment on above: Order Comment: Carlton diamond Type: BLOOD SPECIMEN Ordering Facility: [facility] Address: [address] [place] [address] Performed By: #### M YOSPL #### [facility] CLIA [id number] [address] [place] [address] STAFF REVIEW (ANCA) No review performed. Normal [facility] [place] Comment on above: Order Comment: Carlton diamond Type: BLOOD SPECIMEN Ordering Facility: [facility] Address: [address] [place] [address] Performed By: #### M YOSPL #### [facility] [id number] [address] [place] [address] Bilirub Psychiatric Bilirubin.conjugate d [Mass/Vol] mg/dL Normal <0.2 [facility] [place] Comment on above: Order Comment: Speci men Type: BLOOD SPECIMENOrdering Facility: [facility] Address: [address] [place] [address] Performed By: #### 1 5152-2, 10306-6, 18669-1, 41074-4 ####[facility] LABCLIA [id number] [place] [address] [place] CBC panel Auto (Bld)on 05-29 Erythrocyte distribution width (RBC) [Ratio] 13.2 % Normal 11.5-15.0 [facility] [place] Comment on above: Order Comment: Speci men Type: BLOOD SPECIMENOrdering Facility: [facility] Address: [address] [place] [address] Performed By: #### 5 8410-2 ####[facility] LABIA [id number] [place] [address] [place] Hematocrit (Bld) [Volume fraction] 44.9 % Normal 39.0-51.0 [facility] [place] Comment on above: Order Comment: Speci men Type: BLOOD SPECIMENOrdering Facility: [facility] Address: [address] [place] [address] Performed By: #### 5 8410-2 ####[facility] LABIA [id number] [place] [id number] [place] Hemoglobin (Bld) [Mass/Vol] 14.4 g/dL Normal 13.0-17.0 [facility] [place] Comment on above: Order Comment: Speci men Type: BLOOD SPECIMENOrdering Facility: [facility] Address: [address] [place] [address] Performed By: #### 5 8410-2 ####[facility] LABIA [id number] [place] [address] [place] MCH (RBC) [Entitic mass] 29.9 pg Normal 26.0-34.0 [facility] [place] Comment on above: Order Comment: Speci men Type: BLOOD SPECIMENOrdering Facility: [facility] Address: [address] [place] [address] Performed By: #### 5 8410-2 ####[facility] LABIA [id number] [place] [address] [place] MCHC (RBC) [Mass/Vol] 32.1 g/dL Normal 30.5-36.0 [facility] [place] Comment on above: Order Comment: Speci men Type: BLOOD SPECIMENOrdering Facility: [facility] Address: [address] [place] [address] Performed By: #### 5 8410-2 ####[facility] [id number] [place] [address] [place] MCV (RBC) [Entitic vol] 93.2 fL Normal 80.0-100.0 [facility] [place] Comment on above: Order Comment: Speci men Type: BLOOD SPECIMENOrdering Facility: [facility] Address: [address] [place] [address] Performed By: #### 5 8410-2 ####[facility] [id number] [place] [address] [place] Nucleated RBC (Bld) [#/Vol] 10*3/uL Normal <0.01 [facility] [place] Comment on above: Order Comment: Speci men Type: BLOOD SPECIMENOrdering Facility: [facility] Address: [address] [place] [address] Performed By: #### 5 8410-2 ####[facility] [id number] [place] [address] [place] Platelet mean volume (Bld) [Entitic vol] 11.6 fL Normal 9.0-12.7 [facility] [place] Comment on above: Order Comment: Speci men Type: BLOOD SPECIMENOrdering Facility: [facility] Address: [address] [place] [address] Performed By: #### 5 8410-2 ####[facility] LABCLIA [id number] [place] [address] [place] Platelets (Bld) [#/Vol] 135 10*3/uL Low 150-400 [facility] [place] Comment on above: Order Comment: Speci men Type: BLOOD SPECIMENOrdering Facility: [facility] Address: [address] [place] [address] Performed By: #### 5 8410-2 ####[facility] LABCLIA [id number] [place] [address] [place] RBC (Bld) [#/Vol] 4.82 10*6/uL Normal 4.20-6.00 [facility] Comment on above: Order Comment: Speci men Type: BLOOD SPECIMENOrdering Facility: [facility] Address: [address] [place] [address] Performed By: #### 5 8410-2 ####[facility] LABIA [id number] [place] [address] [place] WBC (Bld) [#/Vol] 5.80 10*3/uL Normal 3.70-11.00 [facility] Comment on above: Order Comment: Speci men Type: BLOOD SPECIMENOrdering Facility: [facility] Address: [address] [place] [address] Performed By: #### 5 8410-2 ####[facility] LABIA [id number] [place] [address] [place] Centromere Ab IF Ql (S)on Centromere Ab Qn (S) <0.2 Normal <1.0 [facility] [place] Comment on above: Order Comment: Speci men Type: BLOOD SPECIMEN Ordering Facility: [facility] Address: [address] [place] [address] Result Comment: Anti -centromere antibody is used as in aid in diagnosis of systemic sclerosis. Clinical correlation is required. Test Methodology: Multiplex flow immunoassay. Performed By: #### M YOSPL #### [facility] CLIA [id number] [address] [place] [address] CENTROMERE AB QUAL Negative Normal Negative [facility] Comment on above: Order Comment: Speci men Type: BLOOD SPECIMEN Ordering Facility: [facility] Address: [address] [place] [address] Performed By: #### M YOSPL #### [facility] CLIA [id number] [address] [place] [address] Chromatin Ab Qnon 05-29-2024 CHROMATIN AB QUAL Negative Normal Negative [facility] Comment on above: Order Comment: Speci men Type: BLOOD SPECIMEN Ordering Facility: [facility] Address: [address] [place] [address] Performed By: #### M YOSPL #### [facility] CLIA [id number] [address] [place] [address] Chromatin Ab [facility]Pl[facility] Chromatin Ab Qn <0.2 Normal <1.0 [facility] Comment on above: Order Comment: Speci men Type: BLOOD SPECIMEN Ordering Facility: [facility] Address: [address] [place] [address] Result Comment: Test Methodology: Multiplex flow immunoassay. Performed By: #### M YOSPL #### [facility] CLIA [id number] [address] [place] [address] Comprehensive metabolic 2000 panelon 05-29-2024 Albumin [Mass/Vol] 4.0 g/dL Normal 3.9-4.9 [facility] Comment on above: Order Comment: Speci men Type: BLOOD SPECIMENOrdering Facility: [facility] Address: [address] [place] [address] Performed By: #### 1 5152-2, 85258-5, 60233-2, 08512-2 ####[facility] LABCLIA [id number] [address] [address] [place] ALP [Catalytic activity/Vol] 53 U/L Normal 38-113 [facility] Comment on above: Order Comment: Speci men Type: BLOOD SPECIMENOrdering Facility: [facility] Address: [address] [place] [address] Performed By: #### 1 5152-2, 87293-7, 31396-7, ####[facility] LABCLIA [id number] [place] [id number] [place] ALT [Catalytic activity/Vol] 16 U/L Normal 10-54 [facility] Comment on above: Order Comment: Speci men Type: BLOOD SPECIMENOrdering Facility: [facility] Address: [address] [place] [address] Performed By: #### 1 5152-2, 16937-2, 35207-0, ####[facility] LABIA [id number] [place] [address] [place] Anion gap [Moles/Vol] 8 mmol/L Normal 8-15 [facility] Comment on above: Order Comment: Speci men Type: BLOOD SPECIMENOrdering Facility: [facility] Address: [address] [place] [address] Performed By: #### 1 5152-2, 60371-4, 61970-1, ####[facility] LABCLIA [id number] [place] [id number] [place] AST [Catalytic activity/Vol] 29 U/L Normal 14-40 [facility] Comment on above: Order Comment: Speci men Type: BLOOD SPECIMENOrdering Facility: [facility] Address: [address] [place] [address] Performed By: #### 1 5152-2, 27123-1, 48071-9, 17850-6 ####[facility] LABCLIA [id number] [address] [address] [place] Bilirubin [Mass/Vol] 0.5 mg/dL Normal 0.2-1.3 [facility] Comment on above: Order Comment: Speci men Type: BLOOD SPECIMENOrdering Facility: [facility] Address: [address] [place] [address] Performed By: #### 1 5152-2, 88330-2, 58494-5, ####[facility] LABCLIA [id number] [place] [address] [place] Calcium [Mass/Vol] 9.2 mg/dL Normal 8.5-10.2 [facility] Comment on above: Order Comment: Speci men Type: BLOOD SPECIMENOrdering Facility: [facility] Address: [address] [place] [address] Performed By: #### 1 5152-2, 85392-9, 09622-9, ####[facility] LABCLIA [id number] [place] [address] [place] Chloride [Moles/Vol] 105 mmol/L Normal 98-107 [facility] Comment on above: Order Comment: Speci men Type: BLOOD SPECIMENOrdering Facility: [facility] Address: [address] [place] [address] Performed By: #### 1 5152-2, 88842-8, 49410-3, ####[facility] LABCLIA [id number] [place] [id number] [place] CO2 [Moles/Vol] 26 mmol/L Normal 22-30 [facility] Comment on above: Order Comment: Speci men Type: BLOOD SPECIMENOrdering Facility: [facility] Address: [address] [place] [address] Performed By: #### 1 5152-2, 81259-1, 11565-8, 51201-8 ####[facility] LABCLIA [id number] [address] [address] [place] Creatinine [Mass/Vol] 0.91 mg/dL Normal 0.73-1.22 [facility] Comment on above: Order Comment: Carlton fields Type: BLOOD SPECIMENOrdering Facility: [facility] Address: [address] [place] [address] Performed By: #### 1 5152-2, 96103-0, 90646-0, ####[facility] LABCLIA [id number] [place] [address] [place] Creatinine and Glomerular filtration rate.predicted panel (S/P/Bld) 85 mL/min/1.73m??? Normal >=60 [facility] Comment on above: Order Comment: Carlton fields Type: BLOOD SPECIMENOrdering Facility: [facility] Address: [address] [place] [address] Result Comment: Yoko mated Glomerular Filtration Rate [...] actual GFR. Performed By: #### 1 5152-2, 57586-7, 25757-2, ####[facility] LABCLIA [id number] [place] [id number] [place] Glucose [Mass/Vol] 100 mg/dL High 74-99 [facility] Comment on above: Order Comment: Carlton fields Type: BLOOD SPECIMENOrdering Facility: [facility] Address: [address] [place] [address] Result Comment: The [employer] (ADA) provides guidance for cutoff [...] Standards of Medical Care in Diabetes 2016, [employer]. Diabetes Care. 2016.39(Suppl 1). Performed By: #### 1 5152-2, 31429-2, 19438-8, 06125-7 ####[facility] LABCLIA [id number] [place] [address] [place] Potassium [Moles/Vol] 4.2 mmol/L Normal 3.7-5.1 [facility] Comment on above: Order Comment: Speci diamond Type: BLOOD SPECIMENOrdering Facility: [facility] Address: [address] [place] [address] Performed By: #### 1 5152-2, 11911-8, 99135-9, ####[facility] LABCLIA [id number] [place] [address] [place] Protein [Mass/Vol] 6.9 g/dL Normal 6.3-8.0 [facility] Comment on above: Order Comment: Otonieli diamond Type: BLOOD SPECIMENOrdering Facility: [facility] Address: [address] [place] [address] Performed By: #### 1 5152-2, 37006-4, 17275-4, 47237-7 ####[facility] LABCLIA [id number] [place] [address] [place] Sodium [Moles/Vol] 139 mmol/L Normal 136-144 [facility] Comment on above: Order Comment: Otonieli men Type: BLOOD SPECIMENOrdering Facility: [facility] Address: [address] [place] [address] Performed By: #### 1 5152-2, 44535-5, 69889-9, 83212-2 ####[facility] LABCLIA [id number] [place] [address] [place] Urea nitrogen [Mass/Vol] 12 mg/dL Normal 9-24 [facility] Comment on above: Order Comment: Speci men Type: BLOOD SPECIMENOrdering Facility: [facility] Address: [address] [place] [address] Performed By: #### 1 5152-2, 13734-7, 20125-0, 57712-0 ####[facility] LABCLIA [id number] [place] [address] [place] Cyclic citrullinated peptide IgG Qnon 05-29-2024 CCP ANTIBODY IGG QUALITATIVE Negative Normal Negative [facility] Comment on above: Order Comment: Speci men Type: BLOOD SPECIMENOrdering Facility: [facility] Address: [address] [place] [address] Performed By: #### 3 3935-8 ####[facility] LABCLIA [id number] [place] [address] [place] DNA ANTIBODY DS BLDon 2023 DNA ANTIBODY 45 IU/mL Normal <=200 [facility] Comment on above: Order Comment: Speci men Type: BLOOD SPECIMENOrdering Facility: [facility] Address: [address] [place] [address] Result Comment: Nega tive: <200 IU/mL Equivocal: 201-300 IU/mL Moderate Positive: 301-800 IU/mL Strong Positive: >801 IU/mL Performed By: #### D NAAB ####[facility] LABCLIA [id number] [place] [address] [place] DNA ANTIBODY QUALITATIVE INTERPRETATION Negative Normal Negative [facility] Comment on above: Order Comment: Speci men Type: BLOOD SPECIMENOrdering Facility: [facility] Address: [address] [place] [address] Performed By: #### D NAAB ####[facility] LABCLIA [id number] [place] [address] [place] HARITHA Jo1 Ab Ser-aCncon 2023 Fallon-1 extractable nuclear Ab Qn (S) <0.2 Normal <1.0 [facility] Comment on above: Order Comment: Speci men Type: BLOOD SPECIMENOrdering Facility: [facility] Address: [address] [place] [address] Performed By: #### 1 7792-3, 41312-5, 72314-6, 85563-7, 46549-4, 00838-9, 44013-7, 79910-3 ####[facility] LABIA [id number] [place] [address] [place] HARITHA WOOD BORER Ab Ser-aCncon 2023 Ribonucleoprotein extractable nuclear Ab Qn (S) <0.2 Normal <1.0 [facility] Comment on above: Order Comment: Speci men Type: BLOOD SPECIMEN Ordering Facility: [facility] Address: [address] [place] [address] Performed By: #### M [facility] #### [facility] [id number] [address] [place] [address] Ribonucleoprotein extractable nuclear Ab Qn (S) 0.3 AI Normal <1.0 [facility] Comment on above: Order Comment: Speci men Type: BLOOD SPECIMENOrdering Facility: [facility] Address: [address] [place] [address] Performed By: #### 1 7792-3, 40223-8, 16947-2, 42492-1, 37656-1, 31308-8, 37778-9, 90530-4 ####[facility] [id number] [place] [address] [place] HARITHA SM IgG Ser-aCncon 2023 Lazaro extractable nuclear IgG Qn (S) <0.2 Normal <1.0 [facility] Comment on above: Order Comment: Speci men Type: BLOOD SPECIMEN Ordering Facility: [facility] Address: [address] [place] [address] Performed By: #### M YOSPL #### [facility] CLIA [id number] [address] [place] [address] HARITHA SS-A Ab Ser-aCncon 05-29 Sjogrens syndrome-A extractable nuclear Ab Qn (S) <0.2 Normal <1.0 [facility] Comment on above: Order Comment: Speci men Type: BLOOD SPECIMENOrdering Facility: [facility] Address: [address] [place] [address] Result Comment: Test Methodology: Multiplex flow immunoassay. Performed By: #### 1 7792-3, 72743-3, 27318-5, 32391-2, 10972-7, 20773-2, 81798-1, 69705-2 ####[facility] LABCLIA [id number] [place] [address] [place] HARITHA SS-B Ab Ser-aCncon 05-29 Sjogrens syndrome-B extractable nuclear Ab Qn (S) <0.2 Normal <1.0 [facility] Comment on above: Order Comment: Speci men Type: BLOOD SPECIMEN Ordering Facility: [facility] Address: [address] [place] [address] Result Comment: Anti -SSB (anti-La) antibody is used as an aid in diagnosis of a variety of systemic autoimmune diseases, especially for Sjogren's syndrome and systemic lupus erythematosus. Clinical correlation is required. Test Methodology: Multiplex flow immunoassay. Performed By: #### M YOSPL #### [facility] [place] [id number] [address] [place] [address] Fallon-1 extractable nuclear Ab Qn (S)on 05-29-2024 FALLON 1 ANTIBODY QUAL Negative Normal Negative [facility] Comment on above: Order Comment: Speci men Type: BLOOD SPECIMENOrdering Facility: [facility] Address: [address] [place] [address] Result Comment: Anti -FALLON-1 antibody is used as an aid in diagnosis of polymyositis and dermatomyositis especially with pulmonary involvement. A negative result cannot rule out polymyositis or dermatomyositis. Clinical correlation is required. Test Methodology: Multiplex flow immunoassay. Performed By: #### 1 7792-3, 43761-2, 50735-5, 14593-7, 26525-5, 30330-7, 60245-9, 30417-1 ####[facility] LABCLIA [id number] [place] [address] [place] Lipid 1996 panelon 4 Cholesterol [Mass/Vol] 147 mg/dL Normal <200 [facility] Comment on above: Order Comment: Speci men Type: BLOOD SPECIMENOrdering Facility: [facility] Address: [address] [place] [address] Result Comment: <200 mg/dL, Desirable 200-239 mg/dL, Borderline high >239 mg/dL, High Performed By: #### 1 5152-2, 56638-3, 70340-4, 86465-8 ####[facility] LABCLIA [id number] [address] [place] Cholesterol in HDL [Mass/Vol] 49 mg/dL Normal >39 [facility] Comment on above: Order Comment: Speci men Type: BLOOD SPECIMENOrdering Facility: [facility] Address: [address] [place] [address] Result Comment: 40-5 9 mg/dL, Acceptable >59 mg/dL, High: Negative risk factor for coronary heart disease <40 mg/dL, Low: Positive risk factor for coronary heart disease Performed By: #### 1 5152-2, 87049-2, 03023-3, 35105-7 ####[facility] LABCLIA [id number] [place] [id number] [place] Cholesterol in LDL [Mass/Vol] 79 mg/dL Normal <100 [facility] Comment on above: Order Comment: Speci men Type: BLOOD SPECIMENOrdering Facility: [facility] Address: [address] [place] [address] Result Comment: <100 mg/dL, Optimal 100-129 mg/dL, Near optimal/above optimal 130-159 mg/dL, Borderline high 160-189 mg/dL, High >189 mg/dL, Very high Secondary prevention optimal LDL Cholesterol levels are recommended to be < 70 mg/dL Performed By: #### 1 5152-2, 47735-6, 56667-6, 85021-2 ####[facility] LABCLIA [id number] [address] [address] [place] Cholesterol in LDL/Cholesterol in HDL [Mass ratio] 1.61 {ratio} Normal <2.54 [facility] Comment on above: Order Comment: Speci men Type: BLOOD SPECIMENOrdering Facility: [facility] Address: [address] [place] [address] Result Comment: Refe oswaldoce: 1. National Cholesterol Education Program ATP III Guideline At-A-Glance Quick Desk Reference: National Heart, Lung, and Blood [place]. National Institutes of Health. 2001: NIH Publication No. 01-3305. 2. An International Atherosclerosis Society position paper: global recommendations for the management of dyslipidemia: executive summary, Atherosclerosis. 2014: 232(2):410-413. Performed By: #### 1 5152-2, 38119-1, 89725-4, ####[facility] LABIA [id number] [place] [address] [place] Cholesterol in VLDL [Mass/Vol] 19 mg/dL Normal <30 [facility] Comment on above: Order Comment: Speci men Type: BLOOD SPECIMENOrdering Facility: [facility] Address: [address] [place] [address] Performed By: #### 1 5152-2, 11238-7, 39394-7, 66723-7 ####[facility] LABCLIA [id number] [place] [address] [place] Cholesterol non HDL [Mass/Vol] 98 mg/dL Normal <130 [facility] Comment on above: Order Comment: Speci men Type: BLOOD SPECIMENOrdering Facility: [facility] Address: [address] [place] [address] Result Comment: <130 mg/dL, Optimal 130-159 mg/dL, Near optimal/above optimal 160-189 mg/dL, Borderline high 190-219 mg/dL, High >219 mg/dL, Very high Secondary prevention optimal non HDL Cholesterol levels are recommended to be <100 mg/dL Performed By: #### 1 5152-2, 72554-4, 32803-4, ####[facility] LABCLIA [id number] [place] [address] [place] Cholesterol.total/C holesterol in HDL [Mass ratio] 3.00 {ratio} Normal <5.10 [facility] Comment on above: Order Comment: Speci men Type: BLOOD SPECIMENOrdering Facility: [facility] Address: [address] [place] [address] Performed By: #### 1 5152-2, 09900-3, 30354-5, ####[facility] LABCLIA [id number] [place] [address] [place] FASTING TIME 12 hrs Normal [facility] Comment on above: Order Comment: Speci men Type: BLOOD SPECIMENOrdering Facility: [facility] Address: [address] [place] [address] Performed By: #### 1 5152-2, 89939-7, 18269-7, ####[facility] LABCLIA [id number] [place] [address] [place] Triglyceride [Mass/Vol] 96 mg/dL Normal <150 [facility] Comment on above: Order Comment: Speci men Type: BLOOD SPECIMENOrdering Facility: [facility] Address: [address] [place] [address] Result Comment: <150 mg/dL, Normal 150-199 mg/dL, Borderline high 200-499 mg/dL, High >499 mg/dL, Very high Performed By: #### 1 5152-2, 74600-5, 92582-0, ####[facility] LABCLIA [id number] [place] [address] [place] Magnesium SerPl-mCncon 05-29 Magnesium [Mass/Vol] 2.3 mg/dL Normal 1.7-2.3 [facility] Comment on above: Order Comment: Carlton fields Type: BLOOD SPECIMENOrdering Facility: [facility] Address: [address] [place] [address] Performed By: #### 1 5152-2, 53990-2, 79471-9, 49025-3 ####[facility] LABCLIA [id number] [place] [address] [place] POLYMYOSITIS AND DERMATOMYOS ITIS PANELon 05-29-2024 EJ (GLYCYL-TRNA SYNTHETASE) ANTIBODY Negative Normal Negative [facility] Comment on above: Order Comment: Otonieli diamond Type: BLOOD SPECIMEN Ordering Facility: [facility] Address: [address] [place] [address] Performed By: #### M YOSPL #### Stevie[employer] [id number] [address] [place] [address] FALLON-1 (HISTIDYL-TRNA SYNTHETASE) AB, IGG 2 AU/mL Normal 0-40 [facility] Comment on above: Order Comment: Carlton fields Type: BLOOD SPECIMEN Ordering Facility: [facility] Address: [address] [place] [address] Result Comment: INTE RPRETIVE INFORMATION: Fallon-1 Antibody, IgG 29 AU/mL or less.........Negative 30-40 AU/mL..............Equivocal 41 AU/mL or greater......Positive Presence of Fallon-1 (antihistidyl transfer RNA [t-RNA] synthetase) antibody is associated with polymyositis and may also be seen in patients with dermatomyositis. Fallon-1 antibody is associated with pulmonary involvement (interstitial lung disease), Raynaud phenomenon, arthritis, and rice dryer mechanic's hands (implicated in antisynthetase syndrome). Performed By: #### M YOSPL #### [employer] CLIA [id number] [address] [place] [address] MDA5 (CADM-140) AB Negative Normal Negative [facility] Comment on above: Order Comment: Speci men Type: BLOOD SPECIMEN Ordering Facility: [facility] Address: [address] [place] [address] Performed By: #### M YOSPL #### [facility] CLIA [id number] [address] [place] [address] SD-2 (NUCLEAR HELICASE PROTEIN) ANTIBODY Negative Normal Negative [facility] Comment on above: Order Comment: Speci men Type: BLOOD SPECIMEN Ordering Facility: [facility] Address: [address] [place] [address] Performed By: #### M YOSPL #### [facility] [id number] [address] [place] [address] MYOSITIS INTERPRETIVE INFORMATION See Note Normal [facility] Comment on above: Order Comment: Speci men Type: BLOOD SPECIMEN Ordering Facility: [facility] Address: [address] [place] [address] Result Comment: INTE RPRETIVE INFORMATION: Dermatomyositis and [...] developed and its performance characteristics determined by [facility]. It has not been cleared or approved by the US Food and Drug Administration. This test was performed in a CLIA certified laboratory and is intended for clinical purposes. Performed By: #### M YOSPL #### [facility] CLIA [id number] [address] [place] [address] NXP2 (NUCLEAR MATRIX PROTEIN-2) AB Negative Normal Negative [facility] Comment on above: Order Comment: Speci men Type: BLOOD SPECIMEN Ordering Facility: [facility] Address: [address] [place] [address] Performed By: #### M YOSPL #### [facility] [id number] [address] [place] [address] OJ (ISOLEUCYL-TRNA SYNTHETASE) ANTIBODY Negative Normal Negative [facility] Comment on above: Order Comment: Speci men Type: BLOOD SPECIMEN Ordering Facility: [facility] Address: [address] [place] [address] Performed By: #### M YOSPL #### [facility] [id number] [address] [place] [address] P155/140 ANTIBODY Negative Normal Negative [facility] Comment on above: Order Comment: Speci men Type: BLOOD SPECIMEN Ordering Facility: [facility] Address: [address] [place] [address] Result Comment: Perf ormed By: [facility] [address] [place] [address] Computer Language Coder: Kaushal Lowe MD, PhD CLIA Number: [id number] Performed By: #### M YOSPL #### [facility] [id number] [address] [place] [address] PL-12 (ALANYL-TRNA SYNTHETASE) ANTIBODY Negative Normal Negative [facility] Comment on above: Order Comment: Speci men Type: BLOOD SPECIMEN Ordering Facility: [facility] Address: [address] [place] [address] Performed By: #### M YOSPL #### [facility] [id number] [address] [place] [address] PL-7 (THREONYL-TRNA SYNTHETASE) ANTIBODY Negative Normal Negative [facility] Comment on above: Order Comment: Speci men Type: BLOOD SPECIMEN Ordering Facility: [facility] Address: [address] [place] [address] Performed By: #### M YOSPL #### [facility] [id number] [address] [place] [address] SAE1 (SUMO ACTIVATING ENZYME) AB Negative Normal Negative [facility] Comment on above: Order Comment: Speci men Type: BLOOD SPECIMEN Ordering Facility: [facility] Address: [address] [place] [address] Performed By: #### M YOSPL #### [facility] [id number] [address] [place] [address] SRP (SIGNAL RECOGNITION PARTICLE) AB Negative Normal Negative [facility] Comment on above: Order Comment: Speci men Type: BLOOD SPECIMEN Ordering Facility: [facility] Address: [address] [place] [address] Performed By: #### M YOSPL #### [facility] [id number] [address] [place] [address] TIF-1 GAMMA (155 KDA) AB Negative Normal Negative [facility] Comment on above: Order Comment: Speci men Type: BLOOD SPECIMEN Ordering Facility: [facility] Address: [address] [place] [address] Performed By: #### M YOSPL #### [facility] [id number] [address] [place] [address] RNA POLYMERASE III ABon 10- RNA POLYMERASE III AB 12 Units Normal 0-19 [facility] Comment on above: Order Comment: Speci men Type: BLOOD SPECIMEN Ordering Facility: [facility] Address: [address] [place] [address] Result Comment: INTE RPRETIVE INFORMATION: RNA Polymerase [...] antibodies associated with SSc, including centromere, Scl-70, U3-WOOD BORER, PM/Scl, or Th/To. Performed By: [facility] [address] [place] [address] Computer Language Coder: Kaushal Lowe MD, PhD CLIA Number: [id number] Performed By: #### R NAIII #### [facility] CLIA [id number] [address] [place] [address] Rheumatoid fact SerPl-aCncon 05-29-2024 Rheumatoid factor Qn [IU]/mL Normal <16 [facility] Comment on above: Order Comment: Carlton fields Type: BLOOD SPECIMEN Ordering Facility: [facility] Address: [address] [place] [address] Performed By: #### M YOSPL #### [facility]utch IA [id number] [address] [place] [address] Ribonucleoprotein extractabl e nuclear Ab Qn (S)on 05-29-2024 ANTI-WOOD BORER QUAL Negative Normal Negative [facility] Comment on above: Order Comment: Carlton fields Type: BLOOD SPECIMENOrdering Facility: [facility] Address: [address] [place] [address] Performed By: #### 1 7792-3, 97969-9, 43140-2, 24698-9, 77632-0, 63610-7, 31486-7, 05192-9 ####[facility] LABIA [id number] [address] [address] [place] RIBOSOMAL WOOD BORER QUAL Negative Normal Negative [facility] Comment on above: Order Comment: Speci men Type: BLOOD SPECIMEN Ordering Facility: [facility] Address: [address] [place] [address] Result Comment: Anti -Ribosomal RNA (Ribosomal P) antibody is used as an aid in diagnosis of systemic autoimmune diseases especially systemic lupus erythematosus and mixed connective tissue disease. Cross-reactivity with Anti-lazaro antibody is not uncommon. Clinical correlation is required. Test Methodology: Multiplex flow immunoassay. Performed By: #### M QASIM #### [facility] [id number] [address] [place] [address] SCL-70 extractable nuclear I gG IA Qn (S)on 05-29-2024 SCLERODERMA AB QUAL Negative Normal Negative [facility] Comment on above: Order Comment: Speci men Type: BLOOD SPECIMENOrdering Facility: [facility] Address: [address] [place] [address] Performed By: #### 1 7792-3, 49020-8, 95386-0, 67940-9, 10257-8, 00389-4, 21126-2, 02513-3 ####[facility] LABIA [id number] [address] [address] [place] SCLERODERMA IGG AB <0.2 Normal <1.0 [facility] Comment on above: Order Comment: Carlton fields Type: BLOOD SPECIMENOrdering Facility: [facility] Address: [address] [place] [address] Result Comment: Scl- 70/Scleroderma antibody test is used as an aid in diagnosis of systemic sclerosis especially the diffuse cutaneous form. A negative result cannot rule out systemic sclerosis. The final interpretation should consider clinical picture and other test results such as anti-centromere antibody. Test Methodology: Multiplex flow immunoassay. Performed By: #### 1 7792-3, 94696-5, 25135-5, 25821-2, 56898-0, 03182-0, 64041-5, 68508-4 ####[facility] [id number] [place] [address] [place] Sjogrens syndrome-A extracta ble nuclear Ab Qn (S)on 05-29-2024 SSA ANTIBODY QUAL Negative Normal Negative [facility] Comment on above: Order Comment: Speci men Type: BLOOD SPECIMENOrdering Facility: [facility] Address: [address] [place] [address] Performed By: #### 1 7792-3, 05048-6, 72409-8, 82190-9, 52310-7, 77819-8, 93952-3, 07527-6 ####[facility] [id number] [address] [place] Sjogrens syndrome-B extracta ble nuclear Ab Qn (S)on 05-29-2024 SSB ANTIBODY QUAL Negative Normal Negative [facility] Comment on above: Order Comment: Speci men Type: BLOOD SPECIMEN Ordering Facility: [facility] Address: [address] [place] [address] Performed By: #### M YOANTONIOL #### [facility] CLIA [id number] [address] [place] [address] Lazaro extractable nuclear Ig G Qn (S)on 05-29-2024 SM ANTIBODY QUAL Negative Normal Negative [facility] Comment on above: Order Comment: Speci men Type: BLOOD SPECIMEN Ordering Facility: [facility] Address: [address] [place] [address] Result Comment: Anti -Sm (Lazaro) antibody is used as an aid in diagnosis of systemic lupus erythematosus and its presence is associated with renal disease. A negative result cannot rule out systemic lupus erythematosus. Clinical correlation is required. Test Methodology: Multiplex flow immunoassay. Performed By: #### M YOSPL #### [employer] CLIA [id number] [address] [place] [address] cCP IgG [facility] 024 Cyclic citrullinated peptide IgG Qn <15 Normal <20 [facility] Comment on above: Order Comment: Speci men Type: BLOOD SPECIMENOrdering Facility: [facility] Address: [address] [place] [address] Performed By: #### 3 3935-8 ####[facility] LABCLIA [id number] [address] [id number] [id number] 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 He has a history of CAD and [...] Coronary atherosclerosis of unspecified type of vessel, andreafski or graft 07/30/2007 SD Date: 1985. CABG Date: 1986 - left [...] History of ventricular tachycardia 04/05/2011 Dr Latif [facility] Pure hypercholesterolemia 03/22/2005 Unspecified cardiovascular disease 03/22/2005 [facility]--Dr. Latif Ventricular tachycardia (HCC) 12/06/2022 Allergies: No [...] chronic interstitial disease. No superimposed acute process Mender Hand: [facility] Transcribe Date/Time: Apr 30 2024 4:22P... CT Chest: 05/16/2024 IMPRESSION: 1. Bilateral reticular opacities in a prominently peripheral and lower lung distribution with interstitial lung disease 2. There is a 4 mm nodule in the anterior left upper lobe 3. No thoracic lymphadenopathy Mender Hand: PSCB Transcribe Date/Time: May 21 2024 12:42P Dictated by : KANDY MOTA MD This examination was interpreted and the report reviewed and electronically signed by: KANDY MOTA MD on May 21 2024 1:33PM EST Results-Findings * * *Final Report* * * DATE OF EXAM: May 16 2024 10:15AM [facility] - CT CHEST WO IVCON / PROCEDURE REASON: Interstitial pulmonary disease (HCC) * * * * Physician Interpretation * * * * EXAMINATION: CHEST CT WITHOUT CONTRAST CLINICAL HISTORY: Interstitial pulmonary disease Technique: Spiral CT acquisition of the chest from the thoracic inlet to the upper abdome (more content not included)... Normal [facility] CT CHEST WO IVCONon 05-16-20 CT CHEST WO IVCON * * *Final Report* * * DATE OF EXAM: May 16 2024 10:15AM [facility] 0541 - CT CHEST WO IVCON / [...] left upper lobe 3. No thoracic lymphadenopathy Mender Hand: [facility] Transcribe Date/Time: May 21 2024 12:42P Dictated by : KANDY MOTA MD This examination was interpreted and the report reviewed and electronically signed by: KANDY MOTA MD on May 21 2024 1:33PM EST [id number] Normal [facility] OXIMETRY WITH AMBULATIONon 1 Alondra Merlos RPF [...] May 16, 2024 TIME: 9:38 AM Comment: [facility] CNOVon 04-30-2024 CNOV Office Visit (PULMWS ) MARSHAL CARRILLO ([id number]) 1945 M Date Time Provider Department 04/30/24 1:30 PM MILLIE CHESTER PULMWS During your visit today, we recorded the following information about you: Pulse Respiration Weight Height 76/minute 16/minute 78.9 kg 1.816 m Jasmina Urban LPN 04/30/2024 12:49 PM Signed Intake information documented in the prior visit with THELMA Mireles today. Millie Chester MD 04/30/2024 5:23 PM Signed . [facility] [place] Note Patient name: Marshal Carrillo PCP: Amilcar [...] Coronary atherosclerosis of unspecified type of vessel, andreafski or graft 07/30/2007 SD Date: 1985. CABG Date: 1986 - left [...] History of ventricular tachycardia 04/05/2011 Dr Latif [facility] Pure hypercholesterolemia 03/22/2005 Unspecified cardiovascular disease 03/22/2005 [place]--Dr. Latif Ventricular tachycardia (HCC) 12/06/2022 ALLERGIES No Known Allergies pantoprazole DR (PROTONIX) 20 mg tablet Take 1 tablet by mouth once daily. clopidogrel (PLAVIX) 75 m (more content not included)... Normal [facility] LUNG DIFFUSION CAPACITY (PASCUAL O)on 04-30-2024 DLCO (ml/min/mmHg) 16.51 ml/min/mm H g [facility] DLCO LLN (ml/min/mmHg) 14.39 ml/min/mmH g [facility] DLCO PREDICTED (ml/min/mmHg) 24.33 ml/min/mmH g [facility] DLCO ULN (ml/min/mmHg) 34.26 ml/min/mmH g [facility] DLCO/VA (ml/min/mmHg/L) 3.48 ml/min/mmH g/L [facility] DLCO/VA PREDICTED (ml/min/mmHg/L) 3.52 ml/min/mmH g/L [facility] DLCOcor PREDICTED (ml/min/mmHg) 24.33 ml/min/mmH g [facility] ERV PREDICTED (L) 1.34 L/S [facility] FEF25% PRE (L/S) 7.88 L/S [facility] SCF88-43% LLN (L/S) 0.78 L/S [facility] SPW73-68% PRE (L/S) 2.74 L/S [facility] VPH28-25% PREDICTED (L/S) 2.08 L/S [facility] FEF75% LLN (L/S) 0.17 L/S [facility] FEF75% PRE (L/S0 0.79 L/S [facility] FEF75% PREDICTED (L/S) 0.51 L/S [facility] FEF75% ULN (L/S) 1.48 L/S [facility] FET PRE (S) 5.14 S [facility] FEV1 LLN (L) 2.10 L [facility] FEV1 PRE (L) 2.84 L [facility] FEV1 PREDICTED (L) 2.92 L [facility] FEV1 ULN (L) 3.69 L [facility] FEV1/FVC LLN (%) 61 % [facility] FEV1/FVC PRE (%) 79 % [facility] FEV1/FVC PREDICTED (%) 75 % [facility] FVC LLN (L) 2.95 L [facility] FVC PRE (L) 3.59 L [facility] FVC PREDICTED (L) 4.01 L [facility] FVC ULN (L) 5.09 L [facility] IC PREDICTED (L) 2.67 L/S [facility] PEF LLN (L/S) 5.08 L/S [facility] PEF PRE (L/S) 7.89 L/S [facility] PEF ULN (L/S) 9.91 L/S [facility] SVC LLN (L) 2.95 L/S [facility] SVC PREDICTED (L) 4.01 L/S [facility] SVC ULN (L) 5.09 L/S [facility] VA (L) 4.83 L [facility] VA PREDICTED (L) 7.11 L [facility] No Panel Informationon 04-30 [facility] [address], [place] [address] Test Date: 2024-04-30 Pat Name: MARSHAL CARRILLO Department: Room: Gender: M Accountant Manager: : 1945 Requested By: Order Number: [id number] Reading MD: Millie Chester MD Interpretive Statements [...] 16:31:40 EDT by Millie Chester MD ID: [id number] Name: MARSHAL CARRILLO Race: White Ht: 71.50 [...] 6.67 FEF50/FIF50 0.64 90-100 FIVC (L) 3.58 HAW74-24 (L/sec) 2.74 0.78 2.08 4.00 132 Time [...] despite difficult testing session. PULMONARY FUNCTION LAB [facility] XR CHEST 2V FRONTAL/LATon XR CHEST [...] chronic interstitial disease. No superimposed acute process Mender Hand: PSCB Transcribe Date/Time: Apr 30 2024 4:22P Dictated by : AWA CONCEPCION MD This examination was interpreted and the report reviewed and electronically signed by: AWA CONCEPCION MD on Apr 30 2024 4:24PM EST [id number] Normal [facility] XR Chest PA and Lateralon IMPRESSION: Findings as described above are most consistent with chronic interstitial disease. No superimposed acute process Mender Hand: PSCB Transcribe Date/Time: Apr 30 2024 4:22P [...] soft tissues: Unremarkable. DIVISION OF RADIOLOGY [facility], [facility] * * *Final [...] chronic interstitial disease. No superimposed acute process Mender Hand: PAMELA Transcribe Date/Time: Apr 30 2024 4:22P Dictated by : AWA CONCEPCION MD This examination was interpreted and the report reviewed and electronically signed by: AWA CONCEPCION MD on Apr 30 2024 4:24PM EST [facility] Radiology Study [facility] (narrative) [facility] PA and LateralOrder ed By: [facility] Provider on 04-30-2024 [facility] No Panel Informationon 01-10 [facility] [address] [place] [address] Test Date: 2024-01-11 Pat Name: MARSHAL CARRILLO Department: Room: Gender: Male Accountant Manager: : 1945 Requested By: Order Number: [id number] Reading MD: Millie Chester MD Interpretive Statements [...] 12:01:03 EDT by Millie Chester MD ID: [id number] Name: MARSHAL CARRILLO Race: White Ht: 71.50 [...] 2.87 FEF50/FIF50 1.33 90-100 FIVC (L) 2.83 KFF12-32 (L/sec) 2.43 0.79 2.09 4.01 116 Time [...] with 2 acceptable maneuvers. PULMONARY FUNCTION LAB [facility] SPIROMETRY WITH DILATOR IF O BSTRUCTEDon 01-11-2024 DLCO (ml/min/mmHg) 15.88 ml/min/mm H g [facility] DLCO/VA (ml/min/mmHg/L) 3.07 ml/min/mmH g/L [facility] ERV BOX (L) 1.87 L [facility] ZRB87-35% PRE (L/S) 2.43 L/S [facility] FEV1 PRE (L) 2.21 L [facility] FEV1/FVC PRE (%) 81 % [facility] FRC Box (L) 3.87 L [facility] FVC PRE (L) 2.74 L [facility] IC BOX (L) 1.46 L [facility] PEF PRE (L/S) 4.73 L/S [facility] RV Box (L) 2.00 L [facility] RV/TLC Box (%) 38 % [facility] TLC Box (L) 5.33 L [facility] VA (L) 5.18 L [facility] VC (L) BOX 3.37 L [facility] XR Chest PA and Lateralon IMPRESSION: As above. Mender Hand: PSCB Transcribe Date/Time: Jan 10 2024 9:08A [...] and surgical clips. DIVISION OF RADIOLOGY Provider, [facility] - 01/10/2024 * * *Final Report* * * DATE OF EXAM: Jan 09 2024 11:16AM WOX 5291 - XR CHEST 2V FRONTAL/LAT / PROCEDURE REASON: Chronic obstructive pulmonary disease, unspecified COPD type (HCC) * * * * Physician Interpretation * * * * EXAMINATION: CHEST RADIOGRAPH (2 VIEW FRONTAL & LATERAL) CLINICAL HISTORY: Chronic obstructive pulmonary disease, unspecified COPD type ([facility]) MQ: [id number]_6 EXAM DATE/TIME: 01/09/2024 11:16 AM COMPARISON: No relevant prior studies available. RESULT: Lines, tubes, and devices: None. Lungs and pleura: COPD. Bibasilar atelectasis/scarring, infectious process less likely. No consolidation. No lung mass. No pleural effusion. No pneumothorax. Cardiomediastinal silhouette: Normal cardiomediastinal silhouette. Bones and soft tissues: Median sternotomy wires and surgical clips. IMPRESSION IMPRESSION: As above. Mender Hand: PSCB Transcribe Date/Time: Jan 10 2024 9:08A Dictated by : ASHLEY DEVLIN MD This examination was interpreted and the report reviewed and electronically signed by: ASHLEY DEVLIN MD on Jan 10 2024 9:09AM EST [facility] XR Chest PA and LateralOrder ed By: [facility] Provider on 01-10-2024 [facility] XR Chest PA and Lateralon Radiology Study observation (narrative) [facility] Orthopedic Visit Reporton Orthopedic Visit Report [facility] [address] [place] [address] OFFICE VISIT Date of Service: 10/12/23 MR#: [id number] Acct: [id number] Name: MARSHAL CARRILLO Rep #: [id number] : 1945 Provider: Dr. Jonathan Marsh MD Age/Sex: 78/M Location: [facility] Status: Signed Intake Vital Signs 09/05/23 09:09 [...] mg PO DAILY 09/07/23 [History Confirmed 10/12/23] [facility] Medical History Atherosclerotic heart disease of andreafski coronary artery without angina pectoris COVID-19 Diaphoresis [...] good m (more content not included)... Normal [facility] Wrist min 3 Viewson 10-12-19 24 Wrist min 3 Views [facility] [address] [place] [address] Wrist min 3 Views MR#: [id number] Acct: [id number] Name: MARSHAL CARRILLO Rep #: [id number] : 1945 M 78 From: Olga romo MD PCP: Dr. Amilcar Tamayo MD Status: DEP AMB Study: Wrist min 3 Views Date of Exam: 10/12/23 Exam# [id number] Ordering Dr: Jonathan Marsh MD [id number] INDICATION: distal radius fx EXAMINATION/TECHNIQUE: X-RAY - [...] Jonathan Marsh MD; Dr. Amilcar Tamayo MD Mender Hand: Signed Normal [facility] Orthopedic Visit Reporton Orthopedic Visit Report [facility] [address] [place] [address] OFFICE VISIT Date of Service: 09/14/23 MR#: [id number] Acct: [id number] Name: MARSHAL CARRILLO Rep #: [id number] : 1945 Provider: Dr. Jonathan Marsh MD Age/Sex: 78/M Location: [facility] Status: Signed Intake Vital Signs 09/05/23 09:09 [...] mg PO DAILY 09/07/23 [History Confirmed 09/14/23] [facility] Medical History Atherosclerotic heart disease of andreafski coronary artery without angina pectoris COVID-19 Diaphoresis [...] the hand but if he tries to hvac service tech something he does have pain. He describes his pain as an aching pain. He takes Tylenol for the pain but notes that the Tylenol doesn't help with the pain he gets when he tries to hvac service tech something. Denies numbness, tingling or other associated symptoms. He states that he has good ROM. He states that if he tries to hvac service tech anything he gets a sharp pain and [...] tingling n (more content not included)... Normal [facility] Wrist min [address] [facility] 09-14-19 24 Wrist min 3 Views [facility] [address] [place] [address] Wrist min 3 Views MR#: [id number] Acct: [id number] Name: MARSHAL CARRILLO Rep #: [id number] : 1945 M 78 From: Nilson valadez MD PCP: Dr. Amilcar Tamayo MD Status: DEP AMB Study: Wrist min 3 Views Date of Exam: 09/14/23 Exam# [id number] Ordering Dr: Jonathan Marsh MD [id number] STUDY: X-RAY - LEFT WRIST REASON FOR [...] Jonathan Marsh MD; Dr. Amilcar Tamayo MD Mender Hand: Signed Normal [facility] Orthopedic Visit Reporton Orthopedic Visit Report [facility] [facility] [address] [place] [address] OFFICE VISIT Date of Service: 09/07/23 MR#: [id number] Acct: [id number] Name: MARSHAL CARRILLO Rep #: [id number] : 1945 Provider: Dr. Jonathan Marsh MD Age/Sex: 78/M Location: [facility] Status: Signed with Addenda ADDENDUM by Betsy Sterling on 09/07/23 at 1124 Office Procedure Documentation entered by Betsy Sterling 09/07/23 11:24: Cast Applied Cast Cast placed: Short arm cast applied to Left Closed treatment of... distal radial fx/epi sep,w/w/o fx ulnar sty;w/o manip 79124: Yes Alvo Alvo Material: No Date ____ cc: Dr. Amilcar [...] PFSH Medical History Atherosclerotic heart disease of andreafski coronary artery without angina pectoris COVID-19 Diaphoresis [...] the hand but if he tries to hvac service tech something he does have pain. He describes his pain as an aching pain. He takes Tylenol for the pain but notes that the Tylenol doesn't help with the pain he gets when he tries to hvac service tech something. Denies numbness, tingling or other associated symptoms. He states that he has good ROM. He states that if he tries to hvac service tech anything he gets a sharp pain and [...] WRIST: Exami (more content not included)... Normal [facility] Brain/Head without Contrasto n 09-05-2023 Brain/Head without Contrast [facility] Imaging Services [address] [place] [address] Brain/Head without Contrast MR#: [id number] Acct: [id number] Name: MARSHAL CARRILLO Rep #: [id number] : 1945 78 From: Tanvir maharaj MD PCP: Dr. Amilcar Tamayo MD Status: REG ER Study: Brain/Head without Contrast Date of Exam: 08/15 11/04 Exam# [id number] Ordering Dr: Demarcus Greene DO [id number] STUDY: CT BRAIN WITHOUT CONTRAST REASON FOR [...] 10:39 EST Reading Location ID and State: [address] [place] [address] , Service support , CC: Dr. Demarcus Greene DO; Dr. Amilcar Tamayo MD Mender Hand: Signed Normal [facility] Emergency Department Summary on 09-05-2023 Emergency Department Summary [facility] Medical Records Department [address] [place] [address] Emergency Department Summary 09/05/23 MR#: [id number] Acct: [id number] Name: MARSHAL ACRRILLO Rep #: [id number] : 1945 78 From: Demarcus Greene DO [...] He denies any back or neck pain. [facility] Medical History Atherosclerotic heart disease of andreafski coronary artery without angina pectoris COVID-19 Diaphoresis [...] Blood Press (more content not included)... Normal [facility] Wrist min 3 Viewson 09-05-19 24 Wrist min 3 Views [facility] Imaging Services [address] [place] [address] Wrist min 3 Views MR#: [id number] Acct: [id number] Name: MARSHAL CARRILLO Rep #: [id number] : 1945 M 78 From: Tanvir maharaj MD PCP: Dr. Amilcar Tamayo MD Status: REG ER Study: Wrist min 3 Views Date of Exam: 09/05/23 Exam# [id number] Ordering Dr: Demarcus Greene DO [id number] STUDY: X-RAY - LEFT WRIST REASON FOR [...] 10:38 EST Reading Location ID and State: [facility] / [place] , Service support , CC: Dr. Demarcus Greene DO; Dr. Amilcar Tamayo MD Mender Hand: Signed Normal [facility] PET/CT CARDIAC PERF REST/ STRESSon 07-11-2023 [facility] Cardiology Visit Reporton Cardiology Visit Report [facility] [address] [place] [address]. [address] [place] [address] OFFICE VISIT Date of Service: 04/18/23 MR#: [id number] Acct: [id number] Name: MARSHAL CARRILLO Rep #: [id number] : 1945 Provider: Dr. Dale Stock MD Age/Sex: 77/M Location: [facility] Status: Signed [facility] History of Present Illness Details: [...] Reasons: 6 m fu PREV PFM PT Director Writing Required: No Accompanied by: Self Is patient [...] 04/18/23] Ejection fraction %: 65 to 70 [facility] Medical History (Updated 04/18/23 @ 14:[address] Dale Stock MD) Atherosclerotic heart disease of andreafski coronary artery without angina pectoris COVID-19 Diaphoresis [...] is mild (more content not included)... Normal [facility] US SCREENING FOR AAAon 06-20 [facility] Basophil percentageon 2021 Bilirubin [Mass/Vol] 0.70 mg/dL 0.20-1.00 [facility] Work Phone: Comment on above: For patients on eltr ombopag therapy, use of Dimension [place] TBIL is not recommended. Cholesterol [Mass/Vol] 143 mg/dL <200 [facility] Work Phone: Comment on above: <200 mg/dL Desirable 200-240 mg/dL Borderline >240 mg/dL High Risk Protein [Mass/Vol] 6.7 g/dL 6.4-8.2 [facility] Work Phone: Triglyceride [Mass/Vol] 91 mg/dL [facility] Work Phone: Comment on above: The drugs N-Acetylcy steine and Metamizole may falsely depress this assay.Serum Triglycerides Reference Interval Normal <150 mg/dL Borderline high 150 - 199 mg/dL High 200 - 499 mg/dL Very High > or = 500 mg/dL Direct bilirubinon 2 Bilirubin.direct [Mass/Vol] 0.20 mg/dL 0.00-0.30 [facility] Work Phone: Laboratory - Chemistry and C hemistry - challengeon 10-26-2021 ALP [Catalytic activity/Vol] 64 U/L 45-117 [facility] Work Phone: ALT [Catalytic activity/Vol] 20 U/L 16-61 [facility] Work Phone: Globulin (S) [Mass/Vol] 3.4 g/dL 2.2-4.2 [facility] Work Phone: Serum or plasma albumin kal urement (mass/volume)on 10-26-2021 Albumin [Mass/Vol] 3.3 g/dL 3.2-5.0 [facility] Work Phone: Serum or plasma cholesterol in HDL measurement (mass/volume)on 10-26-2021 Cholesterol in HDL [Mass/Vol] 51 mg/dL [facility] Work Phone: Comment on above: The drugs N-Acetylcy steine and Metamizole may falsely depress this assay. Reference Range HDL <40 mg/dL Low HDL Cholesterol HDL >or= 60 mg/dL High HDL Cholesterol Serum or plasma cholesterol in VLDL measurement (mass/volume)on 10-26-2021 Cholesterol in VLDL [Mass/Vol] 18 mg/dL 5-40 [facility] Work Phone: Serum or plasma low density lipoprotein (LDL) cholesterol measurement (mass/volume)on 10-26-2021 Cholesterol in LDL [Mass/Vol] 74 mg/dL 0-130 [facility] Work Phone: Thin prep Papanicolaou smear with manual screeningon 10-26-2021 Thin prep Papanicolaou smear with manual screening 23 U/L 15-37 [facility] Work Phone: No Panel Informationon 08-13 POC SARS CoV-2 Antigen Positive [facility] Work Phone: ANES [place] 02-28-2018 ANES POST HNO ID: [id number] thor: Dayanna Fletcherervice: AnesthesiologyAuthor Type: AnesthesiologistType: Anesthesia [...] Marshal CarrilloDATE: February 28, 2018 PAGER/CONTA[facility] PRE[facility]-28-2018 ANES PREOP HNO ID: [id number] thor: Dayanna ZamaniniService: AnesthesiologyAuthor Type: AnesthesiologistType: Anesthesia [...] Coronary atherosclerosis of unspecified type of vessel, andreafski or graft07/30/2007 [place] Date: 1985. CABG Date: 1986 - left internal mammary artery toleft anterior descending, right internal mammary artery to right coronaryartery, and saphenous vein graft to diagonal artery. PCI Date: 05/23/02- stents in his ostial and proximal circumflex and in his obtuse marginalbranch PTCA Date: 05/23/02 - posterior lateral branch- History of ventricular tachycardia 04/05/2011 Dr Latif [facility]- Pure hypercholesterolemia 03/22/2005- Unspecified cardiovascular disease 03/22/2005 [place]--Dr. Nguyen SURGICAL HISTORYProcedure Laterality Date- ANGIOPLASTY 2001 08 angioplasty- COLONOSCOP W/ OR W/O BRSH SPEC 09/14/07 Very long/lax colon- PAST SURGICAL HISTORY OF 1986 triple bypass surgery heart at [facility]- PAST SURGICAL HISTORY OF 2010 Squemous Cell- [...] February 28, 2018 : 10:00 AM CSN: [id number] [facility] OPERATIVE NOon 02-28-2018 OPERATIVE NO HNO ID: [id number] thor: Watson Fajardo CostinService: OphthalmologyAuthor Type: PhysicianType: Operative ReportFiled: 02/28/2018 11:37 AMNote Text:OPERATIVE/PROCEDURE REPORTLOG ID: [id number]/PROCEDURE DATE: 02/28/2018INCISION/PROCEDURE START TIME: 10:32 AMINCISION CLOSE/PROCEDURE END TIME: 11:25 AMSURGEON(S)/PROCEDURALIST(S) AND C ARCHITECT(S):Surgeon(s) and Role: * Watson Mclaughlin - Diego [...] 28, 2018 : 11:31 AM PAGER/CONTACT #: [facility] OF [facility] 02-28-2018 PLAN OF CARE O ID: [id number] thor: Anahi Lazaro (Bulk Mail Technician)Service: (none)Author Type: TechnicianType: Plan of CareFiled: 02/28/2018 1:52 PMNote Text:[employer] BEDSIDE DELIVERY SURVEY1. Patient to use [facility] Bedside Delivery - YES2. If fax, patient would like us to fax prescriptions to [facility]. Pharmacy: b. Location: c. Phone:3. Insurance card on file - YES4. Credit card for payment - NO [facility] PLAN OF CARE HNO ID: [id number] thor: Anahi Lazrao ([employer])Service: (none)Author Type: TechnicianType: Plan of CareFiled: 02/28/2018 1:53 PMNote Text:Pharmacy Discharge Medication Service:This patient has elected to [facility] their discharge prescriptions [facility]. Theprescriptions are currently being processed. A follow-up note will beentered once the prescriptions have been filled and delivered to thepatient. Please contact me with any questions or updates to the patient'sdischarge medications.Anahi Lazaro ([employer])DCT Contact Info: [facility] PLAN OF CARE HNO ID: [id number] thor: Anahi Lazaro ([employer])Service: (none)Author Type: TechnicianType: Plan of CareFiled: 02/28/2018 1:53 PMNote Text:PHARMACY BEDSIDE DELIVERY SERVICEPatient Name: Marshal CarrilloMRN: [id number] marked outpatient medications were Filled at: [place] and delivered tothe patient's bedside to patientMedication ListSTART taking these medicationserythromycin ophthalmic ointmentApply 1/2 inch ribbon per application to left eye and nose AFTER PATCHREMOVED BY DOCTOR IN 1 WEEKX HYDROcodone-acetaminophen 5-325 mg per tabletCommonly known as: NORCOTake 1 tablet by mouth every 4 hours as needed (Moderate Pain (4-6),Severe Pain (7-10)) for up to 7 days.Anahi Lazaro ([employer])PAGER: Timoteo 2017 1:53 PM [facility] PT EDon 02-28-2018 PT ED HNO ID: [id number] thor: Lorena MariaRn) Kevin, DUONGervice: NursingAuthor Type: Registered NurseType: Patient EducationFiled: 02/28/2018 12:19 PMNote Text:POST OP LEARNING RESPONSEINSTRUCTION PROVIDED TO: Patient and family memberMETHOD OF INSTRUCTION: Written instruction - handoutsVerbal instructionPATIENT / FAMILY RESPONSE: Verbalizes understanding of: QPSW-NEABJYXPPTFUPHDIFKTQV-Ovol ect actions to take to reduce post procedurecomplicationsFOLLOW-UP PLAN: Follow up phone call.SUPPLEMENTAL MATERIAL: NoneREFERRAL (RECOMMENDATION): NoneElectronically Signed By: Lorena Brown RN In Department: [facility] SURGERY Normal [facility] PT ED HNO ID: [id number] thor: Roxie (Rn) Compa Billy: (none)Author Type: Registered NurseType: Patient EducationFiled: 02/28/2018 10:04 AMNote Text:PRE OP LEARNING ASSESSMENTPROCEDURE/SURGERY: SURGERY: L lower eyelid MohsREADINESS TO LEARNCOGNITIVE ABILITY: Alert and orientedMOTIVATION TO LEARN: EagerFAMILY SUPPORT: High - Very involved in pt carePATIENT LEARNS BEST BY: Individual InstructionVerbal InstructionFACTORS AFFECTING LEARNING: NonePHYSICAL LIMITATIONS AFFECTING LEARNING: NoneElectronically Signed By: Roxie Billy RN In Department: [facility] NURSING PROGon 02-27-2018 NURSING PROG HNO ID: [id number] thor: Danyelle (Rn) Roxy: (none)Author Type: Registered NurseType: Nursing Progress NoteFiled: 02/27/2018 12:53 PMNote Text:PACC Nurse Progress NoteHistory AND Physical:PACC Visit Date: 0-64-08Ilfogrbg HANDP Date: 02-23-18ED visit Date: N/AOutside HANDP Scanned Date: N/ALabs Within Last 6 Months:CBC: Date 01-12-18 Platelet count 120; known thrombocytopenia and resultsconsistent with all previous resultsBMP/CMP: Date 01-12-18 WNLDermatopathology Report Date: 02-07-18; external and scanned into Epic [id number] Within Last 12 Months:N/ACardiac Testing:EKG in last 12 Months: Yes: Date: 06-26-17, Comment: Confirmed; see Epicfor resultsStress Test Date: 05-09-17, Comment: External and scanned into Epic [id number]; see [facility] for resultsBMI Percentile (PEDS):N/ARisk Assessment:N/AAnesthesia Review:N/ANarrative:N/APre-op Considerations:Per PACC visit note 02-23-18:CAD - With previous stent placement and CABG - The patient is currently onPlavix. Based on my discussion with cardiology stop [address] Hickman( per pt and and per Roosevelt in Dr Mclaughlin's office)Chart Check:Alistair Cuenca 2017 12:44 PM [facility] HOSP 02-22-2018 HOSP Patient:Roscoe Carrillo AMRN: [...] for the following basenames: K,HCTProgress Notes ([facility] REJ):Rita Landers JIGGER ARTISAN 02/28/2018 10:11 AM Sign at close encounterMOHS MICROGRAPHIC OPERATIVE REPORTSERVICE DATE: 02/28/2018SERVICE TIME: 7:24 AMLOCATION:Lupe Perry [facility] [place], [place] [address]UGWQHHGRP PROVIDER:Watson Mclaughlin MD[address] [facility] [address]GJDDOJNKS START TIME: 0810PROCEDURE END TIME: 9:22 AMSURGEON: Dr. Homa GranadosFELLOW: WilkersonREGISTERED NURSE: Mo PRACTICAL NURSE: HeatherEDICVIDHYA C ARCHITECT: BarnoANTICOAGULANTS:PlavixIMPLA NTED DEVICES: NoneANTIBIOTIC PROPHYLAXIS: Not requiredTRANSPLANT [...] Available at Bedside: Outside pathology report # [id number]([facility])Pre-op Size: 1.1 cm [...] x 1.3cmFinal Size: Area 1.9 x 1.3 [id number] ANESTHETIC: 3cc 1% Lidocaine HCl with Epinephrine [...] given by Lolly post repairPATIENT DISCHARGED TO OUTSIDE PLANT CABLE ENGINEER/NAME: wifeFOLLOW UP: Referred to Oculoplastic Surgery for [...] PAGER/CONTACT #:Previous VersionProgress Notes (CARD INTERVENTION MAIN):Theresa Calvertthnahakira Coord 02/22/2018 9:09 AM SignedAnalisa [facility] [phone] scheduled for surgery on 02/28 need to know by today if patient can stopPlavix/aspirinShe states that a fax was sent earlier this weekSlilagloria [facility] 02/26/2018 8:41 AM SignedRec'd fax request concerning the Plavix / ASA for MOHS repair OS lower eyelid.Faxed back reply on 02/22/18 with the following directives:OK to d/c Plavix 5 days prior to procedure and resume when physician feels itOK.Patient MUST remain on ASA without interruption.(also discussed with office staff on telephone) [facility] Office Visiton 05-01-2017 Dietary management education, guidance, and counseling (procedure) yes Invalid Interpretation Code [facility] Work Phone: Documentation of current medications (procedure) Done Invalid Interpretation Code [employer] Work Phone: Fall risk assessment No Invalid Interpretation Code [employer] Work Phone: [phone] Protein mass conc Done Invalid Interpretation Code [employer] Work Phone: Tobacco smoking status NHIS Former smoker Invalid Interpretation Code [employer] Work Phone: [phone] Tobacco use CPHS Former smoker Invalid Interpretation Code [employer] Work Phone: Lab Report: Lipid Profileon 04-22-2017 Cholesterol 144 mg/dL Invalid Interpretation Code 200 [employer] Work Phone: [phone] HDL Cholesterol 54 mg/dL Invalid Interpretation Code [employer] Work Phone: [phone] LDL Cholesterol 67 mg/dL Invalid Interpretation Code 0-130 [employer] Work Phone: Triglyceride 114 mg/dL Invalid Interpretation Code [employer] Work Phone: very low density lipoproteins 23 mg/dL Invalid Interpretation Code 5-40 [employer] Work Phone: [phone] Lab Report: Liver Profileon 04-22-2017 Alanine aminotransferase (ALT) 25 U/L Invalid Interpretation Code 12-78 [employer] Work Phone: [phone] Albumin 3.6 g/dL Invalid Interpretation Code 3.4-5.0 [employer] Phone: [phone] Alkaline phosphatase (ALP) 60 U/L Invalid Interpretation Code 45-117 [employer] Work Phone: [phone] ALP enzyme act/vol (Bld) 60 U/L Invalid Interpretation Code 45-117 [employer] Work Phone: [phone] Aspartate aminotransferase (AST) 30 U/L Invalid Interpretation Code 15-37 [employer] Phone: [phone] Bilirubin (direct) 0.27 mg/dL Invalid Interpretation Code 0.00-0.30 [employer] Phone: [phone] Bilirubin (total) 1.00 mg/dL Invalid Interpretation Code 0.20-1.00 [employer] Phone: [phone] Globulin 3.2 g/dL Invalid Interpretation Code 2.3-3.5 [employer] Phone: [phone] Globulin mass conc (S) 3.2 g/dL 2.3-3.5 [employer] Phone: [phone] Protein 6.8 g/dL Invalid Interpretation Code 6.4-8.2 [employer] Phone: [phone] Office Visiton 11-07-2016 Dietary management education, guidance, and counseling (procedure) yes Invalid Interpretation Code [employer] Phone: [phone] Documentation of current medications (procedure) Done Invalid Interpretation Code [employer] Phone: [phone] Clinical Lists Update: Prelo circular tank cooper 02-09-2016 Calcium 8.6 mg/dL Invalid Interpretation Code [employer] Phone: [phone] Chloride 103 mmol/L Invalid Interpretation Code [employer] Phone: [phone] CO2 26 mmol/L Invalid Interpretation Code [employer] Work Phone: [phone] CO2 ppres (BldV) 26 mmol/L Invalid Interpretation Code [employer] Work Phone: [phone] Creatinine 0.96 mg/dL Invalid Interpretation Code [employer] Work Phone: [phone] Glucose 84 mg/dL Invalid Interpretation Code [employer] Work Phone: [phone] Glucose mass conc 84 mg/dL Invalid Interpretation Code [employer] Work Phone: [phone] Hematocrit (HCT) 43.6 % Invalid Interpretation Code [employer] Work Phone: [phone] Hematocrit Volume Fraction (Bld) 43.6 % [employer] Work Phone: [phone] Hemoglobin (HGB) 14.3 g/dL Invalid Interpretation Code [employer] Work Phone: [phone] Platelets 125 10*3/mm3 Invalid Interpretation Code [employer] Work Phone: [phone] Platelets #/vol (Bld) 125 10*3/mm3 [employer] Work Phone: [phone] Potassium 4.1 mmol/L Invalid Interpretation Code [employer] Work Phone: [phone] Sodium 141 mmol/L Invalid Interpretation Code [employer] Work Phone: [phone] Urea nitrogen 16 mg/dL Invalid Interpretation Code [employer] Work Phone: [phone] WBC #/vol (Bld) 5.3 10*3/uL [employer] Work Phone: [phone] WBC (Leukocytes) 5.3 10*3/uL Invalid Interpretation Code [employer] Work Phone: [phone] Office Visiton 11-09-2015 Fall risk assessment 26/26 Invalid Interpretation Code [employer] Phone: [phone] Clinical Lists Updateon 10-13 Left ventricular Ejection fraction 55 % Invalid Interpretation Code [employer] Work Phone: [phone] Office Visiton 04-27-2015 Tobacco use CPHS Former smoker Invalid Interpretation Code [employer] Phone: [phone] Office Visit: [facility] 10-21-19 15 cardiac risk group C Invalid Interpretation Code [employer] Work Phone: [phone] General cardiovascular disease 10Y risk [#] [place] no N/A Invalid Interpretation Code [employer] Work Phone: [phone] Tobacco smoking status NHIS Never Invalid Interpretation Code [employer] Work Phone: [phone] Replaced Document: Sandi Dawnon 10-20-2014 BUN (urea nitrogen) Sinus Rhythm - occas ional ectopic ventricular beat -Right bundle branch block. ABNORMAL Invalid Interpretation Code [employer] Work Phone: [phone] EKG QRS axis -24 deg Invalid Interpretation Code [employer] Work Phone: [phone] GE use only - for [employer] import when terms are not otherwise specified 457 ms Invalid Interpretation Code [employer] Work Phone: P [place] 50 deg Invalid Interpretation Code [employer] Work Phone: [phone] P wave axis, electrocardiogram 50 deg Invalid Interpretation Code [employer] Work Phone: [place] Interval 174 ms Invalid Interpretation Code [employer] Work Phone: [place] interval, electrocardiogram 174 ms Invalid Interpretation Code [employer] Work Phone: [phone] Pulse (Heart Rate) 70 /min Invalid Interpretation Code [employer] Work Phone: QRS axis, electrocardiogram -24 deg Invalid Interpretation Code [facility] Work Phone: QRS Duration 152 ms Invalid Interpretation Code [employer] Work Phone: QRS duration, electrocardiogram 152 ms Invalid Interpretation Code [facility] Work Phone: QT Interval new path ms Invalid Interpretation Code [facility] Work Phone: QT interval, electrocardiogram new path ms Invalid Interpretation Code [employer] Work Phone: QTc [place] 457 ms Invalid Interpretation Code [employer] Work Phone: T [place] 8 deg Invalid Interpretation Code [facility] Work Phone: T wave axis, electrocardiogram 8 deg Invalid Interpretation Code [facility] Work Phone: [phone] Urea nitrogen mass conc Sinus Rhythm - occasional ectopic ventricular beat -Right bundle branch block. ABNORMAL [employer] Work Phone: [phone] External Other: Preferred Me thod of Contacton 06-18-2014 methcontact secmsg Invalid Interpretation Code [facility] Work Phone: [phone] Patient's prefered method of contact secmsg Invalid Interpretation Code [employer] Work Phone: [phone] Office Visiton 04-29-2014 Anion gap 10 mmol/L Invalid Interpretation Code [employer] Work Phone: [phone] Anion gap 4 molar conc 10 Invalid Interpretation Code [employer] Work Phone: [phone] Anion gap molar conc 10 mmol/L [employer] Work Phone: [phone] Glucose 82 mg/dL Invalid Interpretation Code [employer] Work Phone: [phone] Glucose fasting mass conc 82 mg/dL [employer] Work Phone: [phone] Glucose fasting mass conc (BldV) 82 mg/dL Invalid Interpretation Code [employer] Work Phone: [phone] Clinical Lists Update: Prelo circular tank cooper 02-21-2014 Erythrocytes (RBC) 4.77 10*6/uL Invalid Interpretation Code [employer] Work Phone: [phone] MCH 26.6 pg Low [employer] Work Phone: [phone] MCH Entitic mass (RBC) 26.6 pg Low [employer] Work Phone: [phone] MCV 79.0 fL Low [employer] Work Phone: [phone] MCV Entitic volume (RBC) 79.0 fL Low [employer] Work Phone: [phone] RBC #/vol (Bld) 4.77 10*6/uL [employer] Work Phone: [phone] Office Visit: [facility] 11-27-19 14 Triglyceride 118 mg/dL Invalid Interpretation Code [employer] Work Phone: [phone] Office Visiton 05-04-2013 MCHC 33 g/dL Invalid Interpretation Code [employer] Work Phone: [phone] MCHC mass conc (RBC) 33 g/dL [employer] Work Phone: [phone] Replaced Document: Sandi Coyle 05-14-2012 Pulse (Heart Rate) 443 ms Invalid Interpretation Code [employer] Work Phone: [phone] Lab Report: Mary Jo @ CCFon Globulin 2.4 g/dL Invalid Interpretation Code [employer] Work Phone: [phone] Globulin mass conc (S) 2.4 g/dL [employer] Work Phone: [phone] Erythrocyte distribution width Ratio (RBC) 13.0 % [facility] Work Phone: [phone] MCHC 34.2 % Invalid Interpretation Code [facility] Work Phone: [phone] mass conc (RBC) 34.2 % [employer] Work Phone: [phone] Platelet mean volume Entitic volume (Bld) 12.0 fL [employer] Work Phone: [phone] PMV by [place] 12.0 fL Invalid Interpretation Code [employer] Work Phone: [phone] RDW-CA 13.0 % Invalid Interpretation Code [employer] Work Phone: [phone] Vital Signs Date Time Vital Sign Value Performing Clinician Facility 01-20-2025 09:30-0400 Body mass index (BMI) [Ratio] 22.42 kg/m2 Amilcar Tamayo MD Work Phone: [facility] 01-20-2025 09:30-0400 Body weight 75 kg Amilcar Tamayo MD Work Phone: [facility] 01-20-2025 09:30-0400 Diastolic blood pressure 65 mm[Hg] Amilcar Tamayo MD Work Phone: [facility] 01-20-2025 09:30-0400 Heart rate 59 /min Amilcar Tamayo MD Work Phone: [facility] 01-20-2025 09:30-0400 Respiratory rate 16 /min Amilcar Tamayo MD Work Phone: [facility] 01-20-2025 09:30-0400 Systolic blood pressure 115 mm[Hg] Amilcar Tamayo MD Work Phone: [facility] 01-13-2025 09:26-0400 Body mass index (BMI) [Ratio] 23.06 kg/m2 Pulm Wstr Work Phone: [facility] 01-13-2025 09:26-0400 Body weight 77.11 kg Pulm Wstr Work Phone: [facility] 08-28-2024 09:24-0500 Body mass index (BMI) [Ratio] 23.87 kg/m2 Homa Click PRODUCT DESIGN SPECIALIST.PRESS ROOM SUPERVISOR Work Phone: [facility] 08-28-2024 09:24-0500 Body weight 79.83 kg Homa Click PRODUCT DESIGN SPECIALIST.PRESS ROOM SUPERVISOR Work Phone: [facility] 08-28-2024 09:24-0500 Heart rate 56 /min Homa Click PRODUCT DESIGN SPECIALIST.PRESS ROOM SUPERVISOR Work Phone: [facility] 08-28-2024 09:24-0500 SaO2% (BldA) [Mass fraction] 92 % Homa Click PRODUCT DESIGN SPECIALIST.PRESS ROOM SUPERVISOR Work Phone: [facility] 07-08-2024 15:53-0500 Body height 182.9 cm Branden Hickman MD Work Phone: [facility] 07-08-2024 15:53-0500 Body mass index (BMI) [Ratio] 23.87 kg/m2 Branden Hickman MD Work Phone: [facility] 07-08-2024 15:53-0500 Body weight 79.83 kg Branden Hickman MD Work Phone: [facility] 07-08-2024 15:53-0500 Diastolic blood pressure 73 mm[Hg] Branden Hickman MD Work Phone: [facility] 07-08-2024 15:53-0500 Heart rate 74 /min Branden Hikcman MD Work Phone: [facility] 07-08-2024 15:53-0500 Respiratory rate 18 /min Branden Hickman MD Work Phone: [facility] 07-08-2024 15:53-0500 SaO2% (BldA) [Mass fraction] 99 % Branden Hickman MD Work Phone: [facility] Comment on above: RA 07-08-2024 15:53-0500 Systolic blood pressure 153 mm[Hg] Branden Hickman MD Work Phone: [facility] 07-01-2024 11:15-0500 Diastolic blood pressure 54 mm[Hg] Talib Shawn PRODUCT DESIGN SPECIALIST.PRESS ROOM SUPERVISOR Work Phone: [facility] 07-01-2024 11:15-0500 Systolic blood pressure 138 mm[Hg] Talib Shawn PRODUCT DESIGN SPECIALIST.PRESS ROOM SUPERVISOR Work Phone: [facility] 07-01-2024 11:14-0500 Body mass index (BMI) [Ratio] 24.23 kg/m2 Talib Shawn PRODUCT DESIGN SPECIALIST.PRESS ROOM SUPERVISOR Work Phone: [facility] 07-01-2024 11:14-0500 Body weight 79.9 kg Talib Shawn PRODUCT DESIGN SPECIALIST.PRESS ROOM SUPERVISOR Work Phone: [facility] 07-01-2024 11:14-0500 Heart rate 59 /min Talib Shawn PRODUCT DESIGN SPECIALIST.PRESS ROOM SUPERVISOR Work Phone: [facility] 07-01-2024 11:14-0500 SaO2% (BldA) [Mass fraction] 93 % Talib Shawn PRODUCT DESIGN SPECIALIST.PRESS ROOM SUPERVISOR Work Phone: [facility] 05-28-2024 09:53-0400 Body mass index (BMI) [Ratio] 24.23 kg/m2 Homa Click PRODUCT DESIGN SPECIALIST.PRESS ROOM SUPERVISOR Work Phone: [facility] 05-28-2024 09:53-0400 Body temperature 97.3 [degF] Homa Click PRODUCT DESIGN SPECIALIST.PRESS ROOM SUPERVISOR Work Phone: [facility] 05-28-2024 09:53-0400 Body weight 79.92 kg Homa Click PRODUCT DESIGN SPECIALIST.PRESS ROOM SUPERVISOR Work Phone: [facility] 05-28-2024 09:53-0400 Diastolic blood pressure 65 mm[Hg] Homa Click PRODUCT DESIGN SPECIALIST.PRESS ROOM SUPERVISOR Work Phone: [facility] 05-28-2024 09:53-0400 Heart rate 70 /min Homa Click PRODUCT DESIGN SPECIALIST.PRESS ROOM SUPERVISOR Work Phone: [facility] 05-28-2024 09:53-0400 SaO2% (BldA) [Mass fraction] 99 % Homa Click PRODUCT DESIGN SPECIALIST.PRESS ROOM SUPERVISOR Work Phone: [facility] 05-28-2024 09:53-0400 Systolic blood pressure 120 mm[Hg] Homa Click PRODUCT DESIGN SPECIALIST.PRESS ROOM SUPERVISOR Work Phone: [facility] 05-16-2024 09:36-0400 Body mass index (BMI) [Ratio] 23.93 kg/m2 Pulm Wstr Work Phone: [facility] 05-16-2024 09:36-0400 Body weight 78.93 kg Pulm Wstr Work Phone: [facility] 04-30-2024 12:58-0400 Body height 181.6 cm Pulm Wstr Work Phone: [facility] 04-30-2024 12:58-0400 Body mass index (BMI) [Ratio] 23.93 kg/m2 Pulm Wstr Work Phone: [facility] 04-30-2024 12:58-0400 Body weight 78.93 kg Pulm Wstr Work Phone: [facility] 04-30-2024 12:58-0400 Heart rate 76 /min Pulm Wstr Work Phone: [facility] 04-30-2024 12:58-0400 Respiratory rate 16 /min Pulm Wstr Work Phone: [facility] 04-30-2024 12:58-0400 SaO2% (BldA) [Mass fraction] 96 % Pulm Wstr Work Phone: [facility] 01-11-2024 11:07-0400 Body height 181.6 cm Pulm Wstr Work Phone: [facility] 01-11-2024 11:07-0400 Body mass index (BMI) [Ratio] 23.93 kg/m2 Pulm Wstr Work Phone: [facility] 01-11-2024 11:07-0400 Body weight 78.93 kg Pulm Wstr Work Phone: [facility] 01-11-2024 11:07-0400 Heart rate 74 /min Pulm Wstr Work Phone: [facility] 01-11-2024 11:07-0400 Respiratory rate 14 /min Pulm Wstr Work Phone: [facility] 01-11-2024 11:07-0400 SaO2% (BldA) [Mass fraction] 98 % Pulm Wstr Work Phone: [facility] 01-09-2024 10:27-0400 Body mass index (BMI) [Ratio] 23.73 kg/m2 Talib Shawn PRODUCT DESIGN SPECIALIST.PRESS ROOM SUPERVISOR Work Phone: [facility] 01-09-2024 10:27-0400 Body weight 79.38 kg Talib Shawn PRODUCT DESIGN SPECIALIST.PRESS ROOM SUPERVISOR Work Phone: [facility] 01-09-2024 10:27-0400 Diastolic blood pressure 68 mm[Hg] Talib Shawn PRODUCT DESIGN SPECIALIST.PRESS ROOM SUPERVISOR Work Phone: [facility] 01-09-2024 10:27-0400 Heart rate 83 /min Talib Shawn PRODUCT DESIGN SPECIALIST.PRESS ROOM SUPERVISOR Work Phone: [facility] 01-09-2024 10:27-0400 SaO2% (BldA) [Mass fraction] 98 % Talib Shawn PRODUCT DESIGN SPECIALIST.PRESS ROOM SUPERVISOR Work Phone: [facility] 01-09-2024 10:27-0400 Systolic blood pressure 110 mm[Hg] Talib Shawn PRODUCT DESIGN SPECIALIST.PRESS ROOM SUPERVISOR Work Phone: [facility] 09-05-2023 09:35-0500 Heart rate 68 /min [facility] 09-05-2023 09:35-0500 Respiratory rate 14 /min [facility] 09-05-2023 09:35-0500 SaO2% (BldA) [Mass fraction] 97 % [facility] 09-05-2023 09:09-0500 Body height 182.88 cm [facility] 09-05-2023 09:09-0500 Body mass index (BMI) [Ratio] 24.5 kg/m2 [facility] 09-05-2023 09:09-0500 Body temperature 97.9 [degF] [facility] 09-05-2023 09:09-0500 Body weight 82 kg [facility] 09-05-2023 09:09-0500 Diastolic blood pressure 69 mm[Hg] [facility] 09-05-2023 09:09-0500 Systolic blood pressure 133 mm[Hg] [facility] 12-06-2022 13:48-0400 Body weight 79.38 kg Brenda Santizo PRODUCT DESIGN SPECIALIST.ARMATURE STRAIGHTENER Work Phone: [facility] 12-06-2022 13:48-0400 Diastolic blood pressure 70 mm[Hg] Brenda Santizo PRODUCT DESIGN SPECIALIST.ARMATURE STRAIGHTENER Work Phone: [facility] 12-06-2022 13:48-0400 Heart rate 62 /min Brenda Santizo PRODUCT DESIGN SPECIALIST.ARMATURE STRAIGHTENER Work Phone: [facility] 12-06-2022 13:48-0400 Respiratory rate 16 /min Brenda Santizo PRODUCT DESIGN SPECIALIST.ARMATURE STRAIGHTENER Work Phone: [facility] 12-06-2022 13:48-0400 SaO2% (BldA) [Mass fraction] 97 % Brenda Santizo PRODUCT DESIGN SPECIALIST.ARMATURE STRAIGHTENER Work Phone: [facility] 12-06-2022 13:48-0400 Systolic blood pressure 124 mm[Hg] Brenda Santizo PRODUCT DESIGN SPECIALIST.ARMATURE STRAIGHTENER Work Phone: [facility] 06-13-2022 10:56-0400 Body height 182.9 cm Branden Hickman MD Work Phone: [facility] 06-13-2022 10:56-0400 Body weight 76.93 kg Branden Hickman MD Work Phone: [facility] 06-13-2022 10:56-0400 Diastolic blood pressure 74 mm[Hg] Branden Hickman MD Work Phone: [facility] 06-13-2022 10:56-0400 Heart rate 72 /min Branden Hickman MD Work Phone: [facility] 06-13-2022 10:56-0400 SaO2% (BldA) [Mass fraction] 98 % Branden Hickman MD Work Phone: [facility] 06-13-2022 10:56-0400 Systolic blood pressure 121 mm[Hg] Branden Hickman MD Work Phone: [facility] 05-03-2022 13:46-0400 Body height 182.9 cm Brenda Santizo PRODUCT DESIGN SPECIALIST.ARMATURE STRAIGHTENER Work Phone: [facility] 05-03-2022 13:46-0400 Body weight 76.66 kg Brenda Santizo PRODUCT DESIGN SPECIALIST.ARMATURE STRAIGHTENER Work Phone: [facility] 05-03-2022 13:46-0400 Diastolic blood pressure 80 mm[Hg] Brenda Santizo PRODUCT DESIGN SPECIALIST.ARMATURE STRAIGHTENER Work Phone: [facility] 05-03-2022 13:46-0400 Heart rate 73 /min Brenda Santizo PRODUCT DESIGN SPECIALIST.ARMATURE STRAIGHTENER Work Phone: [facility] 05-03-2022 13:46-0400 Respiratory rate 16 /min Brenda Santizo PRODUCT DESIGN SPECIALIST.ARMATURE STRAIGHTENER Work Phone: [facility] 05-03-2022 13:46-0400 SaO2% (BldA) [Mass fraction] 98 % Brenda Santizo PRODUCT DESIGN SPECIALIST.ARMATURE STRAIGHTENER Work Phone: [facility] 05-03-2022 13:46-0400 Systolic blood pressure 118 mm[Hg] Brenda Santizo PRODUCT DESIGN SPECIALIST.ARMATURE STRAIGHTENER Work Phone: [facility] 08-13-2021 07:59-0500 Body temperature 97.5 [degF] Dr. Amilcar Tamayo Work Phone: [facility] Work Phone: 08-13-2021 07:59-0500 Diastolic blood pressure 60 mm[Hg] Dr. Amilcar Tamayo Work Phone: [facility] Work Phone: 08-13-2021 07:59-0500 Heart rate 86 /min Dr. Amilcar Tamayo Work Phone: [facility] Work Phone: 08-13-2021 07:59-0500 Respiratory rate 15 /min Dr. Amilcar Tamayo Work Phone: [facility] Work Phone: 08-13-2021 07:59-0500 SaO2% (BldA) [Mass fraction] 96 % Dr. Amilcar Tamayo Work Phone: [facility] Work Phone: 08-13-2021 07:59-0500 Systolic blood pressure 104 mm[Hg] Dr. Amilcar Tamayo Work Phone: [facility] Work Phone: 07-19-2021 12:41-0500 Body height 182.[address] Amilcar Tamayo Work Phone: [facility] Work Phone: 07-19-2021 12:41-0500 Body weight 78.[address] Amilcar Tamayo Work Phone: [facility] Work Phone: 07-19-2021 12:41-0500 Diastolic blood pressure 64 mm[Hg] Dr. Amilcar Tamayo Work Phone: [facility] Work Phone: 07-19-2021 12:41-0500 Heart rate 68 /min Dr. Amilcar Tamayo Work Phone: [facility] Work Phone: 07-19-2021 12:41-0500 Respiratory rate 18 /min Dr. Amilcar Tamayo Work Phone: [facility] Work Phone: 07-19-2021 12:41-0500 Systolic blood pressure 130 mm[Hg] Dr. Amilcar Tamayo Work Phone: [facility] Work Phone: 06-22-2020 12:03-0500 Body mass index (BMI) [Ratio] 23 kg/m2 Dr. Amilcar Tamayo Work Phone: [facility] Work Phone: 05-01-2017 13:34-0400 BMI (Body Mass Index) 26.04 kg/m2 Rosalia Pittman [facility] Work Phone: 05-01-2017 13:34-0400 BP Diastolic 62 mm[Hg] [facility] Work Phone: 05-01-2017 13:34-0400 BP Systolic 112 mm[Hg] Rosalia Pittman [facility] Work Phone: 05-01-2017 13:34-0400 Height 182.88 cm Rosalia Pittman [facility] Work Phone: 05-01-2017 13:34-0400 Pulse (Heart Rate) 64 /min [facility] Work Phone: 05-01-2017 13:34-0400 Respiratory Rate 16 /min Rosalia Pittman [facility] Work Phone: 05-01-2017 13:34-0400 Weight 87.09 kg Rosalia Pittman [facility] Work Phone: 11-07-2016 13:06-0400 BMI (Body Mass Index) 26.04 kg/m2 Lev Latif MD [facility] Work Phone: 11-07-2016 13:06-0400 BP Diastolic 72 mm[Hg] Lev Latif MD [facility] Work Phone: 11-07-2016 13:06-0400 BP Systolic 140 mm[Hg] Lev Ltaif MD [facility] Work Phone: 11-07-2016 13:06-0400 Pulse (Heart Rate) 68 /min [facility] Work Phone: 11-07-2016 13:06-0400 Respiratory Rate 16 /min Lev Latif MD [facility] Work Phone: 11-07-2016 13:06-0400 Weight 87.09 kg Lev Latif MD [facility] Work Phone: 04-25-2016 13:25-0400 BSA (Body Surface Area) 2.08 m2 Lev Latif MD [facility] Work Phone: 10-20-2014 13:10-0400 Heart rate 70 /min Rosalia Pittman [facility] Work Phone: 05-14-2012 13:27-0400 Heart rate 443 ms Rosalia Pittman [facility] Work Phone: 11-07-2011 13:49-0400 Height 182.88 cm Lev Latif MD [facility] Work Phone: Encounters Encounter Date Encounter Type Care Provider Facility Start: 04-02-2025 End: 04-02-2025 ambulatory Amilcar Tamayo MD Work Phone: [facility] Comment on above: [facility] Coordin at[facility]- Other (Chart Review ) Start: 04-02-2025 End: 04-02-2025 E-mail encounter from caregiver Amilcar Tamayo MD Work Phone: [facility] Start: 01-20-2025 End: 01-20-2025 ambulatory AMILCAR TAMAYO Facility:[facility] Start: 01-20-2025 End: 01-20-2025 Office outpatient visit 25 minutes Amilcar Tamayo MD Work Phone: [facility] [place] Comment on above: Nausea (Primary Dx); Gastroesophageal reflux disease without esophagitis; Essential hypertension; History of bleeding ulcers; Idiopathic pulmonary fibrosis (HCC); Encounter for long-term current use of medication; Encounter for immunization; Chronic idiopathic thrombocytopenia (HCC) Start: 01-20-2025 End: 01-20-2025 ambulatory [facility] Facility:[facility] Start: 01-13-2025 End: 01-13-2025 Patient encounter procedure Pulm Lab [facility] Work Phone: [facility]M [facility] Start: 01-13-2025 End: 01-13-2025 ambulatory Pulm Lab [facility] Work Phone: [facility] Comment on above: Spirometry Start: 12-31-2024 End: 12-31-2024 ambulatory [facility] Facility:[facility] Start: 12-16-2024 End: 12-17-2024 Refill Homa Coleman APRN.JULIA Work Phone: Pulmonary Medicine Comment on above: Refill Request Start: 10-30-2024 End: 12-30-2024 Follow-up encounter Homa Coleman APRN.JULIA Work Phone: Pulmonary Medicine Start: 10-29-2024 End: 10-29-2024 ambulatory [facility] Facility:[facility] Start: 09-17-2024 End: 09-17-2024 Refill Talib Jung APRN.PRESS ROOM SUPERVISOR Work Phone: [facility] [place] Comment on above: Refill Request Start: 08-28-2024 End: 08-28-[address] [facility] Facility:[facility] Start: 08-28-2024 End: 08-28-2024 Office outpatient visit 15 minutes Homa Coleman APRN.PRESS ROOM SUPERVISOR Work Phone: Pulmonary Medicine Comment on above: IPF (idiopathic pulm onary fibrosis) (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 (Primary Dx); S/P CABG (coronary artery bypass graft); S/P drug eluting coronary stent placement; Essential hypertension; Mixed hyperlipidemia; Family history of aortic aneurysm Start: 07-08-2024 End: 07-08-2024 ambulatory [facility] Facility:[facility] Start: 07-05-2024 End: 07-05-2024 Orders Only Branden Hickman MD Work Phone: Cardiology Comment on above: 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 (Primary Dx); S/P CABG (coronary artery bypass graft); Essential hypertension; Family history of aortic aneurysm Start: 07-01-2024 End: 07-01-2024 Patient encounter procedure Talib Jung APRN.PRESS ROOM SUPERVISOR Work Phone: [facility] [place] Comment on above: Idiopathic pulmonary fibrosis (HCC) (Primary Dx); 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; Essential hypertension; Mixed hyperlipidemia; Chronic idiopathic thrombocytopenia (HCC); Screening for depression; Encounter for screening examination for other mental health and behavioral disorders; Encounter for immunization Start: 07-01-2024 End: 07-01-2024 ambulatory [facility] Facility:[facility] Start: 06-11-2024 End: 06-11-2024 Orders Only Homa Coleman APRN.PRESS ROOM SUPERVISOR Work Phone: Pulmonary Medicine Comment on above: IPF (idiopathic pulm onary fibrosis) (HCC) Start: 05-29-2024 End: 05-29-[address] [facility] Facility:[facility] Start: 05-28-2024 End: 05-28-[address] [facility] Facility:[facility] Start: 05-28-2024 End: 05-28-2024 Office outpatient visit 25 minutes Homa Coleman APRN.JULIA Work Phone: Pulmonary Medicine Comment on above: IPF (idiopathic pulm onary fibrosis) (HCC) (Primary Dx); Lung nodule Start: 05-16-2024 End: 05-16-2024 ambulatory [facility] Work Phone: [facility] Comment on above: Spirometry Start: 05-16-2024 End: 05-16-2024 Patient encounter procedure [facility] Work Phone: [facility] Start: 05-16-2024 End: 05-16-2024 Subsequent hospital visit by physician [facility] ([facility]) Work Phone: Cat Scan Comment on above: Interstitial pulmona ry disease (HCC) [J84.9] Start: 04-30-2024 End: 04-30-2024 Patient encounter procedure [facility] Work Phone: [facility] Comment on above: Interstitial pulmona ry disease (HCC) (Primary Dx); Former smoker Start: 04-30-2024 End: 04-30-2024 ambulatory [facility] Work Phone: [facility] Comment on above: Spirometry Start: 04-30-2024 End: 04-30-2024 Subsequent hospital visit by physician Krystle [facility] Work Phone: Radiology Comment on above: Chronic obstructive pulmonary disease, unspecified COPD type (HCC) [J44.9] Start: 04-25-2024 End: 04-25-2024 Orders Only Branden Hickman MD Work Phone: Cardiology Comment on above: SOB (shortness of br eath) (Primary Dx) Start: 01-11-2024 End: 01-11-2024 [facility] Work Phone: [facility] Comment on above: Spirometry Start: 01-11-2024 End: 01-11-2024 Patient encounter procedure [facility] Work Phone: [facility] Start: 01-09-2024 End: 01-09-2024 Subsequent hospital visit by physician Krystle [facility] Work Phone: Radiology Comment on above: Chronic obstructive pulmonary disease, unspecified COPD type (HCC) [J44.9] Start: 01-09-2024 End: 01-09-2024 Patient encounter procedure Talib Jung APRN.CNP Work Phone: [facility] [place] Comment on above: Chronic obstructive pulmonary disease, unspecified COPD type (HCC) (Primary Dx); Essential hypertension; 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; Mixed hyperlipidemia Start: 10-12-2023 End: 10-12-2023 ambulatory Amilcar D [place] Facility:[facility] Start: 09-14-2023 End: 09-14-2023 ambulatory Amilcar D [place] Facility:[facility] Start: 09-07-2023 End: 09-07-2023 ambulatory Amilcar D [place] Facility:[facility] Start: 09-05-2023 End: 09-05-2023 Emergency department patient visit [facility] Facility:[facility] Start: 09-05-2023 End: 09-05-2023 Emergency department patient visit [facility] Work Phone: Start: 07-11-2023 End: 07-11-2023 Subsequent hospital visit by physician [facility] Comment on above: 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 [I25.10] Start: 06-12-2023 Telephone encounter Branden silva MD Work Phone: Cardiology Comment on above: Nm Pet Request Medication Authoriza tion Start: 04-18-2023 End: 04-18-2023 ambulatory Aimlcar D [facility] Facility:[facility] Start: 12-06-2022 End: 12-06-2022 Office outpatient visit 15 minutes Brenda Santizo APRN.ARMATURE STRAIGHTENER Work Phone: [facility] [place] Comment on above: S/P CABG (coronary a rtery bypass graft) (Primary Dx); Chronic idiopathic thrombocytopenia (HCC); Encounter for immunization; Mixed hyperlipidemia; Essential hypertension; Peptic ulcer; S/P drug eluting coronary stent placement Start: 11-23-2022 Orders Only Branden noel MD Work Phone: Cardiology Comment on above: 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 (Primary Dx) Start: 07-01-2022 ambulatory Branden noel MD Work Phone: Cardiology Comment on above: Your ultrasound and echocardiogram Start: 07-01-2022 E-mail encounter fro m caregiver Branden Hickman MD Work Phone: [facility] Start: 06-20-2022 End: 06-20-2022 Subsequent hospital visit by physician [facility] Work Phone: Radiology Comment on above: Family history of ab dominal aortic aneurysm (AAA) [Z82.49] Start: 06-13-2022 End: 06-13-2022 Patient encounter procedure Branden Hickman MD Work Phone: Cardiology Comment on above: 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 (Primary Dx); Mixed hyperlipidemia; Essential hypertension; S/P CABG (coronary artery bypass graft); S/P drug eluting coronary stent placement; Family history of aortic aneurysm Start: 05-03-2022 End: 05-03-2022 Patient encounter procedure Brenda Santizo APRN.ARMATURE STRAIGHTENER Work Phone: [facility] [place] Comment on above: Routine medical exam (Primary Dx); Special screening examination for viral disease; Need for shingles vaccine; Encounter for immunization; Chronic idiopathic thrombocytopenia (HCC); Other hyperlipidemia; Essential hypertension; S/P CABG (coronary artery bypass graft); S/P drug eluting coronary stent placement; Basal cell carcinoma (BCC), unspecified site; Family history of abdominal aortic aneurysm (AAA); Pure hypercholesterolemia; Peptic ulcer; 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 Malena Tamayo Work Phone: [facility] Start: 10-26-2021 End: 10-26-[address] Amilcar Tamayo Work Phone: [facility] Start: 08-13-2021 End: 08-13-[address] Amilcar Tamayo Work Phone: [facility] Start: 07-19-2021 End: 07-19-[address] Amilcar Tamayo Work Phone: [facility] Start: 02-28-2018 End: 02-28-2018 Patient encounter [facility] Procedures Date Procedure Procedure Detail Performing Clinician Start: 01-13-2025 Brncdilat rspse spmtry pre&post-brncdilat admn Homa Coleman APRN.PRESS ROOM SUPERVISOR Work Phone: Start: 07-01-2024 [employer] COVID-19 VACCINE AGE 12+ YR (COMIRNATY) Talib Jung APRN.PRESS ROOM SUPERVISOR Work Phone: Start: 07-01-2024 Adult depression screening assessment Talib Jung APRN.PRESS ROOM SUPERVISOR Work Phone: Start: 05-16-2024 Noninvasive ear/pulse oximetry multiple deter Millie Chester MD Work Phone: Start: 04-30-2024 Brncdilat rspse spmtry pre&post-brncdilat admn Millie Chester MD Work Phone: Start: 04-30-2024 Radiologic exam chest 2 views Millie Chester MD Work Phone: Start: 01-11-2024 Brncdilat rspse spmtry pre&post-brncdilat admn Talib Jung APRN.PRESS ROOM SUPERVISOR Work Phone: Start: 01-09-2024 Radiologic exam chest 2 views Talib Jung APRN.PRESS ROOM SUPERVISOR Work Phone: Start: 09-05-2023 CT of head without contrast Start: 09-05-2023 Plain x-ray of wrist Start: 07-11-2023 Myocrd img pet prfuj men's custom hair piece consultant std rst&strs cncrnt ct Branden Hickman MD Work Phone: Start: 06-20-2022 Us abdominal aorta real time screen study aaa Brenda Santizo APRN.ARMATURE STRAIGHTENER Work Phone: Start: 05-03-2022 INFLUENZA SEASONAL QUADRIVALENT HIGH DOSE AGE 65+ Brenda Santizo PRODUCT DESIGN SPECIALIST.ARMATURE STRAIGHTENER Work Phone: Start: 05-03-2022 [employer] COVID-19 BIVALENT BOOSTER VACCINE, AGE 12+ YR Brenda Santizo PRODUCT DESIGN SPECIALIST.ARMATURE STRAIGHTENER Work Phone: Start: 05-03-2022 Adult depression screening assessment Brenda Santizo APRN.ARMATURE STRAIGHTENER Work Phone: Start: 10-26-2021 Radionuclide imaging of [...] grafting Postsurgical aortocoronary bypass status Talib Jung PRODUCT DESIGN SPECIALIST.PRESS ROOM SUPERVISOR Work Phone: Start: 08-14-1985 History of coronary artery bypass grafting Aortocoronary bypass status Dr. Amilcar Tamayo Work Phone: History of coronary artery bypass grafting S/P CABG (coronary artery bypass graft) Branden Hickman MD Work Phone: History of coronary artery bypass grafting S/P CABG (coronary artery bypass graft) Brenda Santizo PRODUCT DESIGN SPECIALIST.ARMATURE STRAIGHTENER Work Phone: History of coronary artery bypass grafting S/P CABG (coronary artery bypass graft) Branden Hickman MD Work Phone: History of coronary artery bypass grafting S/P CABG (coronary artery bypass graft) Brenda Santizo APRN.ARMATURE STRAIGHTENER Work Phone: History of coronary artery bypass [...] drug eluting coronary stent placement Brenda Santizo APRN.ARMATURE STRAIGHTENER Work Phone: History of placement of stent for coronary artery disease S/P drug eluting coronary stent placement Branden Hickman MD Work Phone: History of placement of stent for coronary artery disease S/P drug eluting coronary stent placement Brenda Santizo APRN.ARMATURE STRAIGHTENER Work Phone: History of placement of stent for coronary artery disease S/P drug eluting coronary stent placement Branden Hickman MD Work Phone: Plan of Treatment Date Care Activity Detail Author Start: 12-06-2032 Urine microalbumin profile [facility] Start: 01-14-2028 Diabetes Screening Diabetes Screenin g [facility] Start: 10-30-2027 Diabetes Screening Diabetes Screenin g [facility] Start: 05-29-2027 Diabetes Screening Diabetes Screenin g [facility] Start: 06-12-2026 Diabetes Screening Diabetes Screenin g [facility] Start: 01-20-2026 Covid-19 Vaccine ( season) Covid-19 Vaccine () [facility] Comment on above: Postponed from 12/29 (Declined at this time) Start: 01-20-2026 RSV Vaccine (1 - 1-d ose 75+ series) RSV Vaccine (1 - 1-dose 75+ series) [facility] Comment on above: Postponed from 09/03 (Declined at this time) Start: 01-20-2026 End: 01-20-2026 Patient encounter procedure 01/20/2026 9:20 AM EDT Office Visit [facility] [place] [address] [place] [address] Amilcar Tamayo MD [address] [place] [address] 6 month f/u [facility] Comment on above: 6 month f/u Start: 08-18-2025 End: 08-18-2025 Patient encounter procedure 08/18/2025 10:00 AM EST Office Visit [facility] [place] [address] [place] [address] Amilcar Tamayo MD [address] [place] [address] [facility]ic[facility] [place] Comment on above: [facility]Medicare Start: 07-22-2025 End: 07-22-2025 Patient encounter procedure 07/22/2025 1:15 PM EST Office Visit Cardiology [address] [id number] Branden Hickman MD [address] [facility] [address] [place] [address] Dx 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 Cardiology Comment on above: Dx Atherosclerosis o f andreafski coronary artery of andreafski heart without angina pectoris Start: 07-22-2025 End: 07-22-2025 ambulatory 07/22/2025 12:30 PM EST Results Only [facility] [address] [id number] Dx 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 Expected: 07/08/2025, Expires: 10/07/2025 [facility] Comment on above: Expected: 07/08/2025 , Expires: 10/07/2025 Start: 07-01-2025 Annual PCP Team Database Security Expert genesis Disease Visit Annual PCP Team Chronic Disease Visit [facility] Start: 07-01-2025 Anxiety Screening Anxiety Screening [facility] Start: 07-01-2025 Depression Screening Depression Scre ening [facility] Start: 06-13-2025 DIABETES SCREEN DIABETES SCREEN [facility] Start: 05-29-2025 Hepatitis B surface antibody level LDL Cholesterol [facility] Start: 05-29-2025 End: 05-29-2025 Patient encounter procedure Cat Scan Comment on above: Lung nodule [R91.1] 5 month f/u-review C T Start: 05-28-2025 BP Controlled (<130/80) BP Controlle d (<130/80) [facility] Start: 05-28-2025 End: 06-27-2025 CT Chest WO contrast CT CHEST WO IVCON Radiology Routine Lung nodule Expected: 05/28/2025 (Approximate), Expires: 06/27/2025 [facility] Comment on above: Expected: 05/28/2025 (Approximate), Expires: 06/27/2025 Start: 04-14-2025 Influenza vaccination Influenza Vacc ine (#1) [facility] Start: 01-20-2025 End: 01-20-2025 Patient encounter procedure 01/20/2025 9:20 AM EDT Office Visit [facility] [place] [address] [place] [id number] Amilcar Tamayo MD [address] [place] [address] 6 month follow up [facility] Comment on above: 6 month follow up Start: 01-08-2025 Annual PCP Team Database Security Expert genesis Disease Visit Annual PCP Team Chronic Disease Visit [facility] Start: 01-08-2025 BP Controlled (<130/80) BP Controlle d (<130/80) [facility] Start: 12-31-2024 End: 12-31-2024 Patient encounter procedure Pulmonary Medicine Comment on above: 4m f/up Start: 12-29-2024 Covid-19 Vaccine () Covid-19 Vaccine () [facility] Start: 09-11-2024 End: 12-11-2024 Basic metabolic 2000 panel - Serum or Plasma BASIC METABOLIC PANEL Lab Routine IPF (idiopathic pulmonary fibrosis) (HCC) Expected: 09/11/2024 (Approximate), Expires: 12/11/2024 [facility] Comment on above: Expected: 09/11/2024 (Approximate), Expires: 12/11/2024 Start: 08-28-2024 End: 11-27-2024 [facility] Lab Routine Allergic rhinitis, unspecified seasonality, unspecified trigger Expected: 08/28/2024, Expires: 11/27/[address] [facility] Work Phone: Comment on above: Expected: 08/28/2024 , Expires: 11/27/2024 Start: 08-28-2024 End: 11-27-2024 IgE [Units/volume] in Serum or Plasma IMMUNOGLOBULIN E Lab Routine Allergic rhinitis, unspecified seasonality, unspecified trigger Expected: 08/28/2024, Expires: 11/27/2024 [facility] Comment on above: Expected: 08/28/2024 , Expires: 11/27/2024 Start: 08-28-2024 End: 08-28-2024 Patient encounter procedure 08/28/2024 9:30 AM EST Office Visit Pulmonary Medicine [address] [place] [address] Homa Coleman APRN.PRESS ROOM SUPERVISOR [address] [place] [address] 3 month f/u Pulmonary Medicine Comment on above: 3 month f/u Start: 08-14-2024 Advance Directive Discussion Advance Directive Discussion [facility] Start: 07-10-2024 Annual PCP Team Database Security Expert genesis Disease Visit Annual PCP Team Chronic Disease Visit [facility] Start: 07-10-2024 BP Controlled (<130/80) BP Controlle d (<130/80) [facility] Start: 07-10-2024 RSV Vaccine (1 - 1-d ose 60+ series) RSV Vaccine (1 - 1-dose 60+ series) [facility] Comment on above: Postponed from 09/03 (Declined at this time) Start: 07-10-2024 RSV Vaccine (1 - 1-d ose 75+ series) RSV Vaccine (1 - 1-dose 75+ series) [facility] Comment on above: Postponed from 09/03 (Declined at this time) Start: 07-10-2024 Shingrix Vaccine (2 of 3) Leon grix Vaccine (2 of 3) [facility] Comment on above: Postponed from 02/04 (Declined at this time) Start: 07-08-2024 End: 07-08-2024 Patient encounter procedure Cardiology Comment on above: 1 YR F/U Dx: 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 [I25.10 (ICD-10-CM)] Start: 07-08-2024 End: 07-08-2024 ambulatory 07/08/2024 1:30 PM EST Results Only Cardiology [address] [place] [address] 1 YR F/U Cardiology Comment on above: 1 YR F/U Start: 07-01-2024 End: 07-01-2024 Patient encounter procedure 07/01/2024 11:20 AM EST Office Visit [facility] Medicine [place] [address] [place], [place] [phone] Talib Jung APRN.PRESS ROOM SUPERVISOR [address] [place] [address] 6 month follow up [facility] [place] Comment on above: 6 month follow up Start: 06-12-2024 Hepatitis B surface antibody level LDL Cholesterol [facility] Start: 06-12-2024 End: 06-12-2024 Orders Only 06/12/2024 Orders Only Cardiology [address] [place] [address] Branden Hickman MD [address] [facility] [address] [place] [address] 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 Work Phone: Comment on above: Expected: 06/11/2024 , Expires: 09/10/2024 Start: 05-28-2024 End: 08-27-2024 WILLIAM BY IFA SCREEN WILLIAM BY IFA SCREEN Lab Routine IPF (idiopathic pulmonary fibrosis) (HCC) Expected: 05/28/2024, Expires: 08/27/[address] [facility] Work Phone: Comment on above: Expected: 05/28/2024 , Expires: 08/27/2024 Start: 05-28-2024 End: 08-27-2024 ANTI NEUTRO CYTO AB ANTI NEUTRO CYTO AB Lab Routine IPF (idiopathic pulmonary fibrosis) (HCC) Expected: 05/28/2024, Expires: 08/27/2024 [facility] Comment on above: Expected: 05/28/2024 , Expires: 08/27/2024 Start: 05-28-2024 End: 08-27-2024 Basic metabolic 2000 panel - Serum or Plasma BASIC METABOLIC PANEL Lab Routine IPF (idiopathic pulmonary fibrosis) (HCC) Expected: 05/28/2024, Expires: 08/27/2024 [facility] Comment on above: Expected: 05/28/2024 , Expires: 08/27/2024 Start: 05-28-2024 End: 08-27-2024 Cyclic citrullinated peptide IgG Ab [Units/volume] in Serum or Plasma CCP ANTIBODY IGG Lab Routine IPF (idiopathic pulmonary fibrosis) (HCC) Expected: 05/28/2024, Expires: 08/27/2024 [facility] Comment on above: Expected: 05/28/2024 , Expires: 08/27/2024 Start: 05-28-2024 End: 08-27-2024 DNA ANTIBODY DS BLD DNA ANTIBODY DS BLD Lab Routine IPF (idiopathic pulmonary fibrosis) (HCC) Expected: 05/28/2024, Expires: 08/27/2024 [facility] Comment on above: Expected: 05/28/2024 , Expires: 08/27/2024 Start: 05-28-2024 End: 08-27-2024 Extractable nuclear Ab panel - Serum ANTI HARITHA ID Lab Routine IPF (idiopathic pulmonary fibrosis) (HCC) Expected: 05/28/2024, Expires: 08/27/2024 [facility] Comment on above: Expected: 05/28/2024 , Expires: 08/27/2024 Start: 05-28-2024 End: 08-27-2024 Hepatic function 2000 panel - Serum or Plasma HEPATIC FUNCTION PNL Lab Routine IPF (idiopathic pulmonary fibrosis) (HCC) Expected: 05/28/2024, Expires: 08/27/2024 [facility] Comment on above: Expected: 05/28/2024 , Expires: 08/27/2024 Start: 05-28-2024 End: 08-27-2024 POLYMYOSITIS AND DERMATOMYOSITIS PANEL POLYMYOSITIS AND DERMATOMYOSITIS PANEL Lab Routine IPF (idiopathic pulmonary fibrosis) (HCC) Expected: 05/28/2024, Expires: 08/27/2024 [facility] Comment on above: Expected: 05/28/2024 , Expires: 08/27/2024 Start: 05-28-2024 End: 08-27-2024 Rheumatoid factor [Units/volume] in Serum or Plasma RHEUMATOID FACTOR Lab Routine IPF (idiopathic pulmonary fibrosis) (HCC) Expected: 05/28/2024, Expires: 08/27/2024 [facility] Comment on above: Expected: 05/28/2024 , Expires: 08/27/2024 Start: 05-28-2024 End: 08-27-2024 RNA POLYMERASE III AB RNA POLYMERASE III AB Lab Routine IPF (idiopathic pulmonary fibrosis) (HCC) Expected: 05/28/2024, Expires: 08/27/2024 [facility] Comment on above: Expected: 05/28/2024 , Expires: 08/27/2024 Start: 05-28-2024 End: 05-28-2024 Patient encounter procedure 05/28/2024 10:00 AM EDT Office Visit Pulmonary Medicine [address] [place] [address] Homa Coleman APRN.PRESS ROOM SUPERVISOR [address] [place] [address] testing follow up Pulmonary Medicine Comment on above: testing follow up Start: 05-16-2024 End: 05-16-2024 Patient encounter procedure 05/16/2024 10:20 AM EDT Appointment Cat Scan [address] [place] [address] Interstitial pulmonary disease (HCC) [J84.9] Cat Scan Comment on above: Interstitial pulmona ry disease (HCC) [J84.9] Start: 05-16-2024 End: 05-16-2024 ambulatory 05/16/2024 9:30 AM EDT Procedure PULM LAB [facility] [address] [place] [address] Wstr, Pulm Lab [facility] [address] [place] [address] Interstitial pulmonary disease (HCC) [J84.9] [facility] Comment on above: Interstitial pulmona ry disease (HCC) [J84.9] Start: 04-30-2024 End: 04-30-2024 ambulatory [facility] Comment on above: COPD Start: 04-30-2024 End: 04-30-2024 Patient encounter procedure Radiology Comment on above: COPD Start: 04-14-2024 Covid-19 Vaccine ( season) Covid-19 Vaccine ( season) [facility] Start: 04-14-2024 Covid-19 Vaccine ( season) Covid-19 Vaccine () [facility] Start: 04-14-2024 Influenza vaccination Influenza Vacc ine (#1) [facility] Start: 01-11-2024 End: 01-11-2024 ambulatory [facility] Comment on above: Chronic obstructive pulmonary disease, unspecified COPD type (HCC) [J44.9] Start: 12-07-2023 BP CONTROLLED (<130/80) BP CONTROLLE D (<130/80) [facility] Start: 11-08-2023 Covid-19 Vaccine () Covid-19 Vaccine () [facility] Start: 09-05-2023 [facility] Start: 08-14-2023 Behavioral Health Screening Behavioral Health Screening [facility] Start: 06-24-2023 DIABETES SCREEN DIABETES SCREEN [facility] Start: 06-13-2023 BP CONTROLLED (<130/80) BP CONTROLLE D (<130/80) [facility] Start: 06-13-2023 Hepatitis B surface antibody level LDL CHOLESTEROL [facility] Start: 06-12-2023 End: 08-12-2023 Comprehensive metabolic 2000 panel - Serum or Plasma COMP METABOLIC PANEL Lab Routine 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 Work Phone: Comment on above: Expected: 06/12/2023 , Expires: 08/12/2023 Start: 05-03-2023 Adult depression screening assessment DEPRESSION SCREENING [facility] Start: 05-03-2023 ANNUAL PCP TEAM EVENT CREW TECHNICIAN GENESIS DISEASE VISIT ANNUAL PCP TEAM CHRONIC DISEASE VISIT [facility] Start: 05-03-2023 BP CONTROLLED (<130/80) BP CONTROLLE D (<130/80) [facility] Start: 04-14-2023 Covid-19 Vaccine () Covid-19 Vaccine () [facility] Start: 04-14-2023 Influenza vaccination Influenza Vacc ine (#1) [facility] Start: 09-02-2022 COVID-19 VACCINE (4 - Booster for Pfizer series) COVID-19 VACCINE (4 - Booster for Pfizer series) [facility] Start: 08-14-2022 ADVANCE DIRECTIVE DISCUSSION ADVANCE DIRECTIVE DISCUSSION [facility] Start: 08-14-2022 DEPRESSION ASSESSMENT DEPRESSION ASS ESSMENT [facility] Start: 06-11-2022 BP CONTROLLED (<130/80) BP CONTROLLE D (<130/80) [facility] Start: 06-11-2022 Hepatitis B surface antibody level LDL CHOLESTEROL [facility] Start: 06-08-2022 Urine microalbumin profile DTAP,TDAP,TD (2 - Td or Tdap) [facility] Start: 05-03-2022 End: 07-03-2022 CBC W Auto Differential panel - Blood CBC + DIFF Lab Routine Essential hypertension Expected: 05/03/2022, Expires: 07/03/[address] [facility] Work Phone: Comment on above: Expected: 05/03/2022 , Expires: 07/03/2022 Start: 05-03-2022 End: 07-03-2022 Comprehensive metabolic 2000 panel - Serum or Plasma COMP METABOLIC PANEL Lab Routine Essential hypertension Expected: 05/03/2022, Expires: 07/03/[address] [facility] Work Phone: Comment on above: Expected: 05/03/2022 , Expires: 07/03/2022 Start: 05-03-2022 End: 07-03-2022 Hepatitis C virus Ab [Presence] in Serum HEP C AB IA W/CONF SCRN Lab Routine Special screening examination for viral disease Expected: 05/03/2022, Expires: 07/03/[address] [facility] Work Phone: Comment on above: Expected: 05/03/2022 , Expires: 07/03/2022 Start: 05-03-2022 End: 07-03-2022 Lipid 1996 panel - Serum or Plasma LIPID PANEL BASIC Lab Routine Other hyperlipidemia S/P CABG (coronary artery bypass graft) S/P drug eluting coronary stent placement Expected: 05/03/2022, Expires: 07/03/[address] [facility] Work Phone: Comment on above: Expected: 05/03/2022 , Expires: 07/03/2022 Start: 04-14-2022 Influenza vaccination INFLUENZA (Sea son Ended) [facility] Start: 01-13-2022 Adult depression screening assessment DEPRESSION SCREENING [facility] Start: 12-07-2021 End: 02-06-2022 Comprehensive metabolic 2000 panel - Serum or Plasma COMP METABOLIC PANEL Lab Routine S/P CABG (coronary artery bypass graft) Expected: 12/07/2021, Expires: 02/06/[address] [facility] Work Phone: Comment on above: Expected: 12/07/2021 , Expires: 02/06/2022 Start: 12-07-2021 End: 02-06-2022 LIPID PANEL BASIC LIPID PANEL BASIC Lab Routine S/P CABG (coronary artery bypass graft) Acute ischemic heart disease, unspecified (HCC) Expected: 12/07/2021, Expires: 02/06/[address] [facility] Work Phone: Comment on above: Expected: 12/07/2021 , Expires: 02/06/2022 Start: 08-14-2021 ADVANCE DIRECTIVE DISCUSSION ADVANCE DIRECTIVE DISCUSSION [facility] Start: 08-14-2021 DEPRESSION ASSESSMENT DEPRESSION ASS ESSMENT [facility] Start: 04-12-2021 COVID-19 VACCINE (3 - Booster for Pfizer series) COVID-19 VACCINE (3 - Booster for Pfizer series) [facility] Start: 07-31-2019 ANNUAL PCP TEAM EVENT CREW TECHNICIAN GENESIS DISEASE VISIT ANNUAL PCP TEAM CHRONIC DISEASE VISIT [facility] Start: 2018 RSV Vaccine (1 - 1-d ose 75+ series) RSV Vaccine (1 - 1-dose 75+ series) [facility] Start: 05-07-2018 End: 05-07-2018 Appointment Appointment [facility] Work Phone: Start: 11-06-2017 End: 11-06-2017 Appointment Appointment [facility] Work Phone: Start: 10-23-2017 End: 04-25-2017 *Hepatic Function Panel *Hepatic Function Panel [facility] Work Phone: Start: 10-23-2017 End: 04-25-2017 Lipid 1996 panel *Lipid Profile CC [facility]CP [facility] Work Phone: Start: 10-23-2017 End: 04-25-2017 *Hepatic Function Panel *Hepatic Function Panel [facility] Work Phone: Start: 10-23-2017 End: 04-25-2017 Lipid panel [AGGREGATE] *Lipid Profile CC PCP [facility] Work Phone: Start: 05-11-2017 End: 05-11-2017 Cardiac Referral Cardiac Referral [address], [address], [place], [address] [facility] Work Phone: Start: 05-03-2017 End: 04-24-2017 *Hepatic Function Panel *Hepatic Function Panel [facility] Work Phone: Start: 05-03-2017 End: 04-24-2017 Lipid 1996 panel *Lipid Profile CC PCP [facility] Work Phone: Start: 05-03-2017 End: 04-24-2017 *Hepatic Function Panel *Hepatic Function Panel [facility] Work Phone: Start: 05-03-2017 End: 04-24-2017 Lipid panel [AGGREGATE] *Lipid Profile CC PCP [facility] Work Phone: Start: 05-01-2017 End: 05-01-2017 Follow Up Appt 6 months Follow Up Appt 6 months [facility] Work Phone: Start: 05-01-2017 End: 05-01-2017 Nuclear stress test -exercise Nuclear stress test -exercise [facility] Work Phone: Start: 05-01-2017 End: 05-01-2017 PFM PFM [facility] Work Phone: Start: 05-01-2017 End: 05-01-2017 Appointment Appointment [facility] Work Phone: Start: 05-01-2017 End: 05-01-2017 Follow Up Appt 6 months Follow Up Appt 6 months [facility] Work Phone: Start: 05-01-2017 End: 05-01-2017 Nuclear stress test -exercise Nuclear stress test -exercise [facility] Work Phone: Start: 05-01-2017 End: 05-01-2017 PFM PFM [facility] Work Phone: Start: 11-07-2016 End: 11-07-2016 Follow Up Appt 6 months Follow Up Appt 6 months [facility] Work Phone: Start: 11-07-2016 End: 11-07-2016 MMM MMM [facility] Work Phone: Start: 11-07-2016 End: 11-07-2016 Follow Up Appt 6 months Follow Up Appt 6 months [facility] Work Phone: Start: 11-07-2016 End: 11-07-2016 MM MMM [facility] Work Phone: Start: 04-25-2016 End: 04-25-2016 *Hepatic Function Panel *Hepatic Function Panel [facility] Work Phone: Start: 04-25-2016 End: 04-25-2016 Follow Up Appt 6 months Follow Up Appt 6 months [facility] Work Phone: Start: 04-25-2016 End: 04-25-2016 Lipid 1996 panel *Lipid Profile CC [facility]CP [facility] Work Phone: Start: 04-25-2016 End: 04-25-2016 PFM PFM [facility] Work Phone: Start: 04-25-2016 End: 04-25-2016 *Hepatic Function Panel *Hepatic Function Panel [facility] Work Phone: Start: 04-25-2016 End: 04-25-2016 Follow Up Appt 6 months Follow Up Appt 6 months [facility] Work Phone: Start: 04-25-2016 End: 04-25-2016 Lipid panel [AGGREGATE] *Lipid Profile CC PCP [facility] Work Phone: Start: 04-25-2016 End: 04-25-2016 PFM PFM [facility] Work Phone: Start: 04-21-2016 End: 04-27-2016 *Hepatic Function Panel *Hepatic Function Panel [facility] Work Phone: Start: 04-21-2016 End: 04-27-2016 Lipid 1996 panel *Lipid Profile CC PCP [facility] Work Phone: Start: 04-21-2016 End: 04-27-2016 *Hepatic Function Panel *Hepatic Function Panel [facility] Work Phone: Start: 04-21-2016 End: 04-27-2016 Lipid panel [AGGREGATE] *Lipid Profile CC PCP [facility] Work Phone: Start: 11-09-2015 End: 11-10-2015 Follow Up Appt 6 months Follow Up Appt 6 months [facility] Work Phone: Start: 11-09-2015 End: 11-10-2015 PFM PFM [facility] Work Phone: Start: 11-09-2015 End: 11-10-2015 Follow Up Appt 6 months Follow Up Appt 6 months [facility] Work Phone: Start: 11-09-2015 End: 11-10-2015 PFM PFM [facility] Work Phone: Start: 10-13-2015 End: 10-27-2015 *Hepatic Function Panel *Hepatic Function Panel [facility] Work Phone: Start: 10-13-2015 End: 10-27-2015 Lipid 1996 panel *Lipid Profile CC PCP [facility] Work Phone: Start: 10-13-2015 End: 10-27-2015 *Hepatic Function Panel *Hepatic Function Panel [facility] Work Phone: Start: 10-13-2015 End: 10-27-2015 Lipid panel [AGGREGATE] *Lipid Profile CC PCP [facility] Phone: Start: 04-27-2015 End: 04-27-2015 Follow Up Appt 6 months Follow Up Appt 6 months [facility] Phone: Start: 04-27-2015 End: 05-27-2015 Nuclear stress test -exercise Nuclear stress test -exercise [facility] Phone: Start: 04-27-2015 End: 04-27-2015 PFM [facility] Phone: Start: 04-27-2015 End: 04-27-2015 Follow Up Appt 6 months Follow Up Appt 6 months [facility] Phone: Start: 04-27-2015 End: 05-27-2015 Nuclear stress test -exercise Nuclear stress test -exercise [facility] Phone: Start: 04-27-2015 End: 04-27-2015 PFM PF [facility] Work Phone: Start: 11-06-2014 End: 11-06-2014 Cardiac Referral Cardiac Referral [address], [place], [address] [facility] Phone: Start: 11-06-2014 End: 11-06-2014 Cardiac Referral Cardiac Referral [address], [place], [address] [facility] Phone: Start: 10-20-2014 End: 10-20-2014 Chest x-ray X-Ray, Chest, PA & Lateral [facility] Phone: Start: 10-20-2014 End: 10-20-2014 Ecg routine ecg w/least 12 lds w/i&r EKG (In office) [employer] Phone: Start: 10-20-2014 End: 10-20-2014 Follow Up Appt 6 months Follow Up Appt 6 months [facility] Work Phone: Start: 10-20-2014 End: 10-24-2014 Nuclear stress test -exercise Nuclear stress test -exercise [facility] Work Phone: Start: 10-20-2014 End: 10-20-2014 PFM PFM [facility] Work Phone: Start: 10-20-2014 End: 10-20-2014 Chest x-ray X-Ray, Chest, PA & Lateral [facility] Work Phone: Start: 10-20-2014 End: 10-20-2014 Electrocardiogram, complete EKG (In office) [facility] Work Phone: Start: 10-20-2014 End: 10-20-2014 Follow Up Appt 6 months Follow Up Appt 6 months [facility] Work Phone: Start: 10-20-2014 End: 10-24-2014 Nuclear stress test -exercise Nuclear stress test -exercise [facility] Work Phone: Start: 10-20-2014 End: 10-20-2014 PFM PF [facility] Work Phone: Start: 05-19-2014 End: 10-20-2014 *Hepatic Function Panel *Hepatic Function Panel [facility] Work Phone: Start: 05-19-2014 End: 10-08-2014 Follow Up Appt 6 months Follow Up Appt 6 months [facility] Work Phone: Start: 05-19-2014 End: 10-20-2014 Lipid 1996 panel *Lipid Profile CC PCP [facility] Work Phone: Start: 05-19-2014 End: 10-08-2014 PFM PFM [facility] Work Phone: Start: 05-19-2014 End: 10-20-2014 *Hepatic Function Panel *Hepatic Function Panel [facility] Work Phone: Start: 05-19-2014 End: 10-08-2014 Follow Up Appt 6 months Follow Up Appt 6 months [facility] Work Phone: Start: 05-19-2014 End: 10-20-2014 Lipid panel [AGGREGATE] *Lipid Profile CC PCP [facility] Work Phone: Start: 05-19-2014 End: [...] 6 months Follow Up Appt 6 months [facility] Work Phone: Start: 05-27-2013 End: 05-27-2013 PFM PFM [facility] Work Phone: Start: 05-27-2013 End: 05-27-2013 Follow Up Appt 6 months Follow Up Appt 6 months [facility] Work Phone: Start: 05-27-2013 End: 05-27-2013 PFM PFM [facility] Work Phone: Start: 12-10-2012 End: [...] Follow Up Appt 6 months Heather [facility] Work Phone: Start: 12-10-2012 End: 12-10-2012 Nuclear stress test -exercise Nuclear stress test -exercise [facility] Work Phone: Start: 12-10-2012 End: 12-10-2012 PFM PFM [facility] Work Phone: Start: 10-12-2012 End: 05-07-2013 *Hepatic Function Panel *Hepatic Function Panel [facility] Work Phone: Start: 10-12-2012 End: 05-07-2013 Lipid 1996 panel *Lipid Profile [facility] Work Phone: Start: 10-12-2012 End: 05-07-2013 *Hepatic Function Panel *Hepatic Function Panel [facility] Work Phone: Start: 10-12-2012 End: 05-07-2013 Lipid panel [AGGREGATE] *Lipid Profile [facility] Work Phone: Start: 05-14-2012 End: 05-14-2012 Ecg routine ecg w/least 12 lds w/i&r EKG (In office) [facility] Work Phone: Start: 05-14-2012 End: 11-23-2012 Follow Up Appt 6 months Follow Up Appt 6 months [facility] Work Phone: Start: 05-14-2012 End: 05-14-2012 Nuclear stress test -exercise Nuclear stress test -exercise [facility] Work Phone: Start: 05-14-2012 End: 05-14-2012 Electrocardiogram, complete EKG (In office) [facility] Work Phone: Start: 05-14-2012 End: 11-23-2012 Follow Up Appt 6 months Follow Up Appt 6 months [facility] Work Phone: Start: 05-14-2012 End: 05-14-2012 Nuclear stress test -exercise Nuclear stress test -exercise [facility] Work Phone: Start: 04-20-2012 End: 05-01-2012 *Hepatic Function Panel *Hepatic Function Panel [facility] Work Phone: Start: 04-20-2012 End: 05-01-2012 Lipid 1996 panel *Lipid Profile [facility] Work Phone: Start: 04-20-2012 End: 05-01-2012 *Hepatic Function Panel *Hepatic Function Panel [facility] Work Phone: Start: 04-20-2012 End: 05-01-2012 Lipid panel [AGGREGATE] *Lipid Profile [facility] Work Phone: Start: 11-07-2011 End: 11-07-2011 Follow Up Appt 6 months Follow Up Appt 6 months [facility] Work Phone: Start: 11-07-2011 End: 11-07-2011 Follow Up Appt 6 months Follow Up Appt 6 months [facility] Work Phone: Start: 08-14-2008 Medicare Annual Well ness Visit Medicare Annual Wellness Visit [facility] Start: 02-05-2008 SHINGRIX VACCINE (2 of 3) LEON GRIX VACCINE (2 of 3) [facility] Start: 2003 RSV Vaccine (1 - 1-d ose 60+ series) RSV Vaccine (1 - 1-dose 60+ series) [facility] Start: 1961 Anxiety Screening Anxiety Screening [facility] Start: 1961 [facility] HE[facility]IS C SCREENING HEPATITIS C [facility] End: 05-30-2025 CT Chest WO contrast CT CHEST WO IVCON Radiology Routine Interstitial pulmonary disease (HCC) 1 Occurrences starting 04/30/2024 until 05/30/[address] [facility] Work Phone: Comment on above: 1 Occurrences starti ng 04/30/2024 until 05/30/2025 CT Chest WO contrast CT CHEST WO IVCON Radiology Routine Interstitial pulmonary disease (HCC) 05/16/2024 10:15 AM EDT [facility] Work Phone: End: 04-25-2025 ECG COMPLETE ECG COMPLETE ECG Routine SOB (shortness of breath) 1 Occurrences starting 04/25/2024 until 04/25/[address] 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 Work Phone: Comment on above: 1 Occurrences starti ng 07/05/2024 until 07/05/2025 End: 02-07-2025 LUNG DIFFUSION CAPACITY (DLCO) LUNG DIFFUSION CAPACITY (DLCO) PFT Routine Chronic obstructive pulmonary disease, unspecified COPD type (HCC) 1 Occurrences starting 01/09/2024 until 02/07/2025 [facility] Comment on above: 1 Occurrences starti ng 01/09/2024 until 02/07/2025 LUNG DIFFUSION CAPAC ITY (DLCO) LUNG DIFFUSION CAPACITY (DLCO) PFT Routine IPF (idiopathic pulmonary fibrosis) (HCC) 01/13/2025 9:03 AM EDT [facility] Work Phone: End: 02-07-2025 LUNG VOLUMES LUNG VOLUMES PFT Routine Chronic obstructive pulmonary disease, unspecified COPD type (HCC) 1 Occurrences starting 01/09/2024 until 02/07/2025 [facility] Comment on above: 1 Occurrences starti ng 01/09/2024 until 02/07/2025 LUNG VOLUMES LUNG VOLUMES PFT Routine IPF (idiopathic pulmonary fibrosis) (HCC) 01/13/2025 9:03 AM EDT [facility] Work Phone: OXIMETRY - NOCTURNAL OXIMETRY - NOCTURNAL Procedures Routine Interstitial pulmonary disease (HCC) Ordered: 04/30/2024 [facility] Comment on above: Ordered: 04/30/2024 End: 05-30-2025 OXIMETRY WITH AMBULATION OXIMETRY WITH AMBULATION PFT Routine Interstitial pulmonary disease (HCC) 1 Occurrences starting 04/30/2024 until 05/30/2025 [facility] Comment on above: 1 Occurrences starti ng 04/30/2024 until 05/30/2025 Patient Education [facility] Work Phone: Patient referral [facility] Work Phone: End: 02-07-2025 SPIROMETRY WITH DILATOR IF OBSTRUCTED SPIROMETRY WITH DILATOR IF OBSTRUCTED PFT Routine Chronic obstructive pulmonary disease, unspecified COPD type (HCC) 1 Occurrences starting 01/09/2024 until 02/07/2025 [facility] Comment on above: 1 Occurrences starti ng 01/09/2024 until 02/07/2025 SPIROMETRY WITH DILA TOR IF OBSTRUCTED SPIROMETRY WITH DILATOR IF OBSTRUCTED PFT Routine IPF (idiopathic pulmonary fibrosis) (HCC) 01/13/2025 9:03 AM EDT [facility] Work Phone: End: 06-02-2023 Us abdominal aorta real time screen study aaa US SCREENING FOR AAA Radiology Routine Family history of abdominal aortic aneurysm (AAA) 1 Occurrences starting 05/03/2022 until 06/02/[address] [facility] Work Phone: Comment on above: 1 Occurrences starti ng 05/03/2022 until 06/02/2023 End: 02-07-2025 XR Chest PA and Lateral XR CHEST 2V FRONTAL/LAT Radiology Routine Chronic obstructive pulmonary disease, unspecified COPD type (HCC) 1 Occurrences starting 01/09/2024 until 02/07/[address] [facility] Work Phone: Comment on above: 1 Occurrences starti ng 01/09/2024 until 02/07/2025 XR Chest PA and Lateral XR CHEST 2V FRONTAL/LAT Radiology Routine Chronic obstructive pulmonary disease, unspecified COPD type (HCC) 01/09/2024 11:16 AM EDT [facility] Immunizations Immunization Date Immunization Notes Care Provider Elroy alexandra 07-01-2024 COVID-19 vaccine, ag e 12+ yr (PFIZER-BIONTECH COMIRNATY) Talib Jung PRODUCT DESIGN SPECIALIST.PRESS ROOM SUPERVISOR Work Phone: [facility] 07-01-2024 influenza, high dose seasonal, preservative-free Talib Jung PRODUCT DESIGN SPECIALIST.PRESS ROOM SUPERVISOR Work Phone: [facility] 07-01-2024 influenza virus vacc ine, unspecified formulation Amilcar Tamayo MD Work Phone: [facility] 07-10-2023 COVID-19 vaccine, ag e 12+ yr, season (PFIZER-BIONTECH) Amilcar Tamayo MD Work Phone: [facility] 07-10-2023 influenza (HD-IIV4) vaccine, age 65+ yr, high dose, quadrivalent, PF (FLUZONE HIGH-DOSE) Amilcar Tamayo MD Work Phone: [facility] 07-10-2023 influenza virus vacc ine, unspecified formulation Xr Heather Work Phone: [facility] 12-06-2022 tetanus toxoid, redu lindsey diphtheria toxoid, and acellular pertussis vaccine, adsorbed Brendavero Santizo PRODUCT DESIGN SPECIALIST.ARMATURE STRAIGHTENER Work Phone: [facility] Work Phone: 05-03-2022 COVID-19 booster vaccine, age 12+ yr, bivalent (PFIZER-BIONTECH) Brenda Santizo PRODUCT DESIGN SPECIALIST.ARMATURE STRAIGHTENER Work Phone: [facility] 05-03-2022 influenza, high-dose , quadrivalent vaccine (FLUZONE HIGH DOSE QUADRIVALENT) Brenda Santizo PRODUCT DESIGN SPECIALIST.ARMATURE STRAIGHTENER Work Phone: [facility] 05-03-2022 influenza virus vacc ine, unspecified formulation Branden Hickman MD Work Phone: [facility] 07-01-2021 COVID-19 original vaccine, age 12+ yr, monovalent (PFIZER-BIONTECH - PURPLE TOP) Brenda Santizo PRODUCT DESIGN SPECIALIST.ARMATURE STRAIGHTENER Work Phone: [facility] Work Phone: 11-10-2020 Covid (Pfizer) Dr. Amilcar adler Work Phone: [facility] Work Phone: 10-20-2020 Covid (Pfizer) Dr. Amilcar adler Work Phone: [facility] Work Phone: 05-13-2018 influenza, high dose seasonal, preservative-free Branden Hickman MD Work Phone: [facility] 05-26-2017 influenza, high dose seasonal, preservative-free Branden Hickman MD Work Phone: [facility] 05-09-2016 influenza, high dose seasonal, preservative-free Branden Hickman MD Work Phone: [facility] 06-25-2015 pneumococcal conjuga te vaccine, 13 valent Branden Hickman MD Work Phone: [facility] 05-13-2015 influenza, high dose seasonal, preservative-free Branden Hickman MD Work Phone: [facility] 05-12-2014 influenza, seasonal, injectable Barnden Hickman MD Work Phone: [facility] 05-07-2013 influenza virus vacc ine, unspecified formulation Branden Hickman MD Work Phone: [facility] 06-08-2012 tetanus toxoid, redu lindsey diphtheria toxoid, and acellular pertussis vaccine, adsorbed Branden Hickman MD Work Phone: [facility] 05-07-2012 influenza virus vacc ine, unspecified formulation Branden Hickman MD Work Phone: [facility] Work Phone: 05-07-2012 pneumococcal polysaccharide vaccine, 23 valent Branden Hickman MD Work Phone: [facility] Work Phone: 08-03-2009 novel influenza-H1N1 -09, preservative-free, injectable Branden Hickman MD Work Phone: [facility] Work Phone: 07-13-2009 novel influenza-H1N1 -09, all formulations Branden Hickman MD Work Phone: [facility] 05-11-2009 influenza virus vacc ine, unspecified formulation Branden Hickman MD Work Phone: [facility] 06-13-2008 influenza virus vacc ine, whole virus Branden Hickman MD Work Phone: [facility] Work Phone: 12-11-2007 zoster vaccine, live Branden Hickman MD Work Phone: [facility] 06-05-2007 influenza virus vacc ine, unspecified formulation Branden Hickman MD Work Phone: [facility] Work Phone: 07-25-2006 pneumococcal polysaccharide vaccine, 23 valent Branden Hickman MD Work Phone: [facility] Work Phone: 02-08-2001 tetanus and diphther ia toxoids, not adsorbed, for adult use Branden Hickman MD Work Phone: [facility] Payers Date Payer Category Payer Self-pay [id number] 2017 Private Health Insurance HUMANA HUMANA MEDICARE SUPPLEMENT [id number] 2017-Present [phone] [address] [address] [place] [address] Indemnity [id number] 2017 Private Health Insurance [id number] 2017 Private Health Insurance [id number] 2015 Unknown [id number] 2008 Medicare MEDICARE MEDICAR E A AND B [id number] 2008-Present [phone] [place] [address] Medicare [id number] 2008 Medicare [id number] 2008 Medicare [id number] Unknown [id number] Unknown [id number] Unknown [id number] Unknown [id number] Unknown [id number] Unknown [id number] Unknown [id number] Social History Date Type Detail Facility Start: 08-13-2021 End: 09-05-2023 Tobacco smoking status ILIS Unknown if ever smoked [facility] Start: 05-10-2018 None [facility] Start: 05-10-2018 Spouse/ Significant Other [facility] Start: 11-26-2018 Non-smoker [facility] Start: 1945 Sex Assigned At Male [facility] Start: 05-03-2022 End: 04-30-2024 Tobacco smoking status NHIS Ex-smoker [facility] Start: 07-23-1961 End: 07-23-1986 History of tobacco use Current smoker [facility] Start: 07-23-1961 End: 07-23-1986 History of tobacco use Cigarette Smoker [facility] Start: 06-11-2021 End: 01-20-2025 Alcohol intake Current drinker of alcohol (finding) [facility] Start: 06-11-2021 End: 06-12-2023 Alcohol intake [facility] Start: 01-13-2021 History SDOH Alcohol Frequency 1 [facility] Start: 07-30-2007 History SDOH Alcohol Comment 4-5 beers a year [facility] Start: 01-13-2021 History SDOH Social Connections Phone 2 [facility] Start: 01-13-2021 History SDOH Social Connections Meetings 3 [facility] Start: 01-13-2021 History SDOH Social Connections Living 4 [facility] Start: 01-13-2021 History SDOH Physical Activity DPW 6 [facility] Start: 01-13-2021 History SDOH Financial 5 [facility] Start: 01-13-2021 Education 21 [facility] Start: 05-03-2022 End: 04-30-2024 Tobacco use and exposure Smokeless tobacco non-user [facility] Start: 04-18-2022 End: 06-13-2022 Exposure to SARS-CoV-2 (event) Not sure [facility] Work Phone: Start: 01-13-2021 End: 06-12-2023 Social connection and isolation panel [facility] Do you belong to any clubs or organizations such as yazidi groups, unions, fraternal or athletic groups, or school groups? Yes [facility] Are you now , , , , never or living with a partner? [facility] How often to you hav e a drink containing alcohol? Never [facility] Start: 07-15-2012 Average Number of Drinks Not [facility] Do you feel stress - tense, restless, nervous, or anxious, or unable to sleep at night because your mind is troubled all the time - these days [OSQ] Not at all [facility] (I/We) worried wheth er (my/our) food would run out before (I/we) got money to buy more. Never true [facility] In the past 12 month s, was there a time when you were not able to pay the mortgage or rent on time? No [facility] Start: 02-17-2020 Gender identity Identifies as male gender (finding) [facility] Start: 02-17-2020 Sexual orientation Heterosexual (finding) [facility] How often to you hav e a drink containing alcohol? Monthly or less [facility] Goals Date Patient Goal Desired Activity /State Personal health goal Functional Status Date Assessment Result Facility 05-15-2018 Are you deaf, or do you have serious difficulty hearing No 05/15/2018 1:16 PM Destiney Wheeler (Rn)(Hist), RN No [facility] 05-15-2018 Are you blind, or do you have serious difficulty seeing, even when wearing glasses No 05/15/2018 1:16 PM Destiney Wheeler)(Hist), RN No [facility] 05-15-2018 Do you have serious difficulty walking or climbing stairs No 05/15/2018 1:16 PM Destiney Wheeler (Rn)(Hist), RN No [facility] 05-15-2018 Do you have difficul ty dressing or bathing No 05/15/2018 1:16 PM Destiney Wheeler (Rn)(Hist), RN No [facility] 05-15-2018 Because of a physica l, mental, or emotional condition, do you have difficulty doing errands alone such as visiting a physician's office or shopping No 05/15/2018 1:16 PM Destiney Wheeler (Sita)(Hist), RN No [facility] Mental Status Date Assessment Result Facility 05-15-2018 Because of a physica l, mental, or emotional condition, do you have serious difficulty concentrating, remembering, or making decisions No 05/15/2018 1:16 PM Destiney Wheeler (Sita)(Hist), RN No [facility] Clinical Notes 05-12-2018 to 04-02-2025 Roosevelt Cam RN - 04/02/2025 3:10 PM EDTPatient InstructionsAmilcar Tamayo MD - 01/20/2025 10:03 AM EDTTelephone Encounter - Jasmina Urban LPN - 12/17/2024 1:35 PM EDTPatient Instructions Note Date & Type Note Facility 04-02-2025 Note HNO ID: [id number] Author: ROOSEVELT CAM RN Service: ? Author [...] Cam RN April 02, 2025 3:10 PM [facility] 04-02-2025 History of Present illness Narrative Value [...] 2025 3:10 PM documented in this encounter [facility] 04-02-2025 Note Patient Outreach (AM BC) MARSHAL CARRILLO ([id number]) 1945 M Date Time Provider Department 04/02/[facility] [place] [facility] [place] During your visit today, we recorded the [...] LPN - Fully Assessed Reason for Visit: Media Manager- Other [3613] Cmt: Chart Review Prescriptions as [...] 05/15/2018 Peptic ulcer [K27.9] 05/29/2018 Atherosclerosis of andreafski coronary artery of na*06/07/2019 Pure hypercholesterolemia [E78.00] 06/07/2019 Ventricular tachycardia (HCC) [I47.20] 12/06/2022 12/06/2022 Idiopathic pulmonary fibrosis (HCC) [J84.112] 07/01/2024 Encounter Status:Closed by ROOSEVELT CAM on 04/02/25 [facility] 01-20-2025 Instructions Amilcar Tamayo MD - 01/20/2025 [...] regular checkup within the next 6 months; [place] will contact you to set this up. documented in this encounter [facility] 01-20-2025 Note HNO ID: [id number] Author: AMILCAR TAMAYO MD Service: ? Author Type: Physician Type: Progress Notes Filed: 01/20/2025 10:18 Note Text: This note was created using NoteWriter. Jas Balbuena Gerardo is a 79 year old male. Patient presents with: F/U 6 Month Rocsoe Carrillo is a 79-year-old male with a [...] Coronary atherosclerosis of unspecified type of vessel, andreafski or graft 07/30/2007 SD Date: 1985. CABG Date: 1986 - left [...] History of ventricular tachycardia 04/05/2011 Dr Latif [facility] Interstitial lung disease (HCC) Pure hypercholesterolemia 03/22/2005 Unspecified cardiovascular disease 03/22/2005 [facility]--Dr. Latif Ventricular tachycardia (HCC) 12/06/2022 Current Outpatient [...] 29 35 AL (more content not included)... [facility] 01-20-2025 History of Present illness Narrative This note was created using [employer]. Subjective Marshla Carrillo is a 79 year old male. [...] Coronary atherosclerosis of unspecified type of vessel, andreafski or graft 07/30/2007 SD Date: 1985. CABG Date: 1986 - left [...] History of ventricular tachycardia 04/05/2011 Dr Latif [facility] Interstitial lung disease (HCC) Pure hypercholesterolemia 03/22/2005 Unspecified cardiovascular disease 03/22/2005 [facility]--Dr. Latif Ventricular tachycardia (HCC) 12/06/2022 Current Outpatient [...] noted but stable. - Next follow-up with supervisor shipfitters Dr. Chester in May, including a scheduled [...] update today with CBC. Low since had SD. Amilcar Tamayo MD Recording using [employer] software for draft documentation of the visit was discussed with the patient/authorized quality control representative; all questions welcomed and answered. Patient/authorized quality control representative agreed to proceed documented in this encounter [facility] 12-31-2024 Note HNO ID: [id number] Author: HOMA COLEMAN APRN.PRESS ROOM SUPERVISOR Service: ? Author Type: Nurse Practitioner Type: [...] of OFEV. He presents today for follow-up. [facility] 08/2024. He has been on Ofev for [...] Coronary atherosclerosis of unspecified type of vessel, andreafski or graft 07/30/2007 SD Date: 1985. CABG Date: 1986 - left [...] History of ventricular tachycardia 04/05/2011 Dr Latif [facility] Interstitial lung disease (HCC) Pure hypercholesterolemia 03/22/2005 Unspecified cardiovascular disease 03/22/2005 [facility]--Dr. Latif Ventricular tachycardia (HCC) 12/06/2022 Allergies: No [...] chronic interstitial disease. No superimposed acute process Mender Hand: PSCB Transcribe Date/Time: Apr 30 2024 4:22P... CT Chest: 05/2024 IMPRESSION: 1. Bilateral reticular opacities in a prominently peripheral and lower lung distribution with interstitial lung disease 2. There is a 4 mm nodule in the anterior left upper lobe 3. No thoracic lymphadenopathy Mender Hand: PSCB Transcribe Date/Time: May 21 2024 12:42P Dictated by : KANDY MOTA MD This examination was interpreted and the report reviewed and electronically signed by: KANDY MOTA MD on May 21 2024 1:33PM EST Results-Findings * * *Final Report* * * DATE OF EXAM: May 16 2024 10:15AM [facility] 0541 - CT CHEST WO IVCON / [...] Limitations: None. Lines (more content not included)... [facility] 12-17-2024 Telephone encounter Note JACEY 08/28/24 Patient phones requesting refills as follows: Requested Prescriptions Pending Prescriptions Disp Refills OFEV 150 mg capsule [Pharmacy Med Name: OFEV 150MG Capsule] 60 capsule 5 Sig: TAKE 1 CAPSULE BY MOUTH TWICE A DAY 12 HOURS APART WITH FOOD Please review and advise. Jasmina Urban LPN [facility] 12-17-2024 Miscellaneous Notes [facility] 08/28/24 Patient phones requesting refills as follows: Requested Prescriptions Pending Prescriptions Disp Refills OFEV 150 mg capsule [Pharmacy Med Name: OFEV 150MG Capsule] 60 capsule 5 Sig: TAKE 1 CAPSULE BY MOUTH TWICE A DAY 12 HOURS APART WITH FOOD Please review and advise. Jasmina Urban LPN documented in this encounter [facility] 08-28-2024 History of Present illness Narrative [...] of OFEV. He presents today for follow-up. [facility] 05/28/24 and was started on OFEV. Has [...] Coronary atherosclerosis of unspecified type of vessel, andreafski or graft 07/30/2007 SD Date: 1985. CABG Date: 1986 - left [...] History of ventricular tachycardia 04/05/2011 Dr Latif [facility] Interstitial lung disease (HCC) Pure hypercholesterolemia 03/22/2005 Unspecified cardiovascular disease 03/22/2005 [place] [facility]--Dr. Latif Ventricular tachycardia (HCC) 12/06/2022 Allergies: No [...] chronic interstitial disease. No superimposed acute process Mender Hand: PAMELA Transcribe Date/Time: Apr 30 2024 4:22P... CT Chest: 05/2024 IMPRESSION: 1. Bilateral reticular opacities in a prominently peripheral and lower lung distribution with interstitial lung disease 2. There is a 4 mm nodule in the anterior left upper lobe 3. No thoracic lymphadenopathy Mender Hand: PSCB Transcribe Date/Time: May 21 2024 12:42P Dictated by : KANDY MOTA MD This examination was interpreted and the report reviewed and electronically signed by: KANDY MOTA MD on May 21 2024 1:33PM EST Results-Findings * * *Final Report* * * DATE OF EXAM: May 16 2024 10:15AM [facility] 0541 - CT CHEST WO IVCON / [...] which included preparing to see the patient, [id number] patient care, completing clinical documentation, performing a medically appropriate examination, counseling and educating the patient/family/caregiver, and ordering medications, tests, or procedures. documented in this encounter [facility] 08-28-2024 Note HNO ID: [id number] Author: HOMA COLEMAN APRN.JULIA Service: ? Author [...] Coronary atherosclerosis of unspecified type of vessel, andreafski or graft 07/30/2007 SD Date: 1985. CABG Date: 1986 - left [...] History of ventricular tachycardia 04/05/2011 Dr Latif [facility] Interstitial lung disease (HCC) Pure hypercholesterolemia 03/22/2005 Unspecified cardiovascular disease 03/22/2005 [place] [facility]--Dr. Latif Ventricular tachycardia (HCC) 12/06/2022 Allergies: No [...] chronic interstitial disease. No superimposed acute process Mender Hand: [facility] Transcribe Date/Time: Apr 30 2024 4:22P... CT Chest: 05/2024 IMPRESSION: 1. Bilateral reticular opacities in a prominently peripheral and lower lung distribution with interstitial lung disease 2. There is a 4 mm nodule in the anterior left upper lobe 3. No thoracic lymphadenopathy Mender Hand: [facility] Transcribe Date/Time: May 21 2024 12:42P Dictated by : KANDY MOTA MD This examination was interpreted and the report reviewed and electronically signed by: KANDY MOTA MD on May 21 2024 1:33PM EST Results-Findings * * *Final Report* * * DATE OF EXAM: May 16 2024 10:15AM [facility] 0541 - CT CHEST WO IVCON / [...] chest is av (more content not included)... [facility] 07-08-2024 Note HNO ID: [id number] Author: BRANDEN HICKMAN MD Service: ? Author Type: Physician Type: Progress Notes Filed: 07/09/2024 18:03 Note Text: Heart, Vascular and Thoracic [place] Charo Leyva Department of Cardiovascular Medicine SECTION OF INTERVENTIONAL CARDIOLOGY OUTPATIENT VISIT DATE July 08, 2024 OUTPATIENT VISIT TYPE ESTABLISHED PRIMARY CARE PHYSICIAN: Amilcar Tamayo [address] [place] [address] REFERRING PHYSICIAN: Mauricio Hickman [address], Desk J2-3 [facility] [address] CHIEF COMPLAINT: Patient presents with: Follow Up [...] mm Hg. PAST CARDIAC HISTORY: 07/23/1986 - SD - symptoms were SOB after chasing a calf at work (at [employer]). 08/1986 - CABG - TORRES to LAD, [...] continued aspirin. 06/01/2018 - Stress Nuclear in [place] 7:00, Stage 3, 107% APMHR, 8 METS ECG - baseline RBBB, exercise 1-[address] depression in I, L, V2 Nuclear - mid inferoseptal/basal, mid inferior perfusion changes appearing compatible with an area of previous SD LVEF 59% 07/06/2018 - [facility] [...] Saw GI th (more content not included)... [facility] 07-08-2024 History of Present illness Narrative Images from the original note were not included. Heart, Vascular and Thoracic [place] Charo Leyva Department of Cardiovascular Medicine SECTION OF INTERVENTIONAL CARDIOLOGY OUTPATIENT VISIT DATE July 08, 2024 OUTPATIENT VISIT TYPE ESTABLISHED PRIMARY CARE PHYSICIAN: Amilcar Tamayo [address] [place] [address] REFERRING PHYSICIAN: Mauricio Hickman [address], Desk J2-3 [facility] [id number] CHIEF COMPLAINT: Patient presents with: Follow Up [...] mm Hg. PAST CARDIAC HISTORY: 07/23/1986 - SD - symptoms were SOB after chasing a calf at work (at [employer]). 08/1986 - CABG - TORRES to LAD, [...] continued aspirin. 06/01/2018 - Stress Nuclear in [place] 7:00, Stage 3, 107% APMHR, 8 METS ECG - baseline RBBB, exercise 1-[address] depression in I, L, V2 Nuclear - mid inferoseptal/basal, mid inferior perfusion changes appearing compatible with an area of previous [place] LVEF 59% 07/06/2018 - [facility] [...] 80 mg daily. 10/26/2021 - saw local mud grinder in [place] who ordered repeat stress test for surveillance [...] Coronary atherosclerosis of unspecified type of vessel, andreafski or graft 07/30/2007 SD Date: 1985. CABG Date: 1986 - left [...] History of ventricular tachycardia 04/05/2011 Dr Latif [facility] Interstitial lung disease (HCC) Pure hypercholesterolemia 03/22/2005 Unspecified cardiovascular disease 03/22/2005 [facility]--Dr. Latif Ventricular tachycardia (HCC) 12/06/2022 PAST SURGICAL HISTORY Procedure Laterality Date ANGIOPLASTY 2001 1 angioplasty COLONOSCOPY FLX DX W/COLLJ SPEC WHEN PFRMD 09/14/2007 Very long/lax colon PAST SURGICAL HISTORY OF 1986 triple bypass surgery heart at [facility] PAST SURGICAL HISTORY OF 2010 Squemous Cell- [...] CABG and PCI 1. CAD - S/p SD on 07/23/1986 S/p CABG x 3 in [...] interstitial lung disease. 4. Stress PET at [facility] on 07/11/2023 showing small area of basal [...] of Cardiovascular Medicine Heart, Vascular, and Thoracic [place] [address], [place] [address] Office - [phone] extension [phone] Office Appointments: [phone] extension [phone] documented in this encounter [facility] 07-01-2024 Note HNO ID: [id number] Author: TALIB JUNG APRN.PRESS ROOM SUPERVISOR Service: ? Author Type: Nurse Practitioner Type: [...] Pulmonary Fibrosis (Hcc) - 07/01/2024 Atherosclerosis of [place] Coronary Artery of [place] Heart Without Angina Pectoris - 06/07/2019 Pure [...] in 04-22 Coronary Atherosclerosis - 07/30/2007 Comment: SD Date: 1985 CABG Date: 1986: TORRES-LAD, KAMLESH-RCA, [...] Speech normal. Beh (more content not included)... [facility] 07-01-2024 History of Present illness Narrative SUBJECTIVE [...] Pulmonary Fibrosis (Hcc) - 07/01/2024 Atherosclerosis of [place] Coronary Artery of [place] Heart Without Angina Pectoris - 06/07/2019 Pure [...] in 04-22 Coronary Atherosclerosis - 07/30/2007 Comment: SD Date: 1985 CABG Date: 1986: TORRES-LAD, KAMLESH-RCA, [...] diagnosis) Following with pulmonary. 2. 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 - ICD9: 414.01, [...] YR, HIGH DOSE, TRIVALENT (FLUZONE HIGH-DOSE) - [employer] COVID-19 VACCINE AGE 12+ YR (COMIRNATY) Portions [...] Talib Jung APRN-JULIA documented in this encounter [facility] 05-28-2024 Instructions Homa Coleman APRN.CNP - 05/28/2024 10:31 AM EDT Blood work today. Based on blood work, we can decide on medication. Ofev or Esbriet are the two medications we can consider. documented in this encounter [facility] 05-28-2024 History of Present illness Narrative [...] the most noticeable functional decline was from [id number]. He has a history of CAD and [...] Coronary atherosclerosis of unspecified type of vessel, andreafski or graft 07/30/2007 SD Date: 1985. CABG Date: 1986 - left [...] ulcers History of ventricular tachycardia 04/05/2011 Dr Latfi [facility] Pure hypercholesterolemia 03/22/2005 Unspecified cardiovascular disease 03/22/2005 [place] [facility]--Dr. Latif Ventricular tachycardia (HCC) 12/06/2022 Allergies: No [...] chronic interstitial disease. No superimposed acute process Mender Hand: [facility] Transcribe Date/Time: Apr 30 2024 4:22P... CT Chest: 05/16/2024 IMPRESSION: 1. Bilateral reticular opacities in a prominently peripheral and lower lung distribution with interstitial lung disease 2. There is a 4 mm nodule in the anterior left upper lobe 3. No thoracic lymphadenopathy Mender Hand: [facility] Transcribe Date/Time: May 21 2024 12:42P Dictated by : KANDY MOTA MD This examination was interpreted and the report reviewed and electronically signed by: KANDY MOTA MD on May 21 2024 1:33PM EST Results-Findings * * *Final Report* * * DATE OF EXAM: May 16 2024 10:15AM [facility] 0541 - CT CHEST WO IVCON / [...] which included preparing to see the patient, [id number] patient care, completing clinical documentation, performing a medically appropriate examination, counseling and educating the patient/family/caregiver, ordering medications, tests, or procedures, and communicating results to the patient/family/caregiver. documented in this encounter [facility] 05-28-2024 Note HNO ID: [id number] Author: HOMA COLEMAN APRN.CNP Service: ? Author Type: Nurse [...] the most noticeable functional decline was from 0929-6597. He has a history of CAD and [...] Coronary atherosclerosis of unspecified type of vessel, andreafski or graft 07/30/2007 SD Date: 1985. CABG Date: 1986 - left [...] Pure hypercholesterolemia 03/22/2005 Unspecified cardiovascular disease 03/22/2005 [place]--Dr. Latif Ventricular tachycardia (HCC) 12/06/2022 Allergies: No [...] chronic interstitial disease. No superimposed acute process Mender Hand: [facility] Transcribe Date/Time: Apr 30 2024 4:22P... CT Chest: 05/16/2024 IMPRESSION: 1. Bilateral reticular opacities in a prominently peripheral and lower lung distribution with interstitial lung disease 2. There is a 4 mm nodule in the anterior left upper lobe 3. No thoracic lymphadenopathy Mender Hand: [facility] Transcribe Date/Time: May 21 2024 12:42P Dictated by : KANDY MOTA MD This examination was interpreted and the report reviewed and electronically signed by: KANDY MOTA MD on May 21 2024 1:33PM EST Results-Findings * * *Final Report* * * DATE OF EXAM: May 16 2024 10:15AM [facility] 0541 - CT CHEST WO IVCON / [...] for comparison RESULT: (more content not included)... [facility] 05-16-2024 History of Present illness Narrative Radiology [...] PATIENT PRESENTS WITH AN IMPLANTABLE OR ATTACHED SATELLITE TELEVISION INSTALLER: No RADIOLOGY DEPARTMENT: CT; Exam(s) Completed: Chest PERIPHERAL IV DATA: Not applicable SIGNED BY: RT Terell(Tana) May 16, 2024 4:04 PM documented in this encounter [facility] 05-16-2024 Note HNO ID: [id number] Author: LIA STUART RT(Tana) Service: ? Author Type: Accountant Manager Type: Progress Notes Filed: 05/16/2024 16:04 Note [...] PATIENT PRESENTS WITH AN IMPLANTABLE OR ATTACHED SATELLITE TELEVISION INSTALLER: No RADIOLOGY DEPARTMENT: CT; Exam(s) Completed: Chest PERIPHERAL IV DATA: Not applicable SIGNED BY: RT Terell(Tana) May 16, 2024 4:04 PM [facility] 05-16-2024 Note HNO ID: [id number] Author: ALONDRA MERLOS RPFT Service: ? Author [...] Alondra THELMA Merlos PATIENT NAME: Marshal Balbuena [place] DATE: May 16, 2024 TIME: 9:38 AM Comment: [facility] 05-16-2024 Procedure note Associated Ord er(s): OXIMETRY [...] NAME: THELMA Mireles PATIENT NAME: Marshal Balbuena [place] DATE: May 16, 2024 TIME: 9:38 AM Comment: [facility] 05-16-2024 Procedure note Associated Ord er(s): [...] 9:38 AM Comment: documented in this encounter [facility] 05-16-2024 Note HNO ID: [id number] Author: ALONDRA MERLOS RPFT Service: ? Author Type: Respiratory Therapist Type: Progress Notes Filed: 05/16/2024 09:38 Note Text: PULM FUNCTION: Provider: Millie Chester MD Assisting Tech: Alondra Merlos RPFT Oximetry - Ambulation: 1 [facility] 05-16-2024 History of Present illness Narrative PULM FUNCTION: Provider: Millie Chester MD Assisting Tech: Alondra Merlos RPFT Oximetry - Ambulation: 1 documented in this encounter [facility] 04-30-2024 History of Present illness Narrative Images from the original note were not included. . Respiratory [place] Note Patient name: Marshal Carrillo PCP: Amilcar [...] Coronary atherosclerosis of unspecified type of vessel, andreafski or graft 07/30/2007 SD Date: 1985. CABG Date: 1986 - left [...] History of ventricular tachycardia 04/05/2011 Dr Latif [facility] Pure hypercholesterolemia 03/22/2005 Unspecified cardiovascular disease 03/22/2005 [place]--Dr. Latif Ventricular tachycardia (HCC) 12/06/2022 ALLERGIES No [...] OF 1986 triple bypass surgery heart at [facility] PAST SURGICAL HISTORY OF 2010 Squemous Cell- [...] COPD -Continue abstinence Millie Chester MD Res[facility] [place] documented in this encounter [facility] 04-30-2024 Note HNO ID: [id number] Author: MILLIE CHESTER MD Service: ? Author Type: Physician Type: Progress Notes Filed: 04/30/2024 17:23 Note Text: . Respiratory [place] Note Patient name: Marshal Carrillo PCP: Amilcar [...] Coronary atherosclerosis of unspecified type of vessel, andreafski or graft 07/30/2007 SD Date: 1985. CABG Date: 1986 - left [...] History of ventricular tachycardia 04/05/2011 Dr Latif [facility] Pure hypercholesterolemia 03/22/2005 Unspecified cardiovascular disease 03/22/2005 [place]--Dr. Latif Ventricular tachycardia (HCC) 12/06/2022 ALLERGIES No [...] Take one(1) tablet (more content not included)... [facility] 04-30-2024 Note HNO ID: [id number] Author: ALONDRA MERLOS RPFT Service: ? Author Type: Respiratory Therapist Type: Progress Notes Filed: 04/30/2024 13:00 Note Text: PULM FUNCTION: Provider: Millie Chester MD Assisting Tech: Alondra Merlos RPFT Spirometry: 1 DLCO: 1 [facility] 04-30-2024 History of Present illness Narrative PULM FUNCTION: Provider: Millie Chester MD Assisting Tech: Alondra Merlos RPFT Spirometry: 1 DLCO: 1 documented in this encounter [facility] 04-30-2024 Nurse Note Intake information documented in the prior visit with THELMA Mireles today. [facility] 04-30-2024 Nurse Note Intake information documented in the prior visit with THELMA Mireles today. documented in this encounter [facility] 04-30-2024 History of Present illness Narrative [...] PATIENT PRESENTS WITH AN IMPLANTABLE OR ATTACHED SATELLITE TELEVISION INSTALLER: No RADIOLOGY DEPARTMENT: General X-ray: Exam(s) Completed: Chest X-Ray PERIPHERAL IV DATA: Not applicable SIGNED BY: GIBSON Carlos) April 30, 2024 12:13 PM documented in this encounter [facility] 04-30-2024 Note HNO ID: [id number] Author: JOESPH PERALES RT (R) Service: Radiology [...] PATIENT PRESENTS WITH AN IMPLANTABLE OR ATTACHED SATELLITE TELEVISION INSTALLER: No RADIOLOGY DEPARTMENT: General X-ray: Exam(s) Completed: Chest X-Ray PERIPHERAL IV DATA: Not applicable SIGNED BY: RT Breanna(R) April 30, 2024 12:13 PM [facility] 01-11-2024 History of Present illness Narrative PULM FUNCTION SMARTBLOCK: Provider: Talib Jung APRN.PRESS ROOM SUPERVISOR Assisting Tech: Alondra Merlos RPFT Spirometry: 1 DLCO: 1 LV - Box: 1 documented in this encounter [facility] 01-09-2024 History of Present illness Narrative [...] PATIENT PRESENTS WITH AN IMPLANTABLE OR ATTACHED SATELLITE TELEVISION INSTALLER: No RADIOLOGY DEPARTMENT: General X-ray: Exam(s) Completed: Chest X-Ray PERIPHERAL IV DATA: Not applicable SIGNED BY: RT Breanna(R) January 09, 2024 11:10 AM documented in this encounter [facility] 01-09-2024 History of Present illness Narrative [...] Prior smoker. 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 Walks about 2.5 miles a day. Prior [...] Known Allergies ACTIVE PROBLEM LIST Atherosclerosis of [place] Coronary Artery of [place] Heart Without Angina Pectoris - 06/07/2019 Pure [...] Myocardial Infarction - 04/05/2011 Comment: Dr Latif [facility] Pvc (Premature Ventricular Contraction) - 04/05/2011 Comment: Dr Bhavya Romero [facility] Essential Hypertension - 11/06/2008 Comment: Creat 0.9 in 10-20, 1 in 04-22 Coronary Atherosclerosis - 07/30/2007 Comment: SD Date: 1985 CABG Date: 1986: TORRES-LAD, KAMLESH-RCA, [...] Recommend regular aerobic exercise 3. 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 - ICD9: 414.01, [...] medications.. SHANIQUA White documented in this encounter [facility] 07-11-2023 History of Present illness Narrative [...] TIME: PATIENT DISCHARGED TO: Ambulatory patient, left [place] department area. A Diagnostic radioactive procedure has taken place, with no further precautions necessary other than routine body substance precautions. More information regarding radiation safety can be found using this link: [email or web address] SIGNATURE: RT Newton(R) PATIENT NAME: Marshal Carrillo DATE: July 11, 2023 TIME: 2:58 PM PAGER/CONTACT #: documented in this encounter [facility] 06-13-2023 Miscellaneous Notes Pt scheduled 07/11 [...] to ordering physician and to P PET VAMPER [facility] with recommendations. If all recommended orders are present route to P PET VAMPER [facility] This form is used for MAIN CAMPUS APPOINTMENTS ONLY. Is this request for a Main [place] PET scan appointment? Yes: Pigment Pumper: Rashaad Gómez Requesting Person (Last Name, First Name): Area Code + Phone/Pager: [phone] Who do we call to schedule this appointment? Patient Requesting Staff Area Code + Phone/Pager: [phone] PET Orders (A delay in scheduling will [...] day/next day medically urgent scans please call [phone] to expedite LVEF: LV Ejection Fraction (%) Date Value 06/27/2022 57 LVEF Free text: Yes, see above. Additional comments: N/A Send requests to P CARDIAC PET MD CALDWELL documented in this encounter [facility] 06-12-2023 Miscellaneous Notes Prior auth request received and is available for review under scanned documents Annette documented in this encounter [facility] 12-06-2022 Instructions Brenda Santizo APRN.CNS - 12/06/2022 2:20 PM EDT documented in this encounter [facility] 12-06-2022 History of Past i llness [...] age 40 on the day of his SD US 10-09 showed no aneurysmal dilatation documented as of this encounter (statuses as of 12/07/2022) [facility] History of Past illness Narrative* Problem [...] age 40 on the day of his SD US 10-09 showed no aneurysmal dilatation documented as of this encounter (statuses as of 06/13/2023) [facility] History of Past illness Narrative* Problem [...] age 40 on the day of his SD US 10-09 showed no aneurysmal dilatation documented as of this encounter (statuses as of 07/12/2023) [facility] History of Past illness Narrative* Problem [...] age 40 on the day of his SD 05-22 showed no aneurysmal dilatation documented as of this encounter (statuses as of 07/12/2023) [facility] History of Present illness Narrative* Brenda Santizo, PRODUCT DESIGN SPECIALIST.ARMATURE STRAIGHTENER - 12/06/2022 2:00 PM EDT SUBJECTIVE: SHINGRIX [...] Left Lower Eyelid Peptic Ulcer Atherosclerosis of [place] Coronary Artery of [place] Heart Without Angina Pectoris Pure Hypercholesterolemia Encounter [...] Dr. Hickman and Dr. Latif. CABG at [facility] with Dr. Rider. Last seen by 05/2022 echocardiogram completed showed mild concentric LVH, normal LV systolic function, estimated EF 57%. Grade 1 left ventricular diastolic dysfunction. Mildly dilated RA. No significant valvular abnormalities. Followed by [facility]. Prescribed atorvastatin 80 mg daily, clopidogrel 75 mg daily ezetimibe 10 mg daily and metoprolol ER 25 mg daily. Notes his current mud grinder will be leaving [facility]. Considering seeing another mud grinder locally HTN: Mr. Carrillo indicates that he [...] Coronary atherosclerosis of unspecified type of vessel, andreafski or graft 07/30/2007 SD Date: 1985. CABG Date: 1986 - left [...] History of ventricular tachycardia 04/05/2011 Dr Latif [facility] Pure hypercholesterolemia 03/22/2005 Unspecified cardiovascular disease 03/22/2005 [place]--Dr. Latif Social History Tobacco Use Smoking status: [...] Abs Lymph 1.00 - 4.00 k/uL 1.52 Guadalupe% % 8.7 Abs Guadalupe <0.87 k/uL 0.41 Eosin% % 2.3 Abs [...] (primary diagnosis) Currently seeing Dr. Hickman at [facility] and [facility] Dr Garcia. His local mud grinder will be leaving the practice. He will need to reestablish with a mud grinder. He may continue with [facility] or be seen locally here. [...] 6 mo follow up MD Brenda Rivas APRN.ARMATURE STRAIGHTENER Medical Decision Making: Problems: Moderate: 2+ stable chronic illnesses Risk: Low: Low risk from testing/treatment Medical Decision Making Level: 3 - Low [facility] Miscellaneous Notes* Telephone Encounter - Branden [...] of aortic aneurysm. 2. Preserved LV function. [place] [employer] message sent. Mauricio Hickman MD [facility] History of Present illness Narrative* Sherri [...] 20, 2022 10:30 AM [facility] History of Present illness Narrative* Branden Hickman MD - 06/13/2022 11:30 AM EDT Images from the original note were not included. Heart and Vascular [place] Charo Leyva Department of Cardiovascular Medicine SECTION OF INTERVENTIONAL CARDIOLOGY OUTPATIENT VISIT DATE June 11, 2021 OUTPATIENT VISIT TYPE ESTABLISHED PRIMARY CARE PHYSICIAN: Amilcar Tamayo [address] [place] [address] REFERRING PHYSICIAN: Mauricio Hickman [address] J[address] [facility] [address] CHIEF COMPLAINT: Patient presents with: Recheck: 12 [...] week without SHIELDS. He lives alone in [place]. His 1.5 years ago due to cancer. No PND, orthopnea, edema No palpitations No syncope, presyncope Points out history of abdominal aortic aneurysm in father and paternal uncle. PAST CARDIAC HISTORY: 07/23/1986 - SD - symptoms were SOB after chasing a calf at work (at [employer]). 08/1986 - CABG - TORRES to LAD, [...] continued aspirin. 06/01/2018 - Stress Nuclear in [place] Nathan 7:00, Stage 3, 107% APMHR, 8 METS ECG - baseline RBBB, exercise 1-[address] depression in I, L, V2 Nuclear - mid inferoseptal/basal, mid inferior perfusion changes appearing compatible with an areaof previous [place] LVEF 59% 07/06/2018 - [facility] [...] 80 mg daily. 10/26/2021 - saw local mud grinder in [place] who ordered repeat stress test for surveillance (patient asymptomatic) 10/28/2021 - OSH exercise SPECT Mild marian-infarct ischemia in the basal inferior/inferoseptal segments. LVEF 60%. PAST MEDICAL HISTORY Diagnosis Date Cardiac dysrhythmia, unspecified 07/30/2007 history of paroxysmal atrial and ventricular complexes and nonsustained ventricular tachycardia Coronary atherosclerosis of unspecified type of vessel, andreafski or graft 07/30/2007 SD Date: 1985. CABG Date: 1986 - left [...] History of ventricular tachycardia 04/05/2011 Dr Latif [facility] Pure hypercholesterolemia 03/22/2005 Unspecified cardiovascular disease 03/22/2005 [place]--Dr. Latif PAST SURGICAL HISTORY Procedure Laterality Date ANGIOPLASTY 2001 1 angioplasty COLONOSCOPY FLX DX W/COLLJ SPEC WHEN PFRMD 09/14/2007 Very long/lax colon PAST SURGICAL HISTORY OF 1986 triple bypass surgery heart at [facility] PAST SURGICAL HISTORY OF 2010 Squemous Cell- [...] Abs Lymph 1.00 - 4.00 k/uL 1.52 Guadalupe% % 8.7 Abs Guadalupe <0.87 k/uL 0.41 Eosin% % 2.3 Abs [...] Department of Cardiovascular Medicine Heart [facility] [place] [facility] Desk [place] [address] Office - [phone] extension [phone] Office Appointments: [phone] extension [phone] [facility] Instructions* Patient Instructions* Brenda Santizo APRN.CNS - 05/03/2022 2:09 PM EDT Check lipids, CBC, CMP - labs at your earliest convenience. documented [facility] History of Present illness Narrative* Brenda [...] Left Lower Eyelid Peptic Ulcer Atherosclerosis of [place] Coronary Artery of [place] Heart Without Angina Pectoris Pure Hypercholesterolemia HPI [...] Dr. Hickman and Dr. Latif. CABG at [facility] with Dr. Rider. Labs [facility] October 2021 HTN: Mr. Carrillo indicates that [...] Coronary atherosclerosis of unspecified type of vessel, andreafski or graft 07/30/2007 SD Date: 1985. CABG Date: 1986 - left [...] History of ventricular tachycardia 04/05/2011 Dr Latif [facility] Pure hypercholesterolemia 03/22/2005 Unspecified cardiovascular disease 03/22/2005 [place]--Dr. Latif Social History Tobacco Use Smoking status: [...] V03.89, ICD10: Z23 in office today - [employer] COVID-19 BIVALENT BOOSTER VACCINE, AGE 12+ YR [...] Endorse resuming Protonix . 14. 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 - ICD9: 414.01, ICD10: I25.10 Currently without CP, SOBOE, good exercise tolerance 6-9 mo follow up MD Brenda Rivas APRN.ARMATURE STRAIGHTENER Medical Decision Making: Problems: Moderate: 2+ stable chronic illnesses Data: Unique test(s) ordered: 3+ Risk: Moderate: Drug management Medical Decision Making Level: 4 - Moderate [facility] History of Past illness Narrative* Problem Noted Date Resolved Date Hematemesis 05/12/2018 05/15/2018 Hypertension 12/02/2014 01/23/2018 History of ventricular tachycardia 04/05/2011 08/02/2017 Overview: Dr Latif [facility] Postsurgical aortocoronary bypass status 011 08/02/2017 Overview: [facility] Tobacco use disorder 11/06/2008 12/25/2009 Overview: About a 30 pack year from age 18 to 38: quit at age 40 on the day of his SD US 10-09 showed no aneurysmal dilatation documented as of this encounter (statuses as of 12/07/2021) [facility] of Past illness Narrative* Problem Noted Date Resolved Date Hematemesis 05/12/2018 05/15/2018 Hypertension 12/02/2014 01/23/2018 History of ventricular tachycardia 04/05/2011 08/02/2017 Overview: [facility] Postsurgical aortocoronary bypass status 011 08/02/2017 Overview: [facility] Tobacco use disorder 11/06/2008 12/25/2009 Overview: About a 30 pack year from age 18 to 38: quit at age 40 on the day of his SD US 10-09 showed no aneurysmal dilatation documented as of this encounter (statuses as of 05/03/2022) [facility] History of Past illness Narrative* Problem [...] age 40 on the day of his SD US 10-09 showed no aneurysmal dilatation documented as of this encounter (statuses as of 06/14/2022) [facility] of Past illness Narrative* Problem [...] age 40 on the day of his SD US 10-09 showed no aneurysmal dilatation documented as of this encounter (statuses as of 07/01/2022) [facility] of [facility] illness Narrative* Problem [...] age 40 on the day of his SD US 10-09 showed no aneurysmal dilatation documented as of this encounter (statuses as of 11/24/2022) [facility] illness Narrative* Problem [...] age 40 on the day of his SD US - showed no aneurysmal dilatation documented as of this encounter (statuses as of 06/18/2023) [facility]Reason for visit Narrative* Chief Complaint 1 Y FU COVID TEST/PROCEDURE CABG CABG Reason for Visit HLD (hyperlipidemia) Aortocoronary bypass status Atherosclerotic heart disease of andreafski coronary artery without angina pectoris Essential hypertension Paroxysmal ventricular tachycardia Presence of stent in coronary artery COVID-19 [facility] Work Phone: Evaluation note* Diagnosis Onset Date Resolution Status HLD (hyperlipidemia) acute Aortocoronary bypass status 1985 chronic Atherosclerotic heart diseas e of andreafski coronary artery without angina pectoris chronic Essential hypertension chron ic Paroxysmal ventricular tachycardia chronic Presence of stent in coronary artery November, chronic COVID-19 acute [facility] Work Phone: Evaluation note* Diagnosis S/P CABG (coronary artery bypass graft)- Primary Postsurgical aortocoronary bypass status Acute ischemic heart disease, unspecified (HCC) [facility] encounter [facility] Diagnosis Routine medical exam- Primary [...] of hemorrhage, perforation, or obstruction 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 documented [facility] encounter [facility] Diagnosis 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- Primary Mixed hyperlipidemia Essential hypertension Unspecified essential hypertension S/P CABG (coronary artery bypass graft) Postsurgical aortocoronary bypass status S/P drug eluting coronary stent placement Postsurgical percutaneous transluminal coronary angioplasty status Family history of aortic aneurysm Family history of other cardiovascular diseases documented [facility] this encounter [facility] [place] [facility]* Diagnosis 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- Primary [facility] in this encounter [facility]* Diagnosis S/P CABG (coronary artery [...] coronary angioplasty status documented in this encounter [facility] [place] [facility]* Diagnosis Family history of abdominal aortic aneurysm (AAA) documented in this encounter [facility] [place] [facility]* Diagnosis 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 (coronary artery bypass graft) Postsurgical aortocoronary bypass status documented in this encounter [facility] [place] noteNo assessment information availableWGood Samaritan [facility] Work Phone: Evaluation note* Diagnosis Chronic obstructive pulmonary disease, unspecified COPD type (HCC)- Primary Essential hypertension Unspecified essential hypertension 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 Mixed hyperlipidemia documented in this encounter [facility] [place] [facility]* Diagnosis Chronic obstructive pulmonary disease, unspecified COPD type (HCC) documented in this encounter [facility] [place] [facility]* Diagnosis Chronic obstructive pulmonary disease, unspecified COPD type (HCC) documented in this encounter [facility] [place] [facility]* Diagnosis SOB (shortness of breath)- Primary Shortness of breath documented in this encounter [facility] [place] [facility]* Diagnosis Chronic obstructive pulmonary disease, unspecified COPD type (HCC) documented in this encounter [facility] [place] [facility]* Diagnosis 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 Former smoker Personal history of tobacco use, presenting hazards to health documented [facility] this encounter [facility]* Diagnosis Chronic obstructive pulmonary disease, unspecified COPD type (HCC) documented in this encounter [facility] [place] [facility]* Diagnosis Interstitial pulmonary disease (HCC) Postinflammatory [...] fibrosis) (HCC) Idiopathic pulmonary fibrosis 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 [facility] Diagnosis Idiopathic pulmonary fibrosis (HCC)- Primary Idiopathic pulmonary fibrosis 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 Essential hypertension Unspecified essential hypertension Mixed hyperlipidemia Chronic idiopathic thrombocytopenia (HCC) Immune thrombocytopenic purpura Screening for depression Encounter for screening examination for other mental health and behavioral disorders Encounter for immunization Need for other specified prophylactic vaccination against single bacterial disease [facility] Diagnosis 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- Primary S/P CABG (coronary artery bypass graft) Postsurgical aortocoronary bypass status Essential hypertension Unspecified essential hypertension Family history of aortic aneurysm Family history of other cardiovascular diseases [facility] Diagnosis 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- Primary S/P CABG [...] [facility] Diagnosis 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 Essential hypertension Unspecified [...] Immune thrombocytopenic purpura documented in this encounter [facility] for referral (narrative)* Diagnostic Procedure Only (Routine) - Pending Review Specialty Diagnoses / Procedures Referred By Contac t Referred To Contact US IMAGING Diagnoses Family history of abdominal aortic aneurysm (AAA) Procedures US SCREENING FOR AAA (2017) US ABDOMINAL AORTA REAL TIME SCREEN STUDY AAA Brenda Santizo APRN.ARMATURE STRAIGHTENER [address] [place] [address] Us Imaging Referral ID Status Reason Start Date Expiration Date Visits Requested Visits Authorized [id number] Pending Review Auto-Generat ed Referral 05/03/2022 06/02/2023 1 1 [facility] for referral (narrative)* Outpatient Procedure (Routine) - Authorized Specialty Diagnoses / Procedures Referred By Contac t Referred To Contact [facility] Diagnoses 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 Essential hypertension S/P CABG (coronary artery bypass graft) Family history of aortic aneurysm Procedures ECHO ECHO TTHRC R-T 2D W/WOM-MODE COMPL SPEC&COLR D Branden Hickman MD [address], [place] [place] [address] [facility] [place] [facility] [place] [address] Referral ID Status Reason Start Date Expiration Date Visits Requested Visits Authorized [id number] Authorized Auto-Generat ed Referral 06/13/2023 1 1 [facility] for referral (narrative)* Diagnostic Procedure Only (Routine) - Closed Specialty Diagnoses / Procedures Referred By Contac t Referred To Contact US IMAGING Diagnoses Family history of abdominal aortic aneurysm (AAA) Procedures US SCREENING FOR AAA (2017) US ABDOMINAL AORTA REAL TIME SCREEN STUDY AAA Brenda Santizo APRN.ARMATURE STRAIGHTENER [address] [place] [address] [place] [id number] Referral ID Status Reason Start Date Expiration Date V isits Requested Visits Authorized [id number] Closed Auto-Generate d Referral 05/03/2022 06/02/2023 1 1 [facility] for referral (narrative)* Diagnostic Procedure Only (Routine) - Closed Specialty Diagnoses / Procedures Referred By Contac t Referred To Contact MOLECULAR & FUNCTIONAL IMAGING Diagnoses 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 (coronary artery bypass graft) Procedures NM PET/CT CARDIAC PERF REST/STRESS MYOCRD IMG PET PRFUJ BUTCHER'S ASSISTANT STD RST & STRS CNCRNT CT Branden Hickman MD [address] [facility], [place] [place] [address] Molecular & Functional Imaging [address] [place] [address] Referral ID Status Reason Start Date Expiration Date V isits Requested Visits Authorized [id number] Closed Auto-Generate d Referral 06/12/2023 07/11/2024 1 1 [facility] for referral (narrative)* Outpatient Procedure (Routine) - Authorized Specialty Diagnoses / Procedures [facility] To [facility] Diagnoses Chronic obstructive pulmonary disease, unspecified COPD type (HCC) Procedures LUNG VOLUMES Talib Jung APRN.CNP [address] [place] [address] Respiratory [place] [address] [place] [id number] Referral ID Status Reason Start Date Expiration Date Visits Requested Visits Authorized [id number] Authorized Auto-Generat ed Referral 01/09/2024 02/07/2025 1 1 * Outpatient Procedure (Routine) - Authorized Specialty Diagnoses / Procedures [facility] Ref[facility] To Contact [facility] Diagnoses Chronic obstructive pulmonary disease, unspecified COPD type (HCC) Procedures LUNG DIFFUSION CAPACITY (DLCO) DIFFUSING CAPACITY Talib Jung APRN.PRESS ROOM SUPERVISOR [address] [place] [address] [address] Referral ID Status Reason Start Date Expiration Date Visits Requested Visits Authorized [id number] Authorized Auto-Generat ed Referral 01/09/2024 02/07/2025 1 1 * Outpatient Procedure (Routine) - Authorized Specialty Diagnoses / Procedures Referred By Contac t Referred To Contact [facility] Diagnoses Chronic obstructive pulmonary disease, unspecified COPD type (HCC) Procedures SPIROMETRY WITH DILATOR IF OBSTRUCTED BRNCDILAT RSPSE SPMTRY PRE&POST-BRNCDILAT ADMN Talib Jung APRN.CNP [address] [place] [address] Respiratory [place] [id number] Referral ID Status Reason Start Date Expiration Date Visits Requested Visits Authorized [id number] Authorized Auto-Generat ed Referral 01/09/2024 02/07/2025 1 1 [facility] for referral (narrative)* Outpatient Procedure (Routine) - Authorized Specialty Diagnoses / Procedures Referred By Contac t Referred To Contact [facility] Diagnoses SOB (shortness of breath) Procedures ECG COMPLETE ECG ROUTINE ECG W/LEAST 12 LDS W/I&R Branden Hickman MD [address] [facility], [place] [place] [address] [facility] [place] [address] Referral ID Status Reason Start Date Expiration Date Visits Requested Visits Authorized [id number] Authorized Auto-Generat ed Referral 04/25/2024 04/25/2025 1 1 [facility] for referral (narrative)* Outpatient Procedure (Routine) - Authorized Specialty Diagnoses / Procedures Referred By Contac t Referred To Contact [facility] Diagnoses Interstitial pulmonary disease (HCC) Procedures OXIMETRY WITH AMBULATION NONINVASIVE EAR/PULSE OXIMETRY MULTIPLE Millie Espinoza MD [address] [place] [address] [facility]piratory [place] [address] [place] [address] Referral ID Status Reason Start Date Expiration Date Visits Requested Visits Authorized [id number] Authorized Auto-Generat ed Referral 04/30/2024 05/30/2025 1 1 * MRI/CT (Routine) - Authorized Specialty Diagnoses / Procedures Referred By Contac t Referred To Contact CT IMAGING Diagnoses Interstitial pulmonary disease (HCC) Procedures CT CHEST WO IVCON DIAGNOSTIC COMPUTED TOMOGRAPHY THORAX W/O CNTRSMillie Santoro MD [address] [place] [address] Ct Imaging [facility] Referral ID Status Reason Start Date Expiration Date Visits Requested Visits Authorized [id number] Authorized Auto-Generat ed Referral 04/30/2024 05/30/2025 1 1 [facility] for referral (narrative)* Outpatient Procedure (Routine) - Authorized Specialty Diagnoses / Procedures Referred By Contac t Referred To Contact [facility] Diagnoses 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 (coronary artery bypass graft) Essential hypertension Family history of aortic aneurysm Procedures ECHO ECHO TTHRC R-T 2D W/WOM-MODE COMPL SPEC&COLR D Branden Hickman MD [address] [place], [facility] [address] [place] [address] [facility] [place] [address] [place] [address] Referral ID Status Reason Start Date Expiration Date Visits Requested Visits Authorized [id number] Authorized Auto-Generat ed Referral 4 07/05/2025 1 1 [facility] Summary Purpose Family History No Family History Records Found Relationship Condition Age at Onset Recorded Date/T deuce father Coronary artery disease Unknown mother Coronary artery disease Unknown Myocardial infarction Unknown sister Diabetes mellitus Unknown Arthritis Unknown Advance Directives No Advanced Directives Records Found Advance Directive Response Recorded Date/ Time Living Will Yes November 26, 2018 9:28am Power of Volleyball Commentator Yes November 26 9:28am Documents on File Type Date Recorded Patient 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 Layer 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 Expl anation Advance Directive(s) 05/12/2018 9:31 PM Advance Directive(s) 02/28/2018 9:40 AM Advance Directive(s) 01/30/2017 12:46 PM Advance Directive(s) 12/30/2015 11:40 AM Documents on File Type Date Recorded Patient Firebrick Layer Helper Expl anation Advance Directive(s) 01/30/2017 12:46 PM Documents on File Type Date Recorded Patient Firebrick Layer Helper Expl anation Advance Directive(s) 01/30/2017 12:46 PM Advance Directive Response Recorded Date/ Time Living Will No September 05 9:35am Power of Volleyball Commentator No September 05, 2023 9:35am Reason for Referral Specialty Diagnoses / Procedures Referred By Contac t Referred To Contact Cardiology Diagnoses S/P CABG (coronary artery bypass graft) Procedures CONSULT TO CARDIOLOGY OFFICE/OUTPATIENT NEW HIGH MDM 60-74 MINUTES Brenda Santizo, PRODUCT DESIGN SPECIALIST.ARMATURE STRAIGHTENER [address] [place] [address] Referral ID Status Reason Start Date Expiration Date Visits Requested Visits Authorized [id number] Authorized PCP Requested Referral 12/06/2022 12/06/2023 1 1 Specialty Diagnoses / Procedures Referred By Contac t Referred To Contact CT IMAGING Diagnoses Lung nodule Procedures CT CHEST WO IVCON DIAGNOSTIC COMPUTED TOMOGRAPHY THORAX W/O CNTRST Homa Coleman, PRODUCT DESIGN SPECIALIST.PRESS ROOM SUPERVISOR [address] [facility] [address] [place] [address] Ct Imaging [facility] Referral ID Status Reason Start Date Expiration Date Visits Requested Visits Authorized [id number] New Request Auto-Generat ed Referral 06/27/2025 1 1 Specialty Diagnoses / Procedures Referred By Contac t Referred To Contact [facility] Diagnoses 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 Procedures CARDIOVASCULAR MEDICINE OP FOLLOW UP APPT ORDER Branden Hickman MD [address], [place] [place] [address] [facility] [place] [address] [place] [address] Referral ID Status Reason Start Date Expiration Date Visits Requested Visits Authorized [id number] Ref Not Required PCP Requested Referral 04/09/2025 07/08/2025 1 1 Chief Complaint and Reason for Visit Chief Complaint FALL Additional Source Comments (unrecognized sect ion and content) No Status Records FoundNo Status Records FoundNo Status Records Found INFORMATION SOURCE (unrecogn ized section and content) DATE CREATED AUTHOR 03/01/2018 [facility] DATE CREATED AUTHOR AUTHOR'S ORGANIZ ATION 10/14/2023 [facility] DATE CREATED AUTHOR AUTHOR'S ORGANIZ ATION 04/04/2025 [facility] Goals (unrecognized section and content) Goals may [...] or prosecute any alcohol or drug abuse patient.[facility] HospitalIn the event this information is protected by the Federal Confidentiality of Alcohol and Drug Abuse Patient Records regulations: The Federal rules restrict any use of the information to criminally investigate or prosecute any alcohol or drug abuse patient.[facility] HospitalIn the event this information is protected by the Federal Confidentiality of Alcohol and Drug Abuse Patient Records regulations: The Federal rules restrict any use of the information to criminally investigate or prosecute any alcohol or drug abuse patient.[facility] HospitalIn the event this information is protected by the Federal Confidentiality of Alcohol and Drug Abuse Patient Records regulations: The Federal rules restrict any use of the information to criminally investigate or prosecute any alcohol or drug abuse patient.[facility] HospitalIn the event this information is protected by the Federal Confidentiality of Alcohol and Drug Abuse Patient Records regulations: The Federal rules restrict any use of the information to criminally investigate or prosecute any alcohol or drug abuse patient.[facility] HospitalIn the event this information is protected by the Federal Confidentiality of Alcohol and Drug Abuse Patient Records regulations: The Federal rules restrict any use of the information to criminally investigate or prosecute any alcohol or drug abuse patient.[facility] HospitalIn the event this information is protected by the Federal Confidentiality of Alcohol and Drug Abuse Patient Records regulations: The Federal rules restrict any use of the information to criminally investigate or prosecute any alcohol or drug abuse patient.[facility] HospitalIn the event this information is protected by the Federal Confidentiality of Alcohol and Drug Abuse Patient Records regulations: The Federal rules restrict any use of the information to criminally investigate or prosecute any alcohol or drug abuse patient.[facility] HospitalIn the event this information is protected by the Federal Confidentiality of Alcohol and Drug Abuse Patient Records regulations: The Federal rules restrict any use of the information to criminally investigate or prosecute any alcohol or drug abuse patient.[facility] HospitalIn the event this information is protected by the Federal Confidentiality of Alcohol and Drug Abuse Patient Records regulations: The Federal rules restrict any use of the information to criminally investigate or prosecute any alcohol or drug abuse patient.[facility] HospitalIn the event this information is protected by the Federal Confidentiality of Alcohol and Drug Abuse Patient Records regulations: The Federal rules restrict any use of the information to criminally investigate or prosecute any alcohol or drug abuse patient.[facility] HospitalIn the event this information is protected by the Federal Confidentiality of Alcohol and Drug Abuse Patient Records regulations: The Federal rules restrict any use of the information to criminally investigate or prosecute any alcohol or drug abuse patient.[facility] HospitalIn the event this information is protected by the Federal Confidentiality of Alcohol and Drug Abuse Patient Records regulations: The Federal rules restrict any use of the information to criminally investigate or prosecute any alcohol or drug abuse patient.[facility] HospitalIn the event this information is protected by the Federal Confidentiality of Alcohol and Drug Abuse Patient Records regulations: The Federal rules restrict any use of the information to criminally investigate or prosecute any alcohol or drug abuse patient.[facility] HospitalIn the event this information is protected by the Federal Confidentiality of Alcohol and Drug Abuse Patient Records regulations: The Federal rules restrict any use of the information to criminally investigate or prosecute any alcohol or drug abuse patient.[facility] HospitalIn the event this information is protected by the Federal Confidentiality of Alcohol and Drug Abuse Patient Records regulations: The Federal rules restrict any use of the information to criminally investigate or prosecute any alcohol or drug abuse patient.[facility] HospitalIn the event this information is protected by the Federal Confidentiality of Alcohol and Drug Abuse Patient Records regulations: The Federal rules restrict any use of the information to criminally investigate or prosecute any alcohol or drug abuse patient.[facility] HospitalIn the event this information is protected by the Federal Confidentiality of Alcohol and Drug Abuse Patient Records regulations: The Federal rules restrict any use of the information to criminally investigate or prosecute any alcohol or drug abuse patient.[facility] HospitalIn the event this information is protected by the Federal Confidentiality of Alcohol and Drug Abuse Patient Records regulations: The Federal rules restrict any use of the information to criminally investigate or prosecute any alcohol or drug abuse patient.[facility] HospitalIn the event this information is protected by the Federal Confidentiality of Alcohol and Drug Abuse Patient Records regulations: The Federal rules restrict any use of the information to criminally investigate or prosecute any alcohol or drug abuse patient.[facility] HospitalIn the event this information is protected by the Federal Confidentiality of Alcohol and Drug Abuse Patient Records regulations: The Federal rules restrict any use of the information to criminally investigate or prosecute any alcohol or drug abuse patient.[facility] HospitalIn the event this information is protected by the Federal Confidentiality of Alcohol and Drug Abuse Patient Records regulations: The Federal rules restrict any use of the information to criminally investigate or prosecute any alcohol or drug abuse patient.[facility] HospitalIn the event this information is protected by the Federal Confidentiality of Alcohol and Drug Abuse Patient Records regulations: The Federal rules restrict any use of the information to criminally investigate or prosecute any alcohol or drug abuse patient.[facility] HospitalIn the event this information is protected by the Federal Confidentiality of Alcohol and Drug Abuse Patient Records regulations: The Federal rules restrict any use of the information to criminally investigate or prosecute any alcohol or drug abuse patient.[facility] HospitalIn the event this information is protected by the Federal Confidentiality of Alcohol and Drug Abuse Patient Records regulations: The Federal rules restrict any use of the information to criminally investigate or prosecute any alcohol or drug abuse patient.[facility] HospitalIn the event this information is protected by the Federal Confidentiality of Alcohol and Drug Abuse Patient Records regulations: The Federal rules restrict any use of the information to criminally investigate or prosecute any alcohol or drug abuse patient.[facility] HospitalIn the event this information is protected by the Federal Confidentiality of Alcohol and Drug Abuse Patient Records regulations: The Federal rules restrict any use of the information to criminally investigate or prosecute any alcohol or drug abuse patient.[facility] HospitalIn the event this information is protected by the Federal Confidentiality of Alcohol and Drug Abuse Patient Records regulations: The Federal rules restrict any use of the information to criminally investigate or prosecute any alcohol or drug abuse patient.[facility] HospitalIn the event this information is protected by the Federal Confidentiality of Alcohol and Drug Abuse Patient Records regulations: The Federal rules restrict any use of the information to criminally investigate or prosecute any alcohol or drug abuse patient.[facility] HospitalIn the event this information is protected by the Federal Confidentiality of Alcohol and Drug Abuse Patient Records regulations: The Federal rules restrict any use of the information to criminally investigate or prosecute any alcohol or drug abuse patient.[facility] HospitalIn the event this information is protected by the Federal Confidentiality of Alcohol and Drug Abuse Patient Records regulations: The Federal rules restrict any use of the information to criminally investigate or prosecute any alcohol or drug abuse patient.[facility] HospitalIn the event this information is protected by the Federal Confidentiality of Alcohol and Drug Abuse Patient Records regulations: The Federal rules restrict any use of the information to criminally investigate or prosecute any alcohol or drug abuse patient.[facility] HospitalIn the event this information is protected by the Federal Confidentiality of Alcohol and Drug Abuse Patient Records regulations: The Federal rules restrict any use of the information to criminally investigate or prosecute any alcohol or drug abuse patient.[facility] HospitalIn the event this information is protected by the Federal Confidentiality of Alcohol and Drug Abuse Patient Records regulations: The Federal rules restrict any use of the information to criminally investigate or prosecute any alcohol or drug abuse patient.[facility] HospitalIn the event this information is protected by the Federal Confidentiality of Alcohol and Drug Abuse Patient Records regulations: The Federal rules restrict any use of the information to criminally investigate or prosecute any alcohol or drug abuse patient.[facility] HospitalIn the event this information is protected by the Federal Confidentiality of Alcohol and Drug Abuse Patient Records regulations: The Federal rules restrict any use of the information to criminally investigate or prosecute any alcohol or drug abuse patient.[facility] HospitalIn the event this information is protected by the Federal Confidentiality of Alcohol and Drug Abuse Patient Records regulations: The Federal rules restrict any use of the information to criminally investigate or prosecute any alcohol or drug abuse patient.[facility] HospitalIn the event this information is protected by the [facility] Confidentiality of Alcohol and Drug Abuse Patient Records regulations: The Federal rules restrict any use of the information to criminally investigate or prosecute any alcohol or drug abuse patient.[facility] HospitalIn the event this information is protected by the Federal Confidentiality of Alcohol and Drug Abuse Patient Records regulations: The Federal rules restrict any use of the information to criminally investigate or prosecute any alcohol or drug abuse patient.[facility] Care Teams (unrecognized sec tion and content) Retreader Relationship Specialty Start Date End Date Amilcar Tamayo MD [address] [place] [address] PCP - General 12/25/09 Lev Latif [address] [place] [address] Referring Cardiology 06/04/18 Branden Hickman MD [address], [place] [address] [place] [address] Primary Staff Physician Cardiology 10/30/18 Retreader Relationship Specialty Start Date End Date Amilcar Tamayo MD [address] [place] [address] PCP - General 12/25/[address] [facility] [address] Referring Cardiology 06/04/18 Branden Hickman MD [address], [place] [address] [place] [address] Primary Staff Physician Cardiology 10/30/18 Retreader Relationship Specialty Start Date End Date Amilcar Tamayo MD [address] [place] [address] PCP - General 12/25/09 Lev Latif [address] [facility] [place] [address] Referring Cardiology 06/04/18 Branden Hickman MD [address], [place] [address] [place] [address] Primary Staff Physician Cardiology 10/30/18 Retreader Relationship Specialty Start Date End Date Amilcar Tamayo MD [address] [place] [address] PCP - General 12/25/09 Lev Latif [address] [facility] [place] [address] Referring Cardiology 06/04/18 Branden Hickman MD [address], [place] [address] [place] [address] Primary Staff Physician Cardiology 10/30/18 Retreader Relationship Specialty Start Date End Date Amilcar Tamayo MD [address] [place] [address] PCP - General 12/25/09 Lev Latif [address] [facility] [place] [address] Referring Cardiology 06/04/18 Branden Hickman MD [address], [place] [address] [place] [address] Primary Staff Physician Cardiology 10/30/18 Retreader Relationship Specialty Start Date End Date Amilcar Tamayo MD [address] [place] [address] PCP - General 12/25/09 Lev Latif [address] [place] [address] Referring Cardiology 06/04/18 Branden Hickman MD [address], [address] [place] [address] Primary Staff Physician Cardiology 10/30/18 Retreader Relationship Specialty Start Date End Date Amilcar Tamayo MD [address] [place] [address] PCP - General 12/25/09 Lev Latif [address] [place] [address] Referring Cardiology 06/04/18 Branden Hickman MD [address], [place] [address] [place] [address] Primary Staff Physician Cardiology 10/30/18 Retreader Relationship Specialty Start Date End Date Amilcar Tamayo MD [address] [place], [place] 040821 PCP - General 12/25/09 Lev Latif [address] [place] [address] Referring Cardiology 06/04/18 Branden Hickman MD [address], Desk [address] [place], [place] [address] Primary Staff Physician Cardiology 10/30/18 Retreader Relationship Specialty Start Date End Date Amilcar Tamayo MD [address] [place], [place] [address] PCP - General 12/25/09 Lev Latif [address] [place] [address] Referring Cardiology 06/04/18 Branden Hickman MD [address], [place] [address] [place] [address] Primary Staff Physician Cardiology 10/30/18 Retreader Relationship Specialty Start Date End Date Amilcar Tamayo MD [address] [place], [place] 629231 PCP - General 12/25/09 Lev Latif MD [address] [place] [address] Referring Cardiology 06/04/18 Branden Hickman MD [address], [place] [address] [place] [address] Primary Staff Physician Cardiology 10/30/18 Retreader Relationship Specialty Start Date End Date Amilcar Tamayo MD [address] [place] [address] PCP - General 12/25/09 Lev Latif MD [address] [place] [address] Referring Cardiology 06/04/18 Branden Hickman MD [address], [place] [address] [place] [address] Primary Staff Physician Cardiology 10/30/18 Team Status: Active Member Role Status Dates Dr. Amilcar Tamayo MD Family Provider Active Dr. Amilcar Tamayo MD Primary Care Provider Active Team Status: Inactive Member Role Status Dates Dr. Amilcar Tamayo MD Primary Care Provider Active Dr. Demarcus Greene DO Emergency Provider Active Retreader Relationship Specialty Start Date End Date Amilcar Tamayo MD [address] [place] [address] PCP - General 12/25/09 Lev Latif MD [address] [place] [address] Referring Cardiology 06/04/18 Branden Hickman MD [address], Desk [address] [place], [place] [address] Primary Staff Physician Cardiology 10/30/18 Retreader Relationship Specialty Start Date End Date Amilcar Tamayo MD [address] [place] [address] PCP - General 12/25/09 Lev Latif MD [address] [place] [address] Referring Cardiology 06/04/18 Branden Hickman MD [address], [place] [address] [place] [address] Primary Staff Physician Cardiology 10/30/18 Retreader Relationship Specialty Start Date End Date Amilcar Tamayo MD [address] [place] [address] PCP - General 12/25/09 Lev Latif MD [address] [place] [address] Referring Cardiology 06/04/18 Branden Hickman MD [address], [place] [address] [place] [address] Primary Staff Physician Cardiology 10/30/18 Retreader Relationship Specialty Start Date End Date Amilcar Tamayo MD [address] [place] [address] PCP - General 12/25/09 Lev Latif MD [address] [place] [address] Referring Cardiology 06/04/18 Branden Hickman MD [address], [place] [address] [place] [address] Primary Staff Physician Cardiology 10/30/18 Retreader Relationship Specialty Start Date End Date Amilcar Tamayo MD [address] [place] [address] PCP - General 12/25/09 Lev Latif MD [address] [place] [address] Referring Cardiology 06/04/18 Branden Hickman MD [address], [place] [place] [address] Primary Staff Physician Cardiology 10/30/18 Retreader Relationship Specialty Start Date End Date Amilcar Tamayo MD [address] [place] [address] PCP - General 12/25/09 Lev Latif MD [address] [place], [place] 798261 Referring Cardiology 06/04/18 Branden Hickman MD [address], [place]k [address] [place] [address] Primary Staff Physician Cardiology 10/30/18 Retreader Relationship Specialty Start Date End Date Amilcar Tamayo MD [address] [place] [address] PCP - General 12/25/09 Lev Latif MD [address] [place] [address] Referring Cardiology 06/04/18 Branden Hickman MD [address], [place] [address] [place] [address] Primary Staff Physician Cardiology 10/30/18 Retreader Relationship Specialty Start Date End Date Amilcar Tamayo MD [address] [place] [address] PCP - General 12/25/09 Lev Latif MD [address] [place] [address] Referring Cardiology 06/04/18 Branden Hickman MD [address], [place] [address] [place] [address] Primary Staff Physician Cardiology 10/30/18 Retreader Relationship Specialty Start Date End Date Amilcar Tamayo MD [address] [place] [address] PCP - General 12/25/09 Lev Latif MD [address] [place] [address] Referring Cardiology 06/04/18 Branden Hickman MD [address], [place] [place] [address] Primary Staff Physician Cardiology 10/30/18 Retreader Relationship Specialty Start Date End Date Amilcar Tamayo MD [address] [place] [address] PCP - General 12/25/09 Lev Latif MD [address] [place], [place] [address]01 Referring Cardiology 06/04/18 Branden Hickman MD [address], [place] [address] [place] [address] Primary Staff Physician Cardiology 10/30/18 Retreader Relationship Specialty Start Date End Date Amilcar Tamayo MD [address] [place] [address] PCP - General 12/25/09 Lev Latif MD [address] [place], [place] 701821 Referring Cardiology 06/04/18 Branden Hickman MD [address], [place] [address] [place] [address] Primary Staff Physician Cardiology 10/30/18 Retreader Relationship Specialty Start Date End Date Amilcar Tamayo MD [address] [place] [address] PCP - General 12/25/09 Lev Latif MD [address] [place] [address] Referring Cardiology 06/04/18 Branden Hickman MD [address], [place] [address] [place] [address] Primary Staff Physician Cardiology 10/30/18 Retreader Relationship Specialty Start Date End Date Amilcar Tamayo MD [address] [place] [address] PCP - General 12/25/09 Lev Latif MD [address] [place] [address] Referring Cardiology 06/04/18 Branden Hickman MD [address], [place] [address] [place] [address] Primary Staff Physician Cardiology 10/30/18 Retreader Relationship Specialty Start Date End Date Amilcar Tamayo MD [address] [place] [address] PCP - General 12/25/09 Lev Latif MD [address] [place], [place] 050281 Referring Cardiology 06/04/18 Branden Hickman MD [address], [place] [address] [place] [address] Primary Staff Physician Cardiology 10/30/18 Brenda Santizo, PRODUCT DESIGN SPECIALIST.ARMATURE STRAIGHTENER [address] [place] [address] Computer Engineering Professor Internal Medicine 07/22/24 Talib Jung PRODUCT DESIGN SPECIALIST.PRESS ROOM SUPERVISOR [address] [place] [address] Computer Engineering Professor Internal Medicine 07/22/24 Retreader Relationship Specialty Start Date End Date Amilcar Tamayo MD [address] [place] [address] PCP - General 12/25/09 Lev Latif MD [address] [place] [address] Referring Cardiology 06/04/18 Branden Hickman MD [address], [place] [address] [place] [address] Primary Staff Physician Cardiology 10/30/18 Brenda Santizo, MARCY.ARMATURE STRAIGHTENER [address] [place] [address] Computer Engineering Professor Internal Medicine 07/22/24 Talib Jung APRN.PRESS ROOM SUPERVISOR [address] [place] [address] Computer Engineering Professor Internal Medicine 07/22/24 Retreader Relationship Specialty Start Date End Date Amilcar Tamayo MD [address] [place] [address] PCP - General 12/25/09 Lev Latif MD [address] [place] [address] Referring Cardiology 06/04/18 Branden Hickman MD [address], [place] [place] [address] Primary Staff Physician Cardiology 10/30/18 Brenda Santizo, PRODUCT DESIGN SPECIALIST.ARMATURE STRAIGHTENER [address] [place] [address] Computer Engineering Professor Internal Medicine 07/22/24 Talib Jung APRN.PRESS ROOM SUPERVISOR [address] [place] [address] [facility] Internal Medicine 11/05/24 Retreader Relationship Specialty Start Date End Date Amilcar Tamayo MD [address] [place] [address] PCP - General 12/25/09 Lev Latif MD [address] [place], [place] [address] Referring Cardiology 06/04/18 Branden Hickman MD [address] [facility] [place] [address] Primary Staff Physician Cardiology 10/30/18 Brenda Santizo APRN.ARMATURE STRAIGHTENER [address] [place] [address] [facility] Internal Medicine 07/22/24 Talib Jung APRN.PRESS ROOM SUPERVISOR [address] [place] [address] [facility] Internal Medicine 07/22/24 11/01/24 Talib Jung APRN.PRESS ROOM SUPERVISOR [address] [place] [address] [facility] Internal Medicine 11/05/24 Retreader Relationship Specialty Start Date End Date Amilcar Tamayo MD [address] [place] [address] PCP - General 12/25/09 Lev Latif MD [address] [place] [address] Referring Cardiology 06/04/18 Branden Hickman MD [address], [place] [address] [place] [address] Primary Staff Physician Cardiology 10/30/18 Talib Jung APRN.PRESS ROOM SUPERVISOR [address] [place] [address] Computer Engineering Professor Internal Medicine 11/05/24 Brenda Santizo APRN.ARMATURE STRAIGHTENER [address] [place] [address] Computer Engineering Professor Internal Medicine 01/01/25 Retreader Relationship Specialty Start Date End Date Amilcar Tamayo MD [address] [place] [address] PCP - General 12/25/09 Lev Latif MD [address] [place] [address] Referring Cardiology 06/04/18 Branden Hickman MD [address], [place] [address] [place] [address] Primary Staff Physician Cardiology 10/30/18 Talib Jung APRN.PRESS ROOM SUPERVISOR [address] [place] [address] Computer Engineering Professor Internal Medicine 11/05/24 Brenda Santizo APRN.ARMATURE STRAIGHTENER [address] [place] [address] Computer Engineering Professor Internal Medicine 01/01/25 Retreader Relationship Specialty Start Date End Date Amilcar Tamayo MD [address] [place] [address] PCP - General 12/25/09 Lev Latif MD [address] [place] [address] Referring Cardiology 06/04/18 Branden Hickman MD [address], [place] [address] [place] [address] Primary Staff Physician Cardiology 10/30/18 Talib Jung, PRODUCT DESIGN SPECIALIST.PRESS ROOM SUPERVISOR [address] [place] [address] Computer Engineering Professor Internal Medicine 11/05/24 Brenda Santizo, PRODUCT DESIGN SPECIALIST.ARMATURE STRAIGHTENER [address] [place] [address] Computer Engineering Professor Internal Medicine 01/01/25 Retreader Relationship Specialty Start Date End Date Amilcar Tamayo MD [address] [place] [address] PCP - General 12/25/09 Lev Latif MD [address] [place], [place] 348481 Referring Cardiology 06/04/18 Branden Hickman MD [address], [place] [address] [place] [address] Primary Staff Physician Cardiology 10/30/18 Talib Jung APRN.PRESS ROOM SUPERVISOR [address] [place], [place] [address]89[address] [facility] Internal Medicine 11/05/24 Brenda Santizo APRN.ARMATURE STRAIGHTENER [address] [place], [place] [address] [facility] Internal Medicine 01/01/25 Reason for Visit (unrecogniz ed section and content) Reason Comments Follow Up Specialty Diagnoses / Procedures Referred By Lindaac t Referred To Contact Diagnoses 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 Procedures CARDIOVASCULAR MEDICINE OP FOLLOW UP APPT ORDER Branden Hickman MD [address] [email or web address]), [address] [place] [address] Referral ID Status Reason Start Date Expiration Date V isits Requested Visits Authorized [id number] Closed PCP Requested Referral 06/12/2023 06/11/2024 1 [...] REAL TIME SCREEN STUDY AAA Brenda Santizo, MARCY.ARMATURE STRAIGHTENER [address] [place] [address] [facility] [place] [address] Referral ID Status Reason Start Date Expiration Date V isits Requested Visits Authorized [id number] Closed Auto-Generate d Referral 05/03/2022 06/02/2023 1 1 Reason Comments Radiology NM Specialty Diagnoses / Procedures Referred By Daxa t Referred To Contact [facility] Diagnoses 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 (coronary artery bypass graft) Procedures NM PET/CT CARDIAC PERF REST/STRESS MYOCRD IMG PET PRFUJ BUTCHER'S ASSISTANT STD RST & STRS CNCRNT CT Branden Hickman MD [address], [place] [place] [address] [facility] [address] [place] [address] Referral ID Status Reason Start Date Expiration Date V isits Requested Visits Authorized [id number] Closed Auto-Generate d Referral 06/12/2023 07/11/2024 1 1 Reason Comments F/U 6 months Reason Comments Spirometry Specialty Diagnoses / Procedures Referred By Contac t Referred To Contact [facility] Diagnoses Chronic obstructive pulmonary disease, unspecified COPD type (HCC) Procedures SPIROMETRY WITH DILATOR IF OBSTRUCTED BRNCDILAT RSPSE SPMTRY PRE&POST-BRNCDILAT ADMN Talib Jung APRN.PRESS ROOM SUPERVISOR [address] [place] [address] [facility] [place] [address] [place] [address] Referral ID Status Reason Start Date Expiration Date V isits Requested Visits Authorized [id number] Closed Auto-Generate d Referral 01/09/2024 02/07/2025 1 1 Specialty Diagnoses / Procedures Referred By Contac t Referred To [facility] Diagnoses Chronic obstructive pulmonary disease, unspecified COPD type (HCC) Procedures LUNG DIFFUSION CAPACITY (DLCO) DIFFUSING CAPACITY Talib Jung APRN.PRESS ROOM SUPERVISOR [address] [place] [address] [address] Referral ID Status Reason Start Date Expiration Date V isits Requested Visits Authorized [id number] Closed Auto-Generate d Referral 01/09/2024 02/07/2025 1 1 Specialty Diagnoses / Procedures Referred By Contac t Referred To [facility] Diagnoses Chronic obstructive pulmonary disease, unspecified COPD type (HCC) Procedures LUNG VOLUMES Talib Jung APRN.PRESS ROOM SUPERVISOR [address] [place] [address] [address] Referral ID Status Reason Start Date Expiration Date V isits Requested Visits Authorized [id number] Closed Auto-Generate d Referral 01/09/2024 02/07/2025 1 1 Specialty Diagnoses / Procedures Referred By Contac t Referred To Contact [facility] Diagnoses Chronic obstructive pulmonary disease, unspecified COPD type (HCC) Procedures SPIROMETRY WITH DILATOR IF OBSTRUCTED BRNCDILAT RSPSE SPMTRY PRE&POST-BRNCDILAT ADMN Millie Chester MD [address] [place] [address] [address] Referral ID Status Reason Start Date Expiration Date V isits Requested Visits Authorized [id number] Closed Auto-Generate d Referral 01/30/2024 02/28/2025 1 1 Specialty Diagnoses / Procedures Referred By Contac t Referred To Contact [facility] Diagnoses Chronic obstructive pulmonary disease, unspecified COPD type (HCC) Procedures LUNG DIFFUSION CAPACITY (DLCO) DIFFUSING CAPACITY Millie Chester MD [address] [place] [address] [facility] [place] [phone] Referral ID Status Reason Start Date Expiration Date V isits Requested Visits Authorized [id number] Closed Auto-Generate d Referral 01/30/2024 02/28/2025 1 1 Reason Comments New Patient COPD Specialty Diagnoses / Procedures Referred By Contac t Referred To Contact [facility] Diagnoses Interstitial pulmonary disease (HCC) Procedures OXIMETRY WITH AMBULATION NONINVASIVE EAR/PULSE OXIMETRY MULTIPLE Millie Espinoza MD [address] [place] [address] [address] Referral ID Status Reason Start Date Expiration Date V isits Requested Visits Authorized [id number] Closed Auto-Generate d Referral 04/30/2024 05/30/2025 [address] Specialty Diagnoses / Procedures Referred By Contac t Referred To Contact CT IMAGING Diagnoses Interstitial pulmonary disease (HCC) Procedures CT CHEST WO IVCON DIAGNOSTIC COMPUTED TOMOGRAPHY THORAX W/O CNTRST Millie Chester MD [address] [place] [address] Ct [facility] [place] [address] Referral ID Status Reason Start Date Expiration Date V isits Requested Visits Authorized [id number] Closed Auto-Generate d Referral 04/30/2024 05/30/2025 1 1 Reason Comments Established Patient Follow-Up Reason Comments F/U 6 months Reason Comments Established Patient 3 month follow up IP F Reason Onset Date Comments Refill Request 09/17/2024 Reason Comments Refill Request Specialty Diagnoses / Procedures Referred By Contac t Referred To Contact [facility] Diagnoses IPF (idiopathic pulmonary fibrosis) ([facility]) Procedures SPIROMETRY WITH DILATOR IF OBSTRUCTED BRNCDILAT RSPSE SPMTRY PRE&POST-BRNCDILAT ADMN Homa Coleman APRN.PRESS ROOM SUPERVISOR [address] [place] [address] Phone: tel: fax: [facility] [place] [phone] Referral ID Status Reason Start Date Expiration Date V isits Requested Visits Authorized [id number] Closed Auto-Generate d Referral 12/31/2024 01/30/2026 1 1 Specialty Diagnoses / Procedures Referred By Contac t Referred To Contact [facility] Diagnoses IPF (idiopathic pulmonary fibrosis) ([facility] Procedures LUNG VOLUMES Homa Coleman APRN.PRESS ROOM SUPERVISOR [address] [place] [address] Phone: tel: fax: [address] [phone] Referral ID Status Reason Start Date Expiration Date V isits Requested Visits Authorized [id number] Closed Auto-Generate d Referral 12/31/2024 01/30/2026 1 1 Specialty Diagnoses / Procedures Referred By Contac t Referred To Contact RESPIRATORY FLANAGAN Diagnoses IPF (idiopathic pulmonary fibrosis) ([facility]IN [facility]) Procedures LUNG DIFFUSION CAPACITY (DLCO) DIFFUSING CAPACITY Homa Coleman APRN.PRESS ROOM SUPERVISOR [address] [place] [address] Phone: tel: fax: Respiratory [address] [address] Referral ID Status Reason Start Date Expiration Date V isits Requested Visits Authorized [id number] Closed Auto-Generate d Referral 12/31/2024 01/30/2026 1 1 Reason Comments F/U 6 Month Reason Onset Date Comments Media Manager- Other 04/02/2025 Chart Review FOR RECORDS PERTAINING [...] BE BASED ON THE PRIMARY CLINICAL RECORDS. [facility]. provides no warranty or guarantee of the accuracy or completeness of information in this document.
--- NOTE | 2025-04-27 20:58 | VDLE_ITS ---
Reason For Study Reason For Study: Elevated D-Dimer, PE's RIGHT LEFT GSV is normal. GSV is normal. CFV is compressible, spontaneous, phasic, competent CFV is compressible, spontaneous, phasic, competent, and demonstrates normal augmentation. and demonstrates normal augmentation. FV is compressible, spontaneous, phasic, competent FV is compressible, spontaneous, phasic, competent and demonstrates normal augmentation. and demonstrates normal augmentation. POP V is compressible, spontaneous, and phasic. POP V is compressible, spontaneous, phasic, competent Rt T/P Trunk, Rt PTV, and Rt PeroV are DILATED and and demonstrates normal augmentation. NON COMPRESSIBLE consistent with acute DVT. T/P Trunk is compressible. Procedure PTV is compressible. This is a venous duplex using B-mode, color flow and LT PerV is compressible. spectral Doppler. Exam performed portable in patient room. A preliminary report was called and/or faxed to Amisha ANTHONY. VL/Venous Duplex US - Dale Extrem Interpretation Summary Acute deep vein thrombosis is noted in the right tibio-peroneal trunk. Acute de ep vein thrombosis is noted in the right posterior tibial vein. Acute deep vein thrombosis is noted in the right peronea l vein. The remainder of the right lower extremity deep venous system is patent and compressible. Deep veins of the left lower extremity are patent and compressible segmentally. There is no evidence of left lower extremity deep vei n thrombosis. Valvular competence appears intact within the proximal deep venous systems bilaterally. The great saphenous veins appear bilaterally patent and compressible segmentally. Ordering Physician: Jesus Novak Referring Physician: Becky Stephen Performed By: Anay Jones, MADALYN, RVT
[2025-04-27 21:08] LABS: Troponin T High Sens 4 HR 29 ng/L (<=22)
[2025-04-27 21:32] LABS: Magnesium 1.9 mg/dL (1.5-2.2)
[2025-04-27] MEDS: 0.9% Normal Saline (1000mL) 1,000 ML 70 ML IV (22:11)
[2025-04-27] MEDS: Piperacil/Tazobactam 3.375 GM in 0.9% Normal Saline (50mL MB+) 50 ML IV (22:11)
[2025-04-27] MEDS: Metoprolol(XL)Succ 25 MG Tablet PO (22:12)
[2025-04-27] MEDS: Lactobacillis Acidophilus 1 CAP PO (22:12)
[2025-04-27 22:36] LABS: Mucous, Urine 0 SEEN /hpf (<or=2+); Red Blood Cells-Urine 0 SEEN /hpf (0-5); Squamous Epithelial Cells - UA 0 SEEN /hpf (0-5)
[2025-04-27 22:39] LABS: Color, Urine Yellow (Yellow); Glucose, Dipstick Normal (Normal); Ketone-Dipstick Negative (Negative); Leukocyte Esterase-Dipstick Negative /ul (Negative); Nitrite-Dipstick Negative (Negative); Occult Blood-Urine Negative /ul (Negative); Protein-Dipstick 15 mg/dl (Negative); Specific Gravity, Urine 1.005 (1.002-1.030); Urine Bilirubin Dipstick Negative (Negative)
[2025-04-28] VITALS (7 sets, daily range): BP systolic 104–141; BP diastolic 59–80; PULSE 57–81; RESP 14–18; TEMP 36.3–37.1; O2SAT 93–100; BMI 21.6
[2025-04-28 03:22] LABS: Hematocrit 36.8 % (40-54); Hemoglobin 12.4 g/dL (13.0-16.5); Immature Granulocytes Count 0.010 X10^3/uL (0.0-0.0); Mean Corp Hgb Conc 33.7 g/dL (32-36); Mean Corpuscular Volume 92.0 fL (80-94); Mean Platelet Vol. 11.1 fl (6.2-12.0); NRBC Flagged by Analyzer 0 % (0-5); POSITIVE COUNT YES; Platelet Count 96 K/mm3 (150-450); RBC Distribution Width CV 13.6 % (11.6-14.6); RBC Distribution Width SD 46.4 fl (35.1-43.9); Red Blood Count 4.00 M/mm3 (4.6-6.2); White Blood Count 7.1 K/mm3 (4.4-11.0)
[2025-04-28 03:24] LABS: Differential Indicated SCAN CRITERIA MET
[2025-04-28 03:49] LABS: AST(SGOT) 41 U/L (<=37); Alanine Aminotransfer ALT/SGPT 39 U/L (<=46); Albumin, Serum 3.3 g/dL (3.4-4.8); Alkaline Phosphatase 38 U/L (40-129); Anion Gap 7 (5-15); BUN 12 mg/dL (4-19); BUN/Creat Ratio 14.4 RATIO (10-20); Calcium,Total 8.4 mg/dL (7.6-11.0); Carbon Dioxide 25.5 mmol/L (21.0-32.0); Chloride 108 mmol/L (98-108); Estimated Creatinine Clearance 71.48 ml/min (50-250); Globulin 2.3 g/dL (2.2-4.2); Glucose 100 mg/dL (70-99); Potassium 4.1 mmol/L (3.3-5.1)
[2025-04-28 03:53] LABS: Partial Thromboplast Time 122.8 Seconds (24.1-36.2)
[2025-04-28 03:55] LABS: Differential Comment SCANNED
[2025-04-28 04:10] LABS: Cholesterol 123 mg/dL (<=200); Low Density Lipoprotein Calc. 65 mg/dL; Triglycerides 73 mg/dL; Very Low Density Lipoprotein 15 mg/dL (5-40); cholesterol:hdl ratio screen 2.86
[2025-04-28] MEDS: Piperacil/Tazobactam 3.375 GM in 0.9% Normal Saline (50mL MB+) 50 ML IV ×3 (05:33→22:05)
--- NOTE | 2025-04-28 10:18 | PN.HOSP_ITS ---
Reason for Visit Chief Complaint: SOB. Subjective Subjective Patient is an 79-year-old gentleman who presented with exertional dyspnea. Was found to have elevated D-dimer and subsequent CTA came back positive for Pulmonary embolism Objective Data Objective Data Vital Signs: Vital Signs Temp Pulse Resp BP Pulse Ox O2 Del Method O2 Flow Rate 98.3 F 57 L 16 104/59 L 93 Room Air 2 04/28/25 09:06 04/28/25 09:06 04/28/25 09:27 04/28/25 09:06 04/28/25 09:27 04/28/25 09:27 04/28/25 09:06 Oxygen Flow Rate (L/min) 2 Oxygen Delivery Method Room Air Weight: 72.4 kg Body Mass Index (BMI) 21.6 Intake & Output: Intake and Output for Last 24 Hours 04/26/25 04/27/25 04/28/25 23:59 23:59 23:59 Intake Total 173.00 / 173.00 Output Total 300 / 300 Balance -127.00 / -127.00 Lab / Micro Data 04/28/25 03:07 04/28/25 03:07 Labs: Laboratory Results - last 24 hr 04/27/25 16:32: WBC 9.0, RBC 4.59 L, Hgb 14.2, Hct 42.8, MCV 93.2, MCH 30.9, MCHC 33.2, RDW Std Deviation 46.6 H, RDW Coeff of Tracy 13.6, Plt Count 111 L, MPV 11.8, Immature Gran % (Auto) 0.200, Neut % (Auto) 55.3, Lymph % (Auto) 31.0, Amelia % (Auto) 9.5, Eos % (Auto) 3.6, Baso % (Auto) 0.4, Absolute Neuts (auto) 5.0, Absolute Lymphs (auto) 2.79, Nucleated RBC % 0, PT 14.1, INR 1.1, APTT 26.5, D-Dimer Quant (PE/DVT) 12.60 H*, Sodium 139, Potassium 3.7, Chloride 103, Carbon Dioxide 23.6, Anion Gap 12, BUN 17, Creatinine 0.82, Estim Creat Clear Calc 75.45, Est GFR (MDRD) Non-Af 88, BUN/Creatinine Ratio 20.9 H, Glucose 112 H , Calcium 8.9, Troponin T High Sens 21, NT pro BNP II 223 04/27/25 16:56: Magnesium 1.9, NT pro BNP II Cancelled 04/27/25 18:30: Troponin T Hi Sens 2 Hr 25 H 04/27/25 20:25: Troponin T Hi Sens 4Hr 29 H 04/27/25 20:50: Blood Type A POSITIVE, Antibody Screen NEGATIVE 04/27/25 22:20: Urine Color Yellow, Urine Clarity Clear, Urine pH 7.0, Ur Specific Chassell 1.005, Urine Protein 15 H, Urine Glucose (UA) Normal, Urine Ketones Negative, Urine Occult Blood Negative, Urine Nitrite Negative, Urine Bilirubin Negative, Urine Urobilinogen Normal, Ur Leukocyte Esterase Negative, Urine RBC 0 SEEN, Urine WBC 0 SEEN, Ur Squamous Epith Cells 0 SEEN, Urine Bacteria 0 SEEN, Urine Mucus 0 SEEN 04/28/25 03:07: WBC 7.1, RBC 4.00 L, Hgb 12.4 L, Hct 36.8 L, MCV 92.0, MCH 31.0, MCHC 33.7, RDW Std Deviation 46.4 H, RDW Coeff of Tracy 13.6, Plt Count 96 L, MPV 11.1, Immature Gran % (Auto) 0.100, Neut % (Auto) 55.9, Lymph % (Auto) 29.0, M les % (Auto) 10.5 H, Eos % (Auto) 3.8, Baso % (Auto) 0.7, Absolute Neuts (auto) 4.0, Absolute Lymphs (auto) 2.05, Nucleated RBC % 0, Differential Comment SCANNED, Platelet Estimate MOD DEC, APTT 122.8 H*, Sodium 140, Potassium 4.1, Chloride 108, Carbon Dioxide 25.5, Anion Gap 7, BUN 12, Creatinine 0.83, Estim Creat Clear Calc 71.48, Est GFR (MDRD) Non-Af 88, BUN/Creatinine Ratio 14.4, G lucose 100 H, Calcium 8.4, Phosphorus 3.2, Total Bilirubin 0.85, AST 41 H, ALT 39, Alkaline Phosphatase 38 L, Total Protein 5.6 L, Albumin 3.3 L, Globulin 2.3, Albumin/Globulin Ratio 1.4, Triglycerides 73, Cholesterol 123, LDL Cholesterol, Calc 65, VLDL Cholesterol 15, HDL Cholesterol 43, Cholesterol/HDL Ratio 2.86, TSH 2.730 Radiography Diagnostic Testing: Radiology Impression Chest X-Ray 04/27/25 16:48 IMPRESSION: 1. Small bibasilar opacities, likely atelectasis or infiltrates. 2. Bilateral interstitial coarsening, suggesting interstitial lung disease. Reading Location: [facility] Chest CTA 04/27/25 18:33 IMPRESSION: 1. Acute pulmonary emboli bilaterally with saddle emboli in the distal right and left pulmonary arteries extending into segmental and subsegmental pulmonary arteries bilaterally. Moderate clot burden. Evidence of right heart strain. 2. Usual interstitial pneumonia (UIP) pattern of interstitial lung disease. 3. Scattered tree-in-bud nodules bilaterally, can be seen with mucoid impaction or endobronchial spread of infection. Red Alert: Acute pulmonary emboli bilaterally with saddle emboli in the distal right and left pulmonary arteries extending into segmental and subsegmental pulmonary arteries bilaterally. Moderate clot burden. Evidence of right heart strain. The critical findings in the findings and impression above were relayed directly by me by telephone to Dr. Moctezuma On 04/27/2025 at 4:59 pm [place] standard time with readback verification. Reading Location: [facility] Rhythm Strip Rhythm Strip: Sinus Tach Rate: 104 Ectopy: None Physical Exam Narrative GENERAL: cooperative HEENT: Atraumatic; normocephalic EYES; Anicteric, Normal Conjunctiva NECK; supple, normal thyroid, RESPIRATORY: Diminished to auscultation CARDIOVASCULAR: Regular S1 S2, GI: soft, normoactive bowel sounds, : No Renal angle tenderness; EXTREMITIES: No edema, no clubbing, MUSCULOSKELETAL: no muscle wasting NEURO: Awake; no lateralizing signs. SKIN: No Rash PSYCH; Flat affect Assessment & Plan Assessment/Plan (1) Saddle embolism of pulmonary artery: (2) Thrombocytopenia: (3) Bilateral pulmonary embolism: PLAN: Plan Patient is an 79-year-old gentleman who presented with exertional dyspnea. Was found to have elevated D-dimer and subsequent CTA came back positive for Pulmonary embolism 1. Acute VTE (pulmonary embolism with acute cor pulmonale as well as right lower extremity DVT) ? CTA did show Acute pulmonary emboli bilaterally with saddle emboli in the distal right and left pulmonary arteries extending into segmental and subsegmental pulmonary arteries bilaterally. Moderate clot burden. Evidence of right heart strain. Venous duplex did show DVT involving the right lower extremity from knee to ankle. Patient admitted to a monitored bedStarted on weight-based heparin protocol 2D echo ordered as part of patient's evaluation. 2. Hypertension ? Blood pressure controlled, home medications continued with dose adjustment as needed 3. Dyslipidemia ?Patient is on statin therapy, continued at home dose 4. GERD ?patient is on PPI 5. Coronary artery disease ? With previous PCI as well as CABG patient remains on guideline directed medical therapy 6. History of cardiac arrhythmias ? PSVT/PVC patient remains on metoprolol 7. Pulmonary fibrosis ? Patient is on on nintedanib (has thromboembolism as a side effect medication subsequently held. Plans for patient to discuss with primary product marketing director at [facility] for alternative treatment consideration 8. Thrombocytopenia ? Complicating patient's care side effect of nintedanib which is currently being held Time spent in the patient's overall evaluation,decision-making process, review of diagnostic data, adjustment of management, discussion with other providers, nursing nursing and ancillary staff involved in patient's care documentation, 55 Minutes Charges/Coding Visit Charges Inpatient E&M: 08066 [facility] Hosp L3
--- NOTE | 2025-04-28 11:07 | CASEMGMT ---
AGBRIELLE SANTIAGO Assessment Face to Face with patient for initial transition planning/care coordination assessment. GABRIELLE SANTIAGO introduced self and role at [facility], pt voices understanding. Pt is A&Ox4 and is resting comfortably in bed and is calm. Care providers, pharmacy, and demographics verified. Admitting dx: BL PE's with Right Heart Strain LACE Strata: 1 PCP: Becky Cabral Specialists: Daniel Garcia (Pulmonary), Ernestine (Cardio [facility]) Preferred Pharmacy: [facility] Insurance: [employer] A/B, [employer] Commercial Prescription Benefit: Yes LNOK: Lilliam Miranda (Sister) Living Arrangements: Pt lives alone in a single story home with a basement with 2 steps to enter. ADLs/IADLs: Indep. 6-Click score is 24.Pt states that he is very active and walks 4 miles per day Transportation: Self, sister, JULIANNE DME: pox, BP Machine, grab bars. Pt may qualify for home oxygen use. A verbal list of local in-network DME companies were provided to the pt at this time. Pt prefers [facility] HHC/SNF: Denies hx or needs Pt?s goal: Home Plan: Anticipate DC home once medically ready. Follow vascular consult and echo results. Pt states that he takes Plavix at home. CM to follow. Pt denies the need for HH, OP Tx, or any further resources or needs. Pt states that he feels safe returning home alone once medically ready and denies further questions or concerns. CM to follow for anticoagulant and/ or oxygen needs. Megan Aj RN, CM
[2025-04-28] MEDS: Lactobacillis Acidophilus 1 CAP PO ×4 (11:25→22:05)
[2025-04-28 12:08] LABS: Partial Thromboplast Time 44.0 Seconds (24.1-36.2)
[2025-04-28 19:24] LABS: Partial Thromboplast Time 49.1 Seconds (24.1-36.2)
[2025-04-28] MEDS: Metoprolol(XL)Succ 25 MG Tablet PO (22:05)
[2025-04-29] VITALS (7 sets, daily range): BP systolic 104–136; BP diastolic 57–78; PULSE 55–76; RESP 16–17; TEMP 36.8–37.1; O2SAT 94–97; BMI 21.0
[2025-04-29 03:10] LABS: Partial Thromboplast Time 62.5 Seconds (24.1-36.2)
[2025-04-29] MEDS: HEPARIN/D5w 25,000 UNITS 25,000 UNITS/250 ML IV.SOLN. 8.1 UNITS CONT INF (03:52)
[2025-04-29] MEDS: Piperacil/Tazobactam 3.375 GM in 0.9% Normal Saline (50mL MB+) 50 ML IV (05:53)
[2025-04-29 09:01] LABS: Partial Thromboplast Time 60.3 Seconds (24.1-36.2)
--- NOTE | 2025-04-29 09:04 | PCM.PN.HOSP ---
Reason for Visit Chief Complaint: SOB. Subjective Subjective Patient seen admitted to improvement in his breathing status. 2D echo performed day prior results as below. Plan is for patient to be transition from heparin to apixaban Objective Data Objective Data Vital Signs: Vital Signs Temp Pulse Resp BP Pulse Ox O2 Del Method O2 Flow Rate 98.8 F 55 L 16 111/66 96 Room Air 2 04/29/25 03:50 04/29/25 03:50 04/29/25 03:50 04/29/25 03:50 04/29/25 03:50 04/29/25 03:50 04/28/25 09:06 Oxygen Flow Rate (L/min) 2 Oxygen Delivery Method Room Air Weight: 70.4 kg Body Mass Index (BMI) 21.0 Intake & Output: Intake and Output for Last 24 Hours 04/27/25 04/28/25 04/29/25 23:59 23:59 23:59 Intake Total 2505.52 / 2505.52 115.07 / 115.07 Output Total 300 / 300 Balance 2205.52 / 2205.52 115.07 / 115.07 Lab / Micro Data 04/28/25 03:07 04/28/25 03:07 Labs: Laboratory Results - last 24 hr 04/28/25 11:38: APTT 44.0 H 04/28/25 18:51: APTT 49.1 H 04/29/25 02:02: APTT 62.5 H 04/29/25 08:05: APTT 60.3 H Radiography Diagnostic Testing: Radiology Impression Echocardiogram 04/27/25 20:45 Interpretation Summary The left ventricular ejection fraction is 55 %. Stage 1 diastolic dysfunction. Mild concentric left ventricular hypertrophy. Mild (1+) tricuspid valve insufficiency. Mild focal aortic valve thickening. The left atrium is severely enlarged. The right atrium is mildly enlarged. Ordering Physician: Jesus Novak Referring Physician: Becky Cabral M.D. Performed By: Christina Herrmann RCS Venous Doppler Study 04/27/25 20:58 Interpretation Summary Acute deep vein thrombosis is noted in the right tibio-peroneal trunk. Acute deep vein thrombosis is noted in the right posterior tibial vein. Acute deep vein thrombosis is noted in the right peroneal vein. The remainder of the right lower extremity deep venous system is patent and compressible. Deep veins of the left lower extremity are patent and compressible segmentally. There is no evidence of left lower extremity deep vein thrombosis. Valvular competence appears intact within the proximal deep venous systems bilaterally. The great saphenous veins appear bilaterally patent and compressible segmentally. Ordering Physician: Jesus Novak Referring Physician: Becky Stephen Performed By: Anay Jones, MADALYN, RVT Rhythm Strip Rhythm Strip: Sinus Tach Rate: 104 Ectopy: None Physical Exam Narrative GENERAL: cooperative HEENT: Atraumatic; normocephalic EYES; Anicteric, Normal Conjunctiva NECK; supple, normal thyroid, RESPIRATORY: Diminished to auscultation CARDIOVASCULAR: Regular S1 S2, GI: soft, normoactive bowel sounds, : No Renal angle tenderness; EXTREMITIES: No edema, no clubbing, MUSCULOSKELETAL: no muscle wasting NEURO: Awake; no lateralizing signs. SKIN: No Rash PSYCH; Flat affect Assessment & Plan Assessment/Plan (1) Saddle embolism of pulmonary artery: (2) Thrombocytopenia: (3) Bilateral pulmonary embolism: PLAN: Plan Patient is an 79-year-old gentleman who presented with exertional dyspnea. Was found to have elevated D-dimer and subsequent CTA came back positive for Pulmonary embolism 1. Acute VTE (pulmonary embolism with acute cor pulmonale as well as right lower extremity DVT) ? CTA did show Acute pulmonary emboli bilaterally with saddle emboli in the distal right and left pulmonary arteries extending into segmental and subsegmental pulmonary arteries bilaterally. Moderate clot burden. Evidence of right heart strain. Venous duplex did show DVT involving the right lower extremity from knee to ankle. Patient admitted to a monitored bedStarted on weight-based heparin protocol 2D echo ordered as part of patient's evaluation. ?04/29/2025; 2D echo the day prior did show The left ventricular ejection fraction is 55 %. Stage 1 diastolic dysfunction. Mild concentric left ventricular hypertrophy. Mild (1+) tricuspid valve insufficiency. Mild focal aortic valve thickening. The left atrium is severely enlarged. The right atrium is mildly enlarged. ?Plan is to transition patient from heparin to apixaban 2. Hypertension ? Blood pressure controlled, home medications continued with dose adjustment as needed 3. Dyslipidemia ?Patient is on statin therapy, continued at home dose 4. GERD ?patient is on PPI 5. Coronary artery disease ? With previous PCI as well as CABG patient remains on guideline directed medical therapy 6. History of cardiac arrhythmias ? PSVT/PVC patient remains on metoprolol 7. Pulmonary fibrosis ? Patient is on on nintedanib (has thromboembolism as a side effect medication subsequently held. Plans for patient to discuss with primary cigar tobacco rehandler at [facility] for alternative treatment consideration 8. Thrombocytopenia ? Complicating patient's care side effect of nintedanib which is currently being held Time spent in the patient's overall evaluation,decision-making process, review of diagnostic data, adjustment of management, discussion with other providers, nursing nursing and ancillary staff involved in patient's care documentation, 38 Minutes Charges/Coding Visit Charges Inpatient E&M: 26971 [facility] Hosp L2
[2025-04-29 09:50] LABS: Hematocrit 40.7 % (40-54); Hemoglobin 13.5 g/dL (13.0-16.5); Immature Granulocytes Count 0.020 X10^3/uL (0.0-0.0); Mean Corp Hgb Conc 33.2 g/dL (32-36); Mean Corpuscular Volume 92.9 fL (80-94); Mean Platelet Vol. 11.1 fl (6.2-12.0); NRBC Flagged by Analyzer 0 % (0-5); Platelet Count 106 K/mm3 (150-450); RBC Distribution Width CV 13.9 % (11.6-14.6); RBC Distribution Width SD 47.8 fl (35.1-43.9); Red Blood Count 4.38 M/mm3 (4.6-6.2); White Blood Count 6.6 K/mm3 (4.4-11.0)
[2025-04-29] MEDS: 0.9% Saline Lock 10 ML Syringe IV ×2 (10:29→15:06)
[2025-04-29] MEDS: APIXABAN 5 MG TABLET 10 MG PO ×2 (10:29→21:14)
[2025-04-29] MEDS: Lactobacillis Acidophilus 1 CAP PO ×4 (10:29→21:14)
[2025-04-29 10:34] LABS: Anion Gap 9 (5-15); BUN 10 mg/dL (4-19); BUN/Creat Ratio 11.6 RATIO (10-20); Calcium,Total 8.8 mg/dL (7.6-11.0); Carbon Dioxide 23.8 mmol/L (21.0-32.0); Chloride 107 mmol/L (98-108); Estimated Creatinine Clearance 68.68 ml/min (50-250); Glucose 112 mg/dL (70-99); Magnesium 2.0 mg/dL (1.5-2.2); Potassium 3.9 mmol/L (3.3-5.1)
[2025-04-29] MEDS: Metoprolol(XL)Succ 25 MG Tablet PO (21:14)
[2025-04-29] MEDS: Polyethylene Glycol 3350 17 GM PACKET PO (23:42)
[2025-04-30 01:08] VITALS: BMI 21.1
[2025-04-30 01:25] VITALS: RESP 16
[2025-04-30 03:30] VITALS: BP 108/60; PULSE 55; RESP 16; TEMP 36.8; O2SAT 98
[2025-04-30 06:01] LABS: Hematocrit 38.4 % (40-54); Hemoglobin 12.8 g/dL (13.0-16.5); Immature Granulocytes Count 0.010 X10^3/uL (0.0-0.0); Mean Corp Hgb Conc 33.3 g/dL (32-36); Mean Corpuscular Volume 92.8 fL (80-94); Mean Platelet Vol. 11.5 fl (6.2-12.0); NRBC Flagged by Analyzer 0 % (0-5); Platelet Count 107 K/mm3 (150-450); RBC Distribution Width CV 13.9 % (11.6-14.6); RBC Distribution Width SD 47.5 fl (35.1-43.9); Red Blood Count 4.14 M/mm3 (4.6-6.2); White Blood Count 6.4 K/mm3 (4.4-11.0)
[2025-04-30 06:09] LABS: Anion Gap 9 (5-15); BUN 9 mg/dL (4-19); BUN/Creat Ratio 11.6 RATIO (10-20); Calcium,Total 8.6 mg/dL (7.6-11.0); Carbon Dioxide 24.4 mmol/L (21.0-32.0); Chloride 108 mmol/L (98-108); Estimated Creatinine Clearance 71.52 ml/min (50-250); Glucose 93 mg/dL (70-99); Potassium 3.8 mmol/L (3.3-5.1)
--- NOTE | 2025-04-30 06:58 | PCM.DC.SUM ---
Providers Date of Admission: 04/27/25 Date of Discharge: 04/30/25 Primary Care Physician: Dr. Becky Cabral MD Consultations 04/27/25 20:57 Consult: Vascular Surgery Routine Consulting Provider: Umair Robbins Reason for Consult: Bilateral PE with Right Heart Strain. EMERGENT Consult: No MD Notified: Yes Date Notified: 04/27/25 Time Notified: 20:41 Method of Notification: ED Physician Initiated Reason For Visit: BILATERAL PE'S WITH RIGHT HEART STRAIN AND Diagnosis Discharge Diagnosis (1) Saddle embolism of pulmonary artery: Status: Acute Code(s): I26.92 - Saddle embolus of pulmonary artery without acute cor pulmonale (2) Thrombocytopenia: Status: Acute Code(s): D69.6 - Thrombocytopenia, unspecified (3) Bilateral pulmonary embolism: Status: Acute Code(s): I26.99 - Other pulmonary embolism without acute cor pulmonale Plan Patient is an 79-year-old gentleman who presented with exertional dyspnea. Was found to have elevated D-dimer and subsequent CTA came back positive for Pulmonary embolism 1. Acute VTE (pulmonary embolism with acute cor pulmonale as well as right lower extremity DVT) ? CTA did show Acute pulmonary emboli bilaterally with saddle emboli in the distal right and left pulmonary arteries extending into segmental and subsegmental pulmonary arteries bilaterally. Moderate clot burden. Evidence of right heart strain. Venous duplex did show DVT involving the right lower extremity from knee to ankle. Patient admitted to a monitored bedStarted on weight-based heparin protocol 2D echo ordered as part of patient's evaluation. ?04/29/2025; 2D echo the day prior did show The left ventricular ejection fraction is 55 %. Stage 1 diastolic dysfunction. Mild concentric left ventricular hypertrophy. Mild (1+) tricuspid valve insufficiency. Mild focal aortic valve thickening. The left atrium is severely enlarged. The right atrium is mildly enlarged. ?Plan is to transition patient from heparin to apixaban ? Patient was assessed for home oxygen prior to discharge patient did not qualify. Patient instructed to call his primary compensation programs manager in [place] and schedule a follow-up for next week 2. Hypertension ? Blood pressure controlled, home medications continued with dose adjustment as needed 3. Dyslipidemia ?Patient is on statin therapy, continued at home dose 4. GERD ?patient is on PPI 5. Coronary artery disease ? With previous PCI as well as CABG patient remains on guideline directed medical therapy 6. History of cardiac arrhythmias ? PSVT/PVC patient remains on metoprolol 7. Pulmonary fibrosis ? Patient is on on nintedanib (has thromboembolism as a side effect medication subsequently held. Plans for patient to discuss with primary compensation programs manager at [facility] for alternative treatment consideration 8. Thrombocytopenia ? Complicating patient's care side effect of nintedanib which is currently being held Time spent in the patient's overall evaluation,decision-making process, review of diagnostic data, adjustment of management, discussion with other providers, nursing nursing and ancillary staff involved in patient's care documentation, 38 Minutes Medications at Discharge Home Medications coenzyme Q10 100 mg capsule 100 mg PO DAILY 11/23/17 lutein 6 mg capsule 6 mg PO DAILY 11/27/17 clopidogrel 75 mg tablet 75 mg PO DAILY #90 tabs 08/29/22 ezetimibe 10 mg tablet 10 mg PO DAILY #90 tabs 08/29/22 metoprolol succinate 25 mg tablet,extended release 24 hr 25 mg PO QHS #90 tabs 08/29/22 pantoprazole 20 mg tablet,delayed release 20 mg PO DAILY 10/13/22 nitroglycerin 0.4 mg sublingual tablet (Nitrostat) 0.4 mg sublingual Q5-15M PRN Chest pain #25 tabs 04/18/23 rosuvastatin 40 mg tablet 40 mg PO DAILY 09/07/23 nintedanib 150 mg capsule (Ofev) 150 mg PO Q12H 04/27/25 apixaban 5 mg (74 tabs) tablets in a dose pack (Eliquis DVT-PE Treat 30D Start) 5 mg PO BID 1 month #74 tabs 04/30/25 Physical Exam Narrative GENERAL: cooperative HEENT: Atraumatic; normocephalic EYES; Anicteric, Normal Conjunctiva NECK; supple, normal thyroid, RESPIRATORY: Diminished to auscultation CARDIOVASCULAR: Regular S1 S2, GI: soft, normoactive bowel sounds, : No Renal angle tenderness; EXTREMITIES: No edema, no clubbing, MUSCULOSKELETAL: no muscle wasting NEURO: Awake; no lateralizing signs. SKIN: No Rash PSYCH; Flat affect Weight / BMI Weight Weight: 70.7 kg Body Mass Index (BMI) 21.1 ABG / Lab / Microbiology Data 04/30/25 05:25 04/30/25 05:25 Laboratory: Laboratory Results - last 24 hr 04/29/25 09:32: WBC 6.6, RBC 4.38 L, Hgb 13.5, Hct 40.7, MCV 92.9, MCH 30.8, MCHC 33.2, RDW Std Deviation 47.8 H, RDW Coeff of Tracy 13.9, Plt Count 106 L, MPV 11.1, Immature Gran % (Auto) 0.300, Neut % (Auto) 55.9, Lymph % (Auto) 23.8, [place] % (Auto) 9.4, Eos % (Auto) 9.8 H, Baso % (Auto) 0.8, Absolute Neuts (auto) 3.7, Absolute Lymphs (auto) 1.58, Nucleated RBC % 0, Sodium 140, Potassium 3.9, Chloride 107, Carbon Dioxide 23.8, Anion Gap 9, BUN 10, Creatinine 0.84, Estim Creat Clear Calc 68.68, Est GFR (MDRD) Non-Af 88, BUN/Creatinine Ratio 11.6, Glucose 112 H, Calcium 8.8, Phosphorus 2.9, Magnesium 2.0 04/30/25 05:25: WBC 6.4, RBC 4.14 L, Hgb 12.8 L, Hct 38.4 L, MCV 92.8, MCH 30.9, MCHC 33.3, RDW Std Deviation 47.5 H, RDW Coeff of Tracy 13.9, Plt Count 107 L, MPV 11.5, Immature Gran % (Auto) 0.200, Neut % (Auto) 53.4, Lymph % (Auto) 25.5, [place] % (Auto) 9.6, Eos % (Auto) 10.2 H, Baso % (Auto) 1.1 H, Absolute Neuts (auto) 3.4, Absolute Lymphs (auto) 1.62, Nucleated RBC % 0, Sodium 141, Potassium 3.8, Chloride 108, Carbon Dioxide 24.4, Anion Gap 9, BUN 9, Creatinine 0.81, Estim Creat Clear Calc 71.52, Est GFR (MDRD) Non-Af 89, BUN/Creatinine Ratio 11.6, Glucose 93, Calcium 8.6 D/C Instructions Discharge Activity: Return to Normal Activity Call your doctor if you observe: Fever of 101 or Higher, Shortness of breath, Fainting spells and Chest pain DC O2, CPAP, BIPAP Needs Home O2 Discharge instructions: No Meaningful Use Info Meaningful Use Meaningful Use Diagnoses (Choose all that apply): VTE VTE Anticoag overlap given w/in hospital stay or rx'd at dc?: No Pt receive overlap for 5 days?: No Reason overlap not ordered, prescribed, or given for 5 days: Treatment Not Indicated Discharge Plan Admission Admit Date/Time: 04/27/25 20:36 Attending Provider: Jesus Saldivar Primary Care Provider: Becky Cabral Consulting Providers: Umair Robbins; Jesus Novak Discharge Orders/Prescriptions Prescriptions: New Eliquis DVT-PE Treat 30D Start 5 mg (74 tabs) tablets,dose pack 5 mg PO BID 30 Days Qty: 74 0RF Rx Instructions: 10 mg p.o. twice daily for 7 days and subsequently 5 mg twice daily No Action lutein 6 mg capsule 6 mg PO DAILY coenzyme Q10 100 mg capsule 100 mg PO DAILY pantoprazole 20 mg tablet,delayed release (DR/EC) 20 mg PO DAILY nitroglycerin [Nitrostat] 0.4 mg tablet, sublingual 0.4 mg SUBLINGUAL Q5-15M PRN (Reason: Chest pain) Qty: 25 3RF rosuvastatin 40 mg tablet 40 mg PO DAILY Ofev 150 mg capsule 150 mg PO Q12H clopidogrel 75 mg tablet 75 mg PO DAILY Qty: 90 4RF ezetimibe 10 mg tablet 10 mg PO DAILY Qty: 90 4RF metoprolol succinate 25 mg tablet extended release 24 hr 25 mg PO QHS Qty: 90 4RF Referrals / Follow Up: Becky Cabral MD [Primary Care Provider, Internal Medicine] - In 1 Week Disposition Disposition (needs filled in before D/C Order can be placed): Home, Self Care Charges/Coding Visit Charges Inpatient E&M: 63531 Disch Hosp >30min
[2025-04-30 07:00] VITALS: PULSE 50
[2025-04-30 07:48] VITALS: BP 116/64; PULSE 56; RESP 14; TEMP 36.6; O2SAT 96
[2025-04-30] MEDS: Lactobacillis Acidophilus 1 CAP PO (07:52)
[2025-04-30] MEDS: APIXABAN 5 MG TABLET 10 MG PO (07:53)
[2025-04-30 08:54] VITALS: O2SAT 95; O2SAT 97
[2025-04-30 08:56] VITALS: O2SAT 95
--- NOTE | 2025-04-30 09:49 | CASEMGMT ---
Per the individual pension adviser, pt does not qualify for home oxygen. TC to [facility] pharmacy who states that the pt has a 0$ co-pay for the Eliquis. RN CM to the pt room at this time. Pt standing up independently getting dressed. Pt states that he still feels safe discharging home today and denies the need for any additional therapy or resources. Pt denies any further DC needs or concerns.
== END 2025-04-30 10:38 | disposition home or self-care (01) | DRG 175 ==
LOC: ED 20:08 → PCU 20:48
PROVIDERS: Admitting Provider Internal Medicine; Emergency Provider Emergency Medicine; PCP Internal Medicine; Visit Provider Internal Medicine
DX: I26.02 Saddle embolus of pulmonary artery with acute cor pulmonale (principal); I82.441 Acute embolism and thrombosis of right tibial vein; I82.451 Acute embolism and thrombosis of right peroneal vein; I26.09 Other pulmonary embolism with acute cor pulmonale; D69.6 Thrombocytopenia, unspecified; J84.10 Pulmonary fibrosis, unspecified; I10 Essential (primary) hypertension; I07.1 Rheumatic tricuspid insufficiency; E78.00 Pure hypercholesterolemia, unspecified; I25.10 Atherosclerotic heart disease of native coronary artery without angina pectoris; M19.90 Unspecified osteoarthritis, unspecified site; I25.2 Old myocardial infarction; K21.9 Gastro-esophageal reflux disease without esophagitis; I49.3 Ventricular premature depolarization; R09.02 Hypoxemia; Z79.02 Long term (current) use of antithrombotics/antiplatelets; Z79.899 Other long term (current) drug therapy; Z87.891 Personal history of nicotine dependence; Z95.1 Presence of aortocoronary bypass graft; Z95.5 Presence of coronary angioplasty implant and graft
CPT/HCPCS: 36415; 71045; 71275; 80048; 80053; 80061; 81001; 83735; 83880; 84100; 84443; 84484; 85025; 85379; 85610; 85730; 86850; 86900; 86901; 93005; 93306; 93970; 94640; 94668; 97802; 99252; 99285; Q9967; A4216; G0463

== ENCOUNTER 2025-05-01 10:46 | Emergency (ER) | payer MEDICARE, OTHER, SELFPAY ==
[2025-05-01 10:46] VITALS: BP 146/77; PULSE 95; RESP 18; TEMP 36.8; O2SAT 100; BMI 21.8
--- NOTE | 2025-05-01 10:50 | RAD_ITS ---
PROCEDURE: SHOULDER MIN 2 VIEWS 05/01/2025 REASON FOR EXAM: HEARD A SNAP TECHNIQUE: Procedure Code: RADSH Modality: DX Procedure: SHOULDER MIN 2 VIEWS Laterality: Right shoulder COMPARISON: None FINDINGS: Bones: No fracture. Joints: Normal alignment of the acromioclavicular and glenohumeral joints. Soft tissues: Soft tissues are unremarkable. Other: RAD/Shoulder min 2 Views IMPRESSION: NO ACUTE FRACTURE OR DISLOCATION. Reading Location: [place] [id number]
--- NOTE | 2025-05-01 12:15 | CT_ITS ---
PROCEDURE: CTA UPPER EXT W/WO CONTRAST 05/01/2025 REASON FOR EXAM: HEMATOMA, RIGHT UPPER ARM TECHNIQUE: Procedure Code: [id number] Modality: CT Procedure: CTA UPPER EXT W/WO CONTRAST Coronal and Sagittal reconstruction series were provided. CONTRAST: Isovue 370 VOLUME: 100 mL One or more dose reduction techniques were used (e.g., Automated exposure control, adjustment of the mA and/or kV according to patient size, use of iterative reconstruction technique). RADIATION DOSE SUMMARY: CTDlvol: 8.75 mGy DLP: 400.14 mGycm COMPARISON: None FINDINGS: Bones: No evidence of fracture. Joints: Joint space(s) preserved. No subluxation or dislocation. Soft Tissues: There is evidence of a 6.8 cm 3.5 cm by 5.6 cm heterogeneous soft tissue density in the right biceps. Increased markings are seen in the subcutaneous tissue. If the patient has a history of trauma, this may represent an intramuscular hematoma with possible rupture of the biceps tendon. Correlation with MRI recommended. CT/CTA Upper Ext W/WO Contrast IMPRESSION: Findings suggestive of a combination of possible injury to the biceps tendon wi th enlargement of the biceps muscle and hematoma. Correlation with MRI recommended. Reading Location: [facility]
--- NOTE | 2025-05-01 12:17 | EX.ED.UPPERE ---
HPI History of Present Illness Chief Complaint: Upper Extremity Injury Informant: patient Narrative Narrative: Patient is an 79-year-old male with history of pulmonary fibrosis, coronary artery disease, prior CABG and recent diagnosis of bilateral PE as well as DVT started on Xarelto. He is presenting with worsening pain bruising and swelling to his right upper extremity. Patient states yesterday he was pulling gas charger cord out of the wall when he felt a pop in his right shoulder/upper arm. Since then he had increased bruising, swelling and pain to the area. Was recently started on Xarelto for diagnosis of DVT as well as bilateral PEs. Did not take his dose this morning. Due to the pain despite taking Tylenol and increased swelling and bruising he came to the ER for further evaluation. Denies any trauma or falls. Has had some chronic pain in his right shoulder but this does not feel like his chronic pain. No other complaints or concerns at this time. [facility] Medical History GI bleed Former smoker Pulmonary fibrosis COVID-19 Encounter for screening for COVID-19 HLD (hyperlipidemia) Pure hypercholesterolemia Screening for intestinal cancer Essential hypertension Diaphoresis Lightheaded Hematemesis Premature ventricular contraction Premature atrial contractions Paroxysmal ventricular tachycardia Atherosclerotic heart disease of [place] coronary artery without angina pectoris Presence of stent in coronary artery (~12/03/14) Encounter for long-term current use of high risk medication Supraventricular tachycardia Old myocardial infarction Home Medications ?Medication ?Instructions ?Recorded ?Last Taken ?Type coenzyme Q10 100 mg capsule 100 mg PO DAILY supplement 11/23/17 Unknown History lutein 6 mg capsule 6 mg PO DAILY supplement 11/27/17 Unknown History clopidogrel 75 mg tablet 75 mg PO DAILY anti platelet #90 08/29/22 Unknown Rx tabs ezetimibe 10 mg tablet 10 mg PO DAILY cholesterol #90 tabs 08/29/22 Unknown Rx metoprolol succinate 25 mg 25 mg PO QHS blood pressure #90 08/29/22 Unknown Rx tablet,extended release 24 hr tabs pantoprazole 20 mg tablet,delayed 20 mg PO DAILY reflux 10/13/22 Unknown History release nitroglycerin 0.4 mg sublingual 0.4 mg sublingual Q5-15M PRN Chest 04/18/23 Unknown Rx tablet (Nitrostat) pain #25 tabs rosuvastatin 40 mg tablet 40 mg PO DAILY cholesterol 09/07/23 Unknown History nintedanib 150 mg capsule (Ofev) 150 mg PO Q12H breathing 04/27/25 Unknown History Held on 04/30/25. Instructions: Resume on 05/13/25. 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 apixaban 5 mg (74 tabs) tablets in 5 mg PO BID 1 month #74 tabs 04/30/25 Unknown Rx a dose pack (EliInfrafone DVT-PE Treat 30D Start) oxycodone 5 mg tablet 5 mg PO Q6H PRN pain 3 days #12 05/01/25 Unknown Rx tabs Allergy/AdvReac Type Severity Reaction Status Date / Time No Known Allergies Allergy Verified 05/01/25 10:46 Family History Father CAD (coronary artery disease) Mother CAD (coronary artery disease) Myocardial infarction Sister Diabetes Arthritis Surgical History Cataract extraction status, right eye Presence of coronary angioplasty implant and graft (~12/03/14) History of Mohs micrographic surgery for skin cancer History of local excision of skin lesion Postsurgical percutaneous transluminal coronary angioplasty (PTCA) status Aortocoronary bypass status (~07/1986) Social History Smoking Status: Former smoker alcohol intake: never substance use type: does not use caffeine: Yes Type: carbonated beverages what type of physical activity do you participate in: walking frequency: 5-6 times per week duration: 45-60 minutes/day seatbelt use: always do you feel safe at home: Yes ROS ROS ED Constitutional Constitutional ED: Denies chills or fever(s) Cardiovascular Cardiovascular: Denies chest pain Respiratory/Chest Respiratory/Chest: Denies cough or dyspnea Gastrointestinal Gastrointestinal: Denies nausea or vomiting Musculoskeletal Musculoskeletal: Reports other Details: Right upper extremity pain Integumentary Reports other Details: Bruising and swelling of the right upper extremity Hematologic/Lymphatic Hematologic/Lymphatic: Reports easy bleeding, easy bruising and other Details: On Xarelto EXAM Physical Exam Const Vital Signs: 05/01/25 10:46 Temperature 98.3 F Temperature Source Temporal Pulse Rate 95 Respiratory Rate 18 Blood Pressure 146/77 H Blood Pressure Mean 100 Pulse Ox 100 Oxygen Delivery Method Room Air Positive well nourished and well developed General Appearance ED: well developed and NAD HEENT normocephalic and atraumatic Neck full ROM and supple Neck Narrative: No JVD Chest Wall inspection of chest normal Resp normal respiratory effort and clear to auscultation bilaterally Cardio regular rate, regular rhythm and no murmurs Extremity normal to inspection Extremity Narrative: Ecchymosis and edema of the right upper extremity most pronounced in the proximal medial arm/by separate area. Tender to palpation. Firm however the compartments himself's are still soft and not consistent with compartment syndrome. Difficulty with flexion of the biceps due to pain. Preserved strength with extension of the upper arm. Normal inventory control coordinator strength bilaterally. No bony deformity present. No joint effusion of the shoulder or deformity of the shoulder present Neuro oriented x3, moves all extremities, no focal motor deficits and no sensory deficits noted Sensorium / Orientation: alert Skin Skin Narrative: Significant ecchymosis to the proximal medial right upper extremity tracking from the axilla to the AC fossa MDM MDM MDM Narrative Medical decision making narrative: Patient is 79-year-old male presenting with spontaneous pain and swelling and bruising to his right upper extremity. Protocol x-ray obtained in triage. Differential includes soft tissue contusion, bicep tendon injury, arterial bleeding and hematoma. He has good distal pulses and is neurovascular intact. He has good inventory control coordinator strength and movements of the hand. Physical exam is not consistent with compartment syndrome. Because he is on anticoagulation which is necessary given new diagnosis of VTE, CTA is obtained to ensure he does not have signs of active extravasation/bleeding. CTA CTA is suggestive combination of possible injury of the bicep tendon with a large hematoma of the bicep muscle and hematoma. Suspect likely he has spontaneous bicep tendon rupture with subsequent hematoma exacerbated by the fact that he is on Xarelto. Patient is initially given fentanyl for pain control. He remains hemodynamically stable in the emergency room [place] and given dose of oxycodone for further pain control. Case discussed with orthopedics on-call, Dr. Marsh, who is is agreeable with outpatient follow-up. Agrees that the benefits outweigh the risk of staying on anticoagulation at this time. Patient is given strict return precautions. Zack wrap applied to his upper extremity. Counseled that he likely has a bicep tendon rupture with associated bleeding and bruising however the bleeding appears to be stable at this time. Patient is agreeable. Discharged home in stable condition peer Radiography Diagnostic Testing: Clinical Impression(s) from Imaging Studies Shoulder X-Ray 05/01/25 10:50 IMPRESSION: NO ACUTE FRACTURE OR DISLOCATION. Reading Location: [facility] Diagnostic Data Shoulder X-Ray 05/01/25 10:50 IMPRESSION: NO ACUTE FRACTURE OR DISLOCATION. Reading Location: [facility] Upper Extremity CTA 05/01/25 12:15 IMPRESSION: Findings suggestive of a combination of possible injury to the biceps tendon with enlargement of the biceps muscle and hematoma. Correlation with MRI recommended. 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 Discharge Plan Triage Chief Complaint: Upper Extremity Injury ED Provider: Rolanda Peralta Dx/Rx/DC Orders Clinical Impression: Biceps rupture, proximal, Hematoma of right upper extremity, Chronic anticoagulation Instructions: ED Bandage Elastic Wrap, ED Hematoma, ED Bicep Tendon Rupture Prescriptions: New oxycodone 5 mg tablet 5 mg PO Q6H PRN (Reason: pain) 3 Days Qty: 12 0RF No Action lutein 6 mg capsule 6 mg PO DAILY coenzyme Q10 100 mg capsule 100 mg PO DAILY pantoprazole 20 mg tablet,delayed release (DR/EC) 20 mg PO DAILY nitroglycerin [Nitrostat] 0.4 mg tablet, sublingual 0.4 mg SUBLINGUAL Q5-15M PRN (Reason: Chest pain) Qty: 25 3RF rosuvastatin 40 mg tablet 40 mg PO DAILY Ofev 150 mg capsule 150 mg PO Q12H Eliquis DVT-PE Treat 30D Start 5 mg (74 tabs) tablets,dose pack 5 mg PO BID 30 Days Qty: 74 0RF Rx Instructions: 10 mg p.o. twice daily for 7 days and subsequently 5 mg twice daily clopidogrel 75 mg tablet 75 mg PO DAILY Qty: 90 4RF ezetimibe 10 mg tablet 10 mg PO DAILY Qty: 90 4RF metoprolol succinate 25 mg tablet extended release 24 hr 25 mg PO QHS Qty: 90 4RF Primary Care Provider: Becky Cabral Referrals: Jonathan Marsh MD [Med Staff - Active Staff, Orthopedics] Becky Cabral MD [Primary Care Provider, Internal Medicine] Activity Restrictions/Additional Instructions: You have injury to your bicep muscle with associated bruising which is causing the swelling, pain and bruising of your right arm. Wear the Zack wrap to help with compression. If you have worsening pain or develop numbness or weakness of your hand please return the emergency room. Please follow-up with the orthopedist. Continue take your blood thinner at this time. You may also continue take Tylenol in addition to the pain medication prescribed. Please be aware that the pain medication can increase the risk of constipation as well as confusion and falls as well as cause nausea. You can take it up to every 6 hours but do not need to take it that much if your pain is controlled Print Language: [place]raini Disposition Disposition: Home, Self Care Discharge Date/Time: 05/01/25 16:00
[2025-05-01] MEDS: fentaNYL 100 MCG/2 ML Ampul 25 MCG IV (12:35)
[2025-05-01 12:39] VITALS: BP 149/62; PULSE 66; RESP 16; O2SAT 100
[2025-05-01 12:39] LABS: Hematocrit 39.2 % (40-54); Hemoglobin 12.8 g/dL (13.0-16.5); Immature Granulocytes Count 0.030 X10^3/uL (0.0-0.0); Mean Corp Hgb Conc 32.7 g/dL (32-36); Mean Corpuscular Volume 94.0 fL (80-94); Mean Platelet Vol. 11.4 fl (6.2-12.0); NRBC Flagged by Analyzer 0 % (0-5); Platelet Count 123 K/mm3 (150-450); RBC Distribution Width CV 14.3 % (11.6-14.6); RBC Distribution Width SD 49.7 fl (35.1-43.9); Red Blood Count 4.17 M/mm3 (4.6-6.2); White Blood Count 8.5 K/mm3 (4.4-11.0)
[2025-05-01 12:49] LABS: Prothrombin Time (Protime)PT. 15.1 SECONDS (11.7-14.9)
[2025-05-01 12:50] LABS: Partial Thromboplast Time 26.6 Seconds (24.1-36.2)
[2025-05-01 13:07] VITALS: BP 141/71; PULSE 85; RESP 16; O2SAT 100
[2025-05-01 13:11] LABS: Anion Gap 10 (5-15); BUN 13 mg/dL (4-19); BUN/Creat Ratio 17.5 RATIO (10-20); Calcium,Total 8.8 mg/dL (7.6-11.0); Carbon Dioxide 24.8 mmol/L (21.0-32.0); Chloride 108 mmol/L (98-108); Estimated Creatinine Clearance 74.67 ml/min (50-250); Glucose 80 mg/dL (70-99); Potassium 4.3 mmol/L (3.3-5.1)
[2025-05-01 14:33] VITALS: BP 129/68; PULSE 64; RESP 16; O2SAT 100
[2025-05-01 15:06] VITALS: BP 137/77; PULSE 76; RESP 16; O2SAT 100
== END 2025-05-01 16:00 | disposition home or self-care (01) ==
PROVIDERS: Emergency Provider Emergency Medicine; PCP Internal Medicine; Visit Provider Emergency Medicine
DX: S40.011A Contusion of right shoulder, initial encounter (principal); I25.10 Atherosclerotic heart disease of native coronary artery without angina pectoris; Z87.891 Personal history of nicotine dependence; I10 Essential (primary) hypertension; E78.00 Pure hypercholesterolemia, unspecified; Z79.01 Long term (current) use of anticoagulants; Z95.1 Presence of aortocoronary bypass graft; Z86.718 Personal history of other venous thrombosis and embolism; X58.XXXA Exposure to other specified factors, initial encounter; Y93.89 Activity, other specified; Z95.5 Presence of coronary angioplasty implant and graft; I25.2 Old myocardial infarction; Z79.02 Long term (current) use of antithrombotics/antiplatelets; Z79.899 Other long term (current) drug therapy; Z98.41 Cataract extraction status, right eye; Z85.828 Personal history of other malignant neoplasm of skin
CPT/HCPCS: 73030; 73206; 80048; 85025; 85610; 85730; 96374; 99283; Q9967; A4216